=== PATIENT | female | born 1945 | race Caucasian/White ===

== ENCOUNTER 2019-01-20 22:29 | Inpatient (IN) | payer MEDICARE ==
[2019-01-20] MEDS ORDERED: DILTIAZEM DRIP BOLUS FROM BAG 1 MG SOLN IV ONE ×3 (22:40→23:49)
[2019-01-20] MEDS ORDERED: DILTIAZEM 125 MG in SODIUM CHLORIDE 0.9% 100 ML IV SCH (22:45)
--- NOTE | 2019-01-20 22:50 | ED ---
Chest Pain HPI - General Chief Complaint: Chest Pain Stated Complaint: Chest Pain Time Seen by Provider: 01/20/19 22:33 Source: patient, EMS Mode of arrival: EMS - History of Present Illness Initial Comments: This patient is 73-year-old woman who presents to be evaluated for chest pain and dyspnea that started approximately 2 hours ago. Patient states that she was reading when she noticed that she was developing substernal chest aching that was radiating to her neck. She also then started feeling short of breath. Following that she called EMS. EMS placed patient on monitor and found out appear to be atrial fibrillation with a rapid rate. Patient denies any history of this previously. She has not noted any worsening or relieving factors for the pain. Denies other symptoms. MD Complaint: chest pain Onset/Timin -: hour(s) Onset: during rest (While reading) Pain Location: substernal Pain Radiation: neck Severity: moderate Quality: aching Consistency: constant Improves With: nothing Worsens With: nothing Anginal Symptoms: dyspnea - Related Data Home Medications Medication Instructions Recorded Confirmed Anastrozole [Arimidex] 1 mg PO DAILY 01/01/14 01/20/19 Insulin Detemir (Levemir) [Levemir] 55 unit SQ BID 01/01/14 01/20/19 Spironolactone [Aldactone] 25 mg PO DAILY 01/01/14 01/20/19 metFORMIN HCL 1,000 mg PO BID 01/01/14 01/20/19 Atorvastatin [Lipitor] 40 mg PO HS 01/20/19 01/20/19 Dulaglutide [Trulicity] 1.5 mg SQ TH 01/20/19 01/20/19 Furosemide [Lasix] 20 mg PO W/SUPPER 01/20/19 01/20/19 Furosemide [Lasix] 40 mg PO DAILY@0800 01/20/19 01/20/19 Gabapentin 600 mg PO QID 01/20/19 01/20/19 Insulin Lispro [humaLOG Kwikpen] See Protocol SQ AC-TID 01/20/19 01/20/19 Levothyroxine Sodium [Synthroid] 75 mcg PO DAILY 01/20/19 01/20/19 Levothyroxine Sodium [Synthroid] 200 mcg PO DAILY 01/20/19 01/20/19 Lisinopril [Zestril] 5 mg PO DAILY 01/20/19 01/20/19 Magnesium Chloride [Slow-Mag] 64 mg PO W/SUPPER 01/20/19 01/20/19 Melatonin 3 mg PO HS 01/20/19 01/20/19 Metoprolol Tartrate [Lopressor] 50 mg PO BID 01/20/19 01/20/19 Potassium Gluconate 99 mg PO W/SUPPER 01/20/19 01/20/19 Venlafaxine HCl [Effexor XR] 75 mg PO HS 01/20/19 01/20/19 Venlafaxine HCl [Effexor XR] 150 mg PO DAILY 01/20/19 01/20/19 traMADol HCL 50 mg PO TID PRN 01/20/19 01/20/19 Allergies Allergy/AdvReac Type Severity Reaction Status Date / Time fluoxetine HCl [From Prozac] Allergy Itching Verified 01/20/19 23:19 gluten Allergy Abdominal Verified 01/21/19 11:15 Pain Sulfa (Sulfonamide Allergy Itching Verified 01/20/19 23:19 Antibiotics) Review of Systems ROS Statement: Those systems with pertinent positive or pertinent negative responses have been documented in the HPI. ROS Other: All systems not noted in ROS Statement are negative. Constitutional: Denies: fever, chills Respiratory: Reports: as per HPI, dyspnea. Denies: cough, hemoptysis Cardiovascular: Reports: chest pain. Denies: palpitations, orthopnea, edema, syncope Gastrointestinal: Denies: abdominal pain, nausea, vomiting, melena, hematochezia Genitourinary: Denies: dysuria, hematuria Musculoskeletal: Denies: back pain Skin: Denies: rash Neurological: Denies: headache, weakness, numbness EKG Findings - EKG Results: EKG: interpreted by ERMD, normal axis, normal QRS EKG shows: atrial fibrillation (Rate approximately 174 bpm) - Blocks, Webster, Hypertrophy, ST Abn: Repolarization changes or abnormalities: ST suggestive of injury (In the inferior and anterolateral leads) Past Medical History Past Medical History: Hypertension Additional Past Medical History / Comment(s): Heart disease Past Surgical History: Appendectomy Past Psychological History: No Psychological Hx Reported Smoking Status: Former smoker Past Alcohol Use History: None Reported Past Drug Use History: None Reported - Past Family History Father Family Medical History: Coronary Artery Disease (CAD), Myocardial Infarction (ID) Mother Family Medical History: Coronary Artery Disease (CAD) General Exam General appearance: alert, in no apparent distress Head exam: Present: atraumatic, normocephalic Eye exam: Present: normal appearance. Absent: scleral icterus, conjunctival injection ENT exam: Present: normal oropharynx Respiratory exam: Present: respiratory distress (Tachypnea, rate approximately 28.). Absent: wheezes, rales, rhonchi, stridor, accessory muscle use, decreased breath sounds, prolonged expiratory Cardiovascular Exam: Present: tachycardia (Rate approximately 170s during exam), irregular rhythm, normal heart sounds GI/Abdominal exam: Present: soft. Absent: distended, tenderness, guarding, rebound Extremities exam: Present: normal inspection, normal capillary refill. Absent: pedal edema, calf tenderness Back exam: Present: normal inspection Neurological exam: Present: alert Skin exam: Present: warm, dry, intact, normal color. Absent: rash Course Vital Signs 01/20/19 01/20/19 01/20/19 22:41 22:45 22:57 Temperature 98 F Pulse Rate 168 H 145 H Pulse Rate [ 168 H Jigman ] Respiratory 28 H 28 H Rate Blood Pressure 158/89 114/76 Blood Pressure [Right Calf] O2 Sat by Pulse 98 98 Oximetry 01/21/19 01/21/19 01/21/19 00:24 01:21 03:23 Temperature Pulse Rate 154 H 142 H 142 H Pulse Rate [ Jigman ] Respiratory 18 18 22 Rate Blood Pressure 126/83 109/78 100/57 Blood Pressure [Right Calf] O2 Sat by Pulse 99 100 97 Oximetry 01/21/19 01/21/19 01/21/19 04:39 06:16 07:22 Temperature 98.5 F Pulse Rate 149 H 141 H 135 H Pulse Rate [ Jigman ] Respiratory 22 20 22 Rate Blood Pressure 110/78 105/60 124/64 Blood Pressure [Right Calf] O2 Sat by Pulse 97 97 Oximetry 01/21/19 01/21/19 08:30 11:37 Temperature 98.0 F Pulse Rate Pulse Rate [ 135 H 57 L Jigman ] Respiratory 20 20 Rate Blood Pressure Blood Pressure 107/70 116/63 [Right Calf] O2 Sat by Pulse 100 98 Oximetry Chest Pain MDM - MDM This patient is 73-year-old woman presenting by EMS after she developed chest pain and dyspnea. Patient found to have new onset atrial fibrillation with a rate in the 170s on arrival. She started on Cardizem bolus and IV drip which did decrease her rate to the 130s to 140s. Patient states that her symptoms had improved markedly. Patient is admitted. Patient while holding in the emergency room did have repeat troponin which did increase to 1.5. Case discussed with cardiology, Dr. Pretty, and amiodarone will be added. Critical Care Time Critical Care Time: Yes (40 minutes) Disposition Clinical Impression: Atrial fibrillation with rapid ventricular response Disposition: ADMITTED IP TO THIS HOSP Condition: Serious
[2019-01-20 22:58] LABS: HCT 28.5 % (34.0-46.0); HGB 9.2 gm/dL (11.4-16.0); Hypochromasia Moderate; MCH 33.6 pg (25.0-35.0); MCHC 32.4 g/dL (31.0-37.0); MCV 103.5 fL (80.0-100.0); Macrocytosis Moderate; Mean Platelet Volume 6.9; Platelet Count 164 k/uL (150-450); Poikilocytosis Slight; RBC 2.75 m/uL (3.80-5.40); RDW 15.9 % (11.5-15.5); WBC 8.5 k/uL (3.8-10.6)
[2019-01-20 23:01] LABS: Appearance,Urine Clear (Clear); Bacteria,Urine Moderate /hpf; Bilirubin,Urine Negative (Negative); Blood,Urine Negative (Negative); Color,Urine Light Yellow; Glucose,Urine (UA) 1+ (Negative); Ketones,Urine Negative (Negative); Leukocyte Esterase,Urine Small (Negative); Nitrite,Urine Positive (Negative); Protein,Urine Negative (Negative); RBC,Urine 1 /hpf (0-5); Specific Gravity,Urine 1.013 (1.001-1.035); Squamous Epithelial Cell,Urine 2 /hpf (0-4); Urobilinogen,Urine <2.0 mg/dL (<2.0); WBC,Urine 8 /hpf (0-5)
--- NOTE | 2019-01-20 23:04 | XR ---
EXAMINATION TYPE: XR chest 1V portable DATE OF EXAM: 01/20/2019 COMPARISON: NONE HISTORY: Chest pain TECHNIQUE: Single frontal view of the chest is obtained. FINDINGS: Heart appears enlarged. Thoracic aorta is atheromatous. Costophrenic angles are clear. The re are chest leads. There are clips at the right axilla. IMPRESSION: Mild cardiomegaly. No acute lung disease. No heart failure.
[2019-01-20 23:10] LABS: Albumin 3.8 g/dL (3.5-5.0); Calcium 9.2 mg/dL (8.4-10.2); Total Bilirubin 0.2 mg/dL (0.2-1.3); Total Protein 6.7 g/dL (6.3-8.2)
[2019-01-20 23:13] LABS: INR 0.9 (<1.2); Partial Thromboplastin Time 22.6 sec (22.0-30.0); Prothrombin Time 9.6 sec (9.0-12.0)
[2019-01-20] MEDS ORDERED: SODIUM CHLORIDE 0.9% 1,000 ML IV ONE (23:14)
[2019-01-20 23:25] LABS: Eosinophils # (M) 0.34 k/uL (0-0.7); Lymphocytes # (M) 2.38 k/uL (1.0-4.8); Monocytes # (M) 1.28 k/uL (0-1.0); Neutrophils % (M) 53 %; Nucleated Red Blood Cells 0 /100 WBC (0-0); Polychromasia Present; Total Cells Counted 100
[2019-01-20] MEDS ORDERED: MORPHINE SULFATE 4 MG/ML SYRINGE IV STA (23:49)
[2019-01-21] MEDS ORDERED: SALINE NASAL GEL 14.1 GM TUBE TOPICAL PRN (00:19)
[2019-01-21] MEDS ORDERED: DILTIAZEM DRIP BOLUS FROM BAG 1 MG SOLN IV ONE (01:35)
[2019-01-21] MEDS ORDERED: NITROGLYCERIN SL TABS 0.4 MG TAB SUBLINGUAL PRN ×2 (01:40→12:45)
[2019-01-21] MEDS ORDERED: ENOXAPARIN 120 MG/0.8 ML SYRINGE SQ SCH (02:00)
[2019-01-21] MEDS ORDERED: GABAPENTIN 300 MG CAP PO STA (04:58)
[2019-01-21] MEDS: LEVOTHYROXINE 100 MCG TAB PO SCH (06:20)
[2019-01-21] MEDS: LEVOTHYROXINE 75 MCG TAB PO SCH (06:21)
[2019-01-21] MEDS ORDERED: DEXTROSE 5% IN WATER 100 ML with AMIODARONE 150 MG IV ONE (06:43)
[2019-01-21] MEDS ORDERED: AMIODARONE 360 MG in DEXTROSE 5% IN WATER 200 ML IV ONE ×2 (06:43)
[2019-01-21] MEDS ORDERED: HEPARIN SODIUM,PORCINE 5,000 UNIT/ML 1 ML VIAL IV ONE (06:49)
[2019-01-21] MEDS ORDERED: HEPARIN SODIUM,PORCINE 5,000 UNIT/ML 1 ML VIAL IV PRN (06:49)
[2019-01-21] MEDS: HEPARIN SOD,PORK IN 0.45% NACL 25,000 UNIT in 0.45% NACL 1 250ML.BAG IV SCH (07:03)
[2019-01-21] MEDS: SPIRONOLACTONE 25 MG TAB PO SCH (08:32)
[2019-01-21] MEDS: METOPROLOL TARTRATE 50 MG TAB PO SCH ×2 (08:33→20:14)
[2019-01-21] MEDS: ANASTROZOLE 1 MG TAB PO SCH (08:33)
[2019-01-21] MEDS: VENLAFAXINE HCL ER 150 MG CAP PO SCH (08:33)
[2019-01-21] MEDS: LISINOPRIL 5 MG TAB PO SCH (08:33)
[2019-01-21] MEDS: GABAPENTIN 300 MG CAP PO SCH ×4 (08:33→20:14)
[2019-01-21] MEDS: traMADol 50 MG TAB PO PRN ×2 (08:33→17:05)
[2019-01-21] MEDS ORDERED: metFORMIN 500 MG TAB PO SCH (09:00)
--- NOTE | 2019-01-21 10:39 | P.HPIM ---
History of Present Illness H&P Date: 01/21/19 Chief Complaint: Chest pain This is 73 years old female with past medical history significant for coronary artery disease presents to the emergency department with new onset chest pain. Patient described it as tightness to the mediastinal area radiating to her lower jaw and bilateral neck with some radiation to the left shoulder. Patient never experienced this pain before and stated that she had cardiac catheterization back in late where she received 4 stents and was placed on aspirin and Plavix for 2 years later Plavix was discontinued after 2 years and patient continue taking her aspirin on daily basis. Her pain in the emergency room responded to nitroglycerin. Patient was found to have tachycardia EKG showed a new onset atrial fibrillation with heart rate 150s. Patient was started on amiodarone drip, heparin drip and cardiology consult was obtained. First troponin was slightly elevated and the second troponin came up high to 1.1 with EKG changes showing atrial fibrillation with rapid ventricular response heart rate [address] depression on inferior leads 23 and aVF with reciprocal changes on V4 V5 and V6 but again patient was tachycardic at that time. Cardiology consult was obtained and have not seen the patient. Patient stated that her diabetes has been fairly controlled with values less than 200 all the time and taking Lantus 55 units twice daily along with fair units with meals plus the sliding scale. Patient is morbidly obese have been maintaining her medication and doctors follow-up accurately and stated that she's been taking her medication as prescribed continue to take her aspirin and daily basis and stated that her family history is significant for mother with pacemaker, father with heart disease and age 72 of myocardial infarction, daughter who is diagnosed with coronary artery disease and multiple stents. Patient currently is pain-free denying recent upper respiratory symptoms, fever, night sweats, productive cough or dysuria. 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 Patient had a history of right breast cancer and received bilateral mastectomy due to large size of breast on the left as well and that was causing patient's back pain and shoulder pain. All lymph nodes resected at that time on the right side that showed negative metastasis and patient did not receive any chemo or radiation after surgery but was maintained on anastrozole since 2008 and has been following up with her oncologist outpatient Review of Systems All 14 systems reviewed and negative except as above Past Medical History Past Medical History: Coronary Artery Disease (CAD), Diabetes Mellitus, Fibromyalgia, Hypertension, Thyroid Disorder Additional Past Medical History / Comment(s): chronic bronchitis, hashimotos, memory problems, 4 heart stents at [facility] History of Any Multi-Drug Resistant Organisms: None Reported Past Surgical History: Appendectomy, Cholecystectomy, Heart Catheterization, Heart Catheterization With Stent Past Anesthesia/Blood Transfusion Reactions: No Reported Reaction Date of Last Stent Placement:: 1997 Past Psychological History: No Psychological Hx Reported Smoking Status: Former smoker Past Alcohol Use History: None Reported Past Drug Use History: None Reported - Past Family History Father Family Medical History: Coronary Artery Disease (CAD), Myocardial Infarction (M I) Mother Family Medical History: Coronary Artery Disease (CAD) Medications and Allergies Home Medications Medication Instructions Recorded Confirmed Type Anastrozole [Arimidex] 1 mg PO DAILY 01/01/14 01/20/19 History Insulin Detemir (Levemir) [Levemir] 55 unit SQ BID 01/01/14 01/20/19 History Spironolactone [Aldactone] 25 mg PO DAILY 01/01/14 01/20/19 History metFORMIN HCL 1,000 mg PO BID 01/01/14 01/20/19 History Atorvastatin [Lipitor] 40 mg PO HS 01/20/19 01/20/19 History Dulaglutide [Trulicity] 1.5 mg SQ TH 01/20/19 01/20/19 History Furosemide [Lasix] 20 mg PO W/SUPPER 01/20/19 01/20/19 History Furosemide [Lasix] 40 mg PO DAILY@0800 01/20/19 01/20/19 History Gabapentin 600 mg PO QID 01/20/19 01/20/19 History Insulin Lispro [humaLOG Kwikpen] See Protocol SQ AC-TID 01/20/19 01/20/19 Hist ory Levothyroxine Sodium [Synthroid] 75 mcg PO DAILY 01/20/19 01/20/19 History Levothyroxine Sodium [Synthroid] 200 mcg PO DAILY 01/20/19 01/20/19 History Lisinopril [Zestril] 5 mg PO DAILY 01/20/19 01/20/19 History Magnesium Chloride [Slow-Mag] 64 mg PO W/SUPPER 01/20/19 01/20/19 History Melatonin 3 mg PO HS 01/20/19 01/20/19 History Metoprolol Tartrate [Lopressor] 50 mg PO BID 01/20/19 01/20/19 History Potassium Gluconate 99 mg PO W/SUPPER 01/20/19 01/20/19 History Venlafaxine HCl [Effexor XR] 75 mg PO HS 01/20/19 01/20/19 History Venlafaxine HCl [Effexor XR] 150 mg PO DAILY 01/20/19 01/20/19 History traMADol HCL 50 mg PO TID PRN 01/20/19 01/20/19 History Allergies Allergy/AdvReac Type Severity Reaction Status Date / Time fluoxetine HCl [From Prozac] Allergy Itching Verified 01/20/19 23:19 Sulfa (Sulfonamide Allergy Itching Verified 01/20/19 23:19 Antibiotics) Physical Exam Vitals: Vital Signs Temp Pulse Pulse Resp BP BP Pulse Ox 01/21/19 08:30 98.0 F 135 H 20 107/70 100 01/21/19 07:22 135 H 22 124/64 01/21/19 06:16 98.5 F 141 H 20 105/60 97 01/21/19 04:39 149 H 22 110/78 97 01/21/19 03:23 142 H 22 100/57 97 01/21/19 01:21 142 H 18 109/78 100 01/21/19 00:24 154 H 18 126/83 99 01/20/19 22:57 145 H 28 H 114/76 98 01/20/19 22:45 168 H 01/20/19 22:41 98 F 168 H 28 H 158/89 98 Intake and Output 01/20/19 01/21/19 01/21/19 22:59 06:59 14:59 Intake Total 21.833 Output Total 2100 Balance 21.833 -2100 Intake: Intake, IV Titration 21.833 Amount Diltiazem 125 mg In 21.833 Sodium Chloride 0.9% 100 ml @ 5 MG/HR 5 mls/hr IV .Q24H [facility] Rx#:[id number] Output: Urine 2100 Other: Voiding Method Indwelling Catheter Weight 117.027 kg Gen.: in stated age, no acute distress, morbidly obese Heart: Normal S1-S2 Lungs: Clear to auscultation bilaterally Abdomen: Soft, no tenderness, positive bowel sounds in all 4 quadrant no guarding or rebound Skin: No new rash Psych: Alert and oriented 3 Neuro: No focal deficit Lower extremity enlarged but no pitting edema Results CBC & Chem 7: 01/20/19 22:44 01/20/19 22:44 Labs: Abnormal Lab Results - Last 24 Hours (Table) 01/20/19 01/20/19 01/20/19 Range/Units 22:44 22:44 22:44 RBC 2.75 L (3.80-5.40) m/uL Hgb 9.2 L (11.4-16.0) gm/dL Hct 28.5 L (34.0-46.0) % MCV 103.5 H (80.0-100.0) fL RDW 15.9 H (11.5-15.5) % Monocytes # (Manual) 1.28 H (0-1.0) k/uL Carbon Dioxide 20 L (22-30) mmol/L BUN 24 H (7-17) mg/dL Glucose 245 H (74-99) mg/dL Troponin I (0.000-0.034) ng/mL Urine Glucose (UA) 1+ H (Negative) Urine Nitrite Positive H (Negative) Ur Leukocyte Esterase Small H (Negative) Urine WBC 8 H (0-5) /hpf Urine Bacteria Moderate H (None) /hpf 01/21/19 Range/Units 05:29 RBC (3.80-5.40) m/uL Hgb (11.4-16.0) gm/dL Hct (34.0-46.0) % MCV (80.0-100.0) fL RDW (11.5-15.5) % Monocytes # (Manual) (0-1.0) k/uL Carbon Dioxide (22-30) mmol/L BUN (7-17) mg/dL Glucose (74-99) mg/dL Troponin I 1.150 H* (0.000-0.034) ng/mL Urine Glucose (UA) (Negative) Urine Nitrite (Negative) Ur Leukocyte Esterase (Negative) Urine WBC (0-5) /hpf Urine Bacteria (None) /hpf Thrombosis Risk Factor Assmnt - Choose All That Apply Any of the Below Risk Factors Present?: Yes Each Factor Represents 1 point: Obesity (BMI >25) Other Risk Factors: Yes Each Risk Factor Represents 2 Points: Age 61-74 years Thrombosis Risk Factor Assessment Total Risk Factor Score: 3 Thrombosis Risk Factor Assessment Level: Moderate Risk Assessment and Plan Assessment: 1. Atrial fibrillation with rapid ventricular response. 2. Elevated troponin which could represent non-ST elevation NM versus demand mismatch ischemia. 3. New onset chest pain. 4. Morbid obesity. 5. Diabetes mellitus type 2 insulin-dependent. 6. Hypertension. 7. Coronary artery disease status post stenting in the late . 8. Breast cancer status post bilateral mastectomy on anastrozole therapy. 9. Fibromyalgia. 10. Hyperlipidemia. 11. Anxiety and depression. 12. Hypothyroidism. Patient was started on heparin drip and amiodarone drip in the emergency department, heart rate still fluctuating between 85 and 120, patient is no l onger having chest pain and seems to be hemodynamically stable with stable vital signs, cardiology informed about current condition and consideration for heart rate controlling agent to be determined by cardiology and we will keep patient nothing by mouth except for ice chips at this point for possible cardiac catheterization as ischemia likely the culprit for her atrial fibrillation. We will resume her Lantus twice daily regimen and place patient on insulin sliding scale, pain for glucose less than 180 during this hospital stay. Hold metformin and resume her blood pressure medication with holding parameters. Continue her thyroid fibromyalgia and depression medication. Continue anastrozole. Repeat EKG stat when heart rate is below 100. Plan discussed with patient and nursing staff and discussed with cardiology who was running on the floor
[2019-01-21 11:12] LABS: Glucose,Whole Blood 309 mg/dL (75-99)
[2019-01-21] MEDS: INSULIN DETEMIR (LEVEMIR) 100 UNIT/ML SYR SQ SCH ×2 (11:16→20:15)
[2019-01-21] MEDS: INSULIN ASPART (NovoLOG) 100 UNIT/ML VIAL SQ SCH ×3 (11:17→20:15)
[2019-01-21] MEDS ORDERED: FUROSEMIDE 40 MG TAB PO STA (11:59)
[2019-01-21 12:43] LABS: Glucose,Whole Blood 320 mg/dL (75-99)
[2019-01-21] MEDS ORDERED: AMIODARONE 300 MG in DEXTROSE 5% IN WATER 250 ML IV SCH ×2 (12:43)
[2019-01-21] MEDS ORDERED: SODIUM CHLORIDE 0.9% 1,000 ML in EMPTY BAG 1 BAG IV ONE (12:45)
[2019-01-21] MEDS ORDERED: ALPRAZolam 0.25 MG TAB PO PRN (12:45)
[2019-01-21] MEDS ORDERED: ASPIRIN 325 MG TAB PO STA (12:45)
[2019-01-21] MEDS ORDERED: ATORVASTATIN 80 MG TAB PO STA (12:45)
[2019-01-21] MEDS ORDERED: ALPRAZolam 0.5 MG TAB PO PRN (12:45)
[2019-01-21 13:18] LABS: Basophils % (A) 0 %; Eosinophils # (A) 0.1 k/uL (0-0.7); Eosinophils % (A) 2 %; HCT 29.8 % (34.0-46.0); HGB 9.2 gm/dL (11.4-16.0); Hypochromasia Marked; Lymphocytes # (A) 0.9 k/uL (1.0-4.8); Lymphocytes % (A) 11 %; MCH 33.5 pg (25.0-35.0); MCV 107.8 fL (80.0-100.0); Macrocytosis Marked; Monocytes # (A) 0.5 k/uL (0-1.0); Monocytes % (A) 7 %; Neutrophils # (A) 6.1 k/uL (1.3-7.7); Neutrophils % (A) 78 %; Platelet Count 177 k/uL (150-450); Poikilocytosis Slight; RBC 2.76 m/uL (3.80-5.40); RDW 15.8 % (11.5-15.5); WBC 7.8 k/uL (3.8-10.6)
--- NOTE | 2019-01-21 13:35 | P.CRDCN ---
History of Present Illness Consult date: 01/21/19 Reason for Consult (text): Letha. marcell with RVR History of present illness: This is a 73-year-old female patient of Dr. Mcwilliams with past medical history of coronary artery disease with stents previously done at [facility], diabetes mellitus, hypertension, hypothyroidism with history of Sindhu's, breast cancer. Patient states she developed chest pain that went up into her jaw along with mild shortness of breath. She states she felt a little lightheaded and dizzy. She denies any palpitations. She came into [facility] emergency center and found to have atrial fibrillation with a heart rate in the 150s. She was started on Cardizem drip but heart rate remained in the 150s and she was started on amiodarone drip. Heart rate dropped down to 130s and now converted to a sinus rhythm. Amiodarone drip will be discontinued. Troponins been elevated initially 0.012, 1.150, 2.620. Hemoglobin 9.2, BUN 24 and creatinine 0.93 at the time of this evaluation. Patient states that the chest pain going up into her jaw, shortness of breath and dizziness are gone. Patient is very anxious and voices that she does not want to undergo heart catheterization right now. Patient will be set up for heart catheterization tomorrow morning. Review Of Systems: Constitutional: No fever, no chills, no night sweats. No weight change. No weakness, fatigue or lethargy. No daytime sleepiness. EENT: No headache. No blurred vision or double vision, no loss of vision. No loss of Hearing, no ringing in the ears, no dizziness. No nasal drainage or congestion. No epistaxis. No sore throat. Lungs: No shortness of breath, cough, no sputum production. No wheezing. Cardiovascular: No chest pain, no lower extremity edema. No palpitations. No paroxysmal nocturnal dyspnea. No orthopnea. No lightheadedness or dizziness. No syncopal episodes. Abdominal: No abdominal pain. No nausea, vomiting. No diarrhea. No constipation. No bloody or tarry stools.. No loss of appetite. Genitourinary: No dysuria, increased frequency, urgency. No urinary retention. Musculoskeletal: No myalgias. No muscle weakness, no gait dysfunction, no frequent falls. No back pain. No neck pain. Integumentary: No wounds, no lesions. No rash or pruritus. No unusual bruising. No change in hair or nails. Neurologic: No aphasia. No facial droop. No change in mentation. No head injury. No headache. No paralysis. No paresthesia. Psychiatric: No depression. No anxiety. No mood swings. Endocrine: No abnormal blood sugars. No weight change. No excessive sweating or thirst. No cold intolerance. No weight change. Gen: This is a a morbidly obese female. Patient is resting comfortably and appears to be in no acute distress. HEENT: Head is atraumatic, normocephalic. Pupils equal, round. Sclerae is ani cteric. NECK: Supple. No JVD. No lymphadenopathy. No thyromegaly. LUNGS: Clear to auscultation. No wheezes or rhonchi. No intercostal retractions. HEART: Regular rate and rhythm. No murmur. ABDOMEN: Soft. Bowel sounds are present. No masses. No tenderness. Teixeira catheter in place. EXTREMITIES: 1+ bilateral pedal edema. No calf tenderness. NEUROLOGICAL: Patient is awake, alert and oriented x3. Cranial nerves 2 through 12 are grossly intact. Assessment: New onset A. fib with RVR, probable paroxysmal atrial fibrillation Problem non-ST elevated myocardial infarction History of coronary artery disease with 4 stents and last heart catheterization in 1997 at [facility] Diabetes mellitus type 2. Hypertension Hypothyroidism History of breast cancer Plan: Discontinue amiodarone drip Start amiodarone 200 mg 3 times daily orally Continue Lopressor 50 mg twice daily Continue aspirin, spironolactone, Lasix 40 mg in the morning and 20 g in the evening Continue heparin drip Scheduled for heart catheterization to further assess coronary artery disease. Risks benefits and alternative therapies above-mentioned procedure and for gross sedation/analgesia as well as the serum blood product administration, if indicated as they pertain to this patient. Hold metformin for scheduled heart catheterization Obtain 2-D echocardiogram and Doppler study to assess cardiac structure and f unction Further recommendations to follow based upon clinical course Thank you kindly for this consultation Nurse practitioner note has been reviewed, I agree with documented findings and plan of care. Patient was seen and examined. Past Medical History Past Medical History: Coronary Artery Disease (CAD), Diabetes Mellitus, Fibromyalgia, Hypertension, Thyroid Disorder Additional Past Medical History / Comment(s): chronic bronchitis, hashimotos, memory problems, 4 heart stents at [facility] History of Any Multi-Drug Resistant Organisms: None Reported Past Surgical History: Appendectomy, Cholecystectomy, Heart Catheterization, Heart Catheterization With Stent Past Anesthesia/Blood Transfusion Reactions: No Reported Reaction Date of Last Stent Placement:: 1997 Past Psychological History: No Psychological Hx Reported Smoking Status: Former smoker Past Alcohol Use History: None Reported Past Drug Use History: None Reported - Past Family History Father Family Medical History: Coronary Artery Disease (CAD), Myocardial Infarction (NH) Mother Family Medical History: Coronary Artery Disease (CAD) Medications and Allergies Home Medications Medication Instructions Recorded Confirmed Type Anastrozole [Arimidex] 1 mg PO DAILY 01/01/14 01/20/19 History Insulin Detemir (Levemir) [Levemir] 55 unit SQ BID 01/01/14 01/20/19 History Spironolactone [Aldactone] 25 mg PO DAILY 01/01/14 01/20/19 History metFORMIN HCL 1,000 mg PO BID 01/01/14 01/20/19 History Atorvastatin [Lipitor] 40 mg PO HS 01/20/19 01/20/19 History Dulaglutide [Trulicity] 1.5 mg SQ TH 01/20/19 01/20/19 History Furosemide [Lasix] 20 mg PO W/SUPPER 01/20/19 01/20/19 History Furosemide [Lasix] 40 mg PO DAILY@0800 01/20/19 01/20/19 History Gabapentin 600 mg PO QID 01/20/19 01/20/19 History Insulin Lispro [humaLOG Kwikpen] See Protocol SQ AC-TID 01/20/19 01/20/19 History Levothyroxine Sodium [Synthroid] 75 mcg PO DAILY 01/20/19 01/20/19 History Levothyroxine Sodium [Synthroid] 200 mcg PO DAILY 01/20/19 01/20/19 History Lisinopril [Zestril] 5 mg PO DAILY 01/20/19 01/20/19 History Magnesium Chloride [Slow-Mag] 64 mg PO W/SUPPER 01/20/19 01/20/19 History Melatonin 3 mg PO HS 01/20/19 01/20/19 History Metoprolol Tartrate [Lopressor] 50 mg PO BID 01/20/19 01/20/19 History Potassium Gluconate 99 mg PO W/SUPPER 01/20/19 01/20/19 History Venlafaxine HCl [Effexor XR] 75 mg PO HS 01/20/19 01/20/19 History Venlafaxine HCl [Effexor XR] 150 mg PO DAILY 01/20/19 01/20/19 History traMADol HCL 50 mg PO TID PRN 01/20/19 01/20/19 History Allergies Allergy/AdvReac Type Severity Reaction Status Date / Time fluoxetine HCl [From Prozac] Allergy Itching Verified 01/20/19 23:19 gluten Allergy Abdominal Verified 01/21/19 11:15 Pain Sulfa (Sulfonamide Allergy Itching Verified 01/20/19 23:19 Antibiotics) Physical Exam Vitals: Vital Signs Temp Pulse Pulse Resp BP BP Pulse Ox 01/21/19 11:37 57 L 20 116/63 98 01/21/19 08:30 98.0 F 135 H 20 107/70 100 01/21/19 07:22 135 H 22 124/64 01/21/19 06:16 98.5 F 141 H 20 105/60 97 01/21/19 04:39 149 H 22 110/78 97 01/21/19 03:23 142 H 22 100/57 97 01/21/19 01:21 142 H 18 109/78 100 01/21/19 00:24 154 H 18 126/83 99 01/20/19 22:57 145 H 28 H 114/76 98 01/20/19 22:45 168 H 01/20/19 22:41 98 F 168 H 28 H 158/89 98 Intake and Output 01/20/19 01/21/19 01/21/19 22:59 06:59 14:59 Intake Total 21.833 Output Total 2100 Balance 21.833 -2100 Intake: Intake, IV Titration 21.833 Amount Diltiazem 125 mg In 21.833 Sodium Chloride 0.9% 100 ml @ 5 MG/HR 5 mls/hr IV .Q24H [facility] Rx#:[id number] Output: Urine 2100 Other: Voiding Method Indwelling Catheter Weight 117.027 kg Results 01/21/19 12:49 01/20/19 22:44 Cardiac Enzymes 1001/20/19 01/21/19 Range/Units 22:44 22:44 05:29 AST 25 (14-36) U/L Troponin I <0.012 1.150 H* (0.000-0.034) ng/mL 01/21/19 Range/Units 10:52 AST (14-36) U/L Troponin I 2.620 H* (0.000-0.034) ng/mL Coagulation 01/20/19 Range/Units 22:44 PT 9.6 (9.0-12.0) sec APTT 22.6 (22.0-30.0) sec CBC 01/20/19 Range/Units 22:44 WBC 8.5 (3.8-10.6) k/uL RBC 2.75 L (3.80-5.40) m/uL Hgb 9.2 L (11.4-16.0) gm/dL Hct 28.5 L (34.0-46.0) % Plt Count 164 (150-450) k/uL Comprehensive Metabolic Panel 01/20/19 Range/Units 22:44 Sodium 139 (137-145) mmol/L Potassium 4.0 (3.5-5.1) mmol/L Chloride 105 (98-107) mmol/L Carbon Dioxide 20 L (22-30) mmol/L BUN 24 H (7-17) mg/dL Creatinine 0.93 (0.52-1.04) mg/dL Glucose 245 H (74-99) mg/dL Calcium 9.2 (8.4-10.2) mg/dL AST 25 (14-36) U/L ALT 33 (9-52) U/L Alkaline Phosphatase 100 (38-126) U/L Total Protein 6.7 (6.3-8.2) g/dL Albumin 3.8 (3.5-5.0) g/dL Current Medications Generic Name Dose Route Start Last Admin Trade Name Freq PRN Reason Stop Dose Admin Anastrozole 1 mg 01/21/19 09:00 01/21/19 08:33 Arimidex PO 1 mg DAILY [facility] Administration Aspirin 325 mg 01/22/19 09:00 Aspirin PO DAILY [facility] Atorvastatin Calcium 40 mg 01/21/19 21:00 Lipitor PO HS [facility] Furosemide 40 mg 01/22/19 08:00 Lasix PO DAILY@0800 [facility] Furosemide 20 mg 01/21/19 17:30 Lasix PO W/SUPPER [facility] Gabapentin 600 mg 01/21/19 09:00 01/21/19 08:33 Neurontin PO 600 mg QID [facility] Administration Heparin Sodium (Porcine) 0 unit 01/21/19 06:49 Heparin IV PER PROTOCOL PRN Low PTT Protocol Diltiazem HCl 125 mg/ Sodium 125 mls @ 5 mls/hr 01/20/19 22:45 01/21/19 03:18 Chloride IV 10 mg/hr .Q24H [facility] 10 mls/hr Infusion 5 MG/HR Heparin Sodium/Sodium Chloride 250 mls @ 9.947 mls/hr 01/21/19 07:00 01/21/19 07:03 25,000 unit/ Sodium Chloride IV 8.5 units/kg/hr .Q24H [facility] 9.947 mls/hr Administration Protocol 8.5 UNITS/KG/HR Insulin Aspart 0 unit 01/21/19 12:30 01/21/19 11:17 Novolog SQ 8 unit ACHS [facility] Administration Protocol Insulin Detemir 55 unit 01/21/19 11:15 01/21/19 11:16 Levemir SQ Not Given BID@0700,2100 [facility] Levothyroxine Sodium 200 mcg 01/21/19 06:30 01/21/19 06:20 Synthroid PO 200 mcg DAILY@0630 [facility] Administration Levothyroxine Sodium 75 mcg 01/21/19 06:30 01/21/19 06:21 Synthroid PO 75 mcg DAILY@0630 [facility] Administration Lisinopril 5 mg 01/21/19 09:00 01/21/19 08:33 Zestril PO 5 mg DAILY [facility] Administration Metformin HCl 1,000 mg 01/21/19 09:00 01/21/19 08:32 Glucophage PO 1,000 mg BID [facility] Administration Metoprolol Tartrate 50 mg 01/21/19 09:00 01/21/19 08:33 Lopressor PO 50 mg BID [facility] Administration Nitroglycerin 0.4 mg 01/21/19 01:40 Nitrostat SUBLINGUAL Q5M PRN Chest Pain Dulaglutide [ 1.5 mg 01/26/19 09:00 Trulicity] 1.5 Mg SQ Th@0900 [facility] Potassium Chloride 10 meq 01/21/19 17:30 K-Dur 10 PO W/SUPPER [facility] Sodium Chloride 1 applic 01/21/19 00:19 01/21/19 04:41 [place] Nasal Gel TOPICAL 1 applic Q4HR PRN Administration Dry Nasal Passages Spironolactone 25 mg 01/21/19 09:00 01/21/19 08:32 Aldactone PO 25 mg DAILY [facility] Administration Tramadol HCl 50 mg 01/21/19 01:43 01/21/19 08:33 Ultram PO 50 mg TID PRN Administration Pain Venlafaxine HCl 150 mg 01/21/19 09:00 01/21/19 08:33 Effexor Xr PO 150 mg DAILY [facility] Administration Venlafaxine HCl 75 mg 01/21/19 21:00 Effexor Xr PO HS [facility] Intake and Output 01/20/19 01/21/19 01/21/19 22:59 06:59 14:59 Intake Total 21.833 Output Total 2100 Balance 21.833 -2100 Intake: Intake, IV Titration 21.833 Amount Diltiazem 125 mg In 21.833 Sodium Chloride 0.9% 100 ml @ 5 MG/HR 5 mls/hr IV .Q24H [facility] Rx#:[id number] Output: Urine 2100 Other: Voiding Method Indwelling Catheter Weight 117.027 kg 01/20/19 22:44 01/20/19 22:44
[2019-01-21] MEDS: FUROSEMIDE 20 MG TAB PO SCH (15:52)
[2019-01-21 16:55] LABS: Glucose,Whole Blood 204 mg/dL (75-99)
[2019-01-21] MEDS: AMIODARONE 200 MG TAB PO SCH ×2 (17:04→20:14)
[2019-01-21] MEDS: POTASSIUM CHLORIDE ER 10 MEQ TAB.ER.PRT PO SCH (17:04)
[2019-01-21] MEDS ORDERED: MAGNESIUM CHLORIDE 64 MG PO SCH (17:30)
[2019-01-21 20:07] LABS: Glucose,Whole Blood 201 mg/dL (75-99)
[2019-01-21] MEDS: VENLAFAXINE HCL ER 75 MG CAP PO SCH (20:20)
[2019-01-22] MEDS: traMADol 50 MG TAB PO PRN ×2 (00:41→11:43)
[2019-01-22] MEDS: HEPARIN SOD,PORK IN 0.45% NACL 25,000 UNIT in 0.45% NACL 1 250ML.BAG IV SCH (00:42)
[2019-01-22] MEDS: AMIODARONE 200 MG TAB PO SCH ×3 (05:55→20:32)
[2019-01-22] MEDS: FUROSEMIDE 40 MG TAB PO SCH (05:55)
[2019-01-22] MEDS: METOPROLOL TARTRATE 50 MG TAB PO SCH ×2 (05:55→20:32)
[2019-01-22] MEDS: LEVOTHYROXINE 100 MCG TAB PO SCH (05:55)
[2019-01-22] MEDS: LEVOTHYROXINE 75 MCG TAB PO SCH (05:55)
[2019-01-22] MEDS: ANASTROZOLE 1 MG TAB PO SCH (05:56)
[2019-01-22] MEDS: VENLAFAXINE HCL ER 150 MG CAP PO SCH (05:56)
[2019-01-22] MEDS: GABAPENTIN 300 MG CAP PO SCH ×4 (05:56→20:33)
[2019-01-22] MEDS: LISINOPRIL 5 MG TAB PO SCH (05:56)
[2019-01-22] MEDS: SPIRONOLACTONE 25 MG TAB PO SCH (05:56)
[2019-01-22 06:16] LABS: Glucose,Whole Blood 176 mg/dL (75-99)
[2019-01-22 06:18] LABS: Anisocytosis Slight; Basophils % (A) 0 %; Eosinophils # (A) 0.2 k/uL (0-0.7); Eosinophils % (A) 3 %; HCT 24.4 % (34.0-46.0); HGB 7.9 gm/dL (11.4-16.0); Hypochromasia Moderate; Lymphocytes # (A) 1.3 k/uL (1.0-4.8); Lymphocytes % (A) 18 %; MCH 33.6 pg (25.0-35.0); MCHC 32.6 g/dL (31.0-37.0); Macrocytosis Moderate; Mean Platelet Volume 6.3; Monocytes # (A) 0.6 k/uL (0-1.0); Monocytes % (A) 9 %; Neutrophils # (A) 4.5 k/uL (1.3-7.7); Neutrophils % (A) 66 %; Platelet Count 147 k/uL (150-450); Poikilocytosis Slight; RBC 2.36 m/uL (3.80-5.40); RDW 16.1 % (11.5-15.5); WBC 6.8 k/uL (3.8-10.6)
[2019-01-22] MEDS: INSULIN ASPART (NovoLOG) 100 UNIT/ML VIAL SQ SCH ×4 (06:30→20:33)
[2019-01-22] MEDS: INSULIN DETEMIR (LEVEMIR) 100 UNIT/ML SYR SQ SCH ×2 (06:30→20:33)
[2019-01-22 07:03] LABS: Cholesterol 142 mg/dL (<200); HDL Cholesterol 31 mg/dL (40-60); LDL Cholesterol,Calculated 78 mg/dL (0-99); Triglycerides 167 mg/dL (<150)
[2019-01-22] MEDS ORDERED: ASPIRIN 325 MG TAB PO SCH (09:00)
[2019-01-22] MEDS ORDERED: LIDOCAINE 1% INJ 10MG/ML (20 ML MDV) ONE (09:28)
[2019-01-22] MEDS ORDERED: fentaNYL (PF) 50 MCG/ML 2 ML AMP ONE (09:28)
[2019-01-22] MEDS ORDERED: VERAPAMIL 2.5 MG/ML 2 ML AMP ONE (09:28)
[2019-01-22] MEDS: fentaNYL (PF) 50 MCG/ML 2 ML AMP IV ONE ×2 (09:45→10:22)
[2019-01-22] MEDS ORDERED: IV FLUID CONTINUATION 1,000 ML IV ONE (09:45)
[2019-01-22] MEDS ORDERED: MIDAZOLAM 2 MG/2 ML VIAL IV ONE (09:45)
[2019-01-22] MEDS ORDERED: LIDOCAINE 1% INJ 10MG/ML (20 ML MDV) SQ ONE (09:46)
[2019-01-22] MEDS ORDERED: BIVALIRUDIN BOLUS 250 MG/50 ML IV ONE ×2 (10:15)
[2019-01-22] MEDS ORDERED: BIVALIRUDIN 250 MG in SODIUM CHLORIDE 0.9% 50 ML IV ONE (10:16)
[2019-01-22] MEDS ORDERED: CLOPIDOGREL 75 MG TAB ONE (10:16)
--- NOTE | 2019-01-22 10:19 | P.CARDCATH ---
Date of Procedure: 01/22/19 Preoperative Diagnosis: Non-STEMI, atrial fibrillation Postoperative Diagnosis: Critical stenosis involving the mid RCA at the distal end of previous stent. Procedure(s) Performed: Left heart catheterization without left ventriculography Description of Procedure: HISTORY: This is a 73-year-old female with history of coronary artery disease in the previous stent placement who was admitted to the hospital with chest pain and evidence of atrial fibrillation with rapid and corresponds. Her troponin went up to 2.7 suggestive of non-STEMI. Patient is advised to have a cardiac catheterization for definitive diagnosis. Patient also has chronic anemia CONSENT:I have discussed the risks, benefits and alternative therapies for the above-mentioned procedure and for both sedation/analgesia as well as necessary blood product administration, if indicated, as they pertain to this patient. The patient has indicated understanding and acceptance of the risks and procedures discussed. PROCEDURE: Patient was brought to the lab in a fasting state. Patient was given some IV sedation. The right groin is infiltrated with lidocaine and right femoral artery was entered using Seldinger technique. A 6-[place] catheter was left in place and selective coronary arteriography was performed. Patient tolerated the procedure well. . No immediate complications were noted and patient went on to have stent placement of the RCA Conscious Sedation: Versed 1mg Fentanyl 50 g Duration 19minutes HEMODYNAMICS: Blood pressure is 112/68. End-diastolic pressure is about 25. There was no gradient across the aortic valve SELECTIVE CORONARY ARTERIOGRAPHY: LEFT MAIN: The left main is short with mild disease. No dampening upon engagement of the left main THE LEFT ANTERIOR DESCENDING CORONARY ARTERY: This is a fairly caliber vessel, gives rise good-sized diagonal branch. The LAD and branches are free of occlusive disease THE LEFT CIRCUMFLEX AND IS CORONARY ARTERY:. This is a good caliber vessel giving rise good-sized OM branch. Circumflex coronary artery and branches are free of occlusive disease THE RIGHT CORONARY ARTERY:. This is a good caliber vessel with a in-stent stenosis involving the distal end in the mid RCA. There appears to be about 70-80% stenosis which is eccentric LEFT VENTRICULOGRAPHY: Not performed FINAL IMPRESSION:. Critical lesion involving the mid RCA. Left coronary system is free of occlusive disease PLAN:. Stent placement of the mid RCA PROGNOSIS: fair
[2019-01-22] MEDS ORDERED: CLOPIDOGREL 75 MG TAB PO ONE (10:21)
[2019-01-22] MEDS ORDERED: NITROGLYCERIN 1000MCG/10ML SYRINGE INTRACORON ONE (10:23)
[2019-01-22] MEDS ORDERED: HYDROmorphone 1 MG/ML 1 ML SYRINGE ONE (10:25)
[2019-01-22] MEDS ORDERED: HYDROmorphone 1 MG/ML 1 ML SYRINGE IVP ONE (10:27)
[2019-01-22] MEDS ORDERED: IOPAMIDOL-370 125ML BTL INJ ONE (10:27)
[2019-01-22] MEDS ORDERED: RX INFO: IV CONTRAST WAS GIVEN 1 EACH MISC MISCELLANE PRN (10:43)
[2019-01-22] MEDS ORDERED: ATROPINE SULFATE 0.1 MG/ML 10ML SYRINGE IV PRN (10:43)
[2019-01-22] MEDS ORDERED: NITROGLYCERIN SL TABS 0.4 MG TAB SUBLINGUAL PRN (10:43)
[2019-01-22] MEDS ORDERED: ZOLPIDEM 5 MG TAB PO PRN (10:43)
[2019-01-22] MEDS ORDERED: MAG HYDROX/AL HYDROX/SIMETH 30 ML CUP PO PRN (10:43)
[2019-01-22] MEDS ORDERED: SODIUM CHLORIDE 0.9% 1,000 ML IV SCH (10:45)
--- NOTE | 2019-01-22 10:52 | P.PCN ---
Date of Procedure: 01/22/19 Operative Findings: PERCUTANEOUS CORONARY INTERVENTION (PCI) Performing physician: Ron Pretty M.D. Procedure performed: Successful stenting of the mid RCA using 3.5 x 15 mm Xience AUTUMN with an excellent angiographic results and reduction of stenosis from 80% to 0% Indication: This is a pleasant 73-year-old female patient with a past medical history significant for diabetes, hypertension, dyslipidemia, paroxysmal atrial fibrillation, as well as history of coronary artery disease and prior stenting of the RCA who sees Dr. Mcwilliams in the office presented to the hospital with a chest discomfort and ruled in for acute non-ST patient myocardial infarction. She underwent a heart catheterization by Dr. Dr. Mcwilliams and was found to have severe disease involving the mid RCA. Advised was toward percutaneous coronary intervention. Approach: Right common femoral artery. Complication: None Level of sedation: Moderate sedation length of 22 minutes Procedure description: Please refer to diagnosed heart catheterization was performed by Dr. Dr. Mcwilliams earlier today. Anticoagulation was initiated using Angiomax. The RCA was engaged using JR4 guide. A run-through wire was used to wire the right coronary artery and the wire was advanced in the PDA branch of the RCA. Balloon angioplasty and predilatation was performed using 2.5 x 10 mm AngioSculp balloon which was inflated under 18 artie 3 times in the mid RCA. After that I deployed 3.5 x 15 mm Xience AUTUMN where the stent was positioned under fluoroscopy guidance and deployed under 20 artie for 20 seconds. The following angiogram showed an excellent angiographic results with reduction of stenosis from 80% to 0% with ZEFERINO-3 flow. Postprocedure management: 1. Dual antiplatelet therapy 2. Risk factors modification 3. Standard groin care 4. Follow-up with the patient
--- NOTE | 2019-01-22 10:54 | P.PN ---
Subjective Progress Note Date: 01/22/19 Principal diagnosis: Chest pain, atrial fibrillation with rapid ventricular response Patient continued to be hemodynamically stable, heart rate seems to be under better control, patient is denying chest pain shortness breath nausea vomiting abdominal pain dizziness lightheadedness or blurry vision Objective - Vital Signs Vital signs: Vital Signs Temp 98.6 F 01/22/19 08:00 Pulse 90 01/22/19 08:00 Resp 18 01/22/19 08:00 BP 113/52 01/22/19 08:00 Pulse Ox 92 L 01/22/19 08:00 Intake & Output 01/21/19 01/22/19 01/22/19 18:59 06:59 18:59 Intake Total 784.987 149.608 190 Output Total 2100 650 Balance -1315.013 -500.392 190 Weight 122.7 kg Intake: IV 190 Intake, IV Titration 64.987 149.608 Amount Heparin Sod,Pork in 0.45% 64.987 149.608 NaCl 25,000 unit In 0.45 % NaCl 1 250ml.bag @ 8.5 UNITS/KG/HR 9.947 mls/hr IV .Q24H [facility] Rx#: [id number] Oral 720 Output: Urine 2100 650 Other: Voiding Method Indwelling Catheter Indwelling Catheter Indwelling Catheter # Voids 1 - Exam Gen.: in stated age, no acute distress Heart: Normal S1-S2 Lungs: Clear to auscultation bilaterally Abdomen: Soft, no tenderness, positive bowel sounds in all 4 quadrant no guarding or rebound Skin: No new rash Psych: Alert and oriented 3 Neuro: No focal deficit - Labs CBC & Chem 7: 01/22/19 05:58 01/20/19 22:44 Labs: Abnormal Lab Results - Last 24 Hours (Table) 01/21/19 01/21/19 01/21/19 Range/Units 10:52 11:10 12:42 RBC (3.80-5.40) m/uL Hgb (11.4-16.0) gm/dL Hct (34.0-46.0) % MCV (80.0-100.0) fL RDW (11.5-15.5) % Plt Count (150-450) k/uL Lymphocytes # (1.0-4.8) k/uL Macrocytosis APTT (22.0-30.0) sec POC Glucose (mg/dL) 309 H 320 H (75-99) mg/dL Troponin I 2.620 H* (0.000-0.034) ng/mL Triglycerides (<150) mg/dL HDL Cholesterol (40-60) mg/dL 01/21/19 01/21/19 01/21/19 Range/Units 12:49 16:45 19:45 RBC 2.76 L (3.80-5.40) m/uL Hgb 9.2 L (11.4-16.0) gm/dL Hct 29.8 L (34.0-46.0) % MCV 107.8 H (80.0-100.0) fL RDW 15.8 H (11.5-15.5) % Plt Count (150-450) k/uL Lymphocytes # 0.9 L (1.0-4.8) k/uL Macrocytosis Marked A APTT 51.6 H (22.0-30.0) sec POC Glucose (mg/dL) 204 H (75-99) mg/dL Troponin I (0.000-0.034) ng/mL Triglycerides (<150) mg/dL HDL Cholesterol (40-60) mg/dL 01/21/19 01/22/19 01/22/19 Range/Units 19:54 05:58 05:58 RBC 2.36 L (3.80-5.40) m/uL Hgb 7.9 L (11.4-16.0) gm/dL Hct 24.4 L (34.0-46.0) % MCV 103.0 H (80.0-100.0) fL RDW 16.1 H (11.5-15.5) % Plt Count 147 L (150-450) k/uL Lymphocytes # (1.0-4.8) k/uL Macrocytosis APTT (22.0-30.0) sec POC Glucose (mg/dL) 201 H (75-99) mg/dL Troponin I (0.000-0.034) ng/mL Triglycerides 167 H (<150) mg/dL HDL Cholesterol 31 L (40-60) mg/dL 01/22/19 01/22/19 Range/Units 05:58 06:15 RBC (3.80-5.40) m/uL Hgb (11.4-16.0) gm/dL Hct (34.0-46.0) % MCV (80.0-100.0) fL RDW (11.5-15.5) % Plt Count (150-450) k/uL Lymphocytes # (1.0-4.8) k/uL Macrocytosis APTT 43.0 H (22.0-30.0) sec POC Glucose (mg/dL) 176 H (75-99) mg/dL Troponin I (0.000-0.034) ng/mL Triglycerides (<150) mg/dL HDL Cholesterol (40-60) mg/dL Assessment and Plan Assessment: 1. Atrial fibrillation with rapid ventricular response. 2. Elevated troponin which could represent non-ST elevation ND versus demand mismatch ischemia. 3. New onset chest pain. 4. Morbid obesity. 5. Diabetes mellitus type 2 insulin-dependent. 6. Hypertension. 7. Coronary artery disease status post stenting in the late . 8. Breast cancer status post bilateral mastectomy on anastrozole therapy. 9. Fibromyalgia. 10. Hyperlipidemia. 11. Anxiety and depression. 12. Hypothyroidism. Cardiac catheterization revealed RCA stenosis, stent was placed by cardiology, plan discussed with cardiology to continue aspirin and Plavix, continue cardioprotective medication, decision for anticoagulation at this point to be continued and we will monitor hemoglobin closely as it dropped from 9-7.9 and this could be dilutional effect as patient is asymptomatic without obvious source for bleed. If hemoglobin drops further will initiate workup for bleeding including GI bleed and possible EGD and colonoscopy. We'll continue current diabetes regimen and goal glucose less than 180 during this hospital stay. Prognosis is fair
[2019-01-22 11:24] VITALS: BMI 49.4
[2019-01-22 11:42] LABS: Glucose,Whole Blood 176 mg/dL (75-99)
--- NOTE | 2019-01-22 12:10 | ECHOF ---
Referral Reason:LVF MEASUREMENTS -------- HEIGHT: 157.5 cm WEIGHT: 117.0 kg BP: RVIDd: 4.2 cm (< 3.3) IVSd: 1.2 cm (0.6 - 1.1) LVIDd: 4.4 cm (3.9 - 5.3) LVPWd: 1.6 cm (0.6 - 1.1) IVSs: 1.8 cm LVIDs: 3.2 cm LVPWs: 1.9 cm LA Diam: 4.4 cm (2.7 - 3.8) LAESV Index (A-L): 28.52 ml/m Ao Diam: 2.2 cm (2.0 - 3.7) AV Cusp: 1.0 cm (1.5 - 2.6) LA Diam: 4.6 cm (2.7 - 3.8) MV EXCURSION: 27.332 mm (> 18.000) MV EF SLOPE: 82 mm/s (70 - 150) EPSS: 0.3 cm MV E Vahid: 0.95 m/s MV DecT: 162 ms MV A Vahid: 0.62 m/s MV E/A Ratio: 1.53 AV maxP.28 mmHg AV meanP.11 mmHg RAP: 5.00 mmHg RVSP: 42.49 mmHg FINDINGS -------- Sinus rhythm. This was a technically adequate study. The left ventricular size is normal. There is moderate concentric left ventricular hypertrophy. O verall left ventricular systolic function is low-normal with, an EF between 50 - 55 %. The right ventricle is normal in size. The left atrium is mildly dilated. LA is midly dilated 29-33ml/m2. The right atrial size is normal. There is moderate aortic stenosis present. Peak/mean gradient across the Aortic Valve is 34.28mmHg / 18.11mmHg. Mild mitral annular calcification present. Mild mitral regurgitation is present. Mild tricuspid regurgitation present. There is mild pulmonary hypertension. The right ventricular systolic pressure, as measured by Doppler, is 42.49mmHg. There is no pulmonic regurgitation present. The aortic root size is normal. There is no pericardial effusion. CONCLUSIONS -------- 1. Sinus rhythm. 2. This was a technically adequate study. 3. The left ventricular size is normal. 4. There is moderate concentric left ventricular hypertrophy. 5. Overall left ventricular systolic function is low-normal with, an EF between 50 - 55 %. 6. The right ventricle is normal in size. 7. The left atrium is mildly dilated. 8. LA is midly dilated 29-33ml/m2. 9. The right atrial size is normal. 10. There is moderate aortic stenosis present. 11. Peak/mean gradient across the Aortic Valve is 34.28mmHg / 18.11mmHg. 12. Mild mitral annular calcification present. 13. Mild mitral regurgitation is present. 14. Mild tricuspid regurgitation present. 15. There is mild pulmonary hypertension. 16. The right ventricular systolic pressure, as measured by Doppler, is 42.49mmHg. 17. There is no pulmonic regurgitation present. 18. The aortic root size is normal. 19. There is no pericardial effusion. VOICE OVER ANNOUNCER: Pily Cho RDCS
[2019-01-22] MEDS: FUROSEMIDE 20 MG TAB PO SCH (16:14)
[2019-01-22] MEDS: POTASSIUM CHLORIDE ER 10 MEQ TAB.ER.PRT PO SCH (17:06)
[2019-01-22 17:16] LABS: Glucose,Whole Blood 163 mg/dL (75-99)
[2019-01-22 20:20] LABS: Glucose,Whole Blood 174 mg/dL (75-99)
[2019-01-22] MEDS: ATORVASTATIN 80 MG TAB PO SCH (20:32)
[2019-01-22] MEDS: VENLAFAXINE HCL ER 75 MG CAP PO SCH (20:32)
[2019-01-22] MEDS ORDERED: ATORVASTATIN 40 MG TAB PO SCH (21:00)
[2019-01-23] MEDS: LEVOTHYROXINE 100 MCG TAB PO SCH (05:51)
[2019-01-23] MEDS: LEVOTHYROXINE 75 MCG TAB PO SCH (05:51)
[2019-01-23] MEDS: GABAPENTIN 300 MG CAP PO SCH ×4 (05:52→20:57)
[2019-01-23 06:39] LABS: Anisocytosis Slight; Basophils % (A) 0 %; Eosinophils # (A) 0.2 k/uL (0-0.7); Eosinophils % (A) 3 %; HCT 24.7 % (34.0-46.0); HGB 8.1 gm/dL (11.4-16.0); Hypochromasia Slight; Lymphocytes % (A) 15 %; MCHC 32.6 g/dL (31.0-37.0); MCV 101.4 fL (80.0-100.0); Macrocytosis Slight; Mean Platelet Volume 5.9; Monocytes # (A) 0.7 k/uL (0-1.0); Monocytes % (A) 10 %; Neutrophils # (A) 4.6 k/uL (1.3-7.7); Neutrophils % (A) 69 %; Platelet Count 146 k/uL (150-450); Poikilocytosis Slight; RBC 2.44 m/uL (3.80-5.40); RDW 16.2 % (11.5-15.5); WBC 6.7 k/uL (3.8-10.6)
[2019-01-23 06:43] LABS: Glucose,Whole Blood 145 mg/dL (75-99)
[2019-01-23] MEDS: INSULIN DETEMIR (LEVEMIR) 100 UNIT/ML SYR SQ SCH ×2 (06:49→21:22)
[2019-01-23] MEDS: INSULIN ASPART (NovoLOG) 100 UNIT/ML VIAL SQ SCH ×4 (06:49→21:21)
[2019-01-23] MEDS: VENLAFAXINE HCL ER 150 MG CAP PO SCH (08:06)
[2019-01-23] MEDS: METOPROLOL TARTRATE 50 MG TAB PO SCH ×2 (08:06→20:57)
[2019-01-23] MEDS: LISINOPRIL 5 MG TAB PO SCH (08:07)
[2019-01-23] MEDS: AMIODARONE 200 MG TAB PO SCH ×3 (08:07→20:57)
[2019-01-23] MEDS: SPIRONOLACTONE 25 MG TAB PO SCH (08:07)
[2019-01-23] MEDS: ANASTROZOLE 1 MG TAB PO SCH (08:07)
[2019-01-23] MEDS: FUROSEMIDE 40 MG TAB PO SCH (08:07)
[2019-01-23] MEDS: traMADol 50 MG TAB PO PRN ×2 (08:12→14:16)
[2019-01-23] MEDS: ASPIRIN 81 MG PO SCH (08:12)
--- NOTE | 2019-01-23 10:41 | P.PN ---
Subjective Progress Note Date: 01/23/19 This is a 73-year-old female patient of Dr. Mcwilliams with past medical history of coronary artery disease with stents previously done at [facility], diabetes mellitus, hypertension, hypothyroidism with history of Sindhu's, breast cancer. Presented to the hospital with a non-ST elevation myocardial infarction. On presentation here patient was found to be in atrial fibrillation with a rapid rate, was initiated on a Cardizem and subsequently amiodarone drip. She did convert to normal sinus rhythm. He was taken to the cardiac catheterization lab yesterday where she underwent angioplasty and stenting of the right coronary artery. I pressure this morning 130/60 with a heart rate of 80-90, 97% on room air. White blood cell count 6.7, hemoglobin 8.1, platelet count 146. Creatinine this morning 0.8. This morning patient is in a normal sinus rhythm. Overall she feels well, she does state that when she gets up and walks around she has some shortness of breath. Echocardiogram with Doppler study revealed an ejection fraction of 50-55% with moderate aortic stenosis. Patient is currently on amiodarone 200 mg one tablet by mouth 3 times a day, aspirin 325 mg daily which we will decrease to 81 mg daily, Lipitor 80 mg daily, Plavix 75 mg daily, Lasix 40 mg daily in the morning and 20 mg at supper daily, Lisinopril 5 mg daily, metoprolol 50 mg one tablet by mouth twice a day, Aldactone 25 mg daily. Objective - Vital Signs Vital signs: Vital Signs Temp 97.2 F L 01/23/19 08:00 Pulse 98 01/23/19 08:00 Resp 16 01/23/19 08:00 BP 130/58 01/23/19 08:00 Pulse Ox 97 01/23/19 08:00 Intake & Output 01/22/19 01/23/19 01/23/19 18:59 06:59 18:59 Intake Total 1150 1010 Output Total 1850 1100 Balance -700 -1100 1010 Weight 122.7 kg 125.6 kg Intake: IV 190 Intake, IV Titration 300 Amount Sodium Chloride 0.9% 1, 300 000 ml @ 75 mls/hr IV . [id number] [facility] Rx#:[id number] Oral 660 1010 Output: Urine 1850 1100 Other: Voiding Method Indwelling Catheter Toilet Toilet # Voids 1 1 - Exam Gen: This is a a morbidly obese female. Patient is resting comfort ably and appears to be in no acute distress. HEENT: Head is atraumatic, normocephalic. Pupils equal, round. Sclerae is anicteric. NECK: Supple. No JVD. No lymphadenopathy. No thyromegaly. LUNGS: Clear to auscultation. No wheezes or rhonchi. No intercostal retractions. HEART: Regular rate and rhythm. No murmur. ABDOMEN: Soft. Bowel sounds are present. No masses. No tenderness. Teixeira catheter in place. EXTREMITIES: 1+ bilateral pedal edema. No calf tenderness. NEUROLOGICAL: Patient is awake, alert and oriented x3. Cranial nerves 2 through 12 are grossly intact. - Labs CBC & Chem 7: 01/23/19 05:46 01/23/19 05:46 Labs: Abnormal Lab Results - Last 24 Hours (Table) 01/22/19 01/22/19 01/22/19 Range/Units 11:30 16:37 20:19 RBC (3.80-5.40) m/uL Hgb (11.4-16.0) gm/dL Hct (34.0-46.0) % MCV (80.0-100.0) fL RDW (11.5-15.5) % Plt Count (150-450) k/uL POC Glucose (mg/dL) 176 H 163 H 174 H (75-99) mg/dL 01/23/19 01/23/19 Range/Units 05:46 06:41 RBC 2.44 L (3.80-5.40) m/uL Hgb 8.1 L (11.4-16.0) gm/dL Hct 24.7 L (34.0-46.0) % MCV 101.4 H (80.0-100.0) fL RDW 16.2 H (11.5-15.5) % Plt Count 146 L (150-450) k/uL POC Glucose (mg/dL) 145 H (75-99) mg/dL Assessment and Plan Plan: Assessment and Plan: #1 New onset A. fib with RVR, probable paroxysmal atrial fibrillation #2 Non-ST elevated myocardial infarction, status post RCA stent #3 History of coronary artery disease with 4 stents and last heart catheterization in 1997 at [facility] #4 Diabetes mellitus type 2. #5 Hypertension #6 Hypothyroidism #7 History of breast cancer #8 Hyperlipidemi Plan We'll continue this patient on her current medications. She will need to be initiated on anticoagulation for stroke prevention. We will check into coverage for Eliquis, the patient on Eliquis along with the baby aspirin and Plavix, discontinue aspirin after one month. DNP note has been reviewed, I agree with a documented findings and plan of care. Patient was seen and examined.
[2019-01-23] MEDS: APIXABAN 5 MG TAB PO SCH ×2 (11:03→20:57)
[2019-01-23] MEDS: CLOPIDOGREL 75 MG TAB PO SCH (11:03)
[2019-01-23] MEDS ORDERED: SODIUM FERRIC GLUCONAT-SUCROSE 125 MG in SODIUM CHLORIDE 0.9% 100 ML IVPB ONE (12:00)
[2019-01-23 12:01] LABS: Glucose,Whole Blood 178 mg/dL (75-99)
--- NOTE | 2019-01-23 13:03 | XR ---
EXAMINATION TYPE: XR chest 2V DATE OF EXAM: 01/23/2019 COMPARISON: Prior chest x-ray 01/20/2019 HISTORY: Congestive heart failure TECHNIQUE: Frontal and lateral views of the chest are obtained. FINDINGS: There is no focal air space opacity, pleural effusion, or pneumothorax seen. The cardiac silhouette size is stable accounting for differences in technique, enlarged. There are surgical cli ps present over the left breast region, right axilla. The osseous structures are intact. IMPRESSION: No acute cardiopulmonary process. Enlarged heart, postop changes.
--- NOTE | 2019-01-23 13:33 | P.PN ---
Subjective Progress Note Date: 01/23/19 This is 73 years old female with past medical history significant for coronary artery disease presents to the emergency department with new onset chest pain. Patient described it as tightness to the mediastinal area radiating to her lower jaw and bilateral neck with some radiation to the left shoulder. Patient never experienced this pain before and stated that she had cardiac catheterization back in late where she received 4 stents and was placed on aspirin and Plavix for 2 years later Plavix was discontinued after 2 years and patient continue taking her aspirin on daily basis. Her pain in the emergency room responded to nitroglycerin. Patient was found to have tachycardia EKG showed a new onset atrial fibrillation with heart rate 150s. Patient was started on amiodarone drip, heparin drip and cardiology consult was obtained. First troponin was slightly elevated and the second troponin came up high to 1.1 with EKG changes showing atrial fibrillation with rapid ventricular response heart rate [address] depression on inferior leads 23 and aVF with reciprocal changes on V4 V5 and V6 but again patient was tachycardic at that time. Cardiology consult was obtained and have not seen the patient. Patient stated that her diabetes has been fairly controlled with values less than 200 all the time and taking Lantus 55 units twice daily along with fair units with meals plus the sli ding scale. Patient is morbidly obese have been maintaining her medication and doctors follow-up accurately and stated that she's been taking her medication as prescribed continue to take her aspirin and daily basis and stated that her family history is significant for mother with pacemaker, father with heart disease and age 72 of myocardial infarction, daughter who is diagnosed with coronary artery disease and multiple stents. Patient currently is pain-free denying recent upper respiratory symptoms, fever, night sweats, productive cough or dysuria. 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 Patient had a history of right breast cancer and received bilateral mastectomy due to large size of breast on the left as well and that was causing patient's back pain and shoulder pain. All lymph nodes resected at that time on the right side that showed negative metastasis and patient did not receive any chemo or radiation after surgery but was maintained on anastrozole since 2008 and has been following up with her oncologist outpatient 01/22: Patient continued to be hemodynamically stable, heart rate seems to be under better control, patient is denying chest pain shortness breath nausea vomiting abdominal pain dizziness lightheadedness or blurry vision 01/23: Patient underwent cardiac catheterizationwithangioplasty and stenting of the right coronary artery. echocardiogram revealed EF of 50-55% with moderate aortic stenosis. Patient is complaining of some mild dyspnea with activity.pulse ox is 96% on room air, afebrile, heart rate 75, blood pressure 117/71.hemoglobin is 8.1. Blood sugars running between 145 and 178. We'll plan to obtain ambulating pulse ox, repeat a chest x-ray in one [facility] infusion, monitor overnight and plan for discharge home tomorrow. Objective - Vital Signs Vital signs: Vital Signs Temp 97.1 F L 01/23/19 12:00 Pulse 98 01/23/19 12:00 Resp 16 01/23/19 12:00 BP 117/71 01/23/19 12:00 Pulse Ox 96 01/23/19 12:00 Intake & Output 01/22/19 01/23/19 01/23/19 18:59 06:59 18:59 Intake Total 1150 1250 Output Total 1850 1100 Balance -700 -1100 1250 Weight 122.7 kg 125.6 kg Intake: IV 190 Intake, IV Titration 300 Amount Sodium Chloride 0.9% 1, 300 000 ml @ 75 mls/hr IV . [id number] Rx#:[id number] Oral 660 1250 Output: Urine 1850 1100 Other: Voiding Method Indwelling Catheter Toilet Toilet # Voids 1 1 - Exam Review Of Systems: Constitutional: No fever, no chills, no night sweats. No weight change. No weakness, fatigue or lethargy. No daytime sleepiness. EENT: No headache. No blurred vision or double vision, no loss of vision. No loss of Hearing, no ringing in the ears, no dizziness. No nasal drainage or congestion. No epistaxis. No sore throat. Lungs: reports mild shortness of breath, cough, no sputum production. No wheezing. Cardiovascular: No chest pain, no lower extremity edema. No palpitations. No paroxysmal nocturnal dyspnea. No orthopnea. No lightheadedness or dizziness. No syncopal episodes. Abdominal: No abdominal pain. No nausea, vomiting. No diarrhea. No constipation. No bloody or tarry stools.. No loss of appetite. Genitourinary: No dysuria, increased frequency, urgency. No urinary retention. Musculoskeletal: No myalgias. No muscle weakness, no gait dysfunction, no frequent falls. No back pain. No neck pain. Integumentary: No wounds, no lesions. No rash or pruritus. No unusual bruising. No change in hair or nails. Neurologic: No aphasia. No facial droop. No change in mentation. No head injury. No headache. No paralysis. No paresthesia. Psychiatric: No depression. No anxiety. No mood swings. Endocrine: No abnormal blood sugars. No weight change. No excessive sweating or thirst. No cold intolerance. Gen: This is a morbidly obese 73-year-old female. She is sitting on the edge of the bed with mild dyspnea. HEENT: Head is atraumatic, normocephalic. Pupils equal, round. Sclerae is anicteric. NECK: Supple. No JVD. No lymphadenopathy. No thyromegaly. LUNGS: Clear to auscultation. No wheezes or rhonchi. No intercostal retractions. HEART: Regular rate and rhythm. No murmur. ABDOMEN: Soft. Bowel sounds are present. No masses. No tenderness. EXTREMITIES: 1+ pedal edema. No calf tenderness. NEUROLOGICAL: Patient is awake, alert and oriented x3. Cranial nerves 2 through 12 are grossly intact. - Labs CBC & Chem 7: 01/23/19 05:46 01/23/19 05:46 Labs: Abnormal Lab Results - Last 24 Hours (Table) 01/22/19 01/22/19 01/23/19 Range/Units 16:37 20:19 05:46 RBC 2.44 L (3.80-5.40) m/uL Hgb 8.1 L (11.4-16.0) gm/dL Hct 24.7 L (34.0-46.0) % MCV 101.4 H (80.0-100.0) fL RDW 16.2 H (11.5-15.5) % Plt Count 146 L (150-450) k/uL POC Glucose (mg/dL) 163 H 174 H (75-99) mg/dL 01/23/19 01/23/19 Range/Units 06:41 11:34 RBC (3.80-5.40) m/uL Hgb (11.4-16.0) gm/dL Hct (34.0-46.0) % MCV (80.0-100.0) fL RDW (11.5-15.5) % Plt Count (150-450) k/uL POC Glucose (mg/dL) 145 H 178 H (75-99) mg/dL Assessment and Plan Plan: 1. new onset A. fib with RVR, probable paroxysmal atrial fibrillation. cardiology consult appreciated. Continue amiodarone 200 mg 3 times daily, eliquis 5 mg twice daily, Lopressor 50 mg twice daily. 2. Non-ST elevation PR status post heart catheterization and stent RCA. Continue aspirin 81 mg daily, Plavix 75 mg daily, Lopressor, Aldactone 3. history of coronary artery disease with 4 stents. 4. Morbid obesitywith BMI of 50. 5. Diabetes mellitus type 2 insulin-dependent.continue Levemir 55 units twice daily and NovoLog scale. 6. Hypertension.continue lisinopril 7. Hypothyroidism.continue levothyroxine 200 g daily 8. Breast cancer status post bilateral mastectomy on anastrozole therapy. 9. Fibromyalgia. 10. Hyperlipidemia. 11. generalized anxiety disorder and recurrent depression. 12. anemia of chronic disease. One dose of Ferrlecit infusion today. discharge plan: Home on Wednesday Impression and plan of care have been directed as dictated by the signing physician. Abril Riley nurse practitioner acting as scribe for signing physician.
[2019-01-23] MEDS ORDERED: FUROSEMIDE 10 MG/ML 4 ML VIAL IV STA (14:30)
[2019-01-23] MEDS: DOCUSATE 100 MG CAP PO SCH (14:43)
[2019-01-23 16:22] LABS: Glucose,Whole Blood 183 mg/dL (75-99)
[2019-01-23] MEDS: POTASSIUM CHLORIDE ER 10 MEQ TAB.ER.PRT PO SCH (16:53)
[2019-01-23] MEDS: FUROSEMIDE 20 MG TAB PO SCH (16:53)
[2019-01-23] MEDS: ATORVASTATIN 80 MG TAB PO SCH (20:57)
[2019-01-23] MEDS: VENLAFAXINE HCL ER 75 MG CAP PO SCH (20:57)
[2019-01-23 21:14] LABS: Glucose,Whole Blood 171 mg/dL (75-99)
[2019-01-24 05:57] LABS: Anisocytosis Slight; HCT 26.3 % (34.0-46.0); HGB 8.3 gm/dL (11.4-16.0); Hypochromasia Marked; MCH 33.3 pg (25.0-35.0); MCHC 31.5 g/dL (31.0-37.0); MCV 105.7 fL (80.0-100.0); Macrocytosis Moderate; Mean Platelet Volume 5.9; Platelet Count 132 k/uL (150-450); Poikilocytosis Slight; RBC 2.49 m/uL (3.80-5.40); RDW 16.2 % (11.5-15.5); WBC 6.4 k/uL (3.8-10.6)
[2019-01-24] MEDS: LEVOTHYROXINE 75 MCG TAB PO SCH (06:08)
[2019-01-24] MEDS: LEVOTHYROXINE 100 MCG TAB PO SCH (06:09)
[2019-01-24] MEDS: GABAPENTIN 300 MG CAP PO SCH ×2 (06:09→11:20)
[2019-01-24 06:41] LABS: Glucose,Whole Blood 122 mg/dL (75-99)
[2019-01-24] MEDS: INSULIN ASPART (NovoLOG) 100 UNIT/ML VIAL SQ SCH ×2 (06:43→13:10)
[2019-01-24] MEDS: INSULIN DETEMIR (LEVEMIR) 100 UNIT/ML SYR SQ SCH (06:44)
[2019-01-24 06:47] LABS: Basophils # (M) 0.06 k/uL (0-0.2); Eosinophils # (M) 0.45 k/uL (0-0.7); Lymphocytes # (M) 2.11 k/uL (1.0-4.8); Monocytes # (M) 0.77 k/uL (0-1.0); Neutrophils % (M) 47 %; Nucleated Red Blood Cells 0 /100 WBC (0-0); Total Cells Counted 100
[2019-01-24] MEDS: FUROSEMIDE 40 MG TAB PO SCH (09:11)
[2019-01-24] MEDS: METOPROLOL TARTRATE 50 MG TAB PO SCH (09:11)
[2019-01-24] MEDS: CLOPIDOGREL 75 MG TAB PO SCH (09:11)
[2019-01-24] MEDS: SPIRONOLACTONE 25 MG TAB PO SCH (09:11)
[2019-01-24] MEDS: ASPIRIN 81 MG PO SCH (09:11)
[2019-01-24] MEDS: APIXABAN 5 MG TAB PO SCH (09:11)
[2019-01-24] MEDS: AMIODARONE 200 MG TAB PO SCH (09:11)
[2019-01-24] MEDS: VENLAFAXINE HCL ER 150 MG CAP PO SCH (09:11)
[2019-01-24] MEDS: LISINOPRIL 5 MG TAB PO SCH (09:12)
[2019-01-24] MEDS: DOCUSATE 100 MG CAP PO SCH (09:12)
[2019-01-24] MEDS: ANASTROZOLE 1 MG TAB PO SCH (09:12)
[2019-01-24 09:16] VITALS: RESP 16; TEMP 97.7
--- NOTE | 2019-01-24 11:21 | P.DS ---
Providers Date of admission: 01/21/19 10:49 Expected date of discharge: 01/24/19 Attending physician: Vladimir Ivey Consults: 01/21/19 01:40 Consult Physician Routine Consulting Provider: Ron Pretty Consult Reason/Comments: Atrial fibrillation with rapid ventricular rate Do you want consulting provider notified?: Yes 01/22/19 10:44 Consult Physician Routine Consulting Provider: [facility] Consult Reason/Comments: Post Interventional patient Do you want consulting provider notified?: Already Contacted Primary care physician: Stated None Hospital Course: This is 73 years old female with past medical history significant for coronary artery disease presents to the emergency department with new onset chest pain. Patient described it as tightness to the mediastinal area radiating to her lower jaw and bilateral neck with some radiation to the left shoulder. Patient never experienced this pain before and stated that she had cardiac catheterization back in late where she received 4 stents and was placed on aspirin and Plavix for 2 years later Plavix was discontinued after 2 years and patient continue taking her aspirin on daily basis. Her pain in the emergency room responded to nitroglycerin. Patient was found to have tachycardia EKG showed a new onset atrial fibrillation with heart rate 150s. Patient was started on amiodarone drip, heparin drip and cardiology consult was obtained. First troponin was slightly elevated and the second troponin came up high to 1.1 with EKG changes showing atrial fibrillation with rapid ventricular response heart rate [address] depression on inferior leads 23 and aVF with reciprocal changes on V4 V5 and V6 but again patient was tachycardic at that time. Cardiology consult was obtained and have not seen the patient. Patient stated that her diabetes has been fairly controlled with values less than 200 all the time and taking Lantus 55 units twice daily along with fair units with meals plus the sliding scale. Patient is morbidly obese have been maintaining her medication and doctors follow-up accurately and stated that she's been taking her medication as prescribed continue to take her aspirin and daily basis and stated that her family history is significant for mother with pacemaker, father with heart disease and age 72 of myocardial infarction, daughter who is diagnosed with coronary artery disease and multiple stents. Patient currently is pain-free denying recent upper respiratory symptoms, fever, night sweats, productive cough or dysuria. 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 Patient had a history of right breast cancer and received bilateral mastectomy due to large size of breast on the left as well and that was causing patient's back pain and shoulder pain. All lymph nodes resected at that time on the right side that showed negative metastasis and patient did not receive any chemo or radiation after surgery but was maintained on anastrozole since 2008 and has been following up with her oncologist outpatient 01/22: Patient continued to be hemodynamically stable, heart rate seems to be under better control, patient is denying chest pain shortness breath nausea vomiting abdominal pain dizziness lightheadedness or blurry vision 01/23: Patient underwent cardiac catheterizationwithangioplasty and stenting of the right coronary artery. echocardiogram revealed EF of 50-55% with moderate aortic stenosis. Patient is complaining of some mild dyspnea with activity.pulse ox is 96% on room air, afebrile, heart rate 75, blood pressure 117/71.hemoglobin is 8.1. Blood sugars running between 145 and 178. We'll plan to obtain ambulating pulse ox, repeat a chest x-ray in one Ferrlecit infusion, monitor overnight and plan for discharge home tomorrow. 01/24: Chest x-ray was normal. She received her dose of Ferrlecit. Patient states that she has been on metformin for greater than 5 years and we have instructed her to take vitamin B12. MCV is elevated of unclear etiology. Pulse ox is 90% on room air. Respiratory status is stable. Cardiology did clear the patient for discharge. We will discharge patient today in stable condition. Discharge diagnoses: 1. new onset A. fib with RVR, probable paroxysmal atrial fibrillation. cardiology consult appreciated. Continue amiodarone 200 mg 3 times daily, eliquis 5 mg twice daily, Lopressor 50 mg twice daily. 2. Non-ST elevation AR status post heart catheterization and stent RCA. Continue aspirin 81 mg daily, Plavix 75 mg daily, Lopressor, Aldactone 3. history of coronary artery disease with 4 stents. 4. Morbid obesitywith BMI of 50. 5. Diabetes mellitus type 2 insulin-dependent.continue Levemir 55 units twice daily and NovoLog scale. 6. Hypertension.continue lisinopril 7. Hypothyroidism.continue levothyroxine 200 g daily 8. Breast cancer status post bilateral mastectomy on anastrozole therapy. 9. Fibromyalgia. 10. Hyperlipidemia. 11. generalized anxiety disorder and recurrent depression. 12. anemia of chronic disease. One dose of Ferrlecit infusion today. discharge plan: Home on Wednesday Impression and plan of care have been directed as dictated by the signing physician. Abril Riley nurse practitioner acting as scribe for signing physician. Patient Condition at Discharge: Good Plan - Discharge Summary Discharge Rx Participant: No New Discharge Prescriptions: New Cyanocobalamin [Vitamin B-12] 500 mcg PO DAILY #30 tablet Aspirin 81 mg PO DAILY chew Amiodarone [Cordarone] 200 mg PO TID #90 tab Apixaban [Eliquis] 5 mg PO BID #60 tab Atorvastatin [Lipitor] 80 mg PO HS #30 tab Nitroglycerin Sl Tabs [Nitrostat] 0.4 mg SUBLINGUAL Q5M PRN #25 tab PRN Reason: Chest Pain Clopidogrel [Plavix] 75 mg PO DAILY #30 tab Continue Anastrozole [Arimidex] 1 mg PO DAILY Insulin Detemir (Levemir) [Levemir] 55 unit SQ BID Spironolactone [Aldactone] 25 mg PO DAILY metFORMIN HCL 1,000 mg PO BID Metoprolol Tartrate [Lopressor] 50 mg PO BID Insulin Lispro [humaLOG Kwikpen] See Protocol SQ AC-TID Furosemide [Lasix] 40 mg PO DAILY@0800 Furosemide [Lasix] 20 mg PO W/SUPPER Venlafaxine HCl [Effexor XR] 150 mg PO DAILY Venlafaxine HCl [Effexor XR] 75 mg PO HS Potassium Gluconate 99 mg PO W/SUPPER Melatonin 3 mg PO HS traMADol HCL 50 mg PO TID PRN PRN Reason: Spasms Lisinopril [Zestril] 5 mg PO DAILY Levothyroxine Sodium [Synthroid] 75 mcg PO DAILY Gabapentin 600 mg PO QID Levothyroxine Sodium [Synthroid] 200 mcg PO DAILY Dulaglutide [Trulicity] 1.5 mg SQ TH Magnesium Chloride [Slow-Mag] 64 mg PO W/SUPPER Discharge Medication List Anastrozole [Arimidex] 1 mg PO DAILY 01/01/14 [History] Insulin Detemir (Levemir) [Levemir] 55 unit SQ BID 01/01/14 [History] Spironolactone [Aldactone] 25 mg PO DAILY 01/01/14 [History] metFORMIN HCL 1,000 mg PO BID 01/01/14 [History] Dulaglutide [Trulicity] 1.5 mg SQ TH 01/20/19 [History] Furosemide [Lasix] 20 mg PO W/SUPPER 01/20/19 [History] Furosemide [Lasix] 40 mg PO DAILY@0800 01/20/19 [History] Gabapentin 600 mg PO QID 01/20/19 [History] Insulin Lispro [humaLOG Kwikpen] See Protocol SQ AC-TID 01/20/19 [History] Levothyroxine Sodium [Synthroid] 75 mcg PO DAILY 01/20/19 [History] Levothyroxine Sodium [Synthroid] 200 mcg PO DAILY 01/20/19 [History] Lisinopril [Zestril] 5 mg PO DAILY 01/20/19 [History] Magnesium Chloride [Slow-Mag] 64 mg PO W/SUPPER 01/20/19 [History] Melatonin 3 mg PO HS 01/20/19 [History] Metoprolol Tartrate [Lopressor] 50 mg PO BID 01/20/19 [History] Potassium Gluconate 99 mg PO W/SUPPER 01/20/19 [History] Venlafaxine HCl [Effexor XR] 75 mg PO HS 01/20/19 [History] Venlafaxine HCl [Effexor XR] 150 mg PO DAILY 01/20/19 [History] traMADol HCL 50 mg PO TID PRN 01/20/19 [History] Amiodarone [Cordarone] 200 mg PO TID #90 tab 01/24/19 [Rx] Apixaban [Eliquis] 5 mg PO BID #60 tab 01/24/19 [Rx] Aspirin 81 mg PO DAILY chew 01/24/19 [Rx] Atorvastatin [Lipitor] 80 mg PO HS #30 tab 01/24/19 [Rx] Clopidogrel [Plavix] 75 mg PO DAILY #30 tab 01/24/19 [Rx] Cyanocobalamin [Vitamin B-12] 500 mcg PO DAILY #30 tablet 01/24/19 [Rx] Nitroglycerin Sl Tabs [Nitrostat] 0.4 mg SUBLINGUAL Q5M PRN #25 tab 01/24/19 [Rx] Follow up Appointment(s)/Referral(s): Jaxon Palacios MD [REFERRING] - 02/01/19 10:00 am (Wednesday) Rosalva Mcwilliams MD [STAFF PHYSICIAN] - 01/30/19 8:30 am (Wednesday) Patient Instructions/Handouts: *Surgery [facility] - After Heart Catheterization - Clerical Grader Instructions, A-fib (Atrial Fibrillation) (DC), Heart Healthy Diet (DC), Safe Use of Anticoagulants (DC), Coronary Intravascular Stent Placement (DC) Activity/Diet/Wound Care/Special Instructions: Sergio copay $118.78, patient has deductible to meet. Coupon given to daughter for 30 days free, medication faxed to [facility]. Discharge Disposition: HOME SELF-CARE
--- NOTE | 2019-01-24 11:22 | P.PN ---
Subjective Progress Note Date: 01/24/19 This is a 73-year-old female patient of Dr. Mcwilliams with past medical history of coronary artery disease with stents previously done at [facility], diabetes mellitus, hypertension, hypothyroidism with history of Sindhu's, breast cancer. Presented to the hospital with a non-ST elevation myocardial infarction. On presentation here patient was found to be in atrial fibrillation with a rapid rate, was initiated on a Cardizem and subsequently amiodarone drip. She did convert to normal sinus rhythm. He was taken to the cardiac catheterization lab yesterday where she underwent angioplasty and stenting of the right coronary artery. I pressure this morning 130/60 with a heart rate of 80-90, 97% on room air. White blood cell count 6.7, hemoglobin 8.1, platelet count 146. Creatinine this morning 0.8. This morning patient is in a normal sinus rhythm. Overall she feels well, she does state that when she gets up and walks around she has some shortness of breath. Echocardiogram with Doppler study revealed an ejection fraction of 50-55% with moderate aortic stenosis. Patient is currently on amiodarone 200 mg one tablet by mouth 3 times a day, aspirin 325 mg daily which we will decrease to 81 mg daily, Lipitor 80 mg daily, Plavix 75 mg daily, Lasix 40 mg daily in the morning and 20 mg at supper daily, Lisinopril 5 mg daily, metoprolol 50 mg one tablet by mouth twice a day, Aldactone 25 mg daily. 01/24/2019 Patient seen and examined this morning, she feels well, her breathing is improved today. Chest x-ray Performed yesterday did not reveal any significant findings. Blood pressure 140/60 with a heart rate in the 70s, 95% on room air. White blood cell count 6.4, hemoglobin 8.3, platelet count 132. Objective - Vital Signs Vital signs: Vital Signs Temp 97.7 F 01/24/19 09:00 Pulse 86 01/24/19 09:00 Resp 16 01/24/19 09:00 BP 161/69 01/24/19 09:00 Pulse Ox 96 01/24/19 09:00 Intake & Output 01/23/19 01/24/19 01/24/19 18:59 06:59 18:59 Intake Total 2470 360 Balance 2470 360 Weight 123.5 kg Intake: Intake, IV Titration 100 Amount Sodium Ferric Gluconat- 100 Sucrose 125 mg In Sodium Chloride 0.9% 100 ml @ 100 mls/hr IVPB ONCE ONE Rx#:[id number] Oral 2321 360 Other: Voiding Method Toilet Toilet Toilet # Voids 1 1 - Exam Gen: This is a a morbidly obese female. Patient is resting comfortably and appears to be in no acute distress. HEENT: Head is atraumatic, normocephalic. Pupils equal, round. Sclerae is anicteric. NECK: Supple. No JVD. No lymphadenopathy. No thyromegaly. LUNGS: Clear to auscultation. No wheezes or rhonchi. No intercostal retractions. HEART: Regular rate and rhythm. No murmur. ABDOMEN: Soft. Bowel sounds are present. No masses. No tenderness. Teixeira catheter in place. EXTREMITIES: 1+ bilateral pedal edema. No calf tenderness. NEUROLOGICAL: Patient is awake, alert and oriented x3. Cranial nerves 2 through 12 are grossly intact. - Labs CBC & Chem 7: 01/24/19 05:31 01/23/19 05:46 Labs: Abnormal Lab Results - Last 24 Hours (Table) 01/23/19 01/23/19 01/23/19 Range/Units 11:34 16:19 21:13 RBC (3.80-5.40) m/uL Hgb (11.4-16.0) gm/dL Hct (34.0-46.0) % MCV (80.0-100.0) fL RDW (11.5-15.5) % Plt Count (150-450) k/uL POC Glucose (mg/dL) 178 H 183 H 171 H (75-99) mg/dL 01/24/19 01/24/19 Range/Units 05:31 06:39 RBC 2.49 L (3.80-5.40) m/uL Hgb 8.3 L (11.4-16.0) gm/dL Hct 26.3 L (34.0-46.0) % MCV 105.7 H (80.0-100.0) fL RDW 16.2 H (11.5-15.5) % Plt Count 132 L (150-450) k/uL POC Glucose (mg/dL) 122 H (75-99) mg/dL Assessment and Plan Plan: Assessment and Plan: #1 New onset A. fib with RVR, probable paroxysmal atrial fibrillation #2 Non-ST elevated myocardial infarction, status post RCA stent #3 History of coronary artery disease with 4 stents and last heart catheter ization in 1997 at [facility] #4 Diabetes mellitus type 2. #5 Hypertension #6 Hypothyroidism #7 History of breast cancer #8 Hyperlipidemi Plan We'll continue this patient on her current medications. Continue amiodarone 200 mg one tablet by mouth 3 times a day for one week, then decrease to a twice a day dose. Eliquis 5 mg one tablet by mouth twice a day, aspirin 81 mg daily, Lipitor 80 mg daily, Plavix 75 mg daily, Lasix 40 mg in the morning and 20 mg in the evening, Synthroid, lisinopril 5 mg daily, metoprolol 50 mg one tablet by mouth twice a day, K Dur 10 mEq daily, Aldactone 25 mg daily, sublingual nitroglycerin as needed for chest pain. After one month, the baby aspirin will be discontinued and the patient will continue on Eliquis and Plavix. DNP note has been reviewed, I agree with a documented findings and plan of care. Patient was seen and examined.
[2019-01-24 11:48] LABS: Glucose,Whole Blood 141 mg/dL (75-99)
[2019-01-24 13:10] VITALS: BP 123/57; PULSE 66
[2019-01-26] MEDS ORDERED: Dulaglutide [Trulicity] 1.5 MG SQ SCH (09:00)
== END 2019-01-24 13:58 | disposition home or self-care (01) | DRG 246 ==
LOC: EC 22:29 → 3SCARD 01-21 01:43 → OBSVTOIN 01-21 10:49 → 3SCARD 01-21 11:39
PROVIDERS: ADMIT Internal Medicine; ATTEND Internal Medicine
PROC: 027034Z Dilation of Coronary Artery, One Artery with Drug-eluting Intraluminal Device, Percutaneous Approach (ICD-10-PCS; principal; 2019-01-22 09:00)
PROC: 4A023N7 Measurement of Cardiac Sampling and Pressure, Left Heart, Percutaneous Approach (ICD-10-PCS; 2019-01-22 09:00)
DX: I48.0 Paroxysmal atrial fibrillation (principal); I21.4 Non-ST elevation (NSTEMI) myocardial infarction; F33.9 Major depressive disorder, recurrent, unspecified; Z68.43 Body mass index [BMI] 50.0-59.9, adult; E78.5 Hyperlipidemia, unspecified; E66.01 Morbid (severe) obesity due to excess calories; E06.3 Autoimmune thyroiditis; M79.7 Fibromyalgia; F41.1 Generalized anxiety disorder; I35.0 Nonrheumatic aortic (valve) stenosis; D63.8 Anemia in other chronic diseases classified elsewhere; I11.9 Hypertensive heart disease without heart failure; I25.10 Atherosclerotic heart disease of native coronary artery without angina pectoris; E11.9 Type 2 diabetes mellitus without complications; Z79.01 Long term (current) use of anticoagulants; Z79.4 Long term (current) use of insulin; Z79.82 Long term (current) use of aspirin; Z88.2 Allergy status to sulfonamides; Z88.8 Allergy status to other drugs, medicaments and biological substances; Z90.49 Acquired absence of other specified parts of digestive tract; Z87.891 Personal history of nicotine dependence; Z85.3 Personal history of malignant neoplasm of breast; Z90.13 Acquired absence of bilateral breasts and nipples; Z79.899 Other long term (current) drug therapy; Z79.890 Hormone replacement therapy; Z82.49 Family history of ischemic heart disease and other diseases of the circulatory system; Z79.02 Long term (current) use of antithrombotics/antiplatelets; Z95.5 Presence of coronary angioplasty implant and graft; Z86.19 Personal history of other infectious and parasitic diseases
CPT/HCPCS: 36415; 51702; 71045; 71046; 80053; 80061; 81001; 82565; 83036; 83735; 84484; 85025; 85610; 85730; 93005; 93306; 93458; 96365; 96366; 96367; 96372; 96375; 96376; 99291; C1874

== ENCOUNTER 2019-06-09 12:11 | Inpatient (IN) | payer MEDICARE ==
--- NOTE | 2019-06-09 12:34 | ED ---
General Adult HPI - General Chief complaint: Weakness Stated complaint: Fatigue Time Seen by Provider: 06/09/19 12:24 Source: patient, RN notes reviewed Mode of arrival: ambulatory Limitations: no limitations - History of Present Illness Initial comments: Patient is a pleasant 74-year-old female presenting to the emergency department with fatigue. Patient was in the hospital a month ago with similar symptoms with hemoglobin of 5.6. Patient received blood transfusion. Patient was supposed to have EGD and colonoscopy however this has not been done yet. There is been problems with scheduling. Patient denies any black tarry stools or rectal bleeding. No abdominal pain. Patient feels generally weak and fatigued. Patient has been sleeping more than normal. Some decreased appetite. No isolated area of weakness. - Related Data Home Medications Medication Instructions Recorded Confirmed Anastrozole [Arimidex] 1 mg PO HS 01/01/14 05/03/19 Insulin Detemir (Levemir) [Levemir] 55 unit SQ BID 01/01/14 05/03/19 Spironolactone [Aldactone] 25 mg PO DAILY 01/01/14 05/03/19 metFORMIN HCL 1,000 mg PO BID 01/01/14 05/03/19 Dulaglutide [Trulicity] 1.5 mg SQ WE 01/20/19 05/03/19 Furosemide [Lasix] 20 mg PO PC-SUPPER 01/20/19 05/03/19 Furosemide [Lasix] 40 mg PO DAILY@0800 01/20/19 05/03/19 Gabapentin 600 mg PO QID PRN 01/20/19 05/03/19 Levothyroxine Sodium [Synthroid] 75 mcg PO DAILY 01/20/19 05/03/19 Levothyroxine Sodium [Synthroid] 200 mcg PO DAILY 01/20/19 05/03/19 Lisinopril [Zestril] 5 mg PO DAILY 01/20/19 05/03/19 Melatonin 3 mg PO HS 01/20/19 05/03/19 Metoprolol Tartrate [Lopressor] 50 mg PO BID 01/20/19 05/03/19 Potassium Gluconate 99 mg PO W/SUPPER 01/20/19 05/03/19 Venlafaxine HCl [Effexor XR] 75 mg PO HS 01/20/19 05/03/19 Venlafaxine HCl [Effexor XR] 150 mg PO DAILY 01/20/19 05/03/19 traMADol HCL 50 mg PO TID PRN 01/20/19 05/03/19 Amiodarone [Cordarone] 200 mg PO BID 05/03/19 05/03/19 Cyanocobalamin [Vitamin B-12] 500 mcg PO PC-SUPPER 05/03/19 05/03/19 INSULIN LISPRO (humaLOG) [humaLOG] 30 units SQ AC-TID 05/03/19 05/03/19 INSULIN LISPRO (humaLOG) [humaLOG] See Protocol SQ AC-TID 05/03/19 05/03/19 Potassium Bicarb/Sodium 1 tab PO DAILY 05/03/19 05/03/19 Bicarb/Citric Acid Vitamin D3+K2 Dots 1000iu-90mcg 1 tab PO DAILY 05/03/19 05/03/19 Odt Tab Previous Rx's Medication Instructions Recorded Apixaban [Eliquis] 5 mg PO BID #60 tab 01/24/19 Atorvastatin [Lipitor] 80 mg PO HS #30 tab 01/24/19 Clopidogrel [Plavix] 75 mg PO DAILY #30 tab 01/24/19 Nitroglycerin Sl Tabs [Nitrostat] 0.4 mg SUBLINGUAL Q5M PRN #25 tab 01/24/19 Cefuroxime Axetil [Ceftin] 500 mg PO BID 7 Days #14 tab 05/05/19 Allergies Allergy/AdvReac Type Severity Reaction Status Date / Time fluoxetine HCl [From Prozac] Allergy Itching Verified 06/09/19 12:16 gluten Allergy Abdominal Verified 06/09/19 12:16 Pain Sulfa (Sulfonamide Allergy Itching Verified 06/09/19 12:16 Antibiotics) Review of Systems ROS Statement: Those systems with pertinent positive or pertinent negative responses have been documented in the HPI. ROS Other: All systems not noted in ROS Statement are negative. Constitutional: Denies: fever Eyes: Denies: eye pain ENT: Denies: ear pain Respiratory: Denies: cough Cardiovascular: Denies: chest pain Endocrine: Reports: fatigue Gastrointestinal: Denies: abdominal pain, hematemesis, melena, hematochezia Genitourinary: Denies: dysuria Musculoskeletal: Denies: back pain Skin: Denies: rash Neurological: Reports: as per HPI Past Medical History Past Medical History: Atrial Fibrillation, Cancer, Diabetes Mellitus, Hypertension, Sleep Apnea/CPAP/BIPAP, Thyroid Disorder Additional Past Medical History / Comment(s): Heart disease, occipital neuritis History of Any Multi-Drug Resistant Organisms: None Reported Past Surgical History: Appendectomy, Breast Surgery, Heart Catheterization With Stent Past Anesthesia/Blood Transfusion Reactions: No Reported Reaction Date of Last Stent Placement:: 1997 Past Psychological History: No Psychological Hx Reported Smoking Status: Former smoker Past Alcohol Use History: None Reported Past Drug Use History: None Reported - Past Family History Father Family Medical History: Coronary Artery Disease (CAD), Myocardial Infarction ([place]) Additional Family Medical History / Comment(s): Father at age 72 from coronary artery disease with history of diabetes Mother Family Medical History: Coronary Artery Disease (CAD) Additional Family Medical History / Comment(s): Mother at age 72 with history of coronary artery disease and diabetes. Sister(s) Additional Family Medical History / Comment(s): Patient has 1 sister with no major medical problems. Patient does not have. His. Patient has 1 daughter with no major medical problems. No history of breast cancer. General Exam Limitations: no limitations General appearance: alert, in no apparent distress Head exam: Present: normocephalic Eye exam: Present: normal appearance, PERRL ENT exam: Present: normal oropharynx Neck exam: Present: normal inspection Respiratory exam: Present: normal lung sounds bilaterally Cardiovascular Exam: Present: regular rate, normal rhythm GI/Abdominal exam: Present: soft. Absent: tenderness Extremities exam: Present: normal inspection. Absent: pedal edema, calf tender ness Neurological exam: Present: alert, CN II-XII intact. Absent: motor sensory deficit Expanded Neurological exam: Present: protecting the airway Speech: Present: fluid speech Motor strength exam: RUE: 5, LUE: 5, RLE: 5, LLE: 5 Eye Response: (4) open spontaneously Motor Response: (6) obeys commands Verbal Response: (5) oriented Psychiatric exam: Present: normal affect, normal mood Skin exam: Present: normal color Course Vital Signs 06/09/19 06/09/19 12:16 13:31 Temperature 97.4 F L Pulse Rate 54 L 62 Respiratory 16 16 Rate Blood Pressure 115/67 118/54 O2 Sat by Pulse 100 97 Oximetry EKG Findings - EKG Comments: EKG Findings:: Sinus bradycardia 52. IL 170. QRS 84. QT 472. QTC 438. Normal axis. Normal QRS. No acute ST change Medical Decision Making - Medical Decision Making Patient reevaluated. Patient and family updated. Case discussed with Dr. Houston, who will admit covered for Dr. Palacios. She does agree with GI consult and 1 unit PRBCs secondary to symptomatic anemia. - Lab Data Result diagrams: 06/09/19 12:34 06/09/19 12:34 Lab Results 06/09/19 06/09/19 06/09/19 Range/Units 12:34 12:34 12:34 WBC 7.1 (3.8-10.6) k/uL RBC 2.14 L (3.80-5.40) m/uL Hgb 7.2 L (11.4-16.0) gm/dL Hct 22.3 L (34.0-46.0) % MCV 104.2 H (80.0-100.0) fL MCH 33.6 (25.0-35.0) pg MCHC 32.2 (31.0-37.0) g/dL RDW 20.7 H (11.5-15.5) % Plt Count 159 (150-450) k/uL Neutrophils % 63 % Lymphocytes % 21 % Monocytes % 10 % Eosinophils % 3 % Basophils % 1 % Neutrophils # 4.4 (1.3-7.7) k/uL Lymphocytes # 1.5 (1.0-4.8) k/uL Monocytes # 0.7 (0-1.0) k/uL Eosinophils # 0.2 (0-0.7) k/uL Basophils # 0.0 (0-0.2) k/uL Manual Slide Review Performed Hypochromasia Moderate Poikilocytosis Slight Anisocytosis Moderate Macrocytosis Marked A PT 10.1 (9.0-12.0) sec INR 1.0 (<1.2) APTT 22.2 (22.0-30.0) sec Sodium 134 L (137-145) mmol/L Potassium 5.0 (3.5-5.1) mmol/L Chloride 103 (98-107) mmol/L Carbon Dioxide 18 L (22-30) mmol/L Anion Gap 13 mmol/L BUN 38 H (7-17) mg/dL Creatinine 1.27 H (0.52-1.04) mg/dL Est GFR (CKD-EPI)AfAm 48 (>60 ml/min/1.73 sqM) Est GFR (CKD-EPI)NonAf 41 (>60 ml/min/1.73 sqM) Glucose 109 H (74-99) mg/dL Plasma Lactic Acid Jeffry (0.7-2.0) mmol/L Calcium 9.0 (8.4-10.2) mg/dL Magnesium 1.9 (1.6-2.3) mg/dL Total Bilirubin 0.3 (0.2-1.3) mg/dL AST 26 (14-36) U/L ALT 21 (4-34) U/L Alkaline Phosphatase 76 (38-126) U/L Creatine Kinase 35 (30-135) U/L Troponin I (0.000-0.034) ng/mL NT-Pro-B Natriuret Pep pg/mL Total Protein 6.5 (6.3-8.2) g/dL Albumin 3.8 (3.5-5.0) g/dL Urine Color Urine Appearance (Clear) Urine pH (5.0-8.0) Ur Specific Lucan (1.001-1.035) Urine Protein (Negative) Urine Glucose (UA) (Negative) Urine Ketones (Negative) Urine Blood (Negative) Urine Nitrite (Negative) Urine Bilirubin (Negative) Urine Urobilinogen (<2.0) mg/dL Ur Leukocyte Esterase (Negative) Urine RBC (0-5) /hpf Urine WBC (0-5) /hpf Ur Squamous Epith Cells (0-4) /hpf Urine Bacteria (None) /hpf Hyaline Casts (0-2) /lpf Urine Mucus (None) /hpf 06/09/19 06/09/19 06/09/19 Range/Units 12:34 12:34 12:34 WBC (3.8-10.6) k/uL RBC (3.80-5.40) m/uL Hgb (11.4-16.0) gm/dL Hct (34.0-46.0) % MCV (80.0-100.0) fL MCH (25.0-35.0) pg MCHC (31.0-37.0) g/dL RDW (11.5-15.5) % Plt Count (150-450) k/uL Neutrophils % % Lymphocytes % % Monocytes % % Eosinophils % % Basophils % % Neutrophils # (1.3-7.7) k/uL Lymphocytes # (1.0-4.8) k/uL Monocytes # (0-1.0) k/uL Eosinophils # (0-0.7) k/uL Basophils # (0-0.2) k/uL Manual Slide Review Hypochromasia Poikilocytosis Anisocytosis Macrocytosis PT (9.0-12.0) sec INR (<1.2) APTT (22.0-30.0) sec Sodium (137-145) mmol/L Potassium (3.5-5.1) mmol/L Chloride (98-107) mmol/L Carbon Dioxide (22-30) mmol/L Anion Gap mmol/L BUN (7-17) mg/dL Creatinine (0.52-1.04) mg/dL Est GFR (CKD-EPI)AfAm (>60 ml/min/1.73 sqM) Est GFR (CKD-EPI)NonAf (>60 ml/min/1.73 sqM) Glucose (74-99) mg/dL Plasma Lactic Acid Jeffry 3.5 H* (0.7-2.0) mmol/L Calcium (8.4-10.2) mg/dL Magnesium (1.6-2.3) mg/dL Total Bilirubin (0.2-1.3) mg/dL AST (14-36) U/L ALT (4-34) U/L Alkaline Phosphatase (38-126) U/L Creatine Kinase (30-135) U/L Troponin I <0.012 (0.000-0.034) ng/mL NT-Pro-B Natriuret Pep 367 pg/mL Total Protein (6.3-8.2) g/dL Albumin (3.5-5.0) g/dL Urine Color Urine Appearance (Clear) Urine pH (5.0-8.0) Ur Specific Lucan (1.001-1.035) Urine Protein (Negative) Urine Glucose (UA) (Negative) Urine Ketones (Negative) Urine Blood (Negative) Urine Nitrite (Negative) Urine Bilirubin (Negative) Urine Urobilinogen (<2.0) mg/dL Ur Leukocyte Esterase (Negative) Urine RBC (0-5) /hpf Urine WBC (0-5) /hpf Ur Squamous Epith Cells (0-4) /hpf Urine Bacteria (None) /hpf Hyaline Casts (0-2) /lpf Urine Mucus (None) /hpf 06/08/ Range/Units 14:13 WBC (3.8-10.6) k/uL RBC (3.80-5.40) m/uL Hgb (11.4-16.0) gm/dL Hct (34.0-46.0) % MCV (80.0-100.0) fL MCH (25.0-35.0) pg MCHC (31.0-37.0) g/dL RDW (11.5-15.5) % Plt Count (150-450) k/uL Neutrophils % % Lymphocytes % % Monocytes % % Eosinophils % % Basophils % % Neutrophils # (1.3-7.7) k/uL Lymphocytes # (1.0-4.8) k/uL Monocytes # (0-1.0) k/uL Eosinophils # (0-0.7) k/uL Basophils # (0-0.2) k/uL Manual Slide Review Hypochromasia Poikilocytosis Anisocytosis Macrocytosis PT (9.0-12.0) sec INR (<1.2) APTT (22.0-30.0) sec Sodium (137-145) mmol/L Potassium (3.5-5.1) mmol/L Chloride (98-107) mmol/L Carbon Dioxide (22-30) mmol/L Anion Gap mmol/L BUN (7-17) mg/dL Creatinine (0.52-1.04) mg/dL Est GFR (CKD-EPI)AfAm (>60 ml/min/1.73 sqM) Est GFR (CKD-EPI)NonAf (>60 ml/min/1.73 sqM) Glucose (74-99) mg/dL Plasma Lactic Acid Jeffry (0.7-2.0) mmol/L Calcium (8.4-10.2) mg/dL Magnesium (1.6-2.3) mg/dL Total Bilirubin (0.2-1.3) mg/dL AST (14-36) U/L ALT (4-34) U/L Alkaline Phosphatase (38-126) U/L Creatine Kinase (30-135) U/L Troponin I (0.000-0.034) ng/mL NT-Pro-B Natriuret Pep pg/mL Total Protein (6.3-8.2) g/dL Albumin (3.5-5.0) g/dL Urine Color Light Yellow Urine Appearance Clear (Clear) Urine pH 5.0 (5.0-8.0) Ur Specific Lucan 1.007 (1.001-1.035) Urine Protein Negative (Negative) Urine Glucose (UA) Negative (Negative) Urine Ketones Negative (Negative) Urine Blood Negative (Negative) Urine Nitrite Negative (Negative) Urine Bilirubin Negative (Negative) Urine Urobilinogen <2.0 (<2.0) mg/dL Ur Leukocyte Esterase Small H (Negative) Urine RBC <1 (0-5) /hpf Urine WBC 2 (0-5) /hpf Ur Squamous Epith Cells 1 (0-4) /hpf Urine Bacteria Rare H (None) /hpf Hyaline Casts 4 H (0-2) /lpf Urine Mucus Rare H (None) /hpf - Radiology Data Radiology results: image reviewed (Chest x-ray reveals no acute process) Disposition Clinical Impression: Symptomatic anemia Disposition: ADMITTED IP TO THIS HOSP Is patient prescribed a controlled substance at d/c from ED?: No Referrals: Jaxon Palacios MD [Primary Care Provider] - 1-2 days Decision Time: 14:46
[2019-06-09 13:00] LABS: Partial Thromboplastin Time 22.2 sec (22.0-30.0); Prothrombin Time 10.1 sec (9.0-12.0)
--- NOTE | 2019-06-09 13:02 | XR ---
EXAMINATION TYPE: XR chest 2V DATE OF EXAM: 06/09/2019 COMPARISON: 05/03/2019 TECHNIQUE: PA and lateral views submitted. HISTORY: Shortness of breath and weakness FINDINGS: The lungs are clear and there is no pneumothorax, pleural effusion, or focal pneumonia. The heart i s markedly enlarged. Atherosclerotic change aorta. Surgical clips in the axilla. Arthropathy of the s houlders. Hypertrophic and degenerative change of the spine. Surgical clips in the abdomen. Prominenc e the right perihilar soft tissues remains. This may be related to patient rotation. IMPRESSION: 1. No acute process.
[2019-06-09 13:06] LABS: Albumin 3.8 g/dL (3.5-5.0); Total Protein 6.5 g/dL (6.3-8.2)
[2019-06-09 13:09] LABS: Magnesium 1.9 mg/dL (1.6-2.3); Total Bilirubin 0.3 mg/dL (0.2-1.3)
[2019-06-09 13:25] LABS: Anisocytosis Moderate; Basophils % (A) 1 %; Eosinophils # (A) 0.2 k/uL (0-0.7); Eosinophils % (A) 3 %; HCT 22.3 % (34.0-46.0); HGB 7.2 gm/dL (11.4-16.0); Hypochromasia Moderate; Lymphocytes # (A) 1.5 k/uL (1.0-4.8); Lymphocytes % (A) 21 %; MCH 33.6 pg (25.0-35.0); MCHC 32.2 g/dL (31.0-37.0); MCV 104.2 fL (80.0-100.0); Macrocytosis Marked; Monocytes # (A) 0.7 k/uL (0-1.0); Monocytes % (A) 10 %; Neutrophils # (A) 4.4 k/uL (1.3-7.7); Neutrophils % (A) 63 %; Platelet Count 159 k/uL (150-450); Poikilocytosis Slight; RBC 2.14 m/uL (3.80-5.40); RDW 20.7 % (11.5-15.5); WBC 7.1 k/uL (3.8-10.6)
[2019-06-09 14:25] LABS: Appearance,Urine Clear (Clear); Bacteria,Urine Rare /hpf; Bilirubin,Urine Negative (Negative); Blood,Urine Negative (Negative); Color,Urine Light Yellow; Glucose,Urine (UA) Negative (Negative); Hyaline Casts,Urine 4 /lpf (0-2); Ketones,Urine Negative (Negative); Leukocyte Esterase,Urine Small (Negative); Mucus,Urine Rare /hpf; Nitrite,Urine Negative (Negative); Protein,Urine Negative (Negative); RBC,Urine <1 /hpf (0-5); Specific Gravity,Urine 1.007 (1.001-1.035); Squamous Epithelial Cell,Urine 1 /hpf (0-4); Urobilinogen,Urine <2.0 mg/dL (<2.0); WBC,Urine 2 /hpf (0-5)
[2019-06-09] MEDS ORDERED: NALOXONE 0.4 MG/ML 1 ML VIAL IV PRN (14:47)
[2019-06-09] MEDS ORDERED: PANTOPRAZOLE 40 MG/10 ML VIAL IV SCH (15:00)
[2019-06-09] MEDS: SODIUM CHLORIDE 0.9% 1,000 ML IV SCH (15:10)
[2019-06-09] MEDS ORDERED: SODIUM CHLORIDE 0.9% 3,000 ML IV ONE (18:45)
[2019-06-09 20:16] LABS: HCT 22.2 % (34.0-46.0); MCH 33.6 pg (25.0-35.0); MCHC 31.7 g/dL (31.0-37.0); RBC 2.09 m/uL (3.80-5.40); RDW 20.6 % (11.5-15.5); WBC 5.4 k/uL (3.8-10.6)
[2019-06-09 20:17] LABS: Mean Platelet Volume 7.8; Platelet Count 137 k/uL (150-450)
[2019-06-09 21:09] LABS: Anisocytosis (M) Present; Basophils # (M) 0.05 k/uL (0-0.2); Eosinophils # (M) 0.16 k/uL (0-0.7); Lymphocytes # (M) 1.19 k/uL (1.0-4.8); Monocytes # (M) 0.22 k/uL (0-1.0); Neutrophils # (M) 3.78 k/uL (1.3-7.7); Neutrophils % (M) 70 %; Nucleated Red Blood Cells 0 /100 WBC (0-0); Polychromasia Present; Total Cells Counted 100
[2019-06-09] MEDS ORDERED: GABAPENTIN 300 MG CAP PO PRN (23:00)
[2019-06-09 23:12] LABS: Glucose,Whole Blood 147 mg/dL (75-99)
[2019-06-09] MEDS: MELATONIN 3 MG TABLET PO SCH (23:30)
[2019-06-09] MEDS: ATORVASTATIN 80 MG TAB PO SCH (23:30)
[2019-06-09] MEDS: METOPROLOL TARTRATE 50 MG TAB PO SCH (23:30)
[2019-06-09] MEDS: PANTOPRAZOLE 40 MG/10 ML VIAL IVP SCH (23:30)
[2019-06-09] MEDS: AMIODARONE 200 MG TAB PO SCH (23:31)
[2019-06-09] MEDS: VENLAFAXINE HCL ER 75 MG CAP PO SCH (23:31)
[2019-06-10] MEDS: SODIUM CHLORIDE 0.9% 1,000 ML IV SCH ×2 (04:57→17:34)
[2019-06-10] MEDS: LEVOTHYROXINE 75 MCG TAB PO SCH (05:31)
[2019-06-10 07:15] LABS: Glucose,Whole Blood 190 mg/dL (75-99)
[2019-06-10 07:34] LABS: Anisocytosis Moderate; Basophils % (A) 0 %; Eosinophils # (A) 0.2 k/uL (0-0.7); Eosinophils % (A) 4 %; HCT 22.7 % (34.0-46.0); HGB 7.3 gm/dL (11.4-16.0); Hypochromasia Moderate; Lymphocytes # (A) 0.9 k/uL (1.0-4.8); Lymphocytes % (A) 19 %; MCH 32.6 pg (25.0-35.0); MCHC 32.1 g/dL (31.0-37.0); MCV 101.9 fL (80.0-100.0); Macrocytosis Marked; Mean Platelet Volume 7.8; Monocytes # (A) 0.5 k/uL (0-1.0); Monocytes % (A) 11 %; Neutrophils % (A) 63 %; Platelet Count 125 k/uL (150-450); Poikilocytosis Moderate; RBC 2.23 m/uL (3.80-5.40); RDW 20.8 % (11.5-15.5); WBC 4.7 k/uL (3.8-10.6)
[2019-06-10] MEDS: PANTOPRAZOLE 40 MG/10 ML VIAL IVP SCH ×2 (07:45→20:35)
[2019-06-10] MEDS: AMIODARONE 200 MG TAB PO SCH ×2 (07:47→20:35)
[2019-06-10] MEDS: LISINOPRIL 5 MG TAB PO SCH (07:47)
[2019-06-10] MEDS: METOPROLOL TARTRATE 50 MG TAB PO SCH ×2 (07:47→20:35)
[2019-06-10] MEDS: SPIRONOLACTONE 25 MG TAB PO SCH (07:47)
[2019-06-10] MEDS: INSULIN ASPART (NovoLOG) 100 UNIT/ML VIAL SQ SCH ×4 (07:48→20:40)
[2019-06-10 07:51] LABS: Calcium 8.7 mg/dL (8.4-10.2); Potassium 4.8 mmol/L (3.5-5.1)
--- NOTE | 2019-06-10 11:15 | P.HPIM ---
History of Present Illness H&P Date: 06/10/19 This is a pleasant 74-year-old female who presented to the emergency department with increased fatigue. Patient was in the hospital approximately one month ago with similar symptoms and was found to have a hemoglobin of 5.6. At that time patient received 3 blood transfusions. And was sent home with a hemoglobin of greater than 7. Patient was scheduled to have a EGD and colonoscopy however due to scheduling she had not have them performed. Patient denies any black tarry stools or rectal bleeding. Denies any abdominal pain. She is complaining of general weakness and fatigue. Patient states each day she found to be more exhausted and less active. Denies any falling. During previous hospitalization patient was worked up for MDS with chronic anemia. In December 2018 patient had a RCA stent. She was placed on Plavix at that time. She is continued to take Plavix since her hospitalization. Patient is also on eliquis for atrial fibrillation At this time patient is resting in bed in no acute distress. Patient continues to have fatigue and generalized weakness. Denies any black tarry stool or rectal bleeding. Denies any abdominal pain. Patient is scheduled for a scope tomorrow. Patient does have some shortness of breath with activity. She is post transfusion of 1 unit last night with a hemoglobin of 7.3 Review of Systems Review Of Systems: Constitutional: No fever, no chills, no night sweats. No weight change. Report weakness and fatigue no lethargy. No daytime sleepiness. EENT: No headache. No blurred vision or double vision, no loss of vision. No loss of Hearing, no ringing in the ears, no dizziness. No nasal drainage or congestion. No epistaxis. No sore throat. Lungs: Report shortness of breath, no cough, no sputum production. No wheezing. Cardiovascular: No chest pain, no lower extremity edema. No palpitations. No paroxysmal nocturnal dyspnea. No orthopnea. No lightheadedness or dizziness. No syncopal episodes. Abdominal: no abdominal discomfort. No nausea, vomiting. no diarrhea. No constipation. No bloody or tarry stools. no loss of appetite. Genitourinary: No dysuria, increased frequency, urgency. No urinary retention. Musculoskeletal: No myalgias. No muscle weakness, no gait dysfunction, no frequent falls. No back pain. No neck pain. Integumentary: No wounds, no lesions. No rash or pruritus. No unusual bruising. No change in hair or nails. Neurologic: No aphasia. No facial droop. No change in mentation. No head injury. No headache. No paralysis. No paresthesia. Psychiatric: No depression. No anxiety. No mood swings. Endocrine: No abnormal blood sugars. No weight change. No excessive sweating or thirst. Past Medical History Past Medical History: Atrial Fibrillation, Cancer, Diabetes Mellitus, Hypertension, Sleep Apnea/CPAP/BIPAP, Thyroid Disorder Additional Past Medical History / Comment(s): Heart disease, ocular neuritis History of Any Multi-Drug Resistant Organisms: None Reported Past Surgical History: Appendectomy, Breast Surgery, Cholecystectomy, Heart Catheterization With Stent Additional Past Surgical History / Comment(s): bilateral masectomy, heart cath follow up in 2000 Past Anesthesia/Blood Transfusion Reactions: No Reported Reaction Date of Last Stent Placement:: 1997 Past Psychological History: No Psychological Hx Reported Smoking Status: Former smoker Past Alcohol Use History: None Reported Additional Past Alcohol Use History / Comment(s): Patient was a smoker of 4 packs per day and quit 20 years ago. She worked in the past as a medical field representative. She currently lives at home with her daughter and her daughter's lives with her. Patient has CPAP. She denies any oxygen use. Past Drug Use History: None Reported - Past Family History Father Family Medical History: Coronary Artery Disease (CAD), Hypertension, Myocardial Infarction ([place]) Additional Family Medical History / Comment(s): Father at age 72 from coronary artery disease with history of diabetes Mother Family Medical History: Coronary Artery Disease (CAD) Additional Family Medical History / Comment(s): Mother at age 72 with history of coronary artery disease and diabetes. Sister(s) Additional Family Medical History / Comment(s): Patient has 1 sister with no major medical problems. Patient does not have. His. Patient has 1 daughter with no major medical problems. No history of breast cancer. Medications and Allergies Home Medications Medication Instructions Recorded Confirmed Type Anastrozole [Arimidex] 1 mg PO HS 01/01/14 06/09/19 History Insulin Detemir (Levemir) [Levemir] 55 unit SQ BID 01/01/14 06/09/19 History Spironolactone [Aldactone] 25 mg PO DAILY 01/01/14 06/09/19 History metFORMIN HCL 1,000 mg PO BID 01/01/14 06/09/19 History Dulaglutide [Trulicity] 1.5 mg SQ WE 01/20/19 06/09/19 History Furosemide [Lasix] 20 mg PO PC-SUPPER 01/20/19 06/09/19 History Furosemide [Lasix] 40 mg PO DAILY@0800 01/20/19 06/09/19 History Gabapentin 600 mg PO Q6HR 01/20/19 06/10/19 History Levothyroxine Sodium [Synthroid] 75 mcg PO DAILY 01/20/19 06/09/19 History Levothyroxine Sodium [Synthroid] 200 mcg PO DAILY 01/20/19 06/09/19 History Lisinopril [Zestril] 5 mg PO DAILY 01/20/19 06/09/19 History Melatonin 3 mg PO HS 01/20/19 06/09/19 History Metoprolol Tartrate [Lopressor] 50 mg PO BID 01/20/19 06/09/19 History Potassium Gluconate 99 mg PO W/SUPPER 01/20/19 06/09/19 History Venlafaxine HCl [Effexor XR] 75 mg PO HS 01/20/19 06/09/19 History Venlafaxine HCl [Effexor XR] 150 mg PO DAILY 01/20/19 06/09/19 History traMADol HCL 50 mg PO TID PRN 01/20/19 06/09/19 History Apixaban [Eliquis] 5 mg PO BID #60 tab 01/24/19 06/09/19 Rx Atorvastatin [Lipitor] 80 mg PO HS #30 tab 01/24/19 06/09/19 Rx Clopidogrel [Plavix] 75 mg PO DAILY #30 tab 01/24/19 06/09/19 Rx Nitroglycerin Sl Tabs [Nitrostat] 0.4 mg SUBLINGUAL Q5M PRN #25 tab 01/24/19 06/09/19 Rx Amiodarone [Cordarone] 200 mg PO BID 05/03/19 06/09/19 History Cyanocobalamin [Vitamin B-12] 500 mcg PO PC-SUPPER 05/03/19 06/09/19 History INSULIN LISPRO (humaLOG) [humaLOG] 30 units SQ AC-TID 05/03/19 06/09/19 History INSULIN LISPRO (humaLOG) [humaLOG] See Protocol SQ AC-TID 05/03/19 06/09/19 History Potassium Bicarb/Sodium 1 tab PO DAILY 05/03/19 06/09/19 History Bicarb/Citric Acid Vitamin D3+K2 Dots 1000iu-90mcg 1 tab PO DAILY 05/03/19 06/09/19 History Odt Tab Cefuroxime Axetil [Ceftin] 500 mg PO BID 7 Days #14 tab 05/05/19 06/09/19 Rx Allergies Allergy/AdvReac Type Severity Reaction Status Date / Time fluoxetine HCl [From Prozac] Allergy Itching Verified 06/09/19 16:42 gluten Allergy Abdominal Verified 06/09/19 16:42 Pain Sulfa (Sulfonamide Allergy Itching Verified 06/09/19 16:42 Antibiotics) Physical Exam Vitals: Vital Signs Temp Pulse Pulse Resp BP BP Pulse Ox 06/10/19 05:05 97.6 F 70 16 154/55 98 06/10/19 04:05 98.6 F 63 18 149/72 99 06/10/19 02:35 65 144/67 06/10/19 01:58 98.3 F 65 18 131/58 95 06/10/19 01:28 98.0 F 63 18 114/64 97 06/10/19 01:18 98.1 F 66 18 120/66 06/10/19 01:10 98.1 F 64 18 112/63 99 06/09/19 19:31 97.7 F 71 18 151/65 98 06/09/19 16:00 98.0 F 62 16 123/53 96 06/09/19 15:44 86 16 123/86 99 06/09/19 13:31 62 16 118/54 97 06/09/19 12:16 97.4 F L 54 L 16 115/67 100 Intake and Output 06/09/19 06/10/19 06/10/19 22:59 06:59 14:59 Intake Total 310 Balance 310 Intake: Blood Product 310 Rc As-1 Unit 310 [id number] Other: Voiding Method Toilet # Voids 2 1 Weight 117.934 kg General Appearance: Alert, cooperative, mild distress with activity in conversation, appears stated age. Neck HEENT: Supple, no lymphadenopathy, no thyroid enlargement, no carotid bruits. Lungs: Clear to auscultation without crackles or wheezes no rhonchi, no def ormity. Chest Wall: Chest wall normal expansion with deep inspiration no tenderness and no deformity was found on exam, no costochondral pain or discomfort. Heart: Diastolic murmur Regular rate and rhythm, S1, S2 normal, no rub or gallop. Back: Symmetric, no curvature, ROM normal, no CVA tenderness. Abdomen: Soft, non-tender, no rebound or rigidity, no hepatosplenomegaly. Extremities: Extremities normal, atraumatic, no cyanosis, 1+ bilateral pedal edema. Pulses: 2+ and symmetric. Skin: Skin color, texture, tugor normal, no rashes or lesions. Neurologic: Alert oriented x3 cranial nerves II through XII intact, no motor deficit, no abnormal balance or gait Results CBC & Chem 7: 06/10/19 06:46 06/10/19 06:46 Labs: Abnormal Lab Results - Last 24 Hours (Table) 06/09/19 06/09/19 06/09/19 Range/Units 12:34 12:34 12:34 RBC 2.14 L (3.80-5.40) m/uL Hgb 7.2 L (11.4-16.0) gm/dL Hct 22.3 L (34.0-46.0) % MCV 104.2 H (80.0-100.0) fL RDW 20.7 H (11.5-15.5) % Plt Count (150-450) k/uL Macrocytosis Marked A Sodium 134 L (137-145) mmol/L Chloride (98-107) mmol/L Carbon Dioxide 18 L (22-30) mmol/L BUN 38 H (7-17) mg/dL Creatinine 1.27 H (0.52-1.04) mg/dL Glucose 109 H (74-99) mg/dL POC Glucose (mg/dL) (75-99) mg/dL Plasma Lactic Acid Jeffry 3.5 H* (0.7-2.0) mmol/L Ur Leukocyte Esterase (Negative) Urine Bacteria (None) /hpf Hyaline Casts (0-2) /lpf Urine Mucus (None) /hpf Crossmatch 06/09/19 06/09/19 06/09/19 Range/Units 12:34 14:13 16:44 RBC (3.80-5.40) m/uL Hgb (11.4-16.0) gm/dL Hct (34.0-46.0) % MCV (80.0-100.0) fL RDW (11.5-15.5) % Plt Count (150-450) k/uL Macrocytosis Sodium (137-145) mmol/L Chloride (98-107) mmol/L Carbon Dioxide (22-30) mmol/L BUN (7-17) mg/dL Creatinine (0.52-1.04) mg/dL Glucose (74-99) mg/dL POC Glucose (mg/dL) (75-99) mg/dL Plasma Lactic Acid Jeffry 5.1 H* (0.7-2.0) mmol/L Ur Leukocyte Esterase Small H (Negative) Urine Bacteria Rare H (None) /hpf Hyaline Casts 4 H (0-2) /lpf Urine Mucus Rare H (None) /hpf Crossmatch See Detail 06/09/19 06/09/19 06/10/19 Range/Units 18:55 23:07 06:46 RBC 2.09 L (3.80-5.40) m/uL Hgb 7.0 L (11.4-16.0) gm/dL Hct 22.2 L (34.0-46.0) % MCV 106.0 H (80.0-100.0) fL RDW 20.6 H (11.5-15.5) % Plt Count 137 L (150-450) k/uL Macrocytosis Sodium 136 L (137-145) mmol/L Chloride 109 H (98-107) mmol/L Carbon Dioxide 19 L (22-30) mmol/L BUN 29 H (7-17) mg/dL Creatinine (0.52-1.04) mg/dL Glucose 160 H (74-99) mg/dL POC Glucose (mg/dL) 147 H (75-99) mg/dL Plasma Lactic Acid Jeffry (0.7-2.0) mmol/L Ur Leukocyte Esterase (Negative) Urine Bacteria (None) /hpf Hyaline Casts (0-2) /lpf Urine Mucus (None) /hpf Crossmatch 06/10/19 06/10/19 Range/Units 06:46 07:12 RBC 2.23 L (3.80-5.40) m/uL Hgb 7.3 L (11.4-16.0) gm/dL Hct 22.7 L (34.0-46.0) % MCV 101.9 H (80.0-100.0) fL RDW 20.8 H (11.5-15.5) % Plt Count 125 L (150-450) k/uL Macrocytosis Marked A Sodium (137-145) mmol/L Chloride (98-107) mmol/L Carbon Dioxide (22-30) mmol/L BUN (7-17) mg/dL Creatinine (0.52-1.04) mg/dL Glucose (74-99) mg/dL POC Glucose (mg/dL) 190 H (75-99) mg/dL Plasma Lactic Acid Jeffry (0.7-2.0) mmol/L Ur Leukocyte Esterase (Negative) Urine Bacteria (None) /hpf Hyaline Casts (0-2) /lpf Urine Mucus (None) /hpf Crossmatch Thrombosis Risk Factor Assmnt - Choose All That Apply Each Factor Represents 1 point: Obesity (BMI >25) Each Risk Factor Represents 2 Points: Age 61-74 years Thrombosis Risk Factor Assessment Total Risk Factor Score: 3 Thrombosis Risk Factor Assessment Level: Moderate Risk Assessment and Plan Plan: 1. Symptomatic anemia rule out GI bleed, unclear etiology. GI consult appreciated. Scheduled for endoscopic tomorrow. Previous admission patient underwent testing for MDS with chronic anemia. Admission hemoglobin 7.0 Posttransfusion 1 unit hemoglobin 7.3. Monitor hemoglobin. CBC every 8 hours 5. 2. Paroxysmal atrial fibrillation. Amiodarone 20 mg by mouth twice a day, hold eloqius 4. Recent non-ST elevated myocardial infarction status post heart cath and stenting of RCA December,. Hold Plavix, consult cardiology related to recent stenting 5. History of coronary artery disease with multiple stent placements starting in 1997 and again in 2019. Continue as above. 6. Diabetes mellitus type 2. Sliding scale, Levemir 30 mg twice a day 7. Hypertension. Lasix 20 mg by mouth at supper, 40 mg by mouth at 8 AM, metoprolol 50 mg by mouth twice a day, Aldactone 25 mg by mouth daily, lisino pril 5 mg by mouth daily 8. Hyperlipidemia. Lipitor 80 mg by mouth at bedtime 9. Hypothyroidism. Levothyroxine 275 MCG daily 10. Fibromyalgia, stable. Gabapentin 600 mg by mouth daily 11. History of breast cancer status post bilateral mastectomy. Continue Arimidex. 12. Generalized anxiety disorder and recurrent depression. Continue Effexor XR 150 mg the morning and 75 mg at bedtime. 13. Obstructive sleep apnea. Patient have daughter bring in CPAP. 14. GI prophylaxis. Protonix twice daily. Patient will be admitted to the hospital for a minimum of 2 night stay. Discharge plan: Most likely return home, possible home care. Impression and plan of care have been directed as dictated by the signing physician. Sepideh King nurse practitioner acting as scribe for signing physician. Additional cc: Jaxon Palacios
[2019-06-10] MEDS: LEVOTHYROXINE 100 MCG TAB PO SCH (11:16)
[2019-06-10 11:43] LABS: Glucose,Whole Blood 223 mg/dL (75-99)
--- NOTE | 2019-06-10 12:29 | CONS ---
CONSULTATION DATE OF DICTATION: 06/10/2019 REASON FOR CONSULTATION: Symptomatic anemia. HISTORY OF PRESENT ILLNESS: The patient is a 74-year-old pleasant white female who came into the emergency room because of hemoglobin of 7 g/dL. The patient had a hospitalization about a month ago with a hemoglobin of 5.6, requiring 2 units of blood transfusion. She has been on Eliquis for atrial fibrillation for the last one year. She was recommended to have an EGD, colonoscopy during the last hospitalization, but she elected to have it on an outpatient basis. However, in the meantime she had recurrent anemia and is now back in the hospital. She received one more unit of blood transfusion and she is feeling better. She denies any abdominal pain. No nausea, no vomiting. No rectal bleeding or melena. Her last dose of Eliquis was yesterday morning. PAST MEDICAL HISTORY: Significant for atrial fibrillation, on Eliquis, history of hypertension, hyperlipidemia, obesity, diabetes mellitus, history of breast cancer in the past, sleep apnea and coronary artery disease. PAST SURGICAL HISTORY: Appendectomy, breast surgery, cardiac catheterization with stent placement. SOCIAL HISTORY: No smoking or alcohol use. FAMILY HISTORY: Father had coronary artery disease and CT. Mother also had coronary artery disease. MEDICATIONS: Medications at home include Synthroid, Zestril, melatonin, Lopressor, potassium, Effexor, tramadol, Cordarone, vitamin D, Humalog, vitamin C, Lasix, Trulicity, metformin, Aldactone, Levemir, Arimidex and gabapentin. REVIEW OF SYSTEMS: CARDIOPULMONARY: No chest pain or shortness of breath. GENITOURINARY: No dysuria or hematuria. MUSCULOSKELETAL: Unremarkable. SKIN: Unremarkable. ENDOCRINE: Unremarkable. PSYCHIATRIC: Unremarkable. NEUROLOGY: Unremarkable. ENT/VISION: Unremarkable. CONSTITUTIONAL: No recent weight loss. No fever, chills, night sweats. PHYSICAL EXAMINATION: Blood pressure 154/55, pulse rate 70, temperature 97.6. HEENT examination unremarkable. Conjunctivae pink. Sclerae anicteric. Oral cavity no lesions. NECK: No JVD or lymph node enlargement. CHEST: Clear to auscultation. HEART: Regular rate and rhythm. ABDOMEN: Soft. Bowel sounds are positive. No organomegaly. EXTREMITIES: No pedal edema. SKIN: No rashes. NEUROLOGIC: Alert and oriented x3. No focal deficits. LABS: WBC 5.4, hemoglobin 7, platelets 137, MCV is 106. BUN is 29, creatinine 0.98. Rest of the labs are within normal limits. IMPRESSION: 1. Severe symptomatic anemia with a hemoglobin of 7 g/dL. She had a hospitalization about a month ago with a hemoglobin of 5.6 and Hemoccult-positive stool. She has been on Eliquis for atrial fibrillation, which is currently on hold for the last day. Clinically she has no GI symptoms. No active bleeding noted. 2. Atrial fibrillation, on Eliquis, currently on hold. 3. History of diabetes mellitus and hypertension. 4. Coronary artery disease. 5. Hypothyroidism. RECOMMENDATIONS: 1. Hold Eliquis. 2. Clear liquid diet. 3. Will proceed with EGD and colonoscopy tomorrow. I discussed with the patient risks, benefits and complications of the procedure, and she is agreeable to it. Thank you for this consultation. MMODL / IJN: [id number] /
[2019-06-10] MEDS ORDERED: PEG 3350-NA SULF,BICARB,CL/KCL 4,000 ML BOTTLE PO ONE (16:00)
[2019-06-10 17:10] LABS: Glucose,Whole Blood 177 mg/dL (75-99)
[2019-06-10] MEDS ORDERED: CYANOCOBALAMIN 500 MCG TAB PO SCH (18:30)
[2019-06-10] MEDS ORDERED: FUROSEMIDE 20 MG TAB PO SCH (18:30)
[2019-06-10] MEDS: MELATONIN 3 MG TABLET PO SCH (20:35)
[2019-06-10] MEDS: ATORVASTATIN 80 MG TAB PO SCH (20:35)
[2019-06-10] MEDS: INSULIN DETEMIR (LEVEMIR) 100 UNIT/ML SYR SQ SCH (20:35)
[2019-06-10] MEDS: VENLAFAXINE HCL ER 75 MG CAP PO SCH (20:36)
[2019-06-10 20:37] LABS: Glucose,Whole Blood 188 mg/dL (75-99)
[2019-06-10] MEDS ORDERED: ANASTROZOLE 1 MG TAB PO SCH (21:00)
[2019-06-11] MEDS: traMADol 50 MG TAB PO PRN ×2 (03:51→10:53)
[2019-06-11 05:09] VITALS: BP 164/52; PULSE 74; RESP 16; TEMP 97.9
[2019-06-11] MEDS: LEVOTHYROXINE 100 MCG TAB PO SCH (05:48)
[2019-06-11] MEDS: LEVOTHYROXINE 75 MCG TAB PO SCH (05:48)
[2019-06-11 06:35] LABS: Anisocytosis Moderate; Basophils % (A) 0 %; Eosinophils # (A) 0.1 k/uL (0-0.7); Eosinophils % (A) 2 %; HCT 23.1 % (34.0-46.0); HGB 7.3 gm/dL (11.4-16.0); Hypochromasia Slight; Lymphocytes # (A) 0.8 k/uL (1.0-4.8); Lymphocytes % (A) 20 %; MCH 32.2 pg (25.0-35.0); MCHC 31.5 g/dL (31.0-37.0); MCV 102.4 fL (80.0-100.0); Mean Platelet Volume 7.9; Monocytes # (A) 0.5 k/uL (0-1.0); Monocytes % (A) 12 %; Neutrophils # (A) 2.4 k/uL (1.3-7.7); Neutrophils % (A) 61 %; Platelet Count 112 k/uL (150-450); Poikilocytosis Moderate; RBC 2.26 m/uL (3.80-5.40); RDW 20.8 % (11.5-15.5); WBC 3.9 k/uL (3.8-10.6)
[2019-06-11 06:54] LABS: Macrocytosis Marked
[2019-06-11 07:31] LABS: Glucose,Whole Blood 194 mg/dL (75-99)
[2019-06-11] MEDS: SPIRONOLACTONE 25 MG TAB PO SCH (07:33)
[2019-06-11] MEDS: AMIODARONE 200 MG TAB PO SCH (07:33)
[2019-06-11] MEDS: METOPROLOL TARTRATE 50 MG TAB PO SCH (07:33)
[2019-06-11] MEDS: INSULIN ASPART (NovoLOG) 100 UNIT/ML VIAL SQ SCH (07:34)
[2019-06-11] MEDS: PANTOPRAZOLE 40 MG/10 ML VIAL IVP SCH (07:34)
[2019-06-11] MEDS: INSULIN DETEMIR (LEVEMIR) 100 UNIT/ML SYR SQ SCH (07:34)
[2019-06-11] MEDS: LISINOPRIL 5 MG TAB PO SCH (07:34)
[2019-06-11] MEDS: SODIUM CHLORIDE 0.9% 1,000 ML IV SCH (07:35)
[2019-06-11] MEDS ORDERED: MIDAZOLAM 2 MG/2 ML VIAL ONE (07:57)
[2019-06-11] MEDS ORDERED: LIDOCAINE 1% INJ 10MG/ML (20 ML MDV) ONE (07:57)
[2019-06-11] MEDS ORDERED: fentaNYL (PF) 50 MCG/ML 2 ML AMP ONE (07:57)
[2019-06-11] MEDS ORDERED: PROPOFOL 10 MG/ML 20 ML VIAL IV ONE (07:57)
[2019-06-11] MEDS ORDERED: ALBUTEROL INHALER 60 PUFF/8 GM INHALER INHALATION ONE (07:57)
[2019-06-11] MEDS ORDERED: LACTATED RINGERS 1,000 ML IV ONE ×2 (08:00)
[2019-06-11] MEDS ORDERED: FUROSEMIDE 40 MG TAB PO SCH (08:00)
--- NOTE | 2019-06-11 08:25 | P.PCN ---
Date of Procedure: 06/11/19 Procedure(s) Performed: Brief history: Patient is a pleasant 74-year-old white female admitted hospital with severe symptomatic anemia and hemoglobin of 6.5 g/dL requiring a blood transfusion. She had a similar episode a month ago and was admitted hospital with a hemoglobin of 5.6 requiring 2 units of blood transfusion. She has been on a Eliquis for A. fib and has been on hold for 2 days. She is hence for an elective upper endoscopy as well as colonoscopy as a part of evaluation of severe symptomatic anemia and Hemoccult-positive stool Procedure performed: Esophagogastroduodenoscopy with biopsy Colonoscopy with snare polypectomy Preoperative diagnosis: Severe symptomatic iron deficiency anemia and Hemoccult-positive stool Anesthesia: MAC Procedure: After informed consent was obtained from the patient was brought into the endoscopy unit and IV sedation was administered by anesthesia under continuous monitoring. Initially upper endoscopy was done. The Olympus GF 160 video endoscope was inserted inserted into the mouth and esophagus intubated without any difficulty and was gradually advanced into the stomach and duodenum and carefully examined. The bulb and second part of the duodenum appeared normal. Biopsies were done from the duodenum to rule out celiac disease. The scope was then withdrawn into the stomach adequately insufflated with air and upon careful examination the antrum and body, cardia and fundus appeared normal. The scope was then withdrawn into the esophagus. The GE junction was located at 40 cm to the incisors. It appeared regular with no erythema erosions or ulcerations. Rest of the esophagus appeared normal. Patient tolerated the procedure well. At this time the patient continued to remain sedation. Initial digital rectal examination was normal. Olympus CF 160 video colonoscope was then inserted into the rectum and gradually advanced to the cecum without any difficulty. Careful examination was performed as the scope was gradually being withdrawn. The prep was excellent. In the base of the cecum there was a 5-6 mm sessile polyp that w as removed by snare polypectomy. The cecum, ascending colon, transverse colon appeared normal. In the descending colon there was another 5 mm polyp that was removed by snare polypectomy., Rest of the descending colon, sigmoid colon and rectum appeared normal. Scattered sigmoid diverticula seen. Retroflexion was performed in the rectum and no lesions were noted. Patient tolerated the procedure well. Impression: 1. Upper endoscopy was within normal limits with no evidence of esophagitis or peptic ulcer disease 2. Colonoscopy revealed 5-6 mm sessile cecal polyp and 5 mm ascending colon p olyp both of which were removed by snare polypectomy and scattered sigmoidal diverticulosis Recommendations: Findings of this examination were discussed with the patient . At this time will await the biopsy results. Diet will be advanced as tolerated. She will be scheduled for a small bowel capsule endoscopy as outpatient basis to evaluate for small bowel source of occult GI blood loss. Eliquis can be resumed today.
[2019-06-11] MEDS ORDERED: VENLAFAXINE HCL ER 150 MG CAP PO SCH (09:00)
--- NOTE | 2019-06-11 11:12 | CONS ---
CONSULTATION REASON FOR CONSULTATION: This is a 74-year-old lady who is admitted to the hospital with symptomatic anemia and Cardiology had been consulted because of history of coronary artery disease and angioplasty. HISTORY OF PRESENT ILLNESS: Patient has history of CAD status post angioplasty and this presentation had a hemoglobin of 6.5 requiring blood transfusion. She has had similar episodes in the past and need blood transfusion. The patient had been on Eliquis which is on hold. The patient underwent EGD and colonoscopy. By the time I evaluated her, the EGD was benign and unremarkable. Colonoscopy showed a polyp that was removed and the patient is to undergo small bowel capsule. The plan is to resume Eliquis in 24 hours. Patient underwent cardiac catheterization in December of 2018 that had stenosis of the mid RCA for which she underwent stent placement. The patient was on aspirin, Plavix along with Eliquis prior to coming in. The aspirin and Plavix are currently on hold here. We will resume when okay with Gastroenterology. PAST MEDICAL HISTORY: Significant for coronary artery disease status post angioplasty, hypothyroidism, diabetes, dyslipidemia, paroxysmal atrial fibrillation. MEDICATIONS: Medications at home include: Lopressor 50 b.i.d., lisinopril 5 daily, Lasix 40 mg in the morning, 20 in the evening, Lipitor 80, Eliquis 5 b.i.d., and Cordarone 200 b.i.d. FAMILY HISTORY: Negative for premature coronary artery disease. SOCIAL HISTORY: Negative for smoking, EtOH abuse or drug abuse. REVIEW OF SYSTEMS: HEENT is unremarkable. Cardiac as described above. Respiratory as described above. GI negative. GENITOURINARY negative. Allergy none. Skin negative. Musculoskeletal significant for arthritis. DERM: Negative. Psychosocial negative. Endocrine negative. Constitutional negative. Oncological negative. GI significant for possible blood loss. Hematological significant for anemia. ALLERGIES: PATIENT IS ALLERGIC TO PROZAC AND GLUTEN AND SULFA. EXAM: At rest afebrile. Heart rate is 78 beats per minute. Blood pressure is 160/50. Respirations 18. Chest exam reveals good air entry bilaterally. Heart exam reveals first and second heart sounds. An S4 is heard. Abdomen is soft. Exam of extremities did not reveal any edema. Peripheral pulses are felt. LABS: Show that the hemoglobin is 7.3, potassium is 4.8, creatinine is 0.98. ASSESSMENT: 1. Acute blood loss anemia. 2. Coronary artery disease, status post angioplasty of mid RCA in December of 2018. 3. History of atrial fibrillation. PLAN: The patient will resume the Eliquis tomorrow. If okay with Gastroenterology, we will resume the antiplatelet agents as soon is we can. She has already had at least 5 months worth of antiplatelet agents at this time. MMODL / IJN: [id number] /
--- NOTE | 2019-06-11 11:26 | P.DS ---
Providers Date of admission: 06/09/19 14:47 Attending physician: Hortencia Houston Consults: 06/09/19 14:48 Consult Physician Urgent Consulting Provider: Shalonda Pena Consult Reason/Comments: EGD and colonoscopy Do you want consulting provider notified?: Yes Primary care physician: Jaxon Monae [facility] Course: This is a pleasant 74-year-old female who presented to the emergency department with increased fatigue. Patient was in the hospital approximately one month ago with similar symptoms and was found to have a hemoglobin of 5.6. At that time patient received 3 blood transfusions. And was sent home with a hemoglobin of greater than 7. Patient was scheduled to have a EGD and colonoscopy however due to scheduling she had not have them performed. Patient denies any black tarry stools or rectal bleeding. Denies any abdominal pain. She is complaining of general weakness and fatigue. Patient states each day she found to be more exhausted and less active. Denies any falling. During previous hospitalization patient was worked up for MDS with chronic anemia. In December 2018 patient had a RCA stent. She was placed on Plavix at that time. She is continued to take Plavix since her hospitalization. Patient is also on eliquis for atrial fibrillation At this time patient is resting in bed in no acute distress. Patient continues to have fatigue and generalized weakness. Denies any black tarry stool or rectal bleeding. Denies any abdominal pain. Patient is scheduled for a scope tomorrow. Patient does have some shortness of breath with activity. She is post transfusion of 1 unit last night with a hemoglobin of 7.3 06/10: Patient underwent upper and lower endoscopic procedure this morning. Which did not reveal any active bleeds. Patient did have a polyp that was removed and sent for biopsy. She will be scheduled to be seen by Dr. Pena an outpatient setting for a small bowel procedure. Patient hemoglobin remained stable at 7.3. Patient denies any discomfort or pain at this time. We will restart her eliquis. Discharge diagnosis: 1. Symptomatic anemia rule out GI bleed, unclear etiology. 2. Hypovolemic shock. 3. SHAUN with dehydration, resolved with fluid bolus. 4. Paroxysmal atrial fibrillation. 5. Recent non-ST elevated myocardial infarction status post heart cath and stenting of RCA December,. 6. History of coronary artery disease with multiple stent placements starting in 1997 and again in 2019. 7. Diabetes mellitus type 2. 8. Hypertension. 9. Hyperlipidemia. 10. Hypothyroidism. 11. Fibromyalgia, stable. 12. History of breast cancer status post bilateral mastectomy. 13. Generalized anxiety disorder and recurrent depression. 14. Obstructive sleep apnea. Discharge disposition home Impression and plan of care have been directed as dictated by the signing physician. Sepideh King nurse practitioner acting as scribe for signing physician. Additional cc: Jaxon Palacios Plan - Discharge Summary Discharge Rx Participant: No New Discharge Prescriptions: New SILVER sulfADIAZINE CREAM [Silvadene Cream] 1 applic TOPICAL DAILY #80 applic Continue Anastrozole [Arimidex] 1 mg PO HS Insulin Detemir (Levemir) [Levemir] 55 unit SQ BID Spironolactone [Aldactone] 25 mg PO DAILY metFORMIN HCL 1,000 mg PO BID Metoprolol Tartrate [Lopressor] 50 mg PO BID Furosemide [Lasix] 40 mg PO DAILY@0800 Furosemide [Lasix] 20 mg PO PC-SUPPER Venlafaxine HCl [Effexor XR] 150 mg PO DAILY Venlafaxine HCl [Effexor XR] 75 mg PO HS Potassium Gluconate 99 mg PO W/SUPPER Melatonin 3 mg PO HS traMADol HCL 50 mg PO TID PRN PRN Reason: Pain Lisinopril [Zestril] 5 mg PO DAILY Levothyroxine Sodium [Synthroid] 75 mcg PO DAILY Gabapentin 600 mg PO Q6HR Levothyroxine Sodium [Synthroid] 200 mcg PO DAILY Dulaglutide [Trulicity] 1.5 mg SQ WE Apixaban [Eliquis] 5 mg PO BID #60 tab Atorvastatin [Lipitor] 80 mg PO HS #30 tab Nitroglycerin Sl Tabs [Nitrostat] 0.4 mg SUBLINGUAL Q5M PRN #25 tab PRN Reason: Chest Pain Clopidogrel [Plavix] 75 mg PO DAILY #30 tab Cyanocobalamin [Vitamin B-12] 500 mcg PO PC-SUPPER Vitamin D3+K2 Dots 1000iu-90mcg Odt Tab 1 tab PO DAILY Amiodarone [Cordarone] 200 mg PO BID Potassium Bicarb/Sodium Bicarb/Citric Acid 1 tab PO DAILY INSULIN LISPRO (humaLOG) [humaLOG] 30 units SQ AC-TID INSULIN LISPRO (humaLOG) [humaLOG] See Protocol SQ AC-TID Discontinued Cefuroxime Axetil [Ceftin] 500 mg PO BID 7 Days #14 tab Discharge Medication List Anastrozole [Arimidex] 1 mg PO HS 01/01/14 [History] Insulin Detemir (Levemir) [Levemir] 55 unit SQ BID 01/01/14 [History] Spironolactone [Aldactone] 25 mg PO DAILY 01/01/14 [History] metFORMIN HCL 1,000 mg PO BID 01/01/14 [History] Dulaglutide [Trulicity] 1.5 mg SQ WE 01/20/19 [History] Furosemide [Lasix] 20 mg PO PC-SUPPER 01/20/19 [History] Furosemide [Lasix] 40 mg PO DAILY@0800 01/20/19 [History] Gabapentin 600 mg PO Q6HR 01/20/19 [History] Levothyroxine Sodium [Synthroid] 75 mcg PO DAILY 01/20/19 [History] Levothyroxine Sodium [Synthroid] 200 mcg PO DAILY 01/20/19 [History] Lisinopril [Zestril] 5 mg PO DAILY 01/20/19 [History] Melatonin 3 mg PO HS 01/20/19 [History] Metoprolol Tartrate [Lopressor] 50 mg PO BID 01/20/19 [History] Potassium Gluconate 99 mg PO W/SUPPER 01/20/19 [History] Venlafaxine HCl [Effexor XR] 75 mg PO HS 01/20/19 [History] Venlafaxine HCl [Effexor XR] 150 mg PO DAILY 01/20/19 [History] traMADol HCL 50 mg PO TID PRN 01/20/19 [History] Apixaban [Eliquis] 5 mg PO BID #60 tab 01/24/19 [Rx] Atorvastatin [Lipitor] 80 mg PO HS #30 tab 01/24/19 [Rx] Clopidogrel [Plavix] 75 mg PO DAILY #30 tab 01/24/19 [Rx] Nitroglycerin Sl Tabs [Nitrostat] 0.4 mg SUBLINGUAL Q5M PRN #25 tab 01/24/19 [Rx] Amiodarone [Cordarone] 200 mg PO BID 05/03/19 [History] Cyanocobalamin [Vitamin B-12] 500 mcg PO PC-SUPPER 05/03/19 [History] INSULIN LISPRO (humaLOG) [humaLOG] 30 units SQ AC-TID 05/03/19 [History] INSULIN LISPRO (humaLOG) [humaLOG] See Protocol SQ AC-TID 05/03/19 [History] Potassium Bicarb/Sodium Bicarb/Citric Acid 1 tab PO DAILY 05/03/19 [History] Vitamin D3+K2 Dots 1000iu-90mcg Odt Tab 1 tab PO DAILY 05/03/19 [History] SILVER sulfADIAZINE CREAM [Silvadene Cream] 1 applic TOPICAL DAILY #80 applic 06/11/19 [Rx] Follow up Appointment(s)/Referral(s): Shalonda Pena MD [STAFF PHYSICIAN] - 1 Week (Outpatient small bowel) Jaxon Palacios MD [Primary Care Provider] - 1-2 days Patient Instructions/Handouts: Anemia (DC)
[2019-06-11 12:20] LABS: Glucose,Whole Blood 202 mg/dL (75-99)
== END 2019-06-11 12:36 | disposition home or self-care (01) | DRG 377 ==
LOC: EC 12:11 → 6NMEDSUR 14:47
PROVIDERS: ADMIT Family Medicine; ATTEND Family Medicine
PROC: 0DBM8ZZ Excision of Descending Colon, Via Natural or Artificial Opening Endoscopic (ICD-10-PCS; 2019-06-11)
PROC: 0DB98ZX Excision of Duodenum, Via Natural or Artificial Opening Endoscopic, Diagnostic (ICD-10-PCS; principal; 2019-06-11 08:00)
PROC: 0DBH8ZZ Excision of Cecum, Via Natural or Artificial Opening Endoscopic (ICD-10-PCS; 2019-06-11 08:00)
DX: K92.2 Gastrointestinal hemorrhage, unspecified (principal); R57.1 Hypovolemic shock; D62 Acute posthemorrhagic anemia; N17.9 Acute kidney failure, unspecified; F33.9 Major depressive disorder, recurrent, unspecified; Z68.42 Body mass index [BMI] 45.0-49.9, adult; I48.0 Paroxysmal atrial fibrillation; I25.10 Atherosclerotic heart disease of native coronary artery without angina pectoris; E11.9 Type 2 diabetes mellitus without complications; I10 Essential (primary) hypertension; E78.5 Hyperlipidemia, unspecified; E03.9 Hypothyroidism, unspecified; M79.7 Fibromyalgia; F41.1 Generalized anxiety disorder; G47.33 Obstructive sleep apnea (adult) (pediatric); E66.9 Obesity, unspecified; M19.90 Unspecified osteoarthritis, unspecified site; D12.0 Benign neoplasm of cecum; L53.8 Other specified erythematous conditions; K57.30 Diverticulosis of large intestine without perforation or abscess without bleeding; D12.4 Benign neoplasm of descending colon; M79.2 Neuralgia and neuritis, unspecified; I25.2 Old myocardial infarction; Z79.4 Long term (current) use of insulin; Z79.899 Other long term (current) drug therapy; Z79.890 Hormone replacement therapy; Z79.01 Long term (current) use of anticoagulants; Z79.02 Long term (current) use of antithrombotics/antiplatelets; Z79.811 Long term (current) use of aromatase inhibitors; Z95.5 Presence of coronary angioplasty implant and graft; Z85.3 Personal history of malignant neoplasm of breast; Z90.13 Acquired absence of bilateral breasts and nipples; Z87.891 Personal history of nicotine dependence; Z90.49 Acquired absence of other specified parts of digestive tract; Z91.048 Other nonmedicinal substance allergy status; Z88.2 Allergy status to sulfonamides; Z91.018 Allergy to other foods; Z82.49 Family history of ischemic heart disease and other diseases of the circulatory system; Z83.3 Family history of diabetes mellitus
CPT/HCPCS: 36415; 43239; 45385; 71046; 80048; 80053; 81001; 82550; 83605; 83735; 83880; 84484; 85025; 85610; 85730; 86850; 86900; 86901; 86920; 88305; 93005; 96374; 99285

== ENCOUNTER 2019-11-06 22:23 | Inpatient (IN) | payer MEDICARE ==
[2019-11-06] MEDS ORDERED: FUROSEMIDE 10 MG/ML 4 ML VIAL IV STA (22:44)
--- NOTE | 2019-11-06 23:15 | ED ---
SOB HPI - General Chief Complaint: Shortness of Breath Stated Complaint: JHONNY Time Seen by Provider: 11/06/19 22:28 Source: patient Mode of arrival: EMS Limitations: no limitations - History of Present Illness Initial Comments: Lorena is a morbidly obese 74-year-old female with extensive past medical history including heart failure, diabetes, recurrent anemia. Patient presents the ER today via EMS for evaluation of shortness of breath. Patient reports she called 911 because she couldn't catch her breath. She denies any associated chest pain, palpitations, fever, cough or illness. She states she is just progressively gotten more short of breath but today it was unbearable she feels like she is drowning. Patient reports she is a former smoker but has no history of COPD doesn't use any inhalers. - Related Data Home Medications Medication Instructions Recorded Confirmed RX: Anastrozole [Arimidex] 1 mg PO HS 01/01/14 06/09/19 RX: Insulin Detemir (Levemir) 55 unit SQ BID 01/01/14 06/09/19 [Levemir] RX: Spironolactone [Aldactone] 25 mg PO DAILY 01/01/14 06/09/19 RX: metFORMIN HCL 1,000 mg PO BID 01/01/14 06/09/19 RX: Dulaglutide [Trulicity] 1.5 mg SQ WE 01/20/19 06/09/19 RX: Furosemide [Lasix] 20 mg PO PC-SUPPER 01/20/19 06/09/19 RX: Furosemide [Lasix] 40 mg PO DAILY@0800 01/20/19 06/09/19 RX: Gabapentin 600 mg PO Q6HR 01/20/19 06/10/19 RX: Levothyroxine Sodium 75 mcg PO DAILY 01/20/19 06/09/19 [Synthroid] RX: Levothyroxine Sodium 200 mcg PO DAILY 01/20/19 06/09/19 [Synthroid] RX: Melatonin 3 mg PO HS 01/20/19 06/09/19 RX: Metoprolol Tartrate [Lopressor] 50 mg PO BID 01/20/19 06/09/19 RX: Potassium Gluconate 99 mg PO W/SUPPER 01/20/19 06/09/19 RX: Venlafaxine HCl [Effexor XR] 75 mg PO HS 01/20/19 06/09/19 RX: Venlafaxine HCl [Effexor XR] 150 mg PO DAILY 01/20/19 06/09/19 RX: lisinopriL [Zestril] 5 mg PO DAILY 01/20/19 06/09/19 RX: traMADol HCL 50 mg PO TID PRN 01/20/19 06/09/19 Potassium Bicarb/Sodium 1 tab PO DAILY 05/03/19 06/09/19 Bicarb/Citric Acid RX: Amiodarone [Cordarone] 200 mg PO BID 05/03/19 06/09/19 RX: Cyanocobalamin [Vitamin B-12] 500 mcg PO PC-SUPPER 05/03/19 06/09/19 RX: INSULIN LISPRO (humaLOG) 30 units SQ AC-TID 05/03/19 06/09/19 [humaLOG] RX: INSULIN LISPRO (humaLOG) See Protocol SQ AC-TID 05/03/19 06/09/19 [humaLOG] Vitamin D3+K2 Dots 1000iu-90mcg 1 tab PO DAILY 05/03/19 06/09/19 Odt Tab Previous Rx's Medication Instructions Recorded RX: Apixaban [Eliquis] 5 mg PO BID #60 tab 01/24/19 RX: Atorvastatin [Lipitor] 80 mg PO HS #30 tab 01/24/19 RX: Clopidogrel [Plavix] 75 mg PO DAILY #30 tab 01/24/19 RX: Nitroglycerin Sl Tabs 0.4 mg SUBLINGUAL Q5M PRN #25 tab 01/24/19 [Nitrostat] RX: SILVER sulfADIAZINE CREAM 1 applic TOPICAL DAILY #80 applic 06/11/19 [Silvadene Cream] Allergies Allergy/AdvReac Type Severity Reaction Status Date / Time fluoxetine HCl [From Prozac] Allergy Itching Verified 06/09/19 16:42 gluten Allergy Abdominal Verified 06/09/19 16:42 Pain Sulfa (Sulfonamide Allergy Itching Verified 06/09/19 16:42 Antibiotics) Review of Systems ROS Statement: Those systems with pertinent positive or pertinent negative responses have been documented in the HPI. ROS Other: All systems not noted in ROS Statement are negative. Past Medical History Past Medical History: Atrial Fibrillation, Cancer, Diabetes Mellitus, Hypertension, Sleep Apnea/CPAP/BIPAP, Thyroid Disorder Additional Past Medical History / Comment(s): Heart disease, ocular neuritis History of Any Multi-Drug Resistant Organisms: None Reported Past Surgical History: Appendectomy, Breast Surgery, Cholecystectomy, Heart Catheterization With Stent Additional Past Surgical History / Comment(s): bilateral masectomy, heart cath follow up in 2000 Past Anesthesia/Blood Transfusion Reactions: No Reported Reaction Date of Last Stent Placement:: 1997 Past Psychological History: No Psychological Hx Reported Smoking Status: Never smoker Past Alcohol Use History: None Reported Past Drug Use History: None Reported - Past Family History Father Family Medical History: Coronary Artery Disease (CAD), Hypertension, Myocardial Infarction ([place]) Additional Family Medical History / Comment(s): Father at age 72 from coronary artery disease with history of diabetes Mother Family Medical History: Coronary Artery Disease (CAD) Additional Family Medical History / Comment(s): Mother at age 72 with history of coronary artery disease and diabetes. Sister(s) Additional Family Medical History / Comment(s): Patient has 1 sister with no major medical problems. Patient does not have. His. Patient has 1 daughter with no major medical problems. No history of breast cancer. General Exam - General Exam Comments Initial Comments: Physical Exam GENERAL: Morbidly obese female in moderate respiratory distress HENT: Normocephalic, Atraumatic. EYES: PERRL, EOMI Conjunctival pallor PULMONARY: Rales in all lung hickey CARDIOVASCULAR: RRR ABDOMEN: Obese, soft SKIN: Pale, no rash : Deferred NEUROLOGIC: Patient is alert and oriented x3. Moving all extremities spontaneously MUSCULOSKELETAL: Normal extremities with adequate strength and full range of motion. PSYCHIATRIC: Appropriate situational anxiety Limitations: no limitations Course Vital Signs 11/06/19 11/07/19 11/07/19 22:30 01:03 01:13 Temperature 98.1 F 98.0 F 97.9 F Pulse Rate 80 78 73 Respiratory 18 22 22 Rate Blood Pressure 119/85 165/60 147/58 O2 Sat by Pulse 95 99 99 Oximetry Medical Decision Making - Medical Decision Making She was seen and evaluated immediately upon arrival to the emergency department, patient was noted to be mildly hypoxic and in moderate respiratory distress with very wet lungs sounds concerning for a CHF exacerbation Patient placed on bipap Labs obtained EKG obtained noted to have significant respiratory artifact, EKG obtained at 2248, rate as a narrow complex regular rhythm T waves can be discerned due to respiratory artifact, there is ST depressions laterally most notable in V3 through 6, no obvious ST depressions. This is likely demand ischemia secondary to hypoxia. Patient was reevaluated after being on BiPAP for 30 minutes, she is resting much more comfortably, no more shortness breath oxygen saturation 98-100% Labs with multiple abnormalities is notable for profound anemia with a hemoglobin of 5, type and screen and transfusion were ordered patient is agreeable to transfusion she had a transfusion in May and at that time for EGD and colonoscopy with no identification of cause of bleeding Lactic acid elevated - likely related to hypoxia and difficulty vascular access Patient continues to rest comfortably on bipap, plan for admission discussed with patient and daughter at bedside who are agreeable to plan for admission, patient confirms she is DNR, agreeable to IV medications, blood, no intubation or resuscitation Patient tolerating blood transfusion well with no difficulty, remained hemodynamically stable Patient care discussed with Dr. Holliday who accepts the admission - Lab Data Result diagrams: 11/06/19 23:10 11/06/19 23:02 Lab Results 11/06/19 11/06/19 11/06/19 Range/Units 23:02 23:02 23:02 WBC (3.8-10.6) k/uL RBC (3.80-5.40) m/uL Hgb (11.4-16.0) gm/dL Hct (34.0-46.0) % MCV (80.0-100.0) fL MCH (25.0-35.0) pg MCHC (31.0-37.0) g/dL RDW (11.5-15.5) % Plt Count (150-450) k/uL Neutrophils % % Lymphocytes % % Monocytes % % Eosinophils % % Basophils % % Neutrophils # (1.3-7.7) k/uL Lymphocytes # (1.0-4.8) k/uL Monocytes # (0-1.0) k/uL Eosinophils # (0-0.7) k/uL Basophils # (0-0.2) k/uL Manual Slide Review Polychromasia Hypochromasia Poikilocytosis Anisocytosis Anisocytosis (manual) Macrocytosis Ovalocytes PT 10.7 (9.0-12.0) sec INR 1.0 (<1.2) APTT 17.7 L (22.0-30.0) sec Sodium 134 L (137-145) mmol/L Potassium 5.3 H (3.5-5.1) mmol/L Chloride 105 (98-107) mmol/L Carbon Dioxide 15 L (22-30) mmol/L Anion Gap 14 mmol/L BUN 36 H (7-17) mg/dL Creatinine 1.47 H (0.52-1.04) mg/dL Est GFR (CKD-EPI)AfAm 40 (>60 ml/min/1.73 sqM) Est GFR (CKD-EPI)NonAf 35 (>60 ml/min/1.73 sqM) Glucose 405 H (74-99) mg/dL Plasma Lactic Acid Jeffry 7.8 H* (0.7-2.0) mmol/L Calcium 8.6 (8.4-10.2) mg/dL Total Bilirubin 0.4 (0.2-1.3) mg/dL AST 27 (14-36) U/L ALT 33 (4-34) U/L Alkaline Phosphatase 85 (38-126) U/L Troponin I (0.000-0.034) ng/mL NT-Pro-B Natriuret Pep pg/mL Total Protein 6.2 L (6.3-8.2) g/dL Albumin 3.7 (3.5-5.0) g/dL Blood Type Blood Type Recheck Bld Type Recheck Status Antibody Screen Crossmatch Spec Expiration Date 11/06/19 11/06/19 11/06/19 Range/Units 23:02 23:02 23:10 WBC 10.2 (3.8-10.6) k/uL RBC 1.37 L (3.80-5.40) m/uL Hgb 5.0 L* (11.4-16.0) gm/dL Hct 16.6 L* (34.0-46.0) % MCV 121.2 H (80.0-100.0) fL MCH 36.4 H (25.0-35.0) pg MCHC 30.1 L (31.0-37.0) g/dL RDW 20.2 H (11.5-15.5) % Plt Count 97 L (150-450) k/uL Neutrophils % 69 % Lymphocytes % 20 % Monocytes % 7 % Eosinophils % 2 % Basophils % 0 % Neutrophils # 7.1 (1.3-7.7) k/uL Lymphocytes # 2.1 (1.0-4.8) k/uL Monocytes # 0.7 (0-1.0) k/uL Eosinophils # 0.2 (0-0.7) k/uL Basophils # 0.0 (0-0.2) k/uL Manual Slide Review Performed Polychromasia Present Hypochromasia Marked Poikilocytosis Moderate Anisocytosis Moderate Anisocytosis (manual) Present Macrocytosis Marked A Ovalocytes Present PT (9.0-12.0) sec INR (<1.2) APTT (22.0-30.0) sec Sodium (137-145) mmol/L Potassium (3.5-5.1) mmol/L Chloride (98-107) mmol/L Carbon Dioxide (22-30) mmol/L Anion Gap mmol/L BUN (7-17) mg/dL Creatinine (0.52-1.04) mg/dL Est GFR (CKD-EPI)AfAm (>60 ml/min/1.73 sqM) Est GFR (CKD-EPI)NonAf (>60 ml/min/1.73 sqM) Glucose (74-99) mg/dL Plasma Lactic Acid Jeffry (0.7-2.0) mmol/L Calcium (8.4-10.2) mg/dL Total Bilirubin (0.2-1.3) mg/dL AST (14-36) U/L ALT (4-34) U/L Alkaline Phosphatase (38-126) U/L Troponin I 0.069 H* (0.000-0.034) ng/mL NT-Pro-B Natriuret Pep 1110 pg/mL Total Protein (6.3-8.2) g/dL Albumin (3.5-5.0) g/dL Blood Type Blood Type Recheck Bld Type Recheck Status Antibody Screen Crossmatch Spec Expiration Date 11/06/19 Range/Units 23:40 WBC (3.8-10.6) k/uL RBC (3.80-5.40) m/uL Hgb (11.4-16.0) gm/dL Hct (34.0-46.0) % MCV (80.0-100.0) fL MCH (25.0-35.0) pg MCHC (31.0-37.0) g/dL RDW (11.5-15.5) % Plt Count (150-450) k/uL Neutrophils % % Lymphocytes % % Monocytes % % Eosinophils % % Basophils % % Neutrophils # (1.3-7.7) k/uL Lymphocytes # (1.0-4.8) k/uL Monocytes # (0-1.0) k/uL Eosinophils # (0-0.7) k/uL Basophils # (0-0.2) k/uL Manual Slide Review Polychromasia Hypochromasia Poikilocytosis Anisocytosis Anisocytosis (manual) Macrocytosis Ovalocytes PT (9.0-12.0) sec INR (<1.2) APTT (22.0-30.0) sec Sodium (137-145) mmol/L Potassium (3.5-5.1) mmol/L Chloride (98-107) mmol/L Carbon Dioxide (22-30) mmol/L Anion Gap mmol/L BUN (7-17) mg/dL Creatinine (0.52-1.04) mg/dL Est GFR (CKD-EPI)AfAm (>60 ml/min/1.73 sqM) Est GFR (CKD-EPI)NonAf (>60 ml/min/1.73 sqM) Glucose (74-99) mg/dL Plasma Lactic Acid Jeffry (0.7-2.0) mmol/L Calcium (8.4-10.2) mg/dL Total Bilirubin (0.2-1.3) mg/dL AST (14-36) U/L ALT (4-34) U/L Alkaline Phosphatase (38-126) U/L Troponin I (0.000-0.034) ng/mL NT-Pro-B Natriuret Pep pg/mL Total Protein (6.3-8.2) g/dL Albumin (3.5-5.0) g/dL Blood Type A Positive Blood Type Recheck A Pos Bld Type Recheck Status No Antibody Screen NEGATIVE Crossmatch See Detail Spec Expiration Date 11/09/2019 - 234 Critical Care Time Critical Care Time: Yes Total Critical Care Time: 35 Critical Care Time: Critical care time was exclusive of separately billable procedures and treating other patients and teaching time. Critical care was necessary to treat or prevent imminent or life-threatening deterioration. Given the critical condition in which the patient arrived, the patient was immediately assessed by myself and the nurse, and cardiac monitoring initiated due to the potential for rapid decompensation of the patient's clinical condition. During the course of the patients stay, I spent a considerable amount of time at the bedside performing serial re-evaluations of the patient's hemodynamic and clinical status because of the recognized potential threat to life or limb in this condition. I then had a chance to review not only all of the available current laboratory and radiographic studies obtained today, but I also reviewed old records available to me at the time. Additionally, any ancillary information available including data solutions architect records were reviewed. Sequential vital signs were obtained. Disposition Clinical Impression: Congestive heart failure, Acute pulmonary edema, Symptomatic anemia Disposition: ADMITTED IP TO THIS [facility] Condition: Serious Is patient prescribed a controlled substance at d/c from ED?: No
[2019-11-06 23:29] LABS: Anisocytosis Moderate; Basophils % (A) 0 %; Eosinophils # (A) 0.2 k/uL (0-0.7); Eosinophils % (A) 2 %; Hypochromasia Marked; Lymphocytes # (A) 2.1 k/uL (1.0-4.8); Lymphocytes % (A) 20 %; MCH 36.4 pg (25.0-35.0); MCHC 30.1 g/dL (31.0-37.0); MCV 121.2 fL (80.0-100.0); Macrocytosis Marked; Mean Platelet Volume 9.2; Monocytes # (A) 0.7 k/uL (0-1.0); Monocytes % (A) 7 %; Neutrophils # (A) 7.1 k/uL (1.3-7.7); Neutrophils % (A) 69 %; Poikilocytosis Moderate; RBC 1.37 m/uL (3.80-5.40); RDW 20.2 % (11.5-15.5); WBC 10.2 k/uL (3.8-10.6)
[2019-11-06 23:32] LABS: HCT 16.6 % (34.0-46.0)
[2019-11-06 23:35] LABS: Albumin 3.7 g/dL (3.5-5.0); Calcium 8.6 mg/dL (8.4-10.2); Potassium 5.3 mmol/L (3.5-5.1); Total Bilirubin 0.4 mg/dL (0.2-1.3); Total Protein 6.2 g/dL (6.3-8.2)
[2019-11-06] MEDS ORDERED: INSULIN REGULAR 100 UNIT/ML VIAL SQ ONE (23:48)
--- NOTE | 2019-11-06 23:48 | XR ---
EXAMINATION TYPE: XR chest 1V portable DATE OF EXAM: 11/06/2019 COMPARISON: 06/09/2019 HISTORY: Short of breath chest pain TECHNIQUE: Single view FINDINGS: Heart appears enlarged. There is mild pulmonary interstitial edema. There are chest leads. I see no definite pleural effusion. IMPRESSION: There is mild pulmonary interstitial edema that is a change compared to old exam and coul d relate to mild acute heart failure.
[2019-11-06] MEDS ORDERED: NALOXONE 0.4 MG/ML 1 ML VIAL IV PRN (23:49)
[2019-11-06] MEDS ORDERED: ACETAMINOPHEN TAB 325 MG TAB PO PRN (23:49)
[2019-11-06 23:50] LABS: Prothrombin Time 10.7 sec (9.0-12.0)
[2019-11-06 23:57] LABS: Partial Thromboplastin Time 17.7 sec (22.0-30.0)
[2019-11-07 00:09] LABS: Anisocytosis (M) Present; Ovalocytes Present; Polychromasia Present
[2019-11-07 00:10] LABS: Platelet Count 97 k/uL (150-450)
[2019-11-07] MEDS ORDERED: FUROSEMIDE 10 MG/ML 2 ML VIAL IV ONE (03:39)
[2019-11-07 08:21] LABS: Glucose,Whole Blood 176 mg/dL (75-99)
[2019-11-07 08:41] LABS: Anisocytosis Marked; Basophils % (A) 0 %; Eosinophils # (A) 0.2 k/uL (0-0.7); Eosinophils % (A) 2 %; HCT 20.9 % (34.0-46.0); HGB 6.9 gm/dL (11.4-16.0); Hypochromasia Moderate; Lymphocytes # (A) 1.1 k/uL (1.0-4.8); Lymphocytes % (A) 11 %; MCH 34.2 pg (25.0-35.0); MCHC 33.1 g/dL (31.0-37.0); Macrocytosis Marked; Mean Platelet Volume 8.7; Monocytes # (A) 0.8 k/uL (0-1.0); Monocytes % (A) 9 %; Neutrophils # (A) 7.2 k/uL (1.3-7.7); Neutrophils % (A) 77 %; Poikilocytosis Marked; RBC 2.02 m/uL (3.80-5.40); RDW 24.6 % (11.5-15.5); WBC 9.4 k/uL (3.8-10.6)
[2019-11-07 08:42] LABS: MCV 103.3 fL (80.0-100.0); Platelet Count 75 k/uL (150-450)
[2019-11-07] MEDS: INSULIN ASPART (NovoLOG) 100 UNIT/ML VIAL SQ SCH ×4 (08:57→20:42)
[2019-11-07] MEDS ORDERED: PANTOPRAZOLE 40 MG/10 ML VIAL IV SCH (09:00)
[2019-11-07 09:21] LABS: Polychromasia Present
[2019-11-07] MEDS ORDERED: NITROGLYCERIN SL TABS 0.4 MG TAB SUBLINGUAL PRN (09:50)
[2019-11-07] MEDS ORDERED: FUROSEMIDE 10 MG/ML 4 ML VIAL IV STA (09:50)
[2019-11-07] MEDS ORDERED: GABAPENTIN 300 MG CAP PO PRN (09:50)
[2019-11-07] MEDS ORDERED: CLOTRIMAZOLE 1% CREAM 15 GM TUBE TOPICAL PRN (09:50)
[2019-11-07] MEDS ORDERED: traMADol 50 MG TAB PO PRN (09:50)
[2019-11-07] MEDS ORDERED: PANTOPRAZOLE 40 MG/10 ML VIAL IVP SCH (10:00)
[2019-11-07] MEDS: SPIRONOLACTONE 25 MG TAB PO SCH (11:04)
--- NOTE | 2019-11-07 11:07 | P.HPIM ---
History of Present Illness H&P Date: 11/07/19 Chief Complaint: Shortness of breath History of Present Illness This is a 74-year-old female patient of Dr. Palacios and Dr. Raymundo Pena with past medical history of coronary artery disease status post stent December 2018 with previous stent in 1997, paroxysmal atrial fibrillation, diabetes mellitus type 2, insulin requiring, fibromyalgia, hypertension, hyperlipidemia, hypothyroidism, obstructive sleep apnea on CPAP, history of right breast cancer status post bilateral mastectomy currently on Arimidex, morbid obesity with BMI of 45, generalized anxiety disorder and recurrent depression, anemia of chronic disease. Her last hospitalization was in May of this year which time she presented with severe symptomatic anemia with a hemoglobin of 5.3 status post blood transfusion. She had a previous episode 1 month before and presented with a hemoglobin of 5.6. On June 10, patient underwent EGD with biopsy and colonoscopy with snare polypectomy. Upper endoscopy was within normal limits with no evidence of esophagitis or peptic ulcer disease. Colonoscopy revealed a 5-6 mm sessile cecal polyp and a 5 mm ascending colon polyp both of which were removed by snare polypectomy and scattered sigmoidal diverticulosis. Descending colon polyp was tubular adenoma. Cecal polyp tubulovillous adenoma. Duodenal biopsy unremarkable. Patient presents to hospital due to shortness of breath. She denies having any chest pain, palpitations. No fever chills cough. No nausea or vomiting. She denies having any black stools. She states her lower extremity edema is at her baseline no change. Patient came into [facility] emergency center for evaluation initial hemoglobin 5.0, platelet count 97. Sodium 134, potassium 5.3, chloride 105, CO2 15, BUN 36 and creatinine 1.47. Blood sugar 405. Troponin 0.069. ProBNP 1110. EKG with junctional rhythm with PVCs. Chest x-ray reveals mild pulmonary interstitial edema that is a change compared to old exam from May 2019. Could relate to mild acute heart failure. Patient was given 2 doses of IV Lasix started on Protonix, admitted to the [facility] floor. A repeat hemoglobi n after 2 units of packed RBCs is 6.9 and patient will be transfused one more unit. Consults with GI, cardiology and hematology. Review of Systems Constitutional: No fever, no chills, no night sweats. No weight change. Reports weakness, Reports fatigue Reports lethargy. No daytime sleepiness. EENT: No headache. No blurred vision or double vision, no loss of vision. No loss of Hearing, no ringing in the ears, no dizziness. No nasal drainage or congestion. No epistaxis. No sore throat. Lungs: Reports shortness of breath, no cough, no sputum production. No whee zing. Cardiovascular: No chest pain, Reports lower extremity edema. No palpitations. No paroxysmal nocturnal dyspnea. Reports orthopnea. No lightheadedness or dizziness. No syncopal episodes. Abdominal: No abdominal pain. No nausea, vomiting. No diarrhea. No constipation. No bloody or tarry stools. No loss of appetite. Genitourinary: No dysuria, increased frequency, urgency. No urinary retention. Musculoskeletal: No myalgias. Reports muscle weakness, no gait dysfunction, no frequent falls. No back pain. No neck pain. Integumentary: No wounds, no lesions. No rash or pruritus. No unusual bruising. No change in hair or nails. Neurologic: No aphasia. No facial droop. No change in mentation. No head injury. No headache. No paralysis. No paresthesia. Psychiatric: No depression. No anxiety. No mood swings. Endocrine: No abnormal blood sugars. No weight change. No excessive sweating or thirst. No cold intolerance. Physical Examination Gen: This is a morbidly obese 74-year-old female. She is sitting on the edge of the stretcher in the ER and appears to be in no acute distress. HEENT: Head is atraumatic, normocephalic. Pupils equal, round. Sclerae is anicteric. NECK: Supple. No JVD. No lymphadenopathy. No thyromegaly. LUNGS: Clear to auscultation. No wheezes or rhonchi. No intercostal retractions. HEART: Regular rate and rhythm. No murmur. ABDOMEN: Soft. Bowel sounds are present. No masses. No abdominal tenderness. EXTREMITIES: 1+ bilateral pedal edema. No calf tenderness. NEUROLOGICAL: Patient is awake, alert and oriented x3. Cranial nerves 2 through 12 are grossly intact. Assessment and Plan 1. Severe anemia status post transfusion of 2 units packed RBCs, unclear etiology. Patient has had previous workup on other admissions. Consult placed with Dr. Baker and Dr. Siddiqui. The patient has chronic anemia along with macrocytosis, thrombocytopenia. Maintain nothing by mouth status. Plavix, eliquis on hold. Protonix 40 mg IV push twice daily. 2. Acute diastolic heart failure. Start Lasix 40 mg IV every 12 hours, daily weights and I&O, daily electrolytes and renal function. Continue lisinopril 5 mg daily, metoprolol tartrate 50 mg twice daily, Aldactone 25 mg daily. Cardio logy consult. 3. Acute kidney injury with chronic kidney disease stage III. Avoid nephrotoxic agents. Continue lisinopril and Lasix for now. Monitor renal function daily. 4. Rule out underlying MDS with chronic anemia, thrombocytopenia and macrocytosis. Consult with Dr. Siddiqui. 5. Paroxysmal atrial fibrillation. No anticoagulation due to history of GI bleed. Continue amiodarone 200 mg twice daily, Lopressor 50 mg twice daily. Cardiology consult. 6. History of coronary artery disease with with multiple stent placements starting in 1997. Aspirin 81 mg daily, Plavix 75 mg daily--on hold. Continue Lopressor. 7. Diabetes mellitus type 2, insulin requiring, uncontrolled with hyper glycemia. Continue Levemir 20 units twice daily which is reduced from 40 units twice daily, continue NovoLog scale before meals and at bedtime. 8. Hypertension. Continue lisinopril 5 mg daily. 9. Hyperlipidemia. Continue atorvastatin 80 mg at bedtime. 10. Hypothyroidism. Continue levothyroxine 275 mg daily. 11. Fibromyalgia, stable. 12. History of breast cancer status post bilateral mastectomy. Continue Arimidex. 13. Generalized anxiety disorder and recurrent depression. Continue Effexor XR 150 mg the morning and 75 mg at bedtime. 14. Obstructive sleep apnea. Continue CPAP. 15. GI prophylaxis. Protonix IV twice daily. 16. DVT prophylaxis. SCD and LYNN hose 17. COVID-19 testing. CODE STATUS: No code Patient will be admitted to the hospital for a minimum of 2 night stay. Discharge plan: Most likely return home. Possible home care or subacute rehab need. PT and OT will be added. Impression and plan of care have been directed as dictated by the signing rosalinda kirby. Abril Riley nurse practitioner acting as scribe for signing physician. Past Medical History Past Medical History: Atrial Fibrillation, Cancer, Diabetes Mellitus, Hypertension, Sleep Apnea/CPAP/BIPAP, Thyroid Disorder Additional Past Medical History / Comment(s): Heart disease, ocular neuritis History of Any Multi-Drug Resistant Organisms: None Reported Past Surgical History: Appendectomy, Breast Surgery, Cholecystectomy, Heart Catheterization With Stent Additional Past Surgical History / Comment(s): bilateral masectomy, heart cath follow up in 2000 Past Anesthesia/Blood Transfusion Reactions: No Reported Reaction Date of Last Stent Placement:: 1997 Past Psychological History: No Psychological Hx Reported Smoking Status: Former smoker, Never smoker Past Alcohol Use History: None Reported Additional Past Alcohol Use History / Comment(s): Patient was a smoker of 4 packs per day for 20 years and quit approximately 20 years ago. She denies any marijuana, illicit drug use. No alcohol use. She was at home with her daughter. She does have a CPAP and nebulizer. Patient is . Past Drug Use History: None Reported - Past Family History Father Family Medical History: Coronary Artery Disease (CAD), Hypertension, Myocardial Infarction (OK) Additional Family Medical History / Comment(s): Father at age 72 from coronary artery disease with history of diabetes Mother Family Medical History: Coronary Artery Disease (CAD) Additional Family Medical History / Comment(s): Mother at age 72 with history of coronary artery disease and diabetes. Sister(s) Additional Family Medical History / Comment(s): Patient has 1 sister with no major medical problems. Patient does not have. His. Patient has 1 daughter with no major medical problems. No history of breast cancer. Medications and Allergies Home Medications Medication Instructions Recorded Confirmed Type Anastrozole [Arimidex] 1 mg PO HS 01/01/14 11/07/19 History Insulin Detemir (Levemir) [Levemir] 40 unit SQ BID 01/01/14 11/07/19 History Spironolactone [Aldactone] 25 mg PO DAILY 01/01/14 11/07/19 History metFORMIN HCL 1,000 mg PO BID 01/01/14 11/07/19 History Furosemide [Lasix] 20 mg PO PC-SUPPER 01/20/19 11/07/19 History Furosemide [Lasix] 40 mg PO DAILY@0800 01/20/19 11/07/19 History Gabapentin 600 mg PO Q6H PRN 01/20/19 11/07/19 History Levothyroxine Sodium [Synthroid] 75 mcg PO DAILY 01/20/19 11/07/19 History Levothyroxine Sodium [Synthroid] 200 mcg PO DAILY 01/20/19 11/07/19 History Melatonin 3 mg PO HS 01/20/19 11/07/19 History Metoprolol Tartrate [Lopressor] 50 mg PO BID 01/20/19 11/07/19 History Venlafaxine HCl [Effexor XR] 75 mg PO HS 01/20/19 11/07/19 History Venlafaxine HCl [Effexor XR] 150 mg PO DAILY 01/20/19 11/07/19 History lisinopriL [Zestril] 5 mg PO DAILY 01/20/19 11/07/19 History traMADol HCL 50 mg PO TID PRN 01/20/19 11/07/19 History Atorvastatin [Lipitor] 80 mg PO HS #30 tab 01/24/19 11/07/19 Rx Clopidogrel [Plavix] 75 mg PO DAILY #30 tab 01/24/19 11/07/19 Rx Nitroglycerin Sl Tabs [Nitrostat] 0.4 mg SUBLINGUAL Q5M PRN #25 tab 01/24/19 11/07/19 Rx Amiodarone [Cordarone] 200 mg PO BID 05/03/19 11/07/19 History Cyanocobalamin [Vitamin B-12] 500 mcg PO DAILY 05/03/19 11/07/19 History INSULIN LISPRO (humaLOG) [humaLOG] See Protocol SQ AC-TID PRN 05/03/19 11/07/19 History Aspirin EC [Ecotrin Low Dose] 81 mg PO DAILY 11/07/19 11/07/19 History Docusate [Colace] 100 mg PO DAILY 11/07/19 11/07/19 History Iron(Unknown Dose) 1 tab PO DAILY 11/07/19 11/07/19 History Ketoconazole 2% Cream [Nizoral 2%] 1 applic TOPICAL BID PRN 11/07/19 11/07/19 History Magnesium Chloride [Slow Mag] 64 mg PO DAILY 11/07/19 11/07/19 History Potassium(Unknown Dose Otc) 1 tab PO DAILY 11/07/19 11/07/19 History Allergies Allergy/AdvReac Type Severity Reaction Status Date / Time fluoxetine HCl [From Prozac] Allergy Itching Verified 11/07/19 08:30 gluten Allergy Abdominal Verified 11/07/19 08:30 Pain Sulfa (Sulfonamide Allergy Itching Verified 11/07/19 08:30 Antibiotics) Physical Exam Vitals: Vital Signs Temp Pulse Resp BP Pulse Ox 11/07/19 09:02 80 11/07/19 08:50 97.8 F 81 22 145/61 99 11/07/19 07:24 97.9 F 84 16 162/62 99 11/07/19 05:35 97.8 F 82 18 162/68 99 11/07/19 05:05 98.2 F 81 20 166/66 11/07/19 04:56 100 11/07/19 04:55 98.1 F 82 18 164/68 100 11/07/19 03:30 97.7 F 76 18 177/70 100 11/07/19 01:43 98.3 F 82 20 167/62 100 11/07/19 01:13 97.9 F 73 22 147/58 99 11/07/19 01:03 98.0 F 78 22 165/60 99 11/06/19 22:30 98.1 F 80 18 119/85 95 Intake and Output 11/06/19 11/07/19 11/07/19 22:59 06:59 14:59 Intake Total 310 310 Output Total 2100 750 Balance -1790 -440 Intake: Blood Product 310 310 Rc As-1 Unit 310 [id number] Rc Irr As1 Unit 0 310 [id number] Output: Urine 2100 750 Other: # Voids 1 Weight 113.398 kg Results CBC & Chem 7: 11/07/19 07:44 11/06/19 23:02 Labs: Abnormal Lab Results - Last 24 Hours (Table) 11/06/19 11/06/19 11/06/19 Range/Units 23:02 23:02 23:02 RBC (3.80-5.40) m/uL Hgb (11.4-16.0) gm/dL Hct (34.0-46.0) % MCV (80.0-100.0) fL MCH (25.0-35.0) pg MCHC (31.0-37.0) g/dL RDW (11.5-15.5) % Plt Count (150-450) k/uL Macrocytosis APTT 17.7 L (22.0-30.0) sec Sodium 134 L (137-145) mmol/L Potassium 5.3 H (3.5-5.1) mmol/L Carbon Dioxide 15 L (22-30) mmol/L BUN 36 H (7-17) mg/dL Creatinine 1.47 H (0.52-1.04) mg/dL Glucose 405 H (74-99) mg/dL POC Glucose (mg/dL) (75-99) mg/dL Plasma Lactic Acid Jeffry 7.8 H* (0.7-2.0) mmol/L Troponin I (0.000-0.034) ng/mL Total Protein 6.2 L (6.3-8.2) g/dL Crossmatch 11/06/19 11/06/19 11/06/19 Range/Units 23:02 23:10 23:40 RBC 1.37 L (3.80-5.40) m/uL Hgb 5.0 L* (11.4-16.0) gm/dL Hct 16.6 L* (34.0-46.0) % MCV 121.2 H (80.0-100.0) fL MCH 36.4 H (25.0-35.0) pg MCHC 30.1 L (31.0-37.0) g/dL RDW 20.2 H (11.5-15.5) % Plt Count 97 L (150-450) k/uL Macrocytosis Marked A APTT (22.0-30.0) sec Sodium (137-145) mmol/L Potassium (3.5-5.1) mmol/L Carbon Dioxide (22-30) mmol/L BUN (7-17) mg/dL Creatinine (0.52-1.04) mg/dL Glucose (74-99) mg/dL POC Glucose (mg/dL) (75-99) mg/dL Plasma Lactic Acid Jeffry (0.7-2.0) mmol/L Troponin I 0.069 H* (0.000-0.034) ng/mL Total Protein (6.3-8.2) g/dL Crossmatch See Detail 11/07/19 11/07/19 Range/Units 07:44 08:19 RBC 2.02 L (3.80-5.40) m/uL Hgb 6.9 L* D (11.4-16.0) gm/dL Hct 20.9 L (34.0-46.0) % MCV 103.3 H D (80.0-100.0) fL MCH (25.0-35.0) pg MCHC (31.0-37.0) g/dL RDW 24.6 H (11.5-15.5) % Plt Count 75 L (150-450) k/uL Macrocytosis Marked A APTT (22.0-30.0) sec Sodium (137-145) mmol/L Potassium (3.5-5.1) mmol/L Carbon Dioxide (22-30) mmol/L BUN (7-17) mg/dL Creatinine (0.52-1.04) mg/dL Glucose (74-99) mg/dL POC Glucose (mg/dL) 176 H (75-99) mg/dL Plasma Lactic Acid Jeffry (0.7-2.0) mmol/L Troponin I (0.000-0.034) ng/mL Total Protein (6.3-8.2) g/dL Crossmatch Thrombosis Risk Factor Assmnt - DVT/VTE Prophylaxis DVT/VTE Prophylaxis: Mechanical Prophylaxis ordered
[2019-11-07 12:03] LABS: Glucose,Whole Blood 165 mg/dL (75-99)
[2019-11-07] MEDS ORDERED: MAGNESIUM CITRATE 296 ML BOTTLE PO ONE (17:00)
[2019-11-07 17:04] LABS: Glucose,Whole Blood 159 mg/dL (75-99)
[2019-11-07 20:03] LABS: Glucose,Whole Blood 241 mg/dL (75-99)
[2019-11-07] MEDS: AMIODARONE 200 MG TAB PO SCH (20:41)
[2019-11-07] MEDS: ANASTROZOLE 1 MG TAB PO SCH (20:41)
[2019-11-07] MEDS: ATORVASTATIN 80 MG TAB PO SCH (20:42)
[2019-11-07] MEDS: METOPROLOL TARTRATE 50 MG TAB PO SCH (20:42)
[2019-11-07] MEDS: MELATONIN 3 MG TABLET PO SCH (20:42)
[2019-11-07] MEDS: VENLAFAXINE HCL ER 75 MG CAP PO SCH (20:43)
[2019-11-07] MEDS: PANTOPRAZOLE 40 MG/10 ML VIAL IVP SCH (20:43)
[2019-11-07] MEDS: FUROSEMIDE 10 MG/ML 4 ML VIAL IV SCH (20:45)
[2019-11-07] MEDS: INSULIN DETEMIR (LEVEMIR) 100 UNIT/ML SYR SQ SCH (21:24)
--- NOTE | 2019-11-08 01:25 | P.CONS ---
History of Present Illness - Reason for Consult Consult date: 11/07/19 Anemia Requesting physician: Hortencia Houston - Chief Complaint Shortness of breath - History of Present Illness 74-year-old female with a medical history significant for coronary artery disease status post stent placement, atrial fibrillation, diabetes mellitus type 2, hypothyroidism, CHRISTIE, breast cancer status post bilateral mastectomy, morbid obesity, anxiety, depression, anemia of chronic disease, fibromyalgia, hypertension and hyperlipidemia who presented to the hospital with complaints of shortness of breath. Patient has a known history of anemia and was previously hospitalized for severe symptomatic anemia in 05/2019 at which time the patient required transfusion and underwent EGD significant for a normal study and a colonoscopy significant for polypectomy and diverticulosis. Plan was for follow-up as an outpatient setting for video capsule endoscopy, however on questioning the patient denies undergoing this study. She denies any signs or symptoms of GI bleeding with no melena, hematochezia, or nausea or vomiting. No prior history of peptic ulcer disease. Hemoglobin on presentation 5.0 currently 6.9 after transfusion of packed red blood cells, other laboratory evaluation significant for WBC 9.4, blood count 75,000, total bilirubin 0.4, alkaline phosphatase 85, AST 27 and ALP 33. Review of Systems REVIEW OF SYSTEMS: CONSTITUTIONAL: Denies any fevers, chills, weight change or fatigue. CARDIOVASCULAR: Denies any chest pain, palpitations high or low blood pressures, but patient has a known history of atrial fibrillation. RESPIRATORY: Denies any hemoptysis or cough the patient did have shortness of breath on presentation.. GENITOURINARY: No dysuria or hematuria. MUSCULOSKELETAL: No weakness reported. SKIN: Denies any new rashes or lesions, jaundice or pallor. PSYCHIATRIC: The patient does have a history of depression and anxiety. NEUROLOGY: Denies headache, denies any new focal deficits. EARS/NOSE/THROAT: No recent hearing change, congestion, nasal discharge or sore throat. EYES: No pain in eyes, discharge or change in vision. GASTROINTESTINAL: As per HPI. Past Medical History Past Medical History: Atrial Fibrillation, Cancer, Diabetes Mellitus, Hypertension, Sleep Apnea/CPAP/BIPAP, Thyroid Disorder Additional Past Medical History / Comment(s): Heart disease, ocular neuritis History of Any Multi-Drug Resistant Organisms: None Reported Past Surgical History: Appendectomy, Breast Surgery, Cholecystectomy, Heart Catheterization With Stent Additional Past Surgical History / Comment(s): bilateral masectomy, heart cath follow up in 2000 Past Anesthesia/Blood Transfusion Reactions: No Reported Reaction Date of Last Stent Placement:: 1997 Past Psychological History: No Psychological Hx Reported Smoking Status: Former smoker, Never smoker Past Alcohol Use History: None Reported Additional Past Alcohol Use History / Comment(s): Patient was a smoker of 4 packs per day for 20 years and quit approximately 20 years ago. She denies any marijuana, illicit drug use. No alcohol use. She was at home with her daughter. She does have a CPAP and nebulizer. Patient is . Past Drug Use History: None Reported - Past Family History Father Family Medical History: Coronary Artery Disease (CAD), Hypertension, Myocardial Infarction ([place]) Additional Family Medical History / Comment(s): Father at age 72 from coronary artery disease with history of diabetes Mother Family Medical History: Coronary Artery Disease (CAD) Additional Family Medical History / Comment(s): Mother at age 72 with history of coronary artery disease and diabetes. Sister(s) Additional Family Medical History / Comment(s): Patient has 1 sister with no major medical problems. Patient does not have. His. Patient has 1 daughter with no major medical problems. No history of breast cancer. Medications and Allergies Home Medications Medication Instructions Recorded Confirmed Type Anastrozole [Arimidex] 1 mg PO HS 01/01/14 11/07/19 History Insulin Detemir (Levemir) [Levemir] 40 unit SQ BID 01/01/14 11/07/19 History Spironolactone [Aldactone] 25 mg PO DAILY 01/01/14 11/07/19 History metFORMIN HCL 1,000 mg PO BID 01/01/14 11/07/19 History Furosemide [Lasix] 20 mg PO PC-SUPPER 01/20/19 11/07/19 History Furosemide [Lasix] 40 mg PO DAILY@0800 01/20/19 11/07/19 History Gabapentin 600 mg PO Q6H PRN 01/20/19 11/07/19 History Levothyroxine Sodium [Synthroid] 75 mcg PO DAILY 01/20/19 11/07/19 History Levothyroxine Sodium [Synthroid] 200 mcg PO DAILY 01/20/19 11/07/19 History Melatonin 3 mg PO HS 01/20/19 11/07/19 History Metoprolol Tartrate [Lopressor] 50 mg PO BID 01/20/19 11/07/19 History Venlafaxine HCl [Effexor XR] 75 mg PO HS 01/20/19 11/07/19 History Venlafaxine HCl [Effexor XR] 150 mg PO DAILY 01/20/19 11/07/19 History lisinopriL [Zestril] 5 mg PO DAILY 01/20/19 11/07/19 History traMADol HCL 50 mg PO TID PRN 01/20/19 11/07/19 History Atorvastatin [Lipitor] 80 mg PO HS #30 tab 01/24/19 11/07/19 Rx Clopidogrel [Plavix] 75 mg PO DAILY #30 tab 01/24/19 11/07/19 Rx Nitroglycerin Sl Tabs [Nitrostat] 0.4 mg SUBLINGUAL Q5M PRN #25 tab 01/24/19 11/07/19 Rx Amiodarone [Cordarone] 200 mg PO BID 05/03/19 11/07/19 History Cyanocobalamin [Vitamin B-12] 500 mcg PO DAILY 05/03/19 11/07/19 History INSULIN LISPRO (humaLOG) [humaLOG] See Protocol SQ AC-TID PRN 05/03/19 11/07/19 History Aspirin EC [Ecotrin Low Dose] 81 mg PO DAILY 11/07/19 11/07/19 History Docusate [Colace] 100 mg PO DAILY 11/07/19 11/07/19 History Iron(Unknown Dose) 1 tab PO DAILY 11/07/19 11/07/19 History Ketoconazole 2% Cream [Nizoral 2%] 1 applic TOPICAL BID PRN 11/07/19 11/07/19 History Magnesium Chloride [Slow Mag] 64 mg PO DAILY 11/07/19 11/07/19 History Potassium(Unknown Dose Otc) 1 tab PO DAILY 11/07/19 11/07/19 History Allergies Allergy/AdvReac Type Severity Reaction Status Date / Time fluoxetine HCl [From Prozac] Allergy Itching Verified 11/07/19 08:30 gluten Allergy Abdominal Verified 11/07/19 08:30 Pain Sulfa (Sulfonamide Allergy Itching Verified 11/07/19 08:30 Antibiotics) Physical Exam Vitals: Vital Signs Temp Pulse Resp BP Pulse Ox 11/07/19 11:35 98.3 F 81 18 156/60 100 11/07/19 11:05 97.8 F 80 22 150/60 100 11/07/19 11:00 98.1 F 80 20 154/68 100 11/07/19 10:51 98.3 F 85 22 148/66 100 11/07/19 09:02 80 11/07/19 08:50 97.8 F 81 22 145/61 99 11/07/19 07:24 97.9 F 84 16 162/62 99 11/07/19 05:35 97.8 F 82 18 162/68 99 11/07/19 05:05 98.2 F 81 20 166/66 11/07/19 04:56 100 11/07/19 04:55 98.1 F 82 18 164/68 100 11/07/19 03:30 97.7 F 76 18 177/70 100 11/07/19 01:43 98.3 F 82 20 167/62 100 11/07/19 01:13 97.9 F 73 22 147/58 99 11/07/19 01:03 98.0 F 78 22 165/60 99 11/06/19 22:30 98.1 F 80 18 119/85 95 Intake and Output 11/06/19 11/07/19 11/07/19 22:59 06:59 14:59 Intake Total 310 310 Output Total 2100 750 Balance -1790 -440 Intake: Blood Product 310 310 Rc As-1 Unit 0 [id number] Rc As-1 Unit 310 [id number] Rc Irr As1 Unit 0 310 [id number] Output: Urine 2100 750 Other: # Voids 1 Weight 113.398 kg On physical examination, patient appears comfortable in no apparent distress. HEAD: Normocephalic, atraumatic. EYES: No scleral icterus. No conjunctival injection. MOUTH: No lesions, tongue midline. NECK: Trachea midline, no gross abnormalities. CHEST: Decreased air entry in all lung hickey appreciated. HEART: S1-S2 appreciated, no murmur appreciated. ABDOMEN: Soft, morbid obese with no tenderness noted. Bowel sounds are positive. No organomegaly. No guarding or rigidity. EXTREMITIES: Bilateral pedal edema. SKIN: No rashes, no jaundice. NEUROLOGIC: Alert and oriented x3. No focal deficits. Results CBC & Chem 7: 11/07/19 07:44 11/06/19 23:02 Labs: Abnormal Lab Results - Last 24 Hours (Table) 11/06/19 11/06/19 11/06/19 Range/Units 23:02 23:02 23:02 RBC (3.80-5.40) m/uL Hgb (11.4-16.0) gm/dL Hct (34.0-46.0) % MCV (80.0-100.0) fL MCH (25.0-35.0) pg MCHC (31.0-37.0) g/dL RDW (11.5-15.5) % Plt Count (150-450) k/uL Macrocytosis APTT 17.7 L (22.0-30.0) sec Sodium 134 L (137-145) mmol/L Potassium 5.3 H (3.5-5.1) mmol/L Carbon Dioxide 15 L (22-30) mmol/L BUN 36 H (7-17) mg/dL Creatinine 1.47 H (0.52-1.04) mg/dL Glucose 405 H (74-99) mg/dL POC Glucose (mg/dL) (75-99) mg/dL Plasma Lactic Acid Jeffry 7.8 H* (0.7-2.0) mmol/L Troponin I (0.000-0.034) ng/mL Total Protein 6.2 L (6.3-8.2) g/dL Crossmatch 11/06/19 11/06/19 11/06/19 Range/Units 23:02 23:10 23:40 RBC 1.37 L (3.80-5.40) m/uL Hgb 5.0 L* (11.4-16.0) gm/dL Hct 16.6 L* (34.0-46.0) % MCV 121.2 H (80.0-100.0) fL MCH 36.4 H (25.0-35.0) pg MCHC 30.1 L (31.0-37.0) g/dL RDW 20.2 H (11.5-15.5) % Plt Count 97 L (150-450) k/uL Macrocytosis Marked A APTT (22.0-30.0) sec Sodium (137-145) mmol/L Potassium (3.5-5.1) mmol/L Carbon Dioxide (22-30) mmol/L BUN (7-17) mg/dL Creatinine (0.52-1.04) mg/dL Glucose (74-99) mg/dL POC Glucose (mg/dL) (75-99) mg/dL Plasma Lactic Acid Jeffry (0.7-2.0) mmol/L Troponin I 0.069 H* (0.000-0.034) ng/mL Total Protein (6.3-8.2) g/dL Crossmatch See Detail 11/07/19 11/07/19 11/07/19 Range/Units 07:44 08:19 12:01 RBC 2.02 L (3.80-5.40) m/uL Hgb 6.9 L* D (11.4-16.0) gm/dL Hct 20.9 L (34.0-46.0) % MCV 103.3 H D (80.0-100.0) fL MCH (25.0-35.0) pg MCHC (31.0-37.0) g/dL RDW 24.6 H (11.5-15.5) % Plt Count 75 L (150-450) k/uL Macrocytosis Marked A APTT (22.0-30.0) sec Sodium (137-145) mmol/L Potassium (3.5-5.1) mmol/L Carbon Dioxide (22-30) mmol/L BUN (7-17) mg/dL Creatinine (0.52-1.04) mg/dL Glucose (74-99) mg/dL POC Glucose (mg/dL) 176 H 165 H (75-99) mg/dL Plasma Lactic Acid Jeffry (0.7-2.0) mmol/L Troponin I (0.000-0.034) ng/mL Total Protein (6.3-8.2) g/dL Crossmatch Chest x-ray: report reviewed (Chest x-ray significant for mild pulmonary interstitial edema.) Assessment and Plan (1) Symptomatic anemia Narrative/Plan: 74-year-old female with multiple medical comorbidities presenting for shortness of breath. Patient has a known history of anemia with previous evaluation and to 05/2019 significant for normal EGD with diverticulosis of polypectomy on colonoscopy. No prior video capsule endoscopy performed. She denies any signs or symptoms of GI bleeding including hematemesis, hematochezia or melena. No abdominal pain reported. No history of peptic ulcer disease. Patient had a macrocytic hypochromic anemia on presentation with associated thrombocytopenia and hematology has been consulted to see the patient. Plan is also for video capsule endoscopy to rule out small intestinal GI bleed. Current Visit: Yes Status: Acute Code(s): D64.9 - ANEMIA, UNSPECIFIED SNOMED Code(s): 102670481 (2) Diverticulosis Current Visit: Yes Status: Acute Code(s): K57.90 - DVRTCLOS OF INTEST, PART UNSP, W/O PERF OR ABSCESS W/O BLEED SNOMED Code(s): 903897346 (3) History of adenomatous polyp of colon Current Visit: Yes Status: Acute Code(s): Z86.010 - PERSONAL HISTORY OF COLONIC POLYPS SNOMED Code(s): 651858214 Plan: Supportive care Clear liquid diet Magnesium citrate ordered Plan for video capsule endoscopy tomorrow to rule out small bowel bleed, no source of bleeding found on EGD or colonoscopy in 05/2019 Continue to monitor hemoglobin and hematocrit and transfuse as needed Await hematology evaluation in the setting of severe recurrent anemia and bicytopenia Continue to monitor stool output is or for any signs or symptoms of GI bleeding Thank you for allowing us to participate in the care of the patient
[2019-11-08 01:32] LABS: Glucose,Whole Blood 199 mg/dL (75-99)
[2019-11-08 07:05] LABS: Glucose,Whole Blood 187 mg/dL (75-99)
[2019-11-08] MEDS: LEVOTHYROXINE 100 MCG TAB PO SCH (07:38)
[2019-11-08] MEDS: LEVOTHYROXINE 75 MCG TAB PO SCH (07:38)
[2019-11-08] MEDS ORDERED: SIMETHICONE 40 MG/0.6 ML DROPS 2,000 MG/30 ML BOTTLE PO ONE (07:42)
[2019-11-08 08:47] LABS: Anisocytosis Moderate; HCT 28.4 % (34.0-46.0); Hypochromasia Slight; MCH 33.8 pg (25.0-35.0); MCHC 32.7 g/dL (31.0-37.0); MCV 103.2 fL (80.0-100.0); Macrocytosis Marked; Mean Platelet Volume 8.2; Poikilocytosis Moderate; RBC 2.75 m/uL (3.80-5.40); RDW 22.7 % (11.5-15.5); Reticulocyte % 5.2 % (0.5-2.0)
[2019-11-08 08:58] LABS: HGB 9.3 gm/dL (11.4-16.0); Platelet Count 79 k/uL (150-450)
[2019-11-08] MEDS: INSULIN ASPART (NovoLOG) 100 UNIT/ML VIAL SQ SCH ×4 (09:00→20:47)
[2019-11-08] MEDS: MAGNESIUM OXIDE 400 MG TAB PO SCH (09:01)
[2019-11-08] MEDS: METOPROLOL TARTRATE 50 MG TAB PO SCH ×2 (09:01→20:47)
[2019-11-08] MEDS: AMIODARONE 200 MG TAB PO SCH ×2 (09:04→20:46)
[2019-11-08] MEDS: INSULIN DETEMIR (LEVEMIR) 100 UNIT/ML SYR SQ SCH ×2 (09:08→20:47)
[2019-11-08] MEDS: PANTOPRAZOLE 40 MG/10 ML VIAL IVP SCH ×2 (09:09→20:48)
[2019-11-08] MEDS: FUROSEMIDE 10 MG/ML 4 ML VIAL IV SCH ×2 (09:09→20:46)
[2019-11-08 11:42] LABS: Glucose,Whole Blood 188 mg/dL (75-99)
[2019-11-08] MEDS: SPIRONOLACTONE 25 MG TAB PO SCH (11:49)
[2019-11-08] MEDS: lisinopriL 5 MG TAB PO SCH (11:49)
[2019-11-08] MEDS: VENLAFAXINE HCL ER 150 MG CAP PO SCH (11:50)
[2019-11-08 12:41] LABS: Albumin 4.1 g/dL (3.5-5.0); Calcium 9.7 mg/dL (8.4-10.2); Potassium 4.3 mmol/L (3.5-5.1); Total Bilirubin 0.8 mg/dL (0.2-1.3); Total Protein 6.6 g/dL (6.3-8.2)
--- NOTE | 2019-11-08 14:35 | P.CRDCN ---
History of Present Illness History of present illness: HISTORY OF PRESENTING ILLNESS This is a pleasant 74-year-old female past medical history significant for coronary artery disease status post PCI to the mid RCA December 2018, diabet es mellitus, hypertension, recurrent anemia, aortic stenosis and paroxysmal atrial fibrillation not on long-term anticoagulation. She follows in the office with Dr. Mcwilliams. We have been asked to see in consultation for her failure. She presented to the hospital with symptoms of shortness of breath. She states her symptoms were worsened with activity or exertion. She felt as though she could not get a full breath of air. She had no chest pain, dizziness or palpitations. Her hemoglobin on arrival was 5. She received 3 units of packed red blood cells and repeat hemoglobin today is 9.3. She underwent a video capsule study today with Dr. Baker. She is seen and examined resting com fortably lying flat in bed in no acute distress. She feels as though her breathing has improved however she feels extremely fatigued. She denies bleeding of any kind. Recent EGD/colonoscopy were unremarkable. DIAGNOSTICS EKG reveals what appears to be sinus and regular however there is significant artifact. She has diffuse ST depression inferior, anterior, septal and lateral leads. Chest xray mild pulmonary interstitial edema. Laboratory reviewed, WBC 8.0, hemoglobin on admission 5. 0 repeat today 9.3, platelets 79, sodium 141, potassium 4.3, creatinine 1.03, troponin 0.069 and 1.71, and T proBNP 1110.. Current cardiac medications include amiodarone 200 mg twice a day, aspirin 81 mg daily, atorvastatin 80 mg at bedtime, Plavix 75 mg daily, Lasix 40 mg in the morning and 20 mg in the evening, Lopressor 50 mg twice a day, Aldactone 25 mg daily and lisinopril 5 mg daily. Most recent echocardiogram obtained December 2018 revealed preserved LV systolic function with ejection fraction 50-55%, moderate aortic stenosis with a mean gradient of 18 mmHg, mild TR and mild pulmonary hypertension with an RVSP of 42 mmHg. REVIEW OF SYSTEMS At the time of my exam: CONSTITUTIONAL: Denies fever or chills. CARDIOVASCULAR: Denies chest pain, shortness of breath, orthopnea, PND or palpitations. RESPIRATORY: Denies cough. GASTROINTESTINAL: Denies abdominal pain, diarrhea, constipation, nausea or vomiting. MUSCULOSKELETAL: Denies myalgias. NEUROLOGIC: Denies numbness, tingling or weakness. ENDOCRINE: Denies fatigue, weight change, polydipsia or polyurina. GENITOURINARY: Denies burning, hematuria or urgency with micturation. HEMATOLOGIC: Denies history of anemia or bleeding. PHYSICAL EXAMINATION Blood pressure 167/67 heart rate 80 afebrile and maintaining oxygen saturation on room air. CONSTITUTIONAL: No apparent distress. HEENT: Head is normocephalic. Pupils are equal, round. Sclerae anicteric. Mucous membranes of the mouth are moist. No JVD. No carotid bruit. CHEST EXAMINATION: Lungs are clear to auscultation. No chest wall tenderness is noted on palpation or with deep breathing. HEART EXAMINATION: Regular rate and rhythm. S1, S2 heard. Systolic ejection murmur at the base, no gallops or rub. ABDOMEN: Soft, nontender. Positive bowel sounds. EXTREMITIES: 2+ peripheral pulses, no lower extremity edema and no calf tenderness. NEUROLOGIC EXAMINATION: Patient is awake, alert and oriented x3. ASSESSMENT Symptomatic anemia status post blood transfusion Troponin elevation secondary to oxygen supply and demand mismatch, type II event Coronary artery disease status post PCI to the RCA Paroxysmal atrial fibrillation on long-term anticoagulation Aortic stenosis Hypertension Dyslipidemia Diabetes mellitus PLAN Obtain 2D echocardiogram and doppler study to assess cardiac structure and function. Hold aspirin and plavix pending GI recommendations. Nurse Practitioner note has been reviewed, I agree with a documented findings and plan of care. Patient was seen and examined. Past Medical History Past Medical History: Atrial Fibrillation, Cancer, Diabetes Mellitus, Hypertension, Sleep Apnea/CPAP/BIPAP, Thyroid Disorder Additional Past Medical History / Comment(s): Heart disease, ocular neuritis Last Myocardial Infarction Date:: 2018 History of Any Multi-Drug Resistant Organisms: None Reported Past Surgical History: Appendectomy, Breast Surgery, Cholecystectomy, Heart Catheterization With Stent Additional Past Surgical History / Comment(s): bilateral masectomy, heart cath follow up in 2000 Past Anesthesia/Blood Transfusion Reactions: No Reported Reaction Additional Past Anesthesia/Blood Transfusion Reaction / Comment(s): Pt has received blood without reaction. Date of Last Stent Placement:: 1997 Past Psychological History: No Psychological Hx Reported Smoking Status: Former smoker, Never smoker Past Alcohol Use History: None Reported Additional Past Alcohol Use History / Comment(s): Patient was a smoker of 4 packs per day for 20 years and quit approximately 20 years ago. She denies any marijuana, illicit drug use. No alcohol use. She was at home with her daughter. She does have a CPAP and nebulizer. Patient is . Past Drug Use History: None Reported - Past Family History Father Family Medical History: Coronary Artery Disease (CAD), Hypertension, Myocardial Infarction ([place]) Additional Family Medical History / Comment(s): Father at age 72 from coronary artery disease with history of diabetes Mother Family Medical History: Coronary Artery Disease (CAD) Additional Family Medical History / Comment(s): Mother at age 72 with history of coronary artery disease and diabetes. Sister(s) Additional Family Medical History / Comment(s): Patient has 1 sister with no major medical problems. Patient does not have. His. Patient has 1 daughter with no major medical problems. No history of breast cancer. Medications and Allergies Home Medications Medication Instructions Recorded Confirmed Type Anastrozole [Arimidex] 1 mg PO HS 01/01/14 11/07/19 History Insulin Detemir (Levemir) [Levemir] 40 unit SQ BID 01/01/14 11/07/19 History Spironolactone [Aldactone] 25 mg PO DAILY 01/01/14 11/07/19 History metFORMIN HCL 1,000 mg PO BID 01/01/14 11/07/19 History Furosemide [Lasix] 20 mg PO PC-SUPPER 01/20/19 11/07/19 History Furosemide [Lasix] 40 mg PO DAILY@0800 01/20/19 11/07/19 History Gabapentin 600 mg PO Q6H PRN 01/20/19 11/07/19 History Levothyroxine Sodium [Synthroid] 75 mcg PO DAILY 01/20/19 11/07/19 History Levothyroxine Sodium [Synthroid] 200 mcg PO DAILY 01/20/19 11/07/19 History Melatonin 3 mg PO HS 01/20/19 11/07/19 History Metoprolol Tartrate [Lopressor] 50 mg PO BID 01/20/19 11/07/19 History Venlafaxine HCl [Effexor XR] 75 mg PO HS 01/20/19 11/07/19 History Venlafaxine HCl [Effexor XR] 150 mg PO DAILY 01/20/19 11/07/19 History lisinopriL [Zestril] 5 mg PO DAILY 01/20/19 11/07/19 History traMADol HCL 50 mg PO TID PRN 01/20/19 11/07/19 History Atorvastatin [Lipitor] 80 mg PO HS #30 tab 01/24/19 11/07/19 Rx Clopidogrel [Plavix] 75 mg PO DAILY #30 tab 01/24/19 11/07/19 Rx Nitroglycerin Sl Tabs [Nitrostat] 0.4 mg SUBLINGUAL Q5M PRN #25 tab 01/24/19 11/07/19 Rx Amiodarone [Cordarone] 200 mg PO BID 05/03/19 11/07/19 History Cyanocobalamin [Vitamin B-12] 500 mcg PO DAILY 05/03/19 11/07/19 History INSULIN LISPRO (humaLOG) [humaLOG] See Protocol SQ AC-TID PRN 05/03/19 11/07/19 History Aspirin EC [Ecotrin Low Dose] 81 mg PO DAILY 11/07/19 11/07/19 History Docusate [Colace] 100 mg PO DAILY 11/07/19 11/07/19 History Iron(Unknown Dose) 1 tab PO DAILY 11/07/19 11/07/19 History Ketoconazole 2% Cream [Nizoral 2%] 1 applic TOPICAL BID PRN 11/07/19 11/07/19 History Magnesium Chloride [Slow Mag] 64 mg PO DAILY 11/07/19 11/07/19 History Potassium(Unknown Dose Otc) 1 tab PO DAILY 11/07/19 11/07/19 History Allergies Allergy/AdvReac Type Severity Reaction Status Date / Time fluoxetine HCl [From Prozac] Allergy Itching Verified 11/07/19 08:30 gluten Allergy Abdominal Verified 11/07/19 08:30 Pain Sulfa (Sulfonamide Allergy Itching Verified 11/07/19 08:30 Antibiotics) Physical Exam Vitals: Vital Signs Temp Pulse Resp BP Pulse Ox 11/08/19 11:58 98 F 80 19 167/67 97 11/08/19 05:12 97.7 F 72 18 149/75 96 11/07/19 20:44 98.8 F 85 18 150/55 98 11/07/19 16:00 18 Intake and Output 11/07/19 11/08/19 11/08/19 22:59 06:59 14:59 Output Total 1400 Balance -1400 Output: Urine 1400 Other: Voiding Method Indwelling Catheter Indwelling Catheter # Bowel Movements 0 1 Weight 123 kg Results 11/08/19 07:23 11/08/19 07:23 Cardiac Enzymes 11/08/19 11/08/19 11/08/19 Range/Units 07:23 08:08 08:08 AST 32 (14-36) U/L Lactate Dehydrogenase 699 H (313-618) U/L Troponin I 1.710 H* (0.000-0.034) ng/mL CBC 11/08/19 Range/Units 07:23 WBC 8.0 (3.8-10.6) k/uL RBC 2.75 L (3.80-5.40) m/uL Hgb 9.3 L D (11.4-16.0) gm/dL Hct 28.4 L (34.0-46.0) % Plt Count 79 L (150-450) k/uL Comprehensive Metabolic Panel 11/08/19 Range/Units 07:23 Sodium 141 (137-145) mmol/L Potassium 4.3 (3.5-5.1) mmol/L Chloride 107 (98-107) mmol/L Carbon Dioxide 25 (22-30) mmol/L BUN 30 H (7-17) mg/dL Creatinine 1.03 (0.52-1.04) mg/dL Glucose 170 H (74-99) mg/dL Calcium 9.7 (8.4-10.2) mg/dL AST 32 (14-36) U/L ALT 30 (4-34) U/L Alkaline Phosphatase 100 (38-126) U/L Total Protein 6.6 (6.3-8.2) g/dL Albumin 4.1 (3.5-5.0) g/dL Current Medications Generic Name Dose Route Start Last Admin Trade Name Freq PRN Reason Stop Dose Admin Acetaminophen 650 mg 11/06/19 23:49 11/07/19 13:34 Tylenol Tab PO 650 mg Q6HR PRN Administration Mild Pain or Fever > 100.5 Amiodarone HCl 200 mg 11/07/19 21:00 11/08/19 09:04 Cordarone PO Not Given BID FATEMEH Anastrozole 1 mg 11/07/19 21:00 11/07/19 20:41 Arimidex PO 1 mg HS FATEMHE Administration Atorvastatin Calcium 80 mg 08/11/20 21:00 11/07/19 20:42 Lipitor PO 80 mg HS [facility] Administration Clotrimazole 1 applic 11/07/19 09:50 Lotrimin Cream TOPICAL BID PRN yeast infection abdominal fold Furosemide 40 mg 11/07/19 21:00 11/08/19 09:09 Lasix IV 40 mg Q12HR FATEMEH Administration Gabapentin 600 mg 11/07/19 09:50 Neurontin PO Q6H PRN Pain Insulin Aspart 0 unit 11/07/19 07:30 11/08/19 12:42 Novolog SQ 3 unit ACHS [facility] Administration Protocol Insulin Detemir 20 unit 11/07/19 21:00 11/08/19 09:08 Levemir SQ 20 unit BID [facility] Administration Levothyroxine Sodium 75 mcg 11/08/19 06:30 11/08/19 07:38 Synthroid PO Not Given DAILY@0630 [facility] Levothyroxine Sodium 200 mcg 11/08/19 06:30 11/08/19 07:38 Synthroid PO Not Given DAILY@0630 [facility] Lisinopril 5 mg 11/08/19 09:00 11/08/19 11:49 Zestril PO 5 mg DAILY [facility] Administration Magnesium Oxide 400 mg 11/08/19 09:00 11/08/19 09:01 Mag-Ox PO Not Given DAILY [facility] Melatonin 3 mg 11/07/19 21:00 11/07/19 20:42 Melatonin PO 3 mg HS [facility] Administration Metoprolol Tartrate 50 mg 11/07/19 21:00 11/08/19 09:01 Lopressor PO Not Given BID [facility] Naloxone HCl 0.2 mg 11/06/19 23:49 Narcan IV Q2M PRN Opioid Reversal Nitroglycerin 0.4 mg 11/07/19 09:50 Nitrostat SUBLINGUAL Q5M PRN Chest Pain Pantoprazole Sodium 40 mg 11/07/19 21:00 11/08/19 09:09 Protonix IVP 40 mg BID [facility] Administration Spironolactone 25 mg 11/07/19 10:00 11/08/19 11:49 Aldactone PO 25 mg DAILY [facility] Administration Tramadol HCl 50 mg 11/07/19 09:50 Ultram PO TID PRN Pain Venlafaxine HCl 75 mg 11/07/19 21:00 11/07/19 20:43 Effexor Xr PO 75 mg HS FATEMEH Administration Venlafaxine HCl 150 mg 11/08/19 09:00 11/08/19 11:50 Effexor Xr PO 150 mg DAILY FATEMEH Administration Intake and Output 11/07/19 11/08/19 11/08/19 22:59 06:59 14:59 Output Total 1400 Balance -1400 Output: Urine 1400 Other: Voiding Method Indwelling Catheter Indwelling Catheter # Bowel Movements 0 1 Weight 123 kg 11/08/19 07:23 11/08/19 07:23
--- NOTE | 2019-11-08 16:19 | P.PN ---
Subjective Progress Note Date: 11/08/19 History of Present Illness This is a 74-year-old female patient of Dr. Palacios and Dr. Raymundo Pena with past medical history of coronary artery disease status post stent December 2018 with previous stent in 1997, paroxysmal atrial fibrillation, diabetes mellitus type 2, insulin requiring, fibromyalgia, hypertension, hyperlipidemia, hypothyroidism, obstructive sleep apnea on CPAP, history of right breast cancer status post bilateral mastectomy currently on Arimidex, morbid obesity with BMI of 45, generalized anxiety disorder and recurrent depression, anemia of chronic disease. Her last hospitalization was in May of this year which time she presented with severe symptomatic anemia with a hemoglobin of 5.3 status post blood transfusion. She had a previous episode 1 month before and presented with a hemoglobin of 5.6. On June 10, patient underwent EGD with biopsy and colonoscopy with snare polypectomy. Upper endoscopy was within normal limits with no evidence of esophagitis or peptic ulcer disease. Colonoscopy revealed a 5-6 mm sessile cecal polyp and a 5 mm ascending colon polyp both of which were removed by snare polypectomy and scattered sigmoidal diverticulosis. Descending colon polyp was tubular adenoma. Cecal polyp tubulovillous adenoma. Duodenal biopsy unremarkable. Patient presents to hospital due to shortness of breath. She denies having any chest pain, palpitations. No fever chills cough. No nausea or vomiting. She denies having any black stools. She states her lower extremity edema is at her baseline no change. Patient came into [facility] emergency center for evaluation initial hemoglobin 5.0, platelet count 97. Sodium 134, potassium 5.3, chloride 105, CO2 15, BUN 36 and creatinine 1.47. Blood sugar 405. Troponin 0.069. ProBNP 1110. EKG with junctional rhythm with PVCs. Chest x-ray reveals mild pulmonary interstitial edema that is a change compared to old exam from May 2019. Could relate to mild acute heart failure. Patient was given 2 doses of IV Lasix started on Protonix, admitted to the MedSurg floor. A repeat hemoglobin after 2 units of packed RBCs is 6.9 and patient will be transfused one more unit. Consults with GI, cardiology and hematology. 11/07: The patient yesterday relayed to the ER nurse that she had some suicidal ideation but no plan for any intervention. She apparently just felt overwhelmed. We will add in consult with psychiatry. Family have also related to staff that she has had periods of confusion and had gone to see Dr. Garcia with no significant workup or answers. She has been seen by Dr. Bolaños and capsule endoscopy has been started for today as well as magnesium citrate. A repeat troponin came back elevated at 1.710 and patient is followed by ca rdiology. Patient has been afebrile, heart rate 72, blood pressure 149/75 of pulse ox 96% on room air. Patient denies having any chest pain, shortness of breath at rest, no lightheadedness or dizziness. No abdominal pain. No noted blood in stools and no emesis. Consult is pending with oncology. Repeat blood work reveals hemoglobin of 9.3, platelet count 79. BUN 30 and creatinine 1.03. Blood sugars run between 170 and 188. LDH 699. Magnesium 2.0. Anticipate need for subacute rehab. PT and OT have been added. Review of Systems Constitutional: No fever, no chills, no night sweats. No weight change. Reports weakness, Reports fatigue Reports lethargy. No daytime sleepiness. EENT: No headache. No blurred vision or double vision, no loss of vision. No l oss of Hearing, no ringing in the ears, no dizziness. No nasal drainage or congestion. No epistaxis. No sore throat. Lungs: Reports shortness of breath, no cough, no sputum production. No wheezing . Cardiovascular: No chest pain, Reports lower extremity edemachronic. No palpitations. No paroxysmal nocturnal dyspnea. Reports orthopnea. No lightheadedness or dizziness. No syncopal episodes. Abdominal: No abdominal pain. No nausea, vomiting. No diarrhea. No constipation. No bloody or tarry stools. No loss of appetite. Genitourinary: No dysuria, increased frequency, urgency. No urinary retention. Musculoskeletal: No myalgias. Reports muscle weakness, no gait dysfunction, no frequent falls. No back pain. No neck pain. Integumentary: No wounds, no lesions. No rash or pruritus. No unusual bruising. No change in hair or nails. Neurologic: No aphasia. No facial droop. No change in mentation. No head injury. No headache. No paralysis. No paresthesia. Psychiatric: No depression. No anxiety. No mood swings. Endocrine: No abnormal blood sugars. No weight change. No excessive sweating or thirst. No cold intolerance. Physical Examination Gen: This is a morbidly obese 74-year-old female. She is sitting on chair in her room and appears to be in no acute distress. HEENT: Head is atraumatic, normocephalic. Pupils equal, round. Sclerae is anicteric. NECK: Supple. No JVD. No lymphadenopathy. No thyromegaly. LUNGS: Clear to auscultation. No wheezes or rhonchi. No intercostal retractions. HEART: Regular rate and rhythm. No murmur. ABDOMEN: Soft. Bowel sounds are present. No masses. No abdominal tenderness. EXTREMITIES: 1+ bilateral pedal edema. No calf tenderness. NEUROLOGICAL: Patient is awake, alert and oriented x3. Cranial nerves 2 through 12 are grossly intact. Assessment and Plan 1. Severe anemia status post transfusion of 2 units packed RBCs, unclear etiology. Patient has had previous workup on other admissions. Consult placed with Dr. Baker and Dr. Siddiqui. The patient has chronic anemia along with macrocytosis, thrombocytopenia. Maintain nothing by mouth status. Plavix, eliquis on hold. Protonix 40 mg IV push twice daily. 2. Acute diastolic heart failure. Start Lasix 40 mg IV every 12 hours, daily weights and I&O, daily electrolytes and renal function. Continue lisinopril 5 mg daily, metoprolol tartrate 50 mg twice daily, Aldactone 25 mg daily. Cardiology consult. 3. Acute kidney injury with chronic kidney disease stage III. Avoid nephrotoxic agents. Continue lisinopril and Lasix for now. Monitor renal function daily. 4. Rule out underlying MDS with chronic anemia, thrombocytopenia and macrocytosis. Consult with Dr. Siddiqui. 5. Paroxysmal atrial fibrillation. No anticoagulation due to history of GI bleed. Continue amiodarone 200 mg twice daily, Lopressor 50 mg twice daily. Cardiology consult. 6. History of coronary artery disease with with multiple stent placements starting in 1997. Aspirin 81 mg daily, Plavix 75 mg daily--on hold. Continue Lopressor. 7. Diabetes mellitus type 2, insulin requiring, uncontrolled with hyperglycemia. Continue Levemir 20 units twice daily which is reduced from 40 units twice daily, continue NovoLog scale before meals and at bedtime. 8. Hypertension. Continue lisinopril 5 mg daily. 9. Hyperlipidemia. Continue atorvastatin 80 mg at bedtime. 10. Hypothyroidism. Continue levothyroxine 275 mg daily. 11. Fibromyalgia, stable. 12. History of breast cancer status post bilateral mastectomy. Continue Arimidex. 13. Generalized anxiety disorder and recurrent depression. Continue Effexor XR 150 mg the morning and 75 mg at bedtime. Consult with psychiatry. 14. Obstructive sleep apnea. Continue CPAP. 15. GI prophylaxis. Protonix IV twice daily. 16. DVT prophylaxis. SCD and LYNN hose 17. Possible suicidal ideation. Consult with psychiatry. COVID-19 testing will be needed prior to discharge to subacute rehab if necessary. CODE STATUS: No code Discharge plan: Most likely return home. Possible home care or subacute rehab need. PT and OT will be added. Impression and plan of care have been directed as dictated by the signing physician. Abril Riley nurse practitioner acting as scribe for signing physician. Objective - Vital Signs Vital signs: Vital Signs Temp 97.7 F 11/08/19 05:12 Pulse 72 11/08/19 05:12 Resp 18 11/08/19 05:12 BP 149/75 11/08/19 05:12 Pulse Ox 96 11/08/19 05:12 Intake & Output 11/07/19 11/08/19 11/08/19 18:59 06:59 18:59 Intake Total 620 Output Total 750 1400 Balance -130 -1400 Weight 113.398 kg 123 kg Intake: Blood Product 620 Rc As-1 Unit 310 [id number] Rc Irr As1 Unit 310 [id number] Output: Urine 750 1400 Other: Voiding Method Indwelling Catheter # Bowel Movements 1 - Labs CBC & Chem 7: 11/08/19 07:23 11/08/19 07:23 Labs: Abnormal Lab Results - Last 24 Hours (Table) 11/06/19 11/07/19 11/07/19 Range/Units 23:40 07:44 08:19 RBC 2.02 L (3.80-5.40) m/uL Hgb 6.9 L* D (11.4-16.0) gm/dL Hct 20.9 L (34.0-46.0) % MCV 103.3 H D (80.0-100.0) fL RDW 24.6 H (11.5-15.5) % Plt Count 75 L (150-450) k/uL Macrocytosis Marked A POC Glucose (mg/dL) 176 H (75-99) mg/dL Crossmatch See Detail 11/07/19 11/07/19 11/07/19 Range/Units 12:01 17:02 20:01 RBC (3.80-5.40) m/uL Hgb (11.4-16.0) gm/dL Hct (34.0-46.0) % MCV (80.0-100.0) fL RDW (11.5-15.5) % Plt Count (150-450) k/uL Macrocytosis POC Glucose (mg/dL) 165 H 159 H 241 H (75-99) mg/dL Crossmatch 11/08/19 11/08/19 Range/Units 01:30 06:56 RBC (3.80-5.40) m/uL Hgb (11.4-16.0) gm/dL Hct (34.0-46.0) % MCV (80.0-100.0) fL RDW (11.5-15.5) % Plt Count (150-450) k/uL Macrocytosis POC Glucose (mg/dL) 199 H 187 H (75-99) mg/dL Crossmatch
[2019-11-08 16:48] LABS: Glucose,Whole Blood 191 mg/dL (75-99)
[2019-11-08 16:50] LABS: % Iron Saturation 26.19 (12.00-45.00)
[2019-11-08 16:59] LABS: Folate, Serum 8.2 ng/mL
[2019-11-08 19:50] LABS: Glucose,Whole Blood 213 mg/dL (75-99)
[2019-11-08 19:57] LABS: Protein, Total 6.3 g/dL (6.2-8.2)
[2019-11-08] MEDS: ANASTROZOLE 1 MG TAB PO SCH (20:44)
[2019-11-08] MEDS: ATORVASTATIN 80 MG TAB PO SCH (20:46)
[2019-11-08] MEDS: VENLAFAXINE HCL ER 75 MG CAP PO SCH (20:48)
[2019-11-08] MEDS: MELATONIN 3 MG TABLET PO SCH (20:48)
--- NOTE | 2019-11-08 21:25 | P.CONS ---
History of Present Illness - Reason for Consult Consult date: 11/08/19 Macrovytic severe anemia Requesting physician: Abril Riley - Chief Complaint Low Hemoglobin - History of Present Illness Ms Pinto is pleasant [place], who is known to our practice for history of DVT and Breast cancer. Primary oncologist Dr. Saroj Siddiqui, last seen in April 2017. She was diagnosed with Right sided breast cancer in 2008 and underwent a bilateral mastectomy with rt axillary dissection, which was done in 12/05. She was started on Arimidex. She did not follow since mid 2010 onwards, and ran out of Arimidex in the summer of 2011. She called the office in 05/11 and restablished care. She also started back on Arimidex. She did not keep her appt in 12/09. She ran out of Arimidex about 2 weeks prior to her appt here on 03/31/13. She resumed it after that visit, and reported good compliance st her visit here on 11/04/13. 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 She reported multiple side effects, and was changed to Coumadin, which she tolerated well. In the interim, she was diagnosed with diastolic CHF in the fall of 2015, and had cataract surgery in and 01/11. She had labs and PET done to check for mets, which were negative. She got her doppler done in 10/12, showing some residual clot with recanalization. She stopped coumadin in late 09/12. She was advised to start back on Arimidex to complete 10 yrs, but did not do so as she could not afford it. Breast Next Testing in 09/12 was negative. She resumed Arimidex in 01/12. Last follow-up in 2018. She now presents to [facility] with hemoglobin of 5.4. She was previously seen in May of this year for the same and underwent Full GI work-up with EGD with biopsy and colonoscopy with snare polypectomy. Upper endoscopy was within normal limits. Colonoscopy revealed cecal polyp and a 5 mm ascending colon polyp both of which were removed. also, mention of scattered sigmoidal diverticulosis. Today she is status post capsule endoscopy. She has flat affect, denies bleeding. Per notes and family she has been having increased states of confusion, forgetfulness, and has seen neurology for this. Review of Systems All systems: negative (HPI) Past Medical History Past Medical History: Atrial Fibrillation, Cancer, Diabetes Mellitus, Hypertension, Sleep Apnea/CPAP/BIPAP, Thyroid Disorder Additional Past Medical History / Comment(s): Heart disease, ocular neuritis Last Myocardial Infarction Date:: 2018 History of Any Multi-Drug Resistant Organisms: None Reported Past Surgical History: Appendectomy, Breast Surgery, Cholecystectomy, Heart Catheterization With Stent Additional Past Surgical History / Comment(s): bilateral masectomy, heart cath follow up in 2000 Past Anesthesia/Blood Transfusion Reactions: No Reported Reaction Additional Past Anesthesia/Blood Transfusion Reaction / Comm: Pt has received blood without reaction. Date of Last Stent Placement:: 1997 Past Psychological History: No Psychological Hx Reported Smoking Status: Former smoker, Never smoker Past Alcohol Use History: None Reported Additional Past Alcohol Use History / Comment(s): Patient was a smoker of 4 packs per day for 20 years and quit approximately 20 years ago. She denies any marijuana, illicit drug use. No alcohol use. She was at home with her daughter. She does have a CPAP and nebulizer. Patient is . Past Drug Use History: None Reported - Past Family History Father Family Medical History: Coronary Artery Disease (CAD), Hypertension, Myocardial Infarction (VT) Additional Family Medical History / Comment(s): Father at age 72 from coronary artery disease with history of diabetes Mother Family Medical History: Coronary Artery Disease (CAD) Additional Family Medical History / Comment(s): Mother at age 72 with history of coronary artery disease and diabetes. Sister(s) Additional Family Medical History / Comment(s): Patient has 1 sister with no major medical problems. Patient does not have. His. Patient has 1 daughter with no major medical problems. No history of breast cancer. Medications and Allergies Home Medications Medication Instructions Recorded Confirmed Type Anastrozole [Arimidex] 1 mg PO HS 01/01/14 11/07/19 History Insulin Detemir (Levemir) [Levemir] 40 unit SQ BID 01/01/14 11/07/19 History Spironolactone [Aldactone] 25 mg PO DAILY 01/01/14 11/07/19 History Levothyroxine Sodium [Synthroid] 75 mcg PO DAILY 01/20/19 11/07/19 History Levothyroxine Sodium [Synthroid] 200 mcg PO DAILY 01/20/19 11/07/19 History Melatonin 3 mg PO HS 01/20/19 11/07/19 History Metoprolol Tartrate [Lopressor] 50 mg PO BID 01/20/19 11/07/19 History Venlafaxine HCl [Effexor XR] 75 mg PO HS 01/20/19 11/07/19 History Venlafaxine HCl [Effexor XR] 150 mg PO DAILY 01/20/19 11/07/19 History lisinopriL [Zestril] 5 mg PO DAILY 01/20/19 11/07/19 History Atorvastatin [Lipitor] 80 mg PO HS #30 tab 01/24/19 11/07/19 Rx Nitroglycerin Sl Tabs [Nitrostat] 0.4 mg SUBLINGUAL Q5M PRN #25 tab 01/24/19 11/07/19 Rx Amiodarone [Cordarone] 200 mg PO BID 05/03/19 11/07/19 History Cyanocobalamin [Vitamin B-12] 500 mcg PO DAILY 05/03/19 11/07/19 History Aspirin EC [Ecotrin Low Dose] 81 mg PO DAILY 11/07/19 11/07/19 History Docusate [Colace] 100 mg PO DAILY 11/07/19 11/07/19 History Iron(Unknown Dose) 1 tab PO DAILY 11/07/19 11/07/19 History Ketoconazole 2% Cream [Nizoral 2%] 1 applic TOPICAL BID PRN 11/07/19 11/07/19 History Magnesium Chloride [Slow-Mag] 64 mg PO DAILY 11/07/19 11/07/19 History Ferrous Sulfate [Iron (65 MG 325 mg PO BID-W/MEALS tab 11/10/19 Rx Elemental)] Furosemide [Lasix] 40 mg PO BID@0900,1600 tab 11/10/19 Rx Gabapentin 600 mg PO Q6H PRN #12 tab 11/10/19 Rx INSULIN ASPART (NovoLOG) [NovoLOG 0 unit SQ ACHS vial 11/10/19 Rx (formulary)] metFORMIN HCL [Glucophage] 1,000 mg PO BID #60 tab 11/10/19 Rx traMADol HCL 50 mg PO TID PRN #9 tab 11/10/19 Rx Allergies Allergy/AdvReac Type Severity Reaction Status Date / Time fluoxetine HCl [From Prozac] Allergy Itching Verified 11/07/19 08:30 gluten Allergy Abdominal Verified 11/07/19 08:30 Pain Sulfa (Sulfonamide Allergy Itching Verified 11/07/19 08:30 Antibiotics) Physical Exam Vitals: Vital Signs Temp Pulse Resp BP Pulse Ox 11/08/19 19:46 98.2 F 84 18 135/73 97 11/08/19 11:58 98 F 80 19 167/67 97 11/08/19 05:12 97.7 F 72 18 149/75 96 Intake and Output 11/08/19 11/08/19 11/08/19 06:59 14:59 22:59 Intake Total 600 Output Total 1400 600 Balance -1400 600 -600 Intake: Oral 600 Output: Urine 1400 600 Uretheral (Teixeira) 600 Other: Voiding Method Indwelling Catheter Indwelling Catheter # Bowel Movements 1 Weight 123 kg - Constitutional General appearance: cooperative, morbidly obese, no acute distress - EENT Eyes: EOMI, dentition normal ENT: hard of hearing, NA/AT, normal oropharynx - Neck Neck: normal ROM - Respiratory Respiratory: bilateral: diminished (bases, mild increased effort) - Cardiovascular Rhythm: irregularly irregular leg Peripheral Edema: bilateral: Trace - Gastrointestinal General gastrointestinal: normal bowel sounds, soft, tenderness - Integumentary Integumentary: pale - Neurologic non-focal - Musculoskeletal Musculoskeletal: generalized weakness - Psychiatric POor historian, fatigued Psychiatric: A&O x's 3 Results CBC & Chem 7: 11/10/19 08:36 11/09/19 08:43 Labs: Abnormal Lab Results - Last 24 Hours (Table) 11/08/19 11/08/19 11/08/19 Range/Units 01:30 06:56 07:23 RBC 2.75 L (3.80-5.40) m/uL Hgb 9.3 L D (11.4-16.0) gm/dL Hct 28.4 L (34.0-46.0) % MCV 103.2 H (80.0-100.0) fL RDW 22.7 H (11.5-15.5) % Plt Count 79 L (150-450) k/uL Macrocytosis Marked A Retic Count 5.2 H (0.5-2.0) % BUN (7-17) mg/dL Glucose (74-99) mg/dL POC Glucose (mg/dL) 199 H 187 H (75-99) mg/dL Lactate Dehydrogenase (313-618) U/L Troponin I (0.000-0.034) ng/mL Vitamin B12 (200.0-944.0) pg/mL 11/08/19 11/08/19 11/08/19 Range/Units 07:23 08:08 08:08 RBC (3.80-5.40) m/uL Hgb (11.4-16.0) gm/dL Hct (34.0-46.0) % MCV (80.0-100.0) fL RDW (11.5-15.5) % Plt Count (150-450) k/uL Macrocytosis Retic Count (0.5-2.0) % BUN 30 H (7-17) mg/dL Glucose 170 H (74-99) mg/dL POC Glucose (mg/dL) (75-99) mg/dL Lactate Dehydrogenase 699 H (313-618) U/L Troponin I 1.710 H* (0.000-0.034) ng/mL Vitamin B12 1191.0 H (200.0-944.0) pg/mL 11/08/19 11/08/19 11/08/19 Range/Units 11:40 16:46 19:49 RBC (3.80-5.40) m/uL Hgb (11.4-16.0) gm/dL Hct (34.0-46.0) % MCV (80.0-100.0) fL RDW (11.5-15.5) % Plt Count (150-450) k/uL Macrocytosis Retic Count (0.5-2.0) % BUN (7-17) mg/dL Glucose (74-99) mg/dL POC Glucose (mg/dL) 188 H 191 H 213 H (75-99) mg/dL Lactate Dehydrogenase (313-618) U/L Troponin I (0.000-0.034) ng/mL Vitamin B12 (200.0-944.0) pg/mL Assessment and Plan Plan: Assessment and Recommendations: Macrocytic Anemia: - Presented with hemoglobin of 5.4, supportive transfusions ordered and received. Unfortunetly was unable to obtain Iron studies prior to transfusions so therefore could not evaluate for blood loss compoenent. - She is status post capsulr endoscopy and EGD/Colonoscopy (last admission) - Iron supplements ordered - B12, Folate levels ordered Hx: DVT: - Was on Warfarin, on hold Hx: Right BReast Cancer: - Non-adherence with follow-ups and arimidex over the years - Diagnosed in 2008, currently still trying to complete full 10 years of arimidex.
--- NOTE | 2019-11-08 22:43 | P.PN ---
Subjective Progress Note Date: 11/08/19 Principal diagnosis: Symptomatic anemia Patient is seen sitting bedside with no acute complaints. No signs or symptoms of GI bleeding tolerated a liquid diet. Objective - Vital Signs Vital signs: Vital Signs Temp 98 F 11/08/19 11:58 Pulse 80 11/08/19 11:58 Resp 19 11/08/19 11:58 BP 167/67 11/08/19 11:58 Pulse Ox 97 11/08/19 11:58 Intake & Output 11/07/19 11/08/19 11/08/19 18:59 06:59 18:59 Intake Total 620 Output Total 750 1400 Balance -130 -1400 Weight 113.398 kg 123 kg Intake: Blood Product 620 Rc As-1 Unit 310 [id number] Rc Irr As1 Unit 310 [id number] Output: Urine 750 1400 Other: Voiding Method Indwelling Catheter Indwelling Catheter # Bowel Movements 1 - Exam On physical examination, patient appears comfortable in no apparent distress. HEAD: Normocephalic, atraumatic. EYES: No scleral icterus. No conjunctival injection. MOUTH: No lesions, tongue midline. NECK: Trachea midline, no gross abnormalities. ABDOMEN: Soft, obese. Bowel sounds are positive. No organomegaly. No guarding or rigidity. EXTREMITIES: Bilateral pedal edema. SKIN: No rashes, no jaundice. NEUROLOGIC: Alert and oriented x3. No focal deficits. - Labs CBC & Chem 7: 11/08/19 07:23 11/08/19 07:23 Labs: Abnormal Lab Results - Last 24 Hours (Table) 11/06/19 11/07/19 11/07/19 Range/Units 23:40 17:02 20:01 RBC (3.80-5.40) m/uL Hgb (11.4-16.0) gm/dL Hct (34.0-46.0) % MCV (80.0-100.0) fL RDW (11.5-15.5) % Plt Count (150-450) k/uL Macrocytosis Retic Count (0.5-2.0) % BUN (7-17) mg/dL Glucose (74-99) mg/dL POC Glucose (mg/dL) 159 H 241 H (75-99) mg/dL Troponin I (0.000-0.034) ng/mL Crossmatch See Detail 11/08/19 11/08/19 11/08/19 Range/Units 01:30 06:56 07:23 RBC 2.75 L (3.80-5.40) m/uL Hgb 9.3 L D (11.4-16.0) gm/dL Hct 28.4 L (34.0-46.0) % MCV 103.2 H (80.0-100.0) fL RDW 22.7 H (11.5-15.5) % Plt Count 79 L (150-450) k/uL Macrocytosis Marked A Retic Count 5.2 H (0.5-2.0) % BUN (7-17) mg/dL Glucose (74-99) mg/dL POC Glucose (mg/dL) 199 H 187 H (75-99) mg/dL Troponin I (0.000-0.034) ng/mL Crossmatch 11/08/19 11/08/19 11/08/19 Range/Units 07:23 08:08 11:40 RBC (3.80-5.40) m/uL Hgb (11.4-16.0) gm/dL Hct (34.0-46.0) % MCV (80.0-100.0) fL RDW (11.5-15.5) % Plt Count (150-450) k/uL Macrocytosis Retic Count (0.5-2.0) % BUN 30 H (7-17) mg/dL Glucose 170 H (74-99) mg/dL POC Glucose (mg/dL) 188 H (75-99) mg/dL Troponin I 1.710 H* (0.000-0.034) ng/mL Crossmatch Assessment and Plan (1) Symptomatic anemia Narrative/Plan: 74-year-old female with multiple medical comorbidities presenting for shortness of breath. Patient has a known history of anemia with previous evaluation and to 05/2019 significant for normal EGD with diverticulosis of polypectomy on colonoscopy. No prior video capsule endoscopy performed. She denies any signs or symptoms of GI bleeding including hematemesis, hematochezia or melena. No abdominal pain reported. No history of peptic ulcer disease. Patient had a macrocytic hypochromic anemia on presentation with associated thrombocytopenia and hematology has been consulted to see the patient. Plan is also for video capsule endoscopy to rule out small intestinal GI bleed. Current Visit: Yes Status: Acute Code(s): D64.9 - ANEMIA, UNSPECIFIED SNOMED Code(s): 889421237 (2) Diverticulosis Current Visit: Yes Status: Acute Code(s): K57.90 - DVRTCLOS OF INTEST, PART UNSP, W/O PERF OR ABSCESS W/O BLEED SNOMED Code(s): 676588791 (3) History of adenomatous polyp of colon Current Visit: Yes Status: Acute Code(s): Z86.010 - PERSONAL HISTORY OF COLONIC POLYPS SNOMED Code(s): 977225594 Plan: Supportive care Clear liquid diet, okay for regular diet later in the day Patient currently undergoing study with video capsule endoscopy Continue to monitor hemoglobin and hematocrit and transfuse as needed Await hematology evaluation in the setting of severe recurrent anemia and bicytopenia Continue to monitor stool output is or for any signs or symptoms of GI bleeding Thank you for allowing us to participate in the care of the patient
[2019-11-08] MEDS: FERROUS SULFATE 325 MG TAB PO SCH (23:13)
[2019-11-09] MEDS: LEVOTHYROXINE 100 MCG TAB PO SCH (05:40)
[2019-11-09] MEDS: LEVOTHYROXINE 75 MCG TAB PO SCH (05:40)
[2019-11-09 06:51] LABS: Glucose,Whole Blood 178 mg/dL (75-99)
[2019-11-09] MEDS: FUROSEMIDE 40 MG TAB PO SCH ×2 (07:52→16:31)
[2019-11-09] MEDS: INSULIN DETEMIR (LEVEMIR) 100 UNIT/ML SYR SQ SCH ×2 (07:53→21:14)
[2019-11-09] MEDS: INSULIN ASPART (NovoLOG) 100 UNIT/ML VIAL SQ SCH ×4 (07:53→21:14)
[2019-11-09] MEDS: PANTOPRAZOLE 40 MG/10 ML VIAL IVP SCH ×2 (07:55→21:14)
[2019-11-09] MEDS: VENLAFAXINE HCL ER 150 MG CAP PO SCH (07:56)
[2019-11-09] MEDS: FERROUS SULFATE 325 MG TAB PO SCH ×2 (07:56→16:31)
[2019-11-09] MEDS: SPIRONOLACTONE 25 MG TAB PO SCH (07:57)
[2019-11-09] MEDS: AMIODARONE 200 MG TAB PO SCH ×2 (07:57→21:14)
[2019-11-09] MEDS: METOPROLOL TARTRATE 50 MG TAB PO SCH ×2 (07:57→21:14)
[2019-11-09] MEDS: lisinopriL 5 MG TAB PO SCH (07:57)
[2019-11-09] MEDS: MAGNESIUM OXIDE 400 MG TAB PO SCH (07:57)
[2019-11-09 09:24] LABS: Anisocytosis Moderate; Basophils % (A) 0 %; Eosinophils # (A) 0.2 k/uL (0-0.7); Eosinophils % (A) 2 %; HCT 27.9 % (34.0-46.0); Hypochromasia Slight; Lymphocytes # (A) 1.2 k/uL (1.0-4.8); Lymphocytes % (A) 13 %; MCH 33.7 pg (25.0-35.0); MCHC 32.1 g/dL (31.0-37.0); Macrocytosis Marked; Monocytes # (A) 0.7 k/uL (0-1.0); Monocytes % (A) 8 %; Neutrophils # (A) 7.3 k/uL (1.3-7.7); Neutrophils % (A) 75 %; Poikilocytosis Moderate; RBC 2.66 m/uL (3.80-5.40); RDW 22.6 % (11.5-15.5); WBC 9.7 k/uL (3.8-10.6)
[2019-11-09 09:30] LABS: Platelet Count 66 k/uL (150-450)
[2019-11-09 09:33] LABS: Albumin 3.6 g/dL (3.5-5.0); Calcium 8.3 mg/dL (8.4-10.2); Potassium 4.4 mmol/L (3.5-5.1); Total Bilirubin 0.9 mg/dL (0.2-1.3)
[2019-11-09 11:06] LABS: Glucose,Whole Blood 224 mg/dL (75-99)
--- NOTE | 2019-11-09 11:46 | ECHOF ---
Referral Reason:trop elevation, anemia, sob MEASUREMENTS -------- HEIGHT: 157.5 cm WEIGHT: 122.9 kg BP: RVIDd: 3.1 cm (< 3.3) IVSd: 1.4 cm (0.6 - 1.1) LVIDd: 4.2 cm (3.9 - 5.3) LVPWd: 1.4 cm (0.6 - 1.1) IVSs: 1.8 cm LVIDs: 2.8 cm LVPWs: 1.9 cm LA Diam: 3.6 cm (2.7 - 3.8) Ao Diam: 2.9 cm (2.0 - 3.7) AV Cusp: 1.3 cm (1.5 - 2.6) MV EXCURSION: 14.751 mm (> 18.000) MV EF SLOPE: 28 mm/s (70 - 150) EPSS: 0.4 cm MV E Vahid: 1.02 m/s MV DecT: 245 ms MV A Vahid: 1.12 m/s MV E/A Ratio: 0.91 AV maxP.08 mmHg AV meanP.57 mmHg AR PHT: 1015 ms FINDINGS -------- Sinus rhythm. This was a technically adequate study. The left ventricular size is normal. There is moderate concentric left ventricular hypertrophy. O verall left ventricular systolic function is normal with, an EF between 65 - 70 %. The right ventricle is normal in size. The left atrial size is normal. The right atrium is normal in size. Interatrial and interventricular septum intact. There is mild to moderate aortic valve sclerosis. There is mild aortic regurgitation. There is mo derate aortic stenosis present. Peak/mean gradient across the Aortic Valve is 42.08mmHg / 21.57mmHg . The mitral valve leaflets are mildly thickened. Moderate mitral annular calcification present. The tricuspid valve appears structurally normal. The pulmonic valve was not well visualized. The aortic root size is normal. Normal inferior vena cava with normal inspiratory collapse consistent with estimated right atrial pre ssure of 5 mmHg. There is no pericardial effusion. CONCLUSIONS -------- 1. The left ventricular size is normal. 2. There is moderate concentric left ventricular hypertrophy. 3. Overall left ventricular systolic function is normal with, an EF between 65 - 70 %. 4. There is mild to moderate aortic valve sclerosis. 5. There is mild aortic regurgitation. 6. There is moderate aortic stenosis present. 7. Peak/mean gradient across the Aortic Valve is 42.08mmHg / 21.57mmHg. 8. The mitral valve leaflets are mildly thickened. 9. Moderate mitral annular calcification present. 10. There is no pericardial effusion. SENIOR LOGISTICS MANAGER: Juliana Mcfadden RDCS
--- NOTE | 2019-11-09 12:53 | P.PN ---
Subjective HISTORY OF PRESENTING ILLNESS This is a pleasant 74-year-old female past medical history significant for coronary artery disease status post PCI to the mid RCA December 2018, diabetes mellitus, hypertension, recurrent anemia, aortic stenosis and paroxysmal atrial fibrillation not on long-term anticoagulation secondary to recurrent anemia. She follows in the office with Dr. Mcwilliams. Echocardiogram revealed preserved LV systolic function with EF 65-70%, mild aortic sclerosis, mild AR, moderate aortic stenosis with mean gradient 21 mmHg and moderate mitral calcifications. No regional wall motion abnormalities. Blood pressure 125/53 heart rate 57 afebrile and maintaining oxygen saturation on room air. Laboratory data reviewed, WBC 9.7, hgb 9.0, plt 66, sodium 136, potassium 4.4, creatinine 1.11. PHYSICAL EXAMINATION CONSTITUTIONAL: No apparent distress. HEENT: Head is normocephalic. Pupils are equal, round. Sclerae anicteric. Mucous membranes of the mouth are moist. No JVD. No carotid bruit. CHEST EXAMINATION: Lungs are clear to auscultation. No chest wall tenderness is noted on palpation or with deep breathing. HEART EXAMINATION: Regular rate and rhythm. S1, S2 heard. Systolic ejection murmur at the base, no gallops or rub. EXTREMITIES: 2+ peripheral pulses, no lower extremity edema and no calf tenderness. ASSESSMENT Symptomatic anemia status post blood transfusion Troponin elevation secondary to oxygen supply and demand mismatch, type II myocardial injury Coronary artery disease status post PCI to the RCA Paroxysmal atrial fibrillation on long-term anticoagulation Aortic stenosis Hypertension Dyslipidemia Diabetes mellitus PLAN There are no wall motion abnormalities noted on echocardiogram. Troponin leak secondary to supply demand mismatch, not an acute coronary event. Upon discharge she will follow up in the office for a stress test. Resume aspirin upon discharge when appropriate per GI. Plavix can be discontinued. Nurse Practitioner note has been reviewed, I agree with a documented findings and plan of care. Patient was seen and examined. Objective - Vital Signs Vital signs: Vital Signs Temp 98.3 F 11/09/19 11:47 Pulse 57 L 11/09/19 11:47 Resp 20 11/09/19 11:47 BP 125/53 11/09/19 11:47 Pulse Ox 98 11/09/19 11:47 Intake & Output 11/08/19 11/09/19 11/09/19 18:59 06:59 18:59 Intake Total 600 Output Total 600 600 Balance 0 -600 Weight 118.5 kg Intake: Oral 600 Output: Urine 600 600 Uretheral (Teixeira) 600 Other: Voiding Method Indwelling Catheter Indwelling Catheter Indwelling Catheter # Bowel Movements 0 - Labs CBC & Chem 7: 11/09/19 08:43 11/09/19 08:43 Labs: Abnormal Lab Results - Last 24 Hours (Table) 11/08/19 11/08/19 11/08/19 Range/Units 07:23 08:08 16:46 RBC (3.80-5.40) m/uL Hgb (11.4-16.0) gm/dL Hct (34.0-46.0) % MCV (80.0-100.0) fL RDW (11.5-15.5) % Plt Count (150-450) k/uL Macrocytosis Sodium (137-145) mmol/L BUN 30 H (7-17) mg/dL Creatinine (0.52-1.04) mg/dL Glucose 170 H (74-99) mg/dL POC Glucose (mg/dL) 191 H (75-99) mg/dL Calcium (8.4-10.2) mg/dL Lactate Dehydrogenase 699 H (313-618) U/L Total Protein (6.3-8.2) g/dL Vitamin B12 1191.0 H (200.0-944.0) pg/mL 11/08/19 11/09/19 11/09/19 Range/Units 19:49 06:50 08:43 RBC (3.80-5.40) m/uL Hgb (11.4-16.0) gm/dL Hct (34.0-46.0) % MCV (80.0-100.0) fL RDW (11.5-15.5) % Plt Count (150-450) k/uL Macrocytosis Sodium 136 L (137-145) mmol/L BUN 26 H (7-17) mg/dL Creatinine 1.11 H (0.52-1.04) mg/dL Glucose 219 H (74-99) mg/dL POC Glucose (mg/dL) 213 H 178 H (75-99) mg/dL Calcium 8.3 L (8.4-10.2) mg/dL Lactate Dehydrogenase (313-618) U/L Total Protein 6.0 L (6.3-8.2) g/dL Vitamin B12 (200.0-944.0) pg/mL 11/09/19 11/09/19 Range/Units 08:43 11:04 RBC 2.66 L (3.80-5.40) m/uL Hgb 9.0 L (11.4-16.0) gm/dL Hct 27.9 L (34.0-46.0) % MCV 105.0 H (80.0-100.0) fL RDW 22.6 H (11.5-15.5) % Plt Count 66 L (150-450) k/uL Macrocytosis Marked A Sodium (137-145) mmol/L BUN (7-17) mg/dL Creatinine (0.52-1.04) mg/dL Glucose (74-99) mg/dL POC Glucose (mg/dL) 224 H (75-99) mg/dL Calcium (8.4-10.2) mg/dL Lactate Dehydrogenase (313-618) U/L Total Protein (6.3-8.2) g/dL Vitamin B12 (200.0-944.0) pg/mL
[2019-11-09 13:26] LABS: Immunoglobulin A <25.5 mg/dL (60.0-350.0); Immunoglobulin M <16.9 mg/dL (40.0-280.0)
--- NOTE | 2019-11-09 13:43 | P.PN ---
Subjective Progress Note Date: 11/09/19 History of Present Illness This is a 74-year-old female patient of Dr. Palacios and Dr. Raymundo Pena with past medical history of coronary artery disease status post stent December 2018 with previous stent in 1997, paroxysmal atrial fibrillation, diabetes mellitus type 2, insulin requiring, fibromyalgia, hypertension, hyperlipidemia, hypothyroidism, obstructive sleep apnea on CPAP, history of right breast cancer status post bilateral mastectomy currently on Arimidex, morbid obesity with BMI of 45, generalized anxiety disorder and recurrent depression, anemia of chronic disease. Her last hospitalization was in May of this year which time she presented with severe symptomatic anemia with a hemoglobin of 5.3 status post blood transfusion. She had a previous episode 1 month before and presented with a hemoglobin of 5.6. On June 10, patient underwent EGD with biopsy and colonoscopy with snare polypectomy. Upper endoscopy was within normal limits with no evidence of esophagitis or peptic ulcer disease. Colonoscopy revealed a 5-6 mm sessile cecal polyp and a 5 mm ascending colon polyp both of which were removed by snare polypectomy and scattered sigmoidal diverticulosis. Descending colon polyp was tubular adenoma. Cecal polyp tubulovillous adenoma. Duodenal biopsy unremarkable. Patient presents to hospital due to shortness of breath. She denies having any chest pain, palpitations. No fever chills cough. No nausea or vomiting. She denies having any black stools. She states her lower extremity edema is at her baseline no change. Patient came into [facility] emergency center for evaluation initial hemoglobin 5.0, platelet count 97. Sodium 134, potassium 5.3, chloride 105, CO2 15, BUN 36 and creatinine 1.47. Blood sugar 405. Troponin 0.069. ProBNP 1110. EKG with junctional rhythm with PVCs. Chest x-ray reveals mild pulmonary interstitial edema that is a change compared to old exam from May 2019. Could relate to mild acute heart failure. Patient was given 2 doses of IV Lasix started on Protonix, admitted to the MedSurg floor. A repeat hemoglobin after 2 units of packed RBCs is 6.9 and patient will be transfused one more unit. Consults with GI, cardiology and hematology. 11/07: The patient yesterday relayed to the ER nurse that she had some suicidal ideation but no plan for any intervention. She apparently just felt overwhelmed. We will add in consult with psychiatry. Family have also related to staff that she has had periods of confusion and had gone to see Dr. Garcia with no significant workup or answers. She has been seen by Dr. Baker and capsule endoscopy has been started for today as well as magnesium citrate. A repeat troponin came back elevated at 1.710 and patient is followed by card iology. Patient has been afebrile, heart rate 72, blood pressure 149/75 of pulse ox 96% on room air. Patient denies having any chest pain, shortness of breath at rest, no lightheadedness or dizziness. No abdominal pain. No noted blood in stools and no emesis. Consult is pending with oncology. Repeat blood work reveals hemoglobin of 9.3, platelet count 79. BUN 30 and creatinine 1.03. Blood sugars run between 170 and 188. LDH 699. Magnesium 2.0. Anticipate need for subacute rehab. PT and OT have been added. 11/08: Repeat blood work revealsWBC 9.7, hemoglobin 9.0, platelet count 66. Sodium 136, potassium 4.4, chloride 100, CO2 28, BUN 26 and creatinine 1.11. Blood sugars run between 178 and 224. Levemir will be increased. Liver function tests normal. Echocardiogram reveals moderate concentric left hypertrophy, EF 65-70%, mild to moderate aortic valve sclerosis with moderate aortic stenosis, mild aortic regurgitation. Patient has been seen and followed by cardiology and acute coronary syndrome has been ruled out.Plavix is cleared for discontinuing and patient may be resumed on aspirin only once cleared by GI. Report from capsule endoscopy is pending. Evaluation by psychiatry is also pending. IV Lasix will be transitioned to oral. COVID-19 testing will be ordered for [facility] anticipated for tomorrow. patient has been evaluated by oncology and extensive laboratory studies have been ordered. IgG normal at 873, IgA low at 25.5, IgM low at 16.9. free kappa normal at 1.4, free lambda normal at 1.72. anticipate probable discharge to [facility] tomorrow. Teixeira catheter will be removed. Review of Systems Constitutional: No fever, no chills, no night sweats. No weight change. Reports weakness, Reports fatigue Reports lethargy. No daytime sleepiness. EENT: No headache. No blurred vision or double vision, no loss of vision. No loss of Hearing, no ringing in the ears, no dizziness. No nasal drainage or congestion. No epistaxis. No sore throat. Lungs: Reports shortness of breath, no cough, no sputum production. No wheezing. Cardiovascular: No chest pain, Reports lower extremity edemachronic. No palpitations. No paroxysmal nocturnal dyspnea. Reports orthopnea. No lightheadedness or dizziness. No syncopal episodes. Abdominal: No abdominal pain. No nausea, vomiting. No diarrhea. No constipation. No bloody or tarry stools. No loss of appetite. Genitourinary: No dysuria, increased frequency, urgency. No urinary retention. Musculoskeletal: No myalgias. Reports muscle weakness, no gait dysfunction, no frequent falls. No back pain. No neck pain. Integumentary: No wounds, no lesions. No rash or pruritus. No unusual bruising. No change in hair or nails. Neurologic: No aphasia. No facial droop. No change in mentation. No head injury. No headache. No paralysis. No paresthesia.episodes of confusion noted by family and staff. Psychiatric: No depression. No anxiety. No mood swings. Endocrine: No abnormal blood sugars. No weight change. No excessive sweating or thirst. No cold intolerance. Physical Examination Gen: This is a morbidly obese 74-year-old female. She is sin bed and appears to be in no acute distress. HEENT: Head is atraumatic, normocephalic. Pupils equal, round. Sclerae is anicteric. NECK: Supple. No JVD. No lymphadenopathy. No thyromegaly. LUNGS: Clear to auscultation. No wheezes or rhonchi. No intercostal retractions. HEART: Regular rate and rhythm. No murmur. ABDOMEN: Soft. Bowel sounds are present. No masses. No abdominal tendernes s.Teixeira draining clear marlin urine. EXTREMITIES: 1+ bilateral pedal edema. No calf tenderness. NEUROLOGICAL: Patient is awake, alert and oriented x3. Cranial nerves 2 through 12 are grossly intact. Assessment and Plan 1. Severe anemia status post transfusion of 3 units packed RBCs, unclear etiology. Consult with Dr. Baker and Dr. Mario. The patient has ch ronic anemia along with macrocytosis, thrombocytopenia. Maintain nothing by mouth status. Plavix, eliquis on hold. Protonix 40 mg IV push twice daily. 2. Acute diastolic heart failure. transition IV Lasix to oral 40 mg twice daily, monitordaily weights and I&O, daily electrolytes and renal function. Continue lisinopril 5 mg daily, metoprolol tartrate 50 mg twice daily, Aldactone 25 mg daily. Cardiology consult. 3. Acute kidney injury with chronic kidney disease stage III. Avoid nephro toxic agents. Continue lisinopril and Lasix for now. Monitor renal function daily. 4. Rule out underlying MDS with chronic anemia, thrombocytopenia and macrocytosis. Consult with Dr. Siddiqui. 5. Paroxysmal atrial fibrillation. No anticoagulation due to history of GI bleed. Continue amiodarone 200 mg twice daily, Lopressor 50 mg twice daily. Cardiology consultappreciated. 6. History of coronary artery disease with with multiple stent placements starting in 1997. Aspirin 81 mg daily, Plavix discontinued. Continue Lopressor. 7. Diabetes mellitus type 2, insulin requiring, uncontrolled with hyperglycemia. increase Levemir 22 units twice daily which is reduced from 40 units twice daily, continue NovoLog scale before meals and at bedtime. 8. Hypertension. Continue lisinopril 5 mg daily. 9. Hyperlipidemia. Continue atorvastatin 80 mg at bedtime. 10. Hypothyroidism. Continue levothyroxine 275 mg daily. 11. Fibromyalgia, stable. 12. History of breast cancer status post bilateral mastectomy. Continue Arimidex. 13. Generalized anxiety disorder and recurrent depression. Continue Effexor XR 150 mg the morning and 75 mg at bedtime. Consult with psychiatry. 14. Obstructive sleep apnea. Continue CPAP. 15. GI prophylaxis. Protonix IV twice daily. 16. DVT prophylaxis. SCD and LYNN hose 17. Possible suicidal ideation. Consult with psychiatry.patient denies any suicidal ideation. 18. Elevated troponins, acute coronary syndrome ruled out by cardiology. COVID-19 testing will be needed prior to discharge to subacute rehab if necessary. CODE STATUS: No code Discharge plan: on Wednesday. Impression and plan of care have been directed as dictated by the signing physician. Abril Riley nurse practitioner acting as scribe for signing physician. Objective - Vital Signs Vital signs: Vital Signs Temp 98.2 F 11/09/19 05:08 Pulse 68 11/09/19 05:08 Resp 18 11/09/19 05:08 BP 122/66 11/09/19 05:08 Pulse Ox 97 11/09/19 05:08 Intake & Output 11/08/19 11/09/19 11/09/19 18:59 06:59 18:59 Intake Total 600 Output Total 600 600 Balance 0 -600 Weight 118.5 kg Intake: Oral 600 Output: Urine 600 600 Uretheral (Teixeira) 600 Other: Voiding Method Indwelling Catheter Indwelling Catheter # Bowel Movements 0 - Labs CBC & Chem 7: 11/09/19 08:43 11/09/19 08:43 Labs: Abnormal Lab Results - Last 24 Hours (Table) 11/08/19 11/08/19 11/08/19 Range/Units 07:23 07:23 08:08 RBC 2.75 L (3.80-5.40) m/uL Hgb 9.3 L D (11.4-16.0) gm/dL Hct 28.4 L (34.0-46.0) % MCV 103.2 H (80.0-100.0) fL RDW 22.7 H (11.5-15.5) % Plt Count 79 L (150-450) k/uL Macrocytosis Marked A Retic Count 5.2 H (0.5-2.0) % BUN 30 H (7-17) mg/dL Glucose 170 H (74-99) mg/dL POC Glucose (mg/dL) (75-99) mg/dL Lactate Dehydrogenase (313-618) U/L Troponin I 1.710 H* (0.000-0.034) ng/mL Vitamin B12 1191.0 H (200.0-944.0) pg/mL 11/08/19 11/08/19 11/08/19 Range/Units 08:08 11:40 16:46 RBC (3.80-5.40) m/uL Hgb (11.4-16.0) gm/dL Hct (34.0-46.0) % MCV (80.0-100.0) fL RDW (11.5-15.5) % Plt Count (150-450) k/uL Macrocytosis Retic Count (0.5-2.0) % BUN (7-17) mg/dL Glucose (74-99) mg/dL POC Glucose (mg/dL) 188 H 191 H (75-99) mg/dL Lactate Dehydrogenase 699 H (313-618) U/L Troponin I (0.000-0.034) ng/mL Vitamin B12 (200.0-944.0) pg/mL 11/08/19 11/09/19 Range/Units 19:49 06:50 RBC (3.80-5.40) m/uL Hgb (11.4-16.0) gm/dL Hct (34.0-46.0) % MCV (80.0-100.0) fL RDW (11.5-15.5) % Plt Count (150-450) k/uL Macrocytosis Retic Count (0.5-2.0) % BUN (7-17) mg/dL Glucose (74-99) mg/dL POC Glucose (mg/dL) 213 H 178 H (75-99) mg/dL Lactate Dehydrogenase (313-618) U/L Troponin I (0.000-0.034) ng/mL Vitamin B12 (200.0-944.0) pg/mL
[2019-11-09 14:24] LABS: Albumin 3.34 g/dL (3.80-4.90); Gamma Globulin 0.78 g/dL (0.70-1.50)
--- NOTE | 2019-11-09 14:37 | CONS ---
CONSULTATION DATE OF CONSULTATION: 11/09/2019 REASON FOR CONSULTATION: Suicidal ideation. HISTORY OF PRESENT ILLNESS: The patient is 74 years old , female with medical history of coronary artery disease, status post stent in December 2018, atrial fibrillation, diabetes type 2, fibromyalgia, hypertension, hyperlipidemia, hypothyroidism, sleep apnea, history of right breast cancer and status post bilateral mastectomy and chronic anemia. Patient presented to the hospital with shortness of breath and her hemoglobin was low and she did receive blood transfusion. The patient stated that she has been on Effexor prescribed by her primary care physician for the last couple of years as her daughter told the primary care physician that her mother seemed down or said. Patient stated that she has been feeling better since she has been on Effexor and has been the same dose for the last 2 years, Effexor XR 225 mg daily. She denied any feeling of hopeless or helpless or despair. She denied any suicidal ideation or homicidal ideation. She stated that she just maybe she said it this because "I was frustrated from one test after the other." She stated that she loves life and her jacinto as a Buddhism, will not let her to hurt herself or anyone else. Regarding her past psychiatric history, there is no previous outpatient or inpatient treatment. The patient has been on Effexor prescribed by her primary care physician for the last 2 years. SUBSTANCE ABUSE HISTORY: Patient denied any current or previous substance abuse history. FAMILY PSYCHIATRIC HISTORY: Patient stated that her sister and her daughter they have had bouts of depression. Patient's mother had depression too. BRIEF SOCIAL HISTORY: Patient has one sister who is very supportive. She was only for 3-4 years, ended by divorce. She has one daughter who is 51 years of age and one grandchild. 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 MENTAL STATUS EXAMINATION: Patient appears her stated age, overweight, wearing hospital gown. She is alert, very pleasant, cooperative. She was lying in her bed without any agitation. Very polite. Her speech is soft, non pressured. She reported that her mood is okay. Affect is appropriate to thought content. She denied having any suicidal or homicidal ideation, intent, or plan. She denied any auditory or visual hallucination. There is no evidence of any delusional thinking and her thought process is linear and goal- directed. Patient stated that she is anxious about being in the hospital. She was alert, oriented x3. Her memory is grossly intact for the purpose of this session. Insight and judgment are good. IMPRESSION: Depressive disorder, unspecified. PLAN: Will continue her on Effexor 225 mg daily. Patient does not meet any criteria for any inpatient psychiatric admission. The patient can be discharged to rehab facility. Psychiatrists are signing off. Thank you for this consultation. DONNIE / NARCISO: [id number] /
[2019-11-09 17:30] LABS: Glucose,Whole Blood 239 mg/dL (75-99)
[2019-11-09] MEDS ORDERED: INSULIN ASPART (NovoLOG) 100 UNIT/ML VIAL SQ SCH (17:30)
[2019-11-09 19:24] LABS: Cancer Antigen 153 7.4 U/mL (0.0-32.3)
[2019-11-09 20:08] VITALS: RESP 18
[2019-11-09 20:12] LABS: Glucose,Whole Blood 201 mg/dL (75-99)
[2019-11-09] MEDS ORDERED: INSULIN DETEMIR (LEVEMIR) 100 UNIT/ML SYR SQ SCH (21:00)
[2019-11-09] MEDS: ATORVASTATIN 80 MG TAB PO SCH (21:14)
[2019-11-09] MEDS: MELATONIN 3 MG TABLET PO SCH (21:14)
[2019-11-09] MEDS: ANASTROZOLE 1 MG TAB PO SCH (21:15)
[2019-11-09] MEDS: VENLAFAXINE HCL ER 75 MG CAP PO SCH (21:15)
--- NOTE | 2019-11-09 22:43 | P.PN ---
Subjective Progress Note Date: 11/09/19 Principal diagnosis: Symptomatic anemia Patient is seen sitting bedside with no acute complaints. No signs or symptoms of GI bleeding tolerated her diet. Results of video capsule endoscopy relayed to the patient with no active bleeding or pathology to explain anemia in the small bowel.. Objective - Vital Signs Vital signs: Vital Signs Temp 98.3 F 11/09/19 11:47 Pulse 57 L 11/09/19 11:47 Resp 20 11/09/19 11:47 BP 125/53 11/09/19 11:47 Pulse Ox 98 11/09/19 11:47 Intake & Output 11/08/19 11/09/19 11/09/19 18:59 06:59 18:59 Intake Total 600 Output Total 600 600 Balance 0 -600 Weight 118.5 kg Intake: Oral 600 Output: Urine 600 600 Uretheral (Teixeira) 600 Other: Voiding Method Indwelling Catheter Indwelling Catheter Indwelling Catheter # Voids 1 # Bowel Movements 0 - Exam On physical examination, patient appears comfortable in no apparent distress. HEAD: Normocephalic, atraumatic. EYES: No scleral icterus. No conjunctival injection. MOUTH: No lesions, tongue midline. NECK: Trachea midline, no gross abnormalities. ABDOMEN: Soft, obese. Bowel sounds are positive. No organomegaly. No guarding or rigidity. EXTREMITIES: Bilateral pedal edema. SKIN: No rashes, no jaundice. NEUROLOGIC: Alert and oriented x3. No focal deficits. - Labs CBC & Chem 7: 11/09/19 08:43 11/09/19 08:43 Labs: Abnormal Lab Results - Last 24 Hours (Table) 11/08/19 11/08/19 11/08/19 Range/Units 07:23 08:08 08:08 RBC (3.80-5.40) m/uL Hgb (11.4-16.0) gm/dL Hct (34.0-46.0) % MCV (80.0-100.0) fL RDW (11.5-15.5) % Plt Count (150-450) k/uL Macrocytosis Sodium (137-145) mmol/L BUN (7-17) mg/dL Creatinine (0.52-1.04) mg/dL Glucose (74-99) mg/dL POC Glucose (mg/dL) (75-99) mg/dL Calcium (8.4-10.2) mg/dL Total Protein (6.3-8.2) g/dL Albumin (PEP) 3.34 L (3.80-4.90) g/dL Gkibs-5-Cthbyqtnz 0.49 H (0.10-0.40) g/dL Vitamin B12 1191.0 H (200.0-944.0) pg/mL IgA <25.5 L (60.0-350.0) mg/dL IgM <16.9 L (40.0-280.0) mg/dL 11/08/19 11/08/19 11/09/19 Range/Units 16:46 19:49 06:50 RBC (3.80-5.40) m/uL Hgb (11.4-16.0) gm/dL Hct (34.0-46.0) % MCV (80.0-100.0) fL RDW (11.5-15.5) % Plt Count (150-450) k/uL Macrocytosis Sodium (137-145) mmol/L BUN (7-17) mg/dL Creatinine (0.52-1.04) mg/dL Glucose (74-99) mg/dL POC Glucose (mg/dL) 191 H 213 H 178 H (75-99) mg/dL Calcium (8.4-10.2) mg/dL Total Protein (6.3-8.2) g/dL Albumin (PEP) (3.80-4.90) g/dL Zqycw-0-Dwuncjdgp (0.10-0.40) g/dL Vitamin B12 (200.0-944.0) pg/mL IgA (60.0-350.0) mg/dL IgM (40.0-280.0) mg/dL 11/09/19 11/09/19 11/09/19 Range/Units 08:43 08:43 11:04 RBC 2.66 L (3.80-5.40) m/uL Hgb 9.0 L (11.4-16.0) gm/dL Hct 27.9 L (34.0-46.0) % MCV 105.0 H (80.0-100.0) fL RDW 22.6 H (11.5-15.5) % Plt Count 66 L (150-450) k/uL Macrocytosis Marked A Sodium 136 L (137-145) mmol/L BUN 26 H (7-17) mg/dL Creatinine 1.11 H (0.52-1.04) mg/dL Glucose 219 H (74-99) mg/dL POC Glucose (mg/dL) 224 H (75-99) mg/dL Calcium 8.3 L (8.4-10.2) mg/dL Total Protein 6.0 L (6.3-8.2) g/dL Albumin (PEP) (3.80-4.90) g/dL Enkdo-3-Kljhmwhjg (0.10-0.40) g/dL Vitamin B12 (200.0-944.0) pg/mL IgA (60.0-350.0) mg/dL IgM (40.0-280.0) mg/dL Assessment and Plan (1) Symptomatic anemia Narrative/Plan: 74-year-old female with multiple medical comorbidities presenting for shortness of breath. Patient has a known history of anemia with previous evaluation and to 05/2019 significant for normal EGD with diverticulosis of polypectomy on colonoscopy. No prior video capsule endoscopy performed. She denies any signs or symptoms of GI bleeding including hematemesis, hematochezia or melena. No abdominal pain reported. No history of peptic ulcer disease. Patient had a macrocytic hypochromic anemia on presentation with associated thrombocytopenia and hematology has been consulted to see the patient. Video capsule endoscopy performed and reviewed with no active bleeding in the small bowel or pathology to explain anemia. Patient has now undergone full endoscopic evaluation with EGD, colonoscopy and video capsule endoscopy. Current Visit: Yes Status: Acute Code(s): D64.9 - ANEMIA, UNSPECIFIED SNOMED Code(s): 569855775 (2) Diverticulosis Current Visit: Yes Status: Acute Code(s): K57.90 - DVRTCLOS OF INTEST, PART UNSP, W/O PERF OR ABSCESS W/O BLEED SNOMED Code(s): 260746337 (3) History of adenomatous polyp of colon Current Visit: Yes Status: Acute Code(s): Z86.010 - PERSONAL HISTORY OF COLONIC POLYPS SNOMED Code(s): 956294599 Plan: Supportive care Okay for diet as tolerated Video capsule endoscopy reviewed with no old blood, active bleeding or pathology to explain anemia in the small bowel Patient is now undergone EGD, colonoscopy and video capsule endoscopy with no pathology to explain anemia Will defer further evaluation to the hematology service No plans for further endoscopic evaluation at this time Continue to monitor hemoglobin and hematocrit and transfuse as needed Thank you for allowing us to participate in the care of the patient, please call us back with any questions or concerns, the GI service will stand by at this time
[2019-11-10] MEDS: LEVOTHYROXINE 100 MCG TAB PO SCH (06:07)
[2019-11-10] MEDS: LEVOTHYROXINE 75 MCG TAB PO SCH (06:07)
[2019-11-10 06:48] LABS: Glucose,Whole Blood 154 mg/dL (75-99)
--- NOTE | 2019-11-10 07:48 | P.DS ---
Providers Date of admission: 11/06/19 23:52 Expected date of discharge: 11/10/19 Attending physician: Hortencia Houston Consults: 11/07/19 10:50 Consult Physician Routine Consulting Provider: Sola Summers Consult Reason/Comments: chf Do you want consulting provider notified?: Yes 11/07/19 10:51 Consult Physician Routine Consulting Provider: Saroj Siddiqui Consult Reason/Comments: acute on chronic anemia Do you want consulting provider notified?: Yes 11/08/19 16:12 Consult Physician Routine Consulting Provider: Shadi Milan Consult Reason/Comments: verbalization of suicidal thoughts, family report confusion Do you want consulting provider notified?: Yes Primary care physician: Jaxon Palacios [facility] Course: History of Present Illness This is a 74-year-old female patient of Dr. Palacios and Dr. Raymundo Pena with past medical history of coronary artery disease status post stent December 2018 with previous stent in 1997, paroxysmal atrial fibrillation, diabetes mellitus type 2, insulin requiring, fibromyalgia, hypertension, hyperlipidemia, hypothyroidism, obstructive sleep apnea on CPAP, history of right breast cancer status post bilateral mastectomy currently on Arimidex, morbid obesity with BMI of 45, generalized anxiety disorder and recurrent depression, anemia of chronic disease. Her last hospitalization was in May of this year which time she presented with severe symptomatic anemia with a hemoglobin of 5.3 status post blood transfusion. She had a previous episode 1 month before and presented with a hemoglobin of 5.6. On June 10, patient underwent EGD with biopsy and colonoscopy with snare polypectomy. Upper endoscopy was within normal limits with no evidence of esophagitis or peptic ulcer disease. Colonoscopy revealed a 5-6 mm sessile cecal polyp and a 5 mm ascending colon polyp both of which were removed by snare polypectomy and scattered sigmoidal diverticulosis. Descending colon polyp was tubular adenoma. Cecal polyp tubulovillous adenoma. Duodenal biopsy unremarkable. Patient presents to hospital due to shortness of breath. She denies having any chest pain, palpitations. No fever chills cough. No nausea or vomiting. She denies having any black stools. She states her lower extremity edema is at her baseline no change. Patient came into [facility] emergency center for evaluation initial hemoglobin 5.0, platelet count 97. Sodium 134, potassium 5.3, chloride 105, CO2 15, BUN 36 and creatinine 1.47. Blood sugar 405. Troponin 0.069. ProBNP 1110. EKG with junctional rhythm with PVCs. Chest x-ray reveals mild pulmonary interstitial edema that is a change compared to old exam from May 2019. Could relate to mild acute heart failure. Patient was given 2 doses of IV Lasix started on Protonix, admitted to the [facility] floor. A repeat hemoglobin after 2 units of packed RBCs is 6.9 and patient will be transfused one more unit. Consults with GI, cardiology and hematology. 11/07: The patient yesterday relayed to the ER nurse that she had some suicidal ideation but no plan for any intervention. She apparently just felt overwhelmed. We will add in consult with psychiatry. Family have also related to staff that she has had periods of confusion and had gone to see Dr. Garcia with no significant workup or answers. She has been seen by Dr. Baker and capsule endoscopy has been started for today as well as magnesium citrate. A repeat troponin came back elevated at 1.710 and patient is followed by cardiology. Patient has been afebrile, heart rate 72, blood pressure 149/75 of pulse ox 96% on room air. Patient denies having any chest pain, shortness of breath at rest, no lightheadedness or dizziness. No abdominal pain. No noted blood in stools and no emesis. Consult is pending with oncology. Repeat blood work reveals hemoglobin of 9.3, platelet count 79. BUN 30 and creatinine 1.03. Blood sugars run between 170 and 188. LDH 699. Magnesium 2.0. Anticipate need for subacute rehab. PT and OT have been added. 11/08: Repeat blood work revealsWBC 9.7, hemoglobin 9.0, platelet count 66. Sodium 136, potassium 4.4, chloride 100, CO2 28, BUN 26 and creatinine 1.11. Blood sugars run between 178 and 224. Levemir will be increased. Liver function tests normal. Echocardiogram reveals moderate concentric left hypertrophy, EF 65-70%, mild to moderate aortic valve sclerosis with moderate aortic stenosis, mild aortic regurgitation. Patient has been seen and followed by cardiology and acute coronary syndrome has been ruled out.Plavix is cleared for discontinuing and patient may be resumed on aspirin only once cleared by GI. Report from capsule endoscopy is pending. Evaluation by psychiatry is also pending. IV Lasix will be transitioned to oral. COVID-19 testing will be ordered for subacute rehab anticipated for tomorrow. patient has been evaluated by oncology and extensive laboratory studies have been ordered. IgG normal at 873, IgA low at 25.5, IgM low at 16.9. free kappa normal at 1.4, free lambda normal at 1.72. anticipate probable discharge to [facility] tomorrow. Teixeira catheter will be removed. 11/09: Patient has been seen by psychiatry and cleared for discharge. Psychiatry has signed off her case. Patient has been afebrile, heart rate 60, blood pressure 133/55, pulse ox 96% on room air. Endoscopy Came Back As Negative and Patient Was Resumed Back on Aspirin. Cardiology Has Cleared Her to Be off Plavix Permanently As Percent Was Almost 1 Year Ago. Repeat CBC this morning reveals hemoglobin of 8.3, platelet count 57. COVID-19 testing negative. Patient will be discharged to [facility] today in stable condition. Assessment and Plan 1. Severe anemia status post transfusion of 3 units packed RBCs, unclear etiology. 2. Acute diastolic heart failure. 3. Acute kidney injury with chronic kidney disease stage III. 4. Rule out underlying MDS with chronic anemia, thrombocytopenia and ma crocytosis. 5. Paroxysmal atrial fibrillation. 6. History of coronary artery disease with with multiple stent placements starting in 1997. 7. Diabetes mellitus type 2, insulin requiring, uncontrolled with hyperglycemia. 8. Hypertension. 9. Hyperlipidemia. 10. Hypothyroidism. 11. Fibromyalgia, stable. 12. History of breast cancer status post bilateral mastectomy. 13. Generalized anxiety disorder and recurrent depression. 14. Obstructive sleep apnea. Continue CPAP. 15. Possible suicidal ideation, by psychiatry and cleared for discharge. 18. Elevated troponins, acute coronary syndrome ruled out by cardiology. 19. COVID-19 infection not present. Discharge plan: [facility] on Wednesday. Impression and plan of care have been directed as dictated by the signing physician. Abril Riley nurse practitioner acting as scribe for signing physician. Patient Condition at Discharge: Good Plan - Discharge Summary Discharge Rx Participant: No New Discharge Prescriptions: New Ferrous Sulfate [Iron (65 MG Elemental)] 325 mg PO BID-W/MEALS tab Furosemide [Lasix] 40 mg PO BID@0900,1600 tab INSULIN ASPART (NovoLOG) [NovoLOG (formulary)] 0 unit SQ ACHS vial metFORMIN HCL [Glucophage] 1,000 mg PO BID #60 tab Continue Anastrozole [Arimidex] 1 mg PO HS Insulin Detemir (Levemir) [Levemir] 40 unit SQ BID Spironolactone [Aldactone] 25 mg PO DAILY Metoprolol Tartrate [Lopressor] 50 mg PO BID Venlafaxine HCl [Effexor XR] 150 mg PO DAILY Venlafaxine HCl [Effexor XR] 75 mg PO HS Melatonin 3 mg PO HS lisinopriL [Zestril] 5 mg PO DAILY Levothyroxine Sodium [Synthroid] 75 mcg PO DAILY Levothyroxine Sodium [Synthroid] 200 mcg PO DAILY Atorvastatin [Lipitor] 80 mg PO HS #30 tab Nitroglycerin Sl Tabs [Nitrostat] 0.4 mg SUBLINGUAL Q5M PRN #25 tab PRN Reason: Chest Pain Cyanocobalamin [Vitamin B-12] 500 mcg PO DAILY Amiodarone [Cordarone] 200 mg PO BID Iron(Unknown Dose) 1 tab PO DAILY Aspirin EC [Ecotrin Low Dose] 81 mg PO DAILY Docusate [Colace] 100 mg PO DAILY Ketoconazole 2% Cream [Nizoral 2%] 1 applic TOPICAL BID PRN PRN Reason: yeast infection abdominal fold Magnesium Chloride [Slow-Mag] 64 mg PO DAILY Gabapentin 600 mg PO Q6H PRN #12 tab PRN Reason: Pain traMADol HCL 50 mg PO TID PRN #9 tab PRN Reason: Pain Discontinued metFORMIN HCL 1,000 mg PO BID Furosemide [Lasix] 40 mg PO DAILY@0800 Furosemide [Lasix] 20 mg PO PC-SUPPER Clopidogrel [Plavix] 75 mg PO DAILY #30 tab INSULIN LISPRO (humaLOG) [humaLOG] See Protocol SQ AC-TID PRN PRN Reason: BS OVER 150 Potassium(Unknown Dose Otc) 1 tab PO DAILY Discharge Medication List Anastrozole [Arimidex] 1 mg PO HS 01/01/14 [History] Insulin Detemir (Levemir) [Levemir] 40 unit SQ BID 01/01/14 [History] Spironolactone [Aldactone] 25 mg PO DAILY 01/01/14 [History] Levothyroxine Sodium [Synthroid] 75 mcg PO DAILY 01/20/19 [History] Levothyroxine Sodium [Synthroid] 200 mcg PO DAILY 01/20/19 [History] Melatonin 3 mg PO HS 01/20/19 [History] Metoprolol Tartrate [Lopressor] 50 mg PO BID 01/20/19 [History] Venlafaxine HCl [Effexor XR] 75 mg PO HS 01/20/19 [History] Venlafaxine HCl [Effexor XR] 150 mg PO DAILY 01/20/19 [History] lisinopriL [Zestril] 5 mg PO DAILY 01/20/19 [History] Atorvastatin [Lipitor] 80 mg PO HS #30 tab 01/24/19 [Rx] Nitroglycerin Sl Tabs [Nitrostat] 0.4 mg SUBLINGUAL Q5M PRN #25 tab 01/24/19 [Rx] Amiodarone [Cordarone] 200 mg PO BID 05/03/19 [History] Cyanocobalamin [Vitamin B-12] 500 mcg PO DAILY 05/03/19 [History] Aspirin EC [Ecotrin Low Dose] 81 mg PO DAILY 11/07/19 [History] Docusate [Colace] 100 mg PO DAILY 11/07/19 [History] Iron(Unknown Dose) 1 tab PO DAILY 11/07/19 [History] Ketoconazole 2% Cream [Nizoral 2%] 1 applic TOPICAL BID PRN 11/07/19 [History] Magnesium Chloride [Slow-Mag] 64 mg PO DAILY 11/07/19 [History] Ferrous Sulfate [Iron (65 MG Elemental)] 325 mg PO BID-W/MEALS tab 11/10/19 [Rx] Furosemide [Lasix] 40 mg PO BID@0900,1600 tab 11/10/19 [Rx] Gabapentin 600 mg PO Q6H PRN #12 tab 11/10/19 [Rx] INSULIN ASPART (NovoLOG) [NovoLOG (formulary)] 0 unit SQ ACHS vial 11/10/19 [Rx] metFORMIN HCL [Glucophage] 1,000 mg PO BID #60 tab 11/10/19 [Rx] traMADol HCL 50 mg PO TID PRN #9 tab 11/10/19 [Rx] Follow up Appointment(s)/Referral(s): Rosalva Mcwilliams MD [STAFF PHYSICIAN] - 2 Weeks Jaxon Palacios MD [Primary Care Provider] - 1 Week (after discharge from [facility] )
[2019-11-10] MEDS: FERROUS SULFATE 325 MG TAB PO SCH (07:54)
[2019-11-10] MEDS: INSULIN ASPART (NovoLOG) 100 UNIT/ML VIAL SQ SCH ×2 (07:54→12:49)
[2019-11-10] MEDS: AMIODARONE 200 MG TAB PO SCH (07:55)
[2019-11-10] MEDS: FUROSEMIDE 40 MG TAB PO SCH (07:55)
[2019-11-10] MEDS: lisinopriL 5 MG TAB PO SCH (07:56)
[2019-11-10] MEDS: METOPROLOL TARTRATE 50 MG TAB PO SCH (07:56)
[2019-11-10] MEDS: MAGNESIUM OXIDE 400 MG TAB PO SCH (07:56)
[2019-11-10] MEDS: INSULIN DETEMIR (LEVEMIR) 100 UNIT/ML SYR SQ SCH (07:56)
[2019-11-10] MEDS: PANTOPRAZOLE 40 MG/10 ML VIAL IVP SCH (07:56)
[2019-11-10] MEDS: SPIRONOLACTONE 25 MG TAB PO SCH (07:57)
[2019-11-10] MEDS: VENLAFAXINE HCL ER 150 MG CAP PO SCH (07:57)
[2019-11-10] MEDS ORDERED: ASPIRIN 81 MG PO SCH (09:00)
[2019-11-10 09:01] LABS: Anisocytosis Moderate; HCT 26.2 % (34.0-46.0); HGB 8.3 gm/dL (11.4-16.0); Hypochromasia Moderate; MCHC 31.9 g/dL (31.0-37.0); MCV 106.6 fL (80.0-100.0); Macrocytosis Marked; Mean Platelet Volume 8.1; Poikilocytosis Slight; RBC 2.46 m/uL (3.80-5.40); RDW 21.9 % (11.5-15.5); WBC 8.7 k/uL (3.8-10.6)
[2019-11-10 09:07] LABS: Platelet Count 57 k/uL (150-450)
[2019-11-10 11:11] LABS: Glucose,Whole Blood 215 mg/dL (75-99)
[2019-11-10 11:37] VITALS: BP 113/50; PULSE 55; TEMP 98
--- NOTE | 2019-11-10 12:41 | P.PN ---
Subjective HISTORY OF PRESENTING ILLNESS This is a pleasant 74-year-old female past medical history significant for coronary artery disease status post PCI to the mid RCA December 2018, diabetes mellitus, hypertension, recurrent anemia, aortic stenosis and paroxysmal atrial fibrillation not on long-term anticoagulation secondary to recurrent anemia. She follows in the office with Dr. Mcwilliams. Echocardiogram revealed preserved LV systolic function with EF 65-70%, mild aortic sclerosis, mild AR, moderate aortic stenosis with mean gradient 21 mmHg and moderate mitral calcifications. No regional wall motion abnormalities. Blood pressure 125/53 heart rate 57 afebrile and maintaining oxygen saturation on room air. Laboratory data reviewed, WBC 9.7, hgb 9.0, plt 66, sodium 136, potassium 4.4, creatinine 1.11. 11/10/2019 Patient is seen and examined in no acute distress. She has no symptoms of chest pain, shortness of breath, dizziness or palpitations. Laboratory data reviewed, WBC 8.7, hemoglobin 8.3, platelets 57. Blood pressure 113/50 heart rate 55 afebrile maintaining oxygen saturation on room air. Aspirin has been resumed. PHYSICAL EXAMINATION CONSTITUTIONAL: No apparent distress. HEENT: Head is normocephalic. Pupils are equal, round. Sclerae anicteric. Mucous membranes of the mouth are moist. No JVD. No carotid bruit. CHEST EXAMINATION: Lungs are clear to auscultation. No chest wall tenderness is noted on palpation or with deep breathing. HEART EXAMINATION: Regular rate and rhythm. S1, S2 heard. Systolic ejection murmur at the base, no gallops or rub. EXTREMITIES: 2+ peripheral pulses, no lower extremity edema and no calf tenderness. ASSESSMENT Symptomatic anemia status post blood transfusion Troponin elevation secondary to anemia causing demand ischemia with no myocardial infarction Coronary artery disease status post PCI to the RCA Paroxysmal atrial fibrillation on long-term anticoagulation Aortic stenosis Hypertension Dyslipidemia Diabetes mellitus PLAN Stable from a cardiac perspective. Follow-up with Dr. Dr. Mcwilliams upon discharge. Nurse Practitioner note has been reviewed, I agree with a documented findings and plan of care. Patient was seen and examined. Objective - Vital Signs Vital signs: Vital Signs Temp 97.9 F 11/10/19 04:42 Pulse 60 11/10/19 04:42 Resp 18 11/10/19 04:42 BP 133/55 11/10/19 04:42 Pulse Ox 96 11/10/19 04:42 Intake & Output 11/09/19 11/10/19 11/10/19 18:59 06:59 18:59 Intake Total 290 Balance 290 Weight 120 kg Intake: Oral 290 Other: Voiding Method Indwelling Catheter Toilet Toilet # Voids 1 1 - Labs CBC & Chem 7: 11/10/19 08:36 11/09/19 08:43 Labs: Abnormal Lab Results - Last 24 Hours (Table) 11/08/19 11/08/19 11/08/19 Range/Units 08:08 08:08 08:08 RBC (3.80-5.40) m/uL Hgb (11.4-16.0) gm/dL Hct (34.0-46.0) % MCV (80.0-100.0) fL RDW (11.5-15.5) % Plt Count (150-450) k/uL Macrocytosis POC Glucose (mg/dL) (75-99) mg/dL Albumin (PEP) 3.34 L (3.80-4.90) g/dL Gbdsi-8-Rumvkjyuo 0.49 H (0.10-0.40) g/dL Methylmalonic Acid 0.88 H (<0.40) umol/L IgA <25.5 L (60.0-350.0) mg/dL IgM <16.9 L (40.0-280.0) mg/dL 11/09/19 11/09/19 11/09/19 Range/Units 11:04 17:29 20:11 RBC (3.80-5.40) m/uL Hgb (11.4-16.0) gm/dL Hct (34.0-46.0) % MCV (80.0-100.0) fL RDW (11.5-15.5) % Plt Count (150-450) k/uL Macrocytosis POC Glucose (mg/dL) 224 H 239 H 201 H (75-99) mg/dL Albumin (PEP) (3.80-4.90) g/dL Ltbpz-3-Owauvyfle (0.10-0.40) g/dL Methylmalonic Acid (<0.40) umol/L IgA (60.0-350.0) mg/dL IgM (40.0-280.0) mg/dL 11/10/19 11/10/19 Range/Units 06:44 08:36 RBC 2.46 L (3.80-5.40) m/uL Hgb 8.3 L (11.4-16.0) gm/dL Hct 26.2 L (34.0-46.0) % MCV 106.6 H (80.0-100.0) fL RDW 21.9 H (11.5-15.5) % Plt Count 57 L (150-450) k/uL Macrocytosis Marked A POC Glucose (mg/dL) 154 H (75-99) mg/dL Albumin (PEP) (3.80-4.90) g/dL Luglm-4-Wtsakbdfx (0.10-0.40) g/dL Methylmalonic Acid (<0.40) umol/L IgA (60.0-350.0) mg/dL IgM (40.0-280.0) mg/dL
== END 2019-11-10 13:58 | DRG 811 ==
LOC: EC 22:23 → 5NMEDONC 23:52 → 4SSUR 11-07 00:58 → 5NMEDONC 11-07 18:25
PROVIDERS: ADMIT Family Medicine; ATTEND Family Medicine
PROC: 30233N1 Transfusion of Nonautologous Red Blood Cells into Peripheral Vein, Percutaneous Approach (ICD-10-PCS; 2019-11-07)
PROC: 0DJ07ZZ Inspection of Upper Intestinal Tract, Via Natural or Artificial Opening (ICD-10-PCS; principal; 2019-11-08 07:30)
DX: D50.9 Iron deficiency anemia, unspecified (principal); I50.33 Acute on chronic diastolic (congestive) heart failure; F33.9 Major depressive disorder, recurrent, unspecified; I13.0 Hypertensive heart and chronic kidney disease with heart failure and stage 1 through stage 4 chronic kidney disease, or unspecified chronic kidney disease; I24.8 Other forms of acute ischemic heart disease; N17.9 Acute kidney failure, unspecified; R45.851 Suicidal ideations; Z68.42 Body mass index [BMI] 45.0-49.9, adult; Z86.010 Personal history of colon polyps; D63.8 Anemia in other chronic diseases classified elsewhere; D69.6 Thrombocytopenia, unspecified; D75.89 Other specified diseases of blood and blood-forming organs; E03.9 Hypothyroidism, unspecified; E11.22 Type 2 diabetes mellitus with diabetic chronic kidney disease; E66.01 Morbid (severe) obesity due to excess calories; E11.65 Type 2 diabetes mellitus with hyperglycemia; Z79.4 Long term (current) use of insulin; E78.5 Hyperlipidemia, unspecified; F41.1 Generalized anxiety disorder; G47.33 Obstructive sleep apnea (adult) (pediatric); I25.10 Atherosclerotic heart disease of native coronary artery without angina pectoris; Z20.828 Contact with and (suspected) exposure to other viral communicable diseases; I25.2 Old myocardial infarction; I08.2 Rheumatic disorders of both aortic and tricuspid valves; I27.20 Pulmonary hypertension, unspecified; I48.0 Paroxysmal atrial fibrillation; I49.3 Ventricular premature depolarization; I70.0 Atherosclerosis of aorta; K57.90 Diverticulosis of intestine, part unspecified, without perforation or abscess without bleeding; M79.7 Fibromyalgia; N18.3 Chronic kidney disease, stage 3 (moderate); R09.02 Hypoxemia; Z66 Do not resuscitate; Z99.89 Dependence on other enabling machines and devices; D46.9 Myelodysplastic syndrome, unspecified; Z98.49 Cataract extraction status, unspecified eye; Z79.01 Long term (current) use of anticoagulants; Z79.02 Long term (current) use of antithrombotics/antiplatelets; Z79.82 Long term (current) use of aspirin; Z79.890 Hormone replacement therapy; Z79.899 Other long term (current) drug therapy; Z81.8 Family history of other mental and behavioral disorders; Z82.49 Family history of ischemic heart disease and other diseases of the circulatory system; Z83.3 Family history of diabetes mellitus; Z85.3 Personal history of malignant neoplasm of breast; Z86.718 Personal history of other venous thrombosis and embolism; Z87.891 Personal history of nicotine dependence; Z90.13 Acquired absence of bilateral breasts and nipples; Z95.5 Presence of coronary angioplasty implant and graft; Z88.2 Allergy status to sulfonamides; Z90.49 Acquired absence of other specified parts of digestive tract
CPT/HCPCS: 36415; 36430; 71045; 80053; 82607; 82668; 82728; 82746; 82784; 83540; 83550; 83605; 83615; 83735; 83880; 83883; 83921; 84165; 84484; 85025; 85027; 85045; 85610; 85730; 86300; 86334; 86850; 86900; 86901; 86920; 87635; 91110; 93005; 93306; 94660; 96374; 96375; 96376; 99285

== ENCOUNTER 2019-12-10 16:54 | Inpatient (IN) | payer MEDICARE ==
[2019-12-10] MEDS ORDERED: SODIUM CHLORIDE 0.9% 1,000 ML IV STA ×2 (17:50)
[2019-12-10 18:24] LABS: Anisocytosis Moderate; Basophils % (A) 0 %; Eosinophils # (A) 0.2 k/uL (0-0.7); Eosinophils % (A) 2 %; HCT 21.1 % (34.0-46.0); Hypochromasia Moderate; Lymphocytes # (A) 1.6 k/uL (1.0-4.8); Lymphocytes % (A) 20 %; MCH 34.2 pg (25.0-35.0); MCHC 31.7 g/dL (31.0-37.0); MCV 107.7 fL (80.0-100.0); Macrocytosis Marked; Mean Platelet Volume 8.6; Monocytes # (A) 0.7 k/uL (0-1.0); Monocytes % (A) 9 %; Neutrophils # (A) 5.3 k/uL (1.3-7.7); Neutrophils % (A) 66 %; Poikilocytosis Moderate; RBC 1.96 m/uL (3.80-5.40); WBC 8.1 k/uL (3.8-10.6)
[2019-12-10 18:26] LABS: Albumin 3.8 g/dL (3.5-5.0); Calcium 8.7 mg/dL (8.4-10.2); Magnesium 1.6 mg/dL (1.6-2.3); Phosphorus 4.7 mg/dL (2.5-4.5); Total Bilirubin 0.4 mg/dL (0.2-1.3); Total Protein 6.4 g/dL (6.3-8.2)
[2019-12-10 18:28] LABS: Platelet Count 85 k/uL (150-450)
[2019-12-10 18:31] LABS: HGB 6.7 gm/dL (11.4-16.0)
[2019-12-10 18:37] LABS: INR 0.9 (<1.2); Prothrombin Time 9.9 sec (9.0-12.0)
[2019-12-10 18:38] LABS: Potassium 6.6 mmol/L (3.5-5.1)
[2019-12-10 18:41] LABS: Partial Thromboplastin Time 20.7 sec (22.0-30.0)
--- NOTE | 2019-12-10 18:51 | CT ---
EXAMINATION TYPE: CT brain ted wo con DATE OF EXAM: 12/10/2019 COMPARISON: None HISTORY: Fall, head injury. Patient on blood thinners. CT DLP: 1766.7 mGycm Automated exposure control for dose reduction was used. There is cerebral cortical atrophy. There is no mass effect nor midline shift. There is no sign of in tracranial hemorrhage. The calvarium is intact. Skull base is intact. There is normal aeration of the mastoid sinuses. Cervical vertebra show mild straightening. There is mild disc space narrowing in the mid and lower ce rvical spine. There is no compression fracture. Posterior elements are intact. Facet joints are intac t. Prevertebral soft tissues are intact. IMPRESSION: Cerebral atrophy. No acute intracranial abnormality. No change. Mild degenerative disc changes in the cervical spine. No fracture. No change.
[2019-12-10] MEDS ORDERED: INSULIN REGULAR 100 UNIT/ML VIAL IV ONE (18:53)
[2019-12-10] MEDS ORDERED: CALCIUM GLUCONATE 1 GM in SODIUM CHLORIDE 0.9% 100 ML IVPB ONE (18:53)
[2019-12-10] MEDS ORDERED: ALBUTEROL NEB (CONC) 2.5 MG/0.5 ML INHALATION ONE (18:53)
[2019-12-10] MEDS ORDERED: DEXTROSE 50% SYRINGE 50 ML IVP ONE (18:53)
[2019-12-10] MEDS ORDERED: SODIUM POLYSTYRENE SULFONATE 15 GM/60 ML BOTTLE PO ONE (18:53)
--- NOTE | 2019-12-10 18:59 | XR ---
EXAMINATION TYPE: XR chest 2V DATE OF EXAM: 12/10/2019 COMPARISON: 12/10/2019 HISTORY: Weakness TECHNIQUE: FINDINGS: There is some coarsening of interstitial markings. Heart appears enlarged. There is no defi nite pleural effusion. There are no hilar masses. IMPRESSION: Mild fibrotic changes. Cardiomegaly. Pulmonary vascularity increased compared to old exam but no definite heart failure.
--- NOTE | 2019-12-10 19:22 | ED ---
Fall HPI - General Chief Complaint: Fall Stated Complaint: Fall Time Seen by Provider: 12/10/19 17:27 Source: patient, RN notes reviewed, old records reviewed Mode of arrival: ambulatory - History of Present Illness Initial Comments: Patient is a 74-year-old female who presents today for concerns for weakness and frequent falls. Patient reports that she lost her balance today fell backward and hit her head on a closet broke the door. She denies loss of consciousness. She is on Plavix. Patient states that she's been treated for anemia and has had a blood transfusion this week. Patient's daughter states that they cannot determine the source of her patients losing blood from and being anemic. She states that she's been looking more pale today. Patient has had no recent fevers or chills. She denies shortness of breath. She states she's been very fatigued and sleeping most of the day. - Related Data Home Medications Medication Instructions Recorded Confirmed Anastrozole [Arimidex] 1 mg PO HS 01/01/14 12/10/19 Insulin Detemir (Levemir) [Levemir] 40 unit SQ BID 01/01/14 12/10/19 Spironolactone [Aldactone] 25 mg PO DAILY 01/01/14 12/10/19 Levothyroxine Sodium [Synthroid] 75 mcg PO DAILY 01/20/19 12/10/19 Levothyroxine Sodium [Synthroid] 200 mcg PO DAILY 01/20/19 12/10/19 Melatonin 3 mg PO HS 01/20/19 12/10/19 Metoprolol Tartrate [Lopressor] 50 mg PO BID 01/20/19 12/10/19 Venlafaxine HCl [Effexor XR] 75 mg PO HS 01/20/19 12/10/19 Venlafaxine HCl [Effexor XR] 150 mg PO DAILY 01/20/19 12/10/19 lisinopriL [Zestril] 5 mg PO DAILY 01/20/19 12/10/19 Amiodarone [Cordarone] 200 mg PO BID 05/03/19 12/10/19 Cyanocobalamin [Vitamin B-12] 500 mcg PO DAILY 05/03/19 12/10/19 Aspirin EC [Ecotrin Low Dose] 81 mg PO DAILY 11/07/19 12/10/19 Docusate [Colace] 100 mg PO DAILY 11/07/19 12/10/19 Ketoconazole 2% Cream [Nizoral 2%] 1 applic TOPICAL BID PRN 11/07/19 12/10/19 Magnesium Chloride [Slow-Mag] 64 mg PO DAILY 11/07/19 12/10/19 Clopidogrel [Plavix] 75 mg PO DAILY 12/10/19 12/10/19 Ferrous Sulfate [Iron (65 MG 325 mg PO DAILY 12/10/19 12/10/19 Elemental)] Furosemide [Lasix] 20 mg PO DAILY@1600 12/10/19 12/10/19 Furosemide [Lasix] 40 mg PO DAILY 12/10/19 12/10/19 INSULIN LISPRO (HumaLOG) [humaLOG] See Protocol SQ ACHS 12/10/19 12/10/19 Nitroglycerin Sl Tabs [Nitrostat] 0.4 mg SL Q5M PRN 12/10/19 12/10/19 Potassium Otc(Unknown Dose) 1 tab PO DAILY 12/10/19 12/10/19 Previous Rx's Medication Instructions Recorded Atorvastatin [Lipitor] 80 mg PO HS #30 tab 01/24/19 Gabapentin 600 mg PO Q6H PRN #12 tab 11/10/19 metFORMIN HCL [Glucophage] 1,000 mg PO BID #60 tab 11/10/19 traMADol HCL 50 mg PO TID PRN #9 tab 11/10/19 Allergies Allergy/AdvReac Type Severity Reaction Status Date / Time fluoxetine HCl [From Prozac] Allergy Itching Verified 12/10/19 19:41 gluten Allergy Abdominal Verified 12/10/19 19:41 Pain Sulfa (Sulfonamide Allergy Itching Verified 12/10/19 19:41 Antibiotics) Review of Systems ROS Statement: Those systems with pertinent positive or pertinent negative responses have been documented in the HPI. ROS Other: All systems not noted in ROS Statement are negative. Past Medical History Past Medical History: Atrial Fibrillation, Cancer, Diabetes Mellitus, Hypertension, Sleep Apnea/CPAP/BIPAP, Thyroid Disorder Additional Past Medical History / Comment(s): Heart disease, ocular neuritis Last Myocardial Infarction Date:: 2018 History of Any Multi-Drug Resistant Organisms: None Reported Past Surgical History: Appendectomy, Breast Surgery, Cholecystectomy, Heart Catheterization With Stent Additional Past Surgical History / Comment(s): bilateral masectomy, heart cath follow up in 2000 Past Anesthesia/Blood Transfusion Reactions: No Reported Reaction Additional Past Anesthesia/Blood Transfusion Reaction / Comment(s): Pt has received blood without reaction. Date of Last Stent Placement:: 1997 Past Psychological History: No Psychological Hx Reported Smoking Status: Former smoker, Never smoker Past Alcohol Use History: None Reported Past Drug Use History: None Reported - Past Family History Father Family Medical History: Coronary Artery Disease (CAD), Hypertension, Myocardial Infarction ([place]) Additional Family Medical History / Comment(s): Father at age 72 from coronary artery disease with history of diabetes Mother Family Medical History: Coronary Artery Disease (CAD) Additional Family Medical History / Comment(s): Mother at age 72 with history of coronary artery disease and diabetes. Sister(s) Additional Family Medical History / Comment(s): Patient has 1 sister with no major medical problems. Patient does not have. His. Patient has 1 daughter with no major medical problems. No history of breast cancer. General Exam - General Exam Comments Initial Comments: 74-year-old female. Alert and oriented 3. Patient appears in no acute distress. Patient is pale. Limitations: no limitations General appearance: alert, in no apparent distress Head exam: Present: atraumatic, normocephalic, normal inspection Eye exam: Present: normal appearance, PERRL, EOMI, other (Conjunctival pallor). Absent: scleral icterus, conjunctival injection, periorbital swelling ENT exam: Present: normal exam, mucous membranes moist Neck exam: Present: normal inspection. Absent: tenderness, meningismus, lymphadenopathy Respiratory exam: Present: normal lung sounds bilaterally. Absent: respiratory distress, wheezes, rales, rhonchi, stridor Cardiovascular Exam: Present: regular rate, normal rhythm, normal heart sounds. Absent: systolic murmur, diastolic murmur, rubs, gallop, clicks GI/Abdominal exam: Present: soft, normal bowel sounds. Absent: distended, tenderness, guarding, rebound, rigid Extremities exam: Present: normal inspection, full ROM, normal capillary refill. Absent: tenderness, pedal edema, joint swelling, calf tenderness Back exam: Present: normal inspection Neurological exam: Present: alert, oriented X3, CN II-XII intact Psychiatric exam: Present: normal affect, normal mood Skin exam: Present: warm, dry, intact, normal color. Absent: rash Course Vital Signs 12/10/19 12/10/19 12/10/19 17:15 19:35 19:47 Temperature 98.6 F Pulse Rate 54 L 56 L 54 L Respiratory 18 Rate Blood Pressure 134/54 O2 Sat by Pulse 96 Oximetry 12/10/19 12/10/19 12/10/19 20:33 20:43 20:52 Temperature 97.7 F 97.8 F 97.4 F L Pulse Rate 56 L 59 L 56 L Respiratory 18 20 20 Rate Blood Pressure 135/86 127/52 120/44 O2 Sat by Pulse Oximetry 12/10/19 21:13 Temperature 97.4 F L Pulse Rate 52 L Respiratory 20 Rate Blood Pressure 125/78 O2 Sat by Pulse Oximetry Procedures - [place] Protocol (Time Out) Nurse: Carmen Buckley Medical Decision Making - Medical Decision Making 74-year-old female presents for his first today with weakness frequent falls. She would lost her balance today and fell back and hit her head. CT of the brain is negative. She is on Plavix. Patient's hemoglobin was found be 6.7. Patient was given IV transfusion. She sounded have acute renal failure as well.Patient's lab work shows sodium 128. Potassium 6.6. BUN 54 and creatinine 1.68. Patient was had hyperkalemia protocol given calcium gluconate albuterol. Insulin and dextrose and Kayexalate. Patient does have a positive fecal occult related to low hemoglobin. Patient is given Protonix. Patient will be admitted at this time with GI consult. - Lab Data Result diagrams: 12/10/19 17:59 12/10/19 19:24 Lab Results 12/10/19 12/10/19 12/10/19 Range/Units 17:59 17:59 17:59 WBC 8.1 (3.8-10.6) k/uL RBC 1.96 L (3.80-5.40) m/uL Hgb 6.7 L* (11.4-16.0) gm/dL Hct 21.1 L (34.0-46.0) % MCV 107.7 H (80.0-100.0) fL MCH 34.2 (25.0-35.0) pg MCHC 31.7 (31.0-37.0) g/dL RDW 23.0 H (11.5-15.5) % Plt Count 85 L (150-450) k/uL Neutrophils % 66 % Lymphocytes % 20 % Monocytes % 9 % Eosinophils % 2 % Basophils % 0 % Neutrophils # 5.3 (1.3-7.7) k/uL Lymphocytes # 1.6 (1.0-4.8) k/uL Monocytes # 0.7 (0-1.0) k/uL Eosinophils # 0.2 (0-0.7) k/uL Basophils # 0.0 (0-0.2) k/uL Hypochromasia Moderate Poikilocytosis Moderate Anisocytosis Moderate Macrocytosis Marked A PT 9.9 (9.0-12.0) sec INR 0.9 (<1.2) APTT 20.7 L (22.0-30.0) sec Sodium 128 L (137-145) mmol/L Potassium 6.6 H* (3.5-5.1) mmol/L Chloride 99 (98-107) mmol/L Carbon Dioxide 19 L (22-30) mmol/L Anion Gap 10 mmol/L BUN 54 H (7-17) mg/dL Creatinine 1.68 H (0.52-1.04) mg/dL Est GFR (CKD-EPI)AfAm 34 (>60 ml/min/1.73 sqM) Est GFR (CKD-EPI)NonAf 30 (>60 ml/min/1.73 sqM) Glucose 139 H (74-99) mg/dL Lactic Ac Sepsis Rflx Plasma Lactic Acid Jeffry (0.7-2.0) mmol/L Calcium 8.7 (8.4-10.2) mg/dL Phosphorus 4.7 H (2.5-4.5) mg/dL Magnesium 1.6 (1.6-2.3) mg/dL Total Bilirubin 0.4 (0.2-1.3) mg/dL AST 28 (14-36) U/L ALT 31 (4-34) U/L Alkaline Phosphatase 80 (38-126) U/L Troponin I (0.000-0.034) ng/mL Total Protein 6.4 (6.3-8.2) g/dL Albumin 3.8 (3.5-5.0) g/dL Stool Occult Blood (Negative) Blood Type Blood Type Recheck Bld Type Recheck Status Antibody Screen Crossmatch Spec Expiration Date 12/10/19 12/10/19 12/10/19 Range/Units 17:59 17:59 17:59 WBC (3.8-10.6) k/uL RBC (3.80-5.40) m/uL Hgb (11.4-16.0) gm/dL Hct (34.0-46.0) % MCV (80.0-100.0) fL MCH (25.0-35.0) pg MCHC (31.0-37.0) g/dL RDW (11.5-15.5) % Plt Count (150-450) k/uL Neutrophils % % Lymphocytes % % Monocytes % % Eosinophils % % Basophils % % Neutrophils # (1.3-7.7) k/uL Lymphocytes # (1.0-4.8) k/uL Monocytes # (0-1.0) k/uL Eosinophils # (0-0.7) k/uL Basophils # (0-0.2) k/uL Hypochromasia Poikilocytosis Anisocytosis Macrocytosis PT (9.0-12.0) sec INR (<1.2) APTT (22.0-30.0) sec Sodium (137-145) mmol/L Potassium (3.5-5.1) mmol/L Chloride (98-107) mmol/L Carbon Dioxide (22-30) mmol/L Anion Gap mmol/L BUN (7-17) mg/dL Creatinine (0.52-1.04) mg/dL Est GFR (CKD-EPI)AfAm (>60 ml/min/1.73 sqM) Est GFR (CKD-EPI)NonAf (>60 ml/min/1.73 sqM) Glucose (74-99) mg/dL Lactic Ac Sepsis Rflx Plasma Lactic Acid Jeffry 2.8 H* (0.7-2.0) mmol/L Calcium (8.4-10.2) mg/dL Phosphorus (2.5-4.5) mg/dL Magnesium (1.6-2.3) mg/dL Total Bilirubin (0.2-1.3) mg/dL AST (14-36) U/L ALT (4-34) U/L Alkaline Phosphatase (38-126) U/L Troponin I <0.012 (0.000-0.034) ng/mL Total Protein (6.3-8.2) g/dL Albumin (3.5-5.0) g/dL Stool Occult Blood (Negative) Blood Type A Positive Blood Type Recheck A Pos Bld Type Recheck Status No Antibody Screen NEGATIVE Crossmatch See Detail Spec Expiration Date 12/13/2019 - 235812/10/19 12/10/19 12/10/19 Range/Units 18:39 19:24 20:28 WBC (3.8-10.6) k/uL RBC (3.80-5.40) m/uL Hgb (11.4-16.0) gm/dL Hct (34.0-46.0) % MCV (80.0-100.0) fL MCH (25.0-35.0) pg MCHC (31.0-37.0) g/dL RDW (11.5-15.5) % Plt Count (150-450) k/uL Neutrophils % % Lymphocytes % % Monocytes % % Eosinophils % % Basophils % % Neutrophils # (1.3-7.7) k/uL Lymphocytes # (1.0-4.8) k/uL Monocytes # (0-1.0) k/uL Eosinophils # (0-0.7) k/uL Basophils # (0-0.2) k/uL Hypochromasia Poikilocytosis Anisocytosis Macrocytosis PT (9.0-12.0) sec INR (<1.2) APTT (22.0-30.0) sec Sodium (137-145) mmol/L Potassium 6.6 H* (3.5-5.1) mmol/L Chloride (98-107) mmol/L Carbon Dioxide (22-30) mmol/L Anion Gap mmol/L BUN (7-17) mg/dL Creatinine (0.52-1.04) mg/dL Est GFR (CKD-EPI)AfAm (>60 ml/min/1.73 sqM) Est GFR (CKD-EPI)NonAf (>60 ml/min/1.73 sqM) Glucose (74-99) mg/dL Lactic Ac Sepsis Rflx Y Plasma Lactic Acid Jeffry (0.7-2.0) mmol/L Calcium (8.4-10.2) mg/dL Phosphorus (2.5-4.5) mg/dL Magnesium (1.6-2.3) mg/dL Total Bilirubin (0.2-1.3) mg/dL AST (14-36) U/L ALT (4-34) U/L Alkaline Phosphatase (38-126) U/L Troponin I (0.000-0.034) ng/mL Total Protein (6.3-8.2) g/dL Albumin (3.5-5.0) g/dL Stool Occult Blood Positive H (Negative) Blood Type Blood Type Recheck Bld Type Recheck Status Antibody Screen Crossmatch Spec Expiration Date 12/10/19 20:16 EKG performed at 1933 shows accelerated junctional rhythm with premature should return to the complexes and occasional PVCs. Prolonged QT. Ventricular rate of 74 bpm. Verbal sinus ectopy dressed ration 92 ms. QT QTc is 472/523 ms. - Radiology Data Radiology results: report reviewed EKG shows her bilateral free. No acute intracranial normality. No changes. Mild degenerative disc changes and cervical spine. No fracture. No change. Mild fibrotic changes. Cardiomegaly. Pulmonary vascularity increased compared old exam no definite heart failure. Disposition Clinical Impression: Anemia, GI bleed, Hyperkalemia Disposition: ADMITTED IP TO THIS HOSP Condition: Stable Is patient prescribed a controlled substance at d/c from ED?: No Referrals: Jaxon Palacios MD [Primary Care Provider] - 1-2 days Time of Disposition: 21:32
[2019-12-10] MEDS ORDERED: PANTOPRAZOLE 40 MG/10 ML VIAL IVP STA ×2 (20:04→21:28)
[2019-12-10] MEDS ORDERED: MORPHINE SULFATE 4 MG/ML SYRINGE IV PRN (21:33)
[2019-12-10] MEDS ORDERED: HYDROmorphone 0.5 MG/0.5 ML SYRINGE IVP PRN (21:33)
[2019-12-10] MEDS ORDERED: ONDANSETRON 4 MG/2 ML VIAL IVP PRN (21:33)
[2019-12-10] MEDS ORDERED: NALOXONE 0.4 MG/ML 1 ML VIAL IV PRN (21:33)
[2019-12-10] MEDS ORDERED: IBUPROFEN 400 MG TAB PO PRN (21:33)
[2019-12-10 22:16] LABS: Appearance,Urine Clear (Clear); Bacteria,Urine Many /hpf; Bilirubin,Urine Negative (Negative); Blood,Urine Negative (Negative); Color,Urine Light Yellow; Glucose,Urine (UA) Negative (Negative); Hyaline Casts,Urine 55 /lpf (0-2); Ketones,Urine Negative (Negative); Leukocyte Esterase,Urine Negative (Negative); Mucus,Urine Rare /hpf; Nitrite,Urine Positive (Negative); Protein,Urine Negative (Negative); RBC,Urine 1 /hpf (0-5); Specific Gravity,Urine 1.008 (1.001-1.035); Squamous Epithelial Cell,Urine 1 /hpf (0-4); Urobilinogen,Urine <2.0 mg/dL (<2.0); WBC,Urine 2 /hpf (0-5)
[2019-12-10] MEDS ORDERED: CLOTRIMAZOLE 1% CREAM 15 GM TUBE TOPICAL PRN (22:50)
[2019-12-10] MEDS ORDERED: NITROGLYCERIN SL TABS 0.4 MG TAB SUBLINGUAL PRN (22:50)
[2019-12-10] MEDS ORDERED: traMADol 50 MG TAB PO PRN (22:50)
[2019-12-10 23:17] LABS: Glucose,Whole Blood 163 mg/dL (75-99)
[2019-12-11] MEDS: ACETAMINOPHEN TAB 325 MG TAB PO PRN ×2 (00:36→23:41)
[2019-12-11 06:07] LABS: Glucose,Whole Blood 137 mg/dL (75-99)
[2019-12-11 06:41] LABS: Anisocytosis Moderate; Basophils % (A) 0 %; Eosinophils # (A) 0.1 k/uL (0-0.7); Eosinophils % (A) 2 %; HCT 21.1 % (34.0-46.0); Hypochromasia Slight; Lymphocytes % (A) 19 %; MCH 33.3 pg (25.0-35.0); MCHC 32.5 g/dL (31.0-37.0); MCV 102.5 fL (80.0-100.0); Mean Platelet Volume 8.1; Monocytes # (A) 0.5 k/uL (0-1.0); Monocytes % (A) 11 %; Neutrophils # (A) 3.2 k/uL (1.3-7.7); Neutrophils % (A) 65 %; Poikilocytosis Moderate; RBC 2.06 m/uL (3.80-5.40); RDW 23.1 % (11.5-15.5)
[2019-12-11 06:55] LABS: HGB 6.8 gm/dL (11.4-16.0)
[2019-12-11 06:56] LABS: Macrocytosis Marked; Platelet Count 71 k/uL (150-450)
[2019-12-11] MEDS: LEVOTHYROXINE 100 MCG TAB PO SCH (07:01)
[2019-12-11] MEDS: LEVOTHYROXINE 75 MCG TAB PO SCH (07:03)
[2019-12-11] MEDS: INSULIN DETEMIR (LEVEMIR) 100 UNIT/ML SYR SQ SCH ×2 (07:03→20:28)
[2019-12-11 07:13] LABS: Albumin 3.3 g/dL (3.5-5.0); Calcium 8.8 mg/dL (8.4-10.2); Potassium 5.1 mmol/L (3.5-5.1); Total Bilirubin 0.5 mg/dL (0.2-1.3); Total Protein 5.7 g/dL (6.3-8.2)
[2019-12-11] MEDS: SODIUM CHLORIDE 0.9% 1,000 ML IV SCH ×3 (08:11→17:01)
[2019-12-11] MEDS ORDERED: POTASSIUM OTC PO SCH (09:00)
[2019-12-11] MEDS ORDERED: NON FORMULARY DRUG (Magnesium Chloride 64 MG Tablet.Er) PO SCH (09:00)
--- NOTE | 2019-12-11 10:01 | P.HPIM ---
History of Present Illness H&P Date: 12/11/19 Chief Complaint: Shortness of breath This is a 74-year-old female patient of Dr. Palacios and Dr. Pena she has a past medical history of coronary artery disease status post stent placement, proximal atrial fibrillation, diabetes type 2, fibromyalgia, hypertension, hype rlipidemia, hypothyroidism, obstructive sleep apnea on CPAP, history of right sided breast cancer status post bilateral mastectomy, generalized anxiety, recurrent depression, anemia. She was recently hospitalized the beginning of October for symptomatic anemia and in May before that. She underwent an EGD with biopsy and colonoscopy with snare polypectomy. The upper endoscopy was essentially normal, colonoscopy revealed cecal polyps and ascending colon polyp. Patient was sent to [facility] after her hospital stay and received 1 unit of packed red blood cells before she was discharged home. Patient came into the emergency department for worsening shortness of breath and generalized weakness with frequent falls. Patient reports she lost her balance at home and fell backwards and hit her head. CT of the brain was negative, hemoglobin was 6.7 she was given 1 unit of packed red blood cells. Creatinine was 1.6, BUN 54, potassium was 6.6. Patient was given hyperkalemia protocol with calcium gluconate and albuterol, insulin and dextrose and Kayexalate. She had a positive fecal occult. This morning potassium is down to 5.1, hemoglobin 6.8, creatinine 1.3 BUN 43. Patient complains of a large bleeding hemorrhoid, surgery was consulted, as well as GI and hematology. Review of Systems Constitutional: Reports fatigue, Reports weakness, Denies chills, Denies fever Eyes: denies blurred vision, denies bulging eye, denies decreased vision, denies discharge Ears: deny: decreased hearing, ear discharge, earache, tinnitus Ears, nose, mouth and throat: Denies dysphagia, Denies epistaxis, Denies headache, Denies nasal congestion, Denies nasal discharge, Denies sinus pain, Denies sinus pressure, Denies sore throat Cardiovascular: Reports dyspnea on exertion, Reports edema, Reports shortness of breath, Denies chest pain, Denies high blood pressure, Denies lightheadedness, Denies palpitations, Denies syncope Respiratory: Reports dyspnea, Reports sleep apnea, Denies congestion, Denies cough, Denies cough with sputum, Denies pain, Denies pain on inspiration, Denies snoring, Denies wheezing Gastrointestinal: Reports hematochezia, Denies abdominal pain, Denies constipation, Denies diarrhea, Denies heartburn, Denies hematemesis, Denies loss of appetite, Denies nausea, Denies vomiting Genitourinary: Denies dysuria, Denies urgency, Denies urinary frequency Musculoskeletal: Reports frequent falls, Denies gait dysfunction, Denies low back pain, Denies myalgias, Denies neck stiffness Neurological: Denies change in mentation, Denies confusion, Denies gait dysfunction, Denies headaches, Denies loss of vision, Denies memory loss, Denies syncope, Denies tremors, Denies weakness Psychiatric: Reports anxiety, Reports depression, Denies confusion, Denies insomnia, Denies irritability, Denies memory loss, Denies mood swings, Denies suicidal ideation Endocrine: Denies cold intolerance, Denies fatigue, Denies flushing, Denies heat intolerance Hematologic/Lymphatic: Denies lymphadenopathy, Denies lymphedema Past Medical History Past Medical History: Atrial Fibrillation, Cancer, Diabetes Mellitus, Hyp ertension, Sleep Apnea/CPAP/BIPAP, Thyroid Disorder Additional Past Medical History / Comment(s): Heart disease, ocular neuritis Last Myocardial Infarction Date:: 2018 History of Any Multi-Drug Resistant Organisms: None Reported Past Surgical History: Appendectomy, Breast Surgery, Cholecystectomy, Heart Catheterization With Stent Additional Past Surgical History / Comment(s): bilateral masectomy, heart cath follow up in 2000 Past Anesthesia/Blood Transfusion Reactions: No Reported Reaction Additional Past Anesthesia/Blood Transfusion Reaction / Comment(s): Pt has received blood without reaction. Date of Last Stent Placement:: 1997 Past Psychological History: No Psychological Hx Reported Additional Psychological History / Comment(s): Pt has her silvia and son in law living with her. She ambulates with a rollator. Her silvia is her caregiver. She no longer drives, her silvia takes her to appts. She has a cpap, glucometer. Smoking Status: Former smoker, Never smoker Past Alcohol Use History: None Reported Additional Past Alcohol Use History / Comment(s): Patient was a smoker of 4 packs per day for 20 years and quit approximately 20 years ago. She denies any marijuana, illicit drug use. No alcohol use. She was at home with her daughter. She does have a CPAP and nebulizer. Patient is . Past Drug Use History: None Reported - Past Family History Father Family Medical History: Coronary Artery Disease (CAD), Hypertension, Myocardial Infarction (NM) Additional Family Medical History / Comment(s): Father at age 72 from coronary artery disease with history of diabetes Mother Family Medical History: Coronary Artery Disease (CAD) Additional Family Medical History / Comment(s): Mother at age 72 with history of coronary artery disease and diabetes. Sister(s) Additional Family Medical History / Comment(s): Patient has 1 sister with no major medical problems. Patient does not have. His. Patient has 1 daughter with no major medical problems. No history of breast cancer. Medications and Allergies Home Medications Medication Instructions Recorded Confirmed Type Anastrozole [Arimidex] 1 mg PO HS 01/01/14 12/10/19 History Insulin Detemir (Levemir) [Levemir] 40 unit SQ BID 01/01/14 12/10/19 History Spironolactone [Aldactone] 25 mg PO DAILY 01/01/14 12/10/19 History Levothyroxine Sodium [Synthroid] 75 mcg PO DAILY 01/20/19 12/10/19 History Levothyroxine Sodium [Synthroid] 200 mcg PO DAILY 01/20/19 12/10/19 History Melatonin 3 mg PO HS 01/20/19 12/10/19 History Metoprolol Tartrate [Lopressor] 50 mg PO BID 01/20/19 12/10/19 History Venlafaxine HCl [Effexor XR] 75 mg PO HS 01/20/19 12/10/19 History Venlafaxine HCl [Effexor XR] 150 mg PO DAILY 01/20/19 12/10/19 History lisinopriL [Zestril] 5 mg PO DAILY 01/20/19 12/10/19 History Atorvastatin [Lipitor] 80 mg PO HS #30 tab 01/24/19 12/10/19 Rx Amiodarone [Cordarone] 200 mg PO BID 05/03/19 12/10/19 History Cyanocobalamin [Vitamin B-12] 500 mcg PO DAILY 05/03/19 12/10/19 History Aspirin EC [Ecotrin Low Dose] 81 mg PO DAILY 11/07/19 12/10/19 History Docusate [Colace] 100 mg PO DAILY 11/07/19 12/10/19 History Ketoconazole 2% Cream [Nizoral 2%] 1 applic TOPICAL BID PRN 11/07/19 12/10/19 History Magnesium Chloride [Slow-Mag] 64 mg PO DAILY 11/07/19 12/10/19 History Gabapentin 600 mg PO Q6H PRN #12 tab 11/10/19 12/10/19 Rx metFORMIN HCL [Glucophage] 1,000 mg PO BID #60 tab 11/10/19 12/10/19 Rx traMADol HCL 50 mg PO TID PRN #9 tab 11/10/19 12/10/19 Rx Clopidogrel [Plavix] 75 mg PO DAILY 12/10/19 12/10/19 History Ferrous Sulfate [Iron (65 MG 325 mg PO DAILY 12/10/19 12/10/19 History Elemental)] Furosemide [Lasix] 20 mg PO DAILY@1600 12/10/19 12/10/19 History Furosemide [Lasix] 40 mg PO DAILY 12/10/19 12/10/19 History INSULIN LISPRO (HumaLOG) [humaLOG] See Protocol SQ ACHS 12/10/19 12/10/19 History Nitroglycerin Sl Tabs [Nitrostat] 0.4 mg SL Q5M PRN 12/10/19 12/10/19 History Potassium Otc(Unknown Dose) 1 tab PO DAILY 12/10/19 12/10/19 History Allergies Allergy/AdvReac Type Severity Reaction Status Date / Time fluoxetine HCl [From Prozac] Allergy Itching Verified 12/10/19 19:41 gluten Allergy Abdominal Verified 12/10/19 19:41 Pain Sulfa (Sulfonamide Allergy Itching Verified 12/10/19 19:41 Antibiotics) Physical Exam Vitals: Vital Signs Temp Pulse Pulse Resp BP BP Pulse Ox 12/11/19 04:00 98.3 F 81 20 146/63 97 12/11/19 00:00 97.8 F 78 18 143/65 94 L 12/10/19 23:55 97.8 F 56 L 18 134/78 12/10/19 22:03 97.8 F 63 20 121/58 98 12/10/19 21:58 97.8 F 78 18 143/65 94 L 12/10/19 21:13 97.4 F L 52 L 20 125/78 12/10/19 20:52 97.4 F L 56 L 20 120/44 12/10/19 20:43 97.8 F 59 L 20 127/52 12/10/19 20:33 97.7 F 56 L 18 135/86 12/10/19 19:47 54 L 12/10/19 19:35 56 L 12/10/19 17:15 98.6 F 54 L 18 134/54 96 Intake and Output 12/10/19 12/11/19 12/11/19 22:59 06:59 14:59 Intake Total 0 310 Balance 0 310 Intake: Blood Product 0 310 Rc As-1 Unit 0 310 [id number] Other: # Bowel Movements 4 Weight 117.934 kg 123.9 kg - Constitutional General appearance: morbidly obese - EENT Eyes: PERRLA, normal appearance Ears: bilateral: normal - Neck Neck: no lymphadenopathy, normal ROM Thyroid: right: normal size, negative: enlarged, nodule - Respiratory Respiratory: bilateral: CTA, negative: dullness, rhonchi, wheezing - Cardiovascular Rhythm: irregularly irregular Heart sounds: normal: S1, S2 - Gastrointestinal General gastrointestinal: no distended, no hepatomegaly, normal bowel sounds, no organomegaly, no splenomegaly, no tenderness - Integumentary Integumentary: no decreased turgor, normal, pale - Neurologic Neurologic: CNII-XII intact - Musculoskeletal Musculoskeletal: generalized weakness, strength equal bilaterally - Psychiatric Psychiatric: A&O x's 3, appropriate affect, intact judgment & insight Results CBC & Chem 7: 12/11/19 06:11 12/11/19 06:11 Labs: Abnormal Lab Results - Last 24 Hours (Table) 12/10/19 12/10/19 12/10/19 Range/Units 17:59 17:59 17:59 RBC 1.96 L (3.80-5.40) m/uL Hgb 6.7 L* (11.4-16.0) gm/dL Hct 21.1 L (34.0-46.0) % MCV 107.7 H (80.0-100.0) fL RDW 23.0 H (11.5-15.5) % Plt Count 85 L (150-450) k/uL Macrocytosis Marked A APTT 20.7 L (22.0-30.0) sec Sodium 128 L (137-145) mmol/L Potassium 6.6 H* (3.5-5.1) mmol/L Carbon Dioxide 19 L (22-30) mmol/L BUN 54 H (7-17) mg/dL Creatinine 1.68 H (0.52-1.04) mg/dL Glucose 139 H (74-99) mg/dL POC Glucose (mg/dL) (75-99) mg/dL Plasma Lactic Acid Jeffry (0.7-2.0) mmol/L Phosphorus 4.7 H (2.5-4.5) mg/dL Total Protein (6.3-8.2) g/dL Albumin (3.5-5.0) g/dL Urine Nitrite (Negative) Urine Bacteria (None) /hpf Hyaline Casts (0-2) /lpf Urine Mucus (None) /hpf Stool Occult Blood (Negative) Crossmatch 12/10/19 12/10/19 12/10/19 Range/Units 17:59 17:59 19:24 RBC (3.80-5.40) m/uL Hgb (11.4-16.0) gm/dL Hct (34.0-46.0) % MCV (80.0-100.0) fL RDW (11.5-15.5) % Plt Count (150-450) k/uL Macrocytosis APTT (22.0-30.0) sec Sodium (137-145) mmol/L Potassium 6.6 H* (3.5-5.1) mmol/L Carbon Dioxide (22-30) mmol/L BUN (7-17) mg/dL Creatinine (0.52-1.04) mg/dL Glucose (74-99) mg/dL POC Glucose (mg/dL) (75-99) mg/dL Plasma Lactic Acid Jeffry 2.8 H* (0.7-2.0) mmol/L Phosphorus (2.5-4.5) mg/dL Total Protein (6.3-8.2) g/dL Albumin (3.5-5.0) g/dL Urine Nitrite (Negative) Urine Bacteria (None) /hpf Hyaline Casts (0-2) /lpf Urine Mucus (None) /hpf Stool Occult Blood (Negative) Crossmatch See Detail 12/10/19 12/10/19 12/10/19 Range/Units 20:28 21:51 23:16 RBC (3.80-5.40) m/uL Hgb (11.4-16.0) gm/dL Hct (34.0-46.0) % MCV (80.0-100.0) fL RDW (11.5-15.5) % Plt Count (150-450) k/uL Macrocytosis APTT (22.0-30.0) sec Sodium (137-145) mmol/L Potassium (3.5-5.1) mmol/L Carbon Dioxide (22-30) mmol/L BUN (7-17) mg/dL Creatinine (0.52-1.04) mg/dL Glucose (74-99) mg/dL POC Glucose (mg/dL) 163 H (75-99) mg/dL Plasma Lactic Acid Jeffry (0.7-2.0) mmol/L Phosphorus (2.5-4.5) mg/dL Total Protein (6.3-8.2) g/dL Albumin (3.5-5.0) g/dL Urine Nitrite Positive H (Negative) Urine Bacteria Many H (None) /hpf Hyaline Casts 55 H (0-2) /lpf Urine Mucus Rare H (None) /hpf Stool Occult Blood Positive H (Negative) Crossmatch 12/11/19 12/11/19 12/11/19 Range/Units 06:07 06:11 06:11 RBC 2.06 L (3.80-5.40) m/uL Hgb 6.8 L* (11.4-16.0) gm/dL Hct 21.1 L (34.0-46.0) % MCV 102.5 H D (80.0-100.0) fL RDW 23.1 H (11.5-15.5) % Plt Count 71 L (150-450) k/uL Macrocytosis Marked A APTT (22.0-30.0) sec Sodium (137-145) mmol/L Potassium (3.5-5.1) mmol/L Carbon Dioxide (22-30) mmol/L BUN 43 H (7-17) mg/dL Creatinine 1.31 H (0.52-1.04) mg/dL Glucose 122 H (74-99) mg/dL POC Glucose (mg/dL) 137 H (75-99) mg/dL Plasma Lactic Acid Jeffry (0.7-2.0) mmol/L Phosphorus (2.5-4.5) mg/dL Total Protein 5.7 L (6.3-8.2) g/dL Albumin 3.3 L (3.5-5.0) g/dL Urine Nitrite (Negative) Urine Bacteria (None) /hpf Hyaline Casts (0-2) /lpf Urine Mucus (None) /hpf Stool Occult Blood (Negative) Crossmatch Thrombosis Risk Factor Assmnt - Choose All That Apply Each Factor Represents 1 point: Obesity (BMI >25) Each Risk Factor Represents 3 Points: Age 75 years or older Thrombosis Risk Factor Assessment Total Risk Factor Score: 4 Thrombosis Risk Factor Assessment Level: Moderate Risk Assessment and Plan Plan: 1. Severe anemia. Status post blood transfusion, the patient has chronic anemia along with macrocytosis, thrombocytopenia. GI consulted as well as hematology and surgery. Continue iron supplements, 2. Hyperkalemia. Hyperkalemia protocol was given, repeat potassium 5.1. 3. Acute kidney injury with chronic kidney disease stage III. Avoid nephrotoxic agents. Continue lisinopril and Lasix. Monitor renal function daily. 4. Paroxysmal atrial fibrillation. No anticoagulation due to history of GI bleed. Continue amiodarone 200 mg twice daily, Lopressor 50 mg twice daily. 5. History of coronary artery disease with with multiple stent placements starting in 1997. Aspirin 81 mg daily, Plavix discontinued. Continue Lopressor. 6. Diabetes mellitus type 2. Levemir 40 units twice daily 7. Hypertension. Continue lisinopril 5 mg daily. 8. Hyperlipidemia. Continue atorvastatin 80 mg at bedtime. 9. Hypothyroidism. Continue levothyroxine 275 mg daily. 10. Fibromyalgia, stable. 11. History of breast cancer status post bilateral mastectomy. Continue Arimi dex. 12. Generalized anxiety disorder and recurrent depression. Continue Effexor XR 150 mg the morning and 75 mg at bedtime. 13. Obstructive sleep apnea. Continue CPAP. 14. GI prophylaxis. Protonix. 15. DVT prophylaxis. SCD and LYNN hose CODE STATUS: No code The above impression and plan of care have been discussed and directed by signing physician. Isabella Schneider nurse practitioner acting as scribe for signing physician.
--- NOTE | 2019-12-11 11:04 | P.CRDCN ---
History of Present Illness Consult date: 12/11/19 Requesting physician: Bereket Holliday Reason for Consult (text): cardiac history, on Plavix Chief complaint: Shortness of breath, weakness and fall History of present illness: This is a pleasant 74-year-old female with past medical history significant for coronary artery disease and prior stenting of the RCA and December 2018, diabetes, hypertension, hyperlipidemia, paroxysmal atrial fib rillation for which she is not on anticoagulation, history of anemia requiring blood transfusion, patient underwent an EGD and colonoscopy in May of this year, EGD was normal, colonoscopy showed 5-6 mm cecal polyp and 5 mm ascending colon polyp which was removed at that time. She also had an echo cardiac gram with Doppler study performed in October of this year which revealed a normal ejection fraction with moderate aortic stenosis. Patient presented to the hospital on this admission with symptoms of progressive weakness, loss of balance and fall. She denies having any loss of consciousness. Her chest x-ray on presentation here showed mild fibrotic change, with increase in pulmonary vas cularity. CT of the head and spine did not reveal any significant findings, EKG showed normal sinus rhythm with a first-degree AV block. Blood pressure 146/60 with a heart rate in the 80s respirations at 20. Lab work was reviewed, white blood cell count on admission 8.1, hemoglobin 6.7, platelet count 85 this morning the white blood cell count 5.0, hemoglobin 6.8, platelet count 71. Sodium on admission 128, potassium 6.6, chloride 99, CO2 19, BUN 54 and creatinine 1.6. This morning sodium 138, potassium 5.1, BUN 43 and creatinine 1.3, magnesium was 1.6. Troponin 0.012. Stool for occult blood was positive. The patient had been on Plavix 75 mg daily along with a baby aspirin at home pr ior to admission. A cardiology consultation was requested because the patient is on Plavix and aspirin at home, for the stent which was placed in the right coronary artery in December 2018. Patient denies having any chest discomfort and states overall that her breathing has been stable. Past Medical History Past Medical History: Atrial Fibrillation, Cancer, Diabetes Mellitus, Hypertension, Sleep Apnea/CPAP/BIPAP, Thyroid Disorder Additional Past Medical History / Comment(s): Heart disease, ocular neuritis Last Myocardial Infarction Date:: 2018 History of Any Multi-Drug Resistant Organisms: None Reported Past Surgical History: Appendectomy, Breast Surgery, Cholecystectomy, Heart Catheterization With Stent Additional Past Surgical History / Comment(s): bilateral masectomy, heart cath follow up in 2000 Past Anesthesia/Blood Transfusion Reactions: No Reported Reaction Additional Past Anesthesia/Blood Transfusion Reaction / Comment(s): Pt has received blood without reaction. Date of Last Stent Placement:: 1997 Past Psychological History: No Psychological Hx Reported Additional Psychological History / Comment(s): Pt has her silvia and son in law living with her. She ambulates with a rollator. Her silvia is her caregiver. She no longer drives, her silvia takes her to appts. She has a cpap, glucometer. Smoking Status: Former smoker, Never smoker Past Alcohol Use History: None Reported Additional Past Alcohol Use History / Comment(s): Patient was a smoker of 4 packs per day for 20 years and quit approximately 20 years ago. She denies any marijuana, illicit drug use. No alcohol use. She was at home with her daughter. She does have a CPAP and nebulizer. Patient is . Past Drug Use History: None Reported - Past Family History Father Family Medical History: Coronary Artery Disease (CAD), Hypertension, Myocardial Infarction ([place]) Additional Family Medical History / Comment(s): Father at age 72 from coronary artery disease with history of diabetes Mother Family Medical History: Coronary Artery Disease (CAD) Additional Family Medical History / Comment(s): Mother at age 72 with history of coronary artery disease and diabetes. Sister(s) Additional Family Medical History / Comment(s): Patient has 1 sister with no major medical problems. Patient does not have. His. Patient has 1 daughter with no major medical problems. No history of breast cancer. Medications and Allergies Home Medications Medication Instructions Recorded Confirmed Type Anastrozole [Arimidex] 1 mg PO HS 01/01/14 12/10/19 History Insulin Detemir (Levemir) [Levemir] 40 unit SQ BID 01/01/14 12/10/19 History Spironolactone [Aldactone] 25 mg PO DAILY 01/01/14 12/10/19 History Levothyroxine Sodium [Synthroid] 75 mcg PO DAILY 01/20/19 12/10/19 History Levothyroxine Sodium [Synthroid] 200 mcg PO DAILY 01/20/19 12/10/19 History Melatonin 3 mg PO HS 01/20/19 12/10/19 History Metoprolol Tartrate [Lopressor] 50 mg PO BID 01/20/19 12/10/19 History Venlafaxine HCl [Effexor XR] 75 mg PO HS 01/20/19 12/10/19 History Venlafaxine HCl [Effexor XR] 150 mg PO DAILY 01/20/19 12/10/19 History lisinopriL [Zestril] 5 mg PO DAILY 01/20/19 12/10/19 History Atorvastatin [Lipitor] 80 mg PO HS #30 tab 01/24/19 12/10/19 Rx Amiodarone [Cordarone] 200 mg PO BID 05/03/19 12/10/19 History Cyanocobalamin [Vitamin B-12] 500 mcg PO DAILY 05/03/19 12/10/19 History Aspirin EC [Ecotrin Low Dose] 81 mg PO DAILY 11/07/19 12/10/19 History Docusate [Colace] 100 mg PO DAILY 11/07/19 12/10/19 History Ketoconazole 2% Cream [Nizoral 2%] 1 applic TOPICAL BID PRN 11/07/19 12/10/19 History Magnesium Chloride [Slow-Mag] 64 mg PO DAILY 11/07/19 12/10/19 History Gabapentin 600 mg PO Q6H PRN #12 tab 11/10/19 12/10/19 Rx metFORMIN HCL [Glucophage] 1,000 mg PO BID #60 tab 11/10/19 12/10/19 Rx traMADol HCL 50 mg PO TID PRN #9 tab 11/10/19 12/10/19 Rx Clopidogrel [Plavix] 75 mg PO DAILY 12/10/19 12/10/19 History Ferrous Sulfate [Iron (65 MG 325 mg PO DAILY 12/10/19 12/10/19 History Elemental)] Furosemide [Lasix] 20 mg PO DAILY@1600 12/10/19 12/10/19 History Furosemide [Lasix] 40 mg PO DAILY 12/10/19 12/10/19 History INSULIN LISPRO (HumaLOG) [humaLOG] See Protocol SQ ACHS 12/10/19 12/10/19 History Nitroglycerin Sl Tabs [Nitrostat] 0.4 mg SL Q5M PRN 09/13/20 09/13/20 History Potassium Otc(Unknown Dose) 1 tab PO DAILY 12/10/19 12/10/19 History Allergies Allergy/AdvReac Type Severity Reaction Status Date / Time fluoxetine HCl [From Prozac] Allergy Itching Verified 12/10/19 19:41 gluten Allergy Abdominal Verified 12/10/19 19:41 Pain Sulfa (Sulfonamide Allergy Itching Verified 12/10/19 19:41 Antibiotics) Physical Exam Vitals: Vital Signs Temp Pulse Pulse Resp BP BP Pulse Ox 12/11/19 04:00 98.3 F 81 20 146/63 97 12/11/19 00:00 97.8 F 78 18 143/65 94 L 12/10/19 23:55 97.8 F 56 L 18 134/78 12/10/19 22:03 97.8 F 63 20 121/58 98 12/10/19 21:58 97.8 F 78 18 143/65 94 L 12/10/19 21:13 97.4 F L 52 L 20 125/78 12/10/19 20:52 97.4 F L 56 L 20 120/44 12/10/19 20:43 97.8 F 59 L 20 127/52 12/10/19 20:33 97.7 F 56 L 18 135/86 12/10/19 19:47 54 L 12/10/19 19:35 56 L 12/10/19 17:15 98.6 F 54 L 18 134/54 96 Intake and Output 12/10/19 12/11/19 12/11/19 22:59 06:59 14:59 Intake Total 0 310 Balance 0 310 Intake: Blood Product 0 310 Rc As-1 Unit 0 310 [id number] Other: # Bowel Movements 4 Weight 117.934 kg 123.9 kg PHYSICAL EXAMINATION: GENERAL: 74-year-old female in no acute distress at the time of my examination HEENT: Head is atraumatic, normocephalic. Pupils equal, round. Sclera anicteric. Conjunctiva are clear. Mucous membranes of the mouth are moist. Neck is supple. There is no elevated jugular venous pressure. No carotid bruit is heard. HEART EXAMINATION: Heart S1 S2 1 systolic ejection murmur is heard CHEST EXAMINATION: Lungs are clear to auscultation and precussion. No chest wall tenderness is noted on palpation or with deep breathing. ABDOMEN: Soft, obese, nontender. Bowel sounds are heard. No organomegaly noted. EXTREMITIES: 2+ peripheral pulses with no evidence of peripheral edema and no c ellie tenderness noted. NEUROLOGIC patient is awake, alert and oriented 3 . . Results 12/11/19 06:11 12/11/19 06:11 Cardiac Enzymes 12/10/19 12/10/19 12/11/19 Range/Units 17:59 17:59 06:11 AST 28 23 (14-36) U/L Troponin I <0.012 (0.000-0.034) ng/mL Coagulation 12/10/19 Range/Units 17:59 PT 9.9 (9.0-12.0) sec APTT 20.7 L (22.0-30.0) sec CBC 12/10/19 12/11/19 Range/Units 17:59 06:11 WBC 8.1 5.0 (3.8-10.6) k/uL RBC 1.96 L 2.06 L (3.80-5.40) m/uL Hgb 6.7 L* 6.8 L* (11.4-16.0) gm/dL Hct 21.1 L 21.1 L (34.0-46.0) % Plt Count 85 L 71 L (150-450) k/uL Comprehensive Metabolic Panel 12/10/19 12/10/19 12/11/19 Range/Units 17:59 19:24 06:11 Sodium 128 L 138 (137-145) mmol/L Potassium 6.6 H* 6.6 H* 5.1 (3.5-5.1) mmol/L Chloride 99 107 (98-107) mmol/L Carbon Dioxide 19 L 24 (22-30) mmol/L BUN 54 H 43 H (7-17) mg/dL Creatinine 1.68 H 1.31 H (0.52-1.04) mg/dL Glucose 139 H 122 H (74-99) mg/dL Calcium 8.7 8.8 (8.4-10.2) mg/dL AST 28 23 (14-36) U/L ALT 31 28 (4-34) U/L Alkaline Phosphatase 80 75 (38-126) U/L Total Protein 6.4 5.7 L (6.3-8.2) g/dL Albumin 3.8 3.3 L (3.5-5.0) g/dL Current Medications Generic Name Dose Route Start Last Admin Trade Name Freq PRN Reason Stop Dose Admin Acetaminophen 650 mg 12/10/19 21:33 12/11/19 00:36 Acetaminophen Tab 325 Mg Tab PO 650 mg Q6HR PRN Administration Mild Pain or Fever > 100.5 Amiodarone HCl 200 mg 12/11/19 09:00 Amiodarone 200 Mg Tab PO BID COUNTS INCLUDE 234 BEDS AT THE [facility] Anastrozole 1 mg 12/11/19 21:00 Anastrozole 1 Mg Tab PO HS COUNTS INCLUDE 234 BEDS AT THE [facility] Atorvastatin Calcium 80 mg 12/11/19 21:00 Atorvastatin 80 Mg Tab PO HS COUNTS INCLUDE 234 BEDS AT THE [facility] Clotrimazole 1 applic 12/10/19 22:50 Clotrimazole 1% Cream 15 Gm Tube TOPICAL BID PRN yeast infection abdominal fold Cyanocobalamin 500 mcg 12/11/19 09:00 Cyanocobalamin 500 Mcg Tab PO DAILY COUNTS INCLUDE 234 BEDS AT THE [facility] Docusate Sodium 100 mg 12/11/19 09:00 Docusate 100 Mg Cap PO DAILY COUNTS INCLUDE 234 BEDS AT THE [facility] Ferrous Sulfate 325 mg 12/11/19 09:00 Ferrous Sulfate 325 Mg Tab PO DAILY COUNTS INCLUDE 234 BEDS AT THE [facility] Furosemide 40 mg 12/11/19 09:00 Furosemide 20 Mg Tab PO DAILY COUNTS INCLUDE 234 BEDS AT THE [facility] Furosemide 20 mg 12/11/19 16:00 Furosemide 20 Mg Tab PO DAILY@1600 COUNTS INCLUDE 234 BEDS AT THE [facility] Gabapentin 600 mg 12/10/19 22:50 Gabapentin 300 Mg Cap PO Q6H PRN Pain Hydromorphone HCl 0.5 mg 12/10/19 21:33 Hydromorphone 0.5 Mg/0.5 Ml Syringe IVP Q3HR PRN Moderate Pain Sodium Chloride 1,000 mls @ 100 mls/hr 12/10/19 21:45 12/11/19 08:59 Saline 0.9% IV Not Given .Q10H COUNTS INCLUDE 234 BEDS AT THE [facility] Ibuprofen 400 mg 12/10/19 21:33 Ibuprofen 400 Mg Tab PO Q6HR PRN Mild Pain or Fever > 100.5 Insulin Detemir 40 unit 12/11/19 07:00 12/11/19 07:03 Insulin Detemir (Levemir) 100 Unit/Ml Syr SQ 40 unit BID@0700,2100 COUNTS INCLUDE 234 BEDS AT THE [facility] Administration Levothyroxine Sodium 75 mcg 12/11/19 06:30 12/11/19 07:03 Levothyroxine 75 Mcg Tab PO 75 mcg DAILY@0630 COUNTS INCLUDE 234 BEDS AT THE [facility] Administration Levothyroxine Sodium 200 mcg 12/11/19 06:30 12/11/19 07:01 Levothyroxine 100 Mcg Tab PO 200 mcg DAILY@0630 COUNTS INCLUDE 234 BEDS AT THE [facility] Administration Lisinopril 5 mg 12/11/19 09:00 Lisinopril 5 Mg Tab PO DAILY COUNTS INCLUDE 234 BEDS AT THE [facility] Melatonin 3 mg 12/11/19 21:00 Melatonin 3 Mg Tablet PO HS COUNTS INCLUDE 234 BEDS AT THE [facility] Metformin HCl 1,000 mg 12/11/19 09:00 Metformin 500 Mg Tab PO BID COUNTS INCLUDE 234 BEDS AT THE [facility] Metoprolol Tartrate 50 mg 12/11/19 09:00 Metoprolol Tartrate 50 Mg Tab PO BID COUNTS INCLUDE 234 BEDS AT THE [facility] Morphine Sulfate 4 mg 12/10/19 21:33 Morphine Sulfate 4 Mg/Ml Syringe IV Q4HR PRN Severe Pain Naloxone HCl 0.2 mg 12/10/19 21:33 Naloxone 0.4 Mg/Ml 1 Ml Vial IV Q2M PRN Opioid Reversal Nitroglycerin 0.4 mg 12/10/19 22:50 Nitroglycerin Sl Tabs 0.4 Mg Tab SUBLINGUAL Q5M PRN Chest Pain Ondansetron HCl 4 mg 12/10/19 21:33 Ondansetron 4 Mg/2 Ml Vial IVP Q8HR PRN Nausea And Vomiting Spironolactone 25 mg 12/11/19 09:00 Spironolactone 25 Mg Tab PO DAILY FATEMEH Tramadol HCl 50 mg 12/10/19 22:50 Tramadol 50 Mg Tab PO TID PRN Pain Venlafaxine HCl 75 mg 12/11/19 21:00 Venlafaxine Hcl Er 75 Mg Cap PO HS COUNTS INCLUDE 234 BEDS AT THE [facility] Venlafaxine HCl 150 mg 12/11/19 09:00 Venlafaxine Hcl Er 150 Mg Cap PO DAILY COUNTS INCLUDE 234 BEDS AT THE [facility] Intake and Output 12/10/19 12/11/19 12/11/19 22:59 06:59 14:59 Intake Total 0 310 Balance 0 310 Intake: Blood Product 0 310 Rc As-1 Unit 0 310 [id number] Other: # Bowel Movements 4 Weight 117.934 kg 123.9 kg 12/11/19 06:11 12/11/19 06:11 EKG Interpretations (text) EKG shows a normal sinus rhythm with a first-degree AV block Assessment and Plan Plan: Assessment and plan #1 symptoms of weakness with associated falls, no clear-cut evidence of syncope. Symptoms likely secondary to anemia. #2 coronary artery disease with prior RCA stenting in December 2018 #3 hypertension #4 diabetes #5 hyperlipidemia #6 moderate aortic stenosis #7 paroxysmal atrial fibrillation, not on anticoagulation #8 history of anemia #9 sleep apnea #10 hypothyroidism #11 history of right-sided breast cancer status post bilateral mastectomy #12 anxiety and depression #13 hyperkalemia #14 acute kidney injury Plan We will continue to hold the Plavix and aspirin. Once the patient is cleared from an anemia perspective, we would recommend resuming a baby aspirin only and discontinuing the Plavix. We will not repeat an echocardiogram on this admission as the patient recently had one performed in October which showed a normal ejection fraction with moderate aortic stenosis. DNP note has been reviewed, I agree with a documented findings and plan of care. Patient was seen and examined.
[2019-12-11 11:51] LABS: Glucose,Whole Blood 109 mg/dL (75-99)
--- NOTE | 2019-12-11 11:58 | P.CONS ---
History of Present Illness - Reason for Consult Consult date: 12/11/19 Anemia and Cancer Requesting physician: Bereket Holliday - Chief Complaint Recurrent Falls - History of Present Illness Ms Pinto is pleasant [place], who is known to our practice for history of DVT and Breast cancer. Primary oncologist Dr. Saroj Siddiqui, last seen in April 2017. She was diagnosed with Right sided breast cancer in 2008 and underwent a bilateral mastectomy with rt axillary dissection, which was done in 12/05. She was started on Arimidex. She did not follow since mid 2010 onwards, and ran out of Arimidex in the summer of 2011. She called the office in 05/11 and restablished care. She also started back on Arimidex. She did not keep her appt in 12/09. She ran out of Arimidex about 2 weeks prior to her appt here on 03/31/13. She resumed it after that visit, and reported good compliance st her visit here on 11/04/13. 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 She reported multiple side effects, and was changed to Coumadin, which she tolerated well. In the interim, she was diagnosed with diastolic CHF in the fall of 2015, and had cataract surgery in and 01/11. She had labs and PET done to check for mets, which were negative. She got her doppler done in 10/12, showing some residual clot with recanalization. She stopped coumadin in late 09/12. She was advised to start back on Arimidex to complete 10 yrs, but did not do so as she could not afford it. Breast Next Testing in 09/12 was negative. She resumed Arimidex in 01/12. Last follow-up in office in 2017. Recently presented to hospital in October with hemoglobin of 5.4. She was previously seen in May of this year for the same and underwent Full GI work-up with EGD with biopsy and colonoscopy with snare polypectomy. Upper endoscopy was within normal limits. Colonoscopy revealed cecal polyp and a 5 mm ascending colon polyp both of which were removed. also, mention of scattered sigmoidal diverticulosis. During that hospital stay she also underwent capsule endoscopy. She now presents back to [facility] with complaints of recurrent falls and anemia. She has flat affect, denies bleeding. Per notes and family she has been having increased states of confusion, forgetfulness, and has seen neurology for this. Review of Systems All systems: negative (due to her poor historian at baseline question accuracy of information.) Past Medical History Past Medical History: Atrial Fibrillation, Cancer, Diabetes Mellitus, Hypertensi on, Sleep Apnea/CPAP/BIPAP, Thyroid Disorder Additional Past Medical History / Comment(s): Heart disease, ocular neuritis Last Myocardial Infarction Date:: 2018 History of Any Multi-Drug Resistant Organisms: None Reported Past Surgical History: Appendectomy, Breast Surgery, Cholecystectomy, Heart Ca theterization With Stent Additional Past Surgical History / Comment(s): bilateral masectomy, heart cath follow up in 2000 Past Anesthesia/Blood Transfusion Reactions: No Reported Reaction Additional Past Anesthesia/Blood Transfusion Reaction / Comm: Pt has received blood without reaction. Date of Last Stent Placement:: 1997 Past Psychological History: No Psychological Hx Reported Additional Psychological History / Comment(s): Pt has her silvia and son in law living with her. She ambulates with a rollator. Her silvia is her caregiver. She no longer drives, her silvia takes her to appts. She has a cpap, glucometer. Smoking Status: Former smoker, Never smoker Past Alcohol Use History: None Reported Additional Past Alcohol Use History / Comment(s): Patient was a smoker of 4 packs per day for 20 years and quit approximately 20 years ago. She denies any marijuana, illicit drug use. No alcohol use. She was at home with her daughter. She does have a CPAP and nebulizer. Patient is . Past Drug Use History: None Reported - Past Family History Father Family Medical History: Coronary Artery Disease (CAD), Hypertension, Myocardial Infarction ([place]) Additional Family Medical History / Comment(s): Father at age 72 from coronary artery disease with history of diabetes Mother Family Medical History: Coronary Artery Disease (CAD) Additional Family Medical History / Comment(s): Mother at age 72 with history of coronary artery disease and diabetes. Sister(s) Additional Family Medical History / Comment(s): Patient has 1 sister with no major medical problems. Patient does not have. His. Patient has 1 daughter with no major medical problems. No history of breast cancer. Medications and Allergies Home Medications Medication Instructions Recorded Confirmed Type Anastrozole [Arimidex] 1 mg PO HS 01/01/14 12/10/19 History Insulin Detemir (Levemir) [Levemir] 40 unit SQ BID 01/01/14 12/10/19 History Spironolactone [Aldactone] 25 mg PO DAILY 01/01/14 12/10/19 History Levothyroxine Sodium [Synthroid] 75 mcg PO DAILY 01/20/19 12/10/19 History Levothyroxine Sodium [Synthroid] 200 mcg PO DAILY 01/20/19 12/10/19 History Melatonin 3 mg PO HS 01/20/19 12/10/19 History Metoprolol Tartrate [Lopressor] 50 mg PO BID 01/20/19 12/10/19 History Venlafaxine HCl [Effexor XR] 75 mg PO HS 01/20/19 12/10/19 History Venlafaxine HCl [Effexor XR] 150 mg PO DAILY 01/20/19 12/10/19 History lisinopriL [Zestril] 5 mg PO DAILY 01/20/19 12/10/19 History Atorvastatin [Lipitor] 80 mg PO HS #30 tab 01/24/19 12/10/19 Rx Amiodarone [Cordarone] 200 mg PO BID 05/03/19 12/10/19 History Cyanocobalamin [Vitamin B-12] 500 mcg PO DAILY 05/03/19 12/10/19 History Aspirin EC [Ecotrin Low Dose] 81 mg PO DAILY 11/07/19 12/10/19 History Docusate [Colace] 100 mg PO DAILY 11/07/19 12/10/19 History Ketoconazole 2% Cream [Nizoral 2%] 1 applic TOPICAL BID PRN 11/07/19 12/10/19 History Magnesium Chloride [Slow-Mag] 64 mg PO DAILY 11/07/19 12/10/19 History Gabapentin 600 mg PO Q6H PRN #12 tab 11/10/19 12/10/19 Rx metFORMIN HCL [Glucophage] 1,000 mg PO BID #60 tab 11/10/19 12/10/19 Rx traMADol HCL 50 mg PO TID PRN #9 tab 11/10/19 12/10/19 Rx Clopidogrel [Plavix] 75 mg PO DAILY 12/10/19 12/10/19 History Ferrous Sulfate [Iron (65 MG 325 mg PO DAILY 12/10/19 12/10/19 History Elemental)] Furosemide [Lasix] 20 mg PO DAILY@1600 12/10/19 12/10/19 History Furosemide [Lasix] 40 mg PO DAILY 12/10/19 12/10/19 History INSULIN LISPRO (HumaLOG) [humaLOG] See Protocol SQ ACHS 12/10/19 12/10/19 History Nitroglycerin Sl Tabs [Nitrostat] 0.4 mg SL Q5M PRN 12/10/19 12/10/19 History Potassium Otc(Unknown Dose) 1 tab PO DAILY 12/10/19 12/10/19 History Allergies Allergy/AdvReac Type Severity Reaction Status Date / Time fluoxetine HCl [From Prozac] Allergy Itching Verified 12/10/19 19:41 gluten Allergy Abdominal Verified 12/10/19 19:41 Pain Sulfa (Sulfonamide Allergy Itching Verified 12/10/19 19:41 Antibiotics) Physical Exam Vitals: Vital Signs Temp Pulse Pulse Resp BP BP Pulse Ox 12/11/19 10:58 97.9 F 88 18 152/67 12/11/19 10:49 98.4 F 84 18 133/60 12/11/19 08:00 97.1 F L 84 18 139/64 96 12/11/19 04:00 98.3 F 81 20 146/63 97 12/11/19 00:00 97.8 F 78 18 143/65 94 L 12/10/19 23:55 97.8 F 56 L 18 134/78 12/10/19 22:03 97.8 F 63 20 121/58 98 12/10/19 21:58 97.8 F 78 18 143/65 94 L 12/10/19 21:13 97.4 F L 52 L 20 125/78 12/10/19 20:52 97.4 F L 56 L 20 120/44 12/10/19 20:43 97.8 F 59 L 20 127/52 12/10/19 20:33 97.7 F 56 L 18 135/86 12/10/19 19:47 54 L 12/10/19 19:35 56 L 12/10/19 17:15 98.6 F 54 L 18 134/54 96 Intake and Output 12/10/19 12/11/19 12/11/19 22:59 06:59 14:59 Intake Total 0 310 0 Balance 0 310 0 Intake: Blood Product 0 310 0 Rc As-1 Unit 0 310 [id number] Rc Irr As1 Unit 0 [id number] Other: # Bowel Movements 4 Weight 117.934 kg 123.9 kg - Constitutional General appearance: cooperative, morbidly obese, no acute distress - EENT Eyes: EOMI, dentition normal ENT: hard of hearing, NA/AT, normal oropharynx - Neck Neck: normal ROM - Respiratory Respiratory: bilateral: diminished (bases, mild increased effort) - Cardiovascular Rhythm: irregularly irregular leg Peripheral Edema: bilateral: Trace - Gastrointestinal General gastrointestinal: normal bowel sounds, soft, tenderness - Integumentary Integumentary: pale - Neurologic non-focal - Musculoskeletal Musculoskeletal: generalized weakness - Psychiatric POor historian, fatigued Psychiatric: A&O x's 3 Results CBC & Chem 7: 12/11/19 06:11 12/11/19 06:11 Labs: Abnormal Lab Results - Last 24 Hours (Table) 12/10/19 12/10/19 12/10/19 Range/Units 17:59 17:59 17:59 RBC 1.96 L (3.80-5.40) m/uL Hgb 6.7 L* (11.4-16.0) gm/dL Hct 21.1 L (34.0-46.0) % MCV 107.7 H (80.0-100.0) fL RDW 23.0 H (11.5-15.5) % Plt Count 85 L (150-450) k/uL Macrocytosis Marked A APTT 20.7 L (22.0-30.0) sec Sodium 128 L (137-145) mmol/L Potassium 6.6 H* (3.5-5.1) mmol/L Carbon Dioxide 19 L (22-30) mmol/L BUN 54 H (7-17) mg/dL Creatinine 1.68 H (0.52-1.04) mg/dL Glucose 139 H (74-99) mg/dL POC Glucose (mg/dL) (75-99) mg/dL Plasma Lactic Acid Jeffry (0.7-2.0) mmol/L Phosphorus 4.7 H (2.5-4.5) mg/dL Total Protein (6.3-8.2) g/dL Albumin (3.5-5.0) g/dL Urine Nitrite (Negative) Urine Bacteria (None) /hpf Hyaline Casts (0-2) /lpf Urine Mucus (None) /hpf Stool Occult Blood (Negative) Crossmatch 12/10/19 12/10/19 12/10/19 Range/Units 17:59 17:59 19:24 RBC (3.80-5.40) m/uL Hgb (11.4-16.0) gm/dL Hct (34.0-46.0) % MCV (80.0-100.0) fL RDW (11.5-15.5) % Plt Count (150-450) k/uL Macrocytosis APTT (22.0-30.0) sec Sodium (137-145) mmol/L Potassium 6.6 H* (3.5-5.1) mmol/L Carbon Dioxide (22-30) mmol/L BUN (7-17) mg/dL Creatinine (0.52-1.04) mg/dL Glucose (74-99) mg/dL POC Glucose (mg/dL) (75-99) mg/dL Plasma Lactic Acid Jeffry 2.8 H* (0.7-2.0) mmol/L Phosphorus (2.5-4.5) mg/dL Total Protein (6.3-8.2) g/dL Albumin (3.5-5.0) g/dL Urine Nitrite (Negative) Urine Bacteria (None) /hpf Hyaline Casts (0-2) /lpf Urine Mucus (None) /hpf Stool Occult Blood (Negative) Crossmatch See Detail 12/10/19 12/10/19 12/10/19 Range/Units 20:28 21:51 23:16 RBC (3.80-5.40) m/uL Hgb (11.4-16.0) gm/dL Hct (34.0-46.0) % MCV (80.0-100.0) fL RDW (11.5-15.5) % Plt Count (150-450) k/uL Macrocytosis APTT (22.0-30.0) sec Sodium (137-145) mmol/L Potassium (3.5-5.1) mmol/L Carbon Dioxide (22-30) mmol/L BUN (7-17) mg/dL Creatinine (0.52-1.04) mg/dL Glucose (74-99) mg/dL POC Glucose (mg/dL) 163 H (75-99) mg/dL Plasma Lactic Acid Jeffry (0.7-2.0) mmol/L Phosphorus (2.5-4.5) mg/dL Total Protein (6.3-8.2) g/dL Albumin (3.5-5.0) g/dL Urine Nitrite Positive H (Negative) Urine Bacteria Many H (None) /hpf Hyaline Casts 55 H (0-2) /lpf Urine Mucus Rare H (None) /hpf Stool Occult Blood Positive H (Negative) Crossmatch 12/11/19 12/11/19 12/11/19 Range/Units 06:07 06:11 06:11 RBC 2.06 L (3.80-5.40) m/uL Hgb 6.8 L* (11.4-16.0) gm/dL Hct 21.1 L (34.0-46.0) % MCV 102.5 H D (80.0-100.0) fL RDW 23.1 H (11.5-15.5) % Plt Count 71 L (150-450) k/uL Macrocytosis Marked A APTT (22.0-30.0) sec Sodium (137-145) mmol/L Potassium (3.5-5.1) mmol/L Carbon Dioxide (22-30) mmol/L BUN 43 H (7-17) mg/dL Creatinine 1.31 H (0.52-1.04) mg/dL Glucose 122 H (74-99) mg/dL POC Glucose (mg/dL) 137 H (75-99) mg/dL Plasma Lactic Acid Jeffry (0.7-2.0) mmol/L Phosphorus (2.5-4.5) mg/dL Total Protein 5.7 L (6.3-8.2) g/dL Albumin 3.3 L (3.5-5.0) g/dL Urine Nitrite (Negative) Urine Bacteria (None) /hpf Hyaline Casts (0-2) /lpf Urine Mucus (None) /hpf Stool Occult Blood (Negative) Crossmatch CT Scan - head: report reviewed Assessment and Plan Plan: Assessment and recommendations: Macrocytic Anemia: - Transfusion hemoglobin 6.8 today. - She is status post capsule endoscopy and EGD/Colonoscopy (last admission 10/2019) - Iron studies again not drawn prior to transfusion therefore likely still inaccurate. - Transfuse hemoglobin less than 7 - Macrocytosis we have added haptoglobin and reticulocyte along with anemia iron panel to labs from yesterday, prior to blood transfusion for accuracy, discussed with lab and confirmed blood work sent on the 12/09 tubes. Thrombocytopenia: - Slowly worsening over the past couple months Recurrent falls: - Safety and plan for Rehab again at D/C per primary team. Hx: DVT: - Was on Warfarin, on hold Hx: Right Breast Cancer: - Non-adherence with follow-ups and arimidex over the years - Diagnosed in 2008, currently still trying to complete full 10 years of arimidex. Plan: 12/11/19 - Repeat Anemia Panel today - Transfuse one unit PRBC Today - Work-up for Macrocytosis All other issues per primary team and other specialties
--- NOTE | 2019-12-11 13:59 | P.GSCN ---
History of Present Illness Consult date: 12/11/19 Reason for Consult: Anemia, heme positive stool History of present illness: The patient was brought to the hospital due to weakness, shortness of breath and falling. She was found to be very anemic. She's had several hospitalizations this year for similar complaints. Prior hospitalization she had an EGD and colonoscopy. She subsequently had a capsule endoscopy which Dr. Baker she reports as normal. She will occasionally have some blood with a bowel movement. Usually wipe type. She'll have some rectal discomfort with a bowel movement were feels like something tears when she has a constipated stool. No loss of appetite, nausea or vomiting. Review of Systems All systems: negative Past Medical History Past Medical History: Atrial Fibrillation, Cancer, Diabetes Mellitus, Hypertension, Sleep Apnea/CPAP/BIPAP, Thyroid Disorder Additional Past Medical History / Comment(s): Heart disease, ocular neuritis Last Myocardial Infarction Date:: 2018 History of Any Multi-Drug Resistant Organisms: None Reported Past Surgical History: Appendectomy, Breast Surgery, Cholecystectomy, Heart Catheterization With Stent Additional Past Surgical History / Comment(s): bilateral masectomy, heart cath follow up in 2000 Past Anesthesia/Blood Transfusion Reactions: No Reported Reaction Additional Past Anesthesia/Blood Transfusion Reaction / Comm: Pt has received blood without reaction. Date of Last Stent Placement:: 1997 Past Psychological History: No Psychological Hx Reported Additional Psychological History / Comment(s): Pt has her silvia and son in law living with her. She ambulates with a rollator. Her silvia is her caregiver. She no longer drives, her silvia takes her to appts. She has a cpap, glucometer. Smoking Status: Former smoker, Never smoker Past Alcohol Use History: None Reported Additional Past Alcohol Use History / Comment(s): Patient was a smoker of 4 packs per day for 20 years and quit approximately 20 years ago. She denies any marijuana, illicit drug use. No alcohol use. She was at home with her daughter. She does have a CPAP and nebulizer. Patient is . Past Drug Use History: None Reported - Past Family History Father Family Medical History: Coronary Artery Disease (CAD), Hypertension, Myocardial Infarction ([place]) Additional Family Medical History / Comment(s): Father at age 72 from c oronary artery disease with history of diabetes Mother Family Medical History: Coronary Artery Disease (CAD) Additional Family Medical History / Comment(s): Mother at age 72 with history of coronary artery disease and diabetes. Sister(s) Additional Family Medical History / Comment(s): Patient has 1 sister with no major medical problems. Patient does not have. His. Patient has 1 daughter with no major medical problems. No history of breast cancer. Medications and Allergies Home Medications Medication Instructions Recorded Confirmed Type Anastrozole [Arimidex] 1 mg PO HS 01/01/14 12/10/19 History Insulin Detemir (Levemir) [Levemir] 40 unit SQ BID 01/01/14 12/10/19 History Spironolactone [Aldactone] 25 mg PO DAILY 01/01/14 12/10/19 History Levothyroxine Sodium [Synthroid] 75 mcg PO DAILY 01/20/19 12/10/19 History Levothyroxine Sodium [Synthroid] 200 mcg PO DAILY 01/20/19 12/10/19 History Melatonin 3 mg PO HS 01/20/19 12/10/19 History Metoprolol Tartrate [Lopressor] 50 mg PO BID 01/20/19 12/10/19 History Venlafaxine HCl [Effexor XR] 75 mg PO HS 01/20/19 12/10/19 History Venlafaxine HCl [Effexor XR] 150 mg PO DAILY 01/20/19 12/10/19 History lisinopriL [Zestril] 5 mg PO DAILY 01/20/19 12/10/19 History Atorvastatin [Lipitor] 80 mg PO HS #30 tab 01/24/19 12/10/19 Rx Amiodarone [Cordarone] 200 mg PO BID 05/03/19 12/10/19 History Cyanocobalamin [Vitamin B-12] 500 mcg PO DAILY 05/03/19 12/10/19 History Aspirin EC [Ecotrin Low Dose] 81 mg PO DAILY 11/07/19 12/10/19 History Docusate [Colace] 100 mg PO DAILY 11/07/19 12/10/19 History Ketoconazole 2% Cream [Nizoral 2%] 1 applic TOPICAL BID PRN 11/07/19 12/10/19 History Magnesium Chloride [Slow-Mag] 64 mg PO DAILY 11/07/19 12/10/19 History Gabapentin 600 mg PO Q6H PRN #12 tab 11/10/19 12/10/19 Rx metFORMIN HCL [Glucophage] 1,000 mg PO BID #60 tab 11/10/19 12/10/19 Rx traMADol HCL 50 mg PO TID PRN #9 tab 11/10/19 12/10/19 Rx Clopidogrel [Plavix] 75 mg PO DAILY 12/10/19 12/10/19 History Ferrous Sulfate [Iron (65 MG 325 mg PO DAILY 12/10/19 12/10/19 History Elemental)] Furosemide [Lasix] 20 mg PO DAILY@1600 12/10/19 12/10/19 History Furosemide [Lasix] 40 mg PO DAILY 12/10/19 12/10/19 History INSULIN LISPRO (HumaLOG) [humaLOG] See Protocol SQ ACHS 12/10/19 12/10/19 History Nitroglycerin Sl Tabs [Nitrostat] 0.4 mg SL Q5M PRN 12/10/19 12/10/19 History Potassium Otc(Unknown Dose) 1 tab PO DAILY 12/10/19 12/10/19 History Allergies Allergy/AdvReac Type Severity Reaction Status Date / Time fluoxetine HCl [From Prozac] Allergy Itching Verified 12/10/19 19:41 gluten Allergy Abdominal Verified 12/10/19 19:41 Pain Sulfa (Sulfonamide Allergy Itching Verified 12/10/19 19:41 Antibiotics) Surgical - Exam Osteopathic Statement: *. No significant issues noted on an osteopathic structural exam other than those noted in the History and Physical/Consult. Vital Signs Temp Pulse Resp BP Pulse Ox 98.6 F 54 L 18 134/54 96 12/10/19 17:15 12/10/19 17:15 12/10/19 17:15 12/10/19 17:15 12/10/19 17:15 - General well developed, well nourished, no distress - Eyes normal ocular movement - Respiratory normal expansion, clear to auscultation - Cardiovascular Rhythm: irregularly irregular - Abdomen Abdomen: soft, non tender, bowel sounds - Rectum Some moderately large external hemorrhoidal skin tags with some mucosal prolapse. No masses on digital rectal exam. There is a small posterior anal fissure. No stool on examining glove. Results - Labs 12/11/19 06:11 12/11/19 06:11 Abnormal Lab Results - Last 24 Hours (Table) 12/10/19 12/10/19 12/10/19 Range/Units 17:59 17:59 17:59 RBC 1.96 L (3.80-5.40) m/uL Hgb 6.7 L* (11.4-16.0) gm/dL Hct 21.1 L (34.0-46.0) % MCV 107.7 H (80.0-100.0) fL RDW 23.0 H (11.5-15.5) % Plt Count 85 L (150-450) k/uL Macrocytosis Marked A APTT 20.7 L (22.0-30.0) sec Sodium 128 L (137-145) mmol/L Potassium 6.6 H* (3.5-5.1) mmol/L Carbon Dioxide 19 L (22-30) mmol/L BUN 54 H (7-17) mg/dL Creatinine 1.68 H (0.52-1.04) mg/dL Glucose 139 H (74-99) mg/dL POC Glucose (mg/dL) (75-99) mg/dL Plasma Lactic Acid Jeffry (0.7-2.0) mmol/L Phosphorus 4.7 H (2.5-4.5) mg/dL Total Protein (6.3-8.2) g/dL Albumin (3.5-5.0) g/dL Urine Nitrite (Negative) Urine Bacteria (None) /hpf Hyaline Casts (0-2) /lpf Urine Mucus (None) /hpf Stool Occult Blood (Negative) Crossmatch 12/10/19 12/10/19 12/10/19 Range/Units 17:59 17:59 19:24 RBC (3.80-5.40) m/uL Hgb (11.4-16.0) gm/dL Hct (34.0-46.0) % MCV (80.0-100.0) fL RDW (11.5-15.5) % Plt Count (150-450) k/uL Macrocytosis APTT (22.0-30.0) sec Sodium (137-145) mmol/L Potassium 6.6 H* (3.5-5.1) mmol/L Carbon Dioxide (22-30) mmol/L BUN (7-17) mg/dL Creatinine (0.52-1.04) mg/dL Glucose (74-99) mg/dL POC Glucose (mg/dL) (75-99) mg/dL Plasma Lactic Acid Jeffry 2.8 H* (0.7-2.0) mmol/L Phosphorus (2.5-4.5) mg/dL Total Protein (6.3-8.2) g/dL Albumin (3.5-5.0) g/dL Urine Nitrite (Negative) Urine Bacteria (None) /hpf Hyaline Casts (0-2) /lpf Urine Mucus (None) /hpf Stool Occult Blood (Negative) Crossmatch See Detail 12/10/19 12/10/19 12/10/19 Range/Units 20:28 21:51 23:16 RBC (3.80-5.40) m/uL Hgb (11.4-16.0) gm/dL Hct (34.0-46.0) % MCV (80.0-100.0) fL RDW (11.5-15.5) % Plt Count (150-450) k/uL Macrocytosis APTT (22.0-30.0) sec Sodium (137-145) mmol/L Potassium (3.5-5.1) mmol/L Carbon Dioxide (22-30) mmol/L BUN (7-17) mg/dL Creatinine (0.52-1.04) mg/dL Glucose (74-99) mg/dL POC Glucose (mg/dL) 163 H (75-99) mg/dL Plasma Lactic Acid Jeffry (0.7-2.0) mmol/L Phosphorus (2.5-4.5) mg/dL Total Protein (6.3-8.2) g/dL Albumin (3.5-5.0) g/dL Urine Nitrite Positive H (Negative) Urine Bacteria Many H (None) /hpf Hyaline Casts 55 H (0-2) /lpf Urine Mucus Rare H (None) /hpf Stool Occult Blood Positive H (Negative) Crossmatch 12/11/19 12/11/19 12/11/19 Range/Units 06:07 06:11 06:11 RBC 2.06 L (3.80-5.40) m/uL Hgb 6.8 L* (11.4-16.0) gm/dL Hct 21.1 L (34.0-46.0) % MCV 102.5 H D (80.0-100.0) fL RDW 23.1 H (11.5-15.5) % Plt Count 71 L (150-450) k/uL Macrocytosis Marked A APTT (22.0-30.0) sec Sodium (137-145) mmol/L Potassium (3.5-5.1) mmol/L Carbon Dioxide (22-30) mmol/L BUN 43 H (7-17) mg/dL Creatinine 1.31 H (0.52-1.04) mg/dL Glucose 122 H (74-99) mg/dL POC Glucose (mg/dL) 137 H (75-99) mg/dL Plasma Lactic Acid Jeffry (0.7-2.0) mmol/L Phosphorus (2.5-4.5) mg/dL Total Protein 5.7 L (6.3-8.2) g/dL Albumin 3.3 L (3.5-5.0) g/dL Urine Nitrite (Negative) Urine Bacteria (None) /hpf Hyaline Casts (0-2) /lpf Urine Mucus (None) /hpf Stool Occult Blood (Negative) Crossmatch 12/11/19 Range/Units 11:50 RBC (3.80-5.40) m/uL Hgb (11.4-16.0) gm/dL Hct (34.0-46.0) % MCV (80.0-100.0) fL RDW (11.5-15.5) % Plt Count (150-450) k/uL Macrocytosis APTT (22.0-30.0) sec Sodium (137-145) mmol/L Potassium (3.5-5.1) mmol/L Carbon Dioxide (22-30) mmol/L BUN (7-17) mg/dL Creatinine (0.52-1.04) mg/dL Glucose (74-99) mg/dL POC Glucose (mg/dL) 109 H (75-99) mg/dL Plasma Lactic Acid Jeffry (0.7-2.0) mmol/L Phosphorus (2.5-4.5) mg/dL Total Protein (6.3-8.2) g/dL Albumin (3.5-5.0) g/dL Urine Nitrite (Negative) Urine Bacteria (None) /hpf Hyaline Casts (0-2) /lpf Urine Mucus (None) /hpf Stool Occult Blood (Negative) Crossmatch Diabetes panel 12/10/19 12/10/19 12/11/19 Range/Units 17:59 19:24 06:11 Sodium 128 L 138 (137-145) mmol/L Potassium 6.6 H* 6.6 H* 5.1 (3.5-5.1) mmol/L Chloride 99 107 (98-107) mmol/L Carbon Dioxide 19 L 24 (22-30) mmol/L BUN 54 H 43 H (7-17) mg/dL Creatinine 1.68 H 1.31 H (0.52-1.04) mg/dL Glucose 139 H 122 H (74-99) mg/dL Calcium 8.7 8.8 (8.4-10.2) mg/dL AST 28 23 (14-36) U/L ALT 31 28 (4-34) U/L Alkaline Phosphatase 80 75 (38-126) U/L Total Protein 6.4 5.7 L (6.3-8.2) g/dL Albumin 3.8 3.3 L (3.5-5.0) g/dL Calcium panel 12/10/19 12/11/19 Range/Units 17:59 06:11 Calcium 8.7 8.8 (8.4-10.2) mg/dL Phosphorus 4.7 H (2.5-4.5) mg/dL Albumin 3.8 3.3 L (3.5-5.0) g/dL Pituitary panel 12/10/19 12/10/19 12/11/19 Range/Units 17:59 19:24 06:11 Sodium 128 L 138 (137-145) mmol/L Potassium 6.6 H* 6.6 H* 5.1 (3.5-5.1) mmol/L Chloride 99 107 (98-107) mmol/L Carbon Dioxide 19 L 24 (22-30) mmol/L BUN 54 H 43 H (7-17) mg/dL Creatinine 1.68 H 1.31 H (0.52-1.04) mg/dL Glucose 139 H 122 H (74-99) mg/dL Calcium 8.7 8.8 (8.4-10.2) mg/dL Adrenal panel 12/10/19 12/10/19 12/11/19 Range/Units 17:59 19:24 06:11 Sodium 128 L 138 (137-145) mmol/L Potassium 6.6 H* 6.6 H* 5.1 (3.5-5.1) mmol/L Chloride 99 107 (98-107) mmol/L Carbon Dioxide 19 L 24 (22-30) mmol/L BUN 54 H 43 H (7-17) mg/dL Creatinine 1.68 H 1.31 H (0.52-1.04) mg/dL Glucose 139 H 122 H (74-99) mg/dL Calcium 8.7 8.8 (8.4-10.2) mg/dL Total Bilirubin 0.4 0.5 (0.2-1.3) mg/dL AST 28 23 (14-36) U/L ALT 31 28 (4-34) U/L Alkaline Phosphatase 80 75 (38-126) U/L Total Protein 6.4 5.7 L (6.3-8.2) g/dL Albumin 3.8 3.3 L (3.5-5.0) g/dL Assessment and Plan (1) Anal fissure Current Visit: Yes Status: Acute Code(s): K60.2 - ANAL FISSURE, UNSPECIFIED SNOMED Code(s): 03088732 (2) Anemia Current Visit: Yes Status: Acute Code(s): D64.9 - ANEMIA, UNSPECIFIED SNOMED Code(s): 166356833 (3) Hyperkalemia Current Visit: Yes Status: Acute Code(s): E87.5 - HYPERKALEMIA SNOMED Code(s): 34882049 (4) Atrial fibrillation with rapid ventricular response Current Visit: No Status: Acute Code(s): I48.91 - UNSPECIFIED ATRIAL FIBRILLATION SNOMED Code(s): 044070603869106 (5) Symptomatic anemia Current Visit: No Status: Acute Code(s): D64.9 - ANEMIA, UNSPECIFIED SNOMED Code(s): 408065424 Plan: There is a small, chronic posterior anal fissure. This is unlikely to cause her anemia. I'll order a steroid cream to help heal this. Recommend medical workup of the anemia since she's had an extensive GI workup which is been normal today.
[2019-12-11 14:02] LABS: Reticulocyte % 5.1 % (0.5-2.0)
[2019-12-11] MEDS: metFORMIN 500 MG TAB PO SCH ×2 (14:22→20:28)
[2019-12-11] MEDS: AMIODARONE 200 MG TAB PO SCH ×2 (14:22→20:28)
[2019-12-11] MEDS: DOCUSATE 100 MG CAP PO SCH (14:23)
[2019-12-11] MEDS: CYANOCOBALAMIN 500 MCG TAB PO SCH (14:23)
[2019-12-11] MEDS: FUROSEMIDE 20 MG TAB PO SCH ×2 (14:23→16:00)
[2019-12-11] MEDS: METOPROLOL TARTRATE 50 MG TAB PO SCH ×2 (14:23→20:28)
[2019-12-11] MEDS: FERROUS SULFATE 325 MG TAB PO SCH (14:24)
[2019-12-11] MEDS: lisinopriL 5 MG TAB PO SCH (14:24)
[2019-12-11] MEDS: SPIRONOLACTONE 25 MG TAB PO SCH (14:24)
[2019-12-11] MEDS: GABAPENTIN 300 MG CAP PO PRN ×2 (14:30→22:30)
[2019-12-11 14:51] LABS: LDH 655 U/L (313-618)
[2019-12-11] MEDS: VENLAFAXINE HCL ER 150 MG CAP PO SCH (16:00)
[2019-12-11 16:45] LABS: Glucose,Whole Blood 201 mg/dL (75-99)
[2019-12-11 20:18] LABS: Glucose,Whole Blood 182 mg/dL (75-99)
[2019-12-11] MEDS: MELATONIN 3 MG TABLET PO SCH (20:28)
[2019-12-11] MEDS: ATORVASTATIN 80 MG TAB PO SCH (20:28)
[2019-12-11] MEDS: ANASTROZOLE 1 MG TAB PO SCH (20:29)
[2019-12-11 20:39] LABS: Ferritin 242.8 ng/mL (10.0-291.0); Folate, Serum 9.7 ng/mL
[2019-12-11] MEDS: VENLAFAXINE HCL ER 75 MG CAP PO SCH (21:00)
[2019-12-11 21:04] LABS: % Iron Saturation 38.04 (12.00-45.00); Iron 124 ug/dL (50-170); Rheumatoid Factor, Qnt <4 IU/mL (0-15); Total Iron Binding Capacity 326 ug/dL (228-460)
[2019-12-11] MEDS: HYDROCORTISONE SUPPOSITORY 25 MG SUPP RECTAL SCH (23:42)
[2019-12-12] MEDS: SODIUM CHLORIDE 0.9% 1,000 ML IV SCH (06:41)
[2019-12-12 06:51] LABS: Glucose,Whole Blood 92 mg/dL (75-99)
[2019-12-12] MEDS: LEVOTHYROXINE 100 MCG TAB PO SCH (06:55)
[2019-12-12] MEDS: LEVOTHYROXINE 75 MCG TAB PO SCH (06:55)
[2019-12-12] MEDS: INSULIN DETEMIR (LEVEMIR) 100 UNIT/ML SYR SQ SCH ×3 (06:56→20:25)
--- NOTE | 2019-12-12 07:24 | P.CONS ---
History of Present Illness - Reason for Consult Consult date: 12/11/19 Anemia Requesting physician: Bereket Holliday - Chief Complaint Weakness - History of Present Illness 74-year-old female with a medical history significant for DVT, breast cancer, coronary artery disease status post stent placement, atrial fibrillation, diabetes mellitus, hypertension, fiber myalgia, hyperlipidemia, CHRISTIE, hypothyroidism, anxiety and depression and a known history of anemia who presented to the hospital for shortness of breath and weakness. The patient previously has undergone endoscopic evaluation with EGD and colonoscopy in 06/11/2019 with EGD within normal limits and colonoscopy significant for polypectomy of cecal and ascending colon polyps and diverticulosis. She then underwent a small bowel capsule endoscopy in 11/08/2019 which was negative for any evidence of bleeding when hospitalized for anemia. Currently she is denying any signs or symptoms of GI bleeding. No change in bowel habits reported. Previously she has been on Plavix and aspirin therapy which have been discontinued. Currently she is being seen by hematology service as well as the surgical service who has been consulted to see the patient in regards to hemorrhoids. Laboratory evaluation on presentation significant for hemoglobin 6.8, platelet count 71,000, total bilirubin 0.5, alkaline phosphatase 75, AST 23 and ALT 28. Stool testing for occult blood was positive. Review of Systems REVIEW OF SYSTEMS: CONSTITUTIONAL: Denies any fevers, chills, weight change but she has had fatigue and weight. CARDIOVASCULAR: Denies any chest pain, palpitations high or low blood pressures, she does have known history of fibrillation. RESPIRATORY: Denies any shortness of breath, hemoptysis or cough. GENITOURINARY: No dysuria or hematuria. MUSCULOSKELETAL: No weakness reported. SKIN: Denies any new rashes or lesions, jaundice or pallor. PSYCHIATRIC: Denies any depression or anxiety, but does have a history of anxiety and depression. NEUROLOGY: Denies headache, denies any new focal deficits. EARS/NOSE/THROAT: No recent hearing change, congestion, nasal discharge or sore throat. EYES: No pain in eyes, discharge or change in vision. GASTROINTESTINAL: As per HPI. Past Medical History Past Medical History: Atrial Fibrillation, Cancer, Diabetes Mellitus, Hypertensi on, Sleep Apnea/CPAP/BIPAP, Thyroid Disorder Additional Past Medical History / Comment(s): Heart disease, ocular neuritis Last Myocardial Infarction Date:: 2018 History of Any Multi-Drug Resistant Organisms: None Reported Past Surgical History: Appendectomy, Breast Surgery, Cholecystectomy, Heart Ca theterization With Stent Additional Past Surgical History / Comment(s): bilateral masectomy, heart cath follow up in 2000 Past Anesthesia/Blood Transfusion Reactions: No Reported Reaction Additional Past Anesthesia/Blood Transfusion Reaction / Comm: Pt has received blood without reaction. Date of Last Stent Placement:: 1997 Past Psychological History: No Psychological Hx Reported Additional Psychological History / Comment(s): Pt has her silvia and son in law living with her. She ambulates with a rollator. Her silvia is her caregiver. She no longer drives, her silvia takes her to [id number]. She has a cpap, glucometer. Smoking Status: Former smoker, Never smoker Past Alcohol Use History: None Reported Additional Past Alcohol Use History / Comment(s): Patient was a smoker of 4 packs per day for 20 years and quit approximately 20 years ago. She denies any marijuana, illicit drug use. No alcohol use. She was at home with her daughter. She does have a CPAP and nebulizer. Patient is . Past Drug Use History: None Reported - Past Family History Father Family Medical History: Coronary Artery Disease (CAD), Hypertension, Myocardial Infarction (SC) Additional Family Medical History / Comment(s): Father at age 72 from coronary artery disease with history of diabetes Mother Family Medical History: Coronary Artery Disease (CAD) Additional Family Medical History / Comment(s): Mother at age 72 with history of coronary artery disease and diabetes. Sister(s) Additional Family Medical History / Comment(s): Patient has 1 sister with no major medical problems. Patient does not have. His. Patient has 1 daughter with no major medical problems. No history of breast cancer. Medications and Allergies Home Medications Medication Instructions Recorded Confirmed Type Anastrozole [Arimidex] 1 mg PO HS 01/01/14 12/10/19 History Insulin Detemir (Levemir) [Levemir] 40 unit SQ BID 01/01/14 12/10/19 History Spironolactone [Aldactone] 25 mg PO DAILY 01/01/14 12/10/19 History Levothyroxine Sodium [Synthroid] 75 mcg PO DAILY 01/20/19 12/10/19 History Levothyroxine Sodium [Synthroid] 200 mcg PO DAILY 01/20/19 12/10/19 History Melatonin 3 mg PO HS 01/20/19 12/10/19 History Metoprolol Tartrate [Lopressor] 50 mg PO BID 01/20/19 12/10/19 History Venlafaxine HCl [Effexor XR] 75 mg PO HS 01/20/19 12/10/19 History Venlafaxine HCl [Effexor XR] 150 mg PO DAILY 01/20/19 12/10/19 History lisinopriL [Zestril] 5 mg PO DAILY 01/20/19 12/10/19 History Atorvastatin [Lipitor] 80 mg PO HS #30 tab 01/24/19 12/10/19 Rx Amiodarone [Cordarone] 200 mg PO BID 05/03/19 12/10/19 History Cyanocobalamin [Vitamin B-12] 500 mcg PO DAILY 05/03/19 12/10/19 History Aspirin EC [Ecotrin Low Dose] 81 mg PO DAILY 11/07/19 12/10/19 History Docusate [Colace] 100 mg PO DAILY 11/07/19 12/10/19 History Ketoconazole 2% Cream [Nizoral 2%] 1 applic TOPICAL BID PRN 11/07/19 12/10/19 History Magnesium Chloride [Slow-Mag] 64 mg PO DAILY 11/07/19 12/10/19 History Gabapentin 600 mg PO Q6H PRN #12 tab 11/10/19 12/10/19 Rx metFORMIN HCL [Glucophage] 1,000 mg PO BID #60 tab 11/10/19 12/10/19 Rx traMADol HCL 50 mg PO TID PRN #9 tab 11/10/19 12/10/19 Rx Clopidogrel [Plavix] 75 mg PO DAILY 12/10/19 12/10/19 History Ferrous Sulfate [Iron (65 MG 325 mg PO DAILY 12/10/19 12/10/19 History Elemental)] Furosemide [Lasix] 20 mg PO DAILY@1600 12/10/19 12/10/19 History Furosemide [Lasix] 40 mg PO DAILY 12/10/19 12/10/19 History INSULIN LISPRO (HumaLOG) [humaLOG] See Protocol SQ ACHS 12/10/19 12/10/19 History Nitroglycerin Sl Tabs [Nitrostat] 0.4 mg SL Q5M PRN 12/10/19 12/10/19 History Potassium Otc(Unknown Dose) 1 tab PO DAILY 12/10/19 12/10/19 History Allergies Allergy/AdvReac Type Severity Reaction Status Date / Time fluoxetine HCl [From Prozac] Allergy Itching Verified 12/10/19 19:41 gluten Allergy Abdominal Verified 12/10/19 19:41 Pain Sulfa (Sulfonamide Allergy Itching Verified 12/10/19 19:41 Antibiotics) Physical Exam Vitals: Vital Signs Temp Pulse Pulse Resp BP BP Pulse Ox 12/11/19 11:29 97.1 F L 84 18 161/71 12/11/19 10:59 18 12/11/19 10:58 97.9 F 88 18 152/67 12/11/19 10:49 98.4 F 84 18 133/60 12/11/19 08:00 97.1 F L 84 18 139/64 96 12/11/19 04:00 98.3 F 81 20 146/63 97 12/11/19 00:00 97.8 F 78 18 143/65 94 L 12/10/19 23:55 97.8 F 56 L 18 134/78 12/10/19 22:03 97.8 F 63 20 121/58 98 12/10/19 21:58 97.8 F 78 18 143/65 94 L 12/10/19 21:13 97.4 F L 52 L 20 125/78 12/10/19 20:52 97.4 F L 56 L 20 120/44 12/10/19 20:43 97.8 F 59 L 20 127/52 12/10/19 20:33 97.7 F 56 L 18 135/86 12/10/19 19:47 54 L 12/10/19 19:35 56 L 12/10/19 17:15 98.6 F 54 L 18 134/54 96 Intake and Output 12/10/19 12/11/19 12/11/19 22:59 06:59 14:59 Intake Total 0 310 0 Balance 0 310 0 Intake: Blood Product 0 310 0 Rc As-1 Unit 0 310 [id number] Rc Irr As1 Unit 0 [id number] Other: # Bowel Movements 4 Weight 117.934 kg 123.9 kg On physical examination, patient appears comfortable in no apparent distress. HEAD: Normocephalic, atraumatic. EYES: No scleral icterus. No conjunctival injection. MOUTH: No lesions, tongue midline. NECK: Trachea midline, no gross abnormalities. CHEST: Decreased air entry in all lung hickey. HEART: S1-S2 appreciated. ABDOMEN: Soft, obese. Bowel sounds are positive. No organomegaly. No guarding or rigidity. EXTREMITIES: No pedal edema. SKIN: No rashes, no jaundice. NEUROLOGIC: Alert and oriented x3. No focal deficits. Results CBC & Chem 7: 12/11/19 06:11 12/11/19 06:11 Labs: Abnormal Lab Results - Last 24 Hours (Table) 12/10/19 12/10/19 12/10/19 Range/Units 17:59 17:59 17:59 RBC 1.96 L (3.80-5.40) m/uL Hgb 6.7 L* (11.4-16.0) gm/dL Hct 21.1 L (34.0-46.0) % MCV 107.7 H (80.0-100.0) fL RDW 23.0 H (11.5-15.5) % Plt Count 85 L (150-450) k/uL Macrocytosis Marked A APTT 20.7 L (22.0-30.0) sec Sodium 128 L (137-145) mmol/L Potassium 6.6 H* (3.5-5.1) mmol/L Carbon Dioxide 19 L (22-30) mmol/L BUN 54 H (7-17) mg/dL Creatinine 1.68 H (0.52-1.04) mg/dL Glucose 139 H (74-99) mg/dL POC Glucose (mg/dL) (75-99) mg/dL Plasma Lactic Acid Jeffry (0.7-2.0) mmol/L Phosphorus 4.7 H (2.5-4.5) mg/dL Total Protein (6.3-8.2) g/dL Albumin (3.5-5.0) g/dL Urine Nitrite (Negative) Urine Bacteria (None) /hpf Hyaline Casts (0-2) /lpf Urine Mucus (None) /hpf Stool Occult Blood (Negative) Crossmatch 12/10/19 12/10/19 12/10/19 Range/Units 17:59 17:59 19:24 RBC (3.80-5.40) m/uL Hgb (11.4-16.0) gm/dL Hct (34.0-46.0) % MCV (80.0-100.0) fL RDW (11.5-15.5) % Plt Count (150-450) k/uL Macrocytosis APTT (22.0-30.0) sec Sodium (137-145) mmol/L Potassium 6.6 H* (3.5-5.1) mmol/L Carbon Dioxide (22-30) mmol/L BUN (7-17) mg/dL Creatinine (0.52-1.04) mg/dL Glucose (74-99) mg/dL POC Glucose (mg/dL) (75-99) mg/dL Plasma Lactic Acid Jeffry 2.8 H* (0.7-2.0) mmol/L Phosphorus (2.5-4.5) mg/dL Total Protein (6.3-8.2) g/dL Albumin (3.5-5.0) g/dL Urine Nitrite (Negative) Urine Bacteria (None) /hpf Hyaline Casts (0-2) /lpf Urine Mucus (None) /hpf Stool Occult Blood (Negative) Crossmatch See Detail 12/10/19 12/10/19 12/10/19 Range/Units 20:28 21:51 23:16 RBC (3.80-5.40) m/uL Hgb (11.4-16.0) gm/dL Hct (34.0-46.0) % MCV (80.0-100.0) fL RDW (11.5-15.5) % Plt Count (150-450) k/uL Macrocytosis APTT (22.0-30.0) sec Sodium (137-145) mmol/L Potassium (3.5-5.1) mmol/L Carbon Dioxide (22-30) mmol/L BUN (7-17) mg/dL Creatinine (0.52-1.04) mg/dL Glucose (74-99) mg/dL POC Glucose (mg/dL) 163 H (75-99) mg/dL Plasma Lactic Acid Jeffry (0.7-2.0) mmol/L Phosphorus (2.5-4.5) mg/dL Total Protein (6.3-8.2) g/dL Albumin (3.5-5.0) g/dL Urine Nitrite Positive H (Negative) Urine Bacteria Many H (None) /hpf Hyaline Casts 55 H (0-2) /lpf Urine Mucus Rare H (None) /hpf Stool Occult Blood Positive H (Negative) Crossmatch 12/11/19 12/11/19 12/11/19 Range/Units 06:07 06:11 06:11 RBC 2.06 L (3.80-5.40) m/uL Hgb 6.8 L* (11.4-16.0) gm/dL Hct 21.1 L (34.0-46.0) % MCV 102.5 H D (80.0-100.0) fL RDW 23.1 H (11.5-15.5) % Plt Count 71 L (150-450) k/uL Macrocytosis Marked A APTT (22.0-30.0) sec Sodium (137-145) mmol/L Potassium (3.5-5.1) mmol/L Carbon Dioxide (22-30) mmol/L BUN 43 H (7-17) mg/dL Creatinine 1.31 H (0.52-1.04) mg/dL Glucose 122 H (74-99) mg/dL POC Glucose (mg/dL) 137 H (75-99) mg/dL Plasma Lactic Acid Jeffry (0.7-2.0) mmol/L Phosphorus (2.5-4.5) mg/dL Total Protein 5.7 L (6.3-8.2) g/dL Albumin 3.3 L (3.5-5.0) g/dL Urine Nitrite (Negative) Urine Bacteria (None) /hpf Hyaline Casts (0-2) /lpf Urine Mucus (None) /hpf Stool Occult Blood (Negative) Crossmatch 12/11/19 Range/Units 11:50 RBC (3.80-5.40) m/uL Hgb (11.4-16.0) gm/dL Hct (34.0-46.0) % MCV (80.0-100.0) fL RDW (11.5-15.5) % Plt Count (150-450) k/uL Macrocytosis APTT (22.0-30.0) sec Sodium (137-145) mmol/L Potassium (3.5-5.1) mmol/L Carbon Dioxide (22-30) mmol/L BUN (7-17) mg/dL Creatinine (0.52-1.04) mg/dL Glucose (74-99) mg/dL POC Glucose (mg/dL) 109 H (75-99) mg/dL Plasma Lactic Acid Jeffry (0.7-2.0) mmol/L Phosphorus (2.5-4.5) mg/dL Total Protein (6.3-8.2) g/dL Albumin (3.5-5.0) g/dL Urine Nitrite (Negative) Urine Bacteria (None) /hpf Hyaline Casts (0-2) /lpf Urine Mucus (None) /hpf Stool Occult Blood (Negative) Crossmatch Chest x-ray: report reviewed (Mild fibrotic changes and cardiomegaly on chest x- ray) Assessment and Plan (1) Anemia Narrative/Plan: 74-year-old female with multiple medical comorbidities who presented to the hospital due to weakness and fatigue. Patient has a known history of anemia recently hospitalized in October. She underwent extensive evaluation with EGD and colonoscopy in 05/2019 with a normal EGD had findings of diverticulosis and polypectomy on colonoscopy. Video capsule endoscopy performed in October during hospitalization negative for any acute GI bleeding. Patient has a macrocytic anemia likely multifactorial given history of breast cancer and prior chemotherapeutics, anemia of chronic disease with no evidence of iron deficiency on laboratory investigation in October or evidence of GI bleeding on endoscopic evaluation. Current Visit: Yes Status: Acute Code(s): D64.9 - ANEMIA, UNSPECIFIED SNOMED Code(s): 657960634 (2) History of colon polyps Current Visit: Yes Status: Acute Code(s): Z86.010 - PERSONAL HISTORY OF COLONIC POLYPS SNOMED Code(s): 124760928 (3) Diverticulosis Current Visit: No Status: Acute Code(s): K57.90 - DVRTCLOS OF INTEST, PART UNSP, W/O PERF OR ABSCESS W/O BLEED SNOMED Code(s): 198718415 Plan: Supportive care Okay for diet as tolerated and Continue medical management Continue to monitor CBC, BMP, LFTs No plans for endoscopic evaluation at this time, previous evaluation as dictated above including EGD, colonoscopy and video capsule endoscopy Hematology service following the patient Thank you for allowing us to participate in the care of the patient we will continue to follow
[2019-12-12 07:53] LABS: Albumin 3.5 g/dL (3.5-5.0); Calcium 8.6 mg/dL (8.4-10.2); Potassium 4.8 mmol/L (3.5-5.1); Total Bilirubin 0.6 mg/dL (0.2-1.3)
[2019-12-12 08:08] LABS: Anisocytosis Moderate; Basophils % (A) 0 %; Eosinophils # (A) 0.1 k/uL (0-0.7); Eosinophils % (A) 2 %; HCT 23.7 % (34.0-46.0); HGB 7.4 gm/dL (11.4-16.0); Hypochromasia Slight; Lymphocytes # (A) 1.2 k/uL (1.0-4.8); Lymphocytes % (A) 19 %; MCH 32.1 pg (25.0-35.0); MCHC 31.3 g/dL (31.0-37.0); MCV 102.5 fL (80.0-100.0); Macrocytosis Marked; Mean Platelet Volume 9.3; Monocytes # (A) 0.6 k/uL (0-1.0); Monocytes % (A) 10 %; Neutrophils % (A) 64 %; Poikilocytosis Moderate; RBC 2.32 m/uL (3.80-5.40); WBC 6.2 k/uL (3.8-10.6)
[2019-12-12 08:22] LABS: Platelet Count 69 k/uL (150-450)
[2019-12-12] MEDS: FUROSEMIDE 20 MG TAB PO SCH ×2 (09:01→14:36)
[2019-12-12] MEDS: SPIRONOLACTONE 25 MG TAB PO SCH (09:01)
[2019-12-12] MEDS: DOCUSATE 100 MG CAP PO SCH (09:01)
[2019-12-12] MEDS: CYANOCOBALAMIN 500 MCG TAB PO SCH (09:01)
[2019-12-12] MEDS: lisinopriL 5 MG TAB PO SCH (09:01)
[2019-12-12] MEDS: AMIODARONE 200 MG TAB PO SCH ×2 (09:01→22:33)
[2019-12-12] MEDS: FERROUS SULFATE 325 MG TAB PO SCH (09:02)
[2019-12-12] MEDS: METOPROLOL TARTRATE 50 MG TAB PO SCH ×2 (09:02→20:46)
[2019-12-12] MEDS: metFORMIN 500 MG TAB PO SCH ×2 (09:02→20:46)
[2019-12-12] MEDS: HYDROCORTISONE SUPPOSITORY 25 MG SUPP RECTAL SCH ×2 (09:02→20:47)
[2019-12-12] MEDS: VENLAFAXINE HCL ER 150 MG CAP PO SCH (09:03)
[2019-12-12 09:13] LABS: Polychromasia Present
[2019-12-12 10:08] LABS: Erythrocyte Sedimentation Rate 101 mm/hr (0-20)
--- NOTE | 2019-12-12 11:35 | P.PN ---
Subjective Progress Note Date: 12/12/19 Principal diagnosis: Falls/Anemia Discussed with Dr. Siddiqui who did see and examine patient today. She will need bone marrow biopsy for further evaluation. Objective - Vital Signs Vital signs: Vital Signs Temp 98.1 F 12/12/19 04:40 Pulse 67 12/12/19 04:40 Resp 18 12/12/19 04:40 BP 144/67 12/12/19 04:40 Pulse Ox 98 12/12/19 04:40 Intake & Output 12/11/19 12/12/19 12/12/19 18:59 06:59 18:59 Intake Total 550 240 Output Total 0 Balance 550 0 240 Weight 124 kg Intake: Oral 240 240 Blood Product 310 Rc Irr As1 Unit 310 [id number] Output: Urine 0 Other: # Voids 3 0 - Exam - Constitutional General appearance: cooperative, morbidly obese, no acute distress - EENT Eyes: EOMI, dentition normal ENT: hard of hearing, NA/AT, normal oropharynx - Neck Neck: normal ROM - Respiratory Respiratory: bilateral: diminished (bases, mild increased effort) - Cardiovascular Rhythm: irregularly irregular leg Peripheral Edema: bilateral: Trace - Gastrointestinal General gastrointestinal: normal bowel sounds, soft, tenderness - Integumentary Integumentary: pale - Neurologic non-focal - Musculoskeletal Musculoskeletal: generalized weakness - Psychiatric POor historian, fatigued Psychiatric: A&O x's 3 - Labs CBC & Chem 7: 12/12/19 06:54 12/12/19 06:54 Labs: Abnormal Lab Results - Last 24 Hours (Table) 12/10/19 12/10/19 12/10/19 Range/Units 17:59 19:24 19:24 RBC (3.80-5.40) m/uL Hgb (11.4-16.0) gm/dL Hct (34.0-46.0) % MCV (80.0-100.0) fL RDW (11.5-15.5) % Plt Count (150-450) k/uL Macrocytosis ESR (0-20) mm/hr Retic Count 5.1 H (0.5-2.0) % BUN (7-17) mg/dL Creatinine (0.52-1.04) mg/dL POC Glucose (mg/dL) (75-99) mg/dL Lactate Dehydrogenase 655 H (313-618) U/L Total Protein (6.3-8.2) g/dL Crossmatch See Detail 12/11/19 12/11/19 12/11/19 Range/Units 11:50 16:43 20:17 RBC (3.80-5.40) m/uL Hgb (11.4-16.0) gm/dL Hct (34.0-46.0) % MCV (80.0-100.0) fL RDW (11.5-15.5) % Plt Count (150-450) k/uL Macrocytosis ESR (0-20) mm/hr Retic Count (0.5-2.0) % BUN (7-17) mg/dL Creatinine (0.52-1.04) mg/dL POC Glucose (mg/dL) 109 H 201 H 182 H (75-99) mg/dL Lactate Dehydrogenase (313-618) U/L Total Protein (6.3-8.2) g/dL Crossmatch 12/12/19 12/12/19 Range/Units 06:54 06:54 RBC 2.32 L (3.80-5.40) m/uL Hgb 7.4 L (11.4-16.0) gm/dL Hct 23.7 L (34.0-46.0) % MCV 102.5 H (80.0-100.0) fL RDW 23.0 H (11.5-15.5) % Plt Count 69 L (150-450) k/uL Macrocytosis Marked A ESR 101 H (0-20) mm/hr Retic Count (0.5-2.0) % BUN 34 H (7-17) mg/dL Creatinine 1.36 H (0.52-1.04) mg/dL POC Glucose (mg/dL) (75-99) mg/dL Lactate Dehydrogenase (313-618) U/L Total Protein 6.0 L (6.3-8.2) g/dL Crossmatch Assessment and Plan Plan: Assessment and recommendations: Macrocytic Anemia: - Transfusion hemoglobin 6.8 today. - She is status post capsule endoscopy and EGD/Colonoscopy (last admission 10/2019) - Iron studies again not drawn prior to transfusion therefore likely still inaccurate. - Transfuse hemoglobin less than 7 - Macrocytosis we have added haptoglobin and reticulocyte along with anemia iron panel to labs from yesterday, prior to blood transfusion for accuracy, discussed with lab and confirmed blood work sent on the 12/09 tubes. No evidence of Iron deficiency noted - B12 deficiency evidenced with increased MMA - Supps initiated per primary team. Thrombocytopenia: - Slowly worsening over the past couple months Recurrent falls: - Safety and plan for Rehab again at D/C per primary team. Hx: DVT: - Was on Warfarin, on hold Hx: Right Breast Cancer: - Non-adherence with follow-ups and arimidex over the years - Diagnosed in 2008, currently still trying to complete full 10 years of arimidex. Plan: 12/11/19 - Reviewed repeat anemia panel, B12 initiated by primary team, agree - Transfuse hemoglobin less than 7 - ESR and Retic increased, await Haptoglobin. Will svchedule BMB hopefully cristina mckenzie Physician attest: I have completed the full history and physical and agree with above dictation, dictated as a scribe
[2019-12-12 11:57] LABS: Glucose,Whole Blood 100 mg/dL (75-99)
--- NOTE | 2019-12-12 11:59 | P.PN ---
Subjective Progress Note Date: 12/12/19 This is a 74-year-old female patient of Dr. Palacios and Dr. Pena she has a past medical history of coronary artery disease status post stent placement, proximal atrial fibrillation, diabetes type 2, fibromyalgia, hypertension, hyperlipidemia, hypothyroidism, obstructive sleep apnea on CPAP, history of right sided breast cancer status post bilateral mastectomy, generalized anxiety, recurrent depression, anemia. She was recently hospitalized the beginning of October for symptomatic anemia and in May before that. She underwent an EGD with biopsy and colonoscopy with snare polypectomy. The upper endoscopy was essentially normal, colonoscopy revealed cecal polyps and ascending colon polyp. Patient was sent to [facility] after her hospital stay and received 1 unit of packed red blood cells before she was discharged home. Patient came into the emergency department for worsening shortness of breath and generalized weakness with frequent falls. Patient reports she lost her balance at home and fell backwards and hit her head. CT of the brain was negative, hemoglobin was 6.7 she was given 1 unit of packed red blood cells. Creatinine was 1.6, BUN 54, potassium was 6.6. Patient was given hyperkalemia protocol with calcium gluconate and albuterol, insulin and dextrose and Kayexalate. She had a positive fecal occult. This morning potassium is down to 5.1, hemoglobin 6.8, creatinine 1.3 BUN 43. Patient complains of a large bleeding hemorrhoid, surgery was consulted, as well as GI and hematology. 12/11: Patient has been seen by multiple consultants including GI who has cleared her for diet as tolerated and plan is for medical management. No plans for endoscopy. Patient seen by Dr. Loja for small chronic posterior anal fissure unlikely to cause anemia. Steroid cream was added. Patient seen and followed by oncology and anemia panel has been repeated and we will determine and bone marrow biopsy is necessary depending on additional lab work ordered. Patient has been seen by cardiology and Plavix and aspirin on hold and once cleared, recommend resuming baby aspirin only. Repeat hemoglobin today is at 7.4 and another unit of packed RBCs ordered for today. This will be patient's third unit on this admission. BUN 34 and creatinine 1.36. Platelet count 69. Patien t has been afebrile, heart rate 67, blood pressure 1 4467, pulse ox 98% on room air. Review of Systems Constitutional: Reports fatigue, Reports weakness, Denies chills, Denies fever Eyes: denies blurred vision, denies bulging eye, denies decreased vision, denies discharge Ears: deny: decreased hearing, ear discharge, earache, tinnitus Ears, nose, mouth and throat: Denies dysphagia, Denies epistaxis, Denies headache, Denies sore throat Cardiovascular: Reports dyspnea on exertion, denies edema, Reports shortness of breath, Denies chest pain, Denies high blood pressure, Denies lightheadedness, Denies palpitations, Denies syncope Respiratory: Reports dyspnea, Reports sleep apnea, Denies congestion, Denies cough, Denies cough with sputum, Denies pain, Denies pain on inspiration, Denies snoring, Denies wheezing Gastrointestinal: Reports hematochezia, Denies abdominal pain, Denies constipation, Denies diarrhea, Denies heartburn, Denies hematemesis, Denies loss of appetite, Denies nausea, Denies vomiting Genitourinary: Denies dysuria, Denies urgency, Denies urinary frequency Musculoskeletal: Reports frequent falls, Denies gait dysfunction, Denies low back pain, Denies myalgias, Denies neck stiffness Neurological: Denies change in mentation, Denies confusion, Denies gait dysfunction, Denies headaches, Denies loss of vision, Denies memory loss, Denies syncope, Denies tremors, Denies weakness Psychiatric: Reports anxiety, Reports depression, Denies confusion, Denies insomnia, Denies irritability, Denies memory loss, Denies mood swings, Denies suicidal ideation Endocrine: Denies cold intolerance, Denies fatigue, Denies flushing, Denies heat intolerance Hematologic/Lymphatic: Denies lymphadenopathy, Denies lymphedema Physical Examination Gen: This is this is a 74-year-old female patient. She is sitting on the edge of bed and appears to be comfortable and in no acute distress. HEENT: Head is atraumatic, normocephalic. Pupils equal, round. Sclerae is anicteric. NECK: Supple. No JVD. No lymphadenopathy. No thyromegaly. LUNGS: Clear to auscultation. No wheezes or rhonchi. No intercostal retractions. HEART: Regular rate and rhythm. Systolic ejection murmur. ABDOMEN: Soft. Bowel sounds are present. No masses. No tenderness. EXTREMITIES: No pedal edema. No calf tenderness. NEUROLOGICAL: Patient is awake, alert and oriented x3. Cranial nerves 2 through 12 are grossly intact. Assessment and Plan 1. Severe anemia. Status post blood transfusion, the patient has chronic anemia along with macrocytosis, thrombocytopenia. GI consulted as well as hematology and surgery. Continue iron supplements, third unit of packed RBCs ordered for today. Consults with GI, oncology appreciated. 2. Hyperkalemia. Hyperkalemia protocol was given, repeat potassium 5.1. 3. Acute kidney injury with chronic kidney disease stage III. Avoid nephrotoxic agents. Continue lisinopril and Lasix. Monitor renal function daily. 4. Paroxysmal atrial fibrillation. No anticoagulation due to history of GI b leed. Continue amiodarone 200 mg twice daily, Lopressor 50 mg twice daily. 5. History of coronary artery disease with with multiple stent placements starting in 1997. Aspirin 81 mg daily will be resumed, Plavix discontinued. Continue Lopressor. 6. Diabetes mellitus type 2. Levemir 40 units twice daily 7. Hypertension. Continue lisinopril 5 mg daily. 8. Hyperlipidemia. Continue atorvastatin 80 mg at bedtime. 9. Hypothyroidism. Continue levothyroxine 75 mcg daily. 10. Fibromyalgia, stable. 11. History of breast cancer status post bilateral mastectomy. Continue Arimidex. 12. Generalized anxiety disorder and recurrent depression. Continue Effexor XR 150 mg the morning and 75 mg at bedtime. 13. Obstructive sleep apnea. Continue CPAP. 14. GI prophylaxis. Protonix. 15. DVT prophylaxis. SCD and LYNN hose CODE STATUS: No code Discharge plan: Home with homecare Impression and plan of care have been directed as dictated by the signing physician. Abril Riley nurse practitioner acting as scribe for signing physician. Objective - Vital Signs Vital signs: Vital Signs Temp 98.1 F 12/12/19 04:40 Pulse 67 12/12/19 04:40 Resp 18 12/12/19 04:40 BP 144/67 12/12/19 04:40 Pulse Ox 98 12/12/19 04:40 Intake & Output 12/11/19 12/12/19 12/12/19 18:59 06:59 18:59 Intake Total 550 Output Total 0 Balance 550 0 Weight 124 kg Intake: Oral 240 Blood Product 310 Rc Irr As1 Unit 310 [id number] Output: Urine 0 Other: # Voids 3 0 - Labs CBC & Chem 7: 12/12/19 06:54 12/12/19 06:54 Labs: Abnormal Lab Results - Last 24 Hours (Table) 12/10/19 12/10/19 12/10/19 Range/Units 17:59 19:24 19:24 RBC (3.80-5.40) m/uL Hgb (11.4-16.0) gm/dL Hct (34.0-46.0) % MCV (80.0-100.0) fL RDW (11.5-15.5) % Plt Count (150-450) k/uL Macrocytosis Retic Count 5.1 H (0.5-2.0) % BUN (7-17) mg/dL Creatinine (0.52-1.04) mg/dL POC Glucose (mg/dL) (75-99) mg/dL Lactate Dehydrogenase 655 H (313-618) U/L Total Protein (6.3-8.2) g/dL Crossmatch See Detail 12/11/19 12/11/19 12/11/19 Range/Units 11:50 16:43 20:17 RBC (3.80-5.40) m/uL Hgb (11.4-16.0) gm/dL Hct (34.0-46.0) % MCV (80.0-100.0) fL RDW (11.5-15.5) % Plt Count (150-450) k/uL Macrocytosis Retic Count (0.5-2.0) % BUN (7-17) mg/dL Creatinine (0.52-1.04) mg/dL POC Glucose (mg/dL) 109 H 201 H 182 H (75-99) mg/dL Lactate Dehydrogenase (313-618) U/L Total Protein (6.3-8.2) g/dL Crossmatch 12/12/19 12/12/19 Range/Units 06:54 06:54 RBC 2.32 L (3.80-5.40) m/uL Hgb 7.4 L (11.4-16.0) gm/dL Hct 23.7 L (34.0-46.0) % MCV 102.5 H (80.0-100.0) fL RDW 23.0 H (11.5-15.5) % Plt Count 69 L (150-450) k/uL Macrocytosis Marked A Retic Count (0.5-2.0) % BUN 34 H (7-17) mg/dL Creatinine 1.36 H (0.52-1.04) mg/dL POC Glucose (mg/dL) (75-99) mg/dL Lactate Dehydrogenase (313-618) U/L Total Protein 6.0 L (6.3-8.2) g/dL Crossmatch
--- NOTE | 2019-12-12 12:49 | P.PN ---
Subjective Progress Note Date: 12/12/19 Principal diagnosis: Anemia She was seen and examined sitting up at the bedside. The patient denies any abdominal pain, nausea or vomiting. She denies any rectal bleeding or melena. She is status post 2 units of packed red blood cells. Patient seen by Dr. Loja for small chronic posterior anal fissure unlikely to cause anemia. Steroid cream was added. Patient seen and followed by oncology and anemia panel has been repeated and we will determine and bone marrow biopsy is necessary depending on additional lab work ordered. Plavix and aspirin on hold and once cleared, recommend resuming baby aspirin only. Repeat hemoglobin today is at 7.4 and another unit of packed RBCs ordered for today. This will be patient's third unit on this admission. BUN 34 and creatinine 1.36. Platelet count 69. Objective - Vital Signs Vital signs: Vital Signs Temp 98.1 F 12/12/19 04:40 Pulse 67 12/12/19 04:40 Resp 18 12/12/19 04:40 BP 144/67 12/12/19 04:40 Pulse Ox 98 12/12/19 04:40 Intake & Output 12/11/19 12/12/19 12/12/19 18:59 06:59 18:59 Intake Total 550 240 Output Total 0 Balance 550 0 240 Weight 124 kg Intake: Oral 240 240 Blood Product 310 Rc Irr As1 Unit 310 [id number] Output: Urine 0 Other: # Voids 3 0 - Exam General appearance: The patient is alert, oriented, in no acute distress. HET: Head is normocephalic and atraumatic. Conjunctiva pink. Sclera anicteric. Neck: Supple without lymphadenopathy. Trachea midline. Heart: S1 S2. Regular rate and rhythm. Lungs: Clear to auscultation. Abdomen: Soft, nontender, nondistended with bowel sounds. No palpable organomegaly or masses. Extremities: Normal skin color and turgor. No pedal edema bilaterally Neurological: No focal deficits. Alert and oriented 3. - Labs CBC & Chem 7: 12/12/19 06:54 12/12/19 06:54 Labs: Abnormal Lab Results - Last 24 Hours (Table) 12/10/19 12/10/19 12/10/19 Range/Units 17:59 19:24 19:24 RBC (3.80-5.40) m/uL Hgb (11.4-16.0) gm/dL Hct (34.0-46.0) % MCV (80.0-100.0) fL RDW (11.5-15.5) % Plt Count (150-450) k/uL Macrocytosis ESR (0-20) mm/hr Retic Count 5.1 H (0.5-2.0) % BUN (7-17) mg/dL Creatinine (0.52-1.04) mg/dL POC Glucose (mg/dL) (75-99) mg/dL Lactate Dehydrogenase 655 H (313-618) U/L Total Protein (6.3-8.2) g/dL Crossmatch See Detail 12/11/19 12/11/19 12/12/19 Range/Units 16:43 20:17 06:54 RBC 2.32 L (3.80-5.40) m/uL Hgb 7.4 L (11.4-16.0) gm/dL Hct 23.7 L (34.0-46.0) % MCV 102.5 H (80.0-100.0) fL RDW 23.0 H (11.5-15.5) % Plt Count 69 L (150-450) k/uL Macrocytosis Marked A ESR 101 H (0-20) mm/hr Retic Count (0.5-2.0) % BUN (7-17) mg/dL Creatinine (0.52-1.04) mg/dL POC Glucose (mg/dL) 201 H 182 H (75-99) mg/dL Lactate Dehydrogenase (313-618) U/L Total Protein (6.3-8.2) g/dL Crossmatch 12/12/19 12/12/19 Range/Units 06:54 11:48 RBC (3.80-5.40) m/uL Hgb (11.4-16.0) gm/dL Hct (34.0-46.0) % MCV (80.0-100.0) fL RDW (11.5-15.5) % Plt Count (150-450) k/uL Macrocytosis ESR (0-20) mm/hr Retic Count (0.5-2.0) % BUN 34 H (7-17) mg/dL Creatinine 1.36 H (0.52-1.04) mg/dL POC Glucose (mg/dL) 100 H (75-99) mg/dL Lactate Dehydrogenase (313-618) U/L Total Protein 6.0 L (6.3-8.2) g/dL Crossmatch Assessment and Plan Assessment: (1) Anemia Narrative/Plan: 74-year-old female with multiple medical comorbidities who presented to the hospital due to weakness and fatigue. Patient has a known history of anemia recently hospitalized in October. She underwent extensive evaluation with EGD and colonoscopy in 05/2019 with a normal EGD had findings of diverticulosis and polypectomy on colonoscopy. Video capsule endoscopy performed in October during hospitalization negative for any acute GI bleeding. Patient has a macrocytic anemia likely multifactorial given history of breast cancer and prior chemotherapeutics, anemia of chronic disease with no evidence of iron deficiency on laboratory investigation in October or evidence of GI bleeding on endoscopic evaluation. Current Visit: Yes Status: Acute Code(s): D64.9 - ANEMIA, UNSPECIFIED SNOMED Code(s): 377049544 (2) History of colon polyps Current Visit: Yes Status: Acute Code(s): Z86.010 - PERSONAL HISTORY OF COLONIC POLYPS SNOMED Code(s): 884463280 (3) Diverticulosis Current Visit: No Status: Acute Code(s): K57.90 - DVRTCLOS OF INTEST, PART UNSP, W/O PERF OR ABSCESS W/O BLEED SNOMED Code(s): 838130335 Plan: Plan: Supportive care Okay for diet as tolerated and Continue medical management Continue to monitor CBC, BMP, LFTs No plans for endoscopic evaluation at this time, previous evaluation as dictated above including EGD, colonoscopy and video capsule endoscopy Services following patient, steroid cream added for anal fissures Hematology service following the patient, labs pending further plan of care, considering bone marrow biopsy Thank you for allowing us to participate in the care of the patient we will continue to follow The impression and plan of care has been dictated as directed. Dr. Farhene Pena I performed a history and examination of this patient, discussed the same with the dictator. I agree with the dictator's note ,documented as a scribe. Any additional findings or plans will be noted.
[2019-12-12] MEDS: ACETAMINOPHEN TAB 325 MG TAB PO PRN ×2 (14:36→22:33)
--- NOTE | 2019-12-12 14:37 | P.PN ---
Subjective Progress Note Date: 12/12/19 This is a pleasant 74-year-old female with past medical history significant for coronary artery disease and prior stenting of the RCA and December 2018, diabetes, hypertension, hyperlipidemia, paroxysmal atrial fibrillation for which she is not on anticoagulation, history of anemia requiring blood transfusion, patient underwent an EGD and colonoscopy in May of this year, EGD was normal, colonoscopy showed 5-6 mm cecal polyp and 5 mm ascending colon polyp which was removed at that time. She also had an echo cardiac gram with Doppler study performed in October of this year which revealed a normal ejection fraction with moderate aortic stenosis. Patient presented to the hospital on this admission with symptoms of progressive weakness, loss of balance and fall. She denies having any loss of consciousness. Her chest x-ray on presentation here showed mild fibrotic change, with increase in pulmonary vascularity. CT of the head and spine did not reveal any significant findings, EKG showed normal sinus rhythm with a first-degree AV block. Blood pressure 146/60 with a heart rate in the 80s respirations at 20. Lab work was reviewed, white blood cell count on admission 8.1, hemoglobin 6.7, platelet count 85 this morning the white blood cell count 5.0, hemoglobin 6.8, platelet count 71. Sodium on admission 128, potassium 6.6, chloride 99, CO2 19, BUN 54 and creatinine 1.6. This morning sodium 138, potassium 5.1, BUN 43 and creatinine 1.3, magnesium was 1.6. Troponin 0.012. Stool for occult blood was positive. The patient had been on Plavix 75 mg daily along with a baby aspirin at home prior to admission. A cardiology consultation was requested because the patient is on Plavix and aspirin at home, for the stent which was placed in the right coronary artery in December 2018. Patient denies having any chest discomfort and states overall that her breathing has been stable. 12/12/2019 Patient was seen and examined this morning, hemoglobin 7.4 today. Patient was seen by GI service who cleared the patient for diet as tolerated and continued medical management. There is a consultation requested for surgery as well. If it is okay from surgery and GI perspective we will recommend resuming the patient on a baby aspirin daily, no Plavix at this time. Blood pressure today 144/68, heart rate in the 60s, 90% on room air. Objective - Vital Signs Vital signs: Vital Signs Temp 98.1 F 12/12/19 04:40 Pulse 67 12/12/19 04:40 Resp 18 12/12/19 04:40 BP 144/67 12/12/19 04:40 Pulse Ox 98 12/12/19 04:40 Intake & Output 12/11/19 12/12/19 12/12/19 18:59 06:59 18:59 Intake Total 550 480 Output Total 0 Balance 550 0 480 Weight 124 kg Intake: Oral 240 480 Blood Product 310 Rc Irr As1 Unit 310 [id number] Output: Urine 0 Other: # Voids 3 0 - Exam PHYSICAL EXAMINATION: GENERAL: 74-year-old female in no acute distress at the time of my examination HEENT: Head is atraumatic, normocephalic. Pupils equal, round. Sclera anicteric. Conjunctiva are clear. Mucous membranes of the mouth are moist. Neck is supple. There is no elevated jugular venous pressure. No carotid bruit is heard. HEART EXAMINATION: Heart S1 S2 1 systolic ejection murmur is heard CHEST EXAMINATION: Lungs are clear to auscultation and precussion. No chest wall tenderness is noted on palpation or with deep breathing. ABDOMEN: Soft, obese, nontender. Bowel sounds are heard. No organomegaly noted. EXTREMITIES: 2+ peripheral pulses with no evidence of peripheral edema and no calf tenderness noted. NEUROLOGIC patient is awake, alert and oriented 3 . - Labs CBC & Chem 7: 12/12/19 06:54 12/12/19 06:54 Labs: Abnormal Lab Results - Last 24 Hours (Table) 12/10/19 12/10/19 12/11/19 Range/Units 17:59 19:24 16:43 RBC (3.80-5.40) m/uL Hgb (11.4-16.0) gm/dL Hct (34.0-46.0) % MCV (80.0-100.0) fL RDW (11.5-15.5) % Plt Count (150-450) k/uL Macrocytosis ESR (0-20) mm/hr BUN (7-17) mg/dL Creatinine (0.52-1.04) mg/dL POC Glucose (mg/dL) 201 H (75-99) mg/dL Lactate Dehydrogenase 655 H (313-618) U/L Total Protein (6.3-8.2) g/dL Crossmatch See Detail 12/11/19 12/12/19 12/12/19 Range/Units 20:17 06:54 06:54 RBC 2.32 L (3.80-5.40) m/uL Hgb 7.4 L (11.4-16.0) gm/dL Hct 23.7 L (34.0-46.0) % MCV 102.5 H (80.0-100.0) fL RDW 23.0 H (11.5-15.5) % Plt Count 69 L (150-450) k/uL Macrocytosis Marked A ESR 101 H (0-20) mm/hr BUN 34 H (7-17) mg/dL Creatinine 1.36 H (0.52-1.04) mg/dL POC Glucose (mg/dL) 182 H (75-99) mg/dL Lactate Dehydrogenase (313-618) U/L Total Protein 6.0 L (6.3-8.2) g/dL Crossmatch 12/12/19 Range/Units 11:48 RBC (3.80-5.40) m/uL Hgb (11.4-16.0) gm/dL Hct (34.0-46.0) % MCV (80.0-100.0) fL RDW (11.5-15.5) % Plt Count (150-450) k/uL Macrocytosis ESR (0-20) mm/hr BUN (7-17) mg/dL Creatinine (0.52-1.04) mg/dL POC Glucose (mg/dL) 100 H (75-99) mg/dL Lactate Dehydrogenase (313-618) U/L Total Protein (6.3-8.2) g/dL Crossmatch Assessment and Plan Plan: Assessment and plan #1 symptoms of weakness with associated falls, no clear-cut evidence of syncope. Symptoms likely secondary to anemia. #2 coronary artery disease with prior RCA stenting in December 2018 #3 hypertension #4 diabetes #5 hyperlipidemia #6 moderate aortic stenosis #7 paroxysmal atrial fibrillation, not on anticoagulation #8 history of anemia #9 sleep apnea #10 hypothyroidism #11 history of right-sided breast cancer status post bilateral mastectomy #12 anxiety and depression #13 hyperkalemia #14 acute kidney injury Plan From cardiology's perspective, patient may be resumed on a baby aspirin daily, we will discontinue the Plavix completely. If the patient is cleared by surgery and GI service to be resumed on aspirin. DNP note has been reviewed, I agree with a documented findings and plan of care. Patient was seen and examined.
[2019-12-12 17:07] LABS: Glucose,Whole Blood 112 mg/dL (75-99)
[2019-12-12 20:11] LABS: Glucose,Whole Blood 141 mg/dL (75-99)
[2019-12-12] MEDS: VENLAFAXINE HCL ER 75 MG CAP PO SCH (20:46)
[2019-12-12] MEDS: ATORVASTATIN 80 MG TAB PO SCH (20:46)
[2019-12-12] MEDS: ANASTROZOLE 1 MG TAB PO SCH (20:46)
[2019-12-12] MEDS: MELATONIN 3 MG TABLET PO SCH (20:46)
[2019-12-12] MEDS: GABAPENTIN 300 MG CAP PO PRN (22:33)
[2019-12-13] MEDS: SODIUM CHLORIDE 0.9% 1,000 ML IV SCH ×2 (05:24→09:38)
[2019-12-13 07:03] LABS: Glucose,Whole Blood 99 mg/dL (75-99)
[2019-12-13] MEDS: LEVOTHYROXINE 75 MCG TAB PO SCH (07:03)
[2019-12-13] MEDS: LEVOTHYROXINE 100 MCG TAB PO SCH (07:03)
[2019-12-13] MEDS: INSULIN DETEMIR (LEVEMIR) 100 UNIT/ML SYR SQ SCH ×2 (07:05→08:30)
[2019-12-13 07:43] LABS: Anisocytosis Moderate; Basophils % (A) 0 %; Eosinophils # (A) 0.1 k/uL (0-0.7); Eosinophils % (A) 3 %; HCT 24.2 % (34.0-46.0); HGB 7.7 gm/dL (11.4-16.0); Hypochromasia Slight; Lymphocytes # (A) 1.2 k/uL (1.0-4.8); Lymphocytes % (A) 23 %; MCH 32.8 pg (25.0-35.0); MCHC 31.9 g/dL (31.0-37.0); MCV 102.8 fL (80.0-100.0); Macrocytosis Marked; Mean Platelet Volume 8.9; Monocytes # (A) 0.6 k/uL (0-1.0); Monocytes % (A) 11 %; Neutrophils % (A) 59 %; Poikilocytosis Slight; RBC 2.36 m/uL (3.80-5.40); RDW 22.7 % (11.5-15.5); WBC 5.1 k/uL (3.8-10.6)
[2019-12-13 07:49] LABS: Platelet Count 65 k/uL (150-450)
[2019-12-13 07:57] LABS: Albumin 3.5 g/dL (3.5-5.0); Calcium 8.7 mg/dL (8.4-10.2); Potassium 4.6 mmol/L (3.5-5.1); Total Bilirubin 0.5 mg/dL (0.2-1.3)
[2019-12-13 08:28] LABS: Glucose,Whole Blood 138 mg/dL (75-99)
[2019-12-13] MEDS: AMIODARONE 200 MG TAB PO SCH (08:31)
[2019-12-13] MEDS: lisinopriL 5 MG TAB PO SCH (08:31)
[2019-12-13] MEDS: SPIRONOLACTONE 25 MG TAB PO SCH (08:31)
[2019-12-13] MEDS: metFORMIN 500 MG TAB PO SCH (08:31)
[2019-12-13] MEDS: METOPROLOL TARTRATE 50 MG TAB PO SCH (08:31)
[2019-12-13] MEDS: VENLAFAXINE HCL ER 150 MG CAP PO SCH (08:32)
[2019-12-13] MEDS: CYANOCOBALAMIN 500 MCG TAB PO SCH (08:32)
[2019-12-13] MEDS: FERROUS SULFATE 325 MG TAB PO SCH (08:32)
[2019-12-13] MEDS: FUROSEMIDE 20 MG TAB PO SCH (08:32)
[2019-12-13] MEDS: DOCUSATE 100 MG CAP PO SCH (08:32)
[2019-12-13] MEDS: HYDROCORTISONE SUPPOSITORY 25 MG SUPP RECTAL SCH (08:37)
--- NOTE | 2019-12-13 08:55 | P.DS ---
Providers Date of admission: 12/10/19 21:20 Expected date of discharge: 12/13/19 Attending physician: Bereket Holliday Consults: 12/10/19 21:20 Consult Physician Urgent Consulting Provider: Mick Baker Consult Reason/Comments: GI bleed, anemia Do you want consulting provider notified?: Yes 12/11/19 09:19 Consult Physician Routine Consulting Provider: Saroj Siddiqui Consult Reason/Comments: anemia., [place] Do you want consulting provider notified?: Yes Consult Physician Routine Consulting Provider: Mary Loja Consult Reason/Comments: Hemorrhoid with GI Bleed Do you want consulting provider notified?: Yes Primary care physician: Jaxon Palacios [facility] Course: This is a 74-year-old female patient of Dr. Palacios and Dr. Pena she has a past medical history of coronary artery disease status post stent placement, proximal atrial fibrillation, diabetes type 2, fibromyalgia, hypertension, hyperlipidemia, hypothyroidism, obstructive sleep apnea on CPAP, history of right sided breast cancer status post bilateral mastectomy, generalized anxiety, recurrent depression, anemia. She was recently hospitalized the beginning of October for symptomatic anemia and in May before that. She underwent an EGD with biopsy and colonoscopy with snare polypectomy. The upper endoscopy was essentially normal, colonoscopy revealed cecal polyps and ascending colon polyp. Patient was sent to [facility] after her hospital stay and received 1 unit of packed red blood cells before she was discharged home. Patient came into the emergency department for worsening shortness of breath and generalized weakness with frequent falls. Patient reports she lost her balance at home and fell backwards and hit her head. CT of the brain was negative, hemoglobin was 6.7 she was given 1 unit of packed red blood cells. Creatinine was 1.6, BUN 54, potassium was 6.6. Patient was given hyperkalemia protocol with calcium gluconate and albuterol, insulin and dextrose and Kayexalate. She had a positive fecal occult. This morning potassium is down to 5.1, hemoglobin 6.8, creatinine 1.3 BUN 43. Patient complains of a large bleeding hemorrhoid, surgery was consulted, as well as GI and hematology. 12/11: Patient has been seen by multiple consultants including GI who has cleared her for diet as tolerated and plan is for medical management. No plans for endoscopy. Patient seen by Dr. Loja for small chronic posterior anal fissure unlikely to cause anemia. Steroid cream was added. Patient seen and followed by oncology and anemia panel has been repeated and we will determine and bone marrow biopsy is necessary depending on additional lab work ordered. Patient has been seen by cardiology and Plavix and aspirin on hold and once cleared, recommend resuming baby aspirin only. Repeat hemoglobin today is at 7.4 and another unit of packed RBCs ordered for today. This will be patient's third unit on this admission. BUN 34 and creatinine 1.36. Platelet count 69. Patient has been afebrile, heart rate 67, blood pressure 1 4467, pulse ox 98% on room air. 12/12: Patient's hemoglobin today is at 7.7. BUN 35 and creatinine 1.29. Blood sugars running between 99 and 141. Patient has been afebrile, heart rate 60, blood pressure 126/66, pulse ox 97% on room air. Patient denies having any chest pain or shortness of breath. She is found today sitting up in a chair and appears to be comfortable. Cardiology has cleared the patient for baby aspirin. At this time, we'll hold baby aspirin to follow-up in the office. Oncology is planning for bone marrow biopsy. Patient will be discharged home today in stable condition. Assessment and Plan 1. Severe anemia with macrocytosis, thrombocytopenia status post transfusion of 2 units of packed RBCs most likely secondary to bone marrow suppression of unclear etiology. 2. Hyperkalemia. 3. Acute kidney injury with chronic kidney disease stage III. 4. Paroxysmal atrial fibrillation. 5. History of coronary artery disease with with multiple stent placements starting in 1997. 6. Diabetes mellitus type 2. 7. Hypertension. 8. Hyperlipidemia. 9. Hypothyroidism. 10. Fibromyalgia, stable. 11. History of breast cancer status post bilateral mastectomy. 12. Generalized anxiety disorder and recurrent depression. 13. Obstructive sleep apnea. Discharge plan: Home with homecare Impression and plan of care have been directed as dictated by the signing physician. Abril Riley nurse practitioner acting as scribe for signing physician. Patient Condition at Discharge: Stable Plan - Discharge Summary Discharge Rx Participant: No New Discharge Prescriptions: New Hydrocortisone Suppository [Anusol-Hc] 25 mg RECTAL BID #60 supp Continue Anastrozole [Arimidex] 1 mg PO HS Insulin Detemir (Levemir) [Levemir] 40 unit SQ BID Spironolactone [Aldactone] 25 mg PO DAILY Metoprolol Tartrate [Lopressor] 50 mg PO BID Venlafaxine HCl [Effexor XR] 150 mg PO DAILY Venlafaxine HCl [Effexor XR] 75 mg PO HS Melatonin 3 mg PO HS lisinopriL [Zestril] 5 mg PO DAILY Levothyroxine Sodium [Synthroid] 75 mcg PO DAILY Levothyroxine Sodium [Synthroid] 200 mcg PO DAILY Atorvastatin [Lipitor] 80 mg PO HS #30 tab Cyanocobalamin [Vitamin B-12] 500 mcg PO DAILY Amiodarone [Cordarone] 200 mg PO BID Docusate [Colace] 100 mg PO DAILY Ketoconazole 2% Cream [Nizoral 2%] 1 applic TOPICAL BID PRN PRN Reason: yeast infection abdominal fold Magnesium Chloride [Slow-Mag] 64 mg PO DAILY Gabapentin 600 mg PO Q6H PRN #12 tab PRN Reason: Pain traMADol HCL 50 mg PO TID PRN #9 tab PRN Reason: Pain metFORMIN HCL [Glucophage] 1,000 mg PO BID #60 tab Furosemide [Lasix] 40 mg PO DAILY Potassium Otc(Unknown Dose) 1 tab PO DAILY Nitroglycerin Sl Tabs [Nitrostat] 0.4 mg SL Q5M PRN PRN Reason: Chest Pain INSULIN LISPRO (HumaLOG) [humaLOG] See Protocol SQ ACHS Ferrous Sulfate [Iron (65 MG Elemental)] 325 mg PO DAILY Furosemide [Lasix] 20 mg PO DAILY@1600 Discontinued Aspirin EC [Ecotrin Low Dose] 81 mg PO DAILY Clopidogrel [Plavix] 75 mg PO DAILY Discharge Medication List Anastrozole [Arimidex] 1 mg PO HS 01/01/14 [History] Insulin Detemir (Levemir) [Levemir] 40 unit SQ BID 01/01/14 [History] Spironolactone [Aldactone] 25 mg PO DAILY 01/01/14 [History] Levothyroxine Sodium [Synthroid] 75 mcg PO DAILY 01/20/19 [History] Levothyroxine Sodium [Synthroid] 200 mcg PO DAILY 01/20/19 [History] Melatonin 3 mg PO HS 01/20/19 [History] Metoprolol Tartrate [Lopressor] 50 mg PO BID 01/20/19 [History] Venlafaxine HCl [Effexor XR] 75 mg PO HS 01/20/19 [History] Venlafaxine HCl [Effexor XR] 150 mg PO DAILY 01/20/19 [History] lisinopriL [Zestril] 5 mg PO DAILY 01/20/19 [History] Atorvastatin [Lipitor] 80 mg PO HS #30 tab 01/24/19 [Rx] Amiodarone [Cordarone] 200 mg PO BID 05/03/19 [History] Cyanocobalamin [Vitamin B-12] 500 mcg PO DAILY 05/03/19 [History] Docusate [Colace] 100 mg PO DAILY 11/07/19 [History] Ketoconazole 2% Cream [Nizoral 2%] 1 applic TOPICAL BID PRN 11/07/19 [History] Magnesium Chloride [Slow-Mag] 64 mg PO DAILY 11/07/19 [History] Gabapentin 600 mg PO Q6H PRN #12 tab 11/10/19 [Rx] metFORMIN HCL [Glucophage] 1,000 mg PO BID #60 tab 11/10/19 [Rx] traMADol HCL 50 mg PO TID PRN #9 tab 11/10/19 [Rx] Ferrous Sulfate [Iron (65 MG Elemental)] 325 mg PO DAILY 12/10/19 [History] Furosemide [Lasix] 20 mg PO DAILY@1600 12/10/19 [History] Furosemide [Lasix] 40 mg PO DAILY 12/10/19 [History] INSULIN LISPRO (HumaLOG) [humaLOG] See Protocol SQ ACHS 12/10/19 [History] Nitroglycerin Sl Tabs [Nitrostat] 0.4 mg SL Q5M PRN 12/10/19 [History] Potassium Otc(Unknown Dose) 1 tab PO DAILY 12/10/19 [History] Hydrocortisone Suppository [Anusol-Hc] 25 mg RECTAL BID #60 supp 12/13/19 [Rx] Follow up Appointment(s)/Referral(s): [facility] [Provider Group] - 01/22[place] 4:00 pm [place] [facility] [place] Saroj Siddiqui MD [STAFF PHYSICIAN] - 2 Weeks (Game Warden unable to answer the call. Tried multiple times.) [facility], [NON-STAFF] - 1 Week Jaxon Palacios MD [Primary Care Provider] - 09/23/20 11:15 am Ambulatory/Diagnostic Orders: Complete Blood Count w/diff [LAB.AMB] Location: None Selected Patient Instructions/Handouts: Anemia (DC) Discharge Disposition: HOME WITH HOME HEALTH SERVICES
--- NOTE | 2019-12-13 09:46 | P.PN ---
Subjective Progress Note Date: 12/13/19 This is a pleasant 74-year-old female with past medical history significant for coronary artery disease and prior stenting of the RCA and December 2018, diabetes, hypertension, hyperlipidemia, paroxysmal atrial fibrillation for which she is not on anticoagulation, history of anemia requiring blood transfusion, patient underwent an EGD and colonoscopy in May of this year, EGD was normal, colonoscopy showed 5-6 mm cecal polyp and 5 mm ascending colon polyp which was removed at that time. She also had an echo cardiac gram with Doppler study performed in October of this year which revealed a normal ejection fraction with moderate aortic stenosis. Patient presented to the hospital on this admission with symptoms of progressive weakness, loss of balance and fall. She denies having any loss of consciousness. Her chest x-ray on presentation here showed mild fibrotic change, with increase in pulmonary vascularity. CT of the head and spine did not reveal any significant findings, EKG showed normal sinus rhythm with a first-degree AV block. Blood pressure 146/60 with a heart rate in the 80s respirations at 20. Lab work was reviewed, white blood cell count on admission 8.1, hemoglobin 6.7, platelet count 85 this morning the white blood cell count 5.0, hemoglobin 6.8, platelet count 71. Sodium on admission 128, potassium 6.6, chloride 99, CO2 19, BUN 54 and creatinine 1.6. This morning sodium 138, potassium 5.1, BUN 43 and creatinine 1.3, magnesium was 1.6. Troponin 0.012. Stool for occult blood was positive. The patient had been on Plavix 75 mg daily along with a baby aspirin at home prior to admission. A cardiology consultation was requested because the patient is on Plavix and aspirin at home, for the stent which was placed in the right coronary artery in December 2018. Patient denies having any chest discomfort and states overall that her breathing has been stable. 12/12/2019 Patient was seen and examined this morning, hemoglobin 7.4 today. Patient was seen by GI service who cleared the patient for diet as tolerated and continued medical management. There is a consultation requested for surgery as well. If it is okay from surgery and GI perspective we will recommend resuming the patient on a baby aspirin daily, no Plavix at this time. Blood pressure today 144/68, heart rate in the 60s, 90% on room air. 12/13/2019 Patient was seen and examined this morning, hemoglobin this morning is 7.7, platelet count 65. White blood cell count 5.1. Sodium 137, potassium 4.6, BUN 35, creatinine 1.2. Anticipating discharge home today. Objective - Vital Signs Vital signs: Vital Signs Temp 98.1 F 12/13/19 03:37 Pulse 60 12/13/19 03:37 Resp 18 12/13/19 03:37 BP 126/66 12/13/19 03:37 Pulse Ox 97 12/13/19 03:37 Intake & Output 12/12/19 12/13/19 12/13/19 18:59 06:59 18:59 Intake Total 480 240 120 Output Total 400 Balance 480 -160 120 Weight 121.7 kg Intake: Oral 480 240 120 Output: Urine 400 Other: # Voids 3 - Exam PHYSICAL EXAMINATION: GENERAL: 74-year-old female in no acute distress at the time of my examination HEENT: Head is atraumatic, normocephalic. Pupils equal, round. Sclera anicteric. Conjunctiva are clear. Mucous membranes of the mouth are moist. Neck is supple. There is no elevated jugular venous pressure. No carotid bruit is heard. HEART EXAMINATION: Heart S1 S2 1 systolic ejection murmur is heard CHEST EXAMINATION: Lungs are clear to auscultation and precussion. No chest wall tenderness is noted on palpation or with deep breathing. ABDOMEN: Soft, obese, nontender. Bowel sounds are heard. No organomegaly noted. EXTREMITIES: 2+ peripheral pulses with no evidence of peripheral edema and no calf tenderness noted. NEUROLOGIC patient is awake, alert and oriented 3 . - Labs CBC & Chem 7: 12/13/19 07:14 12/13/19 07:14 Labs: Abnormal Lab Results - Last 24 Hours (Table) 12/10/19 12/12/19 12/12/19 Range/Units 17:59 06:54 11:48 RBC (3.80-5.40) m/uL Hgb (11.4-16.0) gm/dL Hct (34.0-46.0) % MCV (80.0-100.0) fL RDW (11.5-15.5) % Plt Count (150-450) k/uL Macrocytosis ESR 101 H (0-20) mm/hr BUN (7-17) mg/dL Creatinine (0.52-1.04) mg/dL POC Glucose (mg/dL) 100 H (75-99) mg/dL Total Protein (6.3-8.2) g/dL Crossmatch See Detail 12/12/19 12/12/19 12/13/19 Range/Units 16:59 20:09 07:14 RBC 2.36 L (3.80-5.40) m/uL Hgb 7.7 L (11.4-16.0) gm/dL Hct 24.2 L (34.0-46.0) % MCV 102.8 H (80.0-100.0) fL RDW 22.7 H (11.5-15.5) % Plt Count 65 L (150-450) k/uL Macrocytosis Marked A ESR (0-20) mm/hr BUN (7-17) mg/dL Creatinine (0.52-1.04) mg/dL POC Glucose (mg/dL) 112 H 141 H (75-99) mg/dL Total Protein (6.3-8.2) g/dL Crossmatch 12/13/19 12/13/19 Range/Units 07:14 08:27 RBC (3.80-5.40) m/uL Hgb (11.4-16.0) gm/dL Hct (34.0-46.0) % MCV (80.0-100.0) fL RDW (11.5-15.5) % Plt Count (150-450) k/uL Macrocytosis ESR (0-20) mm/hr BUN 35 H (7-17) mg/dL Creatinine 1.29 H (0.52-1.04) mg/dL POC Glucose (mg/dL) 138 H (75-99) mg/dL Total Protein 6.0 L (6.3-8.2) g/dL Crossmatch Assessment and Plan Plan: Assessment and plan #1 symptoms of weakness with associated falls, no clear-cut evidence of syncope. Symptoms likely secondary to anemia. #2 coronary artery disease with prior RCA stenting in December 2018 #3 hypertension #4 diabetes #5 hyperlipidemia #6 moderate aortic stenosis #7 paroxysmal atrial fibrillation, not on anticoagulation #8 history of anemia #9 sleep apnea #10 hypothyroidism #11 history of right-sided breast cancer status post bilateral mastectomy #12 anxiety and depression #13 hyperkalemia #14 acute kidney injury Plan From cardiology's perspective, patient may be resumed on a baby aspirin daily, we will discontinue the Plavix completely. If the patient is cleared by surgery . Anticipating discharge home today. DNP note has been reviewed, I agree with a documented findings and plan of care. Patient was seen and examined.
[2019-12-13 09:55] VITALS: BP 115/54; PULSE 67; RESP 20; TEMP 97.7
[2019-12-13] MEDS: ACETAMINOPHEN TAB 325 MG TAB PO PRN (11:25)
--- NOTE | 2019-12-13 11:40 | P.PN ---
Subjective Progress Note Date: 12/13/19 Principal diagnosis: Anemia The patient was seen and examined at bedside. She denies any abdominal pain, nausea, or vomiting. She denies any rectal bleeding or melena. She is status post 2 units of packed red blood cells this admission. She has had an extensive workup for EGD colonoscopy as well as a small bowel capsule without any evidence of bleeding. She is being followed by hematology for anemia. Patient is being discharged home today with follow-up with hematology and PCP. Objective - Vital Signs Vital signs: Vital Signs Temp 97.7 F 12/13/19 08:00 Pulse 67 12/13/19 08:00 Resp 20 12/13/19 08:00 BP 115/54 12/13/19 08:00 Pulse Ox 95 12/13/19 08:00 Intake & Output 12/12/19 12/13/19 12/13/19 18:59 06:59 18:59 Intake Total 480 240 120 Output Total 400 Balance 480 -160 120 Weight 121.7 kg Intake: Oral 480 240 120 Output: Urine 400 Other: # Voids 3 - Exam General appearance: The patient is alert, oriented, in no acute distress. HET: Head is normocephalic and atraumatic. Conjunctiva pink. Sclera anicteric. Neck: Supple without lymphadenopathy. Trachea midline. Heart: S1 S2. Regular rate and rhythm. Lungs: Clear to auscultation. Abdomen: Soft, nontender, nondistended with bowel sounds. No palpable organomegaly or masses. Extremities: Normal skin color and turgor. No pedal edema bilaterally Neurological: No focal deficits. Alert and oriented 3. - Labs CBC & Chem 7: 12/13/19 07:14 12/13/19 07:14 Labs: Abnormal Lab Results - Last 24 Hours (Table) 12/10/19 12/12/19 12/12/19 Range/Units 17:59 11:48 16:59 RBC (3.80-5.40) m/uL Hgb (11.4-16.0) gm/dL Hct (34.0-46.0) % MCV (80.0-100.0) fL RDW (11.5-15.5) % Plt Count (150-450) k/uL Macrocytosis BUN (7-17) mg/dL Creatinine (0.52-1.04) mg/dL POC Glucose (mg/dL) 100 H 112 H (75-99) mg/dL Total Protein (6.3-8.2) g/dL Crossmatch See Detail 12/12/19 12/13/19 12/13/19 Range/Units 20:09 07:14 07:14 RBC 2.36 L (3.80-5.40) m/uL Hgb 7.7 L (11.4-16.0) gm/dL Hct 24.2 L (34.0-46.0) % MCV 102.8 H (80.0-100.0) fL RDW 22.7 H (11.5-15.5) % Plt Count 65 L (150-450) k/uL Macrocytosis Marked A BUN 35 H (7-17) mg/dL Creatinine 1.29 H (0.52-1.04) mg/dL POC Glucose (mg/dL) 141 H (75-99) mg/dL Total Protein 6.0 L (6.3-8.2) g/dL Crossmatch 12/13/19 Range/Units 08:27 RBC (3.80-5.40) m/uL Hgb (11.4-16.0) gm/dL Hct (34.0-46.0) % MCV (80.0-100.0) fL RDW (11.5-15.5) % Plt Count (150-450) k/uL Macrocytosis BUN (7-17) mg/dL Creatinine (0.52-1.04) mg/dL POC Glucose (mg/dL) 138 H (75-99) mg/dL Total Protein (6.3-8.2) g/dL Crossmatch Assessment and Plan Assessment: (1) Anemia Narrative/Plan: 74-year-old female with multiple medical comorbidities who presented to the hospital due to weakness and fatigue. Patient has a known history of anemia recently hospitalized in October. She underwent extensive evaluation with EGD and colonoscopy in 05/2019 with a normal EGD had findings of diverticulosis and polypectomy on colonoscopy. Video capsule endoscopy performed in October during hospitalization negative for any acute GI bleeding. Patient has a macrocytic anemia likely multifactorial given history of breast cancer and prior ch emotherapeutics, anemia of chronic disease with no evidence of iron deficiency on laboratory investigation in October or evidence of GI bleeding on endoscopic evaluation. Current Visit: Yes Status: Acute Code(s): D64.9 - ANEMIA, UNSPECIFIED SNOMED Code(s): 770002707 (2) History of colon polyps Current Visit: Yes Status: Acute Code(s): Z86.010 - PERSONAL HISTORY OF COLONIC POLYPS SNOMED Code(s): 388471667 (3) Diverticulosis Current Visit: No Status: Acute Code(s): K57.90 - DVRTCLOS OF INTEST, PART UNSP, W/O PERF OR ABSCESS W/O BLEED SNOMED Code(s): 660658118 Plan: Plan: Supportive care Okay for diet as tolerated and Continue medical management Continue to monitor CBC, BMP, LFTs No plans for endoscopic evaluation at this time, previous evaluation as dictated above including EGD, colonoscopy and video capsule endoscopy Services following patient, steroid cream added for anal fissures Hematology service following the patient, labs pending further plan of care, considering patient bone marrow biopsy Thank you for allowing us to participate in the care of the patient we will c [email or web address] to follow The impression and plan of care has been dictated as directed. Dr. Farheen Pena I performed a history and examination of this patient, discussed the same with the dictator. I agree with the dictator's note ,documented as a scribe. Any additional findings or plans will be noted.
[2019-12-13 11:44] LABS: Glucose,Whole Blood 90 mg/dL (75-99)
--- NOTE | 2019-12-13 14:14 | P.PN ---
Subjective Progress Note Date: 12/13/19 Principal diagnosis: Falls/Anemia Planning BMB tomorrow, patient aware, scheduling per office. Objective - Vital Signs Vital signs: Vital Signs Temp 97.7 F 12/13/19 08:00 Pulse 67 12/13/19 08:00 Resp 20 12/13/19 08:00 BP 115/54 12/13/19 08:00 Pulse Ox 95 12/13/19 08:00 Intake & Output 12/12/19 12/13/19 12/13/19 18:59 06:59 18:59 Intake Total 480 240 360 Output Total 400 Balance 480 -160 360 Weight 121.7 kg Intake: Oral 480 240 360 Output: Urine 400 Other: # Voids 3 - Exam - Constitutional General appearance: cooperative, morbidly obese, no acute distress - EENT Eyes: EOMI, dentition normal ENT: hard of hearing, NA/AT, normal oropharynx - Neck Neck: normal ROM - Respiratory Respiratory: bilateral: diminished (bases, mild increased effort) - Cardiovascular Rhythm: irregularly irregular leg Peripheral Edema: bilateral: Trace - Gastrointestinal General gastrointestinal: normal bowel sounds, soft, tenderness - Integumentary Integumentary: pale - Neurologic non-focal - Musculoskeletal Musculoskeletal: generalized weakness - Psychiatric POor historian, fatigued Psychiatric: A&O x's 3 - Labs CBC & Chem 7: 12/13/19 07:14 12/13/19 07:14 Labs: Abnormal Lab Results - Last 24 Hours (Table) 12/10/19 12/12/19 12/12/19 Range/Units 17:59 16:59 20:09 RBC (3.80-5.40) m/uL Hgb (11.4-16.0) gm/dL Hct (34.0-46.0) % MCV (80.0-100.0) fL RDW (11.5-15.5) % Plt Count (150-450) k/uL Macrocytosis BUN (7-17) mg/dL Creatinine (0.52-1.04) mg/dL POC Glucose (mg/dL) 112 H 141 H (75-99) mg/dL Total Protein (6.3-8.2) g/dL Crossmatch See Detail 12/13/19 12/13/19 12/13/19 Range/Units 07:14 07:14 08:27 RBC 2.36 L (3.80-5.40) m/uL Hgb 7.7 L (11.4-16.0) gm/dL Hct 24.2 L (34.0-46.0) % MCV 102.8 H (80.0-100.0) fL RDW 22.7 H (11.5-15.5) % Plt Count 65 L (150-450) k/uL Macrocytosis Marked A BUN 35 H (7-17) mg/dL Creatinine 1.29 H (0.52-1.04) mg/dL POC Glucose (mg/dL) 138 H (75-99) mg/dL Total Protein 6.0 L (6.3-8.2) g/dL Crossmatch Assessment and Plan Plan: Assessment and recommendations: Macrocytic Anemia: - Review of completed [id number] and scopes and no clear definitive diagnosis, therefore bone marrow biopsy to be performed 12/14/19 Thrombocytopenia: - Slowly worsening over the past couple months Recurrent falls: - Safety and plan for Rehab again at D/C per primary team. Hx: DVT: - Was on Warfarin, on hold Hx: Right Breast Cancer: - Non-adherence with follow-ups and arimidex over the years - Diagnosed in 2008, currently still trying to complete full 10 years of arimidex. Plan: 12/13/19 - Transfuse hemoglobin less than 7 - Bone Marrow Biopsy Physician attest: I have completed the full history and physical and agree with above dictation, dictated as a scribe
== END 2019-12-13 14:05 | disposition home health service (06) | DRG 812 ==
LOC: EC 16:54 → 3SCARD 21:20
PROVIDERS: ADMIT Internal Medicine Geriatric Medicine; ATTEND Internal Medicine Geriatric Medicine
PROC: 30233N1 Transfusion of Nonautologous Red Blood Cells into Peripheral Vein, Percutaneous Approach (ICD-10-PCS; principal; 2019-12-11)
DX: D53.9 Nutritional anemia, unspecified (principal); F33.9 Major depressive disorder, recurrent, unspecified; I13.0 Hypertensive heart and chronic kidney disease with heart failure and stage 1 through stage 4 chronic kidney disease, or unspecified chronic kidney disease; I50.32 Chronic diastolic (congestive) heart failure; N17.9 Acute kidney failure, unspecified; D63.1 Anemia in chronic kidney disease; N18.3 Chronic kidney disease, stage 3 (moderate); E03.9 Hypothyroidism, unspecified; E11.22 Type 2 diabetes mellitus with diabetic chronic kidney disease; E78.5 Hyperlipidemia, unspecified; F41.1 Generalized anxiety disorder; G47.33 Obstructive sleep apnea (adult) (pediatric); I25.10 Atherosclerotic heart disease of native coronary artery without angina pectoris; E87.5 Hyperkalemia; D69.6 Thrombocytopenia, unspecified; M79.7 Fibromyalgia; F41.9 Anxiety disorder, unspecified; K60.2 Anal fissure, unspecified; K64.9 Unspecified hemorrhoids; W01.0XXA Fall on same level from slipping, tripping and stumbling without subsequent striking against object, initial encounter; D75.9 Disease of blood and blood-forming organs, unspecified; I48.0 Paroxysmal atrial fibrillation; R29.6 Repeated falls; Z79.899 Other long term (current) drug therapy; Z79.890 Hormone replacement therapy; I25.2 Old myocardial infarction; Z79.82 Long term (current) use of aspirin; Z88.2 Allergy status to sulfonamides; Z88.8 Allergy status to other drugs, medicaments and biological substances; Z91.09 Other allergy status, other than to drugs and biological substances; Z82.49 Family history of ischemic heart disease and other diseases of the circulatory system; Z90.49 Acquired absence of other specified parts of digestive tract; Z95.5 Presence of coronary angioplasty implant and graft; Z87.19 Personal history of other diseases of the digestive system; Z79.4 Long term (current) use of insulin; Z79.02 Long term (current) use of antithrombotics/antiplatelets; Z87.891 Personal history of nicotine dependence; Z83.3 Family history of diabetes mellitus; Z90.13 Acquired absence of bilateral breasts and nipples; Z85.3 Personal history of malignant neoplasm of breast; Z86.718 Personal history of other venous thrombosis and embolism; Y92.009 Unspecified place in unspecified non-institutional (private) residence as the place of occurrence of the external cause
CPT/HCPCS: 36415; 36430; 70450; 71046; 72125; 80053; 81001; 82272; 82607; 82728; 82746; 83010; 83540; 83550; 83605; 83615; 83735; 83921; 84100; 84132; 84484; 85025; 85045; 85610; 85652; 85730; 86038; 86431; 86850; 86900; 86901; 86920; 93005; 94640; 96361; 96365; 96375; 99285

== ENCOUNTER 2020-07-26 14:53 | Inpatient (IN) | payer MEDICARE ==
--- NOTE | 2020-07-26 15:57 | ED ---
Recheck HPI - General Chief Complaint: Recheck/Abnormal Lab/Rx Stated Complaint: Low Hemoglobin Time Seen by Provider: 07/26/20 15:36 Source: patient, RN notes reviewed Mode of arrival: wheelchair - History of Present Illness Initial Comments: Patient is a 75 she'll female that presents to emergency department with low hemoglobin. She notes that she was recently seen by her primary care or labs were run and her hemoglobin was 5.29. She does have refractory anemia as part of her medical history. She comes in frequently to get transfusions as needed. She gets her hemoglobin tested weakly at her primary care. Daughter/braille typist noted that they have been able to go and recently due to her being sick and having Covid. Patient only states that she is feeling fatigued and denied any other issues or complaints. She was resting comfortably in bed on her side during exam and interview in no apparent distress or pain. She denied chest pain shortness of breath headache nausea vomiting diarrhea constipation fever chills. - Related Data Home Medications Medication Instructions Recorded Confirmed Insulin Detemir (Levemir) [Levemir] 40 unit SQ AC-BRKFST 01/01/14 07/26/20 Spironolactone [Aldactone] 25 mg PO DAILY 01/01/14 07/26/20 Levothyroxine Sodium [Synthroid] 75 mcg PO DAILY 01/20/19 07/26/20 Levothyroxine Sodium [Synthroid] 200 mcg PO DAILY 01/20/19 07/26/20 Metoprolol Tartrate [Lopressor] 50 mg PO BID 01/20/19 07/26/20 Venlafaxine HCl [Effexor XR] 75 mg PO HS 01/20/19 07/26/20 Venlafaxine HCl [Effexor XR] 150 mg PO DAILY 01/20/19 07/26/20 lisinopriL [Zestril] 5 mg PO HS 01/20/19 07/26/20 Amiodarone [Cordarone] 200 mg PO BID 05/03/19 07/26/20 Cyanocobalamin [Vitamin B-12] 500 mcg PO DAILY 05/03/19 07/26/20 Furosemide [Lasix] 20 mg PO DAILY@1600 12/10/19 07/26/20 Furosemide [Lasix] 40 mg PO DAILY 12/10/19 07/26/20 INSULIN LISPRO (HumaLOG) [humaLOG] See Protocol SQ AC-TID 12/10/19 07/26/20 Acetaminophen-Codeine 300-30mg 1 tab PO HS 07/26/20 07/26/20 [Tylenol w/codeine #3] Albuterol Inhaler [Ventolin Hfa 2 puff INHALATION RT-Q6H PRN 07/26/20 07/26/20 Inhaler] Aspirin EC [Ecotrin] 325 mg PO DAILY 07/26/20 07/26/20 Atorvastatin [Lipitor] 80 mg PO DAILY 07/26/20 07/26/20 Ergocalciferol [Vitamin D2 (1250 1,250 mcg PO Q14D 07/26/20 07/26/20 Mcg = 67200 Iu)] Gabapentin 600 mg PO Q5H PRN 07/26/20 07/26/20 Insulin Detemir (Levemir) [Levemir] 35 unit SQ HS 07/26/20 07/26/20 Lidocaine-Prilocaine Cream [Emla 1 applic TOPICAL DAILY PRN 07/26/20 07/26/20 Cream 2.5%/2.5%] metFORMIN HCL [Glucophage] 1,000 mg PO AC-BID 07/26/20 07/26/20 traMADol HCL 50 mg PO DAILY 07/26/20 07/26/20 Allergies Allergy/AdvReac Type Severity Reaction Status Date / Time fluoxetine HCl [From Prozac] Allergy Itching Verified 07/26/20 18:00 gluten Allergy Abdominal Verified 07/26/20 18:00 Pain Sulfa (Sulfonamide Allergy Itching Verified 07/26/20 18:00 Antibiotics) Review of Systems ROS Statement: Those systems with pertinent positive or pertinent negative responses have been documented in the HPI. ROS Other: All systems not noted in ROS Statement are negative. Past Medical History Past Medical History: Atrial Fibrillation, Cancer, Diabetes Mellitus, Hypertension, Sleep Apnea/CPAP/BIPAP, Thyroid Disorder Additional Past Medical History / Comment(s): Heart disease, ocular neuritis, refractory anemia Last Myocardial Infarction Date:: 2018 History of Any Multi-Drug Resistant Organisms: None Reported Past Surgical History: Appendectomy, Breast Surgery, Cholecystectomy, Heart Catheterization With Stent Additional Past Surgical History / Comment(s): bilateral masectomy, heart cath follow up in 2000 Past Anesthesia/Blood Transfusion Reactions: No Reported Reaction Additional Past Anesthesia/Blood Transfusion Reaction / Comment(s): Pt has received blood without reaction. Date of Last Stent Placement:: 1997 Past Psychological History: Depression Smoking Status: Former smoker Past Alcohol Use History: None Reported Past Drug Use History: None Reported - Past Family History Father Family Medical History: Coronary Artery Disease (CAD), Hypertension, Myocardial Infarction ([place]) Additional Family Medical History / Comment(s): Father at age 72 from coronary artery disease with history of diabetes Mother Family Medical History: Coronary Artery Disease (CAD) Additional Family Medical History / Comment(s): Mother at age 72 with history of coronary artery disease and diabetes. Sister(s) Additional Family Medical History / Comment(s): Patient has 1 sister with no major medical problems. Patient does not have. His. Patient has 1 daughter with no major medical problems. No history of breast cancer. General Exam General appearance: alert, in no apparent distress, obese Head exam: Present: atraumatic, normocephalic, normal inspection Eye exam: Present: normal appearance, PERRL, EOMI. Absent: scleral icterus, conjunctival injection, periorbital swelling Neck exam: Present: normal inspection. Absent: tenderness, meningismus, lymphadenopathy Respiratory exam: Present: normal lung sounds bilaterally. Absent: respiratory distress, wheezes, rales, rhonchi, stridor Cardiovascular Exam: Present: regular rate, normal rhythm, normal heart sounds. Absent: systolic murmur, diastolic murmur, rubs, gallop, clicks GI/Abdominal exam: Present: soft, normal bowel sounds. Absent: distended, tenderness, guarding, rebound, rigid Extremities exam: Present: normal inspection, full ROM, normal capillary refill. Absent: tenderness, pedal edema, joint swelling, calf tenderness Neurological exam: Present: alert, oriented X3, CN II-XII intact Psychiatric exam: Present: normal affect, normal mood Skin exam: Present: warm, dry, intact, normal color. Absent: rash Course Vital Signs 07/26/20 07/26/20 07/26/20 15:07 16:10 17:10 Temperature 97.6 F Pulse Rate 54 L 61 61 Respiratory 19 18 18 Rate Blood Pressure 109/46 112/43 117/40 O2 Sat by Pulse 97 96 96 Oximetry 07/26/20 07/26/20 17:21 17:31 Temperature 97.5 F L 97.8 F Pulse Rate 60 62 Respiratory 18 18 Rate Blood Pressure 93/42 111/48 O2 Sat by Pulse Oximetry Medical Decision Making - Medical Decision Making 75-year-old female complaining of fatigue with refractory anemia and hemoglobin of 5.29 on a regular check Primary care today. Labs ordered. Labs show severe anemia. 2 units of red blood cells ordered. Occult blood test positive. Case discussed with Dr. Alaniz patient will be admitted. Dr. Houston was consulted, she will accept the admission. With GI consult. - Lab Data Result diagrams: 07/26/20 16:06 07/26/20 16:06 Lab Results 07/26/20 07/26/20 07/26/20 Range/Units 16:06 16:06 16:06 WBC 6.4 (3.8-10.6) k/uL RBC 1.57 L (3.80-5.40) m/uL Hgb 5.6 L* (11.4-16.0) gm/dL Hct 17.3 L* (34.0-46.0) % MCV 110.8 H (80.0-100.0) fL MCH 35.5 H (25.0-35.0) pg MCHC 32.0 (31.0-37.0) g/dL RDW 27.5 H (11.5-15.5) % Plt Count 58 L (150-450) k/uL MPV 8.6 Neutrophils % 60 % Lymphocytes % 24 % Monocytes % 9 % Eosinophils % 3 % Basophils % 0 % Neutrophils # 3.9 (1.3-7.7) k/uL Lymphocytes # 1.5 (1.0-4.8) k/uL Monocytes # 0.6 (0-1.0) k/uL Eosinophils # 0.2 (0-0.7) k/uL Basophils # 0.0 (0-0.2) k/uL Manual Slide Review Performed Polychromasia Present Hypochromasia Moderate Poikilocytosis Moderate Anisocytosis Marked Macrocytosis Marked A PT 10.1 (9.0-12.0) sec INR 0.9 (<1.2) APTT 21.2 L (22.0-30.0) sec Sodium 138 (137-145) mmol/L Potassium 5.4 H (3.5-5.1) mmol/L Chloride 105 (98-107) mmol/L Carbon Dioxide 21 L (22-30) mmol/L Anion Gap 12 mmol/L BUN 44 H (7-17) mg/dL Creatinine 1.41 H (0.52-1.04) mg/dL Est GFR (CKD-EPI)AfAm 42 (>60 ml/min/1.73 sqM) Est GFR (CKD-EPI)NonAf 36 (>60 ml/min/1.73 sqM) Glucose 124 H (74-99) mg/dL Calcium 8.8 (8.4-10.2) mg/dL Total Bilirubin 0.4 (0.2-1.3) mg/dL AST 29 (14-36) U/L ALT 29 (4-34) U/L Alkaline Phosphatase 88 (38-126) U/L Total Protein 5.9 L (6.3-8.2) g/dL Albumin 3.5 (3.5-5.0) g/dL Stool Occult Blood (Negative) Blood Type Blood Type Recheck Bld Type Recheck Status Antibody Screen Crossmatch Spec Expiration Date 07/26/20 07/26/20 Range/Units 16:06 17:50 WBC (3.8-10.6) k/uL RBC (3.80-5.40) m/uL Hgb (11.4-16.0) gm/dL Hct (34.0-46.0) % MCV (80.0-100.0) fL MCH (25.0-35.0) pg MCHC (31.0-37.0) g/dL RDW (11.5-15.5) % Plt Count (150-450) k/uL MPV Neutrophils % % Lymphocytes % % Monocytes % % Eosinophils % % Basophils % % Neutrophils # (1.3-7.7) k/uL Lymphocytes # (1.0-4.8) k/uL Monocytes # (0-1.0) k/uL Eosinophils # (0-0.7) k/uL Basophils # (0-0.2) k/uL Manual Slide Review Polychromasia Hypochromasia Poikilocytosis Anisocytosis Macrocytosis PT (9.0-12.0) sec INR (<1.2) APTT (22.0-30.0) sec Sodium (137-145) mmol/L Potassium (3.5-5.1) mmol/L Chloride (98-107) mmol/L Carbon Dioxide (22-30) mmol/L Anion Gap mmol/L BUN (7-17) mg/dL Creatinine (0.52-1.04) mg/dL Est GFR (CKD-EPI)AfAm (>60 ml/min/1.73 sqM) Est GFR (CKD-EPI)NonAf (>60 ml/min/1.73 sqM) Glucose (74-99) mg/dL Calcium (8.4-10.2) mg/dL Total Bilirubin (0.2-1.3) mg/dL AST (14-36) U/L ALT (4-34) U/L Alkaline Phosphatase (38-126) U/L Total Protein (6.3-8.2) g/dL Albumin (3.5-5.0) g/dL Stool Occult Blood Positive H (Negative) Blood Type A Positive Blood Type Recheck A Pos Bld Type Recheck Status No Antibody Screen NEGATIVE Crossmatch See Detail Spec Expiration Date 07/29/20202305 Disposition Clinical Impression: Anemia, Generalized weakness, GI bleed Disposition: ADMITTED IP TO THIS [facility] Condition: Stable Is patient prescribed a controlled substance at d/c from ED?: No Referrals: Jaxon Palacios MD [Primary Care Provider] - 1-2 days Time of Disposition: 18:30
[2020-07-26 16:30] LABS: Anisocytosis Marked; Basophils % (A) 0 %; Eosinophils # (A) 0.2 k/uL (0-0.7); Eosinophils % (A) 3 %; Hypochromasia Moderate; Lymphocytes # (A) 1.5 k/uL (1.0-4.8); Lymphocytes % (A) 24 %; MCH 35.5 pg (25.0-35.0); MCV 110.8 fL (80.0-100.0); Macrocytosis Marked; Mean Platelet Volume 8.6; Monocytes # (A) 0.6 k/uL (0-1.0); Monocytes % (A) 9 %; Neutrophils # (A) 3.9 k/uL (1.3-7.7); Neutrophils % (A) 60 %; Poikilocytosis Moderate; RBC 1.57 m/uL (3.80-5.40); WBC 6.4 k/uL (3.8-10.6)
[2020-07-26 16:35] LABS: INR 0.9 (<1.2); Prothrombin Time 10.1 sec (9.0-12.0)
[2020-07-26 16:36] LABS: HGB 5.6 gm/dL (11.4-16.0)
[2020-07-26 16:37] LABS: HCT 17.3 % (34.0-46.0); RDW 27.5 % (11.5-15.5)
[2020-07-26 16:40] LABS: Albumin 3.5 g/dL (3.5-5.0); Calcium 8.8 mg/dL (8.4-10.2); Potassium 5.4 mmol/L (3.5-5.1); Total Bilirubin 0.4 mg/dL (0.2-1.3); Total Protein 5.9 g/dL (6.3-8.2)
[2020-07-26 16:48] LABS: Partial Thromboplastin Time 21.2 sec (22.0-30.0)
[2020-07-26 17:01] LABS: Platelet Count 58 k/uL (150-450); Polychromasia Present
[2020-07-26] MEDS ORDERED: NALOXONE 0.4 MG/ML 1 ML VIAL IV PRN (18:28)
[2020-07-26] MEDS: SODIUM CHLORIDE 0.9% 1,000 ML IV SCH (19:52)
[2020-07-26 20:47] LABS: Glucose,Whole Blood 77 mg/dL (75-99)
[2020-07-26] MEDS ORDERED: ALBUTEROL NEBULIZED 2.5 MG/3 ML INHALATION PRN (21:30)
[2020-07-26] MEDS ORDERED: LIDOCAINE-PRILOCAINE 2.5-2.5% CREAM 5 GM TUBE TOPICAL PRN (21:30)
[2020-07-27 01:17] LABS: Anisocytosis Moderate; HCT 24.2 % (34.0-46.0); Macrocytosis Marked; Mean Platelet Volume 8.1; Poikilocytosis Slight; RBC 2.42 m/uL (3.80-5.40); RDW 23.6 % (11.5-15.5)
[2020-07-27 01:27] LABS: Platelet Count 83 k/uL (150-450)
[2020-07-27 01:28] LABS: HGB 8.5 gm/dL (11.4-16.0); MCV 100.2 fL (80.0-100.0)
[2020-07-27] MEDS: LEVOTHYROXINE 75 MCG TAB PO SCH (05:34)
[2020-07-27] MEDS: LEVOTHYROXINE 100 MCG TAB PO SCH (05:34)
[2020-07-27] MEDS: INSULIN ASPART (NovoLOG) 100 UNIT/ML VIAL SQ SCH ×4 (06:31→20:21)
[2020-07-27] MEDS: INSULIN DETEMIR (LEVEMIR) 100 UNIT/ML SYR SQ SCH ×2 (06:34→20:21)
[2020-07-27] MEDS: SODIUM CHLORIDE 0.9% 1,000 ML IV SCH ×2 (06:40→20:22)
[2020-07-27 06:41] LABS: Glucose,Whole Blood 84 mg/dL (75-99)
[2020-07-27] MEDS ORDERED: metFORMIN 500 MG TAB PO SCH (07:30)
[2020-07-27] MEDS: PANTOPRAZOLE 40 MG/10 ML VIAL IV SCH (08:03)
[2020-07-27] MEDS: FUROSEMIDE 40 MG TAB PO SCH (08:03)
[2020-07-27] MEDS: CYANOCOBALAMIN 500 MCG TAB PO SCH (08:03)
[2020-07-27] MEDS: ATORVASTATIN 80 MG TAB PO SCH (08:03)
[2020-07-27] MEDS: METOPROLOL TARTRATE 50 MG TAB PO SCH ×2 (08:03→20:20)
[2020-07-27] MEDS: AMIODARONE 200 MG TAB PO SCH ×2 (08:03→20:20)
[2020-07-27] MEDS: traMADol 50 MG TAB PO SCH (08:03)
[2020-07-27] MEDS: SPIRONOLACTONE 25 MG TAB PO SCH (08:03)
[2020-07-27] MEDS ORDERED: SODIUM CHLORIDE 0.65% NASAL SPRAY 44 ML BTL NASAL PRN (08:08)
[2020-07-27 08:21] LABS: Anisocytosis Moderate; HCT 23.8 % (34.0-46.0); HGB 8.3 gm/dL (11.4-16.0); MCHC 34.9 g/dL (31.0-37.0); MCV 100.4 fL (80.0-100.0); Macrocytosis Marked; Mean Platelet Volume 7.1; Poikilocytosis Slight; RBC 2.37 m/uL (3.80-5.40); RDW 23.7 % (11.5-15.5); WBC 3.2 k/uL (3.8-10.6)
[2020-07-27 08:34] LABS: Platelet Count 42 k/uL (150-450)
[2020-07-27 08:38] LABS: Calcium 8.7 mg/dL (8.4-10.2); Potassium 4.6 mmol/L (3.5-5.1)
[2020-07-27] MEDS: VENLAFAXINE HCL ER 150 MG CAP PO SCH (09:50)
--- NOTE | 2020-07-27 10:40 | P.HPIM ---
History of Present Illness H&P Date: 07/27/20 Chief Complaint: Weakness, GI bleed History of present illness This is a 75-year-old patient of Dr. Palacios was sent to the emergency room related to low hemoglobin. She was recently seen by her primary care physician and found to have a hemoglobin of 5.29. Patient does have refractory anemia as part of her medical history. Patient has frequent transfusions with Dr. Siddiqui who follows her for hematology and Dr. Pena for GI bleed. Patient is complaining of weakness and fatigue. She is not having any palpitations dizziness or shortness of breath. Patient denies any diarrhea or constipation vomiting. No dark bloody stools or burgundy stools noted. Patient's past medical history significant for atrial fibrillation, breast cancer, diabetes mellitus, hypertension, GI bleed, chronic kidney disease stage III, hypothyroidism, depression, sleep apnea with a CPAP machine. At this time patient is found resting comfortably in bed without any complaints. Patient states that she does not have any dizziness or lightheadedness. No constipation or diarrhea. Patient has not had any recent falls. Her last scope was approximate 1 year ago. Patient states that she sees Dr. Siddiqui routinely however due to previously having cold that she had not been in for about a month. WBC 3.2, hemoglobin 8.3, testing 4.6, BUN 33, creatinine 1.19, oh, blood stool positive,covid Negative. Patient is afebrile, heart rate 80, respirations 16, blood pressure 146/61, pulse ox 93% on room air. Review Of Systems: Constitutional: No fever, no chills, no night sweats. No weight change. Reports weakness and fatigue no lethargy. No daytime sleepiness. EENT: No headache. No blurred vision or double vision, no loss of vision. No loss of Hearing, no ringing in the ears, no dizziness. No nasal drainage or congestion. No epistaxis. No sore throat. Lungs: No shortness of breath, cough, no sputum production. No wheezing. Cardiovascular: No chest pain, no lower extremity edema. No palpitations. No paroxysmal nocturnal dyspnea. No orthopnea. Reports lightheadedness and dizziness. No syncopal episodes. Abdominal: no abdominal discomfort. No nausea, vomiting. no diarrhea. No constipation. No bloody or tarry stools. no loss of appetite. Genitourinary: No dysuria, increased frequency, urgency. No urinary retention. Musculoskeletal: No myalgias. No muscle weakness, no gait dysfunction, no frequent falls. No back pain. No neck pain. Integumentary: No wounds, no lesions. No rash or pruritus. No unusual bruising. No change in hair or nails. Neurologic: No aphasia. No facial droop. No change in mentation. No head injury. No headache. No paralysis. No paresthesia. Psychiatric: Reports depression. Reports anxiety. No mood swings. Endocrine: No abnormal blood sugars. No weight change. No excessive sweating or thirst. Social history: Previous smoker of 4 packs per day for 20 years and quit approximate 20 years ago. Denies any marijuana versus drug use. No alcohol use. She is at home with her daughter. Utilizes a CPAP and nebulizer. Patient is . Family history: Father at 72 from coronary artery disease with history of diabetes, mother at the age of 72 from coronary artery disease with history of diabetes and breast cancer, sister with no major medical issues other than hypertension, one daughter who has hypertension. Physical examination General Appearance: Alert, cooperative, no distress, appears stated age. Neck HEENT: Supple, no lymphadenopathy, no thyroid enlargement, no carotid br uits. Lungs: Clear to auscultation without crackles or wheezes no rhonchi, no deformity. Chest Wall: Chest wall normal expansion with deep inspiration no tenderness and no deformity was found on exam, no costochondral pain or discomfort. Heart: Regular rate and rhythm, S1, S2 normal, no murmur, rub or gallop. Back: Symmetric, no curvature, ROM normal, no CVA tenderness. Abdomen: Soft, non-tender, no rebound or rigidity, no hepatosplenomegaly. Extremities: Extremities normal, atraumatic, no cyanosis or edema. Pulses: 2+ and symmetric. Skin: Skin color, texture, tugor normal, no rashes or lesions. Neurologic: Alert oriented x3 cranial nerves II through XII intact, no motor deficit, no abnormal balance or gait Assessment and plan 1. Severe anemia. Status post blood transfusion 2. Patient has chronic anemia. GI consult and hematology consult. Review iron. Hemiglobin 5.6 upon arrival repeat 8.3 post 2 unit transfusion. repeat hemoglobin again at 6 PM today. 2. GI bleed. As noted above. Palpable mass to the right mid quadrant noted CT of the abdomen and pelvis with contrast ordered 3. Hyperkalemia. Potassium 5. 4 repeat 4.6, continue to monitor potassium. 4. Chronic kidney disease stage III. Avoid neurotoxins. Monitor renal function daily. Continue lisinopril, Lasix and Aldactone 5. Weakness. Consult PTOT consideration for subacute rehab 6. Diabetes mellitus type 2. Accu-Cheks before meals and at bedtime, NovoLog sliding scale, Levemir 35 units daily at bedtime, 40 units every before meals breakfast. Hold metformin at this time 7. Hypertension. Metoprolol 50 mg by mouth twice a day, lisinopril 5 mg by mouth at bedtime, Lasix 40 mg by mouth daily, 20 mg at 1600. Aldactone 25 mg by mouth daily 8. Atrial fibrillation. Continue amiodarone 200 mg by mouth twice a day 9. Hyperlipidemia. Atorvastatin 80 mg by mouth at bedtime 10. Hypothyroidism. Levothyroxine 275 MCG's by mouth daily 11. Fibromyalgia, stable. Gabapentin 600 mg by mouth every 5 hours, continue Ultram 50 mg by mouth daily 12. History of breast cancer status post bilateral mastectomy. 13. Generalized anxiety disorder recurrent depression. Continue Effexor 75 mg by mouth at bedtime, 150 g by mouth daily 14. Obstructive sleep apnea. Continue CPAP. 15. GERD and GI prophylaxis. Protonix. 16. DVT prophylaxis. SCDs. CODE STATUS: No code Impression and plan of care have been directed as dictated by the signing physician. Sepideh King nurse practitioner acting as scribe for signing physician. Past Medical History Past Medical History: Atrial Fibrillation, Cancer, Diabetes Mellitus, Hypertension, Sleep Apnea/CPAP/BIPAP, Thyroid Disorder Additional Past Medical History / Comment(s): Heart disease, ocular neuritis, refractory anemia Last Myocardial Infarction Date:: 2018 History of Any Multi-Drug Resistant Organisms: None Reported Past Surgical History: Appendectomy, Breast Surgery, Cholecystectomy, Heart Catheterization With Stent Additional Past Surgical History / Comment(s): bilateral masectomy, heart cath follow up in 2000 Past Anesthesia/Blood Transfusion Reactions: No Reported Reaction Additional Past Anesthesia/Blood Transfusion Reaction / Comment(s): Pt has received blood without reaction. Date of Last Stent Placement:: 1997 Past Psychological History: Depression Additional Psychological History / Comment(s): Pt has her silvia and son in law living with her. She ambulates with a rollator. Her silvia is her caregiver. She no longer drives, her silvia takes her to appts. She has a cpap, glucometer. Smoking Status: Former smoker Past Alcohol Use History: None Reported Additional Past Alcohol Use History / Comment(s): Patient was a smoker of 4 packs per day for 20 years and quit approximately 20 years ago. She denies any marijuana, illicit drug use. No alcohol use. She was at home with her daughter. She does have a CPAP and nebulizer. Patient is . Past Drug Use History: None Reported - Past Family History Father Family Medical History: Coronary Artery Disease (CAD), Hypertension, Myocardial Infarction ([place]) Additional Family Medical History / Comment(s): Father at age 72 from coronary artery disease with history of diabetes Mother Family Medical History: Coronary Artery Disease (CAD) Additional Family Medical History / Comment(s): Mother at age 72 with history of coronary artery disease and diabetes. Sister(s) Additional Family Medical History / Comment(s): Patient has 1 sister with no major medical problems. Patient does not have. His. Patient has 1 daughter with no major medical problems. No history of breast cancer. Medications and Allergies Home Medications Medication Instructions Recorded Confirmed Type Insulin Detemir (Levemir) [Levemir] 40 unit SQ AC-BRKFST 01/01/14 07/26/20 History Spironolactone [Aldactone] 25 mg PO DAILY 01/01/14 07/26/20 History Levothyroxine Sodium [Synthroid] 75 mcg PO DAILY 01/20/19 07/26/20 History Levothyroxine Sodium [Synthroid] 200 mcg PO DAILY 01/20/19 07/26/20 History Metoprolol Tartrate [Lopressor] 50 mg PO BID 01/20/19 07/26/20 History Venlafaxine HCl [Effexor XR] 75 mg PO HS 01/20/19 07/26/20 History Venlafaxine HCl [Effexor XR] 150 mg PO DAILY 01/20/19 07/26/20 History lisinopriL [Zestril] 5 mg PO HS 01/20/19 07/26/20 History Amiodarone [Cordarone] 200 mg PO BID 05/03/19 07/26/20 History Cyanocobalamin [Vitamin B-12] 500 mcg PO DAILY 05/03/19 07/26/20 History Furosemide [Lasix] 20 mg PO DAILY@1600 12/10/19 07/26/20 History Furosemide [Lasix] 40 mg PO DAILY 12/10/19 07/26/20 History INSULIN LISPRO (HumaLOG) [humaLOG] See Protocol SQ AC-TID 12/10/19 07/26/20 History Acetaminophen-Codeine 300-30mg 1 tab PO HS 07/26/20 07/26/20 History [Tylenol w/codeine #3] Albuterol Inhaler [Ventolin Hfa 2 puff INHALATION RT-Q6H PRN 07/26/20 07/26/20 History Inhaler] Aspirin EC [Ecotrin] 325 mg PO DAILY 07/26/20 07/26/20 History Atorvastatin [Lipitor] 80 mg PO DAILY 07/26/20 07/26/20 History Ergocalciferol [Vitamin D2 (1250 1,250 mcg PO Q14D 07/26/20 07/26/20 History Mcg = 06521 Iu)] Gabapentin 600 mg PO Q5H PRN 07/26/20 07/26/20 History Insulin Detemir (Levemir) [Levemir] 35 unit SQ HS 07/26/20 07/26/20 History Lidocaine-Prilocaine Cream [Emla 1 applic TOPICAL DAILY PRN 07/26/20 07/26/20 History Cream 2.5%/2.5%] metFORMIN HCL [Glucophage] 1,000 mg PO AC-BID 07/26/20 07/26/20 History traMADol HCL 50 mg PO DAILY 07/26/20 07/26/20 History Allergies Allergy/AdvReac Type Severity Reaction Status Date / Time fluoxetine HCl [From Prozac] Allergy Itching Verified 07/26/20 18:00 gluten Allergy Abdominal Verified 07/26/20 18:00 Pain Sulfa (Sulfonamide Allergy Itching Verified 07/26/20 18:00 Antibiotics) Physical Exam Vitals: Vital Signs Temp Pulse Pulse Resp BP BP Pulse Ox 07/27/20 07:48 98.1 F 80 16 146/61 07/27/20 04:00 98.0 F 75 19 150/70 95 07/27/20 01:46 62 17 07/27/20 00:00 98.1 F 62 17 142/75 07/26/20 20:25 97.9 F 58 L 17 130/69 96 07/26/20 20:15 97.8 F 61 18 123/67 96 07/26/20 20:00 97.9 F 58 L 17 130/69 07/26/20 19:55 61 18 123/67 96 07/26/20 19:45 61 18 133/59 96 07/26/20 19:44 97.8 F 63 16 154/63 07/26/20 19:43 97.8 F 62 18 153/61 07/26/20 19:09 98.1 F 62 18 122/91 99 07/26/20 18:46 97.9 F 58 L 17 130/69 07/26/20 18:01 61 18 125/83 07/26/20 17:31 97.8 F 62 18 111/48 07/26/20 17:21 97.5 F L 60 18 93/42 07/26/20 17:10 61 18 117/40 96 07/26/20 16:10 61 18 112/43 96 07/26/20 15:07 97.6 F 54 L 19 109/46 97 Intake and Output 07/26/20 07/27/20 07/27/20 22:59 06:59 14:59 Intake Total 310 310 Balance 310 310 Intake: Blood Product 310 310 Rc As-1 Unit 0 310 [id number] Rc As-1 Unit 310 [id number] Other: Voiding Method Toilet Toilet # Voids 1 3 Weight 118.388 kg 118.5 kg Results CBC & Chem 7: 07/27/20 07:25 07/27/20 07:25 Labs: Abnormal Lab Results - Last 24 Hours (Table) 07/26/20 07/26/20 07/26/20 Range/Units 16:06 16:06 16:06 WBC (3.8-10.6) k/uL RBC 1.57 L (3.80-5.40) m/uL Hgb 5.6 L* (11.4-16.0) gm/dL Hct 17.3 L* (34.0-46.0) % MCV 110.8 H (80.0-100.0) fL MCH 35.5 H (25.0-35.0) pg RDW 27.5 H (11.5-15.5) % Plt Count 58 L (150-450) k/uL Macrocytosis Marked A APTT 21.2 L (22.0-30.0) sec Potassium 5.4 H (3.5-5.1) mmol/L Chloride (98-107) mmol/L Carbon Dioxide 21 L (22-30) mmol/L BUN 44 H (7-17) mg/dL Creatinine 1.41 H (0.52-1.04) mg/dL Glucose 124 H (74-99) mg/dL Total Protein 5.9 L (6.3-8.2) g/dL Stool Occult Blood (Negative) Crossmatch 07/26/20 07/26/20 07/27/20 Range/Units 16:06 17:50 00:23 WBC (3.8-10.6) k/uL RBC 2.42 L (3.80-5.40) m/uL Hgb 8.5 L D (11.4-16.0) gm/dL Hct 24.2 L (34.0-46.0) % MCV 100.2 H D (80.0-100.0) fL MCH (25.0-35.0) pg RDW 23.6 H (11.5-15.5) % Plt Count 83 L (150-450) k/uL Macrocytosis Marked A APTT (22.0-30.0) sec Potassium (3.5-5.1) mmol/L Chloride (98-107) mmol/L Carbon Dioxide (22-30) mmol/L BUN (7-17) mg/dL Creatinine (0.52-1.04) mg/dL Glucose (74-99) mg/dL Total Protein (6.3-8.2) g/dL Stool Occult Blood Positive H (Negative) Crossmatch See Detail 07/27/20 07/27/20 Range/Units 07:25 07:25 WBC 3.2 L (3.8-10.6) k/uL RBC 2.37 L (3.80-5.40) m/uL Hgb 8.3 L (11.4-16.0) gm/dL Hct 23.8 L (34.0-46.0) % MCV 100.4 H (80.0-100.0) fL MCH (25.0-35.0) pg RDW 23.7 H (11.5-15.5) % Plt Count 42 L (150-450) k/uL Macrocytosis Marked A APTT (22.0-30.0) sec Potassium (3.5-5.1) mmol/L Chloride 108 H (98-107) mmol/L Carbon Dioxide (22-30) mmol/L BUN 33 H (7-17) mg/dL Creatinine 1.19 H (0.52-1.04) mg/dL Glucose 73 L (74-99) mg/dL Total Protein (6.3-8.2) g/dL Stool Occult Blood (Negative) Crossmatch Thrombosis Risk Factor Assmnt - Choose All That Apply Any of the Below Risk Factors Present?: Yes Each Factor Represents 1 point: Obesity (BMI >25) Other Risk Factors: Yes Each Risk Factor Represents 3 Points: Age 75 years or older Other congenital or acquired thrombophilia - If yes, enter type in comment: No Thrombosis Risk Factor Assessment Total Risk Factor Score: 4 Thrombosis Risk Factor Assessment Level: Moderate Risk
[2020-07-27] MEDS: IOPAMIDOL CONTRAST (ORAL USE) VIAL PO PRN ×2 (10:46→11:42)
[2020-07-27 11:46] LABS: Glucose,Whole Blood 91 mg/dL (75-99)
--- NOTE | 2020-07-27 12:26 | CONS ---
CONSULTATION DATE OF SERVICE: 07/27/2020 REQUESTING PHYSICIAN: Dr. Jaxon Palacios. REASON FOR CONSULTATION: Anemia and Hemoccult-positive stool. HISTORY OF PRESENT ILLNESS: The patient is a 75-year-old pleasant white female admitted to the hospital with fatigue, weakness, shortness of breath and low hemoglobin. She was noted to have a hemoglobin of 5.2 g/dL and hence was advised by her PCP to go to the emergency room. She received 2 units of PRBC transfusion last night. In the ER, was noted to have Hemoccult-positive stool and hence we are consulted in regard to this issue. However, the patient denies any abdominal pain. No nausea, vomiting. No rectal bleeding or melena. She has been having some tiredness and fatigue for the last few days duration. The patient was diagnosed with refractory anemia and follows with Dr. Siddiqui. She underwent a bone marrow biopsy a year ago and results are not available at the time of this dictation, but according to the patient, she was told that she has refractory anemia and she has been requiring PRBC transfusions almost every 2-3 weeks for the last one year. She did have extensive GI evaluation in the past prior to the diagnosis of refractory anemia. She had an EGD and colonoscopy on June 11, 2019 by ar that revealed a small cecal polyp as well as ascending colon polyps that were removed by snare polypectomy. An upper endoscopy was within normal limits. During one of her hospitalizations in October of 2019, she did have a small bowel capsule endoscopy by Dr. Baker that showed no active bleeding noted in the small bowel. PAST MEDICAL HISTORY: Significant for hypertension, hyperlipidemia, refractory anemia, COPD, diabetes mellitus, hypothyroidism, degenerative joint disease, atrial fibrillation, sleep apnea. PAST SURGICAL HISTORY: Appendectomy, breast surgery, cholecystectomy, cardiac catheterization with stent placement, bilateral mastectomy. MEDICATIONS: Medications at home include Effexor, Zestril, Cordarone, vitamin B12, Lasix, Humalog Tylenol with codeine, albuterol, Ecotrin, Lipitor, vitamin D3, gabapentin, insulin, Levemir, metformin, tramadol, levothyroxine, Aldactone, Lopressor. ALLERGIES: PROZAC, GLUTEN, AND SULFA. SOCIAL HISTORY: No smoking. No alcohol use. FAMILY HISTORY: Father had coronary artery disease, hypertension, and [place]. Mother had coronary artery disease. REVIEW OF SYSTEMS: CARDIOPULMONARY: No chest pain. She does have some shortness of breath. GENITOURINARY: No dysuria or hematuria. MUSCULOSKELETAL: Unremarkable. SKIN: Unremarkable. ENDOCRINE: Unremarkable. PSYCHIATRIC: Unremarkable. NEUROLOGY: Unremarkable. HEMATOLOGY: Refractory anemia. Follows with Dr. Siddiqui. HEENT/VISION: Unremarkable. CONSTITUTIONAL: Fatigue and weakness but no fever, chills or night sweats. No recent weight loss. PHYSICAL EXAMINATION: GENERAL: She appears comfortable. VITAL SIGNS: Stable. Blood pressure is 146/61, pulse 80, temperature 98.1. HEENT: Examination unremarkable. Conjunctivae are pink. Sclerae anicteric. Oral cavity no lesions. NECK: No JVD or lymph node enlargement. CHEST: Clear to auscultation. HEART: Regular rate and rhythm. ABDOMEN: Soft, it was obese. Bowel sounds are positive. No organomegaly. EXTREMITIES: No pedal edema. SKIN: No rashes. NEURO: She is alert and oriented x3. No focal deficits. LABS: Labs done at the time of admission to the hospital WBC was 4, hemoglobin 8.5, and platelets 83,000. Yesterday hemoglobin was 5.6 g/dL, BUN 44, creatinine 1.41. Stool Hemoccult was positive. IMPRESSION: 1. Macrocytic anemia and Hemoccult-positive stool. The patient clinically has no active bleeding. She has been diagnosed with refractory anemia and follows with Dr. Siddiqui on an outpatient basis and has been transfusion dependent for the last one year requiring PRBC transfusion almost once every 2-3 weeks. She presented to the hospital yesterday with a hemoglobin of 5.6 requiring 2 units of PRBC transfusion and repeat hemoglobin is 8.3 g/dL. Clinically no active bleeding. She did have an EGD and colonoscopy in May of 2019 that was unremarkable other than small colon polyps and the small bowel capsule endoscopy in September of in October of 2019 was also unremarkable. 2. History of diabetes mellitus. 3. History of hypertension. 4. History of coronary artery disease status post stents in the past. Presently maintained on aspirin. 5. History of hypothyroidism. RECOMMENDATIONS: 1. Agree with PRBC transfusion. 2. No need for any repeat endoscopic intervention at the present time. 3. Start her on a regular diet. 4. Await recommendations from Dr. Siddiqui. 5. We will follow with you closely. Thank you for this consultation. MMODL / IJN: [id number] /
--- NOTE | 2020-07-27 13:08 | P.CONS ---
History of Present Illness - Reason for Consult Consult date: 07/27/20 Severe anemia, pancytopenia, MDS - History of Present Illness The patient is a 75-year-old white female well known to myself. She was initially seen for a history of DVT and Breast cancer. She was diagnosed with Right sided breast cancer in 2008 and underwent a bilateral mastectomy with rt axillary dissection, which was done in 12/05. She was started on Arimidex. She did not follow since mid 2010 onwards, and ran out of Arimidex in the summer of 2011. She called the office in 05/11 and restablished care. She also started back on Arimidex. She did not keep her appt in 12/09. She ran out of Arimidex about 2 weeks prior to her appt here on 03/31/13. She resumed it after that visit, and reported good compliance st her visit here on 11/04/13. 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 She reported multiple side effects, and was changed to Coumadin, which she tolerated well. In the interim, she was diagnosed with diastolic CHF in the fall of 2015, and had cataract surgery in and 01/11. She had labs and PET done to check for mets, which were negative. She got her doppler done in 10/12, showing some residual clot with recanalization. She stopped coumadin in late 09/12. She was advised to start back on Arimidex to com plete 10 yrs, but did not do so as she could not afford it. Breast Next Testing in 09/12 was negative. She resumed Arimidex in 01/12. She presented to [facility] in 12/16 with hemoglobin of 5.4. She was previously seen in May of this year for the same and underwent Full GI work-up with EGD with biopsy and colonoscopy with snare polypectomy. Upper endoscopy was within normal limits. Colonoscopy revealed cecal polyp and a 5 mm ascending colon polyp both of which were removed. also, mention of scattered sigmoidal diverticulosis. The patient was treated with aggressive iron supplementation, including oral and parenteral. However her hemoglobin remained low despite normalization of iron stores. She therefore underwent bone marrow aspiration biopsy, which revealed myelodysplasia, consistent with refractory anemia. There were no excess blasts. Patient was initially treated with erythropoietin supplementation, but didn't respond to the same. She was then switched over to Luspatercept, but has not shown much response so far either. She remains oxygen dependent and is supposed to be on weekly CBCs in the office with occlusion for hemoglobin less than 7. She did not come to the office for the past 4 weeks, as her daughter, who drives her, had tested positive for coronavirus. The patient was seen in the office for her regular visit yesterday, and was found to have hemoglobin of 5.. 2 units of PRBC were ordered, but the patient wanted to go to the emergency room as she was unable to find a ride for herself to facilitate transfusion after hours. The patient's if 2 units of PRBC with improvement in hemoglobin into the 8 range. She denies any obvious bleeding. Stool occult blood was apparently positive. Review of Systems Constitutional: Reports fatigue, Reports weakness Eyes: denies blurred vision, denies pain Ears: deny: decreased hearing, ear discharge, earache, tinnitus Ears, nose, mouth and throat: Denies headache, Denies sore throat Breasts: absent: as per HPI Cardiovascular: Reports shortness of breath Respiratory: Reports dyspnea Gastrointestinal: Denies abdominal pain, Denies diarrhea, Denies nausea, Denies vomiting Genitourinary: Denies dysuria, Denies hematuria Menstruation: Reports postmenopausal Musculoskeletal: Reports muscle weakness Integumentary: Denies pruritus, Denies rash Neurological: Reports weakness Psychiatric: Reports difficulty concentrating Endocrine: Reports fatigue Hematologic/Lymphatic: Reports as per HPI Past Medical History Past Medical History: Atrial Fibrillation, Cancer, Diabetes Mellitus, Hypertension, Sleep Apnea/CPAP/BIPAP, Thyroid Disorder Additional Past Medical History / Comment(s): Heart disease, ocular neuritis, refractory anemia Last Myocardial Infarction Date:: 2018 History of Any Multi-Drug Resistant Organisms: None Reported Past Surgical History: Appendectomy, Breast Surgery, Cholecystectomy, Heart Catheterization With Stent Additional Past Surgical History / Comment(s): bilateral masectomy, heart cath follow up in 2000 Past Anesthesia/Blood Transfusion Reactions: No Reported Reaction Additional Past Anesthesia/Blood Transfusion Reaction / Comm: Pt has received bl ood without reaction. Date of Last Stent Placement:: 1997 Past Psychological History: Depression Additional Psychological History / Comment(s): Pt has her silvia and son in law living with her. She ambulates with a rollator. Her silvia is her caregiver. She no longer drives, her silvia takes her to appts. She has a cpap, glucometer. Smoking Status: Former smoker Past Alcohol Use History: None Reported Additional Past Alcohol Use History / Comment(s): Patient was a smoker of 4 packs per day for 20 years and quit approximately 20 years ago. She denies any marijuana, illicit drug use. No alcohol use. She was at home with her daughter. She does have a CPAP and nebulizer. Patient is . Past Drug Use History: None Reported - Past Family History Father Family Medical History: Coronary Artery Disease (CAD), Hypertension, Myocardial Infarction (SC) Additional Family Medical History / Comment(s): Father at age 72 from coronary artery disease with history of diabetes Mother Family Medical History: Coronary Artery Disease (CAD) Additional Family Medical History / Comment(s): Mother at age 72 with history of coronary artery disease and diabetes. Sister(s) Additional Family Medical History / Comment(s): Patient has 1 sister with no ma ángel medical problems. Patient does not have. His. Patient has 1 daughter with no major medical problems. No history of breast cancer. Medications and Allergies Home Medications Medication Instructions Recorded Confirmed Type Insulin Detemir (Levemir) [Levemir] 40 unit SQ AC-BRKFST 01/01/14 07/26/20 History Spironolactone [Aldactone] 25 mg PO DAILY 01/01/14 07/26/20 History Levothyroxine Sodium [Synthroid] 75 mcg PO DAILY 01/20/19 07/26/20 History Levothyroxine Sodium [Synthroid] 200 mcg PO DAILY 01/20/19 07/26/20 History Metoprolol Tartrate [Lopressor] 50 mg PO BID 01/20/19 07/26/20 History Venlafaxine HCl [Effexor XR] 75 mg PO HS 01/20/19 07/26/20 History Venlafaxine HCl [Effexor XR] 150 mg PO DAILY 01/20/19 07/26/20 History lisinopriL [Zestril] 5 mg PO HS 01/20/19 07/26/20 History Amiodarone [Cordarone] 200 mg PO BID 05/03/19 07/26/20 History Cyanocobalamin [Vitamin B-12] 500 mcg PO DAILY 05/03/19 07/26/20 History Furosemide [Lasix] 20 mg PO DAILY@1600 12/10/19 07/26/20 History Furosemide [Lasix] 40 mg PO DAILY 12/10/19 07/26/20 History INSULIN LISPRO (HumaLOG) [humaLOG] See Protocol SQ AC-TID 12/10/19 07/26/20 History Acetaminophen-Codeine 300-30mg 1 tab PO HS 07/26/20 07/26/20 History [Tylenol w/codeine #3] Albuterol Inhaler [Ventolin Hfa 2 puff INHALATION RT-Q6H PRN 07/26/20 07/26/20 History Inhaler] Aspirin EC [Ecotrin] 325 mg PO DAILY 07/26/20 07/26/20 History Atorvastatin [Lipitor] 80 mg PO DAILY 07/26/20 07/26/20 History Ergocalciferol [Vitamin D2 (1250 1,250 mcg PO Q14D 07/26/20 07/26/20 History Mcg = [id number] Iu)] Gabapentin 600 mg PO Q5H PRN 07/26/20 07/26/20 History Insulin Detemir (Levemir) [Levemir] 35 unit SQ HS 07/26/20 07/26/20 History Lidocaine-Prilocaine Cream [Emla 1 applic TOPICAL DAILY PRN 07/26/20 07/26/20 History Cream 2.5%/2.5%] metFORMIN HCL [Glucophage] 1,000 mg PO AC-BID 07/26/20 07/26/20 History traMADol HCL 50 mg PO DAILY 07/26/20 07/26/20 History Allergies Allergy/AdvReac Type Severity Reaction Status Date / Time fluoxetine HCl [From Prozac] Allergy Itching Verified 07/26/20 18:00 gluten Allergy Abdominal Verified 07/26/20 18:00 Pain Sulfa (Sulfonamide Allergy Itching Verified 07/26/20 18:00 Antibiotics) Physical Exam Vitals: Vital Signs Temp Pulse Pulse Resp BP BP Pulse Ox 07/27/20 10:56 97.6 F 67 16 173/70 07/27/20 07:48 98.1 F 80 16 146/61 07/27/20 04:00 98.0 F 75 19 150/70 95 07/27/20 01:46 62 17 07/27/20 00:00 98.1 F 62 17 142/75 07/26/20 20:25 97.9 F 58 L 17 130/69 96 07/26/20 20:15 97.8 F 61 18 123/67 96 07/26/20 20:00 97.9 F 58 L 17 130/69 07/26/20 19:55 61 18 123/67 96 07/26/20 19:45 61 18 133/59 96 07/26/20 19:44 97.8 F 63 16 154/63 07/26/20 19:43 97.8 F 62 18 153/61 07/26/20 19:09 98.1 F 62 18 122/91 99 07/26/20 18:46 97.9 F 58 L 17 130/69 07/26/20 18:01 61 18 125/83 07/26/20 17:31 97.8 F 62 18 111/48 07/26/20 17:21 97.5 F L 60 18 93/42 07/26/20 17:10 61 18 117/40 96 07/26/20 16:10 61 18 112/43 96 07/26/20 15:07 97.6 F 54 L 19 109/46 97 Intake and Output 07/26/20 07/27/20 07/27/20 22:59 06:59 14:59 Intake Total 310 310 Balance 310 310 Intake: Blood Product 310 310 Rc As-1 Unit 0 310 [id number] Rc As-1 Unit 310 [id number] Other: Voiding Method Toilet Toilet # Voids 1 3 2 Weight 118.388 kg 118.5 kg - Constitutional General appearance: no acute distress - EENT Eyes: EOMI, PERRLA ENT: hearing grossly normal, normal oropharynx - Neck Neck: no lymphadenopathy Thyroid: bilateral: normal size - Respiratory Respiratory: bilateral: CTA - Cardiovascular Rhythm: regular Heart sounds: normal: S1, S2 - Gastrointestinal General gastrointestinal: normal bowel sounds, soft - Integumentary Integumentary: normal - Neurologic Neurologic: CNII-XII intact - Musculoskeletal Musculoskeletal: generalized weakness, strength equal bilaterally - Psychiatric Psychiatric: A&O x's 3, appropriate affect Results CBC & Chem 7: 07/27/20 07:25 07/27/20 07:25 Labs: Abnormal Lab Results - Last 24 Hours (Table) 07/26/20 07/26/20 07/26/20 Range/Units 16:06 16:06 16:06 WBC (3.8-10.6) k/uL RBC 1.57 L (3.80-5.40) m/uL Hgb 5.6 L* (11.4-16.0) gm/dL Hct 17.3 L* (34.0-46.0) % MCV 110.8 H (80.0-100.0) fL MCH 35.5 H (25.0-35.0) pg RDW 27.5 H (11.5-15.5) % Plt Count 58 L (150-450) k/uL Macrocytosis Marked A APTT 21.2 L (22.0-30.0) sec Potassium 5.4 H (3.5-5.1) mmol/L Chloride (98-107) mmol/L Carbon Dioxide 21 L (22-30) mmol/L BUN 44 H (7-17) mg/dL Creatinine 1.41 H (0.52-1.04) mg/dL Glucose 124 H (74-99) mg/dL Total Protein 5.9 L (6.3-8.2) g/dL Stool Occult Blood (Negative) Crossmatch 07/26/20 07/26/20 07/27/20 Range/Units 16:06 17:50 00:23 WBC (3.8-10.6) k/uL RBC 2.42 L (3.80-5.40) m/uL Hgb 8.5 L D (11.4-16.0) gm/dL Hct 24.2 L (34.0-46.0) % MCV 100.2 H D (80.0-100.0) fL MCH (25.0-35.0) pg RDW 23.6 H (11.5-15.5) % Plt Count 83 L (150-450) k/uL Macrocytosis Marked A APTT (22.0-30.0) sec Potassium (3.5-5.1) mmol/L Chloride (98-107) mmol/L Carbon Dioxide (22-30) mmol/L BUN (7-17) mg/dL Creatinine (0.52-1.04) mg/dL Glucose (74-99) mg/dL Total Protein (6.3-8.2) g/dL Stool Occult Blood Positive H (Negative) Crossmatch See Detail 07/27/20 07/27/20 Range/Units 07:25 07:25 WBC 3.2 L (3.8-10.6) k/uL RBC 2.37 L (3.80-5.40) m/uL Hgb 8.3 L (11.4-16.0) gm/dL Hct 23.8 L (34.0-46.0) % MCV 100.4 H (80.0-100.0) fL MCH (25.0-35.0) pg RDW 23.7 H (11.5-15.5) % Plt Count 42 L (150-450) k/uL Macrocytosis Marked A APTT (22.0-30.0) sec Potassium (3.5-5.1) mmol/L Chloride 108 H (98-107) mmol/L Carbon Dioxide (22-30) mmol/L BUN 33 H (7-17) mg/dL Creatinine 1.19 H (0.52-1.04) mg/dL Glucose 73 L (74-99) mg/dL Total Protein (6.3-8.2) g/dL Stool Occult Blood (Negative) Crossmatch CT scan - abdomen: pending CT scan - pelvis: pending Assessment and Plan (1) Symptomatic anemia Narrative/Plan: The patient is being admitted for severe anemia with hemoglobin in the 5 range. Previously she has had iron deficiency anemia due to blood loss, but current history of anemia is due to myelodysplasia. History as described in the HPI. The patient is transfusion dependent, and has weekly CBCs with transfusion for hemoglobin less than 7. She usually has a transfusion every 1-3 weeks. She had not followed up in the office for the past few weeks because of her doctor being ill. - Patient was found to have stool for occult blood positive. This is a no nspecific test. Clinically she is no evidence of GI bleed. Iron studies in the office previously have been normal. Order iron studies on blood drawn prior to transfusion. If these do not indicate bleeding, and further workup for the same and not be required. She had a negative GI workup in 12/16 - Patient is having a CT of the abdomen and pelvis for possible abdominal mass on exam by the admitting service. I didn't appreciate a mass on my exam, though her exam is somewhat limited by her body habitus. Await results of CT of the abdomen and pelvis. This is negative for evidence of mass or bleed, from my standpoint patient can be discharged as her hemoglobin is stable in a safe range posttransfusion. She needs to resume follow-up in the office with her weekly visits and is aware of the same. Current Visit: No Status: Acute Code(s): D64.9 - ANEMIA, UNSPECIFIED SNOMED Code(s): 435139369 (2) Pancytopenia Narrative/Plan: Due to minor dysplastic syndrome. Plan for anemia as above. W BC and platelets are in a safe range, and does not require intervention. Continue to monitor outpatient Current Visit: Yes Status: Acute Code(s): D61.818 - OTHER PANCYTOPENIA SNOMED Code(s): 066975238 (3) Myelodysplasia (myelodysplastic syndrome) Narrative/Plan: Diagnostic and therapeutic circumstances as above. Resume follow-up in the office on discharge Current Visit: Yes Status: Acute Code(s): D46.9 - MYELODYSPLASTIC SYNDROME, UNSPECIFIED SNOMED Code(s): 484393528
--- NOTE | 2020-07-27 13:50 | CT ---
EXAMINATION TYPE: CT abdomen pelvis w con DATE OF EXAM: 07/27/2020 COMPARISON: None HISTORY: fall, Rt sided back hematoma CT DLP: 1244.8 mGycm Automated exposure control for dose reduction was used. CONTRAST: CT scan of the abdomen pelvis is performed with IV Contrast, patient injected with 100 mL of Isovue 3 00. FINDINGS- LUNG BASES-heart is enlarged. There is calcification near the aortic valve and coronary artery calcif ication. A pleural-based thickening seen posteriorly in the left lung. LIVER/GB-postcholecystectomy changes noted.. PANCREAS- No gross abnormality is seen. SPLEEN- No gross abnormality is seen. ADRENALS-negative for soft tissue and fat-containing left adrenal lesion compatible with myolipoma.. KIDNEYS/BLADDER-no hydronephrosis or nephrolithiasis. Multiple hypodense lesions are seen involving t he kidneys. Largest measures 9 Hounsfield units compatible with simple cyst.. BOWEL-diverticulosis of the colon with no CT evidence of diverticulitis.. LYMPH NODES- No greater than 1cm abdominal or pelvic lymph nodes areappreciated. OSSEOUS STRUCTURES-hypertrophic and degenerative changes of the spine. Severe degenerative disc disea se noted. Scoliosis noted.. There is skin thickening along the right anterior lateral chest wall with area of vague edema which could be postinflammatory or postinfectious correlate clinically. OTHER- atherosclerotic change aorta with no evidence of aneurysm. IMPRESSION- 1. No sizable soft tissue mass identified. 2. Diverticulosis with no CT evidence of diverticulitis. 3. Limited noncontrast CT demonstrates findings of multiple renal lesions statistically most likely r elated to cysts. 4. 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 There is soft tissue edema and skin thickening along the right lateral anterior chest wall which c ould be related to an area of inflammation or, edema or small hematoma correlate with point tendernes s.
[2020-07-27] MEDS: ACETAMINOPHEN TAB 325 MG TAB PO PRN ×2 (13:58→20:21)
[2020-07-27] MEDS: FUROSEMIDE 20 MG TAB PO SCH (15:07)
[2020-07-27 16:46] LABS: Glucose,Whole Blood 139 mg/dL (75-99)
[2020-07-27 18:23] LABS: Anisocytosis Moderate; Basophils % (A) 1 %; Eosinophils # (A) 0.2 k/uL (0-0.7); Eosinophils % (A) 5 %; HCT 25.9 % (34.0-46.0); HGB 9.1 gm/dL (11.4-16.0); Lymphocytes % (A) 25 %; MCH 35.3 pg (25.0-35.0); MCHC 35.2 g/dL (31.0-37.0); MCV 100.5 fL (80.0-100.0); Mean Platelet Volume 7.8; Monocytes # (A) 0.4 k/uL (0-1.0); Monocytes % (A) 10 %; Neutrophils # (A) 2.4 k/uL (1.3-7.7); Neutrophils % (A) 58 %; Poikilocytosis Slight; RBC 2.58 m/uL (3.80-5.40); RDW 23.7 % (11.5-15.5); WBC 4.2 k/uL (3.8-10.6)
[2020-07-27 18:30] LABS: Platelet Count 51 k/uL (150-450)
[2020-07-27 18:31] LABS: Macrocytosis Marked
[2020-07-27 20:07] LABS: Glucose,Whole Blood 185 mg/dL (75-99)
[2020-07-27] MEDS: lisinopriL 5 MG TAB PO SCH (20:20)
[2020-07-27] MEDS: GABAPENTIN 300 MG CAP PO PRN (20:21)
[2020-07-27] MEDS: Acetaminophen-Codeine 300-30mg TAB PO SCH (20:22)
[2020-07-27] MEDS: VENLAFAXINE HCL ER 75 MG CAP PO SCH (20:54)
[2020-07-28] MEDS: ACETAMINOPHEN TAB 325 MG TAB PO PRN ×2 (03:22→20:29)
[2020-07-28 06:13] LABS: Glucose,Whole Blood 184 mg/dL (75-99)
[2020-07-28] MEDS: INSULIN ASPART (NovoLOG) 100 UNIT/ML VIAL SQ SCH ×4 (06:55→20:29)
[2020-07-28] MEDS: LEVOTHYROXINE 75 MCG TAB PO SCH (06:55)
[2020-07-28] MEDS: LEVOTHYROXINE 100 MCG TAB PO SCH (06:55)
[2020-07-28] MEDS: INSULIN DETEMIR (LEVEMIR) 100 UNIT/ML SYR SQ SCH ×2 (06:55→20:29)
[2020-07-28] MEDS: CYANOCOBALAMIN 500 MCG TAB PO SCH (08:12)
[2020-07-28] MEDS: FUROSEMIDE 40 MG TAB PO SCH (08:12)
[2020-07-28] MEDS: traMADol 50 MG TAB PO SCH (08:12)
[2020-07-28] MEDS: METOPROLOL TARTRATE 50 MG TAB PO SCH ×2 (08:12→20:29)
[2020-07-28] MEDS: AMIODARONE 200 MG TAB PO SCH ×2 (08:12→20:28)
[2020-07-28] MEDS: ATORVASTATIN 80 MG TAB PO SCH (08:12)
[2020-07-28] MEDS: SPIRONOLACTONE 25 MG TAB PO SCH (08:12)
[2020-07-28] MEDS: VENLAFAXINE HCL ER 150 MG CAP PO SCH (08:13)
[2020-07-28] MEDS: SODIUM CHLORIDE 0.9% 1,000 ML IV SCH (08:13)
[2020-07-28] MEDS: PANTOPRAZOLE 40 MG/10 ML VIAL IV SCH (08:13)
--- NOTE | 2020-07-28 10:23 | P.DS ---
Providers Date of admission: 07/26/20 18:27 Attending physician: Hortencia Houston Consults: 07/26/20 18:28 Consult Physician Stat Consulting Provider: Shalonda Pena Consult Reason/Comments: GI bleed Do you want consulting provider notified?: Yes 07/27/20 09:25 Consult Physician Routine Consulting Provider: Sraoj Siddiqui Consult Reason/Comments: anemia Do you want consulting provider notified?: Yes Primary care physician: Jaxon Palacios [facility] Course: This is a 75-year-old patient of Dr. Palacios was sent to the emergency room related to low hemoglobin. She was recently seen by her primary care physician and found to have a hemoglobin of 5.29. Patient does have refractory anemia as part of her medical history. Patient has frequent transfusions with Dr. Siddiqui who follows her for hematology and Dr. Pena for GI bleed. Patient is complaining of weakness and fatigue. She is not having any palpitations dizziness or shortness of breath. Patient denies any diarrhea or constipation vomiting. No dark bloody stools or burgundy stools noted. Patient's past medical history significant for atrial fibrillation, breast cancer, diabetes mellitus, hypertension, GI bleed, chronic kidney disease stage III, hypothyroidism, depression, sleep apnea with a CPAP machine. At this time patient is found resting comfortably in bed without any complaints. Patient states that she does not have any dizziness or lightheadedness. No constipation or diarrhea. Patient has not had any recent falls. Her last scope was approximate 1 year ago. Patient states that she sees Dr. Siddiqui routinely however due to previously having cold that she had not been in for about a month. WBC 3.2, hemoglobin 8.3, testing 4.6, BUN 33, creatinine 1.19, oh, blood stool positive,covid Negative. Patient is afebrile, heart rate 80, respirations 16, blood pressure 146/61, pulse ox 93% on room air. 5/2: Patient is complaining of dizziness upon rising. Her orthostatics were negative. Hemoglobin was 9.4 this morning. There is no need for a repeat GI workup due to the last GI workup was done 1 month ago. She'll be treated outpatient for her anemia. Discharge diagnosis: 1. Severe anemia. 2. GI bleed. 3. Hyperkalemia. 4. Chronic kidney disease stage III. 5. Weakness. 6. Diabetes mellitus type 2. 7. Hypertension. 8. Atrial fibrillation. 9. Hyperlipidemia. 10. Hypothyroidism. 11. Fibromyalgia, stable. 12. History of breast cancer status post bilateral mastectomy. 13. Generalized anxiety disorder recurrent depression. 14. Obstructive sleep apnea. 15. GERD Discharge disposition: Home with self-care Impression and plan of care have been directed as dictated by the signing physician. Sepideh King nurse practitioner acting as scribe for signing physician. Patient Condition at Discharge: Stable Plan - Discharge Summary Discharge Rx Participant: No New Discharge Prescriptions: Continue Insulin Detemir (Levemir) [Levemir] 40 unit SQ AC-BRKFST Spironolactone [Aldactone] 25 mg PO DAILY Metoprolol Tartrate [Lopressor] 50 mg PO BID Venlafaxine HCl [Effexor XR] 150 mg PO DAILY Venlafaxine HCl [Effexor XR] 75 mg PO HS lisinopriL [Zestril] 5 mg PO HS Levothyroxine Sodium [Synthroid] 75 mcg PO DAILY Levothyroxine Sodium [Synthroid] 200 mcg PO DAILY Cyanocobalamin [Vitamin B-12] 500 mcg PO DAILY Amiodarone [Cordarone] 200 mg PO BID Furosemide [Lasix] 40 mg PO DAILY INSULIN LISPRO (HumaLOG) [humaLOG] See Protocol SQ AC-TID Furosemide [Lasix] 20 mg PO DAILY@1600 Ergocalciferol [Vitamin D2 (1250 Mcg = 14801 Iu)] 1,250 mcg PO Q14D Lidocaine-Prilocaine Cream [Emla Cream 2.5%/2.5%] 1 applic TOPICAL DAILY PRN PRN Reason: PORT ACCESS traMADol HCL 50 mg PO DAILY Aspirin EC [Ecotrin] 325 mg PO DAILY Albuterol Inhaler [Ventolin Hfa Inhaler] 2 puff INHALATION RT-Q6H PRN PRN Reason: Shortness Of Breath metFORMIN HCL [Glucophage] 1,000 mg PO AC-BID Atorvastatin [Lipitor] 80 mg PO DAILY Insulin Detemir (Levemir) [Levemir] 35 unit SQ HS Gabapentin 600 mg PO Q5H PRN PRN Reason: Pain Acetaminophen-Codeine 300-30mg [Tylenol w/codeine #3] 1 tab PO HS Discharge Medication List Insulin Detemir (Levemir) [Levemir] 40 unit SQ AC-BRKFST 01/01/14 [History] Spironolactone [Aldactone] 25 mg PO DAILY 01/01/14 [History] Levothyroxine Sodium [Synthroid] 75 mcg PO DAILY 01/20/19 [History] Levothyroxine Sodium [Synthroid] 200 mcg PO DAILY 01/20/19 [History] Metoprolol Tartrate [Lopressor] 50 mg PO BID 01/20/19 [History] Venlafaxine HCl [Effexor XR] 75 mg PO HS 01/20/19 [History] Venlafaxine HCl [Effexor XR] 150 mg PO DAILY 01/20/19 [History] lisinopriL [Zestril] 5 mg PO HS 01/20/19 [History] Amiodarone [Cordarone] 200 mg PO BID 05/03/19 [History] Cyanocobalamin [Vitamin B-12] 500 mcg PO DAILY 05/03/19 [History] Furosemide [Lasix] 20 mg PO DAILY@1600 12/10/19 [History] Furosemide [Lasix] 40 mg PO DAILY 12/10/19 [History] INSULIN LISPRO (HumaLOG) [humaLOG] See Protocol SQ AC-TID 12/10/19 [History] Acetaminophen-Codeine 300-30mg [Tylenol w/codeine #3] 1 tab PO HS 07/26/20 [History] Albuterol Inhaler [Ventolin Hfa Inhaler] 2 puff INHALATION RT-Q6H PRN 07/26/20 [History] Aspirin EC [Ecotrin] 325 mg PO DAILY 07/26/20 [History] Atorvastatin [Lipitor] 80 mg PO DAILY 07/26/20 [History] Ergocalciferol [Vitamin D2 (1250 Mcg = 62526 Iu)] 1,250 mcg PO Q14D 07/26/20 [History] Gabapentin 600 mg PO Q5H PRN 07/26/20 [History] Insulin Detemir (Levemir) [Levemir] 35 unit SQ HS 07/26/20 [History] Lidocaine-Prilocaine Cream [Emla Cream 2.5%/2.5%] 1 applic TOPICAL DAILY PRN 07/26/20 [History] metFORMIN HCL [Glucophage] 1,000 mg PO AC-BID 07/26/20 [History] traMADol HCL 50 mg PO DAILY 07/26/20 [History] Follow up Appointment(s)/Referral(s): Saroj Siddiqui MD [Family Provider] - 1-2 Days (Please call to shedule follow up. ) Jaxon Palacios MD [Primary Care Provider] - 1-2 days (Office closed - please call to schedule follow - up. ) Patient Instructions/Handouts: Anemia (DC)
[2020-07-28 11:37] LABS: Anisocytosis Moderate; Basophils % (A) 0 %; Eosinophils # (A) 0.1 k/uL (0-0.7); Eosinophils % (A) 4 %; HGB 8.4 gm/dL (11.4-16.0); Lymphocytes # (A) 0.5 k/uL (1.0-4.8); Lymphocytes % (A) 18 %; MCH 35.1 pg (25.0-35.0); MCHC 34.8 g/dL (31.0-37.0); MCV 100.8 fL (80.0-100.0); Macrocytosis Marked; Mean Platelet Volume 8.1; Monocytes # (A) 0.3 k/uL (0-1.0); Monocytes % (A) 11 %; Neutrophils # (A) 1.7 k/uL (1.3-7.7); Neutrophils % (A) 63 %; Poikilocytosis Slight; RBC 2.38 m/uL (3.80-5.40); RDW 23.6 % (11.5-15.5); WBC 2.8 k/uL (3.8-10.6)
[2020-07-28 11:43] LABS: Glucose,Whole Blood 136 mg/dL (75-99)
[2020-07-28 11:43] LABS: Platelet Count 44 k/uL (150-450)
--- NOTE | 2020-07-28 11:51 | PN ---
PROGRESS NOTE DATE OF DICTATION: July 28, 2020 Patient is a 75-year-old pleasant white female admitted to the hospital with severe symptomatic anemia requiring 2 units of PRBC transfusion. She was seen by Dr. Siddiqui and apparently patient was diagnosed with myelodysplastic syndrome and has been transfusion dependent for the last several months. Hemoglobin is 8.3 g/dL. She presently denies any abdominal pain. No nausea, no vomiting. No rectal bleeding or melena. PHYSICAL EXAMINATION: Blood pressure 139/64, pulse rate 71, temperature 98.3. HEENT examination unremarkable. Conjunctivae pink. Sclerae anicteric. Oral cavity no lesions. NECK: No JVD. No lymph node enlargement. CHEST was clear to auscultation. HEART: Regular rate and rhythm. ABDOMEN: Soft. Bowel sounds are positive. No organomegaly. It was obese. EXTREMITIES: No pedal edema. SKIN no rashes. NEUROLOGIC: Alert and oriented x3. No focal deficits. LABS: From today WBC 9.1, hemoglobin 4.2, and platelets 51. CT of the abdomen and pelvis was unremarkable. IMPRESSION: 1. Myelodysplastic syndrome with refractory anemia. The patient transfusion- dependent. Clinically no evidence of active bleeding. She was noted to have Hemoccult-positive stool and multiple EGDs and colonoscopies in the past. Last in May of 2019 that showed small colon polyps. 2. Thrombocytopenia secondary to myelodysplastic syndrome. RECOMMENDATIONS: 1. Continue symptomatic and supportive care. 2. Monitor CBC daily. 3. No plans for any endoscopic intervention at the present time. 4. Will sign off at this time. Please call us if needed. Thank you for this consultation. MMODL / IJN: [id number] /
[2020-07-28 12:13] LABS: % Iron Saturation 80.07 (12.00-45.00)
[2020-07-28] MEDS: FUROSEMIDE 20 MG TAB PO SCH (15:22)
[2020-07-28 16:40] LABS: Glucose,Whole Blood 166 mg/dL (75-99)
[2020-07-28 18:42] LABS: Anisocytosis Moderate; Basophils % (A) 1 %; Eosinophils # (A) 0.1 k/uL (0-0.7); Eosinophils % (A) 5 %; HCT 24.5 % (34.0-46.0); HGB 8.3 gm/dL (11.4-16.0); Lymphocytes # (A) 0.6 k/uL (1.0-4.8); Lymphocytes % (A) 21 %; MCH 34.6 pg (25.0-35.0); Macrocytosis Marked; Mean Platelet Volume 8.5; Monocytes # (A) 0.3 k/uL (0-1.0); Monocytes % (A) 10 %; Neutrophils # (A) 1.8 k/uL (1.3-7.7); Neutrophils % (A) 60 %; Poikilocytosis Slight; RDW 23.6 % (11.5-15.5); WBC 2.9 k/uL (3.8-10.6)
[2020-07-28 19:01] LABS: Platelet Count 43 k/uL (150-450)
[2020-07-28 20:04] LABS: Glucose,Whole Blood 199 mg/dL (75-99)
[2020-07-28] MEDS: lisinopriL 5 MG TAB PO SCH (20:29)
[2020-07-28] MEDS: VENLAFAXINE HCL ER 75 MG CAP PO SCH (20:29)
[2020-07-28] MEDS: Acetaminophen-Codeine 300-30mg TAB PO SCH (20:41)
[2020-07-28] MEDS: GABAPENTIN 300 MG CAP PO PRN (23:24)
[2020-07-29] MEDS: SODIUM CHLORIDE 0.9% 1,000 ML IV SCH (03:30)
[2020-07-29 06:59] LABS: Glucose,Whole Blood 124 mg/dL (75-99)
[2020-07-29] MEDS: INSULIN ASPART (NovoLOG) 100 UNIT/ML VIAL SQ SCH (07:06)
[2020-07-29] MEDS: LEVOTHYROXINE 100 MCG TAB PO SCH (07:12)
[2020-07-29] MEDS: LEVOTHYROXINE 75 MCG TAB PO SCH (07:12)
[2020-07-29] MEDS: INSULIN DETEMIR (LEVEMIR) 100 UNIT/ML SYR SQ SCH (07:13)
[2020-07-29] MEDS ORDERED: metFORMIN 500 MG TAB PO SCH (07:30)
[2020-07-29 08:28] LABS: Anisocytosis Moderate; Basophils % (A) 0 %; Eosinophils # (A) 0.2 k/uL (0-0.7); Eosinophils % (A) 4 %; HCT 25.4 % (34.0-46.0); HGB 8.7 gm/dL (11.4-16.0); Lymphocytes % (A) 27 %; MCH 35.1 pg (25.0-35.0); MCHC 34.3 g/dL (31.0-37.0); MCV 102.3 fL (80.0-100.0); Macrocytosis Marked; Mean Platelet Volume 7.4; Monocytes # (A) 0.4 k/uL (0-1.0); Monocytes % (A) 11 %; Neutrophils # (A) 2.1 k/uL (1.3-7.7); Neutrophils % (A) 55 %; Poikilocytosis Slight; RBC 2.49 m/uL (3.80-5.40); RDW 23.2 % (11.5-15.5); WBC 3.7 k/uL (3.8-10.6)
[2020-07-29] MEDS: PANTOPRAZOLE 40 MG/10 ML VIAL IV SCH (08:39)
[2020-07-29] MEDS: AMIODARONE 200 MG TAB PO SCH (08:40)
[2020-07-29] MEDS: traMADol 50 MG TAB PO SCH (08:40)
[2020-07-29] MEDS: ATORVASTATIN 80 MG TAB PO SCH (08:40)
[2020-07-29] MEDS: METOPROLOL TARTRATE 50 MG TAB PO SCH (08:40)
[2020-07-29] MEDS: CYANOCOBALAMIN 500 MCG TAB PO SCH (08:40)
[2020-07-29] MEDS: SPIRONOLACTONE 25 MG TAB PO SCH (08:40)
[2020-07-29] MEDS: VENLAFAXINE HCL ER 150 MG CAP PO SCH (08:40)
[2020-07-29] MEDS: FUROSEMIDE 40 MG TAB PO SCH (08:42)
[2020-07-29 08:50] LABS: Platelet Count 52 k/uL (150-450)
[2020-07-29 10:21] VITALS: BP 139/63; PULSE 73; RESP 18; TEMP 98.5
--- NOTE | 2020-07-29 17:07 | P.PN ---
Subjective Progress Note Date: 07/29/20 Principal diagnosis: myelodysplastic syndrome In follow-up today patient has finished her lunch, she is denying bleeding or pain, no signs or symptoms related to chronic anemia. Objective - Vital Signs Vital signs: Vital Signs Temp 98.5 F 07/29/20 08:35 Pulse 73 07/29/20 08:35 Resp 18 07/29/20 08:35 BP 139/63 07/29/20 08:35 Pulse Ox 96 07/29/20 08:35 Intake & Output 07/28/20 07/29/20 07/29/20 18:59 06:59 18:59 Intake Total 1020 10 240 Output Total 500 Balance 1020 -490 240 Weight 117.1 kg Intake: IV 600 10 Invasive Line 2 10 Sodium Chloride 0.9% 1, 600 000 ml @ 75 mls/hr IV . [id number] Rx#:[id number] Oral 420 240 Output: Urine 500 Other: Voiding Method Toilet Toilet # Voids 1 1 - Constitutional General appearance: Present: cooperative, no acute distress, obese - EENT Eyes: Present: anicteric sclerae, EOMI ENT: Present: hearing grossly normal - Respiratory Details: respirations even and unlabored at rest - Neurologic Neurologic: Present: CNII-XII intact - Musculoskeletal Musculoskeletal: Present: strength equal bilaterally - Psychiatric Psychiatric: Present: A&O x's 3, appropriate affect, intact judgment & insight - Labs CBC & Chem 7: 07/29/20 07:49 07/27/20 07:25 Labs: Abnormal Lab Results - Last 24 Hours (Table) 07/28/20 07/28/20 07/28/20 Range/Units 16:38 18:12 20:03 WBC 2.9 L (3.8-10.6) k/uL RBC 2.40 L (3.80-5.40) m/uL Hgb 8.3 L (11.4-16.0) gm/dL Hct 24.5 L (34.0-46.0) % MCV 102.0 H (80.0-100.0) fL MCH (25.0-35.0) pg RDW 23.6 H (11.5-15.5) % Plt Count 43 L (150-450) k/uL Lymphocytes # 0.6 L (1.0-4.8) k/uL Macrocytosis Marked A POC Glucose (mg/dL) 166 H 199 H (75-99) mg/dL 07/29/20 07/29/20 Range/Units 06:58 07:49 WBC 3.7 L (3.8-10.6) k/uL RBC 2.49 L (3.80-5.40) m/uL Hgb 8.7 L (11.4-16.0) gm/dL Hct 25.4 L (34.0-46.0) % MCV 102.3 H (80.0-100.0) fL MCH 35.1 H (25.0-35.0) pg RDW 23.2 H (11.5-15.5) % Plt Count 52 L (150-450) k/uL Lymphocytes # (1.0-4.8) k/uL Macrocytosis Marked A POC Glucose (mg/dL) 124 H (75-99) mg/dL - Imaging and Cardiology CT scan - pelvis: report reviewed US - abdomen: report reviewed Assessment and Plan (1) Myelodysplasia (myelodysplastic syndrome) Status: Chronic Priority: Medium Code(s): D46.9 - MYELODYSPLASTIC SYNDROME, UNSPECIFIED SNOMED Code(s): 658615726 (2) Pancytopenia Status: Chronic Priority: Medium Code(s): D61.818 - OTHER PANCYTOPENIA SNOMED Code(s): 717818173 (3) Symptomatic anemia Status: Acute Priority: High Code(s): D64.9 - ANEMIA, UNSPECIFIED SNOMED Code(s): 939820524 Plan: I reminded patient today of her appointment on 08/05/20 at 2 PM. This is for her weekly follow-up and colony stimulating factor reblozyl injections for anemia secondary to myelodysplastic syndrome. She will continue to receive palliative transfusions as needed for hemoglobin less than 7 Patient did receive 2 units of packed red blood cells for symptomatic anemia on admission WBCs and platelets are stable for her. No acute intervention Reviewed CT of the abdomen and pelvis, no mass noted, discussed results with pt.
[2020-08-08] MEDS ORDERED: ERGOCALCIFEROL 1,250 MCG (50,000 IU) CAPSULE PO SCH (09:00)
== END 2020-07-29 13:28 | disposition home or self-care (01) | DRG 812 ==
LOC: EC 14:53 → 3SCARD 18:27
PROVIDERS: ADMIT Family Medicine; ATTEND Family Medicine
PROC: 30233N1 Transfusion of Nonautologous Red Blood Cells into Peripheral Vein, Percutaneous Approach (ICD-10-PCS; principal; 2020-07-26)
DX: D46.4 Refractory anemia, unspecified (principal); D61.818 Other pancytopenia; K92.1 Melena; F33.9 Major depressive disorder, recurrent, unspecified; I13.0 Hypertensive heart and chronic kidney disease with heart failure and stage 1 through stage 4 chronic kidney disease, or unspecified chronic kidney disease; I50.32 Chronic diastolic (congestive) heart failure; Z68.42 Body mass index [BMI] 45.0-49.9, adult; E03.9 Hypothyroidism, unspecified; E11.22 Type 2 diabetes mellitus with diabetic chronic kidney disease; E78.5 Hyperlipidemia, unspecified; E87.5 Hyperkalemia; F41.1 Generalized anxiety disorder; G47.33 Obstructive sleep apnea (adult) (pediatric); Z99.89 Dependence on other enabling machines and devices; I25.10 Atherosclerotic heart disease of native coronary artery without angina pectoris; I25.2 Old myocardial infarction; I48.0 Paroxysmal atrial fibrillation; R42 Dizziness and giddiness; R11.0 Nausea; J44.9 Chronic obstructive pulmonary disease, unspecified; K21.9 Gastro-esophageal reflux disease without esophagitis; Z20.822 Contact with and (suspected) exposure to COVID-19; Z86.010 Personal history of colon polyps; M79.7 Fibromyalgia; N18.30 Chronic kidney disease, stage 3 unspecified; Z79.4 Long term (current) use of insulin; Z79.82 Long term (current) use of aspirin; Z79.890 Hormone replacement therapy; Z79.899 Other long term (current) drug therapy; Z80.3 Family history of malignant neoplasm of breast; Z83.3 Family history of diabetes mellitus; Z85.3 Personal history of malignant neoplasm of breast; Z86.718 Personal history of other venous thrombosis and embolism; Z87.891 Personal history of nicotine dependence; Z90.13 Acquired absence of bilateral breasts and nipples; Z95.5 Presence of coronary angioplasty implant and graft; Z99.81 Dependence on supplemental oxygen; K57.90 Diverticulosis of intestine, part unspecified, without perforation or abscess without bleeding; Z88.0 Allergy status to penicillin; Z88.2 Allergy status to sulfonamides; E66.9 Obesity, unspecified; Z90.49 Acquired absence of other specified parts of digestive tract; H49.00 Third [oculomotor] nerve palsy, unspecified eye
CPT/HCPCS: 36415; 74177; 80048; 80053; 82272; 83540; 83550; 85025; 85027; 85610; 85730; 86850; 86900; 86901; 86920; 87635; 99284

== ENCOUNTER 2020-08-14 12:44 | Emergency (ER) | payer MEDICARE ==
[2020-08-14] MEDS ORDERED: LIDOCAINE 1%-EPI 1:100,000 20 ML VIAL SQ STA (13:19)
[2020-08-14] MEDS ORDERED: DIPH,PERTUS(ACELL)TETVAC-LF 0.5 ML VIAL IM ONE (13:21)
--- NOTE | 2020-08-14 13:22 | ED ---
General Adult HPI <Pepe Ware P - Last Filed: 08/14/20 13:55> - General Source: patient Mode of arrival: EMS Limitations: physical limitation <Latha Alanizjenny Moeller - Last Filed: 08/14/20 14:16> - General Chief complaint: Fall Stated complaint: Laceration L greene Time Seen by Provider: 08/14/20 13:12 - History of Present Illness Initial comments: Dictation was produced using [employer] dictation software. please excuse any grammatical, word or spelling errors. This patient was cared for during a federal and state declared state of emergency secondary to Covid 19 Chief Complaint: 75-year-old female presents with left greene laceration after tripping History of Present Illness: 75-year-old female presents with friend. Patient ambulates with a walker. She tripped on the door jam causing her to fall backwards and landed on her glutes. She cut her leg on the left greene while falling. Patient hasn't had trauma she does not take any thinners. She denies any headache. She has no extremity pain or chest pain. No abdominal pain. She does have some mild pain over her coccyx. The ROS documented in this emergency department record has been reviewed and confirmed by me. Those systems with pertinent positive or negative responses have been documented in the HPI. All other systems are other negative and/or noncontributory. PHYSICAL EXAM: General Impression: Alert and oriented x3, not in acute distress HEENT: Normocephalic atraumatic, extra-ocular movements intact, pupils equal and reactive to light bilaterally, mucous membranes moist. Cardiovascular: Heart regular rate and rhythm Chest: Able to complete full sentences, no retractions, no tachypnea Abdomen: abdomen soft, non-tender, non-distended, no organomegaly Musculoskeletal: Pulses present and equal in all extremities, no peripheral edema, mild point tenderness to the coccyx area Motor: no focal deficits noted Neurological: CN II-XII grossly intact, no focal motor or sensory deficits noted Skin: Left greene avulsion laceration measuring approximately 5 cm Psych: Normal affect and mood ED course: 75-year-old female presents with coccygeal pain, left tibia laceration signs upon arrival are within acceptable limits. She is requesting a blood transfusion for anemia that was initially scheduled by her tank wagon operator to be done outpatient basis. She requested a hemoglobin check and she was given a transfusion while in the ER. Pelvis x-ray is unremarkable. We called up to the infusion center and they would gladly take patient for her transfusion. Pelvis x-rays negative. Laceration was repaired by physician commercial lines account assistant Pepe Siegel. Patient is currently on Augmentin for urinary tract infection. I was initially cannot give patient prescription for antibiotics for infection prophylaxis however she has 7 days of Augmentin left. Patient be discharged. (Devin Alaniz) - Related Data Home Medications Medication Instructions Recorded Confirmed Insulin Detemir (Levemir) [Levemir] 40 unit SQ AC-BRKFST 01/01/14 08/08/20 Spironolactone [Aldactone] 25 mg PO DAILY 01/01/14 08/08/20 Levothyroxine Sodium [Synthroid] 75 mcg PO DAILY 01/20/19 08/08/20 Levothyroxine Sodium [Synthroid] 200 mcg PO DAILY 01/20/19 08/08/20 Metoprolol Tartrate [Lopressor] 50 mg PO BID 01/20/19 08/08/20 Venlafaxine HCl [Effexor XR] 75 mg PO HS 01/20/19 08/08/20 Venlafaxine HCl [Effexor XR] 150 mg PO DAILY 01/20/19 08/08/20 lisinopriL [Zestril] 5 mg PO HS 01/20/19 08/08/20 Amiodarone [Cordarone] 200 mg PO BID 05/03/19 08/08/20 Cyanocobalamin [Vitamin B-12] 500 mcg PO DAILY 05/03/19 08/08/20 Furosemide [Lasix] 20 mg PO DAILY@1600 12/10/19 08/08/20 Furosemide [Lasix] 40 mg PO DAILY 12/10/19 08/08/20 INSULIN LISPRO (HumaLOG) [humaLOG] See Protocol SQ AC-TID 12/10/19 08/08/20 Acetaminophen-Codeine 300-30mg 1 tab PO HS 07/26/20 08/08/20 [Tylenol w/codeine #3] Albuterol Inhaler [Ventolin Hfa 2 puff INHALATION RT-Q6H PRN 07/26/20 08/08/20 Inhaler] Aspirin EC [Ecotrin] 325 mg PO DAILY 07/26/20 08/08/20 Atorvastatin [Lipitor] 80 mg PO DAILY 07/26/20 08/08/20 Ergocalciferol [Vitamin D2 (1250 1,250 mcg PO Q14D 07/26/20 08/08/20 Mcg = 60667 Iu)] Gabapentin 600 mg PO Q5H PRN 07/26/20 08/08/20 Insulin Detemir (Levemir) [Levemir] 35 unit SQ HS 07/26/20 08/08/20 Lidocaine-Prilocaine Cream [Emla 1 applic TOPICAL DAILY PRN 07/26/20 08/08/20 Cream 2.5%/2.5%] metFORMIN HCL [Glucophage] 1,000 mg PO AC-BID 07/26/20 08/08/20 traMADol HCL 50 mg PO DAILY 07/26/20 08/08/20 Allergies Allergy/AdvReac Type Severity Reaction Status Date / Time fluoxetine HCl [From Prozac] Allergy Intermediate Itching Verified 08/14/20 12:53 gluten Allergy Intermediate Nausea & Verified 08/14/20 12:53 Vomiting Sulfa (Sulfonamide Allergy Intermediate Itching Verified 08/14/20 12:53 Antibiotics) mercury (elemental) Allergy Rash/Hives Verified 08/14/20 12:53 Review of Systems ROS Other: All systems not noted in ROS Statement are negative. <Pepe Ware P - Last Filed: 08/14/20 13:55> ROS Other: All systems not noted in ROS Statement are negative. <Devin Alaniz D - Last Filed: 08/14/20 14:16> ROS Statement: Those systems with pertinent positive or pertinent negative responses have been documented in the HPI. Past Medical History Past Medical History: Atrial Fibrillation, Cancer, Diabetes Mellitus, Hypertension, Sleep Apnea/CPAP/BIPAP, Thyroid Disorder Additional Past Medical History / Comment(s): Heart disease, ocular neuritis, refractory anemia Last Myocardial Infarction Date:: 2018 History of Any Multi-Drug Resistant Organisms: None Reported Past Surgical History: Appendectomy, Breast Surgery, Cholecystectomy, Heart Catheterization With Stent Additional Past Surgical History / Comment(s): bilateral masectomy, heart cath follow up in 2000 Past Anesthesia/Blood Transfusion Reactions: No Reported Reaction Additional Past Anesthesia/Blood Transfusion Reaction / Comment(s): Pt has received blood without reaction. Date of Last Stent Placement:: 1997 Past Psychological History: Depression Smoking Status: Former smoker Past Alcohol Use History: None Reported Past Drug Use History: None Reported - Past Family History Father Family Medical History: Coronary Artery Disease (CAD), Hypertension, Myocardial Infarction (MS) Additional Family Medical History / Comment(s): Father at age 72 from coronary artery disease with history of diabetes Mother Family Medical History: Coronary Artery Disease (CAD) Additional Family Medical History / Comment(s): Mother at age 72 with history of coronary artery disease and diabetes. Sister(s) Additional Family Medical History / Comment(s): Patient has 1 sister with no major medical problems. Patient does not have. His. Patient has 1 daughter with no major medical problems. No history of breast cancer. <Devin Alaniz - Last Filed: 08/14/20 14:16> General Exam Limitations: physical limitation <Devin Alaniz - Last Filed: 08/14/20 14:16> Course Vital Signs 08/14/20 12:46 Temperature 98.3 F Pulse Rate 51 L Respiratory 20 Rate Blood Pressure 118/50 O2 Sat by Pulse 94 L Oximetry Procedures - Laceration Laceration #1 Consent Obtained: verbal consent Site: lower extremity Size (cm): 5 Description: flap Depth: simple, single layer Anesthetic Used: lidocaine 1%, with epi Anesthesia Technique: local infiltration Amount (mls): 4 Pre-repair: wound explored, irrigated extensively (saline pressure irrigation) Type of Sutures: nylon Size of Sutures: 5-0 Number of Sutures: 8 Technique: simple, interrupted (7), horizontal mattress (1) Patient Tolerated Procedure: well, no complications <Pepe Ware P - Last Filed: 08/14/20 13:55> Disposition <Pepe Ware P - Last Filed: 08/14/20 13:55> Is patient prescribed a controlled substance at d/c from ED?: No <Devin Alaniz - Last Filed: 08/14/20 14:16> Clinical Impression: Laceration, Fall Disposition: HOME SELF-CARE Condition: Good Instructions (If sedation given, give patient instructions): Fall Prevention for Older Adults (ED) Referrals: Jaxon Palacios MD [Primary Care Provider] - 1-2 days
--- NOTE | 2020-08-14 13:45 | XR ---
AP pelvis HISTORY: Trauma and pain Single frontal view of the pelvis is submitted. Exam correlated to prior CT dated 07/27/2020 Bone mineralization, joint spaces and alignment appear maintained, patient is rotated, exam may be so mewhat limited by patient body habitus, technique of the exam. Degenerative disc changes are present at the lumbosacral junction. IMPRESSION: No evident fracture or dislocation within the limitations of the exam.
[2020-08-14 14:15] LABS: Anisocytosis Marked; Basophils % (A) 0 %; Eosinophils # (A) 0.2 k/uL (0-0.7); Eosinophils % (A) 4 %; Lymphocytes # (A) 1.4 k/uL (1.0-4.8); Lymphocytes % (A) 25 %; MCHC 35.2 g/dL (31.0-37.0); MCV 99.2 fL (80.0-100.0); Macrocytosis Marked; Mean Platelet Volume 7.8; Monocytes # (A) 0.6 k/uL (0-1.0); Monocytes % (A) 10 %; Neutrophils # (A) 3.4 k/uL (1.3-7.7); Neutrophils % (A) 59 %; Poikilocytosis Slight; RBC 1.94 m/uL (3.80-5.40); RDW 24.9 % (11.5-15.5); WBC 5.7 k/uL (3.8-10.6)
[2020-08-14 14:18] VITALS: BP 140/50; PULSE 63; RESP 18; TEMP 98.4
[2020-08-14 14:37] LABS: HCT 19.2 % (34.0-46.0); HGB 6.8 gm/dL (11.4-16.0); Platelet Count 55 k/uL (150-450)
[2020-08-14 15:09] LABS: Polychromasia Present
== END 2020-08-14 14:40 | disposition home or self-care (01) ==
LOC: EC 12:44
DX: S81.812A Laceration without foreign body, left lower leg, initial encounter (principal); I48.91 Unspecified atrial fibrillation; E11.9 Type 2 diabetes mellitus without complications; I21.9 Acute myocardial infarction, unspecified; I10 Essential (primary) hypertension; G47.30 Sleep apnea, unspecified; Z87.891 Personal history of nicotine dependence; Z79.4 Long term (current) use of insulin; W01.119A Fall on same level from slipping, tripping and stumbling with subsequent striking against unspecified sharp object, initial encounter
CPT/HCPCS: 12002 ×2; 99284 ×2; 90471 ×2; 36415; 85025; 72170; 90715; 36430; P9016; J1642

== ENCOUNTER → 2020-10-08 | Day surgery (SDC) | payer MEDICARE ==
[2020-10-02 12:23] VITALS: BMI 49.1
[~2020-10-08] MED LIST: IOPAMIDOL-250 100ML BTL INTRAARTER ONE
== END ==
LOC: CATHCVL 11:06
PROVIDERS: ATTEND Radiology Diagnostic Radiology
DX: Z45.2 Encounter for adjustment and management of vascular access device (principal); D46.0 Refractory anemia without ring sideroblasts, so stated
CPT/HCPCS: 36598; Q9966

== ENCOUNTER 2020-10-10 14:33 | Inpatient (IN) | payer MEDICARE ==
--- NOTE | 2020-10-10 16:24 | ED ---
General Adult HPI - General Chief complaint: Recheck/Abnormal Lab/Rx Stated complaint: Weakness Time Seen by Provider: 10/10/20 15:30 Source: patient, RN notes reviewed, old records reviewed Mode of arrival: wheelchair Limitations: no limitations - History of Present Illness Initial comments: Patient is a 75-year-old female with past medical history remarkable for atrial fibrillation, myelodysplastic syndrome, paroxysmal atrial fibrillation, pancytopenia secondary to myelodysplastic syndrome, currently on chemoradiation with recent extravasation near her port site in her right chest. Patient presents from her oncologist office where was found that she is acutely anemic. Hemoglobin was in the 5's. Patient was sent to the emergency department for blood transfusion and likely admission hospital. Patient denies any abdominal pain, chest pain, headaches, weakness. She does endorse some mild dyspnea which comes and goes. She denies any fevers, chills, cough. She denies any urinary complaints at this time. Patient voices no acute complaints at this time. She presents after being sent in for symptomatic anemia. - Related Data Home Medications Medication Instructions Recorded Confirmed Insulin Detemir (Levemir) [Levemir] 50 unit SQ AC-BRKFST 01/01/14 10/10/20 Spironolactone [Aldactone] 25 mg PO DAILY 01/01/14 10/10/20 Levothyroxine Sodium [Synthroid] 75 mcg PO DAILY 01/20/19 10/10/20 Metoprolol Tartrate [Lopressor] 50 mg PO BID 01/20/19 10/10/20 Venlafaxine HCl [Effexor XR] 75 mg PO HS 01/20/19 10/10/20 Venlafaxine HCl [Effexor XR] 150 mg PO DAILY 01/20/19 10/10/20 lisinopriL [Zestril] 5 mg PO HS 01/20/19 10/10/20 Amiodarone [Cordarone] 200 mg PO BID 05/03/19 10/10/20 Cyanocobalamin [Vitamin B-12] 500 mcg PO DAILY 05/03/19 10/10/20 Atorvastatin [Lipitor] 80 mg PO HS 07/26/20 10/10/20 Ergocalciferol [Vitamin D2 (1250 1,250 mcg PO Q14D 07/26/20 10/10/20 Mcg = 11483 Iu)] Gabapentin 600 mg PO QID 07/26/20 10/10/20 Insulin Detemir (Levemir) [Levemir] 55 unit SQ HS 07/26/20 10/10/20 metFORMIN HCL [Glucophage] 1,000 mg PO AC-BID 07/26/20 10/10/20 Aspirin [Adult Low Dose Aspirin EC] 81 mg PO DAILY 10/02/20 10/10/20 Allergies Allergy/AdvReac Type Severity Reaction Status Date / Time fluoxetine HCl [From Prozac] Allergy Intermediate Itching Verified 10/10/20 18:48 gluten Allergy Intermediate Nausea & Verified 10/10/20 18:48 Vomiting Sulfa (Sulfonamide Allergy Intermediate Itching Verified 10/10/20 18:48 Antibiotics) mercury (elemental) Allergy Rash/Hives Verified 10/10/20 18:48 Review of Systems ROS Statement: Those systems with pertinent positive or pertinent negative responses have been documented in the HPI. Review of Systems: CONST: Endorses fatigue EYES: Denies blurry vision ENT: Denies nasal congestion C/V: Denies Chest pain RESP: Endorses shortness of breath GI: Denies abdominal pain : Denies dysuria SKIN: Denies rash. MSK: Denies joint pain. NEURO: Denies headache ROS Other: All systems not noted in ROS Statement are negative. Past Medical History Past Medical History: Atrial Fibrillation, Blood Disorder, Cancer, Diabetes Mellitus, Hyperlipidemia, Hypertension, Renal Disease, Sleep Apnea/CPAP/BIPAP, Thyroid Disorder Additional Past Medical History / Comment(s): Heart disease, ocular neuritis, refractory anemia, breast cancer, myelodyspasia, reblozyl injection every 3 weeks for anemia, had blood transfusion today Last Myocardial Infarction Date:: 2018 History of Any Multi-Drug Resistant Organisms: None Reported Past Surgical History: Appendectomy, Breast Surgery, Cholecystectomy, Heart Catheterization With Stent Additional Past Surgical History / Comment(s): bilateral masectomy, heart cath follow up in 2000 port-a-cath 2020 Past Anesthesia/Blood Transfusion Reactions: No Reported Reaction Additional Past Anesthesia/Blood Transfusion Reaction / Comment(s): Pt has received blood without reaction. Date of Last Stent Placement:: 1997 Past Psychological History: Depression Smoking Status: Former smoker Past Alcohol Use History: None Reported Past Drug Use History: None Reported - Past Family History Father Family Medical History: Coronary Artery Disease (CAD), Hypertension, Myocardial Infarction ([place]) Additional Family Medical History / Comment(s): Father at age 72 from coronary artery disease with history of diabetes Mother Family Medical History: Coronary Artery Disease (CAD) Additional Family Medical History / Comment(s): Mother at age 72 with history of coronary artery disease and diabetes. Sister(s) Additional Family Medical History / Comment(s): Patient has 1 sister with no major medical problems. Patient does not have. His. Patient has 1 daughter with no major medical problems. No history of breast cancer. General Exam - General Exam Comments Initial Comments: General: Appears in no acute distress. HEAD: Normal with no signs of head trauma. EYES: PERRLA, EOMI, conjunctiva normal, no discharge. ENT: Hearing grossly intact, normal oropharynx. RESPIRATORY: Clear breath sounds bilaterally. No wheezes, rales, or rhonchi. C/V: Patient is somewhat bradycardic with a pulse in the 49. S1 and S2 auscultated. Patient has 2+ peripheral pulses all 4 extremities. ABD: Abd is soft, nontender, nondistended EXT: Normal range of motion, no obvious deformity SKIN: Patient does have a large subacute bruise located over the right chest likely secondary to extravasation from her portraying chemo treatment. This is known has been there for multiple weeks. It is relatively unchanged. NEURO: Alert and oriented 4. No focal sensory or strength deficits. Limitations: no limitations Course Vital Signs 10/10/20 10/10/20 10/10/20 14:40 18:16 18:28 Temperature 97.9 F 99.3 F 98.3 F Pulse Rate 49 L 53 L 51 L Respiratory 18 18 18 Rate Blood Pressure 101/34 112/51 125/62 O2 Sat by Pulse 97 94 L 95 Oximetry 10/10/20 10/10/20 10/10/20 18:38 19:08 20:01 Temperature 98.0 F 98.2 F Pulse Rate 63 17 L 52 L Respiratory 18 18 Rate Blood Pressure 128/69 140/76 O2 Sat by Pulse 93 L 94 L Oximetry 10/10/20 10/10/20 20:12 20:25 Temperature Pulse Rate 51 L Respiratory 18 Rate Blood Pressure O2 Sat by Pulse Oximetry Medical Decision Making - Medical Decision Making Based on the patient's presentation and physical exam, I do believe she will require blood transfusion. She was anemic and has sent symptomatic anemia, however would also like to rule out possible cardiac radiology this time. This requires this laboratory studies, troponin EKG, chest x-ray. One unit of packed red blood cells will be ordered. I spoke with Dr. Siddiqui's MLP, who sent the patient to the emergency department, who was in agreement with the plan and request that we obtain iron studies as well. These were added. I spoke patient regarding this and she was also in agreement with plan. Patient previously was worked up extensively for GI bleed which was negative. Patient's EKG was remarkable for sinus bradycardia, which has been seen previously. Laboratory studies were remarkable for acute anemia of 6.3 which is chronic. Type and screen sent. Patient is also hyperkalemic at 5.6, which was treated with nebulized albuterol as well as IV insulin with the D50 amp. Troponin is unremarkable. Remainder of the labs are unremarkable. She was hypoglycemic but repeat sugar was 90. Blood transfusion was ordered for the patient. Following blood transfusion, she is feeling improved, however we will admit patient to observation for follow-up with Dr. Siddiqui tomorrow and for monitoring of her anemia. She was in agreement with plan. The spoke with the admitting team, Dr. Witt. Dr. Siddiqui was consulted. Patient was admitted in fair condition. - Lab Data Result diagrams: 10/10/20 16:31 10/10/20 16:31 Lab Results 10/10/20 10/10/20 10/10/20 Range/Units 16:25 16:31 16:31 WBC 7.1 (3.8-10.6) k/uL RBC 1.85 L (3.80-5.40) m/uL Hgb 6.3 L* (11.4-16.0) gm/dL Hct 18.7 L* (34.0-46.0) % MCV 101.1 H (80.0-100.0) fL MCH 33.9 (25.0-35.0) pg MCHC 33.6 (31.0-37.0) g/dL RDW 26.3 H (11.5-15.5) % Plt Count 47 L (150-450) k/uL MPV 8.1 Neutrophils % (Manual) 59 % Band Neuts % (Manual) 2 % Lymphocytes % (Manual) 24 % Monocytes % (Manual) 6 % Eosinophils % (Manual) 7 % Metamyelocytes % 2 % Neutrophils # (Manual) 4.30 (1.3-7.7) k/uL Lymphocytes # (Manual) 1.70 (1.0-4.8) k/uL Monocytes # (Manual) 0.43 (0-1.0) k/uL Eosinophils # (Manual) 0.50 (0-0.7) k/uL Metamyelocytes # (Man) 0.14 H (0) k/uL Nucleated RBCs 0 (0-0) /100 WBC Polychromasia Present Hypochromasia Slight Poikilocytosis Slight Anisocytosis Marked Macrocytosis Marked A PT (9.0-12.0) sec INR (<1.2) APTT (22.0-30.0) sec Sodium 138 (137-145) mmol/L Potassium 5.6 H (3.5-5.1) mmol/L Chloride 106 (98-107) mmol/L Carbon Dioxide 23 (22-30) mmol/L Anion Gap 9 mmol/L BUN 41 H (7-17) mg/dL Creatinine 1.18 H (0.52-1.04) mg/dL Est GFR (CKD-EPI)AfAm 52 (>60 ml/min/1.73 sqM) Est GFR (CKD-EPI)NonAf 45 (>60 ml/min/1.73 sqM) Glucose 58 L (74-99) mg/dL Calcium 8.7 (8.4-10.2) mg/dL Magnesium 2.0 (1.6-2.3) mg/dL Total Bilirubin 0.2 (0.2-1.3) mg/dL AST 30 (14-36) U/L ALT 34 (4-34) U/L Alkaline Phosphatase 100 (38-126) U/L Lactate Dehydrogenase 523 (313-618) U/L Troponin I (0.000-0.034) ng/mL Total Protein 6.0 L (6.3-8.2) g/dL Albumin 3.4 L (3.5-5.0) g/dL Blood Type A Positive Blood Type Recheck A Pos Bld Type Recheck Status No Antibody Screen NEGATIVE Crossmatch See Detail Spec Expiration Date 10/13/2020232410/10/20 10/10/20 Range/Units 16:31 17:36 WBC (3.8-10.6) k/uL RBC (3.80-5.40) m/uL Hgb (11.4-16.0) gm/dL Hct (34.0-46.0) % MCV (80.0-100.0) fL MCH (25.0-35.0) pg MCHC (31.0-37.0) g/dL RDW (11.5-15.5) % Plt Count (150-450) k/uL MPV Neutrophils % (Manual) % Band Neuts % (Manual) % Lymphocytes % (Manual) % Monocytes % (Manual) % Eosinophils % (Manual) % Metamyelocytes % % Neutrophils # (Manual) (1.3-7.7) k/uL Lymphocytes # (Manual) (1.0-4.8) k/uL Monocytes # (Manual) (0-1.0) k/uL Eosinophils # (Manual) (0-0.7) k/uL Metamyelocytes # (Man) (0) k/uL Nucleated RBCs (0-0) /100 WBC Polychromasia Hypochromasia Poikilocytosis Anisocytosis Macrocytosis PT 10.2 (9.0-12.0) sec INR 0.9 (<1.2) APTT 20.3 L (22.0-30.0) sec Sodium (137-145) mmol/L Potassium (3.5-5.1) mmol/L Chloride (98-107) mmol/L Carbon Dioxide (22-30) mmol/L Anion Gap mmol/L BUN (7-17) mg/dL Creatinine (0.52-1.04) mg/dL Est GFR (CKD-EPI)AfAm (>60 ml/min/1.73 sqM) Est GFR (CKD-EPI)NonAf (>60 ml/min/1.73 sqM) Glucose (74-99) mg/dL Calcium (8.4-10.2) mg/dL Magnesium (1.6-2.3) mg/dL Total Bilirubin (0.2-1.3) mg/dL AST (14-36) U/L ALT (4-34) U/L Alkaline Phosphatase (38-126) U/L Lactate Dehydrogenase (313-618) U/L Troponin I <0.012 (0.000-0.034) ng/mL Total Protein (6.3-8.2) g/dL Albumin (3.5-5.0) g/dL Blood Type Blood Type Recheck Bld Type Recheck Status Antibody Screen Crossmatch Spec Expiration Date - EKG Data -: EKG Interpreted by Me EKG Comments: 12-lead Electrocardiogram Interpretation Note EKG was reviewed and interpreted by myself. 12-lead ECG performed at 1453 is interpreted by me as revealing sinus bradycardia at a rate of 47 beats per minute. Circle is normal. ID interval is 200 ms, QRS duration is 86 ms, QTc is 440 ms.. There were no ST or T wave abnormalities to suggest myocardial ischemia or injury. R wave progression across the precordium was satisfactory. By my interpretation this EKG is non-diagnostic for acute ischemia. Prior EKG's were reviewed and also showed sinus bradycardia similar to this EKG. Disposition Clinical Impression: Bradycardia, Myelodysplasia (myelodysplastic syndrome), Pancytopenia, Transfusion of blood during current hospitalisation Disposition: ADMITTED IP TO THIS HOSP Condition: Fair
[2020-10-10 16:44] LABS: Anisocytosis Marked; Hypochromasia Slight; MCH 33.9 pg (25.0-35.0); MCHC 33.6 g/dL (31.0-37.0); MCV 101.1 fL (80.0-100.0); Macrocytosis Marked; Mean Platelet Volume 8.1; Poikilocytosis Slight; RBC 1.85 m/uL (3.80-5.40); WBC 7.1 k/uL (3.8-10.6)
[2020-10-10 16:46] LABS: HCT 18.7 % (34.0-46.0); HGB 6.3 gm/dL (11.4-16.0); RDW 26.3 % (11.5-15.5)
--- NOTE | 2020-10-10 16:48 | XR ---
EXAMINATION TYPE: XR chest 1V portable DATE OF EXAM: 10/10/2020 COMPARISON: 12/10/2019 HISTORY: Weakness TECHNIQUE: FINDINGS: There is no heart failure nor confluent pneumonic infiltrate. Costophrenic angles are clear . There are chest leads. There are no hilar masses. IMPRESSION: No active cardiopulmonary disease. Normal heart. No change.
[2020-10-10 17:32] LABS: Albumin 3.4 g/dL (3.5-5.0); Calcium 8.7 mg/dL (8.4-10.2); Potassium 5.6 mmol/L (3.5-5.1); Total Bilirubin 0.2 mg/dL (0.2-1.3)
[2020-10-10 17:47] LABS: Band Neutrophils % 2 %; Metamyelocytes # (M) 0.14 k/uL (0); Metamyelocytes % 2 %; Monocytes # (M) 0.43 k/uL (0-1.0); Neutrophils % (M) 59 %; Nucleated Red Blood Cells 0 /100 WBC (0-0); Platelet Count 47 k/uL (150-450); Polychromasia Present; Total Cells Counted 100
[2020-10-10 18:03] LABS: INR 0.9 (<1.2); Partial Thromboplastin Time 20.3 sec (22.0-30.0); Prothrombin Time 10.2 sec (9.0-12.0)
[2020-10-10] MEDS ORDERED: DEXTROSE 50% SYRINGE 50 ML IVP STA (18:37)
[2020-10-10] MEDS ORDERED: ALBUTEROL NEBULIZED 2.5 MG/3 ML INHALATION STA (18:37)
[2020-10-10] MEDS ORDERED: INSULIN REGULAR 100 UNIT/ML VIAL (IV) IV ONE (18:37)
[2020-10-10] MEDS: ACETAMINOPHEN TAB 325 MG TAB PO PRN (20:31)
--- NOTE | 2020-10-10 20:35 | P.CONS ---
History of Present Illness - Reason for Consult Consult date: 10/10/20 Anemia Requesting physician: Johnathan Gutierrez - Chief Complaint symptomatic Anemia - History of Present Illness Mrs. Pinto presented to emergency today with complaints of symptomatic anemia, sent after cbc check in office. She unfortunetely has been requiring more frequent PRBC transfusions, being transfusion dependent. Last office visit comfort care options were discussed with the patient. Hemoglobin 6.3, Platelets 47K today. PRBC ordered. Phosphorus increase. Oncologic History Notes from outpatient chart: Ms Pinto is pleasant WF, presenting with rt sided breast cancer, detected on mammogram. She chose to have bilateral mastectomy with rt axillary dissection, which was done in 12/05. Her tumor was 2.5 cm, with no nodes involved, ER/TN +ve, and Her 2 -ve. She was seen in the office and started on Arimidex. She did not follow since mid 2010 onwards, and ran out of Arimidex in the summer of 2011. She called the office in 05/11 and restablished care. She also started back on Arimidex. She did not keep her appt in 12/09. She ran out of Arimidex about 2 weeks prior to her appt here on 03/31/13. She resumed it after that visit, and reported good compliance st her visit here on 11/04/13. The pt did not f/u here after 11/09. She continued Arimidex till mid 2015. She was seen back on 09/01/16 for a new issue. She had presented in 07/13 with pain on the insided of her LLE. She was found to have a superficial GSV thrombus, close to the SF junction, and was thus placed on XArelto. She reported multiple side effects, and was changed to Coumadin, which she tolerated well. In the interim, she was diagnosed with diastolic CHF in the fall of 2015, and had cataract surgery in and 01/11. She had labs and PET done to check for mets, which were negative. She got her doppler done in 10/12, showing some residual clot with recanalization. She stopped coumadin in late 09/12. She was advised to start back on Arimidex to complete 10 yrs, but did not do so as she could not afford it. Breast Next Testing in 09/12 was negative. She resumed Arimidex in 01/12. the patient did not follow-up in the office again after early 2017. She was seen in consult at [facility] in 11/15 with hemoglobin in the 6 range. He received blood transfusion and had GI workup which was negative. She was admitted again in 12/16 with recurrent anemia as well as thrombocytopenia. Laboratory workup was negative. The patient therefore underwent a bone marrow as patient biopsy on 12/19/19 revealing myelodysplasia with 25% of marrow cellularity. There was no increase in blasts , and cytogenetics and MDS FISH were negative. [facility] testing in 01/15 was also negative Telemedicine 02/16/20 Pt and daughter did not answer their phones As above The patient did not have any significant response to Procrit despite increasing the dose to 40,000 units every week. Dose was increased to 60,000 units on 03/15/20. She has, however, continued to require blood transfusions every 1-2 weeks. She had a hospital admission in late 05/19 for low Hgb She started Luspatercept on 05/31/20. She is s/p 1 cycle the patient missed cycle #2 as she was admitted to the hospital with marked weakness and shortness of breath. According to her daughter her hemoglobin was in the 3-4 range. She received 2 units PRBC. She was also diagnosed with UTI and treated for the same. he has continued to require blood transfusions every 1-2 weeks. She was admitted again on 07/27/20 because of hemoglobin of 5.7. She was discharged after transfusion. Dose was increased to 1.33 mg/kg on 08/17/19 as her transfusion requirements remained essentially the same, she was increased to the highest dose level, 1.75 mg/kg starting 09/27/20. she denied any fevers/chills/nausea/vomiting. she developed subcutaneous extravasation while receiving blood transfusion last week. She supposed to have a portogram on 10/04/20. She continues to have marked fatigue with very limited activity. She is mostly wheelchair or bedbound. Appetite is diminished but stable. She tends to bruise easily on her upper extremities especially the left arm which is being used for blood draws and transfusions. according to her daughter, she appears to be having fairly frequent UTIs, as well as occasional nosebleeds.. No blood in the stool or urine. Baseline shortness of breath and orthopnea are stable. Last seen on 09/27/[address] Siddiqui discussed the concern that the patient continues to have persistent anemia, requiring increase in dose level to the highest range starting 09/27/20. She is status post 1 cycle of the same. - Symptoms continue to be stable, in accordance with her persistent severe anemia. Hemoglobin that day was 6.3. 1 unit PRBC was ordered. - We discussed future treatment plans. Her current does level is the highest allowed. Patient was advised that according to protocol, she will receive treatment for a total of about 3-4 cycles. She will be reassessed in about 8 weeks, that is 9 weeks from starting this current dose level. If she has not had any significant response, then this will be discontinued. - In that situation her options would be to try a hypo methylating agent, that would have about a 50% chance of effectiveness, but would have higher risk of causing more severe anemia at least initially even if it is ultimately effective. Comfort care would be another option. Review of Systems All systems: negative Constitutional: Reports as per HPI Past Medical History Past Medical History: Atrial Fibrillation, Blood Disorder, Cancer, Diabetes Mellitus, Hyperlipidemia, Hypertension, Renal Disease, Sleep Apnea/CPAP/BIPAP, Thyroid Disorder Additional Past Medical History / Comment(s): Heart disease, ocular neuritis, refractory anemia, breast cancer, myelodyspasia, reblozyl injection every 3 weeks for anemia, had blood transfusion today Last Myocardial Infarction Date:: 2018 History of Any Multi-Drug Resistant Organisms: None Reported Past Surgical History: Appendectomy, Breast Surgery, Cholecystectomy, Heart Catheterization With Stent Additional Past Surgical History / Comment(s): bilateral masectomy, heart cath follow up in 2000 port-a-cath 2020 Past Anesthesia/Blood Transfusion Reactions: No Reported Reaction Additional Past Anesthesia/Blood Transfusion Reaction / Comm: Pt has received blood without reaction. Date of Last Stent Placement:: 1997 Past Psychological History: Depression Smoking Status: Former smoker Past Alcohol Use History: None Reported Past Drug Use History: None Reported - Past Family History Father Family Medical History: Coronary Artery Disease (CAD), Hypertension, Myocardial Infarction ([place]) Additional Family Medical History / Comment(s): Father at age 72 from coronary artery disease with history of diabetes Mother Family Medical History: Coronary Artery Disease (CAD) Additional Family Medical History / Comment(s): Mother at age 72 with history of coronary artery disease and diabetes. Sister(s) Additional Family Medical History / Comment(s): Patient has 1 sister with no major medical problems. Patient does not have. His. Patient has 1 daughter with no major medical problems. No history of breast cancer. Medications and Allergies Home Medications Medication Instructions Recorded Confirmed Type Insulin Detemir (Levemir) [Levemir] 50 unit SQ AC-BRKFST 01/01/14 10/10/20 History Spironolactone [Aldactone] 25 mg PO DAILY 01/01/14 10/10/20 History Levothyroxine Sodium [Synthroid] 75 mcg PO DAILY 01/20/19 10/10/20 History Metoprolol Tartrate [Lopressor] 50 mg PO BID 01/20/19 10/10/20 History Venlafaxine HCl [Effexor XR] 75 mg PO HS 01/20/19 10/10/20 History Venlafaxine HCl [Effexor XR] 150 mg PO DAILY 01/20/19 10/10/20 History lisinopriL [Zestril] 5 mg PO HS 01/20/19 10/10/20 History Amiodarone [Cordarone] 200 mg PO BID 05/03/19 10/10/20 History Cyanocobalamin [Vitamin B-12] 500 mcg PO DAILY 05/03/19 10/10/20 History Atorvastatin [Lipitor] 80 mg PO HS 07/26/20 10/10/20 History Ergocalciferol [Vitamin D2 (1250 1,250 mcg PO Q14D 07/26/20 10/10/20 History Mcg = 75879 Iu)] Gabapentin 600 mg PO QID 07/26/20 10/10/20 History Insulin Detemir (Levemir) [Levemir] 55 unit SQ HS 07/26/20 10/10/20 History metFORMIN HCL [Glucophage] 1,000 mg PO AC-BID 07/26/20 10/10/20 History Aspirin [Adult Low Dose Aspirin EC] 81 mg PO DAILY 10/02/20 10/10/20 History Allergies Allergy/AdvReac Type Severity Reaction Status Date / Time fluoxetine HCl [From Prozac] Allergy Intermediate Itching Verified 10/10/20 18:48 gluten Allergy Intermediate Nausea & Verified 10/10/20 18:48 Vomiting Sulfa (Sulfonamide Allergy Intermediate Itching Verified 10/10/20 18:48 Antibiotics) mercury (elemental) Allergy Rash/Hives Verified 10/10/20 18:48 Physical Exam Vitals: Vital Signs Temp Pulse Resp BP Pulse Ox 10/10/20 20:12 51 L 10/10/20 20:01 52 L 10/10/20 19:08 98.2 F 17 L 18 140/76 94 L 10/10/20 18:38 98.0 F 63 18 128/69 93 L 10/10/20 18:28 98.3 F 51 L 18 125/62 95 10/10/20 18:16 99.3 F 53 L 18 112/51 94 L 10/10/20 14:40 97.9 F 49 L 18 101/34 97 Intake and Output 10/10/20 10/10/20 10/10/20 06:59 14:59 22:59 Intake Total 0 Balance 0 Intake: Blood Product 0 Rc As-1 Unit 0 [id number] Other: Weight 117.934 kg - Constitutional General appearance: cooperative, no acute distress - EENT ENT: hard of hearing, NA/AT - Respiratory Respiratory: bilateral: diminished - Cardiovascular Rhythm: regularly irregular - Gastrointestinal General gastrointestinal: soft, tenderness - Integumentary Integumentary: pale - Neurologic Neurologic: CNII-XII intact - Psychiatric Psychiatric: A&O x's 3, appropriate affect, intact judgment & insight Results CBC & Chem 7: 10/11/20 04:43 10/11/20 04:43 Labs: Abnormal Lab Results - Last 24 Hours (Table) 10/10/20 10/10/20 10/10/20 Range/Units 16:25 16:31 16:31 RBC 1.85 L (3.80-5.40) m/uL Hgb 6.3 L* (11.4-16.0) gm/dL Hct 18.7 L* (34.0-46.0) % MCV 101.1 H (80.0-100.0) fL RDW 26.3 H (11.5-15.5) % Plt Count 47 L (150-450) k/uL Metamyelocytes # (Man) 0.14 H (0) k/uL Macrocytosis Marked A APTT (22.0-30.0) sec Potassium 5.6 H (3.5-5.1) mmol/L BUN 41 H (7-17) mg/dL Creatinine 1.18 H (0.52-1.04) mg/dL Glucose 58 L (74-99) mg/dL Total Protein 6.0 L (6.3-8.2) g/dL Albumin 3.4 L (3.5-5.0) g/dL Crossmatch See Detail 10/10/20 Range/Units 17:36 RBC (3.80-5.40) m/uL Hgb (11.4-16.0) gm/dL Hct (34.0-46.0) % MCV (80.0-100.0) fL RDW (11.5-15.5) % Plt Count (150-450) k/uL Metamyelocytes # (Man) (0) k/uL Macrocytosis APTT 20.3 L (22.0-30.0) sec Potassium (3.5-5.1) mmol/L BUN (7-17) mg/dL Creatinine (0.52-1.04) mg/dL Glucose (74-99) mg/dL Total Protein (6.3-8.2) g/dL Albumin (3.5-5.0) g/dL Crossmatch Assessment and Plan (1) Macrocytic anemia Current Visit: Yes Status: Acute Code(s): D53.9 - NUTRITIONAL ANEMIA, UNSPECIFIED SNOMED Code(s): 11498763 (2) Thrombocytopenia Current Visit: Yes Status: Acute Code(s): D69.6 - THROMBOCYTOPENIA, UNSPECIFIED SNOMED Code(s): 785940154 (3) Generalized weakness Current Visit: No Status: Acute Code(s): R53.1 - WEAKNESS SNOMED Code(s): 28320008 (4) Hyperkalemia Current Visit: No Status: Acute Code(s): E87.5 - HYPERKALEMIA SNOMED C ode(s): 30661661 (5) Myelodysplasia (myelodysplastic syndrome) Current Visit: Yes Status: Chronic Priority: Medium Code(s): D46.9 - MYELODYSPLASTIC SYNDROME, UNSPECIFIED SNOMED Code(s): 725221586 Plan: Assessment and Recommendations: Macrocytic Anemia and Thrombocytopenia: - COntinue to worsen - Transfusion dependent - Hold Anticoagualtion, NSAIDS, ASA with platelets less than 50K - Transfuse PRBC with Hemoglobin less than 7 MDS: - With worsening of disease clinically patient has been offered the option of COmfort measures only versus trialling hypomethylating agents, which could potentially intially cause worsening cytopenias Plan: - Recheck Iron and Nutritional values for potential replacement opportunities - PRBC hemoglobin less than 7 - CBC in am - Discussed with ER Nellie in detail
[2020-10-10] MEDS: FUROSEMIDE 20 MG TAB PO SCH (21:28)
[2020-10-10] MEDS: AMIODARONE 200 MG TAB PO SCH (21:28)
[2020-10-10] MEDS: ATORVASTATIN 80 MG TAB PO SCH (21:28)
[2020-10-10] MEDS: lisinopriL 5 MG TAB PO SCH (21:28)
[2020-10-10 22:50] LABS: Glucose,Whole Blood 90 mg/dL (75-99)
[2020-10-11] MEDS: GABAPENTIN 300 MG CAP PO PRN ×2 (03:17→21:32)
[2020-10-11 05:03] LABS: Anisocytosis Moderate; Basophils % (A) 0 %; Eosinophils # (A) 0.1 k/uL (0-0.7); Eosinophils % (A) 4 %; HCT 20.2 % (34.0-46.0); HGB 7.2 gm/dL (11.4-16.0); Lymphocytes # (A) 1.1 k/uL (1.0-4.8); Lymphocytes % (A) 26 %; MCH 34.6 pg (25.0-35.0); MCHC 35.6 g/dL (31.0-37.0); MCV 97.2 fL (80.0-100.0); Macrocytosis Moderate; Mean Platelet Volume 9.5; Monocytes # (A) 0.4 k/uL (0-1.0); Monocytes % (A) 9 %; Neutrophils # (A) 2.4 k/uL (1.3-7.7); Neutrophils % (A) 59 %; Platelet Count 32 k/uL (150-450); Poikilocytosis Slight; RBC 2.08 m/uL (3.80-5.40); RDW 23.6 % (11.5-15.5); WBC 4.1 k/uL (3.8-10.6)
[2020-10-11 05:34] LABS: Prothrombin Time 10.4 sec (9.0-12.0)
[2020-10-11 05:37] LABS: Partial Thromboplastin Time 19.2 sec (22.0-30.0)
[2020-10-11] MEDS: LEVOTHYROXINE 75 MCG TAB PO SCH (05:39)
[2020-10-11 07:12] LABS: Glucose,Whole Blood 158 mg/dL (75-99)
[2020-10-11] MEDS ORDERED: ASPIRIN 81 MG PO SCH (09:00)
[2020-10-11] MEDS: AMIODARONE 200 MG TAB PO SCH ×2 (09:32→21:23)
[2020-10-11] MEDS: FUROSEMIDE 40 MG TAB PO SCH (09:32)
[2020-10-11] MEDS: CYANOCOBALAMIN 500 MCG TAB PO SCH (09:32)
[2020-10-11] MEDS: SPIRONOLACTONE 25 MG TAB PO SCH (09:33)
[2020-10-11] MEDS: traMADol 50 MG TAB PO SCH (09:33)
[2020-10-11] MEDS: metFORMIN 500 MG TAB PO SCH ×2 (09:33→18:01)
[2020-10-11 09:56] LABS: African American GFR (CKD) 56.5 (60.0-200.0); Albumin 3.6 g/dL (3.80-4.90); Albumin/Globulin Ratio 1.89 (1.60-3.17); Anion Gap 9.1 mmol/L (4.00-12.00); BUN/Creat Ratio 39.09 Ratio (12.00-20.00); Calcium 8.6 mg/dL (8.7-10.3); Carbon Dioxide 23.9 mmol/L (21.6-31.8); Globulin 1.9 g/dL (1.6-3.3); Non-African American GFR(CKD) 48.7 (60.0-200.0); Potassium 4.8 mmol/L (3.5-5.5); Total Bilirubin 0.6 mg/dL (0.2-1.2); Total Protein 5.5 g/dL (6.2-8.2)
--- NOTE | 2020-10-11 10:29 | P.PN ---
Subjective Progress Note Date: 10/11/20 Principal diagnosis: Transfusion Dependent MDS Status post blood transfusion, Hemoglobin 7.2 Objective - Vital Signs Vital signs: Vital Signs Temp 98.9 F 10/11/20 05:03 Pulse 76 10/11/20 05:03 Resp 16 10/11/20 05:03 BP 132/62 10/11/20 05:03 Pulse Ox 90 L 10/11/20 05:03 Intake & Output 10/10/20 10/11/20 10/11/20 18:59 06:59 18:59 Intake Total 0 910 Balance 0 910 Weight 117.934 kg 117.934 kg Intake: Oral 600 Blood Product 0 310 Rc As-1 Unit 0 310 [id number] Other: Voiding Method Toilet Toilet # Voids 4 - Exam - Constitutional General appearance: cooperative, no acute distress - EENT ENT: hard of hearing, NA/AT - Respiratory Respiratory: bilateral: diminished - Cardiovascular Rhythm: regularly irregular - Gastrointestinal General gastrointestinal: soft, tenderness - Integumentary Integumentary: pale - Neurologic Neurologic: CNII-XII intact - Psychiatric Psychiatric: A&O x's 3, appropriate affect, intact judgment & insight - Labs CBC & Chem 7: 10/11/20 04:43 10/11/20 04:43 Labs: Abnormal Lab Results - Last 24 Hours (Table) 10/10/20 10/10/20 10/10/20 Range/Units 16:25 16:31 16:31 RBC 1.85 L (3.80-5.40) m/uL Hgb 6.3 L* (11.4-16.0) gm/dL Hct 18.7 L* (34.0-46.0) % MCV 101.1 H (80.0-100.0) fL RDW 26.3 H (11.5-15.5) % Plt Count 47 L (150-450) k/uL Metamyelocytes # (Man) 0.14 H (0) k/uL Macrocytosis Marked A APTT (22.0-30.0) sec Potassium 5.6 H (3.5-5.1) mmol/L BUN 41 H (7-17) mg/dL Creatinine 1.18 H (0.52-1.04) mg/dL Est GFR (CKD-EPI)AfAm (60.0-200.0) Est GFR (CKD-EPI)NonAf (60.0-200.0) BUN/Creatinine Ratio (12.00-20.00) Ratio Glucose 58 L (74-99) mg/dL POC Glucose (mg/dL) (75-99) mg/dL Calcium (8.7-10.3) mg/dL Total Protein 6.0 L (6.3-8.2) g/dL Albumin 3.4 L (3.5-5.0) g/dL Crossmatch See Detail 10/10/20 10/11/20 10/11/20 Range/Units 17:36 04:43 04:43 RBC 2.08 L (3.80-5.40) m/uL Hgb 7.2 L (11.4-16.0) gm/dL Hct 20.2 L (34.0-46.0) % MCV (80.0-100.0) fL RDW 23.6 H (11.5-15.5) % Plt Count 32 L (150-450) k/uL Metamyelocytes # (Man) (0) k/uL Macrocytosis APTT 20.3 L (22.0-30.0) sec Potassium (3.5-5.1) mmol/L BUN 43.0 H (7-17) mg/dL Creatinine (0.52-1.04) mg/dL Est GFR (CKD-EPI)AfAm 56.5 L (60.0-200.0) Est GFR (CKD-EPI)NonAf 48.7 L (60.0-200.0) BUN/Creatinine Ratio 39.09 H (12.00-20.00) Ratio Glucose (74-99) mg/dL POC Glucose (mg/dL) (75-99) mg/dL Calcium 8.6 L (8.7-10.3) mg/dL Total Protein 5.5 L (6.3-8.2) g/dL Albumin 3.60 L (3.5-5.0) g/dL Crossmatch 10/11/20 10/11/20 Range/Units 04:43 07:11 RBC (3.80-5.40) m/uL Hgb (11.4-16.0) gm/dL Hct (34.0-46.0) % MCV (80.0-100.0) fL RDW (11.5-15.5) % Plt Count (150-450) k/uL Metamyelocytes # (Man) (0) k/uL Macrocytosis APTT 19.2 L (22.0-30.0) sec Potassium (3.5-5.1) mmol/L BUN (7-17) mg/dL Creatinine (0.52-1.04) mg/dL Est GFR (CKD-EPI)AfAm (60.0-200.0) Est GFR (CKD-EPI)NonAf (60.0-200.0) BUN/Creatinine Ratio (12.00-20.00) Ratio Glucose (74-99) mg/dL POC Glucose (mg/dL) 158 H (75-99) mg/dL Calcium (8.7-10.3) mg/dL Total Protein (6.3-8.2) g/dL Albumin (3.5-5.0) g/dL Crossmatch Assessment and Plan (1) Macrocytic anemia Current Visit: Yes Status: Acute Code(s): D53.9 - NUTRITIONAL ANEMIA, UNSPECIFIED SNOMED Code(s): 44927241 (2) Thrombocytopenia Current Visit: Yes Status: Acute Code(s): D69.6 - THROMBOCYTOPENIA, UNSPECIFIED SNOMED Code(s): 171763765 (3) Generalized weakness Current Visit: No Status: Acute Code(s): R53.1 - WEAKNESS SNOMED Code(s): 03625977 (4) Hyperkalemia Current Visit: No Status: Acute Code(s): E87.5 - HYPERKALEMIA SNOMED Code(s): 91123702 (5) Myelodysplasia (myelodysplastic syndrome) Current Visit: Yes Status: Chronic Priority: Medium Code(s): D46.9 - MYELODYSPLASTIC SYNDROME, UNSPECIFIED SNOMED Code(s): 333095413 Plan: Assessment and Recommendations: Macrocytic Anemia and Thrombocytopenia: - COntinue to worsen - Transfusion dependent - Hold Anticoagualtion, NSAIDS, ASA with platelets less than 50K - Transfuse PRBC with Hemoglobin less than 7 MDS: - With worsening of disease clinically patient has been offered the option of COmfort measures only versus trialling hypomethylating agents, which could potentially intially cause worsening cytopenias Plan: - PRBC hemoglobin less than 7 - CBC in am - Add FOlic acid daily and at discharge - WIll need CBC in office wednesday to assess for transfusion OK for DC from our standpoint Physician Attest: I have completed the full history and physical and agree with above dictation, dictated as a ascribe
[2020-10-11] MEDS: FOLIC ACID 1 MG TAB PO SCH (11:03)
[2020-10-11 11:37] LABS: Glucose,Whole Blood 182 mg/dL (75-99)
--- NOTE | 2020-10-11 13:23 | P.HPIM ---
History of Present Illness H&P Date: 10/11/20 History of present illness This is a 75-year-old patient of Dr. Palacios with past medical history of right- sided breast cancer status post bilateral mastectomy in 2008, hypertension, hyperlipidemia, paroxysmal atrial fibrillation, diabetes mellitus type 2, fibromyalgia, generalized anxiety disorder and recurrent depression, obstructive sleep apnea with CPAP, gastroesophageal reflux disease, chronic kidney disease stage III, myelodysplastic syndrome with pancytopenia, chronic anemia requiring blood transfusions every 1-2 weeks. Patient was brought into [facility] emergency center for evaluation. Patient was apparently at oncology office was found to be acutely anemic with hemoglobin of 6.3 and was sent in for transfusion and admission to the hospital. Patient does have significant bruising which is old to the right anterior chest port site. She states this was put in one month ago. She states she does have some shortness of breath when she walks long distance or walks quickly. She states her normal hemoglobin is between 8 and 12 and it has been 8 within the last month. She denies having any chest pain or shortness of breath. No abdominal pain. No nausea or diarrhea. No bloody stools. Patient was found to be afebrile, heart rate 49, blood pressure 101/34, pulse ox 97% on room air. Blood work revealed hemoglobin of 6.3, WBC 7.1 and platelets of 47. Sodium 138, potassium 5.6, chloride 106, CO2 23, BUN 41 and creatinine 1.18. Blood sugar 58. EKG was a sinus bradycardia with no acute ST changes. Troponin was negative. Liver function tests were normal. Review Of Systems: Constitutional: No fever, no chills, no night sweats. No weight change. Reports weakness and fatigue no lethargy. No daytime sleepiness. EENT: No headache. No blurred vision or double vision, no loss of vision. No loss of Hearing, no ringing in the ears, no dizziness. No nasal drainage or congestion. No epistaxis. No sore throat. Lungs: No shortness of breath, cough, no sputum production. No wheezing. Shortness of breath with exertion. Cardiovascular: No chest pain, no lower extremity edema. No palpitations. No paroxysmal nocturnal dyspnea. No orthopnea. Reports lightheadedness and dizziness. No syncopal episodes. Abdominal: no abdominal discomfort. No nausea, vomiting. no diarrhea. No constipation. No bloody or tarry stools. no loss of appetite. Genitourinary: No dysuria, increased frequency, urgency. No urinary retention. Musculoskeletal: No myalgias. No muscle weakness, no gait dysfunction, no frequent falls. No back pain. No neck pain. Integumentary: No wounds, no lesions. No rash or pruritus. No unusual bruising. No change in hair or nails. Neurologic: No aphasia. No facial droop. No change in mentation. No head injury. No headache. No paralysis. No paresthesia. Psychiatric: Reports depression. Reports anxiety. No mood swings. Endocrine: No abnormal blood sugars. No weight change. No excessive sweating or thirst. Social history: Previous smoker of 4 packs per day for 20 years and quit approximate 20 years ago. Denies any marijuana versus drug use. No alcohol use. She is at home with her daughter. Utilizes a CPAP and nebulizer. Patient is . Family history: Father at 72 from coronary artery disease with history of diabetes, mother at the age of 72 from coronary artery disease with history of diabetes and breast cancer, sister with no major medical issues other than hypertension, one daughter who has hypertension. Physical examination General Appearance: Alert, cooperative, no distress, appears stated age. Neck HEENT: Supple, no lymphadenopathy, no thyroid enlargement, no carotid bruits. Lungs: Clear to auscultation without crackles or wheezes no rhonchi, no deformity. Chest Wall: Chest wall normal expansion with deep inspiration no tenderness and no deformity was found on exam, no costochondral pain or discomfort. Heart: Regular rate and rhythm, S1, S2 normal, no murmur, rub or gallop. Back: Symmetric, no curvature, ROM normal, no CVA tenderness. Abdomen: Soft, non-tender, no rebound or rigidity, no hepatosplenomegaly. Extremities: Extremities normal, atraumatic, no cyanosis or edema. Pulses: 2+ and symmetric. Skin: Skin color, texture, tugor normal, no rashes or lesions. Neurologic: Alert oriented x3 cranial nerves II through XII intact, no motor deficit, no abnormal balance or gait Assessment and plan 1. Severe anemia. Status post blood transfusion of 1 unit packed RBC. Patient has chronic anemia. Hematology consult. Repeat hemoglobin this afternoon and in the morning and transfuse as appropriate. 2. History of myelodysplastic syndrome. Oncology consult appreciated. Monitor CBC. 3. Hyperkalemia. Continue to monitor potassium. 4. Chronic kidney disease stage III. Avoid neurotoxins. Monitor renal function daily. Continue lisinopril, Lasix and Aldactone 5. Weakness. Consult PT. 6. Diabetes mellitus type 2. Continue metformin 1000 mg twice daily, NovoLog sliding scale. Continue Levemir at half normal home dose with 25 units at breakfast and 27 units at bedtime. 7. Hypertension. Continue amiodarone 200 mg twice daily, Lasix, lisinopril 5 mg at bedtime, metoprolol 30 mg twice daily. 8. Paroxysmal atrial fibrillation. Continue amiodarone 200 mg by mouth twice a day, metoprolol 50 mg twice daily 9. Hyperlipidemia. Atorvastatin 80 mg by mouth at bedtime 10. Hypothyroidism. Levothyroxine 75 MCG's by mouth daily 11. Fibromyalgia, stable. Gabapentin 600 mg by mouth every 5 hours, continue Ultram 50 mg by mouth daily 12. History of breast cancer status post bilateral mastectomy. 13. Generalized anxiety disorder recurrent depression. Continue Effexor 75 mg by mouth at bedtime, 150mg by mouth daily 14. Obstructive sleep apnea. Continue CPAP. 15. GERD and GI prophylaxis. Protonix. 16. DVT prophylaxis. SCDs. CODE STATUS: No code Discharge plan Return home Impression and plan of care have been directed as dictated by the signing physi cian. Abril Riley nurse practitioner acting as scribe for signing physician. Past Medical History Past Medical History: Atrial Fibrillation, Blood Disorder, Cancer, Diabetes Mellitus, Hyperlipidemia, Hypertension, Renal Disease, Sleep Apnea/CPAP/BIPAP, Thyroid Disorder Additional Past Medical History / Comment(s): Heart disease, ocular neuritis, refractory anemia, breast cancer, myelodyspasia, reblozyl injection every 3 weeks for anemia, had blood transfusion today Last Myocardial Infarction Date:: 2018 History of Any Multi-Drug Resistant Organisms: None Reported Past Surgical History: Appendectomy, Breast Surgery, Cholecystectomy, Heart Catheterization With Stent Additional Past Surgical History / Comment(s): bilateral masectomy, heart cath follow up in 2000 port-a-cath 2020 Past Anesthesia/Blood Transfusion Reactions: No Reported Reaction Additional Past Anesthesia/Blood Transfusion Reaction / Comment(s): Pt has received blood without reaction. Date of Last Stent Placement:: 1998 Past Psychological History: Depression Smoking Status: Former smoker Past Alcohol Use History: None Reported Past Drug Use History: None Reported - Past Family History Father Family Medical History: Coronary Artery Disease (CAD), Hypertension, Myocardial Infarction ([place]) Additional Family Medical History / Comment(s): Father at age 72 from coronary artery disease with history of diabetes Mother Family Medical History: Coronary Artery Disease (CAD) Additional Family Medical History / Comment(s): Mother at age 72 with history of coronary artery disease and diabetes. Sister(s) Additional Family Medical History / Comment(s): Patient has 1 sister with no major medical problems. Patient does not have. His. Patient has 1 daughter with no major medical problems. No history of breast cancer. Medications and Allergies Home Medications Medication Instructions Recorded Confirmed Type Insulin Detemir (Levemir) [Levemir] 50 unit SQ [id number] 01/01/14 10/10/20 History Spironolactone [Aldactone] 25 mg PO DAILY 01/01/14 10/10/20 History Levothyroxine Sodium [Synthroid] 75 mcg PO DAILY 01/20/19 10/10/20 History Metoprolol Tartrate [Lopressor] 50 mg PO BID 01/20/19 10/10/20 History Venlafaxine HCl [Effexor XR] 75 mg PO HS 01/20/19 10/10/20 History Venlafaxine HCl [Effexor XR] 150 mg PO DAILY 01/20/19 10/10/20 History lisinopriL [Zestril] 5 mg PO HS 01/20/19 10/10/20 History Amiodarone [Cordarone] 200 mg PO BID 05/03/19 10/10/20 History Cyanocobalamin [Vitamin B-12] 500 mcg PO DAILY 05/03/19 10/10/20 History Atorvastatin [Lipitor] 80 mg PO HS 07/26/20 10/10/20 History Ergocalciferol [Vitamin D2 (1250 1,250 mcg PO Q14D 07/26/20 10/10/20 History Mcg = 00607 Iu)] Gabapentin 600 mg PO QID 07/26/20 10/10/20 History Insulin Detemir (Levemir) [Levemir] 55 unit SQ HS 07/26/20 10/10/20 History metFORMIN HCL [Glucophage] 1,000 mg PO AC-BID 07/26/20 10/10/20 History Aspirin [Adult Low Dose Aspirin EC] 81 mg PO DAILY 10/02/20 10/10/20 History Allergies Allergy/AdvReac Type Severity Reaction Status Date / Time fluoxetine HCl [From Prozac] Allergy Intermediate Itching Verified 10/10/20 18:48 gluten Allergy Intermediate Nausea & Verified 10/10/20 18:48 Vomiting Sulfa (Sulfonamide Allergy Intermediate Itching Verified 10/10/20 18:48 Antibiotics) mercury (elemental) Allergy Rash/Hives Verified 10/10/20 18:48 Physical Exam Vitals: Vital Signs Temp Pulse Pulse Resp BP BP Pulse Ox 10/11/20 05:03 98.9 F 76 16 132/62 90 L 10/11/20 03:45 97.9 F 80 18 160/72 94 L 10/10/20 21:54 97.5 F L 66 18 143/73 96 10/10/20 21:20 68 18 10/10/20 21:00 97.5 F L 68 16 146/73 96 10/10/20 20:25 18 10/10/20 20:12 51 L 10/10/20 20:01 52 L 10/10/20 19:08 98.2 F 17 L 18 140/76 94 L 10/10/20 18:38 98.0 F 63 18 128/69 93 L 10/10/20 18:28 98.3 F 51 L 18 125/62 95 10/10/20 18:16 99.3 F 53 L 18 112/51 94 L 10/10/20 14:40 97.9 F 49 L 18 101/34 97 Intake and Output 10/10/20 10/11/20 10/11/20 22:59 06:59 14:59 Intake Total 310 600 Balance 310 600 Intake: Oral 600 Blood Product 310 Rc As-1 Unit 310 [id number] Other: Voiding Method Toilet # Voids 4 Weight 117.934 kg Results CBC & Chem 7: 10/11/20 04:43 10/11/20 04:43 Labs: Abnormal Lab Results - Last 24 Hours (Table) 10/10/20 10/10/20 10/10/20 Range/Units 16:25 16:31 16:31 RBC 1.85 L (3.80-5.40) m/uL Hgb 6.3 L* (11.4-16.0) gm/dL Hct 18.7 L* (34.0-46.0) % MCV 101.1 H (80.0-100.0) fL RDW 26.3 H (11.5-15.5) % Plt Count 47 L (150-450) k/uL Metamyelocytes # (Man) 0.14 H (0) k/uL Macrocytosis Marked A APTT (22.0-30.0) sec Potassium 5.6 H (3.5-5.1) mmol/L BUN 41 H (7-17) mg/dL Creatinine 1.18 H (0.52-1.04) mg/dL Glucose 58 L (74-99) mg/dL POC Glucose (mg/dL) (75-99) mg/dL Total Protein 6.0 L (6.3-8.2) g/dL Albumin 3.4 L (3.5-5.0) g/dL Crossmatch See Detail 10/10/20 10/11/20 10/11/20 Range/Units 17:36 04:43 04:43 RBC 2.08 L (3.80-5.40) m/uL Hgb 7.2 L (11.4-16.0) gm/dL Hct 20.2 L (34.0-46.0) % MCV (80.0-100.0) fL RDW 23.6 H (11.5-15.5) % Plt Count 32 L (150-450) k/uL Metamyelocytes # (Man) (0) k/uL Macrocytosis APTT 20.3 L 19.2 L (22.0-30.0) sec Potassium (3.5-5.1) mmol/L BUN (7-17) mg/dL Creatinine (0.52-1.04) mg/dL Glucose (74-99) mg/dL POC Glucose (mg/dL) (75-99) mg/dL Total Protein (6.3-8.2) g/dL Albumin (3.5-5.0) g/dL Crossmatch 10/11/20 Range/Units 07:11 RBC (3.80-5.40) m/uL Hgb (11.4-16.0) gm/dL Hct (34.0-46.0) % MCV (80.0-100.0) fL RDW (11.5-15.5) % Plt Count (150-450) k/uL Metamyelocytes # (Man) (0) k/uL Macrocytosis APTT (22.0-30.0) sec Potassium (3.5-5.1) mmol/L BUN (7-17) mg/dL Creatinine (0.52-1.04) mg/dL Glucose (74-99) mg/dL POC Glucose (mg/dL) 158 H (75-99) mg/dL Total Protein (6.3-8.2) g/dL Albumin (3.5-5.0) g/dL Crossmatch Thrombosis Risk Factor Assmnt - Choose All That Apply Any of the Below Risk Factors Present?: Yes Each Factor Represents 1 point: Obesity (BMI >25) Other Risk Factors: Yes Each Risk Factor Represents 3 Points: Age 75 years or older Other congenital or acquired thrombophilia - If yes, enter type in comment: No Thrombosis Risk Factor Assessment Total Risk Factor Score: 4 Thrombosis Risk Factor Assessment Level: Moderate Risk
[2020-10-11 17:08] LABS: % Iron Saturation 67.32 (12.00-45.00)
[2020-10-11 17:12] LABS: Glucose,Whole Blood 127 mg/dL (75-99)
[2020-10-11 17:42] LABS: Ferritin 954.3 ng/mL (10.0-291.0)
[2020-10-11] MEDS: INSULIN ASPART (NovoLOG) 100 UNIT/ML VIAL SQ SCH ×2 (17:55→21:23)
[2020-10-11 20:35] LABS: Glucose,Whole Blood 195 mg/dL (75-99)
[2020-10-11] MEDS ORDERED: SENNOSIDES-DOCUSATE SODIUM 1 EACH TAB PO SCH (21:00)
[2020-10-11] MEDS ORDERED: VENLAFAXINE HCL ER 75 MG CAP PO SCH (21:00)
[2020-10-11] MEDS ORDERED: INSULIN DETEMIR (LEVEMIR) 100 UNIT/ML SYR SQ SCH (21:00)
[2020-10-11] MEDS: FUROSEMIDE 20 MG TAB PO SCH (21:23)
[2020-10-11] MEDS: ATORVASTATIN 80 MG TAB PO SCH (21:23)
[2020-10-11] MEDS: METOPROLOL TARTRATE 50 MG TAB PO SCH (21:25)
[2020-10-11] MEDS: lisinopriL 5 MG TAB PO SCH (21:25)
[2020-10-11] MEDS: ACETAMINOPHEN TAB 325 MG TAB PO PRN (22:50)
[2020-10-12] MEDS: LEVOTHYROXINE 75 MCG TAB PO SCH (05:54)
[2020-10-12] MEDS ORDERED: INSULIN DETEMIR (LEVEMIR) 100 UNIT/ML SYR SQ SCH (07:30)
[2020-10-12 07:57] LABS: Glucose,Whole Blood 140 mg/dL (75-99)
[2020-10-12] MEDS: CYANOCOBALAMIN 500 MCG TAB PO SCH (08:10)
[2020-10-12] MEDS: metFORMIN 500 MG TAB PO SCH (08:10)
[2020-10-12] MEDS: SPIRONOLACTONE 25 MG TAB PO SCH (08:10)
[2020-10-12] MEDS: AMIODARONE 200 MG TAB PO SCH (08:10)
[2020-10-12] MEDS: FUROSEMIDE 40 MG TAB PO SCH (08:10)
[2020-10-12] MEDS: METOPROLOL TARTRATE 50 MG TAB PO SCH (08:10)
[2020-10-12] MEDS: FOLIC ACID 1 MG TAB PO SCH (08:10)
[2020-10-12] MEDS: INSULIN ASPART (NovoLOG) 100 UNIT/ML VIAL SQ SCH (08:11)
[2020-10-12] MEDS ORDERED: VENLAFAXINE HCL ER 150 MG CAP PO SCH (09:00)
[2020-10-12 10:55] LABS: Anisocytosis Moderate; HGB 7.4 gm/dL (11.4-16.0); MCH 34.6 pg (25.0-35.0); MCHC 35.1 g/dL (31.0-37.0); MCV 98.6 fL (80.0-100.0); Macrocytosis Moderate; Mean Platelet Volume 9.1; Poikilocytosis Slight; RBC 2.13 m/uL (3.80-5.40); RDW 23.6 % (11.5-15.5); WBC 3.5 k/uL (3.8-10.6)
[2020-10-12 11:02] LABS: Platelet Count 40 k/uL (150-450)
[2020-10-12] MEDS: traMADol 50 MG TAB PO SCH (11:51)
[2020-10-12 12:01] LABS: Glucose,Whole Blood 145 mg/dL (75-99)
[2020-10-12 12:02] VITALS: BP 109/61; PULSE 57; RESP 14; TEMP 97.8
--- NOTE | 2020-10-12 12:24 | P.DS ---
Providers Date of admission: 10/10/20 18:24 Expected date of discharge: 10/12/20 Attending physician: Floresita Witt MD Consults: 10/10/20 18:23 Consult Physician Stat Consulting Provider: Saroj Siddiqui Consult Reason/Comments: myelodysplastic syndrome Do you want consulting provider notified?: Already Contacted Primary care physician: Jaxon Palacios [facility] Course: History of present illness This is a 75-year-old patient of Dr. Palacios with past medical history of right- sided breast cancer status post bilateral mastectomy in 2008, hypertension, hyperlipidemia, paroxysmal atrial fibrillation, diabetes mellitus type 2, fibromyalgia, generalized anxiety disorder and recurrent depression, obstructive sleep apnea with CPAP, gastroesophageal reflux disease, chronic kidney disease stage III, myelodysplastic syndrome with pancytopenia, chronic anemia requiring blood transfusions every 1-2 weeks. Patient was brought into [facility] emergency center for evaluation. Patient was apparently at oncology office was found to be acutely anemic with hemoglobin of 6.3 and was sent in for transfusion and admission to the hospital. Patient does have significant bruising which is old to the right anterior chest port site. She states this was put in one month ago. She states she does have some shortness of breath when she walks long distance or walks quickly. She states her normal hemoglobin is between 8 and 12 and it has been 8 within the last month. She denies having any chest pain or shortness of breath. No abdominal pain. No nausea or diarrhea. No bloody stools. Patient was found to be afebrile, heart rate 49, blood pressure 101/34, pulse ox 97% on room air. Blood work revealed hemoglobin of 6.3, WBC 7.1 and platelets of 47. Sodium 138, potassium 5.6, chloride 106, CO2 23, BUN 41 and creatinine 1.18. Blood sugar 58. EKG was a sinus bradycardia with no acute ST changes. Troponin was negative. Liver function tests were normal. Review Of Systems: Constitutional: No fever, no chills, no night sweats. No weight change. Reports weakness and fatigue no lethargy. No daytime sleepiness. EENT: No headache. No blurred vision or double vision, no loss of vision. No loss of Hearing, no ringing in the ears, no dizziness. No nasal drainage or congestion. No epistaxis. No sore throat. Lungs: No shortness of breath, cough, no sputum production. No wheezing. Shortness of breath with exertion. Cardiovascular: No chest pain, no lower extremity edema. No palpitations. No paroxysmal nocturnal dyspnea. No orthopnea. Reports lightheadedness and dizziness. No syncopal episodes. Abdominal: no abdominal discomfort. No nausea, vomiting. no diarrhea. No constipation. No bloody or tarry stools. no loss of appetite. Genitourinary: No dysuria, increased frequency, urgency. No urinary retention. Musculoskeletal: No myalgias. No muscle weakness, no gait dysfunction, no frequent falls. No back pain. No neck pain. Integumentary: No wounds, no lesions. No rash or pruritus. No unusual bruising. No change in hair or nails. Neurologic: No aphasia. No facial droop. No change in mentation. No head injury. No headache. No paralysis. No paresthesia. Psychiatric: Reports depression. Reports anxiety. No mood swings. Endocrine: No abnormal blood sugars. No weight change. No excessive sweating or thirst. Social history: Previous smoker of 4 packs per day for 20 years and quit approximate 20 years ago. Denies any marijuana versus drug use. No alcohol use. She is at home with her daughter. Utilizes a CPAP and nebulizer. Patient is . Family history: Father at 72 from coronary artery disease with history of diabetes, mother at the age of 72 from coronary artery disease with history of diabetes and breast cancer, sister with no major medical issues other than hypertension, one daughter who has hypertension. Physical examination General Appearance: Alert, cooperative, no distress, appears stated age. Neck HEENT: Supple, no lymphadenopathy, no thyroid enlargement, no carotid bruits. Lungs: Clear to auscultation without crackles or wheezes no rhonchi, no deformity. Chest Wall: Chest wall normal expansion with deep inspiration no tenderness and no deformity was found on exam, no costochondral pain or discomfort. Heart: Regular rate and rhythm, S1, S2 normal, no murmur, rub or gallop. Back: Symmetric, no curvature, ROM normal, no CVA tenderness. Abdomen: Soft, non-tender, no rebound or rigidity, no hepatosplenomegaly. Extremities: Extremities normal, atraumatic, no cyanosis or edema. Pulses: 2+ and symmetric. Skin: Skin color, texture, tugor normal, no rashes or lesions. Neurologic: Alert oriented x3 cranial nerves II through XII intact, no motor deficit, no abnormal balance or gait Assessment and plan 1. Severe anemia. Status post blood transfusion of 1 unit packed RBC. Patient has chronic anemia. Hematology consult. Repeat hemoglobin this afternoon and in the morning and transfuse as appropriate. 2. History of myelodysplastic syndrome. Oncology consult appreciated. Monitor CBC. 3. Hyperkalemia. Continue to monitor potassium. 4. Chronic kidney disease stage III. Avoid neurotoxins. Monitor renal function daily. Continue lisinopril, Lasix and Aldactone 5. Weakness. Consult PT. 6. Diabetes mellitus type 2. Continue metformin 1000 mg twice daily, NovoLog sliding scale. Continue Levemir at half normal home dose with 25 units at breakfast and 27 units at bedtime. 7. Hypertension. Continue amiodarone 200 mg twice daily, Lasix, lisinopril 5 mg at bedtime, metoprolol 30 mg twice daily. 8. Paroxysmal atrial fibrillation. Continue amiodarone 200 mg by mouth twice a day, metoprolol 50 mg twice daily 9. Hyperlipidemia. Atorvastatin 80 mg by mouth at bedtime 10. Hypothyroidism. Levothyroxine 75 MCG's by mouth daily 11. Fibromyalgia, stable. Gabapentin 600 mg by mouth every 5 hours, continue Ultram 50 mg by mouth daily 12. History of breast cancer status post bilateral mastectomy. 13. Generalized anxiety disorder recurrent depression. Continue Effexor 75 mg by mouth at bedtime, 150mg by mouth daily 14. Obstructive sleep apnea. Continue CPAP. 15. GERD and GI prophylaxis. Protonix. 16. DVT prophylaxis. SCDs. CODE STATUS: No code Discharge plan Return home Impression and plan of care have been directed as dictated by the signing physician. Abril Riley nurse practitioner acting as scribe for signing physician. Patient Condition at Discharge: Fair Plan - Discharge Summary Discharge Rx Participant: No New Discharge Prescriptions: New Folic Acid 1 mg PO DAILY tab Continue Spironolactone [Aldactone] 25 mg PO DAILY Metoprolol Tartrate [Lopressor] 50 mg PO BID Venlafaxine HCl [Effexor XR] 150 mg PO DAILY Venlafaxine HCl [Effexor XR] 75 mg PO HS lisinopriL [Zestril] 5 mg PO HS Levothyroxine Sodium [Synthroid] 75 mcg PO DAILY Cyanocobalamin [Vitamin B-12] 500 mcg PO DAILY Amiodarone [Cordarone] 200 mg PO BID Ergocalciferol [Vitamin D2 (1250 Mcg = 02411 Iu)] 1,250 mcg PO Q14D Aspirin [Adult Low Dose Aspirin EC] 81 mg PO DAILY metFORMIN HCL [Glucophage] 1,000 mg PO AC-BID Atorvastatin [Lipitor] 80 mg PO HS Gabapentin 600 mg PO QID Changed Insulin Detemir (Levemir) [Levemir] 37 unit SQ AC-BRKFST #0 Insulin Detemir (Levemir) [Levemir] 41 unit SQ HS #0 Discharge Medication List Spironolactone [Aldactone] 25 mg PO DAILY 01/01/14 [History] Levothyroxine Sodium [Synthroid] 75 mcg PO DAILY 01/20/19 [History] Metoprolol Tartrate [Lopressor] 50 mg PO BID 01/20/19 [History] Venlafaxine HCl [Effexor XR] 75 mg PO HS 01/20/19 [History] Venlafaxine HCl [Effexor XR] 150 mg PO DAILY 01/20/19 [History] lisinopriL [Zestril] 5 mg PO HS 01/20/19 [History] Amiodarone [Cordarone] 200 mg PO BID 05/03/19 [History] Cyanocobalamin [Vitamin B-12] 500 mcg PO DAILY 05/03/19 [History] Atorvastatin [Lipitor] 80 mg PO HS 07/26/20 [History] Ergocalciferol [Vitamin D2 (1250 Mcg = 01955 Iu)] 1,250 mcg PO Q14D 07/26/20 [History] Gabapentin 600 mg PO QID 07/26/20 [History] metFORMIN HCL [Glucophage] 1,000 mg PO AC-BID 07/26/20 [History] Aspirin [Adult Low Dose Aspirin EC] 81 mg PO DAILY 10/02/20 [History] Folic Acid 1 mg PO DAILY tab 10/12/20 [Rx] Insulin Detemir (Levemir) [Levemir] 37 unit SQ AC-BRKFST #0 10/12/20 [Rx] Insulin Detemir (Levemir) [Levemir] 41 unit SQ HS #0 10/12/20 [Rx] Follow up Appointment(s)/Referral(s): Jaxon Palacios MD [Primary Care Provider] - 1 Week Saroj Siddiqui MD [STAFF PHYSICIAN] - 1 Week Activity/Diet/Wound Care/Special Instructions: Insulin doses decreased by 25% due to blood sugar is running on the low side in the hospital. If full/normal diet resumed at home, may resume home dosing as before.
[2020-10-26] MEDS ORDERED: ERGOCALCIFEROL 1,250 MCG (50,000 IU) CAPSULE PO SCH (09:00)
== END 2020-10-12 14:51 | disposition home or self-care (01) | DRG 812 ==
LOC: EC 14:33 → 5NMEDONC 18:24
PROVIDERS: ADMIT Internal Medicine; ATTEND Internal Medicine
PROC: 30233N1 Transfusion of Nonautologous Red Blood Cells into Peripheral Vein, Percutaneous Approach (ICD-10-PCS; principal; 2020-10-10)
DX: D46.9 Myelodysplastic syndrome, unspecified (principal); I50.32 Chronic diastolic (congestive) heart failure; I13.0 Hypertensive heart and chronic kidney disease with heart failure and stage 1 through stage 4 chronic kidney disease, or unspecified chronic kidney disease; F33.9 Major depressive disorder, recurrent, unspecified; D61.818 Other pancytopenia; I48.0 Paroxysmal atrial fibrillation; E78.5 Hyperlipidemia, unspecified; E87.5 Hyperkalemia; E03.9 Hypothyroidism, unspecified; E11.22 Type 2 diabetes mellitus with diabetic chronic kidney disease; F41.1 Generalized anxiety disorder; G47.33 Obstructive sleep apnea (adult) (pediatric); N18.30 Chronic kidney disease, stage 3 unspecified; M79.7 Fibromyalgia; C50.911 Malignant neoplasm of unspecified site of right female breast; Z92.3 Personal history of irradiation; Z92.21 Personal history of antineoplastic chemotherapy; Z79.890 Hormone replacement therapy; Z79.4 Long term (current) use of insulin; Z79.899 Other long term (current) drug therapy; Z79.82 Long term (current) use of aspirin; Z88.2 Allergy status to sulfonamides; Z88.8 Allergy status to other drugs, medicaments and biological substances; Z90.13 Acquired absence of bilateral breasts and nipples; Z95.5 Presence of coronary angioplasty implant and graft; Z87.891 Personal history of nicotine dependence; Z82.49 Family history of ischemic heart disease and other diseases of the circulatory system; I25.2 Old myocardial infarction; Z17.0 Estrogen receptor positive status [ER+]; Z99.3 Dependence on wheelchair; Z74.01 Bed confinement status
CPT/HCPCS: 36415; 71045; 80053; 82306; 82607; 82728; 82746; 83540; 83550; 83615; 83735; 83921; 84484; 85025; 85027; 85610; 85730; 86850; 86900; 86901; 86920; 93005; 99285

== ENCOUNTER 2020-10-23 20:58 | Inpatient (IN) | payer MEDICARE ==
[2020-10-23] MEDS ORDERED: SODIUM CHLORIDE 0.9% 1,000 ML IV STA ×2 (21:21)
[2020-10-23] MEDS ORDERED: SODIUM CHLORIDE 0.9% 500 ML 500 ML IV STA (21:21)
[2020-10-23 21:47] LABS: Anisocytosis Marked; Basophils % (A) 0 %; Eosinophils # (A) 0.1 k/uL (0-0.7); Eosinophils % (A) 3 %; Lymphocytes # (A) 1.6 k/uL (1.0-4.8); Lymphocytes % (A) 31 %; MCH 34.5 pg (25.0-35.0); MCHC 34.1 g/dL (31.0-37.0); MCV 101.1 fL (80.0-100.0); Macrocytosis Marked; Mean Platelet Volume 9.7; Monocytes # (A) 0.5 k/uL (0-1.0); Monocytes % (A) 9 %; Neutrophils # (A) 2.9 k/uL (1.3-7.7); Neutrophils % (A) 55 %; Poikilocytosis Slight; RBC 1.57 m/uL (3.80-5.40); RDW 24.9 % (11.5-15.5); WBC 5.3 k/uL (3.8-10.6)
[2020-10-23 21:51] LABS: HCT 15.9 % (34.0-46.0); HGB 5.4 gm/dL (11.4-16.0)
[2020-10-23 21:53] LABS: Platelet Count 37 k/uL (150-450)
--- NOTE | 2020-10-23 21:54 | ED ---
Weakness HPI - General Chief complaint: Chest Pain Stated complaint: Chest Pain Time Seen by Provider: 10/23/20 21:19 Source: patient, RN notes reviewed, old records reviewed Mode of arrival: EMS Limitations: no limitations - History of Present Illness Initial comments: This is a 75-year-old female DF for evaluation. Patient coming in for chest pain weakness. Patient has been AUTUMN, history of low hemoglobin, patient states he feels a granulomatous currently well. Feels weak dizzy and sleepy. Patient has not got out of bed all day. Patient presents with her daughter who provides most of the history, patient doesn't some chest pain. Patient has A. fib high blood pressure high cholesterol with history of heart disease. No shortness of breath MD Complaint: generalized weakness, lack of energy -: days(s) Location: generalized Severity: severe Severity scale (1-10): 9 Consistency: constant Improves with: none Worsens with: none Context: history of similar Associated Symptoms: chest pain, loss of appetite, nausea/vomiting - Related Data Home Medications Medication Instructions Recorded Confirmed Spironolactone [Aldactone] 25 mg PO DAILY 01/01/14 10/18/20 Levothyroxine Sodium [Synthroid] 75 mcg PO DAILY 01/20/19 10/18/20 Metoprolol Tartrate [Lopressor] 50 mg PO BID 01/20/19 10/18/20 Venlafaxine HCl [Effexor XR] 75 mg PO HS 01/20/19 10/18/20 Venlafaxine HCl [Effexor XR] 150 mg PO DAILY 01/20/19 10/18/20 lisinopriL [Zestril] 5 mg PO HS 01/20/19 10/18/20 Amiodarone [Cordarone] 200 mg PO BID 05/03/19 10/18/20 Cyanocobalamin [Vitamin B-12] 500 mcg PO DAILY 05/03/19 10/18/20 Atorvastatin [Lipitor] 80 mg PO HS 07/26/20 10/18/20 Ergocalciferol [Vitamin D2 (1250 1,250 mcg PO Q14D 07/26/20 10/18/20 Mcg = 17366 Iu)] Gabapentin 600 mg PO QID 07/26/20 10/18/20 metFORMIN HCL [Glucophage] 1,000 mg PO AC-BID 07/26/20 10/18/20 Aspirin [Adult Low Dose Aspirin EC] 81 mg PO DAILY 10/02/20 10/18/20 Previous Rx's Medication Instructions Recorded Folic Acid 1 mg PO DAILY tab 10/12/20 Insulin Detemir (Levemir) [Levemir] 37 unit SQ AC-BRKFST #0 10/12/20 Insulin Detemir (Levemir) [Levemir] 41 unit SQ HS #0 10/12/20 Allergies Allergy/AdvReac Type Severity Reaction Status Date / Time fluoxetine HCl [From Prozac] Allergy Intermediate Itching Verified 10/18/20 11:58 gluten Allergy Intermediate Nausea & Verified 10/18/20 11:58 Vomiting Sulfa (Sulfonamide Allergy Intermediate Itching Verified 10/18/20 11:58 Antibiotics) mercury (elemental) Allergy Rash/Hives Verified 10/18/20 11:58 Review of Systems ROS Statement: Those systems with pertinent positive or pertinent negative responses have been documented in the HPI. ROS Other: All systems not noted in ROS Statement are negative. Past Medical History Past Medical History: Atrial Fibrillation, Blood Disorder, Cancer, Diabetes Mellitus, Hyperlipidemia, Hypertension, Renal Disease, Sleep Apnea/CPAP/BIPAP, Thyroid Disorder Additional Past Medical History / Comment(s): Heart disease, ocular neuritis, refractory anemia, breast cancer, myelodyspasia, reblozyl injection every 3 weeks for anemia, had blood transfusion today Last Myocardial Infarction Date:: 2018 History of Any Multi-Drug Resistant Organisms: None Reported Past Surgical History: Appendectomy, Breast Surgery, Cholecystectomy, Heart Catheterization With Stent Additional Past Surgical History / Comment(s): bilateral masectomy, heart cath follow up in 2000 port-a-cath 2020 Past Anesthesia/Blood Transfusion Reactions: No Reported Reaction Additional Past Anesthesia/Blood Transfusion Reaction / Comment(s): Pt has received blood without reaction. Date of Last Stent Placement:: 1997 Past Psychological History: Depression Smoking Status: Former smoker Past Alcohol Use History: None Reported Past Drug Use History: None Reported - Past Family History Father Family Medical History: Coronary Artery Disease (CAD), Hypertension, Myocardial Infarction (ID) Additional Family Medical History / Comment(s): Father at age 72 from coronary artery disease with history of diabetes Mother Family Medical History: Coronary Artery Disease (CAD) Additional Family Medical History / Comment(s): Mother at age 72 with history of coronary artery disease and diabetes. Sister(s) Additional Family Medical History / Comment(s): Patient has 1 sister with no major medical problems. Patient does not have. His. Patient has 1 daughter with no major medical problems. No history of breast cancer. General Exam Limitations: no limitations General appearance: alert, in no apparent distress Head exam: Present: atraumatic, normocephalic, normal inspection Eye exam: Present: normal appearance, PERRL, EOMI. Absent: scleral icterus, conjunctival injection, periorbital swelling ENT exam: Present: normal exam, mucous membranes moist Neck exam: Present: normal inspection. Absent: tenderness, meningismus, lymphadenopathy Respiratory exam: Present: normal lung sounds bilaterally. Absent: respiratory distress, wheezes, rales, rhonchi, stridor Cardiovascular Exam: Present: normal rhythm, bradycardia, normal heart sounds. Absent: systolic murmur, diastolic murmur, rubs, gallop, clicks GI/Abdominal exam: Present: soft, normal bowel sounds. Absent: distended, tenderness, guarding, rebound, rigid Extremities exam: Present: normal inspection, full ROM, normal capillary refill. Absent: tenderness, pedal edema, joint swelling, calf tenderness Back exam: Present: normal inspection Neurological exam: Present: alert, oriented X3, CN II-XII intact Psychiatric exam: Present: normal affect, normal mood Skin exam: Present: warm, dry, intact, normal color. Absent: rash Course Vital Signs 10/23/20 10/23/20 21:07 21:15 Temperature 97.3 F L Pulse Rate 56 L Pulse Rate [ 56 L Cloth Packer ] Respiratory 16 Rate Blood Pressure 87/26 O2 Sat by Pulse 100 Oximetry - Reevaluation(s) Reevaluation #1: 10/23/20 22:49 Medical records reviewed Reevaluation #2: 10/23/20 22:49 Patient states that she does feel like she is anemic again, patient family states her blood pressure usually not as well as and is currently and heart rate is usually not so low. Reevaluation #3: 10/23/20 22:49 Patient is informed of results here in the ER questions are answered - Consultations Consultation #1: Spoke with Dr. Holliday who will admit EKG Findings - EKG Comments: EKG Findings:: EKG is rhythm of 57, QRS 86 QTc 471 Medical Decision Making - Medical Decision Making 75 female to the ER for weakness fatigue and chest pain. Patient is significantly anemic with hemoglobin dropped. Patient will be admitted for transfusion, blood pressure improved with hydration, likely demand ischemia, no EKG changesn negativ troponin - Lab Data Result diagrams: 10/23/20 21:40 10/23/20 21:40 Lab Results 10/23/20 10/23/20 10/23/20 Range/Units 21:40 21:40 21:40 WBC 5.3 (3.8-10.6) k/uL RBC 1.57 L (3.80-5.40) m/uL Hgb 5.4 L* D (11.4-16.0) gm/dL Hct 15.9 L* (34.0-46.0) % MCV 101.1 H (80.0-100.0) fL MCH 34.5 (25.0-35.0) pg MCHC 34.1 (31.0-37.0) g/dL RDW 24.9 H (11.5-15.5) % Plt Count 37 L (150-450) k/uL MPV 9.7 Neutrophils % 55 % Lymphocytes % 31 % Monocytes % 9 % Eosinophils % 3 % Basophils % 0 % Neutrophils # 2.9 (1.3-7.7) k/uL Lymphocytes # 1.6 (1.0-4.8) k/uL Monocytes # 0.5 (0-1.0) k/uL Eosinophils # 0.1 (0-0.7) k/uL Basophils # 0.0 (0-0.2) k/uL Poikilocytosis Slight Anisocytosis Marked Macrocytosis Marked A PT 10.8 (9.0-12.0) sec INR 1.0 (<1.2) APTT 21.0 L (22.0-30.0) sec D-Dimer 1.69 H (<0.60) mg/L FEU Sodium 137 (137-145) mmol/L Potassium 5.0 (3.5-5.1) mmol/L Chloride 106 (98-107) mmol/L Carbon Dioxide 23 (22-30) mmol/L Anion Gap 8 mmol/L BUN 43 H (7-17) mg/dL Creatinine 1.45 H (0.52-1.04) mg/dL Est GFR (CKD-EPI)AfAm 40 (>60 ml/min/1.73 sqM) Est GFR (CKD-EPI)NonAf 35 (>60 ml/min/1.73 sqM) Glucose 175 H (74-99) mg/dL Calcium 7.8 L (8.4-10.2) mg/dL Magnesium 1.7 (1.6-2.3) mg/dL Total Bilirubin <0.1 L (0.2-1.3) mg/dL AST 23 (14-36) U/L ALT 28 (4-34) U/L Alkaline Phosphatase 74 (38-126) U/L Creatine Kinase <20 L (30-135) U/L Troponin I (0.000-0.034) ng/mL NT-Pro-B Natriuret Pep pg/mL Total Protein 4.9 L (6.3-8.2) g/dL Albumin 2.7 L (3.5-5.0) g/dL Lipase 83 (23-300) U/L Blood Type Blood Type Recheck Bld Type Recheck Status Antibody Screen Crossmatch Spec Expiration Date 10/23/20 10/23/20 10/23/20 Range/Units 21:40 21:40 22:07 WBC (3.8-10.6) k/uL RBC (3.80-5.40) m/uL Hgb (11.4-16.0) gm/dL Hct (34.0-46.0) % MCV (80.0-100.0) fL MCH (25.0-35.0) pg MCHC (31.0-37.0) g/dL RDW (11.5-15.5) % Plt Count (150-450) k/uL MPV Neutrophils % % Lymphocytes % % Monocytes % % Eosinophils % % Basophils % % Neutrophils # (1.3-7.7) k/uL Lymphocytes # (1.0-4.8) k/uL Monocytes # (0-1.0) k/uL Eosinophils # (0-0.7) k/uL Basophils # (0-0.2) k/uL Poikilocytosis Anisocytosis Macrocytosis PT (9.0-12.0) sec INR (<1.2) APTT (22.0-30.0) sec D-Dimer (<0.60) mg/L FEU Sodium (137-145) mmol/L Potassium (3.5-5.1) mmol/L Chloride (98-107) mmol/L Carbon Dioxide (22-30) mmol/L Anion Gap mmol/L BUN (7-17) mg/dL Creatinine (0.52-1.04) mg/dL Est GFR (CKD-EPI)AfAm (>60 ml/min/1.73 sqM) Est GFR (CKD-EPI)NonAf (>60 ml/min/1.73 sqM) Glucose (74-99) mg/dL Calcium (8.4-10.2) mg/dL Magnesium (1.6-2.3) mg/dL Total Bilirubin (0.2-1.3) mg/dL AST (14-36) U/L ALT (4-34) U/L Alkaline Phosphatase (38-126) U/L Creatine Kinase (30-135) U/L Troponin I <0.012 (0.000-0.034) ng/mL NT-Pro-B Natriuret Pep 441 pg/mL Total Protein (6.3-8.2) g/dL Albumin (3.5-5.0) g/dL Lipase (23-300) U/L Blood Type A Positive Blood Type Recheck A Pos Bld Type Recheck Status No Antibody Screen NEGATIVE Crossmatch See Detail Spec Expiration Date 10/26/20204 - Radiology Data Radiology results: report reviewed (Chest x-rays negative for acute disease), image reviewed Critical Care Time Critical Care Time: Yes Total Critical Care Time: 31 Disposition Clinical Impression: Atrial fibrillation, Bradycardia, Weakness, Myelodysplasia (myelodysplastic syndrome), Symptomatic anemia, Chest pain Disposition: [facility] Condition: Serious Is patient prescribed a controlled substance at d/c from ED?: No Referrals: Jaxon Palacios MD [Primary Care Provider] - 1-2 days
[2020-10-23 22:05] LABS: ALT 28 U/L (4-34); AST 23 U/L (14-36); African American GFR (CKD) 40 (>60 ml/min/1.73 sqM); Albumin 2.7 g/dL (3.5-5.0); Alkaline Phosphatase 74 U/L (38-126); Anion Gap 8 mmol/L; Calcium 7.8 mg/dL (8.4-10.2); Carbon Dioxide 23 mmol/L (22-30); Chloride 106 mmol/L (98-107); Creatine Kinase <20 U/L (30-135); Glucose 175 mg/dL (74-99); Lipase 83 U/L (23-300); Magnesium 1.7 mg/dL (1.6-2.3); Non-African American GFR(CKD) 35 (>60 ml/min/1.73 sqM); Sodium 137 mmol/L (137-145); Total Bilirubin <0.1 mg/dL (0.2-1.3); Total Protein 4.9 g/dL (6.3-8.2)
[2020-10-23 22:14] LABS: Prothrombin Time 10.8 sec (9.0-12.0)
[2020-10-23 22:17] LABS: Blood Urea Nitrogen 43 mg/dL (7-17)
[2020-10-23] MEDS ORDERED: NALOXONE 0.4 MG/ML 1 ML VIAL IV PRN (22:44)
[2020-10-23] MEDS ORDERED: ONDANSETRON 4 MG/2 ML VIAL IVP PRN (22:44)
--- NOTE | 2020-10-23 22:59 | XR ---
EXAMINATION TYPE: XR chest 2V DATE OF EXAM: 10/23/2020 COMPARISON: 10/10/2020 HISTORY: Chest pain TECHNIQUE: FINDINGS: There is no heart failure nor confluent pneumonic infiltrate. Costophrenic angles are clear . There are chest leads. The thorax is intact. There is thoracic aorta is atheromatous. IMPRESSION: No active cardiopulmonary disease. No change.
[2020-10-23] MEDS: SODIUM CHLORIDE 0.9% 1,000 ML IV SCH (23:26)
[2020-10-24 00:27] LABS: Glucose,Whole Blood 202 mg/dL (75-99)
[2020-10-24 05:32] LABS: Anisocytosis Moderate; Basophils % (A) 0 %; Eosinophils # (A) 0.1 k/uL (0-0.7); Eosinophils % (A) 2 %; HCT 24.3 % (34.0-46.0); Lymphocytes # (A) 1.5 k/uL (1.0-4.8); Lymphocytes % (A) 30 %; MCH 32.1 pg (25.0-35.0); MCHC 34.3 g/dL (31.0-37.0); Macrocytosis Slight; Mean Platelet Volume 9.5; Monocytes # (A) 0.4 k/uL (0-1.0); Monocytes % (A) 8 %; Neutrophils # (A) 2.8 k/uL (1.3-7.7); Neutrophils % (A) 57 %; Platelet Count 28 k/uL (150-450); Poikilocytosis Slight; WBC 4.9 k/uL (3.8-10.6)
[2020-10-24 05:45] LABS: HGB 8.4 gm/dL (11.4-16.0); MCV 93.5 fL (80.0-100.0)
[2020-10-24 05:54] LABS: Magnesium 1.7 mg/dL (1.6-2.3)
[2020-10-24 06:05] LABS: Glucose,Whole Blood 133 mg/dL (75-99)
[2020-10-24 06:06] LABS: Albumin 2.9 g/dL (3.5-5.0); Calcium 7.7 mg/dL (8.4-10.2); Phosphorus 4.3 mg/dL (2.5-4.5); Potassium 5.2 mmol/L (3.5-5.1); Total Bilirubin 0.5 mg/dL (0.2-1.3); Total Protein 5.1 g/dL (6.3-8.2)
[2020-10-24 09:48] LABS: Reticulocyte % 7.3 % (0.5-2.0)
[2020-10-24] MEDS ORDERED: METOPROLOL TARTRATE 50 MG TAB PO SCH (11:30)
--- NOTE | 2020-10-24 11:46 | P.HPIM ---
History of Present Illness H&P Date: 10/24/20 Chief Complaint: anemia, chest pain History of present illness This is a 75-year-old patient of Dr. Palacios with past medical history of right- sided breast cancer status post bilateral mastectomy in 2008, hypertension, hyperlipidemia, paroxysmal atrial fibrillation, diabetes mellitus type 2, fibromyalgia, generalized anxiety disorder and recurrent depression, obstructive sleep apnea with CPAP, gastroesophageal reflux disease, chronic kidney disease s tage III, myelodysplastic syndrome with pancytopenia, chronic anemia requiring blood transfusions every 1-2 weeks. She had a recent hospitalization October 10 through October 12 at which time she was treated for severe anemia status post 1 unit of packed RBCs with hemoglobin at the time of discharge is 7.2. She came into [facility] emergency center due to chest pain and weakness. She complains of a chest tightness going around the level of her nipple on the right chest and her back. She states she took aspirin but did not seem to help and that is why she ended up calling EMS. She did have nitroglycerin with EMS with no improvement of her chest pain. The pain hasn't woken her from sleep. Patient was found to have a blood pressure of 87/26, heart rate 56, afebrile, pulse ox 100%. Hemoglobin came back in 5.4 she's been transfused 3 units of packed RBCs with repeat hemoglobin of 8.4. Blood work this morning also revealed platelet count of 28, WBC 4.9. Sodium 137, potassium 5.2, chloride 110, CO2 21, BUN 48 and creatinine 1.21 improved from 1.45. Baseline creatinine is 1.1-1.2. Blood sugars are running between 133 and 202. AST 40, ALT 37, alkaline phosphatase 79. Troponins of the negative on 3 draws. Lipase 550. Chest x-ray shows no acute cardiopulmonary disease. Patient has increased edema to the left lower extremity and right calf tenderness for which ultrasound bilateral lower extremities ordered. Consult in place for oncology, GI and cardiology. Review Of Systems: Constitutional: No fever, no chills, no night sweats. No weight change. Reports weakness and fatigue no lethargy. No daytime sleepiness. EENT: No headache. No blurred vision or double vision, no loss of vision. No loss of Hearing, no ringing in the ears, no dizziness. No nasal drainage or congestion. No epistaxis. No sore throat. Lungs: No shortness of breath, cough, no sputum production. No wheezing. Shortness of breath with exertion. Cardiovascular: Reports chest pain, reports haptoglobin lower extremity edema. No palpitations. No paroxysmal nocturnal dyspnea. No orthopnea. Reports lightheadedness and dizziness. No syncopal episodes. Abdominal: no abdominal discomfort. No nausea, vomiting. no diarrhea. No constipation. No bloody or tarry stools. no loss of appetite. Genitourinary: No dysuria, increased frequency, urgency. No urinary retention. Musculoskeletal: No myalgias. No muscle weakness, no gait dysfunction, no f requent falls. No back pain. No neck pain. Integumentary: No wounds, no lesions. No rash or pruritus. No unusual bruising. No change in hair or nails. Neurologic: No aphasia. No facial droop. No change in mentation. No head injury. No headache. No paralysis. No paresthesia. Psychiatric: Reports depression. Reports anxiety. No mood swings. Endocrine: No abnormal blood sugars. No weight change. No excessive sweating or thirst. Social history: Previous smoker of 4 packs per day for 20 years and quit approximate 20 years ago. Denies any marijuana versus drug use. No alcohol use. She is at home with her daughter. Utilizes a CPAP and nebulizer. Patient is . Family history: Father at 72 from coronary artery disease with history of diabetes, mother at the age of 72 from coronary artery disease with history of diabetes and breast cancer, sister with no major medical issues other than hypertension, one daughter who has hypertension. Physical examination General Appearance: Alert, cooperative, no distress, appears stated age. Neck HEENT: Supple, no lymphadenopathy, no thyroid enlargement, no carotid bruits. Lungs: Clear to auscultation without crackles or wheezes no rhonchi, no deformity. Chest Wall: Chest wall normal expansion with deep inspiration no tenderness and no deformity was found on exam, no costochondral pain or discomfort. Heart: Regular rate and rhythm, S1, S2 normal, no murmur, rub or gallop. Back: Symmetric, no curvature, ROM normal, no CVA tenderness. Abdomen: Soft, non-tender, no rebound or rigidity, no hepatosplenomegaly. Extremities: Extremities normal, atraumatic, no cyanosis or 1+ edema to the left lower extremity, trace right lower extremity edema and tenderness. Pulses: 2+ and symmetric. Skin: Skin color, texture, tugor normal, no rashes or lesions. Neurologic: Alert oriented x3 cranial nerves II through XII intact, no motor deficit, no abnormal balance or gait Assessment and plan 1. Severe anemia. Status post blood transfusion of 3 unit packed RBC. Patient has chronic anemia. Hematology and GI consult. Repeat hemoglobin tomorrow. 2. History of myelodysplastic syndrome. Oncology consult. Monitor CBC. 3. Lower extremity edema, Rule out DVT with ultrasound bilateral lower extremities. 4. Chronic kidney disease stage III. Avoid neurotoxins. Monitor renal function daily. Continue lisinopril, Lasix and Aldactone 5. GERD and GI prophylaxis. Protonix. 6. Diabetes mellitus type 2. Continue metformin 1000 mg twice daily, NovoLog sliding scale. Continue Levemir 35 units at bedtime and 40 units at breakfast. 7. Hypertension. Continue amiodarone 200 mg twice daily, Lasix, lisinopril 5 mg at bedtime, metoprolol 50 mg twice daily. 8. Paroxysmal atrial fibrillation. Continue amiodarone 200 mg by mouth twice a day, metoprolol 50 mg twice daily 9. Hyperlipidemia. Atorvastatin 80 mg by mouth at bedtime 10. Hypothyroidism. Levothyroxine 75 MCG's by mouth daily 11. Fibromyalgia, stable. Gabapentin 600 mg by mouth every 5 hours, continue Ultram 50 mg by mouth daily 12. History of breast cancer status post bilateral mastectomy. 13. Generalized anxiety disorder recurrent depression. Continue Effexor 75 mg by mouth at bedtime, 150mg by mouth daily 14. Obstructive sleep apnea. Continue CPAP. 15. DVT prophylaxis. SCDs. CODE STATUS: No code Discharge plan Return home Impression and plan of care have been directed as dictated by the signing physician. Abril Riley nurse practitioner acting as scribe for signing physician. Past Medical History Past Medical History: Atrial Fibrillation, Blood Disorder, Cancer, Diabetes Mellitus, Hyperlipidemia, Hypertension, Renal Disease, Sleep Apnea/CPAP/BIPAP, Thyroid Disorder Additional Past Medical History / Comment(s): Heart disease, ocular neuritis, refractory anemia, breast cancer, myelodyspasia, reblozyl injection every 3 weeks for anemia, had blood transfusion today Last Myocardial Infarction Date:: 2018 History of Any Multi-Drug Resistant Organisms: None Reported Past Surgical History: Appendectomy, Breast Surgery, Cholecystectomy, Heart Catheterization With Stent Additional Past Surgical History / Comment(s): bilateral masectomy, heart cath follow up in 2000 port-a-cath 2020 Past Anesthesia/Blood Transfusion Reactions: No Reported Reaction Additional Past Anesthesia/Blood Transfusion Reaction / Comment(s): Pt has received blood without reaction. Date of Last Stent Placement:: 1997 Past Psychological History: Depression Additional Psychological History / Comment(s): Pt has her daughter and son in law living with her. She ambulates with a rollator. Her daughter is her caregiver. She no longer drives, her daughter takes her to appts. She has a cpap, glucometer. Smoking Status: Former smoker Past Alcohol Use History: None Reported Additional Past Alcohol Use History / Comment(s): Patient was a smoker of 3 packs per day for 20 years and quit approximately 20 years ago. She denies any marijuana, illicit drug use. No alcohol use. She was at home with her daughter. She does have a CPAP and nebulizer. Patient is . Past Drug Use History: None Reported - Past Family History Father Family Medical History: Coronary Artery Disease (CAD), Hypertension, Myocardial Infarction ([place]) Additional Family Medical History / Comment(s): Father at age 72 from coronary artery disease with history of diabetes Mother Family Medical History: Coronary Artery Disease (CAD) Additional Family Medical History / Comment(s): Mother at age 72 with history of coronary artery disease and diabetes. Sister(s) Additional Family Medical History / Comment(s): Patient has 1 sister with no major medical problems. Patient does not have. His. Patient has 1 daughter with no major medical problems. No history of breast cancer. Medications and Allergies Home Medications Medication Instructions Recorded Confirmed Type Spironolactone [Aldactone] 25 mg PO DAILY 01/01/14 10/23/20 History Levothyroxine Sodium [Synthroid] 75 mcg PO DAILY 01/20/19 10/23/20 History Metoprolol Tartrate [Lopressor] 50 mg PO BID 01/20/19 10/23/20 History Venlafaxine HCl [Effexor XR] 75 mg PO HS 01/20/19 10/23/20 History Venlafaxine HCl [Effexor XR] 150 mg PO DAILY 01/20/19 10/23/20 History lisinopriL [Zestril] 5 mg PO HS 01/20/19 10/23/20 History Amiodarone [Cordarone] 200 mg PO BID 05/03/19 10/23/20 History Cyanocobalamin [Vitamin B-12] 500 mcg PO DAILY 05/03/19 10/23/20 History Atorvastatin [Lipitor] 80 mg PO HS 07/26/20 10/23/20 History Ergocalciferol [Vitamin D2 (1250 1,250 mcg PO Q14D 07/26/20 10/23/20 History Mcg = 20993 Iu)] Gabapentin 600 mg PO QID 07/26/20 10/23/20 History metFORMIN HCL [Glucophage] 1,000 mg PO AC-BID 07/26/20 10/23/20 History Folic Acid 1 mg PO DAILY tab 10/12/20 10/23/20 Rx Insulin Detemir (Levemir) [Levemir] 35 unit SQ HS 10/23/20 10/23/20 History Insulin Detemir (Levemir) [Levemir] 40 unit SQ [id number] 10/23/20 10/23/20 History Levothyroxine Sodium [Synthroid] 200 mcg PO DAILY 10/23/20 10/23/20 History Allergies Allergy/AdvReac Type Severity Reaction Status Date / Time fluoxetine HCl [From Prozac] Allergy Intermediate Itching Verified 10/23/20 23:02 gluten Allergy Intermediate Nausea & Verified 10/23/20 23:02 Vomiting Sulfa (Sulfonamide Allergy Intermediate Itching Verified 10/23/20 23:02 Antibiotics) mercury (elemental) Allergy Rash/Hives Verified 10/23/20 23:02 Physical Exam Vitals: Vital Signs Temp Pulse Pulse Resp BP BP Pulse Ox 10/24/20 08:00 97.5 F L 64 18 142/72 94 L 10/24/20 07:01 97.8 F 64 18 165/75 10/24/20 05:07 98.0 F 58 L 18 158/62 99 10/24/20 04:37 98.2 F 69 18 151/60 99 10/24/20 04:27 98.9 F 70 18 164/62 10/24/20 04:08 98.9 F 70 18 164/62 100 10/24/20 02:22 98.5 F 66 18 138/54 100 10/24/20 02:06 98.9 F 59 L 18 151/50 100 10/24/20 01:52 98.9 F 59 L 18 151/50 10/24/20 01:42 99.0 F 53 L 18 147/64 100 10/24/20 01:22 98.5 F 57 L 20 143/51 99 10/24/20 00:01 97.8 F 72 18 113/45 100 10/23/20 23:45 98.4 F 84 20 124/46 92 L 10/23/20 23:31 97.6 F 70 18 97/34 10/23/20 23:21 97.5 F L 72 16 109/34 100 10/23/20 23:14 98.1 F 70 18 101/26 10/23/20 22:30 71 16 106/40 100 10/23/20 21:30 61 18 84/49 100 10/23/20 21:15 56 L 10/23/20 21:07 97.3 F L 56 L 16 87/26 100 Intake and Output 10/23/20 10/24/20 10/24/20 22:59 06:59 14:59 Intake Total 930 Balance 930 Intake: Blood Product 930 Rc As-1 Unit 310 [id number] Rc As-1 Unit 310 [id number] Rc As-1 Unit 310 [id number] Other: # Voids 1 1 Weight 118.841 kg 121.6 kg Results CBC & Chem 7: 10/24/20 05:20 10/24/20 05:20 Labs: Abnormal Lab Results - Last 24 Hours (Table) 10/23/20 10/23/20 10/23/20 Range/Units 21:40 21:40 21:40 RBC 1.57 L (3.80-5.40) m/uL Hgb 5.4 L* D (11.4-16.0) gm/dL Hct 15.9 L* (34.0-46.0) % MCV 101.1 H (80.0-100.0) fL RDW 24.9 H (11.5-15.5) % Plt Count 37 L (150-450) k/uL Macrocytosis Marked A APTT 21.0 L (22.0-30.0) sec D-Dimer 1.69 H (<0.60) mg/L FEU Potassium (3.5-5.1) mmol/L Chloride (98-107) mmol/L Carbon Dioxide (22-30) mmol/L BUN 43 H (7-17) mg/dL Creatinine 1.45 H (0.52-1.04) mg/dL Glucose 175 H (74-99) mg/dL POC Glucose (mg/dL) (75-99) mg/dL Calcium 7.8 L (8.4-10.2) mg/dL Total Bilirubin <0.1 L (0.2-1.3) mg/dL AST (14-36) U/L ALT (4-34) U/L Creatine Kinase <20 L (30-135) U/L Total Protein 4.9 L (6.3-8.2) g/dL Albumin 2.7 L (3.5-5.0) g/dL Lipase (23-300) U/L Crossmatch 10/23/20 10/24/20 10/24/20 Range/Units 22:07 00:25 05:20 RBC 2.60 L (3.80-5.40) m/uL Hgb 8.4 L D (11.4-16.0) gm/dL Hct 24.3 L (34.0-46.0) % MCV (80.0-100.0) fL RDW 22.0 H (11.5-15.5) % Plt Count 28 L (150-450) k/uL Macrocytosis APTT (22.0-30.0) sec D-Dimer (<0.60) mg/L FEU Potassium (3.5-5.1) mmol/L Chloride (98-107) mmol/L Carbon Dioxide (22-30) mmol/L BUN (7-17) mg/dL Creatinine (0.52-1.04) mg/dL Glucose (74-99) mg/dL POC Glucose (mg/dL) 202 H (75-99) mg/dL Calcium (8.4-10.2) mg/dL Total Bilirubin (0.2-1.3) mg/dL AST (14-36) U/L ALT (4-34) U/L Creatine Kinase (30-135) U/L Total Protein (6.3-8.2) g/dL Albumin (3.5-5.0) g/dL Lipase (23-300) U/L Crossmatch See Detail 10/24/20 10/24/20 Range/Units 05:20 06:03 RBC (3.80-5.40) m/uL Hgb (11.4-16.0) gm/dL Hct (34.0-46.0) % MCV (80.0-100.0) fL RDW (11.5-15.5) % Plt Count (150-450) k/uL Macrocytosis APTT (22.0-30.0) sec D-Dimer (<0.60) mg/L FEU Potassium 5.2 H (3.5-5.1) mmol/L Chloride 110 H (98-107) mmol/L Carbon Dioxide 21 L (22-30) mmol/L BUN 48 H (7-17) mg/dL Creatinine 1.21 H (0.52-1.04) mg/dL Glucose 124 H (74-99) mg/dL POC Glucose (mg/dL) 133 H (75-99) mg/dL Calcium 7.7 L (8.4-10.2) mg/dL Total Bilirubin (0.2-1.3) mg/dL AST 40 H (14-36) U/L ALT 37 H (4-34) U/L Creatine Kinase (30-135) U/L Total Protein 5.1 L (6.3-8.2) g/dL Albumin 2.9 L (3.5-5.0) g/dL Lipase 550 H (23-300) U/L Crossmatch Thrombosis Risk Factor Assmnt - Choose All That Apply Any of the Below Risk Factors Present?: Yes Each Factor Represents 1 point: Obesity (BMI >25), Swollen legs (current) Other Risk Factors: Yes Each Risk Factor Represents 3 Points: Age 75 years or older Other congenital or acquired thrombophilia - If yes, enter type in comment: No Thrombosis Risk Factor Assessment Total Risk Factor Score: 5 Thrombosis Risk Factor Assessment Level: High Risk
[2020-10-24 11:47] LABS: Glucose,Whole Blood 102 mg/dL (75-99)
[2020-10-24] MEDS: AMIODARONE 200 MG TAB PO SCH ×2 (12:28→22:00)
[2020-10-24] MEDS: GABAPENTIN 300 MG CAP PO SCH ×3 (12:28→21:59)
--- NOTE | 2020-10-24 12:56 | US ---
EXAMINATION TYPE: US venous doppler duplex LE DATE OF EXAM: 10/24/2020 11:19 AM COMPARISON: NONE CLINICAL HISTORY: edema and pain. bilateral leg swelling, patient states it is ongoing for a long lucia e, no h/o DVT, obese patient who did not tolerate test well SIDE PERFORMED: Bilateral TECHNIQUE: The lower extremity deep venous system is examined utilizing real time linear array sonog aarti with graded compression, doppler sonography and color-flow sonography. VESSELS IMAGED: Common Femoral Vein Deep Femoral Vein Greater Saphenous Vein * Femoral Vein Popliteal Vein Small Saphenous Vein * Proximal Calf Veins (* superficial vessels) Very difficult patient to image due to habitus, large overlying panis and inability to tolerate any pressure and even pushed highway engineering technician's hand away during test. Right Leg: Portion of veins appeared negative for clot due to color flow and doppler assessment ar terial flow appearance and audio sound when doppler of distal femoral vein was done, of unknown etiol ogy, patient states no surgical or procedure history on right leg Left Leg: Portion of veins appeared negative for clot due to color flow and doppler assessment IMPRESSION 1. Limited exam as discussed above. Patient could not tolerate compression views and therefore the st udy is limited. No obvious DVT as visualized and noted above. See above. 2. There appears to be arterial waveform within the right femoral vein which is nonspecific but could BE seen with arteriovenous fistula correlate clinically.
--- NOTE | 2020-10-24 13:54 | P.CRDCN ---
History of Present Illness History of present illness: This is a pleasant 75-year-old female with past medical history significant for right sided breast cancer status post bilateral mastectomy in 2008, coronary artery disease and prior stenting of the RCA and December 2018, type 2 diabetes, moderate aortic stenosis, hypertension, hyperlipidemia, paroxysmal atrial fibrillation for which she is not on anticoagulation, history of anemia requiring blood transfusion, chronic kidney disease, fibromyalgia, myelodysplastic syndrome with pancytopenia, chronic anemia requiring blood transfusions. Patient follow in the office with Dr. Mcwilliams. Patient underwent an EGD and colonoscopy in May 2019, EGD was normal, colonoscopy showed 5-6 mm cecal polyp and 5 mm ascending colon polyp which was removed at that time. Patient presents to the hospital on this admission with chest pain and weakness. She states she woke up with right-sided chest pain, and also back pain. Pain is nonradiating, nonexertional. She does have associated mild shortness of breath. Denies palpitations, diaphoresis, nausea, vomiting. EKG no evidence of ischemia. Chest x-ray no active cardiopulmonary process. Troponin negative 3. Telemetry reviewed patient in sinus mechanism heart rate 60 to 70s, occasionally bradycardic in the 50s. On admission patient's hemoglobin 5.4, platelets 37, d-dimer 1.6, sodium 137, potassium 5.0, BUN 43, serum creatinine 1.4, magnesium 1.7, lipase 550. Current home cardiac medications include lisinopril 5 mg nightly, atorvastatin 80 mg nightly, spironolactone 25 mg daily, metoprolol tartrate 50 mg twice a day, amiodarone 200 mg twice a day. Most recent echocardiogram 10/2019 revealed EF 65-70%, moderate aortic stenosis with a peak/mean gradient 42 mmHg/21 mmHg. REVIEW OF SYSTEMS At the time of my exam: CONSTITUTIONAL: Denies fever or chills. CARDIOVASCULAR: +chest pain, +shortness of breath Denies orthopnea, PND or palpitations. RESPIRATORY: Denies cough. GASTROINTESTINAL: Denies abdominal pain, diarrhea, constipation, nausea or vomiting. MUSCULOSKELETAL: Denies myalgias. NEUROLOGIC: +generalized weakness Denies numbness, tingling, headacbe ENDOCRINE: Denies fatigue, weight change, polydipsia or polyurina. GENITOURINARY: Denies burning, hematuria or urgency with micturation. HEMATOLOGIC: Denies history of anemia or bleeding. PHYSICAL EXAMINATION Blood pressure 135/74 heart rate 69 afebrile and maintaining oxygen saturation 96% on room air CONSTITUTIONAL: Patient is lethargic, no acute distress. HEENT: Head is normocephalic. Pupils are equal, round. Sclerae anicteric. Mucous membranes of the mouth are moist. No JVD. No carotid bruit. CHEST EXAMINATION: Lungs are clear to auscultation. No chest wall tenderness is noted on palpation or with deep breathing. HEART EXAMINATION: Regular rate and rhythm. S1, S2 heard. Right sternal border systolic murmur ABDOMEN: Soft, nontender. Positive bowel sounds. EXTREMITIES: 2+ peripheral pulses, Bilateral shins with redness and dry NEUROLOGIC EXAMINATION: Patient is lethargic, alert and oriented x3. ASSESSMENT Chest pain, atypical acute coronary syndrome ruled out Severe Anemia History of Breast cancer Coronary artery disease and prior stenting of the RCA and December 2018 Type 2 diabetes Moderate aortic stenosis Hypertension Hyperlipidemia Paroxysmal atrial fibrillation for which she is not on anticoagulation due to anemia and requiring blood transfusions History of myelodysplastic syndrome with pancytopenia PLAN Patient chest pain, most likely due to severe anemia. No further cardiac work up at this time We will hold Aspirin Patient became bradycardic after metoprolol tartrate given, will hold medication and continue to monitor patient. Rest of management per primary and heme/onc team Nurse Practitioner note has been reviewed, I agree with a documented findings and plan of care. Patient was seen and examined. Past Medical History Past Medical History: Atrial Fibrillation, Blood Disorder, Cancer, Diabetes Mellitus, Hyperlipidemia, Hypertension, Renal Disease, Sleep Apnea/CPAP/BIPAP, Thyroid Disorder Additional Past Medical History / Comment(s): Heart disease, ocular neuritis, refractory anemia, breast cancer, myelodyspasia, reblozyl injection every 3 weeks for anemia, had blood transfusion today Last Myocardial Infarction Date:: 2018 History of Any Multi-Drug Resistant Organisms: None Reported Past Surgical History: Appendectomy, Breast Surgery, Cholecystectomy, Heart Catheterization With Stent Additional Past Surgical History / Comment(s): bilateral masectomy, heart cath follow up in 2000 port-a-cath 2020 Past Anesthesia/Blood Transfusion Reactions: No Reported Reaction Additional Past Anesthesia/Blood Transfusion Reaction / Comment(s): Pt has received blood without reaction. Date of Last Stent Placement:: 1997 Past Psychological History: Depression Additional Psychological History / Comment(s): Pt has her daughter and son in law living with her. She ambulates with a rollator. Her daughter is her caregiver. She no longer drives, her daughter takes her to appts. She has a cpap, glucometer. Smoking Status: Former smoker Past Alcohol Use History: None Reported Additional Past Alcohol Use History / Comment(s): Patient was a smoker of 3 packs per day for 20 years and quit approximately 20 years ago. She denies any marijuana, illicit drug use. No alcohol use. She was at home with her daughter. She does have a CPAP and nebulizer. Patient is . Past Drug Use History: None Reported - Past Family History Father Family Medical History: Coronary Artery Disease (CAD), Hypertension, Myocardial Infarction ([place]) Additional Family Medical History / Comment(s): Father at age 72 from coronary artery disease with history of diabetes Mother Family Medical History: Coronary Artery Disease (CAD) Additional Family Medical History / Comment(s): Mother at age 72 with history of coronary artery disease and diabetes. Sister(s) Additional Family Medical History / Comment(s): Patient has 1 sister with no darius or medical problems. Patient does not have. His. Patient has 1 daughter with no major medical problems. No history of breast cancer. Medications and Allergies Home Medications Medication Instructions Recorded Confirmed Type Spironolactone [Aldactone] 25 mg PO DAILY 01/01/14 10/23/20 History Levothyroxine Sodium [Synthroid] 75 mcg PO DAILY 01/20/19 10/23/20 History Metoprolol Tartrate [Lopressor] 50 mg PO BID 01/20/19 10/23/20 History Venlafaxine HCl [Effexor XR] 75 mg PO HS 01/20/19 10/23/20 History Venlafaxine HCl [Effexor XR] 150 mg PO DAILY 01/20/19 10/23/20 History lisinopriL [Zestril] 5 mg PO HS 01/20/19 10/23/20 History Amiodarone [Cordarone] 200 mg PO BID 05/03/19 10/23/20 History Cyanocobalamin [Vitamin B-12] 500 mcg PO DAILY 05/03/19 10/23/20 History Atorvastatin [Lipitor] 80 mg PO HS 07/26/20 10/23/20 History Ergocalciferol [Vitamin D2 (1250 1,250 mcg PO Q14D 07/26/20 10/23/20 History Mcg = 45766 Iu)] Gabapentin 600 mg PO QID 07/26/20 10/23/20 History metFORMIN HCL [Glucophage] 1,000 mg PO AC-BID 07/26/20 10/23/20 History Folic Acid 1 mg PO DAILY tab 10/12/20 10/23/20 Rx Insulin Detemir (Levemir) [Levemir] 35 unit SQ HS 10/23/20 10/23/20 History Insulin Detemir (Levemir) [Levemir] 40 unit SQ AC-BRKFST 10/23/20 10/23/20 History Levothyroxine Sodium [Synthroid] 200 mcg PO DAILY 10/23/20 10/23/20 History Allergies Allergy/AdvReac Type Severity Reaction Status Date / Time fluoxetine HCl [From Prozac] Allergy Intermediate Itching Verified 10/23/20 23:02 gluten Allergy Intermediate Nausea & Verified 10/23/20 23:02 Vomiting Sulfa (Sulfonamide Allergy Intermediate Itching Verified 10/23/20 23:02 Antibiotics) mercury (elemental) Allergy Rash/Hives Verified 10/23/20 23:02 Physical Exam Vitals: Vital Signs Temp Pulse Pulse Resp BP BP Pulse Ox 10/24/20 07:01 97.8 F 64 18 165/75 10/24/20 05:07 98.0 F 58 L 18 158/62 99 10/24/20 04:37 98.2 F 69 18 151/60 99 10/24/20 04:27 98.9 F 70 18 164/62 10/24/20 04:08 98.9 F 70 18 164/62 100 10/24/20 02:22 98.5 F 66 18 138/54 100 10/24/20 02:06 98.9 F 59 L 18 151/50 100 10/24/20 01:52 98.9 F 59 L 18 151/50 10/24/20 01:42 99.0 F 53 L 18 147/64 100 10/24/20 01:22 98.5 F 57 L 20 143/51 99 10/24/20 00:01 97.8 F 72 18 113/45 100 10/23/20 23:45 98.4 F 84 20 124/46 92 L 10/23/20 23:31 97.6 F 70 18 97/34 10/23/20 23:21 97.5 F L 72 16 109/34 100 10/23/20 23:14 98.1 F 70 18 101/26 10/23/20 22:30 71 16 106/40 100 10/23/20 21:30 61 18 84/49 100 10/23/20 21:15 56 L 10/23/20 21:07 97.3 F L 56 L 16 87/26 100 Intake and Output 10/23/20 10/24/20 10/24/20 22:59 06:59 14:59 Intake Total 930 Balance 930 Intake: Blood Product 930 Rc As-1 Unit 310 [id number] Rc As-1 Unit 310 [id number] Rc As-1 Unit 310 [id number] Other: # Voids 1 Weight 118.841 kg 121.6 kg Results 10/24/20 05:20 10/24/20 05:20 Cardiac Enzymes 10/23/20 10/23/20 10/24/20 Range/Units 21:40 21:40 01:28 AST 23 (14-36) U/L Troponin I <0.012 <0.012 (0.000-0.034) ng/mL 10/24/20 10/24/20 Range/Units 05:20 05:20 AST 40 H (14-36) U/L Troponin I <0.012 (0.000-0.034) ng/mL Coagulation 10/23/20 Range/Units 21:40 PT 10.8 (9.0-12.0) sec APTT 21.0 L (22.0-30.0) sec CBC 10/23/20 10/24/20 Range/Units 21:40 05:20 WBC 5.3 4.9 (3.8-10.6) k/uL RBC 1.57 L 2.60 L (3.80-5.40) m/uL Hgb 5.4 L* D 8.4 L D (11.4-16.0) gm/dL Hct 15.9 L* 24.3 L (34.0-46.0) % Plt Count 37 L 28 L (150-450) k/uL Comprehensive Metabolic Panel 10/23/20 10/24/20 Range/Units 21:40 05:20 Sodium 137 137 (137-145) mmol/L Potassium 5.0 5.2 H (3.5-5.1) mmol/L Chloride 106 110 H (98-107) mmol/L Carbon Dioxide 23 21 L (22-30) mmol/L BUN 43 H 48 H (7-17) mg/dL Creatinine 1.45 H 1.21 H (0.52-1.04) mg/dL Glucose 175 H 124 H (74-99) mg/dL Calcium 7.8 L 7.7 L (8.4-10.2) mg/dL AST 23 40 H (14-36) U/L ALT 28 37 H (4-34) U/L Alkaline Phosphatase 74 79 (38-126) U/L Total Protein 4.9 L 5.1 L (6.3-8.2) g/dL Albumin 2.7 L 2.9 L (3.5-5.0) g/dL Current Medications Generic Name Dose Route Start Last Admin Trade Name Freq PRN Reason Stop Dose Admin Sodium Chloride 1,000 mls @ 20 mls/hr 10/23/20 22:45 10/23/20 23:26 Saline 0.9% IV 20 mls/hr .Q24H FATEMEH Administration Naloxone HCl 0.2 mg 10/23/20 22:44 Naloxone 0.4 Mg/Ml 1 Ml Vial IV Q2M PRN Opioid Reversal Ondansetron HCl 4 mg 10/23/20 22:44 Ondansetron 4 Mg/2 Ml Vial IVP Q8HR PRN Nausea And Vomiting Intake and Output 10/23/20 10/24/20 10/24/20 22:59 06:59 14:59 Intake Total 930 Balance 930 Intake: Blood Product 930 Rc As-1 Unit 310 [id number] Rc As-1 Unit 310 [id number] Rc As-1 Unit 310 [id number] Other: # Voids 1 Weight 118.841 kg 121.6 kg 10/24/20 05:20 10/24/20 05:20
--- NOTE | 2020-10-24 14:14 | P.CONS ---
History of Present Illness - Reason for Consult Consult date: 10/24/20 Anemia Requesting physician: Bereket Holliday - Chief Complaint Chest pain, weakness - History of Present Illness This is a pleasant 75-year-old white female who was admitted to the hospital with complaints of chest pressure and weakness. He has a past medical history hypertension, hyperlipidemia, refractory anemia, COPD, diabetes mellitus, hypothyroidism, degenerative joint disease and atrial fibrillation. On admission she was noted to have a hemoglobin of 5.4 and was transfused 3 units of PRBC. The patient states she is not having any abdominal pain, no nausea, vomiting, no rectal bleeding or melena. She has been having some weakness and fatigue over the last few days duration. This patient was diagnosed with refractory anemia and follows with Dr. Siddiqui, she underwent a bone marrow biopsy a year ago and states she was told she had refractory anemia and she's been requiring PRBC transfusions every 2-[address] Siddiqui's office. She underwent an extensive GI evaluation in the past prior to her diagnosis of refractory anemia. An EGD and colonoscopy 06/11/2019 revealed a small cecal polyp as well as ascending colon polyps that were removed by snare polypectomy and the upper endoscopy was within normal limits. She also underwent a small bowel capsule endoscopy in October 2019 that showed no active bleeding in the small bowel. Review of Systems REVIEW OF SYSTEMS: CARDIOPULMONARY: Chest pain/pressure. Gastrointestinal: No abdominal pain. No nausea or vomiting. No hematemesis, coffee-ground emesis. No rectal bleeding, or melena. GENITOURINARY: No dysuria or hematuria. MUSCULOSKELETAL: Reports normal range of motion., Joint pain. SKIN: No rashes. No jaundice. ENDOCRINE: No chills, fevers. No excessive weight gain or loss. No polydipsia or polyuria. PSYCHIATRIC: Unremarkable. NEUROLOGY: No change in mental status. Denies dizziness, headache. ENT: Vision unremarkable. CONSTITUTIONAL: No recent weight loss. No fever, chills, night sweats. Weakness, fatigue. Past Medical History Past Medical History: Atrial Fibrillation, Blood Disorder, Cancer, Diabetes Mellitus, Hyperlipidemia, Hypertension, Renal Disease, Sleep Apnea/CPAP/BIPAP, Thyroid Disorder Additional Past Medical History / Comment(s): Heart disease, ocular neuritis, refractory anemia, breast cancer, myelodyspasia, reblozyl injection every 3 weeks for anemia, had blood transfusion today Last Myocardial Infarction Date:: 2018 History of Any Multi-Drug Resistant Organisms: None Reported Past Surgical History: Appendectomy, Breast Surgery, Cholecystectomy, Heart Catheterization With Stent Additional Past Surgical History / Comment(s): bilateral masectomy, heart cath follow up in 2000 port-a-cath 2020 Past Anesthesia/Blood Transfusion Reactions: No Reported Reaction Additional Past Anesthesia/Blood Transfusion Reaction / Comm: Pt has received blood without reaction. Date of Last Stent Placement:: 1997 Past Psychological History: Depression Additional Psychological History / Comment(s): Pt has her daughter and son in law living with her. She ambulates with a rollator. Her daughter is her caregiver. She no longer drives, her daughter takes her to appts. She has a cpap, glucometer. Smoking Status: Former smoker Past Alcohol Use History: None Reported Additional Past Alcohol Use History / Comment(s): Patient was a smoker of 3 pack s per day for 20 years and quit approximately 20 years ago. She denies any marijuana, illicit drug use. No alcohol use. She was at home with her daughter. She does have a CPAP and nebulizer. Patient is . Past Drug Use History: None Reported - Past Family History Father Family Medical History: Coronary Artery Disease (CAD), Hypertension, Myocardial Infarction ([place]) Additional Family Medical History / Comment(s): Father at age 72 from coronary artery disease with history of diabetes Mother Family Medical History: Coronary Artery Disease (CAD) Additional Family Medical History / Comment(s): Mother at age 72 with history of coronary artery disease and diabetes. Sister(s) Additional Family Medical History / Comment(s): Patient has 1 sister with no major medical problems. Patient does not have. His. Patient has 1 daughter with no major medical problems. No history of breast cancer. Medications and Allergies Home Medications Medication Instructions Recorded Confirmed Type Spironolactone [Aldactone] 25 mg PO DAILY 01/01/14 10/23/20 History Levothyroxine Sodium [Synthroid] 75 mcg PO DAILY 01/20/19 10/23/20 History Metoprolol Tartrate [Lopressor] 50 mg PO BID 01/20/19 10/23/20 History Venlafaxine HCl [Effexor XR] 75 mg PO HS 01/20/19 10/23/20 History Venlafaxine HCl [Effexor XR] 150 mg PO DAILY 01/20/19 10/23/20 History lisinopriL [Zestril] 5 mg PO HS 01/20/19 10/23/20 History Amiodarone [Cordarone] 200 mg PO BID 05/03/19 10/23/20 History Cyanocobalamin [Vitamin B-12] 500 mcg PO DAILY 05/03/19 10/23/20 History Atorvastatin [Lipitor] 80 mg PO HS 07/26/20 10/23/20 History Ergocalciferol [Vitamin D2 (1250 1,250 mcg PO Q14D 07/26/20 10/23/20 History Mcg = 74940 Iu)] Gabapentin 600 mg PO QID 07/26/20 10/23/20 History metFORMIN HCL [Glucophage] 1,000 mg PO AC-BID 07/26/20 10/23/20 History Folic Acid 1 mg PO DAILY tab 10/12/20 10/23/20 Rx Insulin Detemir (Levemir) [Levemir] 35 unit SQ HS 10/23/20 10/23/20 History Insulin Detemir (Levemir) [Levemir] 40 unit SQ AC-BRKFST 10/23/20 10/23/20 History Levothyroxine Sodium [Synthroid] 200 mcg PO DAILY 10/23/20 10/23/20 History Allergies Allergy/AdvReac Type Severity Reaction Status Date / Time fluoxetine HCl [From Prozac] Allergy Intermediate Itching Verified 10/23/20 23:02 gluten Allergy Intermediate Nausea & Verified 10/23/20 23:02 Vomiting Sulfa (Sulfonamide Allergy Intermediate Itching Verified 10/23/20 23:02 Antibiotics) mercury (elemental) Allergy Rash/Hives Verified 10/23/20 23:02 Physical Exam Vitals: Vital Signs Temp Pulse Pulse Resp BP BP Pulse Ox 10/24/20 08:00 97.5 F L 64 18 142/72 94 L 10/24/20 07:01 97.8 F 64 18 165/75 10/24/20 05:07 98.0 F 58 L 18 158/62 99 10/24/20 04:37 98.2 F 69 18 151/60 99 10/24/20 04:27 98.9 F 70 18 164/62 10/24/20 04:08 98.9 F 70 18 164/62 100 10/24/20 02:22 98.5 F 66 18 138/54 100 10/24/20 02:06 98.9 F 59 L 18 151/50 100 10/24/20 01:52 98.9 F 59 L 18 151/50 10/24/20 01:42 99.0 F 53 L 18 147/64 100 10/24/20 01:22 98.5 F 57 L 20 143/51 99 10/24/20 00:01 97.8 F 72 18 113/45 100 10/23/20 23:45 98.4 F 84 20 124/46 92 L 10/23/20 23:31 97.6 F 70 18 97/34 10/23/20 23:21 97.5 F L 72 16 109/34 100 10/23/20 23:14 98.1 F 70 18 101/26 10/23/20 22:30 71 16 106/40 100 10/23/20 21:30 61 18 84/49 100 10/23/20 21:15 56 L 10/23/20 21:07 97.3 F L 56 L 16 87/26 100 Intake and Output 10/23/20 10/24/20 10/24/20 22:59 06:59 14:59 Intake Total 930 Balance 930 Intake: Blood Product 930 Rc As-1 Unit 310 [id number] Rc As-1 Unit 310 [id number] Rc As-1 Unit 310 [id number] Other: # Voids 1 1 Weight 118.841 kg 121.6 kg General appearance: The patient is alert, oriented, appears in no acute distress. HET: Head is normocephalic and atraumatic. Conjunctiva pink. Sclera anicteric. Neck: Supple without lymphadenopathy. Trachea midline. Heart: S1 S2. Regular rate and rhythm. Lungs: Diminished. Abdomen: Soft, nontender, nondistended with bowel sounds. No guarding or rigidity. Skin: No rashes. No jaundice. Extremities: Normal skin color and turgor. No pedal edema. Neurological: No focal deficits. Alert and oriented 3.. Results CBC & Chem 7: 10/24/20 05:20 10/24/20 05:20 Labs: Abnormal Lab Results - Last 24 Hours (Table) 10/23/20 10/23/20 10/23/20 Range/Units 21:40 21:40 21:40 RBC 1.57 L (3.80-5.40) m/uL Hgb 5.4 L* D (11.4-16.0) gm/dL Hct 15.9 L* (34.0-46.0) % MCV 101.1 H (80.0-100.0) fL RDW 24.9 H (11.5-15.5) % Plt Count 37 L (150-450) k/uL Macrocytosis Marked A Retic Count (0.5-2.0) % APTT 21.0 L (22.0-30.0) sec D-Dimer 1.69 H (<0.60) mg/L FEU Potassium (3.5-5.1) mmol/L Chloride (98-107) mmol/L Carbon Dioxide (22-30) mmol/L BUN 43 H (7-17) mg/dL Creatinine 1.45 H (0.52-1.04) mg/dL Glucose 175 H (74-99) mg/dL POC Glucose (mg/dL) (75-99) mg/dL Calcium 7.8 L (8.4-10.2) mg/dL Total Bilirubin <0.1 L (0.2-1.3) mg/dL AST (14-36) U/L ALT (4-34) U/L Creatine Kinase <20 L (30-135) U/L Total Protein 4.9 L (6.3-8.2) g/dL Albumin 2.7 L (3.5-5.0) g/dL Lipase (23-300) U/L Crossmatch 10/23/20 10/24/20 10/24/20 Range/Units 22:07 00:25 05:20 RBC 2.60 L (3.80-5.40) m/uL Hgb 8.4 L D (11.4-16.0) gm/dL Hct 24.3 L (34.0-46.0) % MCV (80.0-100.0) fL RDW 22.0 H (11.5-15.5) % Plt Count 28 L (150-450) k/uL Macrocytosis Retic Count (0.5-2.0) % APTT (22.0-30.0) sec D-Dimer (<0.60) mg/L FEU Potassium (3.5-5.1) mmol/L Chloride (98-107) mmol/L Carbon Dioxide (22-30) mmol/L BUN (7-17) mg/dL Creatinine (0.52-1.04) mg/dL Glucose (74-99) mg/dL POC Glucose (mg/dL) 202 H (75-99) mg/dL Calcium (8.4-10.2) mg/dL Total Bilirubin (0.2-1.3) mg/dL AST (14-36) U/L ALT (4-34) U/L Creatine Kinase (30-135) U/L Total Protein (6.3-8.2) g/dL Albumin (3.5-5.0) g/dL Lipase (23-300) U/L Crossmatch See Detail 10/24/20 10/24/20 10/24/20 Range/Units 05:20 05:31 06:03 RBC (3.80-5.40) m/uL Hgb (11.4-16.0) gm/dL Hct (34.0-46.0) % MCV (80.0-100.0) fL RDW (11.5-15.5) % Plt Count (150-450) k/uL Macrocytosis Retic Count 7.3 H (0.5-2.0) % APTT (22.0-30.0) sec D-Dimer (<0.60) mg/L FEU Potassium 5.2 H (3.5-5.1) mmol/L Chloride 110 H (98-107) mmol/L Carbon Dioxide 21 L (22-30) mmol/L BUN 48 H (7-17) mg/dL Creatinine 1.21 H (0.52-1.04) mg/dL Glucose 124 H (74-99) mg/dL POC Glucose (mg/dL) 133 H (75-99) mg/dL Calcium 7.7 L (8.4-10.2) mg/dL Total Bilirubin (0.2-1.3) mg/dL AST 40 H (14-36) U/L ALT 37 H (4-34) U/L Creatine Kinase (30-135) U/L Total Protein 5.1 L (6.3-8.2) g/dL Albumin 2.9 L (3.5-5.0) g/dL Lipase 550 H (23-300) U/L Crossmatch Assessment and Plan (1) Macrocytic anemia Narrative/Plan: This lady who presented to the emergency department with complaints of chest pain and weakness. She was noted have a hemoglobin of 5.4. She has a history of refractory anemia and follows with Dr. Siddiqui an outpatient basis and his transfusion every 2-3 weeks for the last year duration. She required 3 units of PRBC transfusion with a repeat hemoglobin today 8.4. She is denying any symptoms of GI bleed, denies any abdominal pain, nausea, vomiting, rectal bleeding or melena. She did have an EGD and colonoscopy in May 2019 that was unremarkable other than small colon polyps and a small bowel capsule endoscopy in October 2019 that was unremarkable. Current Visit: No Status: Acute Code(s): D53.9 - NUTRITIONAL ANEMIA, UNSPECIFIED SNOMED Code(s): 35629756 (2) Diabetes mellitus Current Visit: Yes Status: Acute Code(s): E11.9 - TYPE 2 DIABETES MELLITUS WITHOUT COMPLICATIONS SNOMED Code(s): 66825614 (3) Atrial fibrillation Current Visit: Yes Status: Acute Code(s): I48.91 - UNSPECIFIED ATRIAL FIBRILLATION SNOMED Code(s): 57031077 (4) Chest pain Current Visit: Yes Status: Acute Code(s): R07.9 - CHEST PAIN, UNSPECIFIED SNOMED Code(s): 35816722 (5) Generalized weakness Current Visit: Yes Status: Acute Code(s): R53.1 - WEAKNESS SNOMED Code(s): 08712534 Plan: 1. Daily CBC transfuse for hemoglobin less than 7 2. No need for any repeat endoscopic intervention at the present time 3. Continue regular diet 4. Continue with recommendations per hematology Thank you for this consultation, we will be on standby if further needed. Dr. Farheen Pena I agree with the dictator's note, documented as a scribe by Berta Renee.
[2020-10-24 16:20] LABS: Glucose,Whole Blood 139 mg/dL (75-99)
[2020-10-24] MEDS: metFORMIN 500 MG TAB PO SCH (16:58)
--- NOTE | 2020-10-24 17:06 | P.CONS ---
History of Present Illness - Reason for Consult Consult date: 10/24/20 anemia CKD, known Requesting physician: Alonso Norton - Chief Complaint severe, symptomatic anemia - History of Present Illness Ms. Pinto is a very pleasant female patient of Dr. Siddiqui with a history of right-sided breast cancer in 2008, treated with bilateral mastectomy, right axillary dissection and started on Arimidex. Patient did not follow-up for some time until 2011 when she ran out of Arimidex. she did have some trouble maintaining her appointments but ultimately she stayed on Arimidex until 2015- she was supposed to complete 10 years but could not afford. She did end up resuming in 2016. she was also seen in 2017 for greater saphenous vein superficial thrombosis. She had side effects to DOAC and was started on Coumadin. she is kind of lost to follow-up for a period of time, was seen at [facility] on 11/15 with a hemoglobin in the 6 range. GI workup was negative. She ended up having both anemia and thrombocytopenia 12/16. Lab workup was negative. Bone marrow biopsy and aspirate 12/19/19 revealed myelodysplasia with 25% of marrow cellularity. No increased blasts, cytogenetics were negative. PNH testing was negative. Patient was started on Procrit. This was unsuccessful, patient continued to require transfusions every 1-2 weeks. She started Luspatercept on 05/31/20. She had 1 cycle, missed cycle 2 because of hospital admission. Dose has been adjusted accordingly. She is now on the highest dose level, if she does not have a response in the next 3 or 4 doses of the medication it will have to be discontinued due to lack of response. Patient is admitted for anemia, she is status post 3 units, admitting hemoglobin of 5.4, hemoglobin 8.4 today. Patient noted increased fatigue but denied any dizziness, syncope, unusual bruising or bleeding. She had a Doppler of her lower extremities for swelling, no documentation of deep vein thrombosis. No other complaints on a 10 point review of systems Review of Systems 10 point ROS is neg except as stated in HPI Past Medical History Past Medical History: Atrial Fibrillation, Blood Disorder, Cancer, Diabetes Mellitus, Hyperlipidemia, Hypertension, Renal Disease, Sleep Apnea/CPAP/BIPAP, Thyroid Disorder Additional Past Medical History / Comment(s): Heart disease, ocular neuritis, refractory anemia, breast cancer, myelodyspasia, reblozyl injection every 3 weeks for anemia, had blood transfusion today Last Myocardial Infarction Date:: 2018 History of Any Multi-Drug Resistant Organisms: None Reported Past Surgical History: Appendectomy, Breast Surgery, Cholecystectomy, Heart Catheterization With Stent Additional Past Surgical History / Comment(s): bilateral masectomy, heart cath follow up in 2000 port-a-cath 2020 Past Anesthesia/Blood Transfusion Reactions: No Reported Reaction Additional Past Anesthesia/Blood Transfusion Reaction / Comm: Pt has received blood without reaction. Date of Last Stent Placement:: 1997 Past Psychological History: Depression Additional Psychological History / Comment(s): Pt has her daughter and son in law living with her. She ambulates with a rollator. Her daughter is her caregiver. She no longer drives, her daughter takes her to appts. She has a cpap, glucometer. Smoking Status: Former smoker Past Alcohol Use History: None Reported Additional Past Alcohol Use History / Comment(s): Patient was a smoker of 3 pac ks per day for 20 years and quit approximately 20 years ago. She denies any marijuana, illicit drug use. No alcohol use. She was at home with her daughter. She does have a CPAP and nebulizer. Patient is . Past Drug Use History: None Reported - Past Family History Father Family Medical History: Coronary Artery Disease (CAD), Hypertension, Myocardial Infarction ([place]) Additional Family Medical History / Comment(s): Father at age 72 from coronary artery disease with history of diabetes Mother Family Medical History: Coronary Artery Disease (CAD) Additional Family Medical History / Comment(s): Mother at age 72 with history of coronary artery disease and diabetes. Sister(s) Additional Family Medical History / Comment(s): Patient has 1 sister with no major medical problems. Patient does not have. His. Patient has 1 daughter with no major medical problems. No history of breast cancer. Medications and Allergies Home Medications Medication Instructions Recorded Confirmed Type Spironolactone [Aldactone] 25 mg PO DAILY 01/01/14 10/23/20 History Levothyroxine Sodium [Synthroid] 75 mcg PO DAILY 01/20/19 10/23/20 History Metoprolol Tartrate [Lopressor] 50 mg PO BID 01/20/19 10/23/20 History Venlafaxine HCl [Effexor XR] 75 mg PO HS 01/20/19 10/23/20 History Venlafaxine HCl [Effexor XR] 150 mg PO DAILY 01/20/19 10/23/20 History lisinopriL [Zestril] 5 mg PO HS 01/20/19 10/23/20 History Amiodarone [Cordarone] 200 mg PO BID 05/03/19 10/23/20 History Cyanocobalamin [Vitamin B-12] 500 mcg PO DAILY 05/03/19 10/23/20 History Atorvastatin [Lipitor] 80 mg PO HS 07/26/20 10/23/20 History Ergocalciferol [Vitamin D2 (1250 1,250 mcg PO Q14D 07/26/20 10/23/20 History Mcg = 77245 Iu)] Gabapentin 600 mg PO QID 07/26/20 10/23/20 History metFORMIN HCL [Glucophage] 1,000 mg PO AC-BID 07/26/20 10/23/20 History Folic Acid 1 mg PO DAILY tab 10/12/20 10/23/20 Rx Insulin Detemir (Levemir) [Levemir] 35 unit SQ HS 10/23/20 10/23/20 History Insulin Detemir (Levemir) [Levemir] 40 unit SQ AC-BRKFST 10/23/20 10/23/20 History Levothyroxine Sodium [Synthroid] 200 mcg PO DAILY 10/23/20 10/23/20 History Allergies Allergy/AdvReac Type Severity Reaction Status Date / Time fluoxetine HCl [From Prozac] Allergy Intermediate Itching Verified 10/23/20 23:02 gluten Allergy Intermediate Nausea & Verified 10/23/20 23:02 Vomiting Sulfa (Sulfonamide Allergy Intermediate Itching Verified 10/23/20 23:02 Antibiotics) mercury (elemental) Allergy Rash/Hives Verified 10/23/20 23:02 Physical Exam Vitals: Vital Signs Temp Pulse Pulse Resp BP BP Pulse Ox 10/24/20 08:00 97.5 F L 64 18 142/72 94 L 10/24/20 07:01 97.8 F 64 18 165/75 10/24/20 05:07 98.0 F 58 L 18 158/62 99 10/24/20 04:37 98.2 F 69 18 151/60 99 10/24/20 04:27 98.9 F 70 18 164/62 10/24/20 04:08 98.9 F 70 18 164/62 100 10/24/20 02:22 98.5 F 66 18 138/54 100 10/24/20 02:06 98.9 F 59 L 18 151/50 100 10/24/20 01:52 98.9 F 59 L 18 151/50 10/24/20 01:42 99.0 F 53 L 18 147/64 100 10/24/20 01:22 98.5 F 57 L 20 143/51 99 10/24/20 00:01 97.8 F 72 18 113/45 100 10/23/20 23:45 98.4 F 84 20 124/46 92 L 10/23/20 23:31 97.6 F 70 18 97/34 10/23/20 23:21 97.5 F L 72 16 109/34 100 10/23/20 23:14 98.1 F 70 18 101/26 10/23/20 22:30 71 16 106/40 100 10/23/20 21:30 61 18 84/49 100 10/23/20 21:15 56 L 10/23/20 21:07 97.3 F L 56 L 16 87/26 100 Intake and Output 10/23/20 10/24/20 10/24/20 22:59 06:59 14:59 Intake Total 930 Balance 930 Intake: Blood Product 930 As-1 Unit 310 [id number] Rc As-1 Unit 310 [id number] Rc As-1 Unit 310 [id number] Other: # Voids 1 1 Weight 118.841 kg 121.6 kg - Constitutional General appearance: cooperative, morbidly obese, no acute distress - EENT Eyes: anicteric sclerae, EOMI ENT: hearing grossly normal - Neck Neck: no lymphadenopathy - Respiratory Respiratory: bilateral: CTA - Cardiovascular Heart sounds: normal: S1, S2 Abnormal Heart Sounds: no systolic murmur, no diastolic murmur, no rub, no S3 Gallop, no S4 Gallop, no click, no other leg Peripheral Edema: bilateral: 1+ - Gastrointestinal General gastrointestinal: no absent bowel sounds, no decreased bowel sounds, no distended, no hepatomegaly, no hyperactive bowel sounds, normal bowel sounds, no organomegaly, no rigid, no scaphoid, soft, no splenomegaly, no tenderness, no umbilical hernia, no ventral hernia - Neurologic Neurologic: CNII-XII intact - Musculoskeletal Musculoskeletal: generalized weakness - Psychiatric Psychiatric: A&O x's 3, appropriate affect, intact judgment & insight Results CBC & Chem 7: 10/24/20 05:20 10/24/20 05:20 Labs: Abnormal Lab Results - Last 24 Hours (Table) 10/23/20 10/23/20 10/23/20 Range/Units 21:40 21:40 21:40 RBC 1.57 L (3.80-5.40) m/uL Hgb 5.4 L* D (11.4-16.0) gm/dL Hct 15.9 L* (34.0-46.0) % MCV 101.1 H (80.0-100.0) fL RDW 24.9 H (11.5-15.5) % Plt Count 37 L (150-450) k/uL Macrocytosis Marked A Retic Count (0.5-2.0) % APTT 21.0 L (22.0-30.0) sec D-Dimer 1.69 H (<0.60) mg/L FEU Potassium (3.5-5.1) mmol/L Chloride (98-107) mmol/L Carbon Dioxide (22-30) mmol/L BUN 43 H (7-17) mg/dL Creatinine 1.45 H (0.52-1.04) mg/dL Glucose 175 H (74-99) mg/dL POC Glucose (mg/dL) (75-99) mg/dL Calcium 7.8 L (8.4-10.2) mg/dL Total Bilirubin <0.1 L (0.2-1.3) mg/dL AST (14-36) U/L ALT (4-34) U/L Creatine Kinase <20 L (30-135) U/L Total Protein 4.9 L (6.3-8.2) g/dL Albumin 2.7 L (3.5-5.0) g/dL Lipase (23-300) U/L Crossmatch 10/23/20 10/24/20 10/24/20 Range/Units 22:07 00:25 05:20 RBC 2.60 L (3.80-5.40) m/uL Hgb 8.4 L D (11.4-16.0) gm/dL Hct 24.3 L (34.0-46.0) % MCV (80.0-100.0) fL RDW 22.0 H (11.5-15.5) % Plt Count 28 L (150-450) k/uL Macrocytosis Retic Count (0.5-2.0) % APTT (22.0-30.0) sec D-Dimer (<0.60) mg/L FEU Potassium (3.5-5.1) mmol/L Chloride (98-107) mmol/L Carbon Dioxide (22-30) mmol/L BUN (7-17) mg/dL Creatinine (0.52-1.04) mg/dL Glucose (74-99) mg/dL POC Glucose (mg/dL) 202 H (75-99) mg/dL Calcium (8.4-10.2) mg/dL Total Bilirubin (0.2-1.3) mg/dL AST (14-36) U/L ALT (4-34) U/L Creatine Kinase (30-135) U/L Total Protein (6.3-8.2) g/dL Albumin (3.5-5.0) g/dL Lipase (23-300) U/L Crossmatch See Detail 10/24/20 10/24/20 10/24/20 Range/Units 05:20 05:31 06:03 RBC (3.80-5.40) m/uL Hgb (11.4-16.0) gm/dL Hct (34.0-46.0) % MCV (80.0-100.0) fL RDW (11.5-15.5) % Plt Count (150-450) k/uL Macrocytosis Retic Count 7.3 H (0.5-2.0) % APTT (22.0-30.0) sec D-Dimer (<0.60) mg/L FEU Potassium 5.2 H (3.5-5.1) mmol/L Chloride 110 H (98-107) mmol/L Carbon Dioxide 21 L (22-30) mmol/L BUN 48 H (7-17) mg/dL Creatinine 1.21 H (0.52-1.04) mg/dL Glucose 124 H (74-99) mg/dL POC Glucose (mg/dL) 133 H (75-99) mg/dL Calcium 7.7 L (8.4-10.2) mg/dL Total Bilirubin (0.2-1.3) mg/dL AST 40 H (14-36) U/L ALT 37 H (4-34) U/L Creatine Kinase (30-135) U/L Total Protein 5.1 L (6.3-8.2) g/dL Albumin 2.9 L (3.5-5.0) g/dL Lipase 550 H (23-300) U/L Crossmatch Venous US: report reviewed Assessment and Plan (1) Symptomatic anemia Narrative/Plan: Status post 3 units of packed red blood cell with appropriate increase in patient's hemoglobin. Patient will continue stimulating factors for her hemoglobin, her next appointment is documented in the discharge summary Current Visit: Yes Status: Acute Priority: High Code(s): D64.9 - ANEMIA, UNSPECIFIED SNOMED Code(s): 129776756 (2) Myelodysplasia (myelodysplastic syndrome) Narrative/Plan: Patient has opted for supportive care only. Current Visit: Yes Status: Chronic Priority: Medium Code(s): D46.9 - MYELODYSPLASTIC SYNDROME, UNSPECIFIED SNOMED Code(s): 455795088 Plan: Doctor attests: I performed a history and physical examination of this patient, developed impression and plan of care, discussed with dictator. I agree with dictators note, documented as a scribe.
[2020-10-24 20:18] LABS: Glucose,Whole Blood 127 mg/dL (75-99)
[2020-10-24] MEDS ORDERED: lisinopriL 5 MG TAB PO SCH (21:00)
[2020-10-24] MEDS ORDERED: VENLAFAXINE HCL ER 75 MG CAP PO SCH (21:00)
[2020-10-24] MEDS ORDERED: INSULIN DETEMIR (LEVEMIR) 100 UNIT/ML SYR SQ SCH (21:00)
[2020-10-24] MEDS ORDERED: ATORVASTATIN 80 MG TAB PO SCH (21:00)
[2020-10-25 06:12] LABS: Glucose,Whole Blood 174 mg/dL (75-99)
[2020-10-25] MEDS: SODIUM CHLORIDE 0.9% 1,000 ML IV SCH (06:12)
[2020-10-25] MEDS ORDERED: LEVOTHYROXINE 75 MCG TAB PO SCH (06:30)
[2020-10-25] MEDS ORDERED: LEVOTHYROXINE 100 MCG TAB PO SCH (06:30)
[2020-10-25] MEDS: metFORMIN 500 MG TAB PO SCH (06:41)
[2020-10-25] MEDS ORDERED: PANTOPRAZOLE 40 MG TABLET PO SCH (07:30)
[2020-10-25] MEDS ORDERED: INSULIN DETEMIR (LEVEMIR) 100 UNIT/ML SYR SQ SCH (07:30)
[2020-10-25 08:03] VITALS: RESP 16; TEMP 98
[2020-10-25] MEDS: AMIODARONE 200 MG TAB PO SCH (08:07)
[2020-10-25] MEDS: GABAPENTIN 300 MG CAP PO SCH ×2 (08:08→12:43)
[2020-10-25 08:34] LABS: Anisocytosis Moderate; Basophils % (A) 1 %; Eosinophils # (A) 0.1 k/uL (0-0.7); Eosinophils % (A) 3 %; HCT 22.7 % (34.0-46.0); HGB 7.8 gm/dL (11.4-16.0); Lymphocytes # (A) 1.7 k/uL (1.0-4.8); Lymphocytes % (A) 37 %; MCH 32.2 pg (25.0-35.0); MCHC 34.2 g/dL (31.0-37.0); MCV 94.2 fL (80.0-100.0); Macrocytosis Slight; Mean Platelet Volume 8.7; Monocytes # (A) 0.4 k/uL (0-1.0); Monocytes % (A) 9 %; Neutrophils # (A) 2.2 k/uL (1.3-7.7); Neutrophils % (A) 47 %; Poikilocytosis Slight; RBC 2.42 m/uL (3.80-5.40); RDW 23.6 % (11.5-15.5); WBC 4.7 k/uL (3.8-10.6)
[2020-10-25 08:39] LABS: Platelet Count 33 k/uL (150-450)
[2020-10-25 08:59] LABS: Albumin 2.7 g/dL (3.5-5.0); Calcium 8.2 mg/dL (8.4-10.2); Magnesium 1.9 mg/dL (1.6-2.3); Potassium 5.5 mmol/L (3.5-5.1); Total Bilirubin 0.2 mg/dL (0.2-1.3); Total Protein 4.9 g/dL (6.3-8.2)
[2020-10-25] MEDS ORDERED: VENLAFAXINE HCL ER 150 MG CAP PO SCH (09:00)
[2020-10-25] MEDS ORDERED: CYANOCOBALAMIN 500 MCG TAB PO SCH (09:00)
[2020-10-25] MEDS ORDERED: SPIRONOLACTONE 25 MG TAB PO SCH (09:00)
[2020-10-25] MEDS ORDERED: FOLIC ACID 1 MG TAB PO SCH (09:00)
--- NOTE | 2020-10-25 09:35 | P.DS ---
Providers Date of admission: 10/23/20 22:44 Expected date of discharge: 10/25/20 Attending physician: Bereket Holliday Consults: 10/23/20 22:45 Consult Physician Routine Consulting Provider: Saroj Siddiqui Consult Reason/Comments: known Do you want consulting provider notified?: Yes 10/23/20 22:52 Consult Physician Routine Consulting Provider: Sola Summers Consult Reason/Comments: cp Do you want consulting provider notified?: Yes Consult Physician Urgent Consulting Provider: Mick Baker Consult Reason/Comments: anemia Do you want consulting provider notified?: Yes Primary care physician: Jaxon Palacios [facility] Course: History of present illness This is a 75-year-old patient of Dr. Palacios with past medical history of right- sided breast cancer status post bilateral mastectomy in 2008, hypertension, hyperlipidemia, paroxysmal atrial fibrillation, diabetes mellitus type 2, fibromyalgia, generalized anxiety disorder and recurrent depression, obstructive sleep apnea with CPAP, gastroesophageal reflux disease, chronic kidney disease stage III, myelodysplastic syndrome with pancytopenia, chronic anemia requiring blood transfusions every 1-2 weeks. She had a recent hospitalization October 10 through October 12 at which time she was treated for severe anemia status post 1 unit of packed RBCs with hemoglobin at the time of discharge is 7.2. She came into [facility] emergency center due to chest pain and weakness. She complains of a chest tightness going around the level of her nipple on the right chest and her back. She states she took aspirin but did not seem to help and that is why she ended up calling EMS. She did have nitroglycerin with EMS with no improvement of her chest pain. The pain hasn't woken her from sleep. Patient was found to have a blood pressure of 87/26, heart rate 56, afebrile, pulse ox 100%. Hemoglobin came back in 5.4 she's been transfused 3 units of packed RBCs with repeat hemoglobin of 8.4. Blood work this morning also revealed platelet count of 28, WBC 4.9. Sodium 137, potassium 5.2, chloride 110, CO2 21, BUN 48 and creatinine 1.21 improved from 1.45. Baseline creatinine is 1.1-1.2. Blood sugars are running between 133 and 202. AST 40, ALT 37, alkaline phosphatase 79. Troponins of the negative on 3 draws. Lipase 550. Chest x-ray shows no acute cardiopulmonary disease. Patient has increased edema to the left lower extremity and right calf tenderness for which ultrasound bilateral lower extremities ordered. Consult in place for oncology, GI and cardiology. 10/25: Patient was seen by cardiology yesterday and signed off. Patient also seen by GI with no plan for repeat endoscopy. Oncology plans to continue stimulating factors for her hemoglobin and follow-up on her next appointment and transfuse as necessary in the outpatient setting. Ultrasound of bilateral lower extremity is negative for DVT. Patient has been afebrile, heart rate 85, blood pressure 92/56 and pulse ox 95% on room air. Repeat blood work reveals WBC 4.7, hemoglobin 7.8, platelet count 33. Sodium 140, potassium 5.5, chloride 110, CO2 24, BUN 62 and creatinine 1.33. Blood sugars running between 127 and 174. Aldactone dose was held this morning patient will resume outpatient. Haptoglobin level is pending at the time of discharge. Patient will be discharged home today in stable condition. Assessment and plan 1. Severe anemia. 2. History of myelodysplastic syndrome. 3. Lower extremity edema, Ruled out DVT. 4. Chronic kidney disease stage III. 5. GERD. 6. Diabetes mellitus type 2. 7. Hypertension. 8. Paroxysmal atrial fibrillation. 9. Hyperlipidemia. 10. Hypothyroidism. 11. Fibromyalgia, stable. 12. History of breast cancer status post bilateral mastectomy. 13. Generalized anxiety disorder recurrent depression. 14. Obstructive sleep apnea. Discharge plan Return home Impression and plan of care have been directed as dictated by the signing physician. Abril Riley nurse practitioner acting as scribe for signing physician. Patient Condition at Discharge: Good Plan - Discharge Summary Discharge Rx Participant: No New Discharge Prescriptions: Continue Spironolactone [Aldactone] 25 mg PO DAILY Venlafaxine HCl [Effexor XR] 150 mg PO DAILY Venlafaxine HCl [Effexor XR] 75 mg PO HS lisinopriL [Zestril] 5 mg PO HS Levothyroxine Sodium [Synthroid] 75 mcg PO DAILY Cyanocobalamin [Vitamin B-12] 500 mcg PO DAILY Amiodarone [Cordarone] 200 mg PO BID Ergocalciferol [Vitamin D2 (1250 Mcg = 32917 Iu)] 1,250 mcg PO Q14D Levothyroxine Sodium [Synthroid] 200 mcg PO DAILY Insulin Detemir (Levemir) [Levemir] 40 unit SQ AC-BRKFST Insulin Detemir (Levemir) [Levemir] 35 unit SQ HS metFORMIN HCL [Glucophage] 1,000 mg PO AC-BID Atorvastatin [Lipitor] 80 mg PO HS Gabapentin 600 mg PO QID Folic Acid 1 mg PO DAILY tab Discontinued Metoprolol Tartrate [Lopressor] 50 mg PO BID Aspirin [Adult Low Dose Aspirin EC] 81 mg PO DAILY Discharge Medication List Spironolactone [Aldactone] 25 mg PO DAILY 01/01/14 [History] Levothyroxine Sodium [Synthroid] 75 mcg PO DAILY 01/20/19 [History] Venlafaxine HCl [Effexor XR] 75 mg PO HS 01/20/19 [History] Venlafaxine HCl [Effexor XR] 150 mg PO DAILY 01/20/19 [History] lisinopriL [Zestril] 5 mg PO HS 01/20/19 [History] Amiodarone [Cordarone] 200 mg PO BID 05/03/19 [History] Cyanocobalamin [Vitamin B-12] 500 mcg PO DAILY 05/03/19 [History] Atorvastatin [Lipitor] 80 mg PO HS 07/26/20 [History] Ergocalciferol [Vitamin D2 (1250 Mcg = 87917 Iu)] 1,250 mcg PO Q14D 07/26/20 [History] Gabapentin 600 mg PO QID 07/26/20 [History] metFORMIN HCL [Glucophage] 1,000 mg PO AC-BID 07/26/20 [History] Folic Acid 1 mg PO DAILY tab 10/12/20 [Rx] Insulin Detemir (Levemir) [Levemir] 35 unit SQ HS 10/23/20 [History] Insulin Detemir (Levemir) [Levemir] 40 unit SQ AC-BRKFST 10/23/20 [History] Levothyroxine Sodium [Synthroid] 200 mcg PO DAILY 10/23/20 [History] Follow up Appointment(s)/Referral(s): Saroj Siddiqui MD [STAFF PHYSICIAN] - 10/28/20 2:00 pm (this appointment is at [facility]) Jaxon Palacios MD [Primary Care Provider] - 1 Week (Patient to make appointment, office is closed at this time. ) Rosalva Mcwilliams MD [STAFF PHYSICIAN] - 11/05/20 2:15 pm Patient Instructions/Handouts: Myelodysplastic Syndromes (DC), Leg Edema (ED), Type 2 Diabetes Management for Adults (DC)
[2020-10-25 11:46] LABS: Glucose,Whole Blood 133 mg/dL (75-99)
[2020-10-25 12:43] VITALS: BP 112/53; PULSE 75
--- NOTE | 2020-10-25 21:12 | P.PN ---
Subjective Progress Note Date: 10/25/20 Hemoglobin stable this am, no transfusion needed Objective - Vital Signs Vital signs: Vital Signs Temp 98 F 10/25/20 08:00 Pulse 85 10/25/20 08:00 Resp 16 10/25/20 08:00 BP 92/56 10/25/20 08:00 Pulse Ox 95 10/25/20 08:00 Intake & Output 10/24/20 10/25/20 10/25/20 18:59 06:59 18:59 Intake Total 240 Balance 240 Weight 121.1 kg Intake: Oral 240 Other: # Voids 1 1 - Exam - Constitutional General appearance: cooperative, morbidly obese, no acute distress - EENT Eyes: anicteric sclerae, EOMI ENT: hearing grossly normal - Neck Neck: no lymphadenopathy - Respiratory Respiratory: bilateral: CTA - Cardiovascular Heart sounds: normal: S1, S2 Abnormal Heart Sounds: no systolic murmur, no diastolic murmur, no rub, no S3 Gallop, no S4 Gallop, no click, no other leg Peripheral Edema: bilateral: 1+ - Gastrointestinal General gastrointestinal: no absent bowel sounds, no decreased bowel sounds, no distended, no hepatomegaly, no hyperactive bowel sounds, normal bowel sounds, no organomegaly, no rigid, no scaphoid, soft, no splenomegaly, no tenderness, no umbilical hernia, no ventral hernia - Neurologic Neurologic: CNII-XII intact - Musculoskeletal Musculoskeletal: generalized weakness - Psychiatric Psychiatric: A&O x's 3, appropriate affect, intact judgment & insight - Labs CBC & Chem 7: 10/25/20 06:32 10/25/20 06:32 Labs: Abnormal Lab Results - Last 24 Hours (Table) 10/24/20 10/24/20 10/24/20 Range/Units 05:31 11:45 16:19 Retic Count 7.3 H (0.5-2.0) % POC Glucose (mg/dL) 102 H 139 H (75-99) mg/dL 10/24/20 10/25/20 Range/Units 20:07 05:55 Retic Count (0.5-2.0) % POC Glucose (mg/dL) 127 H 174 H (75-99) mg/dL Assessment and Plan Plan: Assessment and Plan (1) Symptomatic anemia Narrative/Plan: stable this am, ok for discharge from oncology standpoint Patient has follow-up scheduled Current Visit: Yes Status: Acute Priority: High Code(s): D64.9 - ANEMIA, UNSPECIFIED SNOMED Code(s): 236560790 (2) Myelodysplasia (myelodysplastic syndrome) Narrative/Plan: Patient has opted for supportive care only. Hemoglobin stable, no tranfusion needed Current Visit: Yes Status: Chronic Priority: Medium Code(s): D46.9 - MYELODYSPLASTIC SYNDROME, UNSPECIFIED SNOMED Code(s): 368376552
== END 2020-10-25 13:24 | disposition home or self-care (01) | DRG 812 ==
LOC: EC 20:58 → 5NMEDONC 22:44 → 3SCARD 23:22
PROVIDERS: ADMIT Internal Medicine Geriatric Medicine; ATTEND Internal Medicine Geriatric Medicine
PROC: 30233N1 Transfusion of Nonautologous Red Blood Cells into Peripheral Vein, Percutaneous Approach (ICD-10-PCS; principal; 2020-10-23)
DX: D46.4 Refractory anemia, unspecified (principal); F33.9 Major depressive disorder, recurrent, unspecified; I24.8 Other forms of acute ischemic heart disease; D61.818 Other pancytopenia; Z68.43 Body mass index [BMI] 50.0-59.9, adult; Z20.822 Contact with and (suspected) exposure to COVID-19; D53.9 Nutritional anemia, unspecified; D46.9 Myelodysplastic syndrome, unspecified; N18.30 Chronic kidney disease, stage 3 unspecified; I48.0 Paroxysmal atrial fibrillation; D69.6 Thrombocytopenia, unspecified; J44.9 Chronic obstructive pulmonary disease, unspecified; E03.9 Hypothyroidism, unspecified; E11.22 Type 2 diabetes mellitus with diabetic chronic kidney disease; E78.00 Pure hypercholesterolemia, unspecified; E78.5 Hyperlipidemia, unspecified; F41.1 Generalized anxiety disorder; G47.33 Obstructive sleep apnea (adult) (pediatric); I12.9 Hypertensive chronic kidney disease with stage 1 through stage 4 chronic kidney disease, or unspecified chronic kidney disease; I25.10 Atherosclerotic heart disease of native coronary artery without angina pectoris; E66.01 Morbid (severe) obesity due to excess calories; I25.2 Old myocardial infarction; I35.0 Nonrheumatic aortic (valve) stenosis; K21.9 Gastro-esophageal reflux disease without esophagitis; M79.7 Fibromyalgia; Z79.4 Long term (current) use of insulin; Z79.82 Long term (current) use of aspirin; Z79.890 Hormone replacement therapy; Z79.899 Other long term (current) drug therapy; Z85.3 Personal history of malignant neoplasm of breast; Z87.19 Personal history of other diseases of the digestive system; Z87.891 Personal history of nicotine dependence; Z90.13 Acquired absence of bilateral breasts and nipples; Z79.01 Long term (current) use of anticoagulants; Z88.8 Allergy status to other drugs, medicaments and biological substances; Z91.02 Food additives allergy status; Z91.018 Allergy to other foods; Z88.2 Allergy status to sulfonamides; Z90.49 Acquired absence of other specified parts of digestive tract
CPT/HCPCS: 36415; 71046; 80053; 82550; 83010; 83690; 83735; 83880; 84100; 84484; 85025; 85045; 85379; 85610; 85730; 86850; 86900; 86901; 86920; 93005; 93970; 96360; 96361; 99291

== ENCOUNTER 2020-10-28 14:28 | Inpatient (IN) | payer MEDICARE ==
--- NOTE | 2020-10-28 15:52 | ED ---
General Adult HPI - General Chief complaint: Recheck/Abnormal Lab/Rx Stated complaint: Low Hgb, Dr Siddiqui sent pt Time Seen by Provider: 10/28/20 15:07 Source: patient Mode of arrival: ambulatory Limitations: no limitations - History of Present Illness Initial comments: Dictation was produced using [employer] dictation software. please excuse any grammatical, word or spelling errors. Chief Complaint: 75-year-old female sent to the emergency department for oncologist for hemoglobin of 5.0 History of Present Illness: She is 75-year-old female she has past medical history of A. fib, blood disorder, dyslipidemia and hypertension. She has history of anemia. Patient is having some mild vaginal bleeding. Last week she had found to be anemic with a hemoglobin 5.0. She was given a transfusion. Patient states that she feels slightly weak. She struggled with anemia before. She was told that she has a blood cell producing problem. She denies any black stools. Denies any abdominal pain pelvic pain. She has perhaps had some mild vaginal bleeding. She has history of ovarian cancer. Patient denies any abdominal pain. No lower back pain. No hip pain. At rest she feels fine however she does get slightly lightheaded with any exertional activity. She takes and a coagulation medications for A. fib. The ROS documented in this emergency department record has been reviewed and confirmed by me. Those systems with pertinent positive or negative responses have been documented in the HPI. All other systems are other negative and/or noncontributory. PHYSICAL EXAM: General Impression: Alert and oriented x3, not in acute distress HEENT: Normocephalic atraumatic, extra-ocular movements intact, pupils equal and reactive to light bilaterally, mucous membranes moist. Cardiovascular: Heart regular rate and rhythm Chest: Able to complete full sentences, no retractions, no tachypnea Abdomen: abdomen soft, non-tender, non-distended, no organomegaly Musculoskeletal: Pulses present and equal in all extremities, no peripheral edema Motor: no focal deficits noted Neurological: CN II-XII grossly intact, no focal motor or sensory deficits noted Skin: Intact with no visualized rashes Psych: Normal affect and mood Rectal exam: No gross blood on digital rectal exam ED course: 75-year-old female presents to the emergency department for anemia. Oncologist called earlier today and spoke with Dr. Hays say that they should ex pect patient to the emergency department. The request was that patient be consulted for IVC filter due to problems with anemia. Chart review was performed. Patient had an anemia of 5.4 on October 23. October 24 her hemoglobin was 8.4. October 25 her hemoglobin was 7.8. Patient does not have any symptoms of bleeding. More information was obtained from daughter at the bedside. Patient allegedly has not had any eloquent since several weeks due to recent bleeding issues. Laboratory evaluation obtained. Hemoglobin 6.2. Hematocrit of 18.0. Elevated RDW of 24.8. Coag panel is negative. Metabolic panel is within acceptable limits. Stool occult blood is positive. Patient ordered for 1 unit tra nsfusion. Case discussed with president Dr. Reich does not feel patient meets criteria for ICU admission. Patient will be admitted to telemetry. GI is consulted. Case discussed with Dr. Rawls. - Related Data Home Medications Medication Instructions Recorded Confirmed Spironolactone [Aldactone] 25 mg PO DAILY 01/01/14 10/28/20 Levothyroxine Sodium [Synthroid] 75 mcg PO DAILY 01/20/19 10/28/20 Venlafaxine HCl [Effexor XR] 75 mg PO HS 01/20/19 10/28/20 Venlafaxine HCl [Effexor XR] 150 mg PO DAILY 01/20/19 10/28/20 lisinopriL [Zestril] 5 mg PO HS 01/20/19 10/28/20 Amiodarone [Cordarone] 200 mg PO BID 05/03/19 10/28/20 Cyanocobalamin [Vitamin B-12] 500 mcg PO DAILY 05/03/19 10/28/20 Atorvastatin [Lipitor] 80 mg PO HS 07/26/20 10/28/20 Ergocalciferol [Vitamin D2 (1250 1,250 mcg PO Q14D 07/26/20 10/28/20 Mcg = 97093 Iu)] Gabapentin 600 mg PO QID 07/26/20 10/28/20 metFORMIN HCL [Glucophage] 1,000 mg PO AC-BID 07/26/20 10/28/20 Insulin Detemir (Levemir) [Levemir] 35 unit SQ HS 10/23/20 10/28/20 Insulin Detemir (Levemir) [Levemir] 40 unit SQ AC-BRKFST 10/23/20 10/28/20 Levothyroxine Sodium [Synthroid] 200 mcg PO DAILY 10/23/20 10/28/20 Docusate [Colace] 100 mg PO DAILY 10/28/20 10/28/20 Furosemide [Lasix] 20 mg PO HS 10/28/20 10/28/20 Furosemide [Lasix] 40 mg PO DAILY 10/28/20 10/28/20 Previous Rx's Medication Instructions Recorded Folic Acid 1 mg PO DAILY tab 10/12/20 Allergies Allergy/AdvReac Type Severity Reaction Status Date / Time fluoxetine HCl [From Prozac] Allergy Intermediate Itching Verified 10/28/20 16:12 gluten Allergy Intermediate Nausea & Verified 10/28/20 16:12 Vomiting Sulfa (Sulfonamide Allergy Intermediate Itching Verified 10/28/20 16:12 Antibiotics) mercury (elemental) Allergy Rash/Hives Verified 10/28/20 16:12 Review of Systems ROS Statement: Those systems with pertinent positive or pertinent negative responses have been documented in the HPI. ROS Other: All systems not noted in ROS Statement are negative. Past Medical History Past Medical History: Atrial Fibrillation, Blood Disorder, Cancer, Diabetes Mellitus, Hyperlipidemia, Hypertension, Renal Disease, Sleep Apnea/CPAP/BIPAP, Thyroid Disorder Additional Past Medical History / Comment(s): Heart disease, ocular neuritis, refractory anemia, breast cancer, myelodyspasia, reblozyl injection every 3 weeks for anemia, had blood transfusion today Last Myocardial Infarction Date:: 2018 History of Any Multi-Drug Resistant Organisms: None Reported Past Surgical History: Appendectomy, Breast Surgery, Cholecystectomy, Heart Catheterization With Stent Additional Past Surgical History / Comment(s): bilateral masectomy, heart cath follow up in 2000 port-a-cath 2020 Past Anesthesia/Blood Transfusion Reactions: No Reported Reaction Additional Past Anesthesia/Blood Transfusion Reaction / Comment(s): Pt has received blood without reaction. Date of Last Stent Placement:: 1997 Past Psychological History: Depression Smoking Status: Former smoker Past Alcohol Use History: None Reported Past Drug Use History: None Reported - Past Family History Father Family Medical History: Coronary Artery Disease (CAD), Hypertension, Myocardial Infarction ([place]) Additional Family Medical History / Comment(s): Father at age 72 from coron joceline artery disease with history of diabetes Mother Family Medical History: Coronary Artery Disease (CAD) Additional Family Medical History / Comment(s): Mother at age 72 with history of coronary artery disease and diabetes. Sister(s) Additional Family Medical History / Comment(s): Patient has 1 sister with no major medical problems. Patient does not have. His. Patient has 1 daughter with no major medical problems. No history of breast cancer. General Exam Limitations: no limitations Course Vital Signs 10/28/20 14:43 Temperature 98.1 F Pulse Rate 63 Respiratory 16 Rate Blood Pressure 114/49 O2 Sat by Pulse 96 Oximetry Medical Decision Making - Lab Data Result diagrams: 10/28/20 14:50 10/28/20 15:49 Lab Results 10/28/20 10/28/20 10/28/20 Range/Units 14:50 15:40 15:49 WBC 6.9 (3.8-10.6) k/uL RBC 1.86 L (3.80-5.40) m/uL Hgb 6.2 L* D (11.4-16.0) gm/dL Hct 18.0 L* (34.0-46.0) % MCV 96.9 (80.0-100.0) fL MCH 33.3 (25.0-35.0) pg MCHC 34.4 (31.0-37.0) g/dL RDW 24.8 H (11.5-15.5) % Plt Count 41 L (150-450) k/uL MPV 9.3 Neutrophils % 70 % Lymphocytes % 18 % Monocytes % 6 % Eosinophils % 2 % Basophils % 0 % Neutrophils # 4.8 (1.3-7.7) k/uL Lymphocytes # 1.3 (1.0-4.8) k/uL Monocytes # 0.4 (0-1.0) k/uL Eosinophils # 0.2 (0-0.7) k/uL Basophils # 0.0 (0-0.2) k/uL Manual Slide Review Performed Polychromasia Present Poikilocytosis Slight Anisocytosis Marked Anisocytosis (manual) Present Macrocytosis Moderate PT (9.0-12.0) sec INR (<1.2) APTT (22.0-30.0) sec Sodium 135 L (137-145) mmol/L Potassium 5.3 H (3.5-5.1) mmol/L Chloride 109 H (98-107) mmol/L Carbon Dioxide 15 L (22-30) mmol/L Anion Gap 11 mmol/L BUN 46 H (7-17) mg/dL Creatinine 1.33 H (0.52-1.04) mg/dL Est GFR (CKD-EPI)AfAm 45 (>60 ml/min/1.73 sqM) Est GFR (CKD-EPI)NonAf 39 (>60 ml/min/1.73 sqM) Glucose 82 (74-99) mg/dL Plasma Lactic Acid Jeffry (0.7-2.0) mmol/L Calcium 8.5 (8.4-10.2) mg/dL Magnesium 1.9 (1.6-2.3) mg/dL Total Bilirubin 0.1 L (0.2-1.3) mg/dL AST 32 (14-36) U/L ALT 32 (4-34) U/L Alkaline Phosphatase 99 (38-126) U/L Troponin I (0.000-0.034) ng/mL Total Protein 5.5 L (6.3-8.2) g/dL Albumin 3.3 L (3.5-5.0) g/dL Stool Occult Blood (Negative) Blood Type A Positive Blood Type Recheck A Pos Bld Type Recheck Status No Antibody Screen NEGATIVE Crossmatch See Detail Spec Expiration Date 10/31/2020 - 234810/28/20 10/28/20 10/28/20 Range/Units 15:49 15:49 15:49 WBC (3.8-10.6) k/uL RBC (3.80-5.40) m/uL Hgb (11.4-16.0) gm/dL Hct (34.0-46.0) % MCV (80.0-100.0) fL MCH (25.0-35.0) pg MCHC (31.0-37.0) g/dL RDW (11.5-15.5) % Plt Count (150-450) k/uL MPV Neutrophils % % Lymphocytes % % Monocytes % % Eosinophils % % Basophils % % Neutrophils # (1.3-7.7) k/uL Lymphocytes # (1.0-4.8) k/uL Monocytes # (0-1.0) k/uL Eosinophils # (0-0.7) k/uL Basophils # (0-0.2) k/uL Manual Slide Review Polychromasia Poikilocytosis Anisocytosis Anisocytosis (manual) Macrocytosis PT 9.8 (9.0-12.0) sec INR 0.9 (<1.2) APTT 22.7 (22.0-30.0) sec Sodium (137-145) mmol/L Potassium (3.5-5.1) mmol/L Chloride (98-107) mmol/L Carbon Dioxide (22-30) mmol/L Anion Gap mmol/L BUN (7-17) mg/dL Creatinine (0.52-1.04) mg/dL Est GFR (CKD-EPI)AfAm (>60 ml/min/1.73 sqM) Est GFR (CKD-EPI)NonAf (>60 ml/min/1.73 sqM) Glucose (74-99) mg/dL Plasma Lactic Acid Jeffry 5.5 H* (0.7-2.0) mmol/L Calcium (8.4-10.2) mg/dL Magnesium (1.6-2.3) mg/dL Total Bilirubin (0.2-1.3) mg/dL AST (14-36) U/L ALT (4-34) U/L Alkaline Phosphatase (38-126) U/L Troponin I (0.000-0.034) ng/mL Total Protein (6.3-8.2) g/dL Albumin (3.5-5.0) g/dL Stool Occult Blood Positive H (Negative) Blood Type Blood Type Recheck Bld Type Recheck Status Antibody Screen Crossmatch Spec Expiration Date 10/28/20 Range/Units 15:49 WBC (3.8-10.6) k/uL RBC (3.80-5.40) m/uL Hgb (11.4-16.0) gm/dL Hct (34.0-46.0) % MCV (80.0-100.0) fL MCH (25.0-35.0) pg MCHC (31.0-37.0) g/dL RDW (11.5-15.5) % Plt Count (150-450) k/uL MPV Neutrophils % % Lymphocytes % % Monocytes % % Eosinophils % % Basophils % % Neutrophils # (1.3-7.7) k/uL Lymphocytes # (1.0-4.8) k/uL Monocytes # (0-1.0) k/uL Eosinophils # (0-0.7) k/uL Basophils # (0-0.2) k/uL Manual Slide Review Polychromasia Poikilocytosis Anisocytosis Anisocytosis (manual) Macrocytosis PT (9.0-12.0) sec INR (<1.2) APTT (22.0-30.0) sec Sodium (137-145) mmol/L Potassium (3.5-5.1) mmol/L Chloride (98-107) mmol/L Carbon Dioxide (22-30) mmol/L Anion Gap mmol/L BUN (7-17) mg/dL Creatinine (0.52-1.04) mg/dL Est GFR (CKD-EPI)AfAm (>60 ml/min/1.73 sqM) Est GFR (CKD-EPI)NonAf (>60 ml/min/1.73 sqM) Glucose (74-99) mg/dL Plasma Lactic Acid Jeffry (0.7-2.0) mmol/L Calcium (8.4-10.2) mg/dL Magnesium (1.6-2.3) mg/dL Total Bilirubin (0.2-1.3) mg/dL AST (14-36) U/L ALT (4-34) U/L Alkaline Phosphatase (38-126) U/L Troponin I <0.012 (0.000-0.034) ng/mL Total Protein (6.3-8.2) g/dL Albumin (3.5-5.0) g/dL Stool Occult Blood (Negative) Blood Type Blood Type Recheck Bld Type Recheck Status Antibody Screen Crossmatch Spec Expiration Date Critical Care Time Critical Care Time: Yes Total Critical Care Time: 33 Disposition Clinical Impression: Anemia, GI bleed Disposition: ADMITTED IP TO THIS [facility] Condition: Critical Referrals: Jaxon Palacios MD [Primary Care Provider] - 1-2 days
[2020-10-28 16:06] LABS: Anisocytosis Marked; Basophils % (A) 0 %; Eosinophils # (A) 0.2 k/uL (0-0.7); Eosinophils % (A) 2 %; Lymphocytes # (A) 1.3 k/uL (1.0-4.8); Lymphocytes % (A) 18 %; MCH 33.3 pg (25.0-35.0); MCHC 34.4 g/dL (31.0-37.0); MCV 96.9 fL (80.0-100.0); Macrocytosis Moderate; Mean Platelet Volume 9.3; Monocytes # (A) 0.4 k/uL (0-1.0); Monocytes % (A) 6 %; Neutrophils # (A) 4.8 k/uL (1.3-7.7); Neutrophils % (A) 70 %; Poikilocytosis Slight; RBC 1.86 m/uL (3.80-5.40); RDW 24.8 % (11.5-15.5); WBC 6.9 k/uL (3.8-10.6)
[2020-10-28 16:24] LABS: Albumin 3.3 g/dL (3.5-5.0); Calcium 8.5 mg/dL (8.4-10.2); INR 0.9 (<1.2); Magnesium 1.9 mg/dL (1.6-2.3); Partial Thromboplastin Time 22.7 sec (22.0-30.0); Potassium 5.3 mmol/L (3.5-5.1); Prothrombin Time 9.8 sec (9.0-12.0); Total Bilirubin 0.1 mg/dL (0.2-1.3); Total Protein 5.5 g/dL (6.3-8.2)
[2020-10-28 16:33] LABS: HGB 6.2 gm/dL (11.4-16.0)
[2020-10-28 16:56] LABS: Anisocytosis (M) Present; Platelet Count 41 k/uL (150-450); Polychromasia Present
[2020-10-28] MEDS ORDERED: ONDANSETRON 4 MG/2 ML VIAL IVP PRN (16:58)
[2020-10-28] MEDS ORDERED: NALOXONE 0.4 MG/ML 1 ML VIAL IV PRN (16:58)
[2020-10-28] MEDS: SODIUM CHLORIDE 0.9% 1,000 ML IV SCH (19:50)
[2020-10-28] MEDS: PANTOPRAZOLE 40 MG/10 ML VIAL IVP SCH (21:10)
[2020-10-29] MEDS: ACETAMINOPHEN TAB 325 MG TAB PO PRN ×2 (01:36→11:27)
[2020-10-29] MEDS: GABAPENTIN 300 MG CAP PO SCH ×5 (02:27→20:56)
[2020-10-29] MEDS: SODIUM CHLORIDE 0.9% 1,000 ML IV SCH ×2 (02:36→15:10)
[2020-10-29] MEDS ORDERED: FLUTICASONE 50MCG/SPRAY NASAL 16GM EA NOSTRIL PRN (03:58)
[2020-10-29] MEDS: LEVOTHYROXINE 100 MCG TAB PO SCH (06:47)
[2020-10-29] MEDS: LEVOTHYROXINE 75 MCG TAB PO SCH (06:47)
[2020-10-29 09:43] LABS: Anisocytosis Moderate; Basophils % (A) 0 %; Eosinophils # (A) 0.1 k/uL (0-0.7); Eosinophils % (A) 3 %; HCT 20.8 % (34.0-46.0); Lymphocytes # (A) 0.8 k/uL (1.0-4.8); Lymphocytes % (A) 28 %; MCH 32.8 pg (25.0-35.0); MCHC 33.8 g/dL (31.0-37.0); Macrocytosis Slight; Mean Platelet Volume 8.5; Monocytes # (A) 0.3 k/uL (0-1.0); Monocytes % (A) 10 %; Neutrophils # (A) 1.6 k/uL (1.3-7.7); Neutrophils % (A) 56 %; Poikilocytosis Slight; RBC 2.14 m/uL (3.80-5.40); RDW 22.5 % (11.5-15.5); WBC 2.9 k/uL (3.8-10.6)
[2020-10-29 09:54] LABS: Platelet Count 30 k/uL (150-450)
[2020-10-29] MEDS: PANTOPRAZOLE 40 MG/10 ML VIAL IVP SCH ×2 (10:22→20:57)
--- NOTE | 2020-10-29 12:15 | P.HPIM ---
History of Present Illness H&P Date: 10/29/20 History of present illness This is a 75-year-old patient of Dr. Palacios with past medical history of right- sided breast cancer status post bilateral mastectomy in 2008, hypertension, hyperlipidemia, paroxysmal atrial fibrillation, diabetes mellitus type 2, fibromyalgia, generalized anxiety disorder and recurrent depression, obstructive sleep apnea with CPAP, gastroesophageal reflux disease, chronic kidney disease stage III, myelodysplastic syndrome with pancytopenia, chronic anemia requiring blood transfusions every 1-2 weeks. She had a recent hospitalization October 10 through October 12 at which time she was treated for severe anemia status post 1 unit of packed RBCs with hemoglobin at the time of discharge is 7.2. He was again admitted October 23 through October 25 and received 5.4. Patient denies having any bloody stools, no tarry stools. No vaginal bleeding. No unusual bleeding from other source. She denies having abdominal pain. She states she normally has firm stools but is taking stool softeners. Patient's daughter was contacted which patient had approved. She also agrees the patient has had no source of bleeding and was seen by oncology with recommendations, and the hospital for evaluation. Hemoglobin was 6.2 and patient was transfused 1 unit of packed RBCs. Repeat hemoglobin this morning is 7.0. Oncology and GI are on consult. Review Of Systems: Constitutional: No fever, no chills, no night sweats. No weight change. R eports weakness and fatigue no lethargy. No daytime sleepiness. EENT: No headache. No blurred vision or double vision, no loss of vision. No loss of Hearing, no ringing in the ears, no dizziness. No nasal drainage or congestion. No epistaxis. No sore throat. Lungs: No shortness of breath, cough, no sputum production. No wheezing. Shortness of breath with exertion. Cardiovascular: Denies chest pain, reports chronic lower extremity edema. No palpitations. No paroxysmal nocturnal dyspnea. No orthopnea. Denies lightheadedness and dizziness. No syncopal episodes. Abdominal: no abdominal discomfort. No nausea, vomiting. no diarrhea. No constipation. No bloody or tarry stools. no loss of appetite. Genitourinary: No dysuria, increased frequency, urgency. No urinary retention. Denies vaginal bleeding. Musculoskeletal: No myalgias. No muscle weakness, no gait dysfunction, no f requent falls. No back pain. No neck pain. Integumentary: No wounds, no lesions. No rash or pruritus. No unusual bruising. No change in hair or nails. Neurologic: No aphasia. No facial droop. No change in mentation. No head injury. No headache. No paralysis. No paresthesia. Psychiatric: Reports depression. Reports anxiety. No mood swings. Endocrine: No abnormal blood sugars. No weight change. No excessive sweating or thirst. Social history: Previous smoker of 4 packs per day for 20 years and quit approximate 20 years ago. Denies any marijuana versus drug use. No alcohol use. She is at home with her daughter. Utilizes a CPAP and nebulizer. Patient is . Family history: Father at 72 from coronary artery disease with history of diabetes, mother at the age of 72 from coronary artery disease with history of diabetes and breast cancer, sister with no major medical issues other than hypertension, one daughter who has hypertension. Physical examination General Appearance: Alert, cooperative, no distress, appears stated age. Neck HEENT: Supple, no lymphadenopathy, no thyroid enlargement, no carotid bruits. Lungs: Clear to auscultation without crackles or wheezes no rhonchi, no deformity. Chest Wall: Chest wall normal expansion with deep inspiration no tenderness and no deformity was found on exam, no costochondral pain or discomfort. Heart: Regular rate and rhythm, S1, S2 normal, no murmur, rub or gallop. Back: Symmetric, no curvature, ROM normal, no CVA tenderness. Abdomen: Soft, non-tender, no rebound or rigidity, no hepatosplenomegaly. Extremities: Extremities normal, atraumatic, no cyanosis or 1+ edema to the left lower extremity, trace right lower extremity edema and tenderness. Pulses: 2+ and symmetric. Skin: Skin color, texture, tugor normal, no rashes or lesions. Neurologic: Alert oriented x3 cranial nerves II through XII intact, no motor deficit, no abnormal balance or gait Assessment and plan 1. Severe chronic anemia of chronic disease. Status post blood transfusion of 1 unit packed RBC. Hematology and GI consult. Repeat hemoglobin tomorrow. 2. History of myelodysplastic syndrome. Oncology consult. Monitor CBC. 3. Lower extremity edema, with recent ultrasound negative for DVT. Continue Lasix 40 mg daily and 20 mg in the afternoon, Aldactone 25 mg daily, IV fluids discontinued 4. Chronic kidney disease stage III. Avoid neurotoxins. Monitor renal function daily. Continue lisinopril, Lasix and Aldactone 5. GERD and GI prophylaxis. Protonix 40 mg IV twice daily. 6. Diabetes mellitus type 2. Metformin 1000 mg twice daily on hold, continue NovoLog sliding scale. Continue Levemir 35 units at bedtime and 40 units at bedtime, both decreased to half dose while patient is nothing by mouth. 7. Hypertension. Continue amiodarone 200 mg twice daily, Lasix, lisinopril 5 mg at bedtime, metoprolol 50 mg twice daily. 8. Paroxysmal atrial fibrillation. Continue amiodarone 200 mg by mouth twice a day, metoprolol 50 mg twice daily 9. Hyperlipidemia. Atorvastatin 80 mg by mouth at bedtime 10. Hypothyroidism. Levothyroxine 75 MCG's by mouth daily 11. Fibromyalgia, stable. Gabapentin 600 mg by mouth every 5 hours, continue Ultram 50 mg by mouth daily 12. History of breast cancer status post bilateral mastectomy. 13. Generalized anxiety disorder recurrent depression. Continue Effexor 75 mg by mouth at bedtime, 150mg by mouth daily 14. Obstructive sleep apnea. Continue CPAP. 15. DVT prophylaxis. SCDs. CODE STATUS: No code Discharge plan Return home Impression and plan of care have been directed as dictated by the signing physician. Abril Riley nurse practitioner acting as scribe for signing physician. Past Medical History Past Medical History: Atrial Fibrillation, Blood Disorder, Cancer, Diabetes Mellitus, Hyperlipidemia, Hypertension, Renal Disease, Sleep Apnea/CPAP/BIPAP, Thyroid Disorder Additional Past Medical History / Comment(s): Heart disease, ocular neuritis, refractory anemia, breast cancer, myelodyspasia, reblozyl injection every 3 weeks for anemia, had blood transfusion today Last Myocardial Infarction Date:: 2018 History of Any Multi-Drug Resistant Organisms: None Reported Past Surgical History: Appendectomy, Breast Surgery, Cholecystectomy, Heart Catheterization With Stent Additional Past Surgical History / Comment(s): bilateral masectomy, heart cath follow up in 2000 port-a-cath 2020 Past Anesthesia/Blood Transfusion Reactions: No Reported Reaction Additional Past Anesthesia/Blood Transfusion Reaction / Comment(s): Pt has received blood without reaction. Date of Last Stent Placement:: 1997 Past Psychological History: Depression Smoking Status: Former smoker Past Alcohol Use History: None Reported Past Drug Use History: None Reported - Past Family History Father Family Medical History: Coronary Artery Disease (CAD), Hypertension, Myocardial Infarction ([place]) Additional Family Medical History / Comment(s): Father at age 72 from coronary artery disease with history of diabetes Mother Family Medical History: Coronary Artery Disease (CAD) Additional Family Medical History / Comment(s): Mother at age 72 with history of coronary artery disease and diabetes. Sister(s) Additional Family Medical History / Comment(s): Patient has 1 sister with no major medical problems. Patient does not have. His. Patient has 1 daughter with no major medical problems. No history of breast cancer. Medications and Allergies Home Medications Medication Instructions Recorded Confirmed Type Spironolactone [Aldactone] 25 mg PO DAILY 01/01/14 10/28/20 History Levothyroxine Sodium [Synthroid] 75 mcg PO DAILY 01/20/19 10/28/20 History Venlafaxine HCl [Effexor XR] 75 mg PO HS 01/20/19 10/28/20 History Venlafaxine HCl [Effexor XR] 150 mg PO DAILY 01/20/19 10/28/20 History lisinopriL [Zestril] 5 mg PO HS 01/20/19 10/28/20 History Amiodarone [Cordarone] 200 mg PO BID 05/03/19 10/28/20 History Cyanocobalamin [Vitamin B-12] 500 mcg PO DAILY 05/03/19 10/28/20 History Atorvastatin [Lipitor] 80 mg PO HS 07/26/20 10/28/20 History Ergocalciferol [Vitamin D2 (1250 1,250 mcg PO Q14D 07/26/20 10/28/20 History Mcg = [id number] Iu)] Gabapentin 600 mg PO QID 07/26/20 10/28/20 History metFORMIN HCL [Glucophage] 1,000 mg PO AC-BID 07/26/20 10/28/20 History Folic Acid 1 mg PO DAILY tab 10/12/20 10/28/20 Rx Insulin Detemir (Levemir) [Levemir] 35 unit SQ HS 10/23/20 10/28/20 History Insulin Detemir (Levemir) [Levemir] 40 unit SQ AC-BRKFST 10/23/20 10/28/20 History Levothyroxine Sodium [Synthroid] 200 mcg PO DAILY 10/23/20 10/28/20 History Docusate [Colace] 100 mg PO DAILY 10/28/20 10/28/20 History Furosemide [Lasix] 20 mg PO HS 10/28/20 10/28/20 History Furosemide [Lasix] 40 mg PO DAILY 10/28/20 10/28/20 History Allergies Allergy/AdvReac Type Severity Reaction Status Date / Time fluoxetine HCl [From Prozac] Allergy Intermediate Itching Verified 10/28/20 16:12 gluten Allergy Intermediate Nausea & Verified 10/28/20 16:12 Vomiting Sulfa (Sulfonamide Allergy Intermediate Itching Verified 10/28/20 16:12 Antibiotics) mercury (elemental) Allergy Rash/Hives Verified 10/28/20 16:12 Physical Exam Vitals: Vital Signs Temp Pulse Resp BP Pulse Ox 10/29/20 04:00 98.6 F 77 17 124/50 96 10/28/20 22:00 58 L 15 107/73 98 10/28/20 20:05 98.1 F 55 L 16 136/44 99 10/28/20 18:45 98 F 60 18 145/94 10/28/20 18:01 98 F 58 L 18 128/93 10/28/20 17:31 98 F 56 L 18 129/50 100 10/28/20 17:21 98 F 58 L 18 115/50 100 10/28/20 17:08 98.7 F 54 L 18 116/60 100 10/28/20 14:43 98.1 F 63 16 114/49 96 Intake and Output 10/28/20 10/29/20 10/29/20 22:59 06:59 14:59 Intake Total 310 Balance 310 Intake: Blood Product 310 Rc As-1 Unit 310 [id number] Results CBC & Chem 7: 10/29/20 09:12 10/28/20 15:49 Labs: Abnormal Lab Results - Last 24 Hours (Table) 10/28/20 10/28/20 10/28/20 Range/Units 14:50 15:40 15:49 RBC 1.86 L (3.80-5.40) m/uL Hgb 6.2 L* D (11.4-16.0) gm/dL Hct 18.0 L* (34.0-46.0) % RDW 24.8 H (11.5-15.5) % Plt Count 41 L (150-450) k/uL Sodium 135 L (137-145) mmol/L Potassium 5.3 H (3.5-5.1) mmol/L Chloride 109 H (98-107) mmol/L Carbon Dioxide 15 L (22-30) mmol/L BUN 46 H (7-17) mg/dL Creatinine 1.33 H (0.52-1.04) mg/dL Plasma Lactic Acid Jeffry (0.7-2.0) mmol/L Total Bilirubin 0.1 L (0.2-1.3) mg/dL Total Protein 5.5 L (6.3-8.2) g/dL Albumin 3.3 L (3.5-5.0) g/dL Stool Occult Blood (Negative) Crossmatch See Detail 10/28/20 10/28/20 10/28/20 Range/Units 15:49 15:49 19:57 RBC (3.80-5.40) m/uL Hgb (11.4-16.0) gm/dL Hct (34.0-46.0) % RDW (11.5-15.5) % Plt Count (150-450) k/uL Sodium (137-145) mmol/L Potassium (3.5-5.1) mmol/L Chloride (98-107) mmol/L Carbon Dioxide (22-30) mmol/L BUN (7-17) mg/dL Creatinine (0.52-1.04) mg/dL Plasma Lactic Acid Jeffry 5.5 H* 2.6 H* (0.7-2.0) mmol/L Total Bilirubin (0.2-1.3) mg/dL Total Protein (6.3-8.2) g/dL Albumin (3.5-5.0) g/dL Stool Occult Blood Positive H (Negative) Crossmatch
[2020-10-29] MEDS ORDERED: GABAPENTIN 300 MG CAP PO SCH (13:00)
[2020-10-29] MEDS: INSULIN ASPART (NovoLOG) 100 UNIT/ML VIAL SQ SCH ×3 (15:05→20:56)
[2020-10-29] MEDS: FUROSEMIDE 40 MG TAB PO SCH (15:10)
[2020-10-29] MEDS: FUROSEMIDE 20 MG TAB PO SCH (15:10)
[2020-10-29] MEDS: DOCUSATE 100 MG CAP PO SCH (15:10)
[2020-10-29] MEDS: AMIODARONE 200 MG TAB PO SCH ×2 (15:11→20:56)
--- NOTE | 2020-10-29 15:56 | P.CONS ---
History of Present Illness - Reason for Consult Consult date: 10/29/20 anemia Requesting physician: Devin Alaniz - Chief Complaint abnormal lab - History of Present Illness Ms. Pinto is a very pleasant female patient of Dr. Siddiqui with a history of right-sided breast cancer in 2008, treated with bilateral mastectomy, right axillary dissection and started on Arimidex. Patient did not follow-up for some time until 2011 when she ran out of Arimidex. She did have some trouble making it to her appointments but, ultimately she stayed on Arimidex until 2015-she was supposed to complete 10 years but could not afford. She did end up resuming in 2016. Was seen in 2017 for greater saphenous vein superficial thrombosis. Had SE r/t DOAC and was started on Coumadin. Lost to follow-up for a period of time, was seen at [facility] on 11/15 with a hemoglobin in the 6 range. GI workup was negative. She ended up having both anemia and thrombocytopenia 12/16. Lab workup was negative. Bone marrow biopsy and aspirate 12/19/19 revealed myelodysplasia with 25% of marrow cellularity. No increased blasts, cytogenetics negative. PNH testing was negative. Patient was started on Procrit. This was unsuccessful, patient continued to require transfusions every 1-2 weeks. She started Luspatercept on 05/31/20. She had 1 cycle, missed cycle 2 because of hospital admission. Dose has been adjusted accordingly. She is now on the highest dose level, if she does not have a response in the next 3 or 4 doses of the medication it will have to be discontinued due to lack of response. Patient is admitted for anemia, hemoglobin 5 in the office, 6.2 on admission to the hospital, hemoglobin 7 post transfusion. patient was also noted to have a significantly elevated lactic acid of 5.5 on admit. Platelets stable 41,000, white blood cell count is normal. Patient was not able to give me much information about why she came to the ER-she can't remember. She is denying pain, nausea, difficulty in breathing, she was noting activity intolerance, musculoskeletal weakness. She does not recall having a fever, cough, chest pain, diarrhea or dysuria. Review of Systems 10 point review of systems is negative, what information I could get from patient Past Medical History Past Medical History: Atrial Fibrillation, Blood Disorder, Cancer, Diabetes Mellitus, Hyperlipidemia, Hypertension, Renal Disease, Sleep Apnea/CPAP/BIPAP, Thyroid Disorder Additional Past Medical History / Comment(s): Heart disease, ocular neuritis, refractory anemia, breast cancer, myelodyspasia, reblozyl injection every 3 weeks for anemia, had blood transfusion today Last Myocardial Infarction Date:: 2018 History of Any Multi-Drug Resistant Organisms: None Reported Past Surgical History: Appendectomy, Breast Surgery, Cholecystectomy, Heart Catheterization With Stent Additional Past Surgical History / Comment(s): bilateral masectomy, heart cath follow up in 2000 port-a-cath 2020 Past Anesthesia/Blood Transfusion Reactions: No Reported Reaction Additional Past Anesthesia/Blood Transfusion Reaction / Comm: Pt has received blood without reaction. Date of Last Stent Placement:: 1997 Past Psychological History: Depression Smoking Status: Former smoker Past Alcohol Use History: None Reported Past Drug Use History: None Reported - Past Family History Father Family Medical History: Coronary Artery Disease (CAD), Hypertension, Myocardial Infarction ([place]) Additional Family Medical History / Comment(s): Father at age 72 from coronary artery disease with history of diabetes Mother Family Medical History: Coronary Artery Disease (CAD) Additional Family Medical History / Comment(s): Mother at age 72 with history of coronary artery disease and diabetes. Sister(s) Additional Family Medical History / Comment(s): Patient has 1 sister with no major medical problems. Patient does not have. His. Patient has 1 daughter with no major medical problems. No history of breast cancer. Medications and Allergies Home Medications Medication Instructions Recorded Confirmed Type Spironolactone [Aldactone] 25 mg PO DAILY 01/01/14 10/28/20 History Levothyroxine Sodium [Synthroid] 75 mcg PO DAILY 01/20/19 10/28/20 History Venlafaxine HCl [Effexor XR] 75 mg PO HS 01/20/19 10/28/20 History Venlafaxine HCl [Effexor XR] 150 mg PO DAILY 01/20/19 10/28/20 History lisinopriL [Zestril] 5 mg PO HS 01/20/19 10/28/20 History Amiodarone [Cordarone] 200 mg PO BID 05/03/19 10/28/20 History Cyanocobalamin [Vitamin B-12] 500 mcg PO DAILY 05/03/19 10/28/20 History Atorvastatin [Lipitor] 80 mg PO HS 07/26/20 10/28/20 History Ergocalciferol [Vitamin D2 (1250 1,250 mcg PO Q14D 07/26/20 10/28/20 History Mcg = 25587 Iu)] Gabapentin 600 mg PO QID 07/26/20 10/28/20 History metFORMIN HCL [Glucophage] 1,000 mg PO AC-BID 07/26/20 10/28/20 History Folic Acid 1 mg PO DAILY tab 10/12/20 10/28/20 Rx Insulin Detemir (Levemir) [Levemir] 35 unit SQ HS 10/23/20 10/28/20 History Insulin Detemir (Levemir) [Levemir] 40 unit SQ AC-BRKFST 10/23/20 10/28/20 History Levothyroxine Sodium [Synthroid] 200 mcg PO DAILY 10/23/20 10/28/20 History Docusate [Colace] 100 mg PO DAILY 10/28/20 10/28/20 History Furosemide [Lasix] 20 mg PO HS 10/28/20 10/28/20 History Furosemide [Lasix] 40 mg PO DAILY 10/28/20 10/28/20 History Allergies Allergy/AdvReac Type Severity Reaction Status Date / Time fluoxetine HCl [From Prozac] Allergy Intermediate Itching Verified 10/28/20 16:12 gluten Allergy Intermediate Nausea & Verified 10/28/20 16:12 Vomiting Sulfa (Sulfonamide Allergy Intermediate Itching Verified 10/28/20 16:12 Antibiotics) mercury (elemental) Allergy Rash/Hives Verified 10/28/20 16:12 Physical Exam Vitals: Vital Signs Temp Pulse Resp BP Pulse Ox 10/29/20 04:00 98.6 F 77 17 124/50 96 10/28/20 22:00 58 L 15 107/73 98 10/28/20 20:05 98.1 F 55 L 16 136/44 99 10/28/20 18:45 98 F 60 18 145/94 10/28/20 18:01 98 F 58 L 18 128/93 10/28/20 17:31 98 F 56 L 18 129/50 100 10/28/20 17:21 98 F 58 L 18 115/50 100 10/28/20 17:08 98.7 F 54 L 18 116/60 100 10/28/20 14:43 98.1 F 63 16 114/49 96 Intake and Output 10/28/20 10/29/20 10/29/20 22:59 06:59 14:59 Intake Total 310 Balance 310 Intake: Blood Product 310 Rc As-1 Unit 310 [id number] - Constitutional General appearance: cooperative, morbidly obese, no acute distress - EENT Eyes: anicteric sclerae, EOMI ENT: hearing grossly normal, normal oropharynx - Neck Neck: no lymphadenopathy - Respiratory Respiratory: bilateral: CTA - Cardiovascular Rhythm: regular Heart sounds: normal: S1, S2 Abnormal Heart Sounds: no systolic murmur, no diastolic murmur, no rub, no S3 Gallop, no S4 Gallop, no click, no other leg Peripheral Edema: bilateral: None ( ) - Gastrointestinal General gastrointestinal: no absent bowel sounds, no decreased bowel sounds, no distended, no hepatomegaly, no hyperactive bowel sounds, normal bowel sounds, no organomegaly, no rigid, no scaphoid, soft, no splenomegaly, no tenderness, no u mbilical hernia, no ventral hernia - Neurologic Neurologic: CNII-XII intact - Psychiatric Alert and oriented x 2, Mild confusion, good recall of past events, more recent events slight difficulty with recall Results CBC & Chem 7: 10/29/20 09:12 10/28/20 15:49 Labs: Abnormal Lab Results - Last 24 Hours (Table) 10/28/20 10/28/20 10/28/20 Range/Units 14:50 15:40 15:49 RBC 1.86 L (3.80-5.40) m/uL Hgb 6.2 L* D (11.4-16.0) gm/dL Hct 18.0 L* (34.0-46.0) % RDW 24.8 H (11.5-15.5) % Plt Count 41 L (150-450) k/uL Sodium 135 L (137-145) mmol/L Potassium 5.3 H (3.5-5.1) mmol/L Chloride 109 H (98-107) mmol/L Carbon Dioxide 15 L (22-30) mmol/L BUN 46 H (7-17) mg/dL Creatinine 1.33 H (0.52-1.04) mg/dL Plasma Lactic Acid Jeffry (0.7-2.0) mmol/L Total Bilirubin 0.1 L (0.2-1.3) mg/dL Total Protein 5.5 L (6.3-8.2) g/dL Albumin 3.3 L (3.5-5.0) g/dL Stool Occult Blood (Negative) Crossmatch See Detail 10/28/20 10/28/20 10/28/20 Range/Units 15:49 15:49 19:57 RBC (3.80-5.40) m/uL Hgb (11.4-16.0) gm/dL Hct (34.0-46.0) % RDW (11.5-15.5) % Plt Count (150-450) k/uL Sodium (137-145) mmol/L Potassium (3.5-5.1) mmol/L Chloride (98-107) mmol/L Carbon Dioxide (22-30) mmol/L BUN (7-17) mg/dL Creatinine (0.52-1.04) mg/dL Plasma Lactic Acid Jeffry 5.5 H* 2.6 H* (0.7-2.0) mmol/L Total Bilirubin (0.2-1.3) mg/dL Total Protein (6.3-8.2) g/dL Albumin (3.5-5.0) g/dL Stool Occult Blood Positive H (Negative) Crossmatch Assessment and Plan (1) Myelodysplasia (myelodysplastic syndrome) Narrative/Plan: Pt continues on current therapy. 1 more month of therapy to determine if any benefit is going to be achieved. Unfortunately, she is requiring more frequent transfusions and her Hgb is lower each time, which is more corporate representative of failure of treatment. Her plt count is also noted to be progressively decreasing. She has f/u with Dr. Siddiqui in the ofc in 6 days, she will get another 2 injections and then plan for meeting to determine plan of care if there is no evidence of meaningful response to treatment. Agree with transfusion. CBC in AM if pt is still inpt Lactic acid was high on admit-defer to Attending MD for plan Current Visit: Yes Status: Chronic Priority: Medium Code(s): D46.9 - MYELODYSPLASTIC SYNDROME, UNSPECIFIED SNOMED Code(s): 873473290
[2020-10-29 16:51] LABS: Glucose,Whole Blood 118 mg/dL (75-99)
[2020-10-29 20:29] LABS: Glucose,Whole Blood 151 mg/dL (75-99)
[2020-10-29] MEDS ORDERED: lisinopriL 5 MG TAB PO SCH (21:00)
[2020-10-29] MEDS ORDERED: INSULIN DETEMIR (LEVEMIR) 100 UNIT/ML SYR SQ SCH ×2 (21:00)
[2020-10-29] MEDS ORDERED: FUROSEMIDE 20 MG TAB PO SCH (21:00)
[2020-10-29] MEDS ORDERED: ATORVASTATIN 80 MG TAB PO SCH (21:00)
[2020-10-29] MEDS ORDERED: VENLAFAXINE HCL ER 75 MG CAP PO SCH (21:00)
[2020-10-30] MEDS: ACETAMINOPHEN TAB 325 MG TAB PO PRN (01:20)
[2020-10-30 06:03] LABS: Glucose,Whole Blood 115 mg/dL (75-99)
[2020-10-30] MEDS: INSULIN ASPART (NovoLOG) 100 UNIT/ML VIAL SQ SCH ×2 (06:07→13:01)
[2020-10-30] MEDS ORDERED: LEVOTHYROXINE 75 MCG TAB PO SCH (06:30)
[2020-10-30] MEDS: LEVOTHYROXINE 100 MCG TAB PO SCH (06:48)
[2020-10-30] MEDS: LEVOTHYROXINE 75 MCG TAB PO SCH (06:48)
[2020-10-30] MEDS ORDERED: INSULIN DETEMIR (LEVEMIR) 100 UNIT/ML SYR SQ SCH ×2 (07:00)
[2020-10-30 07:48] LABS: Anisocytosis Moderate; HCT 20.1 % (34.0-46.0); MCH 33.1 pg (25.0-35.0); MCV 97.5 fL (80.0-100.0); Macrocytosis Moderate; Mean Platelet Volume 8.9; Poikilocytosis Slight; RBC 2.06 m/uL (3.80-5.40); RDW 22.4 % (11.5-15.5); WBC 2.8 k/uL (3.8-10.6)
[2020-10-30 08:14] LABS: Platelet Count 29 k/uL (150-450)
[2020-10-30 08:16] LABS: HGB 6.8 gm/dL (11.4-16.0)
[2020-10-30] MEDS ORDERED: VENLAFAXINE HCL ER 150 MG CAP PO SCH (09:00)
[2020-10-30] MEDS ORDERED: NON FORMULARY DRUG (Levothyroxine Sodium [Synthroid] 200 MCG Tablet) PO SCH (09:00)
[2020-10-30] MEDS ORDERED: FOLIC ACID 1 MG TAB PO SCH (09:00)
[2020-10-30] MEDS ORDERED: CYANOCOBALAMIN 500 MCG TAB PO SCH (09:00)
[2020-10-30] MEDS: PANTOPRAZOLE 40 MG/10 ML VIAL IVP SCH (09:00)
[2020-10-30] MEDS ORDERED: SPIRONOLACTONE 25 MG TAB PO SCH (09:00)
[2020-10-30] MEDS: AMIODARONE 200 MG TAB PO SCH (09:17)
[2020-10-30] MEDS: DOCUSATE 100 MG CAP PO SCH (09:17)
[2020-10-30] MEDS: GABAPENTIN 300 MG CAP PO SCH ×2 (09:17→13:01)
[2020-10-30] MEDS: FUROSEMIDE 40 MG TAB PO SCH (09:17)
[2020-10-30 10:47] VITALS: RESP 16
[2020-10-30 11:57] LABS: Glucose,Whole Blood 161 mg/dL (75-99)
[2020-10-30] MEDS ORDERED: IOPAMIDOL CONTRAST (ORAL USE) VIAL PO PRN (12:40)
[2020-10-30] MEDS: FUROSEMIDE 20 MG TAB PO SCH (13:01)
--- NOTE | 2020-10-30 13:31 | P.PN ---
Subjective Progress Note Date: 10/30/20 History of present illness This is a 75-year-old patient of Dr. Palacios with past medical history of right- sided breast cancer status post bilateral mastectomy in 2008, hypertension, hy perlipidemia, paroxysmal atrial fibrillation, diabetes mellitus type 2, fibromyalgia, generalized anxiety disorder and recurrent depression, obstructive sleep apnea with CPAP, gastroesophageal reflux disease, chronic kidney disease stage III, myelodysplastic syndrome with pancytopenia, chronic anemia requiring blood transfusions every 1-2 weeks. She had a recent hospitalization October 10 through October 12 at which time she was treated for severe anemia status post 1 unit of packed RBCs with hemoglobin at the time of discharge is 7.2. He was again admitted October 23 through October 25 and received 5.4. Patient denies having any bloody stools, no tarry stools. No vaginal bleeding. No unusual bleeding from other source. She denies having abdominal pain. She states she normally has firm stools but is taking stool softeners. Patient's daughter was contacted which patient had approved. She also agrees the patient has had no source of bleeding and was seen by oncology with recommendations, and the hospital for evaluation. Hemoglobin was 6.2 and patient was transfused 1 unit of packed RBCs. Repeat hemoglobin this morning is 7.0. Oncology and GI are on consult. 10/30: repeat hemoglobin this morning was 6.8 after 1 unit of packed red blood cells. We will order one more unit of pRBC and lactic acid came back as 2.6 and CAT scan of the abdomen and pelvis with contrast ordered to rule out colitis. oncology has seen the patient and cleared her for discharge after transfusion. Review Of Systems: Constitutional: No fever, no chills, no night sweats. No weight change. Reports weakness and fatigue no lethargy. No daytime sleepiness. EENT: No headache. No blurred vision or double vision, no loss of vision. No loss of Hearing, no ringing in the ears, no dizziness. No nasal drainage or congestion. No epistaxis. No sore throat. Lungs: No shortness of breath, cough, no sputum production. No wheezing. Shortness of breath with exertion. Cardiovascular: Denies chest pain, reports chronic lower extremity edema. No palpitations. No paroxysmal nocturnal dyspnea. No orthopnea. Denies lightheadedness and dizziness. No syncopal episodes. Abdominal: no abdominal discomfort. No nausea, vomiting. no diarrhea. No constipation. No bloody or tarry stools. no loss of appetite. Genitourinary: No dysuria, increased frequency, urgency. No urinary retention. Denies vaginal bleeding. Musculoskeletal: No myalgias. No muscle weakness, no gait dysfunction, no frequent falls. No back pain. No neck pain. Integumentary: No wounds, no lesions. No rash or pruritus. No unusual bruising. No change in hair or nails. Neurologic: No aphasia. No facial droop. No change in mentation. No head injury. No headache. No paralysis. No paresthesia. Psychiatric: Reports depression. Reports anxiety. No mood swings. Endocrine: No abnormal blood sugars. No weight change. No excessive sweating or thirst. Physical examination General Appearance: Alert, cooperative, no distress, appears stated age. Neck HEENT: Supple, no lymphadenopathy, no thyroid enlargement, no carotid bruits. Lungs: Clear to auscultation without crackles or wheezes no rhonchi, no deformity. Chest Wall: Chest wall normal expansion with deep inspiration no tenderness and no deformity was found on exam, no costochondral pain or discomfort. Heart: Regular rate and rhythm, S1, S2 normal, no murmur, rub or gallop. Back: Symmetric, no curvature, ROM normal, no CVA tenderness. Abdomen: Soft, non-tender, no rebound or rigidity, no hepatosplenomegaly. Extremities: Extremities normal, atraumatic, no cyanosis or 1+ edema to the left lower extremity, trace right lower extremity edema and tenderness. Pulses: 2+ and symmetric. Skin: Skin color, texture, tugor normal, no rashes or lesions. Neurologic: Alert oriented x3 cranial nerves II through XII intact, no motor deficit, no abnormal balance or gait Assessment and plan 1. Severe chronic anemia of chronic disease. Status post blood transfusion of 1 unit packed RBC. Hematology and GI consult. unit of packed RBCs will be ordered for today as well as CT of the abdomen and pelvis with contrast to rule out colitis due to elevated lactic acid. 2. History of myelodysplastic syndrome. Oncology consultappreciated. Patient has been cleared for discharge by oncology. 3. Lower extremity edema, with recent ultrasound negative for DVT. Continue Lasix 40 mg daily and 20 mg in the afternoon, Aldactone 25 mg daily, IV fluids discontinued 4. Chronic kidney disease stage III. Avoid neurotoxins. Monitor renal function daily. Continue lisinopril, Lasix and Aldactone 5. GERD and GI prophylaxis. Protonix 40 mg IV twice daily. 6. Diabetes mellitus type 2. Metformin 1000 mg twice daily on hold, continue NovoLog sliding scale. Continue Levemir 35 units at bedtime and 40 units at bedtime, both decreased to half dose while patient is nothing by mouth. 7. Hypertension. Continue amiodarone 200 mg twice daily, Lasix, lisinopril 5 mg at bedtime, metoprolol 50 mg twice daily. 8. Paroxysmal atrial fibrillation. Continue amiodarone 200 mg by mouth twice a day, metoprolol 50 mg twice daily 9. Hyperlipidemia. Atorvastatin 80 mg by mouth at bedtime 10. Hypothyroidism. Levothyroxine 75 MCG's by mouth daily 11. Fibromyalgia, stable. Gabapentin 600 mg by mouth every 5 hours, continue Ultram 50 mg by mouth daily 12. History of breast cancer status post bilateral mastectomy. 13. Generalized anxiety disorder recurrent depression. Continue Effexor 75 mg by mouth at bedtime, 150mg by mouth daily 14. Obstructive sleep apnea. Continue CPAP. 15. DVT prophylaxis. SCDs. CODE STATUS: No code Discharge plan Return home Impression and plan of care have been directed as dictated by the signing physician. Abril Riley nurse practitioner acting as scribe for signing physician. Objective - Vital Signs Vital signs: Vital Signs Temp 98.3 F 10/30/20 04:00 Pulse 83 10/30/20 04:00 Resp 17 10/30/20 04:00 BP 127/67 10/30/20 04:00 Pulse Ox 96 10/30/20 04:00 Intake & Output 10/29/20 10/30/20 10/30/20 18:59 06:59 18:59 Intake Total 180 240 240 Balance 180 240 240 Weight 117.934 kg 120.7 kg Intake: Oral 180 240 240 Other: Voiding Method Toilet Toilet # Voids 2 2 - Labs CBC & Chem 7: 10/30/20 07:26 10/28/20 15:49 Labs: Abnormal Lab Results - Last 24 Hours (Table) 10/28/20 10/29/20 10/29/20 Range/Units 15:40 16:50 20:28 WBC (3.8-10.6) k/uL RBC (3.80-5.40) m/uL Hgb (11.4-16.0) gm/dL Hct (34.0-46.0) % RDW (11.5-15.5) % Plt Count (150-450) k/uL POC Glucose (mg/dL) 118 H 151 H (75-99) mg/dL Crossmatch See Detail 10/30/20 10/30/20 Range/Units 06:02 07:26 WBC 2.8 L (3.8-10.6) k/uL RBC 2.06 L (3.80-5.40) m/uL Hgb 6.8 L* (11.4-16.0) gm/dL Hct 20.1 L (34.0-46.0) % RDW 22.4 H (11.5-15.5) % Plt Count 29 L (150-450) k/uL POC Glucose (mg/dL) 115 H (75-99) mg/dL Crossmatch
--- NOTE | 2020-10-30 13:43 | P.DS ---
Providers Date of admission: 10/28/20 16:58 Expected date of discharge: 10/30/20 Attending physician: Floresita Witt MD Consults: 10/28/20 15:52 Consult Physician Routine Consulting Provider: Saroj Siddiqui Consult Reason/Comments: anemia Do you want consulting provider notified?: Yes 10/28/20 16:29 Consult Physician Routine Consulting Provider: Mick Baker Consult Reason/Comments: GI bleed Do you want consulting provider notified?: Yes Primary care physician: Jaxon Palacios Hospital Course: History of present illness This is a 75-year-old patient of Dr. Palacios with past medical history of right- sided breast cancer status post bilateral mastectomy in 2008, hypertension, hyperlipidemia, paroxysmal atrial fibrillation, diabetes mellitus type 2, f ibromyalgia, generalized anxiety disorder and recurrent depression, obstructive sleep apnea with CPAP, gastroesophageal reflux disease, chronic kidney disease stage III, myelodysplastic syndrome with pancytopenia, chronic anemia requiring blood transfusions every 1-2 weeks. She had a recent hospitalization October 10 through October 12 at which time she was treated for severe anemia status post 1 unit of packed RBCs with hemoglobin at the time of discharge is 7.2. He was again admitted October 23 through October 25 and received 5.4. Patient denies having any bloody stools, no tarry stools. No vaginal bleeding. No unusual bleeding from other source. She denies having abdominal pain. She states she normally has firm stools but is taking stool softeners. Patient's daughter was contacted which patient had approved. She also agrees the patient has had no source of bleeding and was seen by oncology with recommendations, and the hospital for evaluation. Hemoglobin was 6.2 and patient was transfused 1 unit of packed RBCs. Repeat hemoglobin this morning is 7.0. Oncology and GI are on consult. 10/30: repeat hemoglobin this morning was 6.8 after 1 unit of packed red blood cells. We will order one more unit of pRBC and lactic acid came back as 2.6 and CAT scan of the abdomen and pelvis with contrast ordered to rule out colitis. Oncology has seen the patient and cleared her for discharge after transfusion. Oncology is planning for follow-up with Dr. Siddiqui in the office in 6 days she will receive 2 injections and then meets to determine further plan as patient does not seem to have evidence of meaningful response to treatment. CAT scan of the abdomen and pelvis with contrast was not completed as patient refused. Patient will be discharged home today in stable condition with follow-up with her primary care and oncology. Assessment and plan 1. Severe chronic anemia of chronic disease. Status post blood transfusion of 2 unit packed RBCs. 2. History of myelodysplastic syndrome. 3. Lower extremity edema, with recent ultrasound negative for DVT. 4. Chronic kidney disease stage III. 5. GERD. 6. Diabetes mellitus type 2. 7. Hypertension. 8. Paroxysmal atrial fibrillation. 9. Hyperlipidemia. 10. Hypothyroidism. 11. Fibromyalgia, stable. 12. History of breast cancer status post bilateral mastectomy. 13. Generalized anxiety disorder recurrent depression. 14. Obstructive sleep apnea. Discharge plan Home with [facility] Impression and plan of care have been directed as dictated by the signing phys vicente. Abril Riley nurse practitioner acting as scribe for signing physician. Patient Condition at Discharge: Stable Plan - Discharge Summary Discharge Rx Participant: No New Discharge Prescriptions: Continue Spironolactone [Aldactone] 25 mg PO DAILY Venlafaxine HCl [Effexor XR] 150 mg PO DAILY Venlafaxine HCl [Effexor XR] 75 mg PO HS lisinopriL [Zestril] 5 mg PO HS Levothyroxine Sodium [Synthroid] 75 mcg PO DAILY Cyanocobalamin [Vitamin B-12] 500 mcg PO DAILY Amiodarone [Cordarone] 200 mg PO BID Ergocalciferol [Vitamin D2 (1250 Mcg = 15432 Iu)] 1,250 mcg PO Q14D Levothyroxine Sodium [Synthroid] 200 mcg PO DAILY Insulin Detemir (Levemir) [Levemir] 40 unit SQ AC-BRKFST Insulin Detemir (Levemir) [Levemir] 35 unit SQ HS Docusate [Colace] 100 mg PO DAILY metFORMIN HCL [Glucophage] 1,000 mg PO AC-BID Atorvastatin [Lipitor] 80 mg PO HS Gabapentin 600 mg PO QID Folic Acid 1 mg PO DAILY tab Furosemide [Lasix] 20 mg PO HS Furosemide [Lasix] 40 mg PO DAILY Discharge Medication List Spironolactone [Aldactone] 25 mg PO DAILY 01/01/14 [History] Levothyroxine Sodium [Synthroid] 75 mcg PO DAILY 01/20/19 [History] Venlafaxine HCl [Effexor XR] 75 mg PO HS 01/20/19 [History] Venlafaxine HCl [Effexor XR] 150 mg PO DAILY 01/20/19 [History] lisinopriL [Zestril] 5 mg PO HS 01/20/19 [History] Amiodarone [Cordarone] 200 mg PO BID 05/03/19 [History] Cyanocobalamin [Vitamin B-12] 500 mcg PO DAILY 05/03/19 [History] Atorvastatin [Lipitor] 80 mg PO HS 07/26/20 [History] Ergocalciferol [Vitamin D2 (1250 Mcg = 02279 Iu)] 1,250 mcg PO Q14D 07/26/20 [History] Gabapentin 600 mg PO QID 07/26/20 [History] metFORMIN HCL [Glucophage] 1,000 mg PO AC-BID 07/26/20 [History] Folic Acid 1 mg PO DAILY tab 10/12/20 [Rx] Insulin Detemir (Levemir) [Levemir] 35 unit SQ HS 10/23/20 [History] Insulin Detemir (Levemir) [Levemir] 40 unit SQ AC-BRKFST 10/23/20 [History] Levothyroxine Sodium [Synthroid] 200 mcg PO DAILY 10/23/20 [History] Docusate [Colace] 100 mg PO DAILY 10/28/20 [History] Furosemide [Lasix] 20 mg PO HS 10/28/20 [History] Furosemide [Lasix] 40 mg PO DAILY 10/28/20 [History] Follow up Appointment(s)/Referral(s): Saroj Siddiqui MD [STAFF PHYSICIAN] - 11/04/20 9:45 am (this appointment is at [facility]) Jaxon Palacios MD [Primary Care Provider] - 11/06/20 11:00 am (will see DR Fish at the [place]) [facility] Visiting Nurse, [NON-STAFF] - Patient Instructions/Handouts: Iron Rich Diet (ED), Myelodysplastic Syndromes (ED) Discharge Disposition: HOME WITH HOME HEALTH SERVICES
[2020-10-30 14:55] VITALS: BP 151/67; PULSE 63; TEMP 98
--- NOTE | 2020-10-30 15:52 | P.PN ---
Subjective Progress Note Date: 10/30/20 Principal diagnosis: anemia and thrombocytopenia secondary to MDS in follow-up today patient remains in good spirits, she is needing one unit of blood for hemoglobin of 6.8. She denies any bleeding. She is not in any pain. Objective - Vital Signs Vital signs: Vital Signs Temp 98 F 10/30/20 14:10 Pulse 63 10/30/20 14:10 Resp 16 10/30/20 14:10 BP 151/67 10/30/20 14:10 Pulse Ox 94 L 10/30/20 11:57 Intake & Output 10/29/20 10/30/20 10/30/20 18:59 06:59 18:59 Intake Total 180 240 790 Balance 180 240 790 Weight 117.934 kg 120.7 kg Intake: Oral 180 240 480 Blood Product 310 Rc As-1 Unit 310 [id number] Other: Voiding Method Toilet Toilet Toilet # Voids 2 2 - Constitutional General appearance: Present: cooperative, no acute distress, obese - EENT Eyes: Present: anicteric sclerae, EOMI ENT: Present: hearing grossly normal - Respiratory Details: respirations are even and unlabored - Cardiovascular Rhythm: regular Heart sounds: normal: S1, S2 Abnormal Heart Sounds: Absent: systolic murmur, diastolic murmur, rub, S3 Gallop, S4 Gallop, click, other - Peripheral edema leg Peripheral Edema: bilateral: Trace - Gastrointestinal General gastrointestinal: Present: normal bowel sounds, soft. Absent: absent bowel sounds, decreased bowel sounds, distended, hepatomegaly, hyperactive bowel sounds, organomegaly, rigid, scaphoid, splenomegaly, tenderness, umbilical hernia, ventral hernia - Integumentary Integumentary: Present: pale - Neurologic Neurologic: Present: CNII-XII intact - Musculoskeletal Musculoskeletal: Present: generalized weakness, strength equal bilaterally - Psychiatric Psychiatric: Present: A&O x's 3, appropriate affect, intact judgment & insight - Labs CBC & Chem 7: 10/30/20 07:26 10/28/20 15:49 Labs: Abnormal Lab Results - Last 24 Hours (Table) 10/28/20 10/29/20 10/29/20 Range/Units 15:40 16:50 20:28 WBC (3.8-10.6) k/uL RBC (3.80-5.40) m/uL Hgb (11.4-16.0) gm/dL Hct (34.0-46.0) % RDW (11.5-15.5) % Plt Count (150-450) k/uL POC Glucose (mg/dL) 118 H 151 H (75-99) mg/dL Plasma Lactic Acid Jeffry (0.7-2.0) mmol/L Crossmatch See Detail 10/30/20 10/30/20 10/30/20 Range/Units 06:02 07:26 11:11 WBC 2.8 L (3.8-10.6) k/uL RBC 2.06 L (3.80-5.40) m/uL Hgb 6.8 L* (11.4-16.0) gm/dL Hct 20.1 L (34.0-46.0) % RDW 22.4 H (11.5-15.5) % Plt Count 29 L (150-450) k/uL POC Glucose (mg/dL) 115 H (75-99) mg/dL Plasma Lactic Acid Jeffry 2.6 H* (0.7-2.0) mmol/L Crossmatch 10/30/20 10/30/20 Range/Units 11:52 14:37 WBC (3.8-10.6) k/uL RBC (3.80-5.40) m/uL Hgb (11.4-16.0) gm/dL Hct (34.0-46.0) % RDW (11.5-15.5) % Plt Count (150-450) k/uL POC Glucose (mg/dL) 161 H (75-99) mg/dL Plasma Lactic Acid Jeffry 2.6 H* (0.7-2.0) mmol/L Crossmatch Assessment and Plan (1) Myelodysplasia (myelodysplastic syndrome) Narrative/Plan: Pt continues on current therapy. 1 more month of therapy to determine if any benefit is going to be achieved. Unfortunately, she is requiring more frequent transfusions and her Hgb is lower each time, which is more representative personal service of failure of treatment. Her plt count is also noted to be progressively decreasing. She has f/u with Dr. Siddiqui in the ofc in 6 days, she will get another 2 injections over the next several weeks and then plan for meeting to determine plan of care if there is no evidence of meaningful response to treatment. patient and I had a vikas conversation today about the likelihood that the treatment is unfortunately not effective and that there is likely progression of disease. She verbalized understanding. Plan is for home care and lab draws at home once a week and follow-up in the Hematology office once a week to try to keep patient out of the hospital for transfusions. Current Visit: Yes Status: Chronic Priority: Medium Code(s): D46.9 - MYELODYSPLASTIC SYNDROME, UNSPECIFIED SNOMED Code(s): 199624432
== END 2020-10-30 16:19 | disposition home health service (06) | DRG 812 ==
LOC: EC 14:28 → 3SCARD 16:58
PROVIDERS: ADMIT Internal Medicine; ATTEND Internal Medicine
PROC: 30233N1 Transfusion of Nonautologous Red Blood Cells into Peripheral Vein, Percutaneous Approach (ICD-10-PCS; principal; 2020-10-28)
DX: D46.9 Myelodysplastic syndrome, unspecified (principal); F33.9 Major depressive disorder, recurrent, unspecified; D46.4 Refractory anemia, unspecified; I48.0 Paroxysmal atrial fibrillation; E78.5 Hyperlipidemia, unspecified; N93.9 Abnormal uterine and vaginal bleeding, unspecified; Z85.43 Personal history of malignant neoplasm of ovary; Z82.49 Family history of ischemic heart disease and other diseases of the circulatory system; Z83.3 Family history of diabetes mellitus; N18.30 Chronic kidney disease, stage 3 unspecified; E11.22 Type 2 diabetes mellitus with diabetic chronic kidney disease; I12.9 Hypertensive chronic kidney disease with stage 1 through stage 4 chronic kidney disease, or unspecified chronic kidney disease; Z87.891 Personal history of nicotine dependence; Z79.4 Long term (current) use of insulin; E03.9 Hypothyroidism, unspecified; M79.7 Fibromyalgia; Z80.3 Family history of malignant neoplasm of breast; Z90.13 Acquired absence of bilateral breasts and nipples; K21.9 Gastro-esophageal reflux disease without esophagitis; Z79.890 Hormone replacement therapy; F41.1 Generalized anxiety disorder; G47.33 Obstructive sleep apnea (adult) (pediatric); R60.0 Localized edema; D69.59 Other secondary thrombocytopenia; D63.8 Anemia in other chronic diseases classified elsewhere; I25.2 Old myocardial infarction; Z79.899 Other long term (current) drug therapy; Z85.3 Personal history of malignant neoplasm of breast
CPT/HCPCS: 36415; 80053; 82272; 83605; 83735; 84484; 85025; 85027; 85610; 85730; 86850; 86900; 86901; 86920; 93005; 99285

== ENCOUNTER 2020-11-15 13:19 | Observation (INO) | payer MEDICARE ==
--- NOTE | 2020-11-15 13:40 | ED ---
General Adult HPI - General Chief complaint: Weakness Stated complaint: Animia Time Seen by Provider: 11/15/20 13:26 Source: patient, EMS, RN notes reviewed Mode of arrival: EMS Limitations: no limitations - History of Present Illness Initial comments: Patient is a pleasant 75-year-old female presenting to the emergency department with concerns regarding possible anemia. Patient does have history of myelodysplasia and previous blood transfusions. Patient states symptoms are similar to that. Patient feels fatigued and generally weak. No confusion. No isolated area of weakness. No speech problems. No dyspnea. No bleeding or black stools. - Related Data Home Medications Medication Instructions Recorded Confirmed Spironolactone [Aldactone] 25 mg PO DAILY 01/01/14 11/15/20 Levothyroxine Sodium [Synthroid] 75 mcg PO DAILY 01/20/19 11/15/20 Venlafaxine HCl [Effexor XR] 75 mg PO HS 01/20/19 11/15/20 Venlafaxine HCl [Effexor XR] 150 mg PO DAILY 01/20/19 11/15/20 lisinopriL [Zestril] 5 mg PO HS 01/20/19 11/15/20 Amiodarone [Cordarone] 200 mg PO BID 05/03/19 11/15/20 Cyanocobalamin [Vitamin B-12] 500 mcg PO DAILY 05/03/19 11/15/20 Atorvastatin [Lipitor] 80 mg PO HS 07/26/20 11/15/20 Ergocalciferol [Vitamin D2 (1250 1,250 mcg PO Q14D 07/26/20 11/15/20 Mcg = 57125 Iu)] Gabapentin 600 mg PO QID 07/26/20 11/15/20 metFORMIN HCL [Glucophage] 1,000 mg PO AC-BID 07/26/20 11/15/20 Insulin Detemir (Levemir) [Levemir] 35 unit SQ HS 10/23/20 11/15/20 Insulin Detemir (Levemir) [Levemir] 40 unit SQ AC-[id number] 10/23/20 11/15/20 Levothyroxine Sodium [Synthroid] 200 mcg PO DAILY 10/23/20 11/15/20 Docusate [Colace] 100 mg PO DAILY 10/28/20 11/15/20 Furosemide [Lasix] 20 mg PO HS 10/28/20 11/15/20 Furosemide [Lasix] 40 mg PO DAILY 10/28/20 11/15/20 Previous Rx's Medication Instructions Recorded Folic Acid 1 mg PO DAILY tab 10/12/20 Allergies Allergy/AdvReac Type Severity Reaction Status Date / Time fluoxetine HCl [From Prozac] Allergy Intermediate Itching Verified 11/15/20 13:53 Sulfa (Sulfonamide Allergy Intermediate Itching Verified 11/15/20 13:53 Antibiotics) mercury (elemental) Allergy Rash/Hives Verified 11/15/20 13:53 gluten AdvReac Intermediate Nausea & Verified 11/15/20 13:53 Vomiting Review of Systems ROS Statement: Those systems with pertinent positive or pertinent negative responses have been documented in the HPI. ROS Other: All systems not noted in ROS Statement are negative. Constitutional: Denies: fever Eyes: Denies: eye pain ENT: Denies: ear pain Respiratory: Denies: cough Cardiovascular: Denies: chest pain Endocrine: Reports: fatigue Gastrointestinal: Denies: abdominal pain Genitourinary: Denies: dysuria Musculoskeletal: Denies: back pain Skin: Denies: rash Neurological: Denies: headache Past Medical History Past Medical History: Atrial Fibrillation, Blood Disorder, Cancer, Diabetes Mellitus, Hyperlipidemia, Hypertension, Renal Disease, Sleep Apnea/CPAP/BIPAP, T hyroid Disorder Additional Past Medical History / Comment(s): Heart disease, ocular neuritis, refractory anemia, breast cancer, myelodyspasia, reblozyl injection every 3 weeks for anemia, had blood transfusion today Last Myocardial Infarction Date:: 2018 History of Any Multi-Drug Resistant Organisms: None Reported Past Surgical History: Appendectomy, Breast Surgery, Cholecystectomy, Heart Catheterization With Stent Additional Past Surgical History / Comment(s): bilateral masectomy, heart cath follow up in 2000 port-a-cath 2020 Past Anesthesia/Blood Transfusion Reactions: No Reported Reaction Additional Past Anesthesia/Blood Transfusion Reaction / Comment(s): Pt has received blood without reaction. Date of Last Stent Placement:: 1997 Past Psychological History: Depression Smoking Status: Former smoker Past Alcohol Use History: None Reported Past Drug Use History: None Reported - Past Family History Father Family Medical History: Coronary Artery Disease (CAD), Hypertension, Myocardial Infarction ([place]) Additional Family Medical History / Comment(s): Father at age 72 from coronary artery disease with history of diabetes Mother Family Medical History: Coronary Artery Disease (CAD) Additional Family Medical History / Comment(s): Mother at age 72 with history of coronary artery disease and diabetes. Sister(s) Additional Family Medical History / Comment(s): Patient has 1 sister with no major medical problems. Patient does not have. His. Patient has 1 daughter with no major medical problems. No history of breast cancer. General Exam Limitations: no limitations General appearance: alert, in no apparent distress Head exam: Present: normocephalic Eye exam: Present: normal appearance, PERRL Neck exam: Present: normal inspection Respiratory exam: Present: normal lung sounds bilaterally Cardiovascular Exam: Present: regular rate, normal rhythm, systolic murmur (Patient states chronic) GI/Abdominal exam: Present: soft. Absent: tenderness Extremities exam: Present: normal inspection Neurological exam: Present: alert Psychiatric exam: Present: normal affect, normal mood Skin exam: Present: normal color Course Vital Signs 11/15/20 11/15/20 11/15/20 13:30 17:02 19:20 Temperature 98.7 F Pulse Rate 72 76 81 Respiratory 18 18 18 Rate Blood Pressure 125/56 115/57 113/59 O2 Sat by Pulse 98 96 98 Oximetry Medical Decision Making - Medical Decision Making Patient reevaluated and updated. Case discussed with Dr. Corbett who questions the patient needs to be admitted. We did try to get up and have patient ambulate unsuccessfully. Case was discussed with patient's daughter who states patient did have difficulty getting around early this afternoon. She would like patient to stay tonight. She does not feel patient needs long-term care. Hemoglobin will be rechecked. - Lab Data Result diagrams: 11/15/20 15:01 11/15/20 14:53 Lab Results 11/15/20 11/15/20 11/15/20 Range/Units 14:53 14:53 15:01 WBC 4.2 (3.8-10.6) k/uL RBC 2.68 L (3.80-5.40) m/uL Hgb 9.2 L (11.4-16.0) gm/dL Hct 27.1 L (34.0-46.0) % MCV 101.1 H (80.0-100.0) fL MCH 34.3 (25.0-35.0) pg MCHC 33.9 (31.0-37.0) g/dL RDW 24.6 H (11.5-15.5) % Plt Count 39 L (150-450) k/uL MPV 9.3 Neutrophils % 64 % Lymphocytes % 22 % Monocytes % 7 % Eosinophils % 2 % Basophils % 0 % Neutrophils # 2.7 (1.3-7.7) k/uL Lymphocytes # 0.9 L (1.0-4.8) k/uL Monocytes # 0.3 (0-1.0) k/uL Eosinophils # 0.1 (0-0.7) k/uL Basophils # 0.0 (0-0.2) k/uL Hypochromasia Slight Poikilocytosis Moderate Anisocytosis Marked Macrocytosis Marked A PT 9.5 (9.0-12.0) sec INR 0.9 (<1.2) APTT 15.3 L (22.0-30.0) sec Sodium 138 (137-145) mmol/L Potassium 5.2 H (3.5-5.1) mmol/L Chloride 104 (98-107) mmol/L Carbon Dioxide 24 (22-30) mmol/L Anion Gap 10 mmol/L BUN 41 H (7-17) mg/dL Creatinine 1.48 H (0.52-1.04) mg/dL Est GFR (CKD-EPI)AfAm 39 (>60 ml/min/1.73 sqM) Est GFR (CKD-EPI)NonAf 34 (>60 ml/min/1.73 sqM) Glucose 75 (74-99) mg/dL Calcium 9.2 (8.4-10.2) mg/dL Total Bilirubin 0.4 (0.2-1.3) mg/dL AST 47 H (14-36) U/L ALT 76 H (4-34) U/L Alkaline Phosphatase 118 (38-126) U/L Total Protein 6.5 (6.3-8.2) g/dL Albumin 3.9 (3.5-5.0) g/dL Urine Color Urine Appearance (Clear) Urine pH (5.0-8.0) Ur Specific [place] (1.001-1.035) Urine Protein (Negative) Urine Glucose (UA) (Negative) Urine Ketones (Negative) Urine Blood (Negative) Urine Nitrite (Negative) Urine Bilirubin (Negative) Urine Urobilinogen (<2.0) mg/dL Ur Leukocyte Esterase (Negative) Blood Type Blood Type Recheck Bld Type Recheck Status Antibody Screen Spec Expiration Date 11/15/20 11/15/20 Range/Units 15:35 19:21 WBC (3.8-10.6) k/uL RBC (3.80-5.40) m/uL Hgb (11.4-16.0) gm/dL Hct (34.0-46.0) % MCV (80.0-100.0) fL MCH (25.0-35.0) pg MCHC (31.0-37.0) g/dL RDW (11.5-15.5) % Plt Count (150-450) k/uL MPV Neutrophils % % Lymphocytes % % Monocytes % % Eosinophils % % Basophils % % Neutrophils # (1.3-7.7) k/uL Lymphocytes # (1.0-4.8) k/uL Monocytes # (0-1.0) k/uL Eosinophils # (0-0.7) k/uL Basophils # (0-0.2) k/uL Hypochromasia Poikilocytosis Anisocytosis Macrocytosis PT (9.0-12.0) sec INR (<1.2) APTT (22.0-30.0) sec Sodium (137-145) mmol/L Potassium (3.5-5.1) mmol/L Chloride (98-107) mmol/L Carbon Dioxide (22-30) mmol/L Anion Gap mmol/L BUN (7-17) mg/dL Creatinine (0.52-1.04) mg/dL Est GFR (CKD-EPI)AfAm (>60 ml/min/1.73 sqM) Est GFR (CKD-EPI)NonAf (>60 ml/min/1.73 sqM) Glucose (74-99) mg/dL Calcium (8.4-10.2) mg/dL Total Bilirubin (0.2-1.3) mg/dL AST (14-36) U/L ALT (4-34) U/L Alkaline Phosphatase (38-126) U/L Total Protein (6.3-8.2) g/dL Albumin (3.5-5.0) g/dL Urine Color Light Yellow Urine Appearance Clear (Clear) Urine pH 5.5 (5.0-8.0) Ur Specific [place] 1.005 (1.001-1.035) Urine Protein Negative (Negative) Urine Glucose (UA) Negative (Negative) Urine Ketones Negative (Negative) Urine Blood Negative (Negative) Urine Nitrite Negative (Negative) Urine Bilirubin Negative (Negative) Urine Urobilinogen <2.0 (<2.0) mg/dL Ur Leukocyte Esterase Negative (Negative) Blood Type A Positive Blood Type Recheck A Pos Bld Type Recheck Status No Antibody Screen NEGATIVE Spec Expiration Date 11/18/20202334 - Radiology Data Radiology results: image reviewed (Chest x-ray shows no acute process) Disposition Clinical Impression: Anemia, Myelodysplasia (myelodysplastic syndrome), Ataxia Disposition: ADMITTED IP TO THIS HOSP Is patient prescribed a controlled substance at d/c from ED?: No Referrals: Nonstaff,Physician [REFERRING] - 1-2 days Decision Time: 20:57
[2020-11-15 15:07] LABS: Anisocytosis Marked; Basophils % (A) 0 %; Eosinophils # (A) 0.1 k/uL (0-0.7); Eosinophils % (A) 2 %; HCT 27.1 % (34.0-46.0); HGB 9.2 gm/dL (11.4-16.0); Hypochromasia Slight; Lymphocytes # (A) 0.9 k/uL (1.0-4.8); Lymphocytes % (A) 22 %; MCH 34.3 pg (25.0-35.0); MCHC 33.9 g/dL (31.0-37.0); MCV 101.1 fL (80.0-100.0); Macrocytosis Marked; Mean Platelet Volume 9.3; Monocytes # (A) 0.3 k/uL (0-1.0); Monocytes % (A) 7 %; Neutrophils # (A) 2.7 k/uL (1.3-7.7); Neutrophils % (A) 64 %; Poikilocytosis Moderate; RBC 2.68 m/uL (3.80-5.40); RDW 24.6 % (11.5-15.5); WBC 4.2 k/uL (3.8-10.6)
[2020-11-15 15:09] LABS: Platelet Count 39 k/uL (150-450)
[2020-11-15 15:26] LABS: INR 0.9 (<1.2); Prothrombin Time 9.5 sec (9.0-12.0)
[2020-11-15 15:51] LABS: Partial Thromboplastin Time 15.3 sec (22.0-30.0)
--- NOTE | 2020-11-15 16:18 | XR ---
EXAMINATION TYPE: XR chest 2V DATE OF EXAM: 11/15/2020 COMPARISON: 10/23/2020 TECHNIQUE: PA and lateral views submitted. HISTORY: Weakness FINDINGS: The lungs are clear and there is no pneumothorax, pleural effusion, or focal pneumonia. Heart size prominent. No overt failure. Suggestion of surgical clips in the axilla. Arthropathy of the shoulders and degenerative changes of the spine. Catheter density overlying the soft tissues of the right neck . IMPRESSION: 1. No acute process.
[2020-11-15 16:35] LABS: Albumin 3.9 g/dL (3.5-5.0); Calcium 9.2 mg/dL (8.4-10.2); Potassium 5.2 mmol/L (3.5-5.1); Total Bilirubin 0.4 mg/dL (0.2-1.3); Total Protein 6.5 g/dL (6.3-8.2)
[2020-11-15 19:30] LABS: Appearance,Urine Clear (Clear); Bilirubin,Urine Negative (Negative); Blood,Urine Negative (Negative); Color,Urine Light Yellow; Glucose,Urine (UA) Negative (Negative); Ketones,Urine Negative (Negative); Leukocyte Esterase,Urine Negative (Negative); Nitrite,Urine Negative (Negative); PH, Urine 5.5 (5.0-8.0); Protein,Urine Negative (Negative); Specific Gravity,Urine 1.005 (1.001-1.035); Urobilinogen,Urine <2.0 mg/dL (<2.0)
[2020-11-15] MEDS ORDERED: NALOXONE 0.4 MG/ML 1 ML VIAL IV PRN (20:57)
--- NOTE | 2020-11-15 21:09 | CT ---
EXAMINATION TYPE: CT brain wo con DATE OF EXAM: 11/15/2020 COMPARISON: 12/10/2019 HISTORY: Weakness CT DLP: 1166.4 mGycm Automated exposure control for dose reduction was used. There is diffuse cerebral atrophy. There is no mass effect nor midline shift. There is no sign of int racranial hemorrhage. There is enlargement of the sylvian fissures. The calvarium is intact. Skull ba se is intact. IMPRESSION: Cerebral atrophy. No acute intracranial abnormality. No change.
[2020-11-16] MEDS: GABAPENTIN 300 MG CAP PO SCH ×3 (02:42→12:38)
[2020-11-16 05:57] VITALS: RESP 18
[2020-11-16 06:38] LABS: Anisocytosis Marked; Basophils % (A) 1 %; Eosinophils # (A) 0.1 k/uL (0-0.7); Eosinophils % (A) 3 %; HCT 21.2 % (34.0-46.0); Hypochromasia Slight; Lymphocytes # (A) 1.2 k/uL (1.0-4.8); Lymphocytes % (A) 32 %; MCH 35.2 pg (25.0-35.0); MCHC 34.7 g/dL (31.0-37.0); MCV 101.6 fL (80.0-100.0); Macrocytosis Marked; Mean Platelet Volume 9.5; Monocytes # (A) 0.3 k/uL (0-1.0); Monocytes % (A) 8 %; Neutrophils % (A) 53 %; Poikilocytosis Slight; RBC 2.09 m/uL (3.80-5.40); WBC 3.8 k/uL (3.8-10.6)
[2020-11-16 06:41] LABS: HGB 7.4 gm/dL (11.4-16.0); RDW 25.1 % (11.5-15.5)
[2020-11-16 06:42] LABS: Platelet Count 41 k/uL (150-450)
[2020-11-16] MEDS ORDERED: PANTOPRAZOLE 40 MG/10 ML VIAL IV SCH (09:00)
[2020-11-16] MEDS ORDERED: AMIODARONE 200 MG TAB PO SCH (11:30)
[2020-11-16] MEDS ORDERED: FOLIC ACID 1 MG TAB PO SCH (11:30)
[2020-11-16] MEDS ORDERED: CYANOCOBALAMIN 500 MCG TAB PO SCH (11:30)
[2020-11-16] MEDS ORDERED: FUROSEMIDE 40 MG TAB PO SCH (11:30)
[2020-11-16] MEDS ORDERED: LEVOTHYROXINE 75 MCG TAB PO SCH (11:30)
[2020-11-16] MEDS ORDERED: metFORMIN 500 MG TAB PO SCH (11:45)
[2020-11-16] MEDS ORDERED: VENLAFAXINE HCL ER 150 MG CAP PO SCH (11:45)
[2020-11-16] MEDS ORDERED: LEVOTHYROXINE 100 MCG TAB PO SCH (11:45)
[2020-11-16] MEDS ORDERED: SPIRONOLACTONE 25 MG TAB PO SCH (11:45)
[2020-11-16] MEDS ORDERED: ACETAMINOPHEN TAB 325 MG TAB PO PRN (12:15)
[2020-11-16 13:04] LABS: % Iron Saturation 68.17 (12.00-45.00)
[2020-11-16 13:38] VITALS: BP 143/69; PULSE 85; TEMP 97.4
--- NOTE | 2020-11-16 15:06 | P.HPIM ---
History of Present Illness H&P Date: 11/16/20 (This note will serve both as an H&P and discharge summary) Chief Complaint: Generalized weakness History of present illness This is a 75-year-old patient of Dr. Palacios with past medical history of right- sided breast cancer status post bilateral mastectomy in 2008, hypertension, hyperlipidemia, paroxysmal atrial fibrillation, diabetes mellitus type 2, fibromyalgia, generalized anxiety disorder and recurrent depression, obstructive sleep apnea with CPAP, gastroesophageal reflux disease, chronic kidney disease stage III, myelodysplastic syndrome with pancytopenia, chronic anemia requiring blood transfusions every 1-2 weeks. She had a recent hospitalization October 10 through October 12 at which time she was treated for severe anemia status post 1 unit of packed RBCs with hemoglobin at the time of discharge is 7.2. He was again admitted October 23 through October 25 and received 5.4. Last admission on 10/29/2020 to 10/30/2020 for similar reason. Patient comes in this time with increased weakness and shortness of breath. She was unable to ambulate in the ER and therefore decided to admit the patient. On evaluation today patient denies any chest pain or shortness of breath. She does complain of tiredness. She feels better than yesterday. She is able to walk in the room with the use of the walker. She has slight instability of her gait but denies any dizziness or lightheadedness. Patient denies having any bloody stools, no tarry stools. No vaginal bleeding. No unusual bleeding from other source. She denies having abdominal pain. She states she normally has firm stools but is taking stool softeners. Globulin on admission was 9.2 with MCV 101.1 , potassium 5.2, chloride 104 BUN 41 and creatinine 1.48 iron to 12 iron saturation 68 AST 47 ALT 76 urinalysis is negative for infection. Chest x-ray was negative for any acute abnormality. Patient's hemoglobin this morning has dropped to 7.4 patient at baseline hemoglobin stays between 6-7. Detailed discussion was made with oncology who is comfortable with discharging patient since patient isn't at her baseline. Patient is not interested in any rehab and would like to go home Review Of Systems: Constitutional: No fever, no chills, no night sweats. No weight change. Reports weakness and fatigue . No daytime sleepiness. EENT: No headache. No blurred vision or double vision, no loss of vision. No loss of Hearing, no ringing in the ears, no dizziness. No nasal drainage or congestion. No epistaxis. No sore throat. Lungs: No shortness of breath, cough, no sputum production. No wheezing. Shortness of breath with exertion. Cardiovascular: Denies chest pain, reports chronic lower extremity edema. No palpitations. No paroxysmal nocturnal dyspnea. No orthopnea. Denies lightheadedness and dizziness. No syncopal episodes. Abdominal: no abdominal discomfort. No nausea, vomiting. no diarrhea. No constipation. No bloody or tarry stools. no loss of appetite. Genitourinary: No dysuria, increased frequency, urgency. No urinary retention. Denies vaginal bleeding. Musculoskeletal: No myalgias. No muscle weakness, no gait dysfunction, no frequent falls. No back pain. No neck pain. Integumentary: No wounds, no lesions. No rash or pruritus. No unusual bruising. No change in hair or nails. Neurologic: No aphasia. No facial droop. No change in mentation. No head injury. No headache. No paralysis. No paresthesia. Positive for ataxia Psychiatric: Reports depression. Reports anxiety. No mood swings. Endocrine: No abnormal blood sugars. No weight change. No excessive sweating or thirst. Social history: Previous smoker of 4 packs per day for 20 years and quit approximate 20 years ago. Denies any marijuana versus drug use. No alcohol use. She is at home with her daughter. Utilizes a CPAP and nebulizer. Patient is . Family history: Father at 72 from coronary artery disease with history of diabetes, mother at the age of 72 from coronary artery disease with history of diabetes and breast cancer, sister with no major medical issues other than hypertension, one daughter who has hypertension. Physical examination General Appearance: Alert, cooperative, no distress, appears stated age. Neck HEENT: Supple, no lymphadenopathy, no thyroid enlargement, no carotid bruits. Lungs: Clear to auscultation without crackles or wheezes no rhonchi, no deformity. Chest Wall: Chest wall normal expansion with deep inspiration no tenderness and no deformity was found on exam, no costochondral pain or discomfort. Heart: Regular rate and rhythm, S1, S2 normal, no murmur, rub or gallop. Back: Symmetric, no curvature, ROM normal, no CVA tenderness. Abdomen: Soft, non-tender, no rebound or rigidity, no hepatosplenomegaly. Extremities: Extremities normal, atraumatic, no cyanosis or 1+ edema to the left lower extremity, trace right lower extremity edema and tenderness. Pulses: 2+ and symmetric. Skin: Skin color, texture, tugor normal, no rashes or lesions. Neurologic: Alert oriented x3 cranial nerves II through XII intact, no motor deficit, no abnormal balance or gait Assessment and plan 1. Severe chronic anemia of chronic disease secondary to myelodysplastic syndrome. Baseline hemoglobin 6-7.4. Patient is currently at baseline no transfusions as needed Iron stores are repleted. 2. History of myelodysplastic syndrome. Follow-up with oncology as outpatient 3. Lower extremity edema, with recent ultrasound negative for DVT. Continue Lasix 40 mg daily and 20 mg in the afternoon, Aldactone 25 mg daily, IV fluids discontinued 4. Chronic kidney disease stage III. Avoid neurotoxins. Monitor renal function daily. Continue lisinopril, Lasix and Aldactone 5. GERD and GI prophylaxis. Protonix 40 mg IV daily. 6. Diabetes mellitus type 2. Metformin 1000 mg twice daily on hold, continue NovoLog sliding scale. Continue Levemir 35 units at bedtime and 40 units at bedtime 7. Hypertension. Continue amiodarone 200 mg twice daily, Lasix, lisinopril 5 mg at bedtime, metoprolol 50 mg twice daily. 8. Paroxysmal atrial fibrillation. Continue amiodarone 200 mg by mouth twice a day, metoprolol 50 mg twice daily 9. Hyperlipidemia. Atorvastatin 80 mg by mouth at bedtime 10. Hypothyroidism. Levothyroxine 75 MCG's by mouth daily 11. Fibromyalgia, stable. Gabapentin 600 mg by mouth every 5 hours, continue Ultram 50 mg by mouth daily 12. History of breast cancer status post bilateral mastectomy. 13. Generalized anxiety disorder recurrent depression. Continue Effexor 75 mg by mouth at bedtime, 150mg by mouth daily 14. Obstructive sleep apnea. Continue CPAP. 15. DVT prophylaxis. SCDs. CODE STATUS: No code Past Medical History Past Medical History: Atrial Fibrillation, Blood Disorder, Cancer, Diabetes Mellitus, Hyperlipidemia, Hypertension, Renal Disease, Sleep Apnea/CPAP/BIPAP, Thyroid Disorder Additional Past Medical History / Comment(s): Heart disease, ocular neuritis, refractory anemia, breast cancer, myelodyspasia, reblozyl injection every 3 weeks for anemia, Last Myocardial Infarction Date:: 2018 History of Any Multi-Drug Resistant Organisms: None Reported Past Surgical History: Appendectomy, Breast Surgery, Cholecystectomy, Heart Catheterization With Stent Additional Past Surgical History / Comment(s): bilateral masectomy, heart cath follow up in 2000 port-a-cath 2020 Past Anesthesia/Blood Transfusion Reactions: No Reported Reaction Additional Past Anesthesia/Blood Transfusion Reaction / Comment(s): Pt has received blood without reaction. Date of Last Stent Placement:: 1997 Past Psychological History: Depression Additional Psychological History / Comment(s): Pt has her daughter and son in law living with her. She ambulates with a rollator. Her daughter is her caregiver. She no longer drives, her daughter takes her to [employer]. She has a cpap, glucometer. Smoking Status: Former smoker Past Alcohol Use History: None Reported Additional Past Alcohol Use History / Comment(s): Patient was a smoker of 3 packs per day for 20 years and quit approximately 20 years ago. She denies any marijuana, illicit drug use. No alcohol use. She was at home with her daughter. She does have a CPAP and nebulizer. Patient is . Past Drug Use History: None Reported - Past Family History Father Family Medical History: Coronary Artery Disease (CAD), Hypertension, Myocardial Infarction ([place]) Additional Family Medical History / Comment(s): Father at age 72 from coronary artery disease with history of diabetes Mother Family Medical History: Coronary Artery Disease (CAD) Additional Family Medical History / Comment(s): Mother at age 72 with history of coronary artery disease and diabetes. Sister(s) Additional Family Medical History / Comment(s): Patient has 1 sister with no major medical problems. Patient does not have. His. Patient has 1 daughter with no major medical problems. No history of breast cancer. Medications and Allergies Home Medications Medication Instructions Recorded Confirmed Type Spironolactone [Aldactone] 25 mg PO DAILY 01/01/14 11/15/20 History Levothyroxine Sodium [Synthroid] 75 mcg PO DAILY 01/20/19 11/15/20 History Venlafaxine HCl [Effexor XR] 75 mg PO HS 01/20/19 11/15/20 History Venlafaxine HCl [Effexor XR] 150 mg PO DAILY 01/20/19 11/15/20 History lisinopriL [Zestril] 5 mg PO HS 01/20/19 11/15/20 History Amiodarone [Cordarone] 200 mg PO BID 05/03/19 11/15/20 History Cyanocobalamin [Vitamin B-12] 500 mcg PO DAILY 05/03/19 11/15/20 History Atorvastatin [Lipitor] 80 mg PO HS 07/26/20 11/15/20 History Ergocalciferol [Vitamin D2 (1250 1,250 mcg PO Q14D 07/26/20 11/15/20 History Mcg = 16750 Iu)] Gabapentin 600 mg PO QID 07/26/20 11/15/20 History metFORMIN HCL [Glucophage] 1,000 mg PO AC-BID 07/26/20 11/15/20 History Folic Acid 1 mg PO DAILY tab 10/12/20 11/15/20 Rx Insulin Detemir (Levemir) [Levemir] 35 unit SQ HS 10/23/20 11/15/20 History Insulin Detemir (Levemir) [Levemir] 40 unit SQ AC-BRKFST 10/23/20 11/15/20 History Levothyroxine Sodium [Synthroid] 200 mcg PO DAILY 10/23/20 11/15/20 History Docusate [Colace] 100 mg PO DAILY 10/28/20 11/15/20 History Furosemide [Lasix] 20 mg PO HS 10/28/20 11/15/20 History Furosemide [Lasix] 40 mg PO DAILY tab 11/16/20 Rx Allergies Allergy/AdvReac Type Severity Reaction Status Date / Time fluoxetine HCl [From Prozac] Allergy Intermediate Itching Verified 11/15/20 13:53 Sulfa (Sulfonamide Allergy Intermediate Itching Verified 11/15/20 13:53 Antibiotics) mercury (elemental) Allergy Rash/Hives Verified 11/15/20 13:53 gluten AdvReac Intermediate Nausea & Verified 11/15/20 13:53 Vomiting Physical Exam Vitals: Vital Signs Temp Pulse Pulse Resp BP BP Pulse Ox 11/16/20 05:56 97.8 F 78 18 132/54 96 11/16/20 01:36 98.1 F 84 16 155/60 93 L 11/16/20 00:50 98.2 F 81 18 124/58 94 L 11/15/20 23:37 80 18 109/50 94 L 11/15/20 22:10 16 11/15/20 20:50 74 18 129/56 97 11/15/20 19:20 81 18 113/59 98 11/15/20 17:02 76 18 115/57 96 11/15/20 13:30 98.7 F 72 18 125/56 98 Intake and Output 11/15/20 11/16/20 11/16/20 22:59 06:59 14:59 Other: Voiding Method Toilet Weight 118.841 kg Results CBC & Chem 7: 11/16/20 06:20 11/15/20 14:53 Labs: Abnormal Lab Results - Last 24 Hours (Table) 11/15/20 11/15/20 11/15/20 Range/Units 14:53 14:53 15:01 RBC 2.68 L (3.80-5.40) m/uL Hgb 9.2 L (11.4-16.0) gm/dL Hct 27.1 L (34.0-46.0) % MCV 101.1 H (80.0-100.0) fL MCH (25.0-35.0) pg RDW 24.6 H (11.5-15.5) % Plt Count 39 L (150-450) k/uL Lymphocytes # 0.9 L (1.0-4.8) k/uL Macrocytosis Marked A APTT 15.3 L (22.0-30.0) sec Potassium 5.2 H (3.5-5.1) mmol/L BUN 41 H (7-17) mg/dL Creatinine 1.48 H (0.52-1.04) mg/dL AST 47 H (14-36) U/L ALT 76 H (4-34) U/L 11/16/20 Range/Units 06:20 RBC 2.09 L (3.80-5.40) m/uL Hgb 7.4 L D (11.4-16.0) gm/dL Hct 21.2 L (34.0-46.0) % MCV 101.6 H (80.0-100.0) fL MCH 35.2 H (25.0-35.0) pg RDW 25.1 H (11.5-15.5) % Plt Count 41 L (150-450) k/uL Lymphocytes # (1.0-4.8) k/uL Macrocytosis Marked A APTT (22.0-30.0) sec Potassium (3.5-5.1) mmol/L BUN (7-17) mg/dL Creatinine (0.52-1.04) mg/dL AST (14-36) U/L ALT (4-34) U/L Thrombosis Risk Factor Assmnt - Choose All That Apply Any of the Below Risk Factors Present?: Yes Each Factor Represents 1 point: Obesity (BMI >25) Each Risk Factor Represents 2 Points: Age 61-74 years Thrombosis Risk Factor Assessment Total Risk Factor Score: 3 Thrombosis Risk Factor Assessment Level: Moderate Risk
[2020-11-16] MEDS ORDERED: FUROSEMIDE 20 MG TAB PO SCH (21:00)
[2020-11-16] MEDS ORDERED: INSULIN DETEMIR (LEVEMIR) 100 UNIT/ML SYR SQ SCH (21:00)
[2020-11-16] MEDS ORDERED: lisinopriL 5 MG TAB PO SCH (21:00)
[2020-11-16] MEDS ORDERED: VENLAFAXINE HCL ER 75 MG CAP PO SCH (21:00)
[2020-11-16] MEDS ORDERED: ATORVASTATIN 80 MG TAB PO SCH (21:00)
[2020-11-17] MEDS ORDERED: INSULIN DETEMIR (LEVEMIR) 100 UNIT/ML SYR SQ SCH (07:30)
[2020-11-17] MEDS ORDERED: DOCUSATE 100 MG CAP PO SCH (09:00)
== END 2020-11-16 16:10 | disposition home health service (06) ==
LOC: EC 13:19 → 5NMEDONC 20:59
PROVIDERS: ADMIT Internal Medicine; ATTEND Internal Medicine
DX: D46.4 Refractory anemia, unspecified (principal); R53.1 Weakness; R06.02 Shortness of breath; R60.0 Localized edema; Z87.891 Personal history of nicotine dependence; E03.9 Hypothyroidism, unspecified; E11.22 Type 2 diabetes mellitus with diabetic chronic kidney disease; E78.5 Hyperlipidemia, unspecified; F33.9 Major depressive disorder, recurrent, unspecified; F41.1 Generalized anxiety disorder; G47.33 Obstructive sleep apnea (adult) (pediatric); I12.9 Hypertensive chronic kidney disease with stage 1 through stage 4 chronic kidney disease, or unspecified chronic kidney disease; I25.2 Old myocardial infarction; I48.0 Paroxysmal atrial fibrillation; M79.7 Fibromyalgia; N18.30 Chronic kidney disease, stage 3 unspecified; Z82.49 Family history of ischemic heart disease and other diseases of the circulatory system; Z85.3 Personal history of malignant neoplasm of breast; Z90.13 Acquired absence of bilateral breasts and nipples
CPT/HCPCS: 99285; 96374; 36415; 86900; 86901; 80053; 82607; 82746; 83540; 83550; 85025 ×2; 85610; 85730; 86850; 81003; 71046; 70450; G0378 ×2; C9113

== ENCOUNTER 2020-11-19 16:03 | Observation (INO) | payer MEDICARE ==
[2020-11-19] MEDS ORDERED: SODIUM CHLORIDE 0.9% 1,000 ML IV STA (18:48)
[2020-11-19 18:59] LABS: Anisocytosis Marked; Hypochromasia Slight; MCH 34.6 pg (25.0-35.0); MCV 101.9 fL (80.0-100.0); Macrocytosis Marked; Mean Platelet Volume 8.8; Poikilocytosis Moderate; RBC 1.84 m/uL (3.80-5.40); WBC 4.9 k/uL (3.8-10.6)
[2020-11-19 19:07] LABS: INR 0.9 (<1.2); Prothrombin Time 9.9 sec (9.0-12.0)
[2020-11-19 19:16] LABS: Albumin 3.6 g/dL (3.5-5.0); Calcium 8.6 mg/dL (8.4-10.2); Potassium 4.5 mmol/L (3.5-5.1); Total Bilirubin 0.2 mg/dL (0.2-1.3)
[2020-11-19 19:19] LABS: HCT 18.7 % (34.0-46.0); HGB 6.4 gm/dL (11.4-16.0)
[2020-11-19 19:23] LABS: Partial Thromboplastin Time 19.4 sec (22.0-30.0)
[2020-11-19 19:57] LABS: Platelet Count 48 k/uL (150-450)
[2020-11-19 20:02] LABS: Basophils # (M) 0.05 k/uL (0-0.2); Lymphocytes # (M) 1.47 k/uL (1.0-4.8); Monocytes # (M) 0.39 k/uL (0-1.0); Neutrophils # (M) 2.89 k/uL (1.3-7.7); Neutrophils % (M) 59 %; Nucleated Red Blood Cells 0 /100 WBC (0-0); Total Cells Counted 100
--- NOTE | 2020-11-19 21:31 | ED ---
General Adult HPI - General Chief complaint: Recheck/Abnormal Lab/Rx Stated complaint: low hemoglobin Time Seen by Provider: 11/19/20 18:29 Source: patient Mode of arrival: ambulatory - History of Present Illness Initial comments: This 75-year-old female presents with daughter with the complaint of some weakness and anemia. She has a history of myelodysplastic syndrome. She was just hospitalized this past week and discharged 3 days ago for similar. She saw her warehouse coordinator today, Dr. Siddiqui, and he sent her to the emergency department as her hemoglobin was 5.7. She does complain of some moderate to significant weakness. She has a long history of similar. She has received blood transfusions multiple times in the past. She denies any blood in her stool or black tarry stools. No other complaints or modifying factors. She denies any chest pain or shortness of breath. - Related Data Home Medications Medication Instructions Recorded Confirmed Spironolactone [Aldactone] 25 mg PO DAILY 01/01/14 11/19/20 Levothyroxine Sodium [Synthroid] 75 mcg PO DAILY 01/20/19 11/19/20 Venlafaxine HCl [Effexor XR] 75 mg PO HS 01/20/19 11/19/20 Venlafaxine HCl [Effexor XR] 150 mg PO DAILY 01/20/19 11/19/20 lisinopriL [Zestril] 5 mg PO HS 01/20/19 11/19/20 Amiodarone [Cordarone] 200 mg PO BID 05/03/19 11/19/20 Cyanocobalamin [Vitamin B-12] 500 mcg PO DAILY 05/03/19 11/19/20 Atorvastatin [Lipitor] 80 mg PO HS 07/26/20 11/19/20 Ergocalciferol [Vitamin D2 (1250 1,250 mcg PO Q14D 07/26/20 11/19/20 Mcg = 84905 Iu)] Gabapentin 600 mg PO QID 07/26/20 11/19/20 metFORMIN HCL [Glucophage] 1,000 mg PO AC-BID 07/26/20 11/19/20 Insulin Detemir (Levemir) [Levemir] 35 unit SQ HS 10/23/20 11/19/20 Insulin Detemir (Levemir) [Levemir] 40 unit SQ AC-BRKFST 10/23/20 11/19/20 Levothyroxine Sodium [Synthroid] 200 mcg PO DAILY 10/23/20 11/19/20 Docusate [Colace] 100 mg PO DAILY 10/28/20 11/19/20 Furosemide [Lasix] 20 mg PO HS 10/28/20 11/19/20 Furosemide [Lasix] 40 mg PO DAILY 11/19/20 11/19/20 INSULIN LISPRO (humaLOG) [humaLOG] 10 units SQ BID PRN 11/19/20 11/19/20 INSULIN LISPRO (humaLOG) [humaLOG] 10 units SQ HS PRN 11/19/20 11/19/20 Previous Rx's Medication Instructions Recorded Folic Acid 1 mg PO DAILY tab 10/12/20 Allergies Allergy/AdvReac Type Severity Reaction Status Date / Time fluoxetine HCl [From Prozac] Allergy Intermediate Itching Verified 11/19/20 20:05 Sulfa (Sulfonamide Allergy Intermediate Itching Verified 11/19/20 20:05 Antibiotics) mercury (elemental) Allergy Rash/Hives Verified 11/19/20 20:05 gluten AdvReac Intermediate Nausea & Verified 11/19/20 20:05 Vomiting Review of Systems ROS Statement: Those systems with pertinent positive or pertinent negative responses have been documented in the HPI. ROS Other: All systems not noted in ROS Statement are negative. Past Medical History Past Medical History: Atrial Fibrillation, Blood Disorder, Cancer, Diabetes Mellitus, Hyperlipidemia, Hypertension, Renal Disease, Sleep Apnea/CPAP/BIPAP, Thyroid Disorder Additional Past Medical History / Comment(s): Heart disease, ocular neuritis, refractory anemia, breast cancer, myelodyspasia, reblozyl injection every 3 weeks for anemia, Last Myocardial Infarction Date:: 2018 History of Any Multi-Drug Resistant Organisms: None Reported Past Surgical History: Appendectomy, Breast Surgery, Cholecystectomy, Heart Catheterization With Stent Additional Past Surgical History / Comment(s): bilateral masectomy, heart cath follow up in 2000 port-a-cath 2020 Past Anesthesia/Blood Transfusion Reactions: No Reported Reaction Additional Past Anesthesia/Blood Transfusion Reaction / Comment(s): Pt has received blood without reaction. Date of Last Stent Placement:: 1997 Past Psychological History: Depression Smoking Status: Former smoker Past Alcohol Use History: None Reported Past Drug Use History: None Reported - Past Family History Father Family Medical History: Coronary Artery Disease (CAD), Hypertension, Myocardial Infarction ([place]) Additional Family Medical History / Comment(s): Father at age 72 from coronary artery disease with history of diabetes Mother Family Medical History: Coronary Artery Disease (CAD) Additional Family Medical History / Comment(s): Mother at age 72 with history of coronary artery disease and diabetes. Sister(s) Additional Family Medical History / Comment(s): Patient has 1 sister with no major medical problems. Patient does not have. His. Patient has 1 daughter with no major medical problems. No history of breast cancer. General Exam - General Exam Comments Initial Comments: GENERAL: The patient is well nourished and well hydrated. VITAL SIGNS: Heart rate, blood pressure, respiratory rate reviewed as recorded in nurse's notes. EYES: Pupils are round and reactive. Extraocular movements are intact. No conjunctival / lid redness or swelling. ENT: No external evidence of injury, swelling, or ecchymosis. Airway is patent. Throat is clear. NECK: Nontender. No swelling or evidence of injury. No subcutaneous emphysema. Trachea is midline. No thyroid mass. HEART: Regular rate and rhythm. Good peripheral pulses. LUNGS/CHEST: Breath sounds clear and equal bilaterally. No rales, rhonchi, or wheezes. No ecchymosis, subcutaneous emphysema, or tenderness. ABDOMEN: Abdomen soft without tenderness. No palpable masses or organomegaly. No peritoneal signs. No abdominal wall swelling or ecchymosis. EXTREMITIES: No extremity tenderness. Normal muscle tone and function. No thoracolumbar tenderness. NEUROLOGIC: Sensation is grossly intact. Cranial nerve exam reveals face is symmetrical, tongue is midline, speech is clear. SKIN: No abrasions or ecchymosis is noted. No induration or masses noted. Appears pale. PSYCHIATRIC: Alert and oriented. Appropriate behavior and judgment. Course Vital Signs 11/19/20 11/19/20 11/19/20 16:23 18:32 20:19 Temperature 98.1 F Pulse Rate 84 73 73 Respiratory 18 18 20 Rate Blood Pressure 147/57 115/48 135/69 O2 Sat by Pulse 98 98 98 Oximetry Medical Decision Making - Medical Decision Making The patient was seen and examined. All diagnostics were reviewed. An IV is established and she is mildly hydrated. She also receives an EKG which shows a normal sinus rhythm at a rate of 75. There is no acute ST-T wave changes identified. The LA intervals 182, QRS duration is 78, and the QTC intervals 475. The laboratories reviewed and shows that her hemoglobin is low at 6.4 and her platelets are low at 48. The patient and daughter reassure me that this is related to her myelodysplastic syndrome as per Dr. montejo upon evaluation today. No workup is necessary in regards to GI bleeding as this has been accomplished in the past. Pages out for Dr. Siddiqui and case will be discussed with them shortly. It is felt as though the patient will require admission to the hospital for further treatment. She is agreeable with this. Blood products for transfusion will be completed shortly. Patient is agreeable with transfusion. Risks and benefits are discussed. Case also will be discussed with internal medicine in the near future as well. - Lab Data Result diagrams: 11/19/20 18:51 11/19/20 18:51 Lab Results 11/19/20 11/19/20 11/19/20 Range/Units 18:51 18:51 18:51 WBC 4.9 (3.8-10.6) k/uL RBC 1.84 L (3.80-5.40) m/uL Hgb 6.4 L* (11.4-16.0) gm/dL Hct 18.7 L* (34.0-46.0) % MCV 101.9 H (80.0-100.0) fL MCH 34.6 (25.0-35.0) pg MCHC 34.0 (31.0-37.0) g/dL RDW 26.0 H (11.5-15.5) % Plt Count 48 L (150-450) k/uL MPV 8.8 Neutrophils % (Manual) 59 % Lymphocytes % (Manual) 30 % Monocytes % (Manual) 8 % Eosinophils % (Manual) 2 % Basophils % (Manual) 1 % Neutrophils # (Manual) 2.89 (1.3-7.7) k/uL Lymphocytes # (Manual) 1.47 (1.0-4.8) k/uL Monocytes # (Manual) 0.39 (0-1.0) k/uL Eosinophils # (Manual) 0.10 (0-0.7) k/uL Basophils # (Manual) 0.05 (0-0.2) k/uL Nucleated RBCs 0 (0-0) /100 WBC Manual Slide Review Performed Hypochromasia Slight Poikilocytosis Moderate Anisocytosis Marked Macrocytosis Marked A PT 9.9 (9.0-12.0) sec INR 0.9 (<1.2) APTT 19.4 L (22.0-30.0) sec Sodium 138 (137-145) mmol/L Potassium 4.5 (3.5-5.1) mmol/L Chloride 105 (98-107) mmol/L Carbon Dioxide 22 (22-30) mmol/L Anion Gap 11 mmol/L BUN 36 H (7-17) mg/dL Creatinine 1.08 H (0.52-1.04) mg/dL Est GFR (CKD-EPI)AfAm 58 (>60 ml/min/1.73 sqM) Est GFR (CKD-EPI)NonAf 50 (>60 ml/min/1.73 sqM) Glucose 122 H (74-99) mg/dL Calcium 8.6 (8.4-10.2) mg/dL Total Bilirubin 0.2 (0.2-1.3) mg/dL AST 31 (14-36) U/L ALT 49 H (4-34) U/L Alkaline Phosphatase 121 (38-126) U/L Total Protein 6.0 L (6.3-8.2) g/dL Albumin 3.6 (3.5-5.0) g/dL Blood Type Blood Type Recheck Bld Type Recheck Status Antibody Screen Spec Expiration Date 11/19/20 Range/Units 18:51 WBC (3.8-10.6) k/uL RBC (3.80-5.40) m/uL Hgb (11.4-16.0) gm/dL Hct (34.0-46.0) % MCV (80.0-100.0) fL MCH (25.0-35.0) pg MCHC (31.0-37.0) g/dL RDW (11.5-15.5) % Plt Count (150-450) k/uL MPV Neutrophils % (Manual) % Lymphocytes % (Manual) % Monocytes % (Manual) % Eosinophils % (Manual) % Basophils % (Manual) % Neutrophils # (Manual) (1.3-7.7) k/uL Lymphocytes # (Manual) (1.0-4.8) k/uL Monocytes # (Manual) (0-1.0) k/uL Eosinophils # (Manual) (0-0.7) k/uL Basophils # (Manual) (0-0.2) k/uL Nucleated RBCs (0-0) /100 WBC Manual Slide Review Hypochromasia Poikilocytosis Anisocytosis Macrocytosis PT (9.0-12.0) sec INR (<1.2) APTT (22.0-30.0) sec Sodium (137-145) mmol/L Potassium (3.5-5.1) mmol/L Chloride (98-107) mmol/L Carbon Dioxide (22-30) mmol/L Anion Gap mmol/L BUN (7-17) mg/dL Creatinine (0.52-1.04) mg/dL Est GFR (CKD-EPI)AfAm (>60 ml/min/1.73 sqM) Est GFR (CKD-EPI)NonAf (>60 ml/min/1.73 sqM) Glucose (74-99) mg/dL Calcium (8.4-10.2) mg/dL Total Bilirubin (0.2-1.3) mg/dL AST (14-36) U/L ALT (4-34) U/L Alkaline Phosphatase (38-126) U/L Total Protein (6.3-8.2) g/dL Albumin (3.5-5.0) g/dL Blood Type A Positive Blood Type Recheck A Pos Bld Type Recheck Status No Antibody Screen NEGATIVE Spec Expiration Date 11/22/2020 - 2350 Disposition Clinical Impression: Anemia, Myelodysplastic syndrome, Weakness Disposition: ADMITTED IP TO THIS [facility] Condition: Fair Is patient prescribed a controlled substance at d/c from ED?: No Referrals: Jaxon Palacios MD [Primary Care Provider] - 1-2 days Time of Disposition: 21:31
[2020-11-19] MEDS ORDERED: NALOXONE 0.4 MG/ML 1 ML VIAL IV PRN (22:27)
[2020-11-19] MEDS ORDERED: ACETAMINOPHEN TAB 325 MG TAB PO PRN (22:27)
[2020-11-19] MEDS ORDERED: ONDANSETRON 4 MG/2 ML VIAL IVP PRN (22:27)
[2020-11-19] MEDS ORDERED: INSULIN ASPART (NovoLOG) 100 UNIT/ML VIAL SQ PRN ×2 (22:31)
[2020-11-20 03:14] VITALS: TEMP 98.3
[2020-11-20 06:07] LABS: Glucose,Whole Blood 113 mg/dL (75-99)
[2020-11-20] MEDS ORDERED: LEVOTHYROXINE 100 MCG TAB PO SCH (06:30)
[2020-11-20] MEDS ORDERED: LEVOTHYROXINE 75 MCG TAB PO SCH (06:30)
[2020-11-20] MEDS ORDERED: PANTOPRAZOLE 40 MG TABLET PO SCH (07:30)
[2020-11-20] MEDS ORDERED: INSULIN DETEMIR (LEVEMIR) 100 UNIT/ML SYR SQ SCH ×2 (07:30→21:00)
[2020-11-20] MEDS ORDERED: metFORMIN 500 MG TAB PO SCH (07:30)
[2020-11-20 07:51] LABS: Anisocytosis Moderate; Basophils % (A) 0 %; Eosinophils # (A) 0.1 k/uL (0-0.7); Eosinophils % (A) 3 %; HCT 24.3 % (34.0-46.0); Lymphocytes % (A) 27 %; MCH 31.9 pg (25.0-35.0); MCHC 33.4 g/dL (31.0-37.0); Macrocytosis Moderate; Mean Platelet Volume 8.2; Monocytes # (A) 0.3 k/uL (0-1.0); Monocytes % (A) 9 %; Neutrophils # (A) 2.1 k/uL (1.3-7.7); Neutrophils % (A) 58 %; Poikilocytosis Slight; RBC 2.55 m/uL (3.80-5.40); RDW 23.9 % (11.5-15.5); WBC 3.6 k/uL (3.8-10.6)
[2020-11-20 08:52] LABS: HGB 8.1 gm/dL (11.4-16.0)
[2020-11-20 08:53] LABS: MCV 95.4 fL (80.0-100.0); Platelet Count 46 k/uL (150-450)
[2020-11-20] MEDS ORDERED: SPIRONOLACTONE 25 MG TAB PO SCH (09:00)
[2020-11-20] MEDS ORDERED: AMIODARONE 200 MG TAB PO SCH (09:00)
[2020-11-20] MEDS ORDERED: FOLIC ACID 1 MG TAB PO SCH (09:00)
[2020-11-20] MEDS ORDERED: FUROSEMIDE 40 MG TAB PO SCH (09:00)
[2020-11-20] MEDS ORDERED: ENOXAPARIN 40 MG/0.4 ML SYRINGE SQ SCH (09:00)
[2020-11-20] MEDS ORDERED: CYANOCOBALAMIN 500 MCG TAB PO SCH (09:00)
[2020-11-20] MEDS ORDERED: VENLAFAXINE HCL ER 150 MG CAP PO SCH (09:00)
[2020-11-20] MEDS ORDERED: DOCUSATE 100 MG CAP PO SCH (09:00)
[2020-11-20] MEDS: GABAPENTIN 300 MG CAP PO SCH ×2 (09:19→14:06)
[2020-11-20 11:01] LABS: Glucose,Whole Blood 150 mg/dL (75-99)
--- NOTE | 2020-11-20 14:47 | P.HPIM ---
History of Present Illness H&P Date: 11/20/20 (This document was of both his H&P and discharge summary) This is a 75-year-old patient of Dr. Palacios with past medical history of right- sided breast cancer status post bilateral mastectomy in 2008, hypertension, hyperlipidemia, paroxysmal atrial fibrillation, diabetes mellitus type 2, fibromyalgia, generalized anxiety disorder and recurrent depression, obstructive sleep apnea with CPAP, gastroesophageal reflux disease, chronic kidney disease stage III, myelodysplastic syndrome with pancytopenia, chronic anemia requiring blood transfusions every 1-2 weeks. She had a recent hospitalization October 10 through October 12 at which time she was treated for severe anemia status post 1 unit of packed RBCs with hemoglobin at the time of discharge is 7.2. He was again admitted October 23 through October 25 and received 5.4. Last admission on 10/29/2020 to 10/30/2020 for similar reason. Patient last seen on 11/19 weakness with hemoglobin 9.2 that fell to 7.4 on discharge. Patient details were discussed with the oncologist who felt comfortable at hemoglobin between 6.5- 7.5. Patient comes in again with similar symptoms including increased weakness and irritability . She was seen in the ER and was found to hemoglobin of 6.4. WBC 4.9 platelet 48 which is patient's baseline. Patient received 2 units of PRBC which improved her hemoglobin to 8.1 this morning. On assessment this morning patient has vitals suggesting she is afebrile pulse 74 respiratory rate 18 blood pressure 155/54 oxygen saturation 95% room air. Patient was seen at bedside denies any weakness. Patient is able to come in and out of bed without any assistance. PT and OT has assessed the patient denies any need of mcfp. Patient does need bedside commode as has decreased mobility and need to be at one level . Detailed discussion about patient's prognosis was made patient understands understand that there is no treatable sources for her myelodysplastic syndrome. Oncology team has discussed hospice care in the past with the patient and will get frequent blood draw and set up outpatient transfusions to prevent hospitalizations Review Of Systems: Constitutional: No fever, no chills, no night sweats. No weight change. Reports weakness and fatigue . No daytime sleepiness. EENT: No headache. No blurred vision or double vision, no loss of vision. No loss of Hearing, no ringing in the ears, no dizziness. No nasal drainage or congestion. No epistaxis. No sore throat. Lungs: No shortness of breath, cough, no sputum production. No wheezing. Shortness of breath with exertion. Cardiovascular: Denies chest pain, reports chronic lower extremity edema. No palpitations. No paroxysmal nocturnal dyspnea. No orthopnea. Denies lightheadedness and dizziness. No syncopal episodes. Abdominal: no abdominal discomfort. No nausea, vomiting. no diarrhea. No constipation. No bloody or tarry stools. no loss of appetite. Genitourinary: No dysuria, increased frequency, urgency. No urinary retention. Denies vaginal bleeding. Musculoskeletal: No myalgias. No muscle weakness, no gait dysfunction, no frequent falls. No back pain. No neck pain. Integumentary: No wounds, no lesions. No rash or pruritus. No unusual bruising. No change in hair or nails. Neurologic: No aphasia. No facial droop. No change in mentation. No head injury. No headache. No paralysis. No paresthesia. Positive for ataxia Psychiatric: Reports depression. Reports anxiety. No mood swings. Endocrine: No abnormal blood sugars. No weight change. No excessive sweating or thirst. Social history: Previous smoker of 4 packs per day for 20 years and quit approximate 20 years ago. Denies any marijuana versus drug use. No alcohol use. She is at home with her daughter. Utilizes a CPAP and nebulizer. Patient is . Family history: Father at 72 from coronary artery disease with history of diabetes, mother at the age of 72 from coronary artery disease with history of diabetes and breast cancer, sister with no major medical issues other than hypertension, one daughter who has hypertension. Physical examination General Appearance: Alert, cooperative, no distress, appears stated age. Neck HEENT: Supple, no lymphadenopathy, no thyroid enlargement, no carotid bruits. Lungs: Clear to auscultation without crackles or wheezes no rhonchi, no deformity. Chest Wall: Chest wall normal expansion with deep inspiration no tenderness and no deformity was found on exam, no costochondral pain or discomfort. Heart: Regular rate and rhythm, S1, S2 normal, no murmur, rub or gallop. Back: Symmetric, no curvature, ROM normal, no CVA tenderness. Abdomen: Soft, non-tender, no rebound or rigidity, no hepatosplenomegaly. Extremities: Extremities normal, atraumatic, no cyanosis or 1+ edema to the left lower extremity, trace right lower extremity edema and tenderness. Pulses: 2+ and symmetric. Skin: Skin color, texture, tugor normal, no rashes or lesions. Neurologic: Alert oriented x3 cranial nerves II through XII intact, no motor deficit, no abnormal balance or gait Assessment and plan 1. Severe chronic anemia of chronic disease secondary to myelodysplastic syndrome. Baseline hemoglobin 6-7.4. Hemoglobin on admission 5.7. Status post transfusion Patient is currently at baseline no transfusions as needed Iron stores are repleted. 2. History of myelodysplastic syndrome. Follow-up with oncology as outpatient 3. Lower extremity edema, with recent ultrasound negative for DVT. Continue Lasix 40 mg daily and 20 mg in the afternoon, Aldactone 25 mg daily, IV fluids discontinued 4. Chronic kidney disease stage III. Avoid neurotoxins. Monitor renal funct ion daily. Continue lisinopril, Lasix and Aldactone 5. GERD and GI prophylaxis. Protonix 40 mg IV daily. 6. Diabetes mellitus type 2. Metformin 1000 mg twice daily on hold, continue NovoLog sliding scale. Continue Levemir 35 units at bedtime and 40 units at bedtime 7. Hypertension. Continue amiodarone 200 mg twice daily, Lasix, lisinopril 5 mg at bedtime, metoprolol 50 mg twice daily. 8. Paroxysmal atrial fibrillation. Continue amiodarone 200 mg by mouth twice a day, metoprolol 50 mg twice daily 9. Hyperlipidemia. Atorvastatin 80 mg by mouth at bedtime 10. Hypothyroidism. Levothyroxine 75 MCG's by mouth daily 11. Fibromyalgia, stable. Gabapentin 600 mg by mouth every 5 hours, continue Ultram 50 mg by mouth daily 12. History of breast cancer status post bilateral mastectomy. 13. Generalized anxiety disorder recurrent depression. Continue Effexor 75 mg by mouth at bedtime, 150mg by mouth daily 14. Obstructive sleep apnea. Continue CPAP. 15. DVT prophylaxis. SCDs. 16. Severe debility. Patient has decreased strength and is unable to walk long distances. She is able to transition from chair to the bed without any assistance. Bedside commode would benefit patient as patient has significant debility and needs to be at 1 CODE STATUS: No code Past Medical History Past Medical History: Atrial Fibrillation, Blood Disorder, Cancer, Diabetes Mellitus, Hyperlipidemia, Hypertension, Renal Disease, Sleep Apnea/CPAP/BIPAP, Thyroid Disorder Additional Past Medical History / Comment(s): Heart disease, ocular neuritis, refractory anemia, breast cancer, myelodyspasia, reblozyl injection every 3 weeks for anemia, Last Myocardial Infarction Date:: 2018 History of Any Multi-Drug Resistant Organisms: None Reported Past Surgical History: Appendectomy, Breast Surgery, Cholecystectomy, Heart Catheterization With Stent Additional Past Surgical History / Comment(s): bilateral masectomy, heart cath follow up in 2000 port-a-cath 2020 Past Anesthesia/Blood Transfusion Reactions: No Reported Reaction Additional Past Anesthesia/Blood Transfusion Reaction / Comment(s): Pt has received blood without reaction. Date of Last Stent Placement:: 1997 Past Psychological History: Depression Smoking Status: Former smoker Past Alcohol Use History: None Reported Past Drug Use History: None Reported - Past Family History Father Family Medical History: Coronary Artery Disease (CAD), Hypertension, Myocardial Infarction ([place]) Additional Family Medical History / Comment(s): Father at age 72 from coronary artery disease with history of diabetes Mother Family Medical History: Coronary Artery Disease (CAD) Additional Family Medical History / Comment(s): Mother at age 72 with history of coronary artery disease and diabetes. Sister(s) Additional Family Medical History / Comment(s): Patient has 1 sister with no major medical problems. Patient does not have. His. Patient has 1 daughter with no major medical problems. No history of breast cancer. Medications and Allergies Home Medications Medication Instructions Recorded Confirmed Type Spironolactone [Aldactone] 25 mg PO DAILY 01/01/14 11/19/20 History Levothyroxine Sodium [Synthroid] 75 mcg PO DAILY 01/20/19 11/19/20 History Venlafaxine HCl [Effexor XR] 75 mg PO HS 01/20/19 11/19/20 History Venlafaxine HCl [Effexor XR] 150 mg PO DAILY 01/20/19 11/19/20 History lisinopriL [Zestril] 5 mg PO HS 01/20/19 11/19/20 History Amiodarone [Cordarone] 200 mg PO BID 05/03/19 11/19/20 History Cyanocobalamin [Vitamin B-12] 500 mcg PO DAILY 05/03/19 11/19/20 History Atorvastatin [Lipitor] 80 mg PO HS 07/26/20 11/19/20 History Ergocalciferol [Vitamin D2 (1250 1,250 mcg PO Q14D 07/26/20 11/19/20 History Mcg = 11878 Iu)] Gabapentin 600 mg PO QID 07/26/20 11/19/20 History metFORMIN HCL [Glucophage] 1,000 mg PO AC-BID 07/26/20 11/19/20 History Folic Acid 1 mg PO DAILY tab 10/12/20 11/19/20 Rx Insulin Detemir (Levemir) [Levemir] 35 unit SQ HS 10/23/20 11/19/20 History Insulin Detemir (Levemir) [Levemir] 40 unit SQ AC-BRKFST 10/23/20 11/19/20 History Levothyroxine Sodium [Synthroid] 200 mcg PO DAILY 10/23/20 11/19/20 History Docusate [Colace] 100 mg PO DAILY 10/28/20 11/19/20 History Furosemide [Lasix] 20 mg PO HS 10/28/20 11/19/20 History Furosemide [Lasix] 40 mg PO DAILY 11/19/20 11/19/20 History INSULIN LISPRO (humaLOG) [humaLOG] 10 units SQ BID PRN 11/19/20 11/19/20 History INSULIN LISPRO (humaLOG) [humaLOG] 10 units SQ HS PRN 11/19/20 11/19/20 History Allergies Allergy/AdvReac Type Severity Reaction Status Date / Time fluoxetine HCl [From Prozac] Allergy Intermediate Itching Verified 11/19/20 20:05 Sulfa (Sulfonamide Allergy Intermediate Itching Verified 11/19/20 20:05 Antibiotics) mercury (elemental) Allergy Rash/Hives Verified 11/19/20 20:05 gluten AdvReac Intermediate Nausea & Verified 11/19/20 20:05 Vomiting Physical Exam Vitals: Vital Signs Temp Pulse Resp BP Pulse Ox 11/20/20 12:00 65 18 135/57 11/20/20 09:19 78 18 152/77 98 11/20/20 06:35 98.3 F 84 20 167/65 96 11/20/20 04:57 98.3 F 74 18 155/54 95 11/20/20 02:48 98.3 F 73 20 154/55 95 11/20/20 02:18 98.4 F 75 18 148/58 95 11/20/20 02:08 98.3 F 75 18 144/55 98 11/20/20 02:04 98.2 F 76 18 148/59 98 11/20/20 02:00 75 20 95 11/20/20 00:43 97.6 F 74 20 146/58 95 11/20/20 00:13 97.4 F L 74 20 136/54 97 11/20/20 00:03 98.1 F 73 18 113/52 99 11/19/20 22:00 71 20 134/52 96 11/19/20 21:00 74 20 139/56 96 11/19/20 20:19 73 20 135/69 98 11/19/20 18:32 73 18 115/48 98 11/19/20 16:23 98.1 F 84 18 147/57 98 Intake and Output 11/19/20 11/20/20 11/20/20 22:59 06:59 14:59 Intake Total 620 Balance 620 Intake: Blood Product 620 Rc As-1 Unit 310 [id number] Rc As-1 Unit 310 [id number] Other: Weight 121.563 kg Results CBC & Chem 7: 11/20/20 07:23 11/19/20 18:51 Labs: Abnormal Lab Results - Last 24 Hours (Table) 11/19/20 11/19/20 11/19/20 Range/Units 18:51 18:51 18:51 WBC (3.8-10.6) k/uL RBC 1.84 L (3.80-5.40) m/uL Hgb 6.4 L* (11.4-16.0) gm/dL Hct 18.7 L* (34.0-46.0) % MCV 101.9 H (80.0-100.0) fL RDW 26.0 H (11.5-15.5) % Plt Count 48 L (150-450) k/uL Macrocytosis Marked A APTT 19.4 L (22.0-30.0) sec BUN 36 H (7-17) mg/dL Creatinine 1.08 H (0.52-1.04) mg/dL Glucose 122 H (74-99) mg/dL POC Glucose (mg/dL) (75-99) mg/dL ALT 49 H (4-34) U/L Total Protein 6.0 L (6.3-8.2) g/dL Crossmatch 11/19/20 11/20/20 11/20/20 Range/Units 18:51 06:06 07:23 WBC 3.6 L (3.8-10.6) k/uL RBC 2.55 L (3.80-5.40) m/uL Hgb 8.1 L D (11.4-16.0) gm/dL Hct 24.3 L (34.0-46.0) % MCV (80.0-100.0) fL RDW 23.9 H (11.5-15.5) % Plt Count 46 L (150-450) k/uL Macrocytosis APTT (22.0-30.0) sec BUN (7-17) mg/dL Creatinine (0.52-1.04) mg/dL Glucose (74-99) mg/dL POC Glucose (mg/dL) 113 H (75-99) mg/dL ALT (4-34) U/L Total Protein (6.3-8.2) g/dL Crossmatch See Detail 11/20/20 Range/Units 10:59 WBC (3.8-10.6) k/uL RBC (3.80-5.40) m/uL Hgb (11.4-16.0) gm/dL Hct (34.0-46.0) % MCV (80.0-100.0) fL RDW (11.5-15.5) % Plt Count (150-450) k/uL Macrocytosis APTT (22.0-30.0) sec BUN (7-17) mg/dL Creatinine (0.52-1.04) mg/dL Glucose (74-99) mg/dL POC Glucose (mg/dL) 150 H (75-99) mg/dL ALT (4-34) U/L Total Protein (6.3-8.2) g/dL Crossmatch
--- NOTE | 2020-11-20 15:55 | P.CONS ---
History of Present Illness - Reason for Consult Consult date: 11/20/20 anemia Requesting physician: Keenan Mccormack - Chief Complaint weakness - History of Present Illness This is patient's status ER visit in about 5 weeks. We have attempted to set her up for lab draws twice a week so that she can be transfused proactively in the outpatient setting. Unfortunately she keeps developing "weakness" requiring a hospital/ER visit. Within 24 hours of admission patient is back moving around again and discharged. When seen today patient has no acute physical complaints, she denies any visible bleeding. History from 10/29/20 visit: History of right-sided breast cancer in 2008, treated with bilateral mastectomy, right axillary dissection and started on Arimidex. Patient did not follow-up for some time until 2011 when she ran out of Arimidex. She did have some trouble making it to her appointments but, ultimately she stayed on Arimidex until 2015-she was supposed to complete 10 years but could not afford. She did end up resuming in 2016. Was seen in 2017 for greater saphenous vein superficial thrombosis. Had SE r/t DOAC and was started on Coumadin. Lost to follow-up for a period of time, was seen at [facility] on 11/15 with a hemoglobin in the 6 range. GI workup was negative. She ended up having both anemia and thrombocytopenia 12/16. Lab workup was negative. Bone marrow biopsy and aspirate 12/19/19 revealed myelodysplasia with 25% of marrow cellularity. No increased blasts, cytogenetics negative. PNH testing was negative. Patient was started on Procrit. This was unsuccessful, patient continued to require transfusions every 1-2 weeks. She started Luspatercept on 05/31/20. She had 1 cycle, missed cycle 2 because of hospital admission. Dose has been adjusted accordingly. She is now on the highest dose level, She has received maximum dosing without adequate response, the medication has to be discontinued now. Review of Systems 10 point review of systems is negative except as stated in HPI Past Medical History Past Medical History: Atrial Fibrillation, Blood Disorder, Cancer, Diabetes Mellitus, Hyperlipidemia, Hypertension, Renal Disease, Sleep Apnea/CPAP/BIPAP, Thyroid Disorder Additional Past Medical History / Comment(s): Heart disease, ocular neuritis, refractory anemia, breast cancer, myelodyspasia, reblozyl injection every 3 weeks for anemia, Last Myocardial Infarction Date:: 2018 History of Any Multi-Drug Resistant Organisms: None Reported Past Surgical History: Appendectomy, Breast Surgery, Cholecystectomy, Heart Catheterization With Stent Additional Past Surgical History / Comment(s): bilateral masectomy, heart cath follow up in 2000 port-a-cath 2020 Past Anesthesia/Blood Transfusion Reactions: No Reported Reaction Additional Past Anesthesia/Blood Transfusion Reaction / Comm: Pt has received blood without reaction. Date of Last Stent Placement:: 1997 Past Psychological History: Depression Smoking Status: Former smoker Past Alcohol Use History: None Reported Past Drug Use History: None Reported - Past Family History Father Family Medical History: Coronary Artery Disease (CAD), Hypertension, Myocardial Infarction ([place]) Additional Family Medical History / Comment(s): Father at age 72 from coronary artery disease with history of diabetes Mother Family Medical History: Coronary Artery Disease (CAD) Additional Family Medical History / Comment(s): Mother at age 72 with history of coronary artery disease and diabetes. Sister(s) Additional Family Medical History / Comment(s): Patient has 1 sister with no major medical problems. Patient does not have. His. Patient has 1 daughter with no major medical problems. No history of breast cancer. Medications and Allergies Home Medications Medication Instructions Recorded Confirmed Type Spironolactone [Aldactone] 25 mg PO DAILY 01/01/14 11/19/20 History Levothyroxine Sodium [Synthroid] 75 mcg PO DAILY 01/20/19 11/19/20 History Venlafaxine HCl [Effexor XR] 75 mg PO HS 01/20/19 11/19/20 History Venlafaxine HCl [Effexor XR] 150 mg PO DAILY 01/20/19 11/19/20 History lisinopriL [Zestril] 5 mg PO HS 01/20/19 11/19/20 History Amiodarone [Cordarone] 200 mg PO BID 05/03/19 11/19/20 History Cyanocobalamin [Vitamin B-12] 500 mcg PO DAILY 05/03/19 11/19/20 History Atorvastatin [Lipitor] 80 mg PO HS 07/26/20 11/19/20 History Ergocalciferol [Vitamin D2 (1250 1,250 mcg PO Q14D 07/26/20 11/19/20 History Mcg = 70033 Iu)] Gabapentin 600 mg PO QID 07/26/20 11/19/20 History metFORMIN HCL [Glucophage] 1,000 mg PO AC-BID 07/26/20 11/19/20 History Folic Acid 1 mg PO DAILY tab 10/12/20 11/19/20 Rx Insulin Detemir (Levemir) [Levemir] 35 unit SQ HS 10/23/20 11/19/20 History Insulin Detemir (Levemir) [Levemir] 40 unit SQ AC-BRKFST 10/23/20 11/19/20 History Levothyroxine Sodium [Synthroid] 200 mcg PO DAILY 10/23/20 11/19/20 History Docusate [Colace] 100 mg PO DAILY 10/28/20 11/19/20 History Furosemide [Lasix] 20 mg PO HS 10/28/20 11/19/20 History Furosemide [Lasix] 40 mg PO DAILY 11/19/20 11/19/20 History INSULIN LISPRO (humaLOG) [humaLOG] 10 units SQ BID PRN 11/19/20 11/19/20 History INSULIN LISPRO (humaLOG) [humaLOG] 10 units SQ HS PRN 11/19/20 11/19/20 History Allergies Allergy/AdvReac Type Severity Reaction Status Date / Time fluoxetine HCl [From Prozac] Allergy Intermediate Itching Verified 11/19/20 20:05 Sulfa (Sulfonamide Allergy Intermediate Itching Verified 11/19/20 20:05 Antibiotics) mercury (elemental) Allergy Rash/Hives Verified 11/19/20 20:05 gluten AdvReac Intermediate Nausea & Verified 11/19/20 20:05 Vomiting Physical Exam Vitals: Vital Signs Temp Pulse Resp BP Pulse Ox 11/20/20 12:00 65 18 135/57 11/20/20 09:19 78 18 152/77 98 11/20/20 06:35 98.3 F 84 20 167/65 96 11/20/20 04:57 98.3 F 74 18 155/54 95 11/20/20 02:48 98.3 F 73 20 154/55 95 11/20/20 02:18 98.4 F 75 18 148/58 95 11/20/20 02:08 98.3 F 75 18 144/55 98 11/20/20 02:04 98.2 F 76 18 148/59 98 11/20/20 02:00 75 20 95 11/20/20 00:43 97.6 F 74 20 146/58 95 11/20/20 00:13 97.4 F L 74 20 136/54 97 11/20/20 00:03 98.1 F 73 18 113/52 99 11/19/20 22:00 71 20 134/52 96 11/19/20 21:00 74 20 139/56 96 11/19/20 20:19 73 20 135/69 98 11/19/20 18:32 73 18 115/48 98 11/19/20 16:23 98.1 F 84 18 147/57 98 Intake and Output 11/20/20 11/20/20 11/20/20 06:59 14:59 22:59 Intake Total 620 Balance 620 Intake: Blood Product 620 Rc As-1 Unit 310 [id number] Rc As-1 Unit 310 [id number] - Constitutional General appearance: cooperative, no acute distress, obese - EENT Eyes: anicteric sclerae, EOMI ENT: hearing grossly normal, normal oropharynx - Neck Neck: no lymphadenopathy - Respiratory Respiratory: bilateral: CTA - Cardiovascular Rhythm: regular Heart sounds: normal: S1, S2 Abnormal Heart Sounds: no systolic murmur, no diastolic murmur, no rub, no S3 Gallop, no S4 Gallop, no click, no other leg Peripheral Edema: bilateral: Trace - Gastrointestinal General gastrointestinal: no absent bowel sounds, no decreased bowel sounds, no distended, no hepatomegaly, no hyperactive bowel sounds, normal bowel sounds, no organomegaly, no rigid, no scaphoid, soft, no splenomegaly, no tenderness, no umbilical hernia, no ventral hernia - Integumentary Integumentary: pale - Neurologic Neurologic: CNII-XII intact - Musculoskeletal Musculoskeletal: strength equal bilaterally - Psychiatric Psychiatric: A&O x's 3, appropriate affect Results CBC & Chem 7: 11/20/20 07:23 11/19/20 18:51 Labs: Abnormal Lab Results - Last 24 Hours (Table) 11/19/20 11/19/20 11/19/20 Range/Units 18:51 18:51 18:51 WBC (3.8-10.6) k/uL RBC 1.84 L (3.80-5.40) m/uL Hgb 6.4 L* (11.4-16.0) gm/dL Hct 18.7 L* (34.0-46.0) % MCV 101.9 H (80.0-100.0) fL RDW 26.0 H (11.5-15.5) % Plt Count 48 L (150-450) k/uL Macrocytosis Marked A APTT 19.4 L (22.0-30.0) sec BUN 36 H (7-17) mg/dL Creatinine 1.08 H (0.52-1.04) mg/dL Glucose 122 H (74-99) mg/dL POC Glucose (mg/dL) (75-99) mg/dL ALT 49 H (4-34) U/L Total Protein 6.0 L (6.3-8.2) g/dL Crossmatch 11/19/20 11/20/20 11/20/20 Range/Units 18:51 06:06 07:23 WBC 3.6 L (3.8-10.6) k/uL RBC 2.55 L (3.80-5.40) m/uL Hgb 8.1 L D (11.4-16.0) gm/dL Hct 24.3 L (34.0-46.0) % MCV (80.0-100.0) fL RDW 23.9 H (11.5-15.5) % Plt Count 46 L (150-450) k/uL Macrocytosis APTT (22.0-30.0) sec BUN (7-17) mg/dL Creatinine (0.52-1.04) mg/dL Glucose (74-99) mg/dL POC Glucose (mg/dL) 113 H (75-99) mg/dL ALT (4-34) U/L Total Protein (6.3-8.2) g/dL Crossmatch See Detail 11/20/20 Range/Units 10:59 WBC (3.8-10.6) k/uL RBC (3.80-5.40) m/uL Hgb (11.4-16.0) gm/dL Hct (34.0-46.0) % MCV (80.0-100.0) fL RDW (11.5-15.5) % Plt Count (150-450) k/uL Macrocytosis APTT (22.0-30.0) sec BUN (7-17) mg/dL Creatinine (0.52-1.04) mg/dL Glucose (74-99) mg/dL POC Glucose (mg/dL) 150 H (75-99) mg/dL ALT (4-34) U/L Total Protein (6.3-8.2) g/dL Crossmatch Assessment and Plan (1) Transfusion-dependent anemia Current Visit: Yes Status: Chronic Priority: High Code(s): D64.9 - ANEMIA, UNSPECIFIED SNOMED Code(s): 070349476 (2) Myelodysplasia (myelodysplastic syndrome) Current Visit: Yes Status: Chronic Priority: High Code(s): D46.9 - MYELODYSPLASTIC SYNDROME, UNSPECIFIED SNOMED Code(s): 130200630 (3) Transfusion of blood during current hospitalisation Current Visit: Yes Status: Acute Priority: Medium Code(s): UAI0697 - SNOMED Code(s): 633854400 Plan: Dr. Siddiqui reviewed with the patient the discussions that they have had in the past re: if she does not respond to the rybobot is all that she's been getting after a certain number of doses than the medication has to be discontinued. Unfortunately, the medication has not proven to be effective for her. She is not going to be able to receive it anymore. He reminded her that they have spoken in the past about hospice/palliative care. She asked about remaining on transfusions but, unfortunately, the transfusions are not lasting very long as her body is likely creating antibodies so the transfused blood is destroyed more rapidly. Also, continuing on transfusions does not prolong life, minimal symptom relief, greater risk for complications. Patient then stated she thinks she might like to try some treatment. Patient has a long history of not being able to come to her appointments-for whatever reasons those may be-treatment for MDS requires a lot of appointments. Plan is to have a family meeting with her, her daughter and Dr. Munguia. Case was discussed with Attending. Patient is okay to be discharged from a Hematology standpoint when she has been transfused. Will have our staff contact daughter and the home care. Patient is supposed to be on twice a week CBCs on Mondays and to allow for blood transfusions to be given during the week, intent being to prevent coming back to the hospital. attests: I have preformed H&P and developed impression and plan of care for patient, discussed with dictator. I agree with dictated note, documented as a scribe Time with Patient: Greater than 30 (Counseling and coordinating care)
[2020-11-20 16:34] VITALS: BP 140/63; PULSE 79; RESP 16
[2020-11-20] MEDS ORDERED: VENLAFAXINE HCL ER 75 MG CAP PO SCH (21:00)
[2020-11-20] MEDS ORDERED: lisinopriL 5 MG TAB PO SCH (21:00)
[2020-11-20] MEDS ORDERED: ATORVASTATIN 80 MG TAB PO SCH (21:00)
[2020-11-20] MEDS ORDERED: FUROSEMIDE 20 MG TAB PO SCH (21:00)
[2020-11-23] MEDS ORDERED: ERGOCALCIFEROL 1,250 MCG (50,000 IU) CAPSULE PO SCH (09:00)
== END 2020-11-20 16:35 | disposition home or self-care (01) ==
LOC: EC 16:03 → 1SOBS 22:27 → 6NMEDSUR 11-20 15:08
PROVIDERS: ADMIT Internal Medicine; ATTEND Internal Medicine
DX: D46.9 Myelodysplastic syndrome, unspecified (principal); D63.8 Anemia in other chronic diseases classified elsewhere; R60.0 Localized edema; I12.9 Hypertensive chronic kidney disease with stage 1 through stage 4 chronic kidney disease, or unspecified chronic kidney disease; N18.30 Chronic kidney disease, stage 3 unspecified; E11.22 Type 2 diabetes mellitus with diabetic chronic kidney disease; K21.9 Gastro-esophageal reflux disease without esophagitis; I48.0 Paroxysmal atrial fibrillation; E78.5 Hyperlipidemia, unspecified; M79.7 Fibromyalgia; E03.9 Hypothyroidism, unspecified; F41.1 Generalized anxiety disorder; G47.33 Obstructive sleep apnea (adult) (pediatric); R26.2 Difficulty in walking, not elsewhere classified; D69.6 Thrombocytopenia, unspecified; F33.9 Major depressive disorder, recurrent, unspecified; I25.2 Old myocardial infarction; D61.818 Other pancytopenia; M79.2 Neuralgia and neuritis, unspecified; K90.41 Non-celiac gluten sensitivity; Z88.4 Allergy status to anesthetic agent; Z79.4 Long term (current) use of insulin; Z88.2 Allergy status to sulfonamides; Z88.8 Allergy status to other drugs, medicaments and biological substances; Z79.890 Hormone replacement therapy; Z79.899 Other long term (current) drug therapy; Z87.891 Personal history of nicotine dependence; Z85.3 Personal history of malignant neoplasm of breast; Z90.13 Acquired absence of bilateral breasts and nipples; Z90.49 Acquired absence of other specified parts of digestive tract; Z83.3 Family history of diabetes mellitus; Z82.49 Family history of ischemic heart disease and other diseases of the circulatory system; Z80.3 Family history of malignant neoplasm of breast
CPT/HCPCS: 36430; 96360; 96361; 96372; 99285; 36415; 93005; 97162; 86900; 86901; 80053; 85025 ×2; 85610; 85730; 86850; 86920; G0378 ×2; P9016; J1650